=== PATIENT | female | born 1960 | race Caucasian/White ===

== ENCOUNTER 2018-04-19 07:08 | Outpatient (CLI) | payer MEDICAID, SELFPAY ==
[2018-04-19 08:15] LABS: ESR 13 MM/HR (0-30)
[2018-04-19 10:14] LABS: ALT 30 U/L (12-78); C-Reactive Protein 0.07 mg/dL (0.0-0.3)
[2018-04-19 10:42] LABS: Cholesterol 288 mg/dL (50-200); HDL Cholesterol 55 mg/dL (40-60); LDL CHOLESTEROL 172 mg/dL (<100); Triglyceride 287 mg/dL (30-150)
== END 2018-04-19 07:28 ==
PROVIDERS: PCP Family Medicine; Visit Provider Family Medicine
DX: E78.5 Hyperlipidemia, unspecified (principal); M02.9 Reactive arthropathy, unspecified
CPT/HCPCS: 36415; 80061; 83721; 85652; 84460; 86140

== ENCOUNTER 2018-05-12 17:02 | Outpatient (REF) | payer MEDICAID, SELFPAY ==
--- NOTE | 2018-05-12 16:00 | PAPFT_PTH ---
PATIENT: [facility]fsaneh Lowe [id number] AGE/SX: 57/F ROOM: RE05/12/[address]: Soraida Sims V : 1960 BED: DIS: 05/12/2018 SPEC #: [id number] RECD: 05/13/18 13:07 STATUS: NIRMAL DORSEY #: [id number] MOIZ: 05/12/18 16:[address]: Soraida Sims V DEPT: [facility] Cytology RECD BY: Arleen Guillory Tissues: 1 - CX/ENDOCX FOR PAP SMEARS Procedures: PAP THIN PREP/UVM Screening HPV DNA PROBE Comments: [id number]
[2018-05-12 20:37] LABS: HCT 43.8 % (36.0-46.0); HGB 14.4 g/dL (12.0-15.5); Mean Corp. HGB Concentration 32.9 g/dL (32.0-36.0); Mean Corpuscular Hemoglobin 30.8 pg (27.0-33.0); Mean Corpuscular Volume 93.8 fL (80-95); Mean Platelet Volume 11.4 fL (8.0-11.0); Platelet Count 335 x1000/uL (130-400); RBC 4.67 m/cumm (4.00-5.20); White Blood Cell Count 10.27 k/cumm (4.4-10.8)
[2018-05-12 20:59] LABS: ALT 29 U/L (12-78); AST 20 U/L (15-37); Albumin 4.2 g/dL (3.4-5.0); Alkaline Phosphatase 67 U/L (46-116); Anion Gap 7.3 mmol/L (3-11); BUN 15 mg/dL (7-18); Bilirubin, Total 0.5 mg/dL (0.2-1.0); CO2 32.7 mmol/L (21.0-32.0); Calcium 9.9 mg/dL (8.5-10.1); Chloride 100 mmol/L (98-107); Cholesterol 245 mg/dL (50-200); Estimated GFR 56.75 (mL/min/1.73m2); Ferritin 162 ng/mL (8-388); Glucose 75 mg/dL (70-100); HDL Cholesterol 75 mg/dL (40-60); LDL CHOLESTEROL 137 mg/dL (<100); Magnesium 1.9 mg/dL (1.8-2.4); Potassium 4.6 mmol/L (3.5-5.1); Sodium 140 mmol/L (136-145); TSH (W/Ref FT4) 2.88 uIU/mL (0.358-3.74); Total Protein 7.6 g/dL (6.4-8.2); Triglyceride 212 mg/dL (30-150)
== END 2018-05-12 17:22 ==
LOC: NCHCN 17:02
PROVIDERS: PCP Family Medicine; Visit Provider Family Medicine
DX: E78.5 Hyperlipidemia, unspecified (principal); Z13.29 Encounter for screening for other suspected endocrine disorder; Z13.0 Encounter for screening for diseases of the blood and blood-forming organs and certain disorders involving the immune mechanism; Z13.228 Encounter for screening for other metabolic disorders; Z12.4 Encounter for screening for malignant neoplasm of cervix; Z11.51 Encounter for screening for human papillomavirus (HPV)
CPT/HCPCS: 80053; 80061; 83721; 85027; 88142; 82728; 83735; 84443; 87624

== ENCOUNTER 2018-05-23 02:21 | Outpatient (CLI) | payer MEDICAID, SELFPAY ==
[2018-05-23 14:31] LABS: HCT 43.7 % (36.0-46.0); HGB 14.4 g/dL (12.0-15.5); Mean Corpuscular Volume 94.2 fL (80-95); Mean Platelet Volume 10.9 fL (8.0-11.0); Platelet Count 314 x1000/uL (130-400); RBC 4.64 m/cumm (4.00-5.20); White Blood Cell Count 9.13 k/cumm (4.4-10.8)
[2018-05-23 15:05] LABS: ESR 15 MM/HR (0-30)
[2018-05-23 15:49] LABS: ALT 28 U/L (12-78); AST 18 U/L (15-37); Alkaline Phosphatase 66 U/L (46-116); Anion Gap 11.2 mmol/L (3-11); BUN 15 mg/dL (7-18); Bilirubin, Total 0.7 mg/dL (0.2-1.0); C-Reactive Protein 0.09 mg/dL (0.0-0.3); CO2 28.8 mmol/L (21.0-32.0); Calcium 9.3 mg/dL (8.5-10.1); Chloride 102 mmol/L (98-107); Estimated GFR 50.84 (mL/min/1.73m2); Glucose 121 mg/dL (70-100); Potassium 4.1 mmol/L (3.5-5.1); Sodium 142 mmol/L (136-145); Total Protein 7.4 g/dL (6.4-8.2)
== END 2018-05-23 02:41 ==
PROVIDERS: PCP Family Medicine; Visit Provider Family Medicine
DX: K92.1 Melena (principal); R10.9 Unspecified abdominal pain
CPT/HCPCS: 36415; 80053; 85027; 85652; 86140

== ENCOUNTER 2018-06-29 01:13 | Outpatient (CLI) | payer MEDICAID, SELFPAY ==
--- NOTE | 2018-06-29 10:23 | DI.CT_ITS ---
SYMPTOMS/DIAGNOSIS: ABD PAIN, R10.9, BLOOD IN STOOL, K92.1 CT OF THE ABDOMEN AND PELVIS: There are no prior comparison exams. Images were performed from the lung bases through the ischial tuberosities after IV and oral contrast. The heart size is normal. The lung bases are clear. The liver appears mildly enlarged and shows mild fatty infiltration. There are two enhancing areas in the right lobe of the liver, one measuring 1.6 cm and the other near the inferior medial border of the liver measuring 8 mm. They may represent AV malformations. The gallbladder, spleen, adrenals, pancreas, kidneys, uterus, ovaries and bladder are unremarkable. There are diverticula in the sigmoid region of the colon as well as wall thickening of the sigmoid which could represent muscular hypertrophy. No focal mass is visible. There is no surrounding inflammation. The appendix appears normal. No adenopathy, free air or free fluid is seen. The aorta shows mild calcification and is normal in diameter. IMPRESSION: 1. Sigmoid diverticulosis without evidence of diverticulitis. There is muscular hypertrophy. No mass is visible. Correlation with colonoscopy is recomended. 2. Enhancing lesions in the liver may represent AV malformations or hemangiomas. Further evaluation with ultrasound could be considered.
[2018-06-29] MEDS: Omnipaque 350 MG/ML 100 ML BTL IV (10:24)
[2018-06-29] MEDS: Breeza Beverage 473 ML BTL PO ×2 (10:25→10:26)
[2018-06-29] MEDS: Omnipaque 350 MG/ML 50 ML BTL PO (10:26)
== END 2018-06-29 01:33 ==
PROVIDERS: PCP Family Medicine; Visit Provider Family Medicine
DX: R10.9 Unspecified abdominal pain (principal); K92.1 Melena; K57.30 Diverticulosis of large intestine without perforation or abscess without bleeding; K76.9 Liver disease, unspecified
CPT/HCPCS: 74177; J3490; Q9967

== ENCOUNTER 2018-10-28 16:07 | Outpatient (REF) | payer MEDICAID, SELFPAY | END 2018-10-28 16:27 | LOC: NCHCN 16:07 | PROVIDERS: PCP Family Medicine; Visit Provider Family Medicine | DX: R35.0 Frequency of micturition (principal) | CPT/HCPCS: 87086 ==

== ENCOUNTER 2019-01-17 12:58 | Emergency (ER) | payer MEDICAID, SELFPAY ==
[2019-01-17 13:04] VITALS: BP 128/65; PULSE 89; RESP 18; TEMP 36.4; O2SAT 95
--- NOTE | 2019-01-17 13:26 | DI.RAD_ITS ---
SYMPTOMS/DIAGNOSIS: TRAUMA, ANKLE AND FOOT PAIN RIGHT ANKLE: There is a fracture extends transversely through the lateral malleolus. No additional fractures are seen. There is no ankle mortise widening. Lateral soft tissue swelling is seen. There is a small plantar calcaneal spur. IMPRESSION: Nondisplaced fracture of the lateral malleolus. RIGHT FOOT: No fracture or dislocation is seen. IMPRESSION: Negative right foot.
--- NOTE | 2019-01-17 14:48 | ED.GENADUL_ITS ---
Discharge Plan Disposition Patient Disposition: HOME Condition: Stable Discharge Details Chief Complaint: Orthopedic Clinical Impression: Fracture of distal end of fibula Primary Care Provider: Soraida Sims V ED Provider: Leena Collins Home Meds and New Rx's Prescriptions: No Action Spiriva with HandiHaler 1 PUFF capsule, w/inhalation device 1 spray Inhalation PRN PRNRF: 0 atorvastatin [Lipitor] 10 MG tablet 1 tab PO DAILY RF: 0 ibuprofen [Ibuprofen IB] 200 MG tablet QID PRN PRNRF: 0 Discharge Instructions Instructions: Ankle Fracture (ED), Crutch Instructions (ED) Additional Instructions: Please return immediately to the emergency department if you develop any new or worsening symptoms or if you become otherwise concerned. It is extremely important that you call as soon as possible to make an appointment to be seen in follow-up this visit by an orthopedic surgeon and also by your primary care doctor. Referrals: Soraida Sims MD [Primary Care Provider] - Pedro Pablo Brownlee MD [[facility] STAFF PHYSICIAN] - Discharge Data Discharge Date/Time-TO BE ENTERED AT DEPARTURE: 01/17/19 14:51 Medical Decision Making Afsaneh Lowe is a 4-year-old woman with a history of hyperlipidemia, asthma who presented to the emergency department with persistent ankle pain and swelling since stepping off a curb and inverting her ankle 8 days ago. On exam patient is very well and nontoxic appearing. There is edema, tenderness, and ecchymosis over the right medial malleolus and tenderness over the dorsal aspect of the right foot without skin changes. Concern for ankle, foot fracture. Exam/history is not consistent with Hans of or other fracture of the proximal will tibia/fibula, other acute emergent life/limb threatening process. Plan for x-rays. X-rays show nondisplaced distal fibula fracture. I discussed patient presentation and imaging results with Dr. Brownlee orthopedic surgery who requested walking boot, weightbearing as tolerated, outpatient follow-up with orthopedics. Patient was placed on Ortho list for outpatient follow-up. Patient was placed in a walking boot, given crutches for weightbearing as tolerated. Patient ambulated in the emergency department and walking boot without issue. I had a lengthy discussion with the patient regarding home care, return to emergency department precautions, and importance of outpatient follow- up. Patient verbalized understanding of plan was amenable. Patient was discharged home with clear plan for outpatient follow-up. All questions were answered. Medical Records Medical records reviewed: Yes I reviewed the patient's medical records. Imaging Data Radiologic Study: Attestation: I personally reviewed and interpreted this imaging study as follows: Radiologist's impression: RIGHT ANKLE: There is a fracture extends transversely through the lateral malleolus. No additional fractures are seen. There is no ankle mortise widening. Lateral soft tissue swelling is seen. There is a small plantar calcaneal spur. IMPRESSION: Nondisplaced fracture of the lateral malleolus. RIGHT FOOT: No fracture or dislocation is seen. IMPRESSION: Negative right foot. HPI General Mode of arrival: ambulatory . Date/Time Provider Initiated Documentation: 01/17/19 13:26 . Limitations to Documentation: no limitations . Information obtained by: patient . HPI Narrative: Afsaneh Lowe is a 4-year-old woman with a history of hyperlipidemia, asthma presenting to the emergency department with ankle pain. Patient reports that 8 days ago she stepped off a curb and inverted her right ankle. She has had swelling and pain to the right ankle since that time. Patient has been able to weight-bear but with some pain. She reports that she came to the emergency department today given continuation of symptoms. There has been no worsening of symptoms. She denies any pain to the thigh, knee, lower leg, or foot. Reports that she feels otherwise very well and in her usual state of health. Denies other symptoms. Denies any other injuries at the time of the ankle injury, did not fall to the ground, did not hit her head. Related Data Home Medications Medication Instructions Recorded Confirmed tiotropium bromide [Spiriva 1 spray INHALATION PRN PRN 04/19/15 01/17/19 Handihaler] atorvastatin [Lipitor] 1 tab PO DAILY 07/06/15 01/17/19 ibuprofen [Ibuprofen Ib] QID PRN PRN 09/18/15 09/18/15 Allergies Allergy/AdvReac Type Severity Reaction Status Date / Time acetaminophen [From Vicodin] Allergy Intermediate Cold Unverified 01/17/19 13:11 sweats, vomiting cephalexin [Cephalexin] Allergy Intermediate Skin Rash Unverified 01/17/19 13:11 hydrocodone bitartrate Allergy Intermediate Cold Unverified 01/17/19 13:11 [From Vicodin] sweats, vomiting Penicillins Allergy Intermediate rash with Unverified 01/17/19 13:11 all cillins banana Allergy abd Unverified 01/17/19 13:11 bloating clarithromycin [From Biaxin] Allergy rash/hives Unverified 01/17/19 13:11 adhesive tape AdvReac Unknown Skin Rash Unverified 01/17/19 13:11 adhesive AdvReac Topical Unverified 01/17/19 13:11 Irritation codeine AdvReac sick Unverified 01/17/19 13:11 black hair dye Allergy Intermediate Hives Uncoded 01/17/19 13:11 eggs Allergy bloating Uncoded 01/17/19 13:11 General Stated Complaint: Orthopedic MIGUEL: 4 Review of Systems Review of Systems Constitutional: denies fevers Eyes: denies eye pain ENT: denies facial pain, dental pain, sore throat Cardiovascular: denies chest pain Respiratory: denies SOB GI: denies abdominal pain, vomiting, diarrhea : denies flank pain MSK: denies back pain, neck pain, reports right ankle pain Skin: denies rash Neuro: denies headaches, numbness, weakness PFSH Medical History AGATHA III (cervical intraepithelial neoplasia III) Surgical History Arthroscopy, Shoulder Trigger Finger release Family History Mother Personal history of malignant neoplasm Social History Smoking/Tobacco Use Status: Current every day Tobacco Type: cigarettes Alcohol Intake: never Drug use: Never Do you feel safe at home: Yes Do you feel safe in your relationship?: Yes Exam Narrative Exam Narrative: Constitutional: well and [id number], pleasant, conversing normally HENT: head atraumatic/normocephalic/normal inspection, mucous membranes moist Eyes: conjunctiva normal, sclera normal, pupils 3mm b/l Neck: no stridor, trachea midline Resp: normal work of breathing Cardio: normal rate, normal rhythm Skin: warm, dry, normal color, no rash Neuro: alert, not altered, grossly non-focal, normal tone Ext: Right ankle with mild edema, ecchymosis over the medial aspect, tenderness the medial aspect of the ankle and the proximal dorsal aspect of the foot, no tenderness of the lateral right ankle, heel, plantar surface of the foot. Normal range of motion of the right toes. DP pulses intact and symmetric. Brisk cap refill of the left toes. Normal sensation of the left foot. No tenderness to palpation of the proximal lower leg. Psych: normal mood, normal affect, normal behavior Course Vital Signs Temperature 36.4 C L 01/17/19 13:04 Pulse 89 01/17/19 13:04 Respiratory Rate 18 01/17/19 13:04 Blood Pressure 128/65 01/17/19 13:04 Pulse Oximetry 95 01/17/19 13:04 Temperature 36.4 C L 01/17/19 13:04 Temperature Source Temporal Artery Scan 01/17/19 13:04 Pulse 89 01/17/19 13:04 Respiratory Rate 18 01/17/19 13:04 Respiratory Effort Non-Labored 01/17/19 13:10 Blood Pressure 128/65 01/17/19 13:04 Blood Pressure Position Supine 01/17/19 13:04 Pulse Oximetry 95 01/17/19 13:04 Oxygen Delivery Method Room Air 01/17/19 13:04 Oxygen Flow Rate 0 01/17/19 13:04 Pain Level 5 01/17/19 13:21
== END 2019-01-17 14:51 | disposition home or self-care (01) ==
PROVIDERS: Emergency Provider Student in an Organized Health Care Education/Training Program; PCP Family Medicine
DX: S82.491A Other fracture of shaft of right fibula, initial encounter for closed fracture (principal); W10.1XXA Fall (on)(from) sidewalk curb, initial encounter; X50.9XXA Other and unspecified overexertion or strenuous movements or postures, initial encounter
CPT/HCPCS: 27786; 73610; 73630; E0114; L4361

== ENCOUNTER 2019-01-30 13:54 | Outpatient (CLI) | payer MEDICAID, SELFPAY ==
--- NOTE | 2019-01-30 10:57 | DI.RAD_ITS ---
SYMPTOM/DIAGNOSIS: F/U FRACTURE RIGHT ANKLE: 01/30 Four views were obtained. The previously described fracture of the distal fibula is again noted with no gross interval change in alignment of the fracture fragments in comparison with examination of 01/17/19.. The ankle mortise remains well maintained.
== END 2019-01-30 14:14 ==
PROVIDERS: PCP Family Medicine; Visit Provider Student in an Organized Health Care Education/Training Program
DX: S82.491D Other fracture of shaft of right fibula, subsequent encounter for closed fracture with routine healing (principal)
CPT/HCPCS: 73610

== ENCOUNTER 2019-02-20 11:40 | Outpatient (CLI) | payer MEDICAID, SELFPAY ==
--- NOTE | 2019-02-20 10:53 | DI.RAD_ITS ---
SYMPTOM/DIAGNOSIS; F/U FRACTURE RIGHT ANKLE: 02/20 Three views were obtained. Ankle mortise appears fairly well maintained. There is a nondisplaced fracture as previously described of the distal fibula, no gross interval change in alignment in comparison with examination of January 30
== END 2019-02-20 12:00 ==
PROVIDERS: PCP Family Medicine; Visit Provider Student in an Organized Health Care Education/Training Program
DX: S82.491D Other fracture of shaft of right fibula, subsequent encounter for closed fracture with routine healing (principal)
CPT/HCPCS: 73610

== ENCOUNTER 2019-07-20 15:42 | Outpatient (REF) | payer MEDICAID, SELFPAY ==
[2019-07-20 21:42] LABS: ALT 26 U/L (14-59); AST 21 U/L (15-37); Albumin 4.3 g/dL (3.4-5.0); Alkaline Phosphatase 63 U/L (46-116); BUN 12 mg/dL (7-18); Bilirubin, Total 0.7 mg/dL (0.2-1.0); CREATININE 0.94 mg/dL (0.55-1.02); Calcium 9.6 mg/dL (8.5-10.1); Chloride 102 mmol/L (98-107); Glucose 63 mg/dL (74-106); Potassium 4.1 mmol/L (3.5-5.1); Sodium 142 mmol/L (136-145); Total Protein 7.5 g/dL (6.4-8.2)
[2019-07-24 15:35] LABS: IgA 198 mg/dL (85-499); Tissue Transglutaminase IgA 1.6 U/mL (<4.0)
== END 2019-07-20 16:02 ==
LOC: NCHCN 15:42
PROVIDERS: PCP Family Medicine; Visit Provider Family Medicine
DX: R14.0 Abdominal distension (gaseous) (principal); M02.9 Reactive arthropathy, unspecified
CPT/HCPCS: 80053; 82784; 83516

== ENCOUNTER 2019-07-28 22:45 | Outpatient (REF) | payer MEDICAID, SELFPAY | END 2019-07-28 23:05 | LOC: NCHCN 22:45 | PROVIDERS: PCP Family Medicine; Visit Provider Physician Assistant Medical | DX: R35.0 Frequency of micturition (principal) | CPT/HCPCS: 87086 ==

== ENCOUNTER 2019-07-31 14:52 | Outpatient (CLI) | payer MEDICAID, SELFPAY ==
--- NOTE | 2019-07-31 14:45 | DI.RAD_ITS ---
EXAM: XR SHOULDER LT COMPLETE 2+V INDICATION: EVAL L SHOULDER PAIN. COMPARISON: LEFT SHOULDER COMPLETE from 04/19/2015 TECHNIQUE: 2D digital imaging was performed. FINDINGS: There are degenerative changes seen at the glenohumeral joint characterized by periarticular spurring of the humeral head. There are mild hypertrophic changes at the acromioclavicular joint. Soft tiss ues are unremarkable. No acute fracture or dislocation is present. IMPRESSION: Osteoarthritis of the left shoulder.
--- NOTE | 2019-07-31 14:45 | DI.RAD_ITS ---
EXAM: XR CERVICAL SPINE COMP 4-5V INDICATION: eval spine pain and LUE pain. COMPARISON: No exams were available for comparison TECHNIQUE: 2D digital imaging was performed. FINDINGS: The odontoid is intact. The lateral masses are well aligned. There are endplate osteophytes and dis c space narrowing at C5-6 and C6-7. [id number] neural foraminal narrowing is seen bilaterally at C5-6 and C6-C7. No acute fracture or subluxation is seen in the cervical spine. The prevertebral soft tissues are unremarkable. IMPRESSION: Moderate degenerative changes in the cervical spine as described.
== END 2019-07-31 15:12 ==
PROVIDERS: PCP Family Medicine; Visit Provider Student in an Organized Health Care Education/Training Program
DX: M25.512 Pain in left shoulder (principal); M19.012 Primary osteoarthritis, left shoulder; M54.2 Cervicalgia; M50.322 Other cervical disc degeneration at C5-C6 level; M50.323 Other cervical disc degeneration at C6-C7 level
CPT/HCPCS: 72050; 73030

== ENCOUNTER 2019-08-03 16:23 | Outpatient (REF) | payer MEDICAID, SELFPAY ==
[2019-08-03 20:03] LABS: Bacteria Negative HPF (Negative); C & S Indicated? No; Casts Negative LPF (Negative); Crystals Negative HPF (Negative); Epithelial Cells Negative HPF (Negative); Mucus Negative (Negative); Other Cells Negative (Negative); RBC Negative HPF (0-2)
== END 2019-08-03 16:43 ==
LOC: NCHCN 16:23
PROVIDERS: PCP Family Medicine; Visit Provider Family Medicine
DX: R35.0 Frequency of micturition (principal)
CPT/HCPCS: 81015

== ENCOUNTER 2019-09-01 14:37 | Outpatient (CLI) | payer MEDICAID, SELFPAY ==
[2019-09-04 16:36] LABS: COVID-19 RT-PCR Result Not Detected (NotDetected)
== END 2019-09-01 14:57 ==
PROVIDERS: PCP Family Medicine; Visit Provider Nurse Practitioner Family
DX: Z20.828 Contact with and (suspected) exposure to other viral communicable diseases (principal); J44.9 Chronic obstructive pulmonary disease, unspecified
CPT/HCPCS: U0003

== ENCOUNTER 2020-01-29 08:57 | Outpatient (REF) | payer MEDICAID, SELFPAY ==
[2020-01-29 19:41] LABS: HCT 43.4 % (36.0-46.0); HGB 13.8 g/dL (11.2-15.7); MCH 30.8 pg (27.0-33.0); MCHC 31.8 % (32.0-36.0); MCV 96.9 fL (80-95); MPV 11.5 fL (8.0-11.0); Platelet Count 347 10^3/uL (130-400); RBC 4.48 10^6/uL (3.93-5.22); RDW 12.4 % (11.7-14.6); RDW-SD 44.1 fL; WBC 9.45 10^3/uL (4.4-10.8)
[2020-01-29 20:28] LABS: ALT 32 U/L (14-59); AST 21 U/L (15-37); Albumin 3.8 g/dL (3.4-5.0); Alkaline Phosphatase 69 U/L (46-116); BUN 14 mg/dL (7-18); Bilirubin, Total 0.6 mg/dL (0.2-1.0); CREATININE 1.02 mg/dL (0.55-1.02); Calcium 9.2 mg/dL (8.5-10.1); Calculated LDL 106 mg/dL (<100); Chloride 105 mmol/L (98-107); Cholesterol 198 mg/dL (<200); Estimated GFR 55.09 (mL/min/1.73m2); Glucose 95 mg/dL (74-106); HDL Cholesterol 57 mg/dL (40-60); Potassium 4.5 mmol/L (3.5-5.1); Sodium 142 mmol/L (136-145); TSH 1.93 uIU/mL (0.36-3.74); Triglyceride 179 mg/dL (<150)
== END 2020-01-29 09:17 ==
LOC: NCHCN 08:57
PROVIDERS: PCP Family Medicine; Visit Provider Family Medicine
DX: R53.83 Other fatigue (principal); E83.42 Hypomagnesemia; E78.5 Hyperlipidemia, unspecified
CPT/HCPCS: 80053; 80061; 85027; 83735; 84443

== ENCOUNTER 2020-02-01 16:53 | Outpatient (REF) | payer MEDICAID, SELFPAY ==
[2020-02-01 19:34] LABS: C-Reactive Protein 0.18 mg/dL (0.0-0.3)
[2020-02-01 20:11] LABS: ESR 28 mm/hr (0-30)
== END 2020-02-01 17:13 ==
LOC: NCHCN 16:53
PROVIDERS: PCP Family Medicine; Visit Provider Family Medicine
DX: R51 Headache (principal); M79.10 Myalgia, unspecified site
CPT/HCPCS: 85652; 86140

== ENCOUNTER 2020-04-01 15:37 | Outpatient (REF) | payer MEDICAID, SELFPAY ==
[2020-04-04 03:02] LABS: Patient Race White; SARS-CoV-2 RNA Undetected (Undetected); SARS-CoV-2 Specimen Source Nasal
== END 2020-04-01 15:57 ==
LOC: NCHCN 15:37
PROVIDERS: PCP Family Medicine; Visit Provider Family Medicine
DX: Z20.828 Contact with and (suspected) exposure to other viral communicable diseases (principal)
CPT/HCPCS: U0003

== ENCOUNTER 2020-04-05 14:06 | Outpatient (REF) | payer MEDICAID, SELFPAY ==
[2020-04-09 23:31] LABS: Patient Race White; SARS-CoV-2 RNA Undetected (Undetected); SARS-CoV-2 Specimen Source Nasal
== END 2020-04-05 14:26 ==
LOC: NCHCN 14:06
PROVIDERS: PCP Family Medicine; Visit Provider Family Medicine
DX: Z20.828 Contact with and (suspected) exposure to other viral communicable diseases (principal)
CPT/HCPCS: U0003

== ENCOUNTER 2020-06-03 00:33 | Outpatient (CLI) | payer MEDICAID, SELFPAY ==
--- NOTE | 2020-06-03 | DI.US_ITS ---
EXAM: US ABDOMEN CLINICAL HISTORY: RUQ PAIN,R10.11,ABD BLOATING,R14.0 TECHNIQUE: Ultrasound abdomen performed using standard protocol. FINDINGS: ABDOMINAL AORTA AND IVC: Visualized portions normal caliber. PANCREAS: Normal where visualized. LIVER: There is diffuse increased echogenicity of the liver. This is consistent with fatty infiltrat ion. The liver measures almost 21 cm. There is a 1.9 x 1.5 x 2 cm hypoechoic area in the right lobe of the liver. This appears to correspond to the enhancing lesion on the CT abdomen and pelvis from 06/29/2018. Hepatopedal flow in the Portal Vein. GALLBLADDER: No evidence of cholelithiasis. No evidence of wall thickening. No pericholecystic fluid identified. BILIARY SYSTEM: Common bile duct measures < 7 mm. No intrahepatic biliary ductal dilation. ASHER'S SIGN: Negative. KIDNEYS: Kidneys are symmetric in size. No evidence of renal calculi. No evidence of hydronephrosis. No renal mass or cyst identified. SPLEEN: Not enlarged. ASCITES: None seen. IMPRESSION: 1. Hepatomegaly and hepatic steatosis. 2. 1.9 x 1.5 x 2 cm hypoechoic avascular lesion in the right lobe of the liver. It appears to corres pond to enhancing mass seen on the CT scan from 06/29/2018. A follow-up CT scan of the abdomen with co ntrast using the hepatic hemangioma protocol is recommended for re-evaluation. DATA REPOSITORY:
--- NOTE | 2020-06-03 08:20 | DI.CTLCSR_ITS ---
EXAM: CT CHEST LUNG CANCER SCREEN CLINICAL HISTORY: SCREENING FOR LUNG CA,F17.200,CURRENT SMOKER,[facility],Z00.00 TECHNIQUE: Imaging Protocol: Axial computed tomography images with coronal and sagittal reformatted images were created and reviewed COMPARISON: CR CHEST 2 VIEWS PA,LAT from 10/15/2014 FINDINGS: Tracheobronchial tree: Patent where visualized. Mediastinum and Milagros: No dominant adenopathy or fluid collection. Pulmonary parenchyma: No consolidation or dominant measurable mass. No architectural distortion. Ther e is a triangular nodule associated with the left major fissure superiorly most consistent with a int raparenchymal lymph node. There is a calcified granuloma seen in the right middle lobe. Lung Nodules: No suspicious noncalcified pulmonary nodules. Pleura: No effusion or pneumothorax. Heart: The heart is not dilated. Moderate coronary artery calcification. No pericardial effusion. Aorta: Thoracic aorta non-dilated.Atherosclerosis. Upper abdomen: Unremarkable. Bones: Within normal limits. Soft Tissues: Unremarkable. IMPRESSION: No pulmonary nodules. Lung RADS Cat 1 - Negative: No nodules and definitely benign nodules Lung-RADS 1.0 CATEGORIES: Category 0 - Prior chest CT exam(s) being located for comparison. Category 1 - Annual screening in 12 months. No nodules or definitely benign nodules. Category 2 - Annual screening in 12 months. Benign appearance. Nodules with low likelihood of becomin g active cancer. Category 3 - 6-month follow-up. Probably benign. Short-term follow-up suggested. Nodules with low lik elihood of becoming active cancer. Category 4A - 3-month follow-up and CT/PET if >8 mm in size. Suspicious finding. Findings which requi re additional testing. Category 4B - Findings which require additional testing and tissue sampling. Suspicious finding. C Added to Any of the Above - History of prior lung cancer screening. S Added to Any of the Above - Significant unexpected other finding. RADIATION DOSE DELIVERED: 76.15mGy.cm Total DLP DATA REPOSITORY: All CT scans at this facility are submitted to the National Radiology Data Registry (NRDR) Dose Index Registry (DIR) with the [employer] (ACR). RADIATION OPTIMIZATION: All CT scans at this facility use at least one of these dose optimization te chniques: automated exposure control; mA and/or kV adjustment per patient size (includes targeted exa ms where dose is matched to clinical indication); or iterative reconstruction.
== END 2020-06-03 00:53 ==
PROVIDERS: PCP Family Medicine; Visit Provider Family Medicine
DX: F17.210 Nicotine dependence, cigarettes, uncomplicated (principal); Z00.00 Encounter for general adult medical examination without abnormal findings; K76.0 Fatty (change of) liver, not elsewhere classified; R16.0 Hepatomegaly, not elsewhere classified; K76.89 Other specified diseases of liver
CPT/HCPCS: G0297; 76700

== ENCOUNTER 2020-06-24 01:26 | Outpatient (CLI) | payer MEDICAID, SELFPAY ==
[2020-06-24 08:15] LABS: CREATININE 1.16 mg/dL (0.55-1.02); Estimated GFR 47.49 (mL/min/1.73m2)
== END 2020-06-24 01:46 ==
PROVIDERS: PCP Family Medicine; Visit Provider Family Medicine
DX: K76.0 Fatty (change of) liver, not elsewhere classified (principal)
CPT/HCPCS: 82565

== ENCOUNTER 2020-06-26 12:47 | Outpatient (CLI) | payer MEDICAID, SELFPAY ==
--- NOTE | 2020-06-26 11:15 | DI.RAD_ITS ---
EXAM: XR SHOULDER RT COMPLETE 2+V CLINICAL HISTORY: F/u. TECHNIQUE: 2D digital imaging was performed. COMPARISON: CR XR SHOULDER LT COMPLETE 2+V from 06/26/2020 FINDINGS: Two views of the right shoulder reveal no evidence of fracture nor dislocation no abnormal soft tissu e calcifications. The subacromial space is not diminished. There are degenerative changes in the gl enohumeral joint with some joint space narrowing and there is a prominent osteophyte on the inferior articular surface of the humeral head. There is some widening of the AC joint, possibly postsurgical . No evidence of os acromiale. IMPRESSION: Prominent osteophyte on the inferior articular surface of the humeral head-degenerative osteoarthriti c changes. Widened ipsilateral right AC joint. Correlation with any history of prior decompression surgery teodoro mmended. DATA REPOSITORY: RADIATION DOSE DELIVERED:
--- NOTE | 2020-06-26 11:15 | DI.RAD_ITS ---
EXAM: XR CERVICAL SP OSBORN TRAUMA 2-3V CLINICAL HISTORY: F/u. TECHNIQUE: 2D digital imaging was performed. COMPARISON: Prior x-rays July 2019 FINDINGS: There is no evidence of fracture, listhesis, nor offset of the spinal laminar line. There is chronic disc space narrowing at C5-6 level and C6-7 level again noted, unchanged. Other disc spaces above t his exhibited relatively well preserved disc height. There is some degenerative changes in the lower facet joints. No cervical ribs. No osseous lesions. IMPRESSION: Chronic degenerative disc disease. No significant radiographic change compared to July 2019. DATA REPOSITORY: RADIATION DOSE DELIVERED:
--- NOTE | 2020-06-26 11:15 | DI.RAD_ITS ---
EXAM: XR SHOULDER LT COMPLETE 2+V CLINICAL HISTORY: F/u. TECHNIQUE: 2D digital imaging was performed. COMPARISON: CR XR SHOULDER LT COMPLETE 2+V from 07/31/2019 FINDINGS: There is no evidence of fracture or dislocation. There are no abnormal soft tissue calcifications in the subacromial space. Subacromial space does not appear diminished. Main finding here is a prominent osteophyte on the inferior articular surface of the humeral head, si milar to what is seen in the opposite-right Shoulder. However, there is also an intra-articular loos e peripherally calcified body evident which measures approximately 8 x 5 millimeters. This is just m edial to the humeral head-neck junction and is most probably within the inferior recess of the glenoh umeral joint. IMPRESSION: DATA REPOSITORY: RADIATION DOSE DELIVERED:
== END 2020-06-26 13:07 ==
PROVIDERS: PCP Family Medicine; Visit Provider Student in an Organized Health Care Education/Training Program
DX: M25.512 Pain in left shoulder (principal); M25.712 Osteophyte, left shoulder; M25.511 Pain in right shoulder; M19.011 Primary osteoarthritis, right shoulder; M25.711 Osteophyte, right shoulder; M47.812 Spondylosis without myelopathy or radiculopathy, cervical region
CPT/HCPCS: 72040; 73030

== ENCOUNTER 2020-07-22 01:39 | Outpatient (CLI) | payer MEDICAID, SELFPAY ==
--- NOTE | 2020-07-22 | DI.MRI_ITS ---
EXAM: MR UPPER JOINT RT WO CLINICAL HISTORY: RT SHOULDER PAIN, TENDONITIS,ARTHRITIS RT GLENOHUMERAL JOINT. TECHNIQUE: Multiplanar multisequence MRI was performed. COMPARISON: CR XR SHOULDER RT COMPLETE 2+V from 06/26/2020 CR XR SHOULDER RT COMPLETE 2+V from 06/26/2020 FINDINGS: BONES: There is no fracture or contusion pattern. JOINTS: There are again seen postsurgical changes at the acromioclavicular joint. There is a large o steophyte at the inferior aspect of the humeral head. There is loss of the articular cartilage at th e glenohumeral joint. Small joint effusion. TENDONS: Supraspinatus: There is tendinosis of the supraspinatus tendon. Infraspinatus: Unremarkable. Subscapularis: There is mild tendinosis of the subscapularis tendon. Teres Minor: Unremarkable. Biceps and Jennings: Unremarkable. MUSCLES: Unremarkable. GLENOID LABRUM: Abnormal signal in size is seen at the posterior and inferior glenoid labrum. Findin gs are suggestive of labral degeneration. A tear cannot be excluded. SOFT TISSUES: Unremarkable. LIGAMENTS: Unremarkable. OTHER: Subacromial and subdeltoid bursae are unremarkable. IMPRESSION: 1. Tendinosis of the supraspinatus and subscapularis tendons. 2. Degeneration of the glenoid labrum. A tear cannot be entirely excluded. 3. Marked degenerative changes of the glenohumeral joint. 4. Postsurgical changes seen at the acromioclavicular joint. DATA REPOSITORY:
== END 2020-07-22 01:40 | disposition home or self-care (01) ==
LOC: DI 01:42
PROVIDERS: PCP Family Medicine; Visit Provider Student in an Organized Health Care Education/Training Program
DX: M19.011 Primary osteoarthritis, right shoulder (principal); M77.8 Other enthesopathies, not elsewhere classified
CPT/HCPCS: 73221

== ENCOUNTER 2020-08-12 02:35 | Outpatient (CLI) | payer MEDICAID, SELFPAY ==
--- NOTE | 2020-08-12 | DI.MRI_ITS ---
EXAM: MR ABDOMEN WO/W CLINICAL HISTORY: LIVER LESION,K76.9 TECHNIQUE: Multiplanar multisequence MRA of the Abdomen was performed. CONTRAST MATERIAL: IV Contrast: 15 mL of Dotarem contrast administered. US US ABDOMEN from 06/03/2020 FINDINGS: Liver: There are 2 hepatic lesions present which show similar characteristics on this MRI examination . The largest is in the posterior segment of the right lobe of the liver and measures 2.1 x 1.4 cm. The smaller is seen in the right lobe along its medial border and measures 0.9 x 1.1 cm. They are h yperintense on T2 weighted images and hypointense on the T1 weighted images. They show progressive e nhancement following contrast administration beginning peripherally. Subsequent images show complete enhanced of the masses. The findings are most consistent with hepatic hemangioma. These correspond to the abnormality seen on the ultrasound from 06/03/[address] scan from 06/29/2018. Pancreas: Unremarkable. Gallbladderand Bile Ducts: Unremarkable. Adrenals: Unremarkable. Kidneys: There is a 0.7 cm simple cyst in the midpole of the left kidney. No further workup is recom mended. Spleen: Unremarkable. Aorta: Unremarkable. Soft Tissues: Unremarkable. Bone: Unremarkable. Lymph Nodes: Unremarkable. IMPRESSION: Two stable hepatic lesions as described above. They are unchanged compared to the CT scan from 2018 and correspond to the ultrasound finding from 06/03/2020. The findings are most suggestive of h epatic hemangioma. DATA REPOSITORY:
[2020-08-12] MEDS: Gadoterate meglumine 20 ML VIAL 15 ML IVP (08:30)
== END 2020-08-12 02:55 ==
PROVIDERS: PCP Family Medicine; Visit Provider Family Medicine
DX: K76.89 Other specified diseases of liver (principal)
CPT/HCPCS: 74183

== ENCOUNTER 2020-09-25 02:59 | Outpatient (CLI) | payer MEDICAID, SELFPAY ==
[2020-09-25 11:08] LABS: Source Nasal/Nares
[2020-09-25 14:05] LABS: COVID-19 PCR Negative (Negative)
== END 2020-09-25 03:00 | disposition home or self-care (01) ==
LOC: LBO 02:59
PROVIDERS: PCP Family Medicine; Visit Provider Surgery
DX: Z20.822 Contact with and (suspected) exposure to COVID-19 (principal); Z01.818 Encounter for other preprocedural examination
CPT/HCPCS: 87635

== ENCOUNTER 2020-09-27 07:21 | Day surgery (SDC) | payer MEDICAID, SELFPAY ==
[2020-09-27] VITALS (7 sets, daily range): BP systolic 104–151; BP diastolic 53–102; PULSE 85–100; RESP 13–21; TEMP 36.4–36.7; O2SAT 94–99
[2020-09-27] MEDS: Lactated Ringers 1,000 ML 80 ML IV (07:51)
--- NOTE | 2020-09-27 09:07 | STOM_PTH ---
PATIENT: Afsaneh Lowe LOC: [facility] U#:[id number] AGE/SX: 59/F ROOM: RE09/27/[address]: Sheryl Tanner : 1960 BED: DIS: 09/27/2020 SPEC #: [id number] RECD: 09/27/20 12:22 STATUS: NIRMAL REIna #: [id number] MOIZ: 09/27/20 09:[address]: Sheryl Tanner DEPT: Surgical Specimen RECD BY: Arleen Guillory ENTERED: 09/27/20 12:25 SP TYPE: STOMACH OTHR DR: Soraida Sims V Tissues: 1 - BIOPSY BOWEL 2 - STOMACH BIOPSY 3 - STOMACH BIOPSY 4 - ESOPHAGUS BIOPSY 5 - ESOPHAGUS BIOPSY Procedures: GROSS AND MICRO LEVEL 4 Comments: [id number]
--- NOTE | 2020-09-27 09:13 | W.PM.ENDDOP ---
Date of service: 09/27/20 Time of Service: 09:14 Endoscopy Report DATE OF PROCEDURE: 09/27/20 PRE-OP DIAGNOSIS: Medication refractory GERD/smoker POST-OP DIAGNOSIS: other (Duodenitis /gastritis-mild) ANESTHESIA TYPE: General LMA/ETT PROCEDURE DESCRIPTION: After informed consent was obtained the patient was take to the procedure room and placed in a supine position. Monitors were applied and a time out was done. The patients name, date of , procedure type, allergies to medications and metal in their body was reviewed. A bite block was placed and the patient was sedated. Once sedated and comfortable the gastroscope was advanced through the oropharynx which was grossly normal into the esophagus. The proximal and mid-esophagus were nl. In the distal esophagus: There is no esophageal erosions, varices, diverticula, or stricture apparent. The scope was advanced into the stomach and through the pylorus into the 3rd portion of the duodenum. The duodenum was noted to be mild gastritis. Biopsies were done-all specimen is retrieved and no bleeding is noted The scope was retracted back into the stomach and biopsies were done to rule out H. pylori. There is mild gastritis in a linear straight fashion radiating from the antrum. No Ulcers. Biopsies were taken. The scope was retroflexed. The cardia and fundus were noted to be normal. There is no hiatal hernia noted. The scope was retracted back into the esophagus and biopsies were done of the GE junction to rule out Branch's. The Z line was regular. The scope was removed and the patient was woken up and taken back to [facility] in stable condition.
--- NOTE | 2020-09-27 09:16 | W.PM.DSUDISC ---
Discharge Plan Disposition Patient Disposition: HOME Condition: Good Discharge Details Reason For Visit: stomach scope Attending Provider: Sheryl Tanner Primary Care Provider: Soraida Sims V Home Meds and New Rx's Prescriptions: New pantoprazole [Protonix] 40 mg tablet,delayed release (DR/EC) 40 mg PO DAILY Qty: 30 RF: 12 sucralfate [Carafate] 1 gram tablet 1 g PO QACHS Qty: 120 RF: 12 Continued albuterol sulfate [ProAir HFA] 90 mcg/actuation HFA aerosol inhaler 2 puff IH Q4-5H PRNRF: 0 budesonide-formoterol [Symbicort] 80-4.5 mcg/actuation HFA aerosol inhaler 1 puff IH BID RF: 0 albuterol sulfate 2.5 mg /3 mL (0.083 %) solution for nebulization 2.5 mg IH Q4H PRNRF: 0 loratadine [Allergy Relief (loratadine)] 10 mg tablet 10 mg PO DAILY PRNRF: 0 gabapentin 100 mg capsule 100 mg PO DAILY RF: 0 pramipexole [Mirapex] 0.125 mg tablet 0.125 mg PO DAILY RF: 0 bupropion HCl [Wellbutrin XL] 150 mg tablet extended release 24 hr 150 mg PO QAM RF: 0 docusate sodium [Colace] 100 mg capsule 100 mg PO DAILY PRNRF: 0 fluticasone propionate [Flonase Allergy Relief] 50 mcg/actuation spray,suspension 1 spray CURTIS DAILY PRNRF: 0 oxycodone 10 mg tablet 10 mg PO QID PRNRF: 0 Spiriva with HandiHaler 1 PUFF capsule, w/inhalation device 1 spray Inhalation PRN PRNRF: 0 ibuprofen [Ibuprofen IB] 200 MG tablet 200 mg PO QID PRN PRNRF: 0 Discharge Instructions Additional Instructions: Findings:gastritis/duodentitis Protonix daily carafate 4x/ day Continue with lifestyle modifications: no alcohol, tobacco products, Aspirin or NSAID's (ibuprofen, Motrin, Naprosyn, aleve, etc), soda pop/any carbonated beverages, caffeine (including tea & chocolate), and acidic foods, (tomatoes, citrus, onions, peppermints) spicy foods. Do not lie down for 30 minutes after eating, and do not eat 2 hours prior to bedtime. Avoid wearing tight fitting clothing/ belts -Stop smoking -stop taking ibuprofen/Naprosyn -talk to PCP about starting Celebrex Follow up: PCP for biopsy results Will also send a copy in 2-3 wks Please call if you develop: fevers >101.5 Nausea or Vomiting Abdominal pain that is not transient DAY SURGERY UNIT POST EGD INSTRUCTIONS 1. Because there will be medication in your system for the next 24 hours, you may feel a little sleepy. Your coordination will be affected. Therefore: a. Do not drive or operate dangerous equipment for 24 hours. b. Do not drink alcohol beverages for 24 hours (not even beer). c. Plan to go home and rest for the day. 2. Generally there are no restrictions on your activity after a day or so has gone by, but you may feel a bit fatigued for a few days. 3 After you arrive home you may have a light meal and return to a normal diet as you can tolerate it without feeling sick to your stomach. 4. After surgery, you may feel pain or discomfort. This should be only transient, but if it persists please contact your doctor. 5. If there are any questions regarding the findings of your procedure, please feel free to contact your doctor. 6. If you are unable to contact your doctor with a problem, contact the hospital at [phone]. 7. Continue all your regular medications unless directed otherwise. I understand the above instructions and have no questions. Signature of Patient or Responsible Adult Escort Date/Time Name of Responsible Adult Escort Signature of Nurse Date/Time Discharge Orders Discharge Orders: Discharge Order (Routine); Ordered 09/27/20 Ordered By: Sheryl Tanner DS: Diagnosis Discharge Diagnosis (1) GERD (gastroesophageal reflux disease): Status: Chronic (2) Gastritis: Status: Acute (3) Duodenitis: Status: Acute (4) Tobacco use: Status: Acute (5) COPD (chronic obstructive pulmonary disease): Status: Chronic
[2020-09-27] MEDS: Albuterol/Ipratropium 3 ML UPD VIAL UPD (09:50)
== END 2020-09-27 10:43 | disposition home or self-care (01) ==
PROVIDERS: PCP Family Medicine; Visit Provider Surgery
PROC: 0DJ08ZZ Inspection of Upper Intestinal Tract, Via Natural or Artificial Opening Endoscopic (ICD-10-PCS; CPT 43239; principal; 2020-09-27 08:15)
DX: K21.00 Gastro-esophageal reflux disease with esophagitis, without bleeding (principal); F17.210 Nicotine dependence, cigarettes, uncomplicated; K29.80 Duodenitis without bleeding; K29.70 Gastritis, unspecified, without bleeding; K31.89 Other diseases of stomach and duodenum
CPT/HCPCS: 43239; 88305; J2001; J7620

== ENCOUNTER 2020-11-18 03:07 | Outpatient (CLI) | payer MEDICAID, SELFPAY ==
--- NOTE | 2020-11-18 | DI.RAD_ITS ---
Exam(s) XR LUMBAR SPINE COMPLETE EXAM: XR LUMBAR SPINE COMPLETE CLINICAL HISTORY: ACUTE BACK PAIN, M54.89. TECHNIQUE: 2D digital imaging was performed. COMPARISON: No exams were available for comparison FINDINGS: There are 5 lumbar type vertebral bodies. No spondylolysis or spondylolisthesis is present. There i s mild disc space narrowing at T12-L1. There are endplate osteophytes at several levels of the lumba r spine including T12-L1, L3-L4 and L4-L5. Degenerative changes of the facets are seen at L4-5 and L 5-S1. No acute fracture or subluxation is seen. The bones are normally mineralized. IMPRESSION: Mild degenerative changes in the lumbar spine. DATA REPOSITORY: RADIATION DOSE DELIVERED:
== END 2020-11-18 03:27 ==
PROVIDERS: PCP Family Medicine; Visit Provider Family Medicine
DX: M54.89 Other dorsalgia (principal); M51.35 Other intervertebral disc degeneration, thoracolumbar region; M47.817 Spondylosis without myelopathy or radiculopathy, lumbosacral region
CPT/HCPCS: 72110

== ENCOUNTER 2021-01-02 16:29 | Outpatient (REF) | payer MEDICAID, SELFPAY ==
[2021-01-04 13:02] LABS: COVID-19 RT-PCR UVMMC Result Negative (Negative)
== END 2021-01-02 16:30 | disposition home or self-care (01) ==
LOC: NCHCN 16:29
PROVIDERS: PCP Family Medicine; Visit Provider Family Medicine
DX: J20.9 Acute bronchitis, unspecified (principal); J30.2 Other seasonal allergic rhinitis; Z20.822 Contact with and (suspected) exposure to COVID-19
CPT/HCPCS: U0003

== ENCOUNTER 2021-04-02 01:14 | Outpatient (CLI) | payer MEDICAID, SELFPAY ==
--- NOTE | 2021-04-02 | DI.MRI_ITS ---
Exam(s) MR LUMBAR SPINE WO EXAM: MR LUMBAR SPINE WO CLINICAL HISTORY: LOW BACK PAIN, M54.50,PAIN T12-L1 level,mild disc space narrowing,radiates. TECHNIQUE: Multiplanar multisequence MRI of the Lumbar spine was performed. COMPARISON: CR XR LUMBAR SPINE COMPLETE from 11/18/2020 CR XR LUMBAR SPINE COMPLETE from 11/18/2020 FINDINGS: Bones: The last intervertebral disc space is designated the L5/S1 level for the numbering purpose of this examination. The vertebral body heights are well maintained. Alignment is satisfactory. The si gnal characteristics are unremarkable. Cord: The conus tip ends at the T12 level. It is of normal size and signal intensity. T12-L1: No disc herniations or bulges are present. No central spinal canal or neural foraminal stenos is. L1-2: There is a mild diffuse disc bulge. No central spinal canal or neural foraminal stenosis. L2-3: No disc herniations or bulges are present. No central spinal canal or neural foraminal stenosis . L3-4: There is a mild diffuse disc bulge. Degenerative changes of the facets are seen. Very mild na rrowing of the central spinal canal is present. No significant neural foraminal stenosis. L4-5: There is a mild diffuse disc bulge. There are hypertrophic changes of the facets and ligamentu m flavum. There is mild narrowing of the central spinal canal. No significant neural foraminal sten osis. L5-S1: No focal disc herniation. There are degenerative changes of the facets. No central spinal ca nal stenosis. No neural foraminal stenosis. Soft tissues: The visualized SI joints and sacrum are well maintained. The paraspinal soft tissues ar e unremarkable. IMPRESSION: Mild degenerative changes are seen in the lumbar spine. The findings do result in mild narrowing of the central spinal canal. The findings are most marked at L4-L5. DATA REPOSITORY:
== END 2021-04-02 01:34 ==
PROVIDERS: PCP Family Medicine; Visit Provider Family Medicine
DX: M54.59 Other low back pain (principal); M51.37 Other intervertebral disc degeneration, lumbosacral region; M47.817 Spondylosis without myelopathy or radiculopathy, lumbosacral region
CPT/HCPCS: 72148

== ENCOUNTER 2021-06-20 01:45 | Outpatient (CLI) | payer MEDICAID, SELFPAY ==
[2021-06-20 12:23] VITALS: BP 142/86; PULSE 75; RESP 18; TEMP 36.8; O2SAT 96
[2021-06-20] MEDS: Normal Saline 250 ML 30 ML IV (12:42)
[2021-06-20] MEDS: Normal Saline Flush 10 ML SYR IVP (12:42)
[2021-06-20 12:58] VITALS: BP 141/73; PULSE 72; RESP 16; TEMP 36.6; O2SAT 94
[2021-06-20 14:32] VITALS: BP 126/85; PULSE 71; RESP 20; TEMP 36.7; O2SAT 95
== END 2021-06-20 14:37 ==
LOC: INF 01:45
PROVIDERS: PCP Family Medicine; Visit Provider Family Medicine
DX: U07.1 COVID-19 (principal)
CPT/HCPCS: 96365; Q0047

== ENCOUNTER 2021-09-02 16:20 | Outpatient (REF) | payer MEDICAID, SELFPAY ==
[2021-09-02 19:45] LABS: HCT 47.2 % (36.0-46.0); HGB 15.1 g/dL (11.2-15.7); MCH 30.1 pg (27.0-33.0); MCV 94.2 fL (80-95); MPV 11.8 fL (8.0-11.0); Platelet Count 334 10^3/uL (130-400); RBC 5.01 10^6/uL (3.93-5.22); RDW 12.4 % (11.7-14.6); RDW-SD 43.3 fL; WBC 9.27 10^3/uL (4.4-10.8)
[2021-09-02 20:10] LABS: ESR 22 mm/hr (0-30)
[2021-09-02 20:23] LABS: ALT 20 U/L (14-59); AST 19 U/L (15-37); Albumin 4.1 g/dL (3.4-5.0); Alkaline Phosphatase 72 U/L (46-116); Anion Gap 7.4 mmol/L (3-11); BUN 13 mg/dL (7-18); Bilirubin, Total 0.4 mg/dL (0.2-1.0); C-Reactive Protein 0.16 mg/dL (0.0-0.3); CO2 30.6 mmol/L (21.0-32.0); Chloride 103 mmol/L (98-107); Estimated GFR 56.18 (mL/min/1.73m2); Ferritin 112 ng/mL (8-252); Glucose 101 mg/dL (74-106); Potassium 5.2 mmol/L (3.5-5.1); Sodium 141 mmol/L (136-145); TSH (W/Ref FT4) 1.85 uIU/mL (0.36-3.74); Total Protein 7.3 g/dL (6.4-8.2); Vitamin B12 335 pg/mL (193-986)
[2021-09-02 20:28] LABS: Calcium 9.6 mg/dL (8.5-10.1); Magnesium 2.1 mg/dL (1.8-2.4)
== END 2021-09-02 16:21 | disposition home or self-care (01) ==
LOC: NCHCN 16:20
PROVIDERS: PCP Family Medicine; Visit Provider Family Medicine
DX: J44.9 Chronic obstructive pulmonary disease, unspecified (principal); M02.9 Reactive arthropathy, unspecified; R61 Generalized hyperhidrosis; R51.9 Headache, unspecified; G47.30 Sleep apnea, unspecified; R53.83 Other fatigue; R20.2 Paresthesia of skin
CPT/HCPCS: 80053; 85027; 85652; 82607; 82728; 83735; 84443; 86140

== ENCOUNTER 2022-03-24 03:06 | Outpatient (CLI) | payer OTHER, SELFPAY | END 2022-03-24 03:07 | disposition home or self-care (01) | LOC: RT 03:07 | PROVIDERS: PCP Family Medicine; Visit Provider Pediatrics Pediatric Rheumatology | DX: J44.9 Chronic obstructive pulmonary disease, unspecified (principal); Z02.71 Encounter for disability determination | CPT/HCPCS: 94618 ==

== ENCOUNTER 2022-05-15 18:09 | Inpatient (IN) | payer MEDICAID, SELFPAY ==
[2022-05-15] VITALS (28 sets, daily range): BP systolic 112–146; BP diastolic 54–98; PULSE 72–125; RESP 4–39; TEMP 36.6–37; O2SAT 34–93
--- NOTE | 2022-05-15 18:15 | RT.EKG_ITS ---
APPROVED REPORT Exam: Resting ECG Reason for Exam: dyspnea Patient Location: E HR:83 bpm ECG Measurements Heart Rate 83 AXIS MT 159 P 49 QRSd 91 QRS 61 QT 382 T 59 QTc 448 Conclusion Sinus rhythm...normal P axis, V-rate 60- 99 Normal [place] Normal Electrocardiogram
--- NOTE | 2022-05-15 18:30 | DI.RAD_ITS ---
Exam(s) XR PORTABLE CHEST AP EXAM: XR PORTABLE CHEST AP CLINICAL HISTORY: SOB, Hx COPD. TECHNIQUE: 2D digital imaging was performed. COMPARISON: CR CHEST 2 VIEWS PA,LAT from 10/15/2014 FINDINGS: LUNGS: Clear. No pleural abnormality seen. HEART: Normal. MEDIASTINUM: Normal. OTHER FINDINGS: None. IMPRESSION: No acute pulmonary findings. DATA REPOSITORY: RADIATION DOSE DELIVERED: Total DLP
--- NOTE | 2022-05-15 18:54 | ED.GENADUL_ITS ---
Discharge Plan Disposition Patient Disposition: Admit to [facility] Condition: Fair Discharge Details Clinical Impression: Acute hyponatremia, COPD exacerbation Admit Date/Time: 05/15/22 21:02 Admit Provider: Laurence Puga Attending Provider: Laurence Puga Primary Care Provider: Soraida Sims V ED Provider: Ale Yu Discharge Data Discharge Date/Time-TO BE ENTERED AT DEPARTURE: 05/15/22 22:25 Medical Decision Making 61-year-old female with past medical history of COPD, hyperlipidemia, GERD, tobacco use, irritable bowel syndrome, presents to the ER with COPD exacerbation, shortness of breath and wheezing. Family reports that she has been sick for the last 2 weeks with fever and cough negative home COVID test. Worse the last few days. She does have scattered wheezes bilaterally, she is diaphoretic, she is tripoding has increased work of breathing and tachypnea. She last did a nebulizer treatment at approximately 1 PM. EKG was reviewed by Dr. Blanchard ER attending, normal sinus rhythm no ST elevation or depression noted. Work-up ordered including serial troponins, proBNP due to shortness of breath and wheezing, chest x-ray and fluvid swab, Differential diagnosis includes but not limited to NSTEMI, COPD exacerbation, pneumonia, flu, COVID 1930: Patient has had a DuoNeb, Solu-Medrol 125, O2 sat 88%, instructed to staff respiratory therapist to place patient on 2 L nasal cannula CBC shows no leukocytosis, CMP shows sodium of 116 which patient does not have a history of this, glucose 110, initial troponin less than 50 which is within normal limits, proBNP is 49, VBG is pending and COVID flu RSV pending. On patient reevaluation she is sleeping, O2 sat is 90 to 93% on 3 L, decreased oxygen to 2 L nasal cannula. I did discuss with her plan for admission she verbalized understanding is in agreement with plan. Discussed with family her low sodium as well family reports that she does drink a lot of water. 2055: Spoke with Dr. Puga regarding patient case in detail she agrees to admit patient for hyponatremia and COPD exacerbation. This text was generated using [employer] system, please disregard any oddities of phrase or misspellings. Medical Records Medical records reviewed: Yes I reviewed the patient's medical records. Lab Data Lab results reviewed: Yes I reviewed the patient's lab results. Labs: 05/15/22 19:55 Urine - Reflex from Ua Urine Culture - Pending Laboratory Tests Range/Units 05/15/22 05/15/22 05/15/22 18:40 18:40 19:00 WBC (4.4-10.8) 10^3/uL 8.64 RBC (3.93-5.22) 10^6/uL 4.51 Hgb (11.2-15.7) g/dL 13.6 Hct (36.0-46.0) % 41.4 MCV (80-95) fL 92 MCH (27.0-33.0) pg 30.2 MCHC (32.0-36.0) % 32.9 RDW (11.7-14.6) % 12.7 Plt Count (130-400) 10^3/uL 399 MPV (8.0-11.0) fL 10.5 Immature Gran % 0.6 Neutrophils % 64.3 Lymphocytes % 22.2 Monocytes % 10.1 Eosinophils % 2.5 Basophils % 0.3 Nucleated RBC % (0.0-0.3) % 0.0 Absolute Neutrophils (1.2-6.7) 10^3/uL 5.55 Absolute Lymphocytes (1.2-3.4) 10^3/uL 1.92 Absolute Monocytes (0.1-0.8) 10^3/uL 0.87 H Absolute Eosinophils (0.0-0.7) 10^3/uL 0.22 Absolute Basophils (0.0-0.2) 10^3/uL 0.03 VBG pH VBG pCO2 VBG pO2 VBG HCO3 VBG Total CO2 VBG O2 Saturation VBG Base Excess Sodium (136-145) mmol/L 116 L* Potassium (3.5-5.1) mmol/L 3.8 Chloride (98-107) mmol/L 96 L Carbon Dioxide (21.0-32.0) mmol/L 29.8 Anion Gap (3-11) mmol/L -9.8 L BUN (7-18) mg/dL 9 Creatinine (0.55-1.02) mg/dL 1.0 Est GFR (CKD-EPI 2020) (mL/min/1.73m2) 63.30 Glucose (74-106) mg/dL 110 H Calcium (8.5-10.1) mg/dL 9.3 Magnesium (1.8-2.4) mg/dL 2.2 Total Bilirubin (0.2-1.0) mg/dL 0.4 AST (15-37) U/L 22 ALT (14-59) U/L 22 Alkaline Phosphatase (46-116) U/L 71 Troponin I (<or=60) ng/L < 50 NT-Pro-B Natriuret Pep (<300) pg/mL 49 Total Protein (6.4-8.2) g/dL 8.0 Albumin (3.4-5.0) g/dL 3.6 Urine Color (Yellow) Urine Clarity (Clear) Urine pH (5-8) Ur Specific [place] (1.005-1.025) Urine Protein (Negative) mg/dL Urine Ketones (Negative) mg/dL Urine Blood (Negative) Urine Nitrite (Negative) Urine Bilirubin (Negative) Urine Urobilinogen (Up TO 0.2) EU/dL Ur Leukocyte Esterase (Negative) Urine RBC (0-2) HPF Urine WBC (0-5) HPF Ur Epithelial Cells (Negative) HPF Urine Crystals (Negative) HPF Urine Bacteria (Negative) HPF Urine Casts (Negative) LPF Urine Mucus (Negative) Ur Culture Indicated? Urine Glucose (Negative) mg/dL COVID-19 Source Nasopharynx SARS-CoV-2 (PCR) (Negative) Negative Influenza Type A (PCR) (Negative) Negative Influenza Type B (PCR) (Negative) Negative RSV (PCR) (Negative) Negative Range/Units 05/15/22 05/15/22 05/15/22 19:44 19:55 20:20 WBC (4.4-10.8) 10^3/uL RBC (3.93-5.22) 10^6/uL Hgb (11.2-15.7) g/dL Hct (36.0-46.0) % MCV (80-95) fL MCH (27.0-33.0) pg MCHC (32.0-36.0) % RDW (11.7-14.6) % Plt Count (130-400) 10^3/uL MPV (8.0-11.0) fL Immature Gran % Neutrophils % Lymphocytes % Monocytes % Eosinophils % Basophils % Nucleated RBC % (0.0-0.3) % Absolute Neutrophils (1.2-6.7) 10^3/uL Absolute Lymphocytes (1.2-3.4) 10^3/uL Absolute Monocytes (0.1-0.8) 10^3/uL Absolute Eosinophils (0.0-0.7) 10^3/uL Absolute Basophils (0.0-0.2) 10^3/uL VBG pH Cancelled VBG pCO2 Cancelled VBG pO2 Cancelled VBG HCO3 Cancelled VBG Total CO2 Cancelled VBG O2 Saturation Cancelled VBG Base Excess Cancelled Sodium (136-145) mmol/L Potassium (3.5-5.1) mmol/L Chloride (98-107) mmol/L Carbon Dioxide (21.0-32.0) mmol/L Anion Gap (3-11) mmol/L BUN (7-18) mg/dL Creatinine (0.55-1.02) mg/dL Est GFR (CKD-EPI 2020) (mL/min/1.73m2) Glucose (74-106) mg/dL Calcium (8.5-10.1) mg/dL Magnesium (1.8-2.4) mg/dL Total Bilirubin (0.2-1.0) mg/dL AST (15-37) U/L ALT (14-59) U/L Alkaline Phosphatase (46-116) U/L Troponin I (<or=60) ng/L < 50 NT-Pro-B Natriuret Pep (<300) pg/mL Total Protein (6.4-8.2) g/dL Albumin (3.4-5.0) g/dL Urine Color (Yellow) Yellow Urine Clarity (Clear) Clear Urine pH (5-8) 6.0 Ur Specific [place] (1.005-1.025) 1.010 Urine Protein (Negative) mg/dL Negative Urine Ketones (Negative) mg/dL Negative Urine Blood (Negative) Trace-lysed H Urine Nitrite (Negative) Negative Urine Bilirubin (Negative) Negative Urine Urobilinogen (Up TO 0.2) EU/dL 0.2 Ur Leukocyte Esterase (Negative) Small H Urine RBC (0-2) HPF 0-2 Urine WBC (0-5) HPF 5-10 Ur Epithelial Cells (Negative) HPF Few Urine Crystals (Negative) HPF Negative Urine Bacteria (Negative) HPF Few Urine Casts (Negative) LPF Negative Urine Mucus (Negative) Negative Ur Culture Indicated? Yes Urine Glucose (Negative) mg/dL Negative COVID-19 Source SARS-CoV-2 (PCR) (Negative) Influenza Type A (PCR) (Negative) Influenza Type B (PCR) (Negative) RSV (PCR) (Negative) Range/Units 05/15/22 20:20 WBC (4.4-10.8) 10^3/uL RBC (3.93-5.22) 10^6/uL Hgb (11.2-15.7) g/dL Hct (36.0-46.0) % MCV (80-95) fL MCH (27.0-33.0) pg MCHC (32.0-36.0) % RDW (11.7-14.6) % Plt Count (130-400) 10^3/uL MPV (8.0-11.0) fL Immature Gran % Neutrophils % Lymphocytes % Monocytes % Eosinophils % Basophils % Nucleated RBC % (0.0-0.3) % Absolute Neutrophils (1.2-6.7) 10^3/uL Absolute Lymphocytes (1.2-3.4) 10^3/uL Absolute Monocytes (0.1-0.8) 10^3/uL Absolute Eosinophils (0.0-0.7) 10^3/uL Absolute Basophils (0.0-0.2) 10^3/uL VBG pH 7.37 VBG pCO2 49 VBG pO2 54 VBG HCO3 28 VBG Total CO2 26 VBG O2 Saturation 88 VBG Base Excess 3 Sodium (136-145) mmol/L Potassium (3.5-5.1) mmol/L Chloride (98-107) mmol/L Carbon Dioxide (21.0-32.0) mmol/L Anion Gap (3-11) mmol/L BUN (7-18) mg/dL Creatinine (0.55-1.02) mg/dL Est GFR (CKD-EPI 2020) (mL/min/1.73m2) Glucose (74-106) mg/dL Calcium (8.5-10.1) mg/dL Magnesium (1.8-2.4) mg/dL Total Bilirubin (0.2-1.0) mg/dL AST (15-37) U/L ALT (14-59) U/L Alkaline Phosphatase (46-116) U/L Troponin I (<or=60) ng/L NT-Pro-B Natriuret Pep (<300) pg/mL Total Protein (6.4-8.2) g/dL Albumin (3.4-5.0) g/dL Urine Color (Yellow) Urine Clarity (Clear) Urine pH (5-8) Ur Specific [place] (1.005-1.025) Urine Protein (Negative) mg/dL Urine Ketones (Negative) mg/dL Urine Blood (Negative) Urine Nitrite (Negative) Urine Bilirubin (Negative) Urine Urobilinogen (Up TO 0.2) EU/dL Ur Leukocyte Esterase (Negative) Urine RBC (0-2) HPF Urine WBC (0-5) HPF Ur Epithelial Cells (Negative) HPF Urine Crystals (Negative) HPF Urine Bacteria (Negative) HPF Urine Casts (Negative) LPF Urine Mucus (Negative) Ur Culture Indicated? Urine Glucose (Negative) mg/dL COVID-19 Source SARS-CoV-2 (PCR) (Negative) Influenza Type A (PCR) (Negative) Influenza Type B (PCR) (Negative) RSV (PCR) (Negative) Sign Out No HPI General Mode of arrival: wheelchair . Date/Time Provider Initiated Documentation: 05/15/22 18:44 . Limitations to Documentation: no limitations . Information obtained by: patient, family, RN notes reviewed and old records reviewed . HPI Narrative: 61-year-old female with past medical history of COPD, hyperlipidemia, GERD, tobacco use, irritable bowel syndrome, presents to the ER with COPD exacerbation, shortness of breath and wheezing. Family reports that she has been sick for the last 2 weeks with fever and cough negative home COVID test. Worse the last few days. She does have scattered wheezes bilaterally, she is diaphoretic, she is tripoding has increased work of breathing and tachypnea. She last did a nebulizer treatment at approximately 1 PM. She does also take fluticasone, she denies any other complaints or associated symptoms at this time. She is having a hard time speaking in full sentences. O2 sat is 95% on room air. Related Data Home Medications Medication Instructions Recorded Confirmed tiotropium bromide 18 mcg capsule 1 spray inhalation PRN PRN 04/19/15 05/15/22 with inhalation device (Spiriva with HandiHaler) ibuprofen 200 mg tablet (Ibuprofen 200 mg PO QID PRN PRN 09/18/15 05/15/22 IB) albuterol sulfate 2.5 mg/3 mL 2.5 mg inhalation Q4H PRN 06/26/19 05/15/22 (0.083 %) solution for nebulization albuterol sulfate 90 mcg/actuation 2 puff inhalation Q4-5H PRN 06/26/19 05/15/22 aerosol inhaler (ProAir HFA) bupropion HCl 150 mg 24 hr tablet, 150 mg PO QAM 06/26/19 05/15/22 extended release (Wellbutrin XL) gabapentin 100 mg capsule 100 mg PO DAILY 06/26/19 05/15/22 pramipexole 0.125 mg tablet 0.125 mg PO DAILY 06/26/19 05/15/22 (Mirapex) fluticasone propionate 50 1 spray intranasal DAILY PRN 06/26/20 05/15/22 mcg/actuation nasal spray,suspension (Flonase Allergy Relief) oxycodone 10 mg tablet 10 mg PO QID PRN 08/28/20 05/15/22 sucralfate 1 gram tablet (Carafate) 1 g PO QAS #120 tabs 09/27/20 05/15/22 omeprazole 40 mg capsule,delayed 40 mg PO DAILY #60 caps 11/27/20 05/15/22 release aspirin 81 mg tablet,delayed 81 mg PO DAILY 05/12/22 05/15/22 release docusate sodium 100 mg capsule 100 mg PO PRN PRN 05/12/22 05/15/22 (Colace) fluticasone 250 mcg-salmeterol 50 1 inh inhalation BID 05/12/22 05/15/22 mcg/dose blistr powdr for inhalation (Advair Diskus) fluticasone propionate 50 1 spray intranasal DAILY 05/12/22 05/15/22 mcg/actuation nasal spray,suspension (Flonase Allergy Relief) lactobacillus combination no.9 4 4,000 mmu cells PO DAILY 05/12/22 05/15/22 billion cell capsule (Adult 50 Plus Probiotic) umeclidinium 62.5 mcg/actuation 1 inh inhalation DAILY 05/12/22 05/15/22 blister powder for inhalation (Incruse Ellipta) Previous Rx's Medication Instructions Recorded sucralfate 1 gram tablet (Carafate) 1 g PO QACHS #120 tabs 09/27/20 omeprazole 40 mg capsule,delayed 40 mg PO DAILY #60 caps 11/27/20 release Allergies Allergy/AdvReac Type Severity Reaction Status Date / Time cephalexin [Cephalexin] Allergy Intermediate Skin Rash Unverified 05/15/22 18:28 Penicillins Allergy Intermediate rash with Unverified 05/15/22 18:28 all cillins ampicillin Allergy Mild Skin Rash Unverified 05/15/22 18:28 cefprozil [From Cefzil] Allergy Mild Skin Rash Unverified 05/15/22 18:28 Cephalosporins Allergy Mild Hives Unverified 05/15/22 18:28 clindamycin Allergy Mild Skin Rash Unverified 05/15/22 18:28 doxycycline Allergy Mild Skin Rash Unverified 05/15/22 18:28 varenicline [From Chantix] Allergy Mild Unverified 05/15/22 18:28 amoxicillin Allergy Unknown Hives Unverified 05/15/22 18:28 acetaminophen Allergy Hives Verified 05/15/22 18:28 [From Mapap (acetaminophen)] clarithromycin [From Biaxin] Allergy rash/hives Unverified 05/15/22 18:28 duloxetine [From Cymbalta] AdvReac Intermediate made me Unverified 05/15/22 18:28 feel very weird linaclotide [From Linzess] AdvReac Mild Diarrhea Unverified 05/15/22 18:28 nicotine [From Nicorette] AdvReac Mild Nauseaous Unverified 05/15/22 18:28 adhesive tape AdvReac Unknown Skin Rash Unverified 05/15/22 18:28 adhesive AdvReac Topical Unverified 05/15/22 18:28 Irritation banana AdvReac abd Unverified 05/15/22 18:28 bloating codeine AdvReac sick Unverified 05/15/22 18:28 hydrocodone [From Vicodin] AdvReac cold Verified 05/15/22 18:28 sweats, vomiting black hair dye Allergy Intermediate Hives Uncoded 05/15/22 18:28 eggs Allergy bloating Uncoded 05/15/22 18:28 General Stated Complaint: SOB MIGUEL: 3 Review of Systems All systems reviewed & are unremarkable except as noted in HPI and below Constitutional Constitutional: Reports excessive sweating and Reports fever(s) (Subjective) Cardiovascular Cardiovascular: Reports dyspnea Respiratory Respiratory: Reports as per HPI, Reports cough, Reports dyspnea and Reports wheezing Gastrointestinal Gastrointestinal: Denies diarrhea, Denies nausea and Denies vomiting Endocrine Endocrine: Reports excessive sweating Allergic/Immunologic Allergic/Immunologic: Reports wheezing PFSH All Active Problems (Updated 05/15/22 @ 23:32 by Laurence Puga MD) Discharge planning issues (Acute) DVT prophylaxis (Acute) Acute hyponatremia (Acute) COPD exacerbation (Acute) Duodenitis (Acute) Gastritis (Acute) GERD (gastroesophageal reflux disease) (Chronic) Cervicalgia (Acute) Tendonitis of long head of biceps brachii of right shoulder (Acute) Degenerative arthritis of cervical spine (Acute) Arthritis of left glenohumeral joint (Acute) Seasonal allergic reaction (Acute) Constipation, chronic (Acute) Cervical spinal stenosis (Acute) Tobacco use (Acute) Hyperlipidemia (Acute) COPD (chronic obstructive pulmonary disease) (Chronic) Minimally displaced zone I fracture of sacrum, sequela (Acute) HPV (human papilloma virus) infection (Acute) IBS (irritable bowel syndrome) (Chronic) Skin lesion (Acute) Edentulous (Acute) Reactive inflammatory arthritis (Acute) Low back pain (Acute) Lumbar radiculopathy (Acute) Abdominal pain (Acute) Abdominal bloating (Acute) Restless leg syndrome (Acute) Blood in stool (Acute) Hx of allergic reaction (Acute) Closed fracture of right distal fibula (Acute) Shoulder pain (Acute) Trigger finger of all digits of both hands (Acute) Arthritis of right glenohumeral joint (Acute) No-show for appointment (Acute) Spondylosis, cervical (Acute) Carpal tunnel syndrome, bilateral (Acute) Shoulder pain, bilateral (Acute) Effusion of left knee (Acute) Situational depression (Chronic) Myalgia (Acute) Generalized osteoarthritis of multiple sites (Acute) Patellar tendinitis (Acute) Sinusitis (Acute) Mild memory disturbance (Acute) Rash, skin (Acute) Visit for screening mammogram (Acute) Preventative health care (Acute) Colonoscopy planned (Acute) Frequency of urination (Acute) Eye irritation (Acute) Dysuria (Acute) Ankle joint disorder (Acute) Hypoglycemia (Acute) Cough (Acute) Sinusitis, acute (Acute) Medical History ADHD AGATHA III (cervical intraepithelial neoplasia III) COVID Diaphoresis Dyspnea Exposure to COVID-19 virus Grief reaction Hemangioma of liver Hematemesis History of paresthesia HPV (human papilloma virus) anogenital infection Liver lesion Nocturnal hypoxia Pneumonia Sleep apnea Supraclavicular lymphadenopathy Tendonitis Surgical History Arthroscopy, Shoulder History of colonoscopy (~07/05/18) History of esophagogastroduodenoscopy (EGD) (~09/2020) S/P colonoscopy Trigger Finger release several Family History Mother Personal history of malignant neoplasm uterine, mets to colon Social History Smoking/Tobacco Use Status: Current every day Tobacco Type: cigarettes Smoking risk assessment performed?: Yes Alcohol Intake: never Drug use: Never Substance use type: does not use Current gender identity: female Do you feel safe at home: Yes Do you feel safe in your relationship?: Yes Exam Narrative Exam Narrative: Constitutional: Alert and oriented x3. Appears stated age. Normal body habitus. Diaphoretic, anxious. Tachypneic, tripoding. Head: Normocephalic, no trauma. Eyes: Pupils PERRL, Red reflex noted, EOM's intact. Eyelids symmetrical without lesions, discharge, or swelling. ENT: Bilateral TM's WNL, External ear normal to inspection, no mastoid TTP, swelling, or erythema, Chest: RRR, Normal S1, S2, distal pulses intact. No pitting edema noted to lower extremities. Resp: Diminished bilaterally, scattered wheezes throughout, unable to speak in full sentences. Abdomen: Soft, non-distended, Normoactive bowel sounds all 4 quads. Musculoskeletal: Unable to assess gait, 5/5 strength to all four extremities. Skin: No suspicious rashes or lesions. Capillary refill less than 2 sec. patient is diaphoretic. Neurologic: Cranial nerves II-XII intact. Alert and oriented x 3. Motor: No deficits noted. Sensory: Intact bilaterally all 4 extremities. Reflexes: DTR's intact bilaterally.. Hematologic/Lymphatic: No ecchymosis, no lymphadenopathy. Course Vital Signs Vital signs: Vital Signs Temperature 36.6 C 05/15/22 18:13 Pulse 89 05/15/22 18:13 Respiratory Rate 20 05/15/22 18:13 Blood Pressure 146/85 H 05/15/22 18:13 Pulse Oximetry 93 05/15/22 18:13 Temperature 36.6 C 05/15/22 18:13 Temperature Source Temporal Artery Scan 05/15/22 18:13 Pulse 89 05/15/22 18:13 Respiratory Rate 22 05/15/22 18:23 Respiratory Effort 05/15/22 18:23 Blood Pressure 146/85 H 05/15/22 18:13 Pulse Oximetry 93 05/15/22 18:13 Oxygen Delivery Method Room Air 05/15/22 18:13 Oxygen Flow Rate 0 05/15/22 18:13 Pain Level 0 05/15/22 18:13
[2022-05-15] MEDS: methylPREDNISolone SUCC 125 MG VIAL IVP (18:55)
[2022-05-15] MEDS: Albuterol/Ipratropium 3 ML UPD VIAL UPD ×3 (18:56→23:36)
[2022-05-15 19:14] LABS: Abs Immature Grans 0.05 10^3/uL (0.0-0.06); Absolute Basophil Count 0.03 10^3/uL (0.0-0.2); Absolute Eosinophil Count 0.22 10^3/uL (0.0-0.7); Absolute Lymphocyte Count 1.92 10^3/uL (1.2-3.4); Absolute Monocyte Count 0.87 10^3/uL (0.1-0.8); Absolute Neutrophil Count 5.55 10^3/uL (1.2-6.7); Basophils % 0.3; Eosinophils % 2.5; HCT 41.4 % (36.0-46.0); HGB 13.6 g/dL (11.2-15.7); Immature Grans % 0.6; Lymphocytes % 22.2; MCH 30.2 pg (27.0-33.0); MCHC 32.9 % (32.0-36.0); MCV 92 fL (80-95); MPV 10.5 fL (8.0-11.0); Monocytes % 10.1; Neutrophils % 64.3; Platelet Count 399 10^3/uL (130-400); RBC 4.51 10^6/uL (3.93-5.22); RDW 12.7 % (11.7-14.6); RDW-SD 42.5 fL; WBC 8.64 10^3/uL (4.4-10.8)
--- NOTE | 2022-05-15 19:32 | DI.VRAD_ITS ---
PROCEDURE INFORMATION: Exam: XR Chest Exam date and time: 05/15/2022 6:57 PM Age: 61 years old Clinical indication: Shortness of breath; Additional info: SOB, HX copd TECHNIQUE: Imaging protocol: Radiologic exam of the chest. Views: 1 view. COMPARISON: CT CHEST LUNG CANCER SCREEN 06/03/2020 8:09 AM FINDINGS: Lungs: Moderate hyperexpansion and hyperlucency with diaphragmatic flattening suggesting COPD. Pulmonary vasculature grossly normal. No gross pulmonary infiltrates or edema pattern. Pleural spaces: No pleural effusion. No pneumothorax. Heart/Mediastinum: Heart size normal. No tracheal/mediastinal shift. Bones/joints: No acute osseous abnormalities are identified. Chronic resorption distal right clavicle may be postsurgical or chronic posttraumatic in nature. Bilateral inferior glenohumeral spurring and ossifications, likely osteoarthritic in nature. IMPRESSION: 1. No acute thoracic process. 2. Evidence of COPD. Dictated and Authenticated by: Rivas Michel MD. Ordering:ABEL Aguilera MD
[2022-05-15 19:38] LABS: ALT 22 U/L (14-59); AST 22 U/L (15-37); Albumin 3.6 g/dL (3.4-5.0); Alkaline Phosphatase 71 U/L (46-116); Anion Gap -9.8 mmol/L (3-11); BUN 9 mg/dL (7-18); Bilirubin, Total 0.4 mg/dL (0.2-1.0); CO2 29.8 mmol/L (21.0-32.0); Calcium 9.3 mg/dL (8.5-10.1); Chloride 96 mmol/L (98-107); Glucose 110 mg/dL (74-106); Magnesium 2.2 mg/dL (1.8-2.4); NT-proBNP 49 pg/mL (<300); Potassium 3.8 mmol/L (3.5-5.1); Troponin I < 50 ng/L (<or=60)
[2022-05-15 19:39] LABS: Sodium 116 mmol/L (136-145)
[2022-05-15 19:44] LABS: COVID-19 PCR Negative (Negative); Influenza A PCR Negative (Negative); Influenza B PCR Negative (Negative); RSV PCR Negative (Negative)
[2022-05-15 19:46] LABS: Source Nasopharynx
[2022-05-15 20:02] LABS: Bilirubin Negative (Negative); Blood Trace-lysed (Negative); Clarity Clear (Clear); Glucose Negative (Negative); Ketones Negative (Negative); Leukocyte Esterase Small (Negative); Nitrite Negative (Negative); Urobilinogen 0.2 EU/dL (Up TO 0.2)
[2022-05-15 20:11] LABS: Bacteria Few HPF (Negative); C & S Indicated? Yes; Casts Negative LPF (Negative); Crystals Negative HPF (Negative); Epithelial Cells Few HPF (Negative); Mucus Negative (Negative); RBC 0-2 HPF (0-2)
[2022-05-15] MEDS: Ibuprofen 600 MG TAB PO (20:25)
[2022-05-15] MEDS: LORazepam 2 MG/ML VIAL 0.5 MG IVP (20:26)
[2022-05-15 20:27] LABS: BE (Venous) 3 mmol/L (-2-3); HCO3 (Venous) 28 mmol/L (23-28); O2 Sat (Venous) 88 %; TCO2 (Venous) 26 mmol/L (24-29); pCO2 (Venous) 49 mmHg (41-51); pH (Venous) 7.37 (7.31-7.41); pO2 (Venous) 54 mmHg
[2022-05-15] MEDS: Normal Saline 1,000 ML 1000 ML IV (20:27)
[2022-05-15 20:50] LABS: Troponin I < 50 ng/L (<or=60)
[2022-05-15 20:51] LABS: PTT Activated 26.3 sec (21.0-27.5); Prothrombin Time 10.2 sec (9.3-11.0)
[2022-05-15 21:06] LABS: D-Dimer 991 ng/mlFEU (<500)
[2022-05-15 21:29] LABS: Procalcitonin < 0.1 ng/mL
[2022-05-15 22:22] LABS: Lab Add On Test DONE
[2022-05-15 22:26] LABS: Lab Add On Test DONE
[2022-05-15 22:44] LABS: FREE T4 1.05 ng/dL (0.76-1.46); TSH 1.32 uIU/mL (0.36-3.74)
--- NOTE | 2022-05-15 22:54 | W.PM.HP.N ---
Date of service: 05/15/22 Time of Service: 22:54 Assessment and Plan Assessment and plan (1) COPD exacerbation: Status: Acute Assessment and plan: With hypoxia. Treat with scheduled and prn bronchdilators, steroids. Symbicort (in place of home advair). No role for antibiotics given a negative procalcitonin and no evidence of infiltrate on CXR. However, will obtain sputum sample. Will also monitor for recurrence of hemoptysis. Encourage pulmonary toilet. Wean O2 as tolerated. 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 Will trial IVF and trend sodiums Q6Hrs. Mointor in the ICU. If not improved by midnight draw, would consider hypertonic saline with DDAVP. Will institute a 1500 cc free water restriction. (3) GERD (gastroesophageal reflux disease): Status: Chronic Assessment and plan: Continue PPI. Patient states she does not take carafate. (4) Situational depression: Status: Chronic Assessment and plan: Continue wellbutrin (5) DVT prophylaxis: Status: Acute Assessment and plan: SC heparin (6) Discharge planning issues: Status: Acute Assessment and plan: Full code Admit to the ICU Total Critical Care Time 45 minutes History of Present Illness History of Present Illness Chief Complaint: shortness of breath Narrative: Ms Lowe is a 61 year old female with PMHx of non-oxygen dependent COPD (with baseline O2 sats going down as low as 87% on RA at home, as well as h/o GERD, depression, ongoing tobacco abuse, who presented to [facility] ED today c/o shortness of breath and upper respiratory symptoms x 1-2 weeks, but especially so over the last 3 days. Her symptoms include fevers (up to 100.7 at home), chills, cough productive of yellow sputum which is blood tinged. On presentation to the ED, she was desaturating to 88% on RA and required 3L of O2 in the ED to saturate in low 90s. She tested negative for COVID-19, flu, and RSV. Her CXR did not reveal any infiltrates, and her procalcitonin was negative. She was initiated on bronchodilators and steroids and was improving. However, her labs came back showing a sodium of 116. The patient did report a headache. Per daughter, the patient had been drinking a lot of water. ER initiated normal saline. Hospitalist admission was requested. Review of Systems All systems reviewed & are unremarkable except as noted in HPI and below PFSH All Active Problems (Updated 05/15/22 @ 23:32 by Laurence Puga MD) Discharge planning issues (Acute) DVT prophylaxis (Acute) Acute hyponatremia (Acute) COPD exacerbation (Acute) Duodenitis (Acute) Gastritis (Acute) GERD (gastroesophageal reflux disease) (Chronic) Cervicalgia (Acute) Tendonitis of long head of biceps brachii of right shoulder (Acute) Degenerative arthritis of cervical spine (Acute) Arthritis of left glenohumeral joint (Acute) Seasonal allergic reaction (Acute) Constipation, chronic (Acute) Cervical spinal stenosis (Acute) Tobacco use (Acute) Hyperlipidemia (Acute) COPD (chronic obstructive pulmonary disease) (Chronic) Minimally displaced zone I fracture of sacrum, sequela (Acute) HPV (human papilloma virus) infection (Acute) IBS (irritable bowel syndrome) (Chronic) Skin lesion (Acute) Edentulous (Acute) Reactive inflammatory arthritis (Acute) Low back pain (Acute) Lumbar radiculopathy (Acute) Abdominal pain (Acute) Abdominal bloating (Acute) Restless leg syndrome (Acute) Blood in stool (Acute) Hx of allergic reaction (Acute) Closed fracture of right distal fibula (Acute) Shoulder pain (Acute) Trigger finger of all digits of both hands (Acute) Arthritis of right glenohumeral joint (Acute) No-show for appointment (Acute) Spondylosis, cervical (Acute) Carpal tunnel syndrome, bilateral (Acute) Shoulder pain, bilateral (Acute) Effusion of left knee (Acute) Situational depression (Chronic) Myalgia (Acute) Generalized osteoarthritis of multiple sites (Acute) Patellar tendinitis (Acute) Sinusitis (Acute) Mild memory disturbance (Acute) Rash, skin (Acute) Visit for screening mammogram (Acute) Preventative health care (Acute) Colonoscopy planned (Acute) Frequency of urination (Acute) Eye irritation (Acute) Dysuria (Acute) Ankle joint disorder (Acute) Hypoglycemia (Acute) Cough (Acute) Sinusitis, acute (Acute) Medical History (Updated 05/15/22 @ 23:32 by Laurence Puga MD) ADHD AGATHA III (cervical intraepithelial neoplasia III) COVID Diaphoresis Dyspnea Exposure to COVID-19 virus Grief reaction Hemangioma of liver Hematemesis History of paresthesia HPV (human papilloma virus) anogenital infection Liver lesion Nocturnal hypoxia Pneumonia Sleep apnea Supraclavicular lymphadenopathy Tendonitis Surgical History (Updated 05/16/22 @ 00:10 by Laurence Puga MD) Arthroscopy, Shoulder History of colonoscopy (~07/05/18) History of esophagogastroduodenoscopy (EGD) (~09/2020) S/P colonoscopy S/P tonsillectomy Trigger Finger release several Family History Mother Personal history of malignant neoplasm uterine, mets to colon Social History Smoking/Tobacco Use Status: Current every day Tobacco Type: cigarettes Smoking risk assessment performed?: Yes Alcohol Intake: never Drug use: Never Substance use type: does not use Current gender identity: female Do you feel safe at home: Yes Do you feel safe in your relationship?: Yes Meds Allergies and Home Medications Allergies Allergy/AdvReac Type Severity Reaction Status Date / Time cephalexin [Cephalexin] Allergy Intermediate Skin Rash Unverified 05/15/22 18:28 Penicillins Allergy Intermediate rash with Unverified 05/15/22 18:28 all cillins ampicillin Allergy Mild Skin Rash Unverified 05/15/22 18:28 cefprozil [From Cefzil] Allergy Mild Skin Rash Unverified 05/15/22 18:28 Cephalosporins Allergy Mild Hives Unverified 05/15/22 18:28 clindamycin Allergy Mild Skin Rash Unverified 05/15/22 18:28 doxycycline Allergy Mild Skin Rash Unverified 05/15/22 18:28 varenicline [From Chantix] Allergy Mild Unverified 05/15/22 18:28 amoxicillin Allergy Unknown Hives Unverified 05/15/22 18:28 acetaminophen Allergy Hives Verified 05/15/22 18:28 [From Mapap (acetaminophen)] clarithromycin [From Biaxin] Allergy rash/hives Unverified 05/15/22 18:28 duloxetine [From Cymbalta] AdvReac Intermediate made me Unverified 05/15/22 18:28 feel very weird linaclotide [From Linzess] AdvReac Mild Diarrhea Unverified 05/15/22 18:28 nicotine [From Nicorette] AdvReac Mild Nauseaous Unverified 05/15/22 18:28 adhesive tape AdvReac Unknown Skin Rash Unverified 05/15/22 18:28 adhesive AdvReac Topical Unverified 05/15/22 18:28 Irritation banana AdvReac abd Unverified 05/15/22 18:28 bloating codeine AdvReac sick Unverified 05/15/22 18:28 hydrocodone [From Vicodin] AdvReac cold Verified 05/15/22 18:28 sweats, vomiting black hair dye Allergy Intermediate Hives Uncoded 05/15/22 18:28 eggs Allergy bloating Uncoded 05/15/22 18:28 Home Medications Medication Instructions Recorded Confirmed Type tiotropium bromide 18 mcg capsule 1 spray inhalation PRN PRN 04/19/15 05/15/22 History with inhalation device (Spiriva with HandiHaler) ibuprofen 200 mg tablet (Ibuprofen 200 mg PO QID PRN PRN 09/18/15 05/15/22 History IB) albuterol sulfate 2.5 mg/3 mL 2.5 mg inhalation Q4H PRN 06/26/19 05/15/22 History (0.083 %) solution for nebulization albuterol sulfate 90 mcg/actuation 2 puff inhalation Q4-5H PRN 06/26/19 05/15/22 History aerosol inhaler (ProAir HFA) bupropion HCl 150 mg 24 hr tablet, 150 mg PO QAM 06/26/19 05/15/22 History extended release (Wellbutrin XL) gabapentin 100 mg capsule 100 mg PO DAILY 06/26/19 05/15/22 History pramipexole 0.125 mg tablet 0.125 mg PO DAILY 06/26/19 05/15/22 History (Mirapex) fluticasone propionate 50 1 spray intranasal DAILY PRN 06/26/20 05/15/22 History mcg/actuation nasal spray,suspension (Flonase Allergy Relief) oxycodone 10 mg tablet 10 mg PO QID PRN 08/28/20 05/15/22 History sucralfate 1 gram tablet (Carafate) 1 g PO QACHS #120 tabs 09/27/20 05/15/22 Rx omeprazole 40 mg capsule,delayed 40 mg PO DAILY #60 caps 11/27/20 05/15/22 Rx release aspirin 81 mg tablet,delayed 81 mg PO DAILY 05/12/22 05/15/22 History release docusate sodium 100 mg capsule 100 mg PO PRN PRN 05/12/22 05/15/22 History (Colace) fluticasone 250 mcg-salmeterol 50 1 inh inhalation BID 05/12/22 05/15/22 History mcg/dose blistr powdr for inhalation (Advair Diskus) fluticasone propionate 50 1 spray intranasal DAILY 05/12/22 05/15/22 History mcg/actuation nasal spray,suspension (Flonase Allergy Relief) lactobacillus combination no.9 4 4,000 mmu cells PO DAILY 05/12/22 05/15/22 History billion cell capsule (Adult 50 Plus Probiotic) umeclidinium 62.5 mcg/actuation 1 inh inhalation DAILY 05/12/22 05/15/22 History blister powder for inhalation (Incruse Ellipta) Exam Narrative Exam Narrative: General: Pleasant anxious middle-aged female who is A&Ox3, coughing (turns cyanotic when she does), able to speak in 3-5 word phrases Neurological: A&Ox3, no focal deficits Psychiatric: Anxious Skin: Visible skin intact HEENT: Atraumatic, normocephalic, EOMI, dry MM, clear oropharynx, no submandibular or cevrical lymphadenopathy, no goiter or JVD Cardiovascular: RRR, n m/r/g Lungs: expiratory wheezing B Gastrointestinal: soft, nontender, nondistended Genitourinary: deferred Extremities: no edema BLEs, 1+ pedal pulses B Results Imaging Additional studies: CXR 05/15/22: 1. No acute thoracic process. 2. Evidence of COPD. EKG: HR 83, NSR, no acute ischemia Labs Result diagrams: 05/15/22 18:40 05/15/22 18:40 Labs: Laboratory Results - last 24 hr 05/15/22 05/15/22 05/15/22 18:40 18:40 18:40 WBC 8.64 RBC 4.51 Hgb 13.6 Hct 41.4 MCV 92 MCH 30.2 MCHC 32.9 RDW 12.7 Plt Count 399 MPV 10.5 Immature Gran % 0.6 Neutrophils % 64.3 Lymphocytes % 22.2 Monocytes % 10.1 Eosinophils % 2.5 Basophils % 0.3 Nucleated RBC % 0.0 Absolute Neutrophils 5.55 Absolute Lymphocytes 1.92 Absolute Monocytes 0.87 H Absolute Eosinophils 0.22 Absolute Basophils 0.03 PT INR APTT D-Dimer VBG pH VBG pCO2 VBG pO2 VBG HCO3 VBG Total CO2 VBG O2 Saturation VBG Base Excess Sodium 116 L* Potassium 3.8 Chloride 96 L Carbon Dioxide 29.8 Anion Gap -9.8 L BUN 9 Creatinine 1.0 Est GFR (CKD-EPI 2020) 63.30 Glucose 110 H Calcium 9.3 Magnesium 2.2 Total Bilirubin 0.4 AST 22 ALT 22 Alkaline Phosphatase 71 Troponin I < 50 NT-Pro-B Natriuret Pep 49 Total Protein 8.0 Albumin 3.6 Procalcitonin TSH Free T4 Urine Color Urine Clarity Urine pH Ur Specific Kevil Urine Protein Urine Ketones Urine Blood Urine Nitrite Urine Bilirubin Urine Urobilinogen Ur Leukocyte Esterase Urine RBC Urine WBC Ur Epithelial Cells Urine Crystals Urine Bacteria Urine Casts Urine Mucus Ur Culture Indicated? Urine Glucose COVID-19 Source SARS-CoV-2 (PCR) Influenza Type A (PCR) Influenza Type B (PCR) RSV (PCR) Add-On Test Request DONE 05/15/22 05/15/22 05/15/22 19:00 19:44 19:55 WBC RBC Hgb Hct MCV MCH MCHC RDW Plt Count MPV Immature Gran % Neutrophils % Lymphocytes % Monocytes % Eosinophils % Basophils % Nucleated RBC % Absolute Neutrophils Absolute Lymphocytes Absolute Monocytes Absolute Eosinophils Absolute Basophils PT INR APTT D-Dimer VBG pH Cancelled VBG pCO2 Cancelled VBG pO2 Cancelled VBG HCO3 Cancelled VBG Total CO2 Cancelled VBG O2 Saturation Cancelled VBG Base Excess Cancelled Sodium Potassium Chloride Carbon Dioxide Anion Gap BUN Creatinine Est GFR (CKD-EPI 2020) Glucose Calcium Magnesium Total Bilirubin AST ALT Alkaline Phosphatase Troponin I NT-Pro-B Natriuret Pep Total Protein Albumin Procalcitonin TSH Free T4 Urine Color Yellow Urine Clarity Clear Urine pH 6.0 Ur Specific Kevil 1.010 Urine Protein Negative Urine Ketones Negative Urine Blood Trace-lysed H Urine Nitrite Negative Urine Bilirubin Negative Urine Urobilinogen 0.2 Ur Leukocyte Esterase Small H Urine RBC 0-2 Urine WBC 5-10 Ur Epithelial Cells Few Urine Crystals Negative Urine Bacteria Few Urine Casts Negative Urine Mucus Negative Ur Culture Indicated? Yes Urine Glucose Negative COVID-19 Source Nasopharynx SARS-CoV-2 (PCR) Negative Influenza Type A (PCR) Negative Influenza Type B (PCR) Negative RSV (PCR) Negative Add-On Test Request 05/15/22 05/15/22 05/15/22 20:20 20:20 20:20 WBC RBC Hgb Hct MCV MCH MCHC RDW Plt Count MPV Immature Gran % Neutrophils % Lymphocytes % Monocytes % Eosinophils % Basophils % Nucleated RBC % Absolute Neutrophils Absolute Lymphocytes Absolute Monocytes Absolute Eosinophils Absolute Basophils PT 10.2 INR 1.0 APTT 26.3 D-Dimer 991 H VBG pH 7.37 VBG pCO2 49 VBG pO2 54 VBG HCO3 28 VBG Total CO2 26 VBG O2 Saturation 88 VBG Base Excess 3 Sodium Potassium Chloride Carbon Dioxide Anion Gap BUN Creatinine Est GFR (CKD-EPI 2020) Glucose Calcium Magnesium Total Bilirubin AST ALT Alkaline Phosphatase Troponin I < 50 NT-Pro-B Natriuret Pep Total Protein Albumin Procalcitonin TSH Free T4 Urine Color Urine Clarity Urine pH Ur Specific Kevil Urine Protein Urine Ketones Urine Blood Urine Nitrite Urine Bilirubin Urine Urobilinogen Ur Leukocyte Esterase Urine RBC Urine WBC Ur Epithelial Cells Urine Crystals Urine Bacteria Urine Casts Urine Mucus Ur Culture Indicated? Urine Glucose COVID-19 Source SARS-CoV-2 (PCR) Influenza Type A (PCR) Influenza Type B (PCR) RSV (PCR) Add-On Test Request 05/15/22 05/15/22 05/15/22 20:20 20:20 20:20 WBC RBC Hgb Hct MCV MCH MCHC RDW Plt Count MPV Immature Gran % Neutrophils % Lymphocytes % Monocytes % Eosinophils % Basophils % Nucleated RBC % Absolute Neutrophils Absolute Lymphocytes Absolute Monocytes Absolute Eosinophils Absolute Basophils PT INR APTT D-Dimer VBG pH VBG pCO2 VBG pO2 VBG HCO3 VBG Total CO2 VBG O2 Saturation VBG Base Excess Sodium Potassium Chloride Carbon Dioxide Anion Gap BUN Creatinine Est GFR (CKD-EPI 2020) Glucose Calcium Magnesium Total Bilirubin AST ALT Alkaline Phosphatase Troponin I NT-Pro-B Natriuret Pep Total Protein Albumin Procalcitonin < 0.1 TSH 1.32 Free T4 1.05 Urine Color Urine Clarity Urine pH Ur Specific Kevil Urine Protein Urine Ketones Urine Blood Urine Nitrite Urine Bilirubin Urine Urobilinogen Ur Leukocyte Esterase Urine RBC Urine WBC Ur Epithelial Cells Urine Crystals Urine Bacteria Urine Casts Urine Mucus Ur Culture Indicated? Urine Glucose COVID-19 Source SARS-CoV-2 (PCR) Influenza Type A (PCR) Influenza Type B (PCR) RSV (PCR) Add-On Test Request DONE Last Vital Signs Temp 37 C 05/15/22 19:33 Pulse 124 H 05/15/22 20:31 Resp 27 H 05/15/22 20:31 BP 132/98 H 05/15/22 20:31 Pulse Ox 93 05/15/22 19:33
[2022-05-15] MEDS: Enoxaparin 40 MG/0.4 ML SYR SC (23:36)
[2022-05-15] MEDS: Sucralfate 1 GM TAB PO (23:36)
[2022-05-16] VITALS (82 sets, daily range): BP systolic 93–153; BP diastolic 47–79; PULSE 71–118; RESP 4–34; TEMP 36.5–36.9; O2SAT 86–97
[2022-05-16] MEDS: Budesonide/Formoterol 80/4.5 6.9 GM 60 PUFF INH IH ×3 (00:12→19:44)
[2022-05-16] MEDS: Gabapentin 100 MG CAP 300 MG PO ×2 (00:29→21:13)
[2022-05-16] MEDS: Pramipexole 0.25 MG TAB 0.125 MG PO ×2 (00:33→21:14)
[2022-05-16 00:36] LABS: Anion Gap 9.4 mmol/L (3-11); BUN 9 mg/dL (7-18); CO2 26.6 mmol/L (21.0-32.0); CREATININE 0.9 mg/dL (0.55-1.02); Calcium 8.7 mg/dL (8.5-10.1); Chloride 105 mmol/L (98-107); Estimated GFR 71.83 (mL/min/1.73m2); Glucose 164 mg/dL (74-106)
[2022-05-16] MEDS: oxyCODONE 10 MG TAB PO ×3 (00:36→21:14)
[2022-05-16 01:07] LABS: Sodium 141 mmol/L (136-145)
[2022-05-16 01:49] LABS: Sodium 141 mmol/L (136-145)
[2022-05-16] MEDS: Albuterol/Ipratropium 3 ML UPD VIAL UPD ×5 (05:00→23:38)
[2022-05-16 05:42] LABS: Abs Immature Grans 0.06 10^3/uL (0.0-0.06); Absolute Basophil Count 0.03 10^3/uL (0.0-0.2); Absolute Eosinophil Count 0.01 10^3/uL (0.0-0.7); Absolute Lymphocyte Count 0.91 10^3/uL (1.2-3.4); Absolute Monocyte Count 0.13 10^3/uL (0.1-0.8); Absolute Neutrophil Count 8.53 10^3/uL (1.2-6.7); Basophils % 0.3; Eosinophils % 0.1; HCT 41.8 % (36.0-46.0); HGB 13.5 g/dL (11.2-15.7); Immature Grans % 0.6; Lymphocytes % 9.4; MCH 29.7 pg (27.0-33.0); MCHC 32.3 % (32.0-36.0); MCV 92 fL (80-95); MPV 10.1 fL (8.0-11.0); Monocytes % 1.3; Neutrophils % 88.3; Platelet Count 389 10^3/uL (130-400); RBC 4.54 10^6/uL (3.93-5.22); RDW 12.7 % (11.7-14.6); RDW-SD 42.9 fL; WBC 9.67 10^3/uL (4.4-10.8)
[2022-05-16 06:01] LABS: Anion Gap 7.8 mmol/L (3-11); BUN 10 mg/dL (7-18); CO2 28.2 mmol/L (21.0-32.0); CREATININE 0.8 mg/dL (0.55-1.02); Calcium 8.8 mg/dL (8.5-10.1); Chloride 104 mmol/L (98-107); Estimated GFR 82.74 (mL/min/1.73m2); Glucose 164 mg/dL (74-106); Magnesium 2.1 mg/dL (1.8-2.4); Potassium 4.9 mmol/L (3.5-5.1); Sodium 140 mmol/L (136-145)
[2022-05-16] MEDS: Benzonatate 200 MG CAP PO ×3 (08:11→19:43)
[2022-05-16] MEDS: Aspirin E.C. 81 MG TABEC PO (08:12)
[2022-05-16] MEDS: Gabapentin 100 MG CAP PO ×2 (08:12→11:57)
[2022-05-16] MEDS: predniSONE 20 MG TAB 40 MG PO (08:12)
[2022-05-16] MEDS: guaiFENesin 600 MG TABCR PO ×2 (08:12→19:43)
[2022-05-16] MEDS: Omeprazole 20 MG CAPCR 40 MG PO (08:12)
[2022-05-16] MEDS: Ibuprofen 600 MG TAB PO ×3 (08:13→23:38)
[2022-05-16] MEDS: buPROPion-XL 150 MG TABCR PO (08:13)
[2022-05-16] MEDS: Fluticasone NASAL SPRAY 16 GM BTL NS (08:13)
--- NOTE | 2022-05-16 09:13 | PDOC.CMIN ---
- If Service Date Differs Date of service: 05/16/22 Time of Service: 09:14 Care Management Initial Assess REASON FOR HOSPITALIZATION:: COPD Exacerbation PAST MEDICAL HISTORY/PAST SURGICAL HISTORY:: All Active Problems (Updated 05/15/22 @ 23:32 by Laurence Puga MD). Discharge planning issues (Acute). DVT prophylaxis (Acute). Acute hyponatremia (Acute). COPD exacerbation (Acute). Duodenitis (Acute). Gastritis (Acute). GERD (gastroesophageal reflux disease) (Chronic). Cervicalgia (Acute). Tendonitis of long head of biceps brachii of right shoulder (Acute). Degenerative arthritis of cervical spine (Acute). Arthritis of left glenohumeral joint (Acute). Seasonal allergic reaction (Acute). Constipation, chronic (Acute). Cervical spinal stenosis (Acute). Tobacco use (Acute). Hyperlipidemia (Acute). COPD (chronic obstructive pulmonary disease) (Chronic). Minimally displaced zone I fracture of sacrum, sequela (Acute). HPV (human papilloma virus) infection (Acute). IBS (irritable bowel syndrome) (Chronic). Skin lesion (Acute). Edentulous (Acute). Reactive inflammatory arthritis (Acute). Low back pain (Acute). Lumbar radiculopathy (Acute). Abdominal pain (Acute). Abdominal bloating (Acute). Restless leg syndrome (Acute). Blood in stool (Acute). Hx of allergic reaction (Acute). Closed fracture of right distal fibula (Acute). Shoulder pain (Acute). Trigger finger of all digits of both hands (Acute). Arthritis of right glenohumeral joint (Acute). No-show for appointment (Acute). Spondylosis, cervical (Acute). Carpal tunnel syndrome, bilateral (Acute). Shoulder pain, bilateral (Acute). Effusion of left knee (Acute). Situational depression (Chronic). Myalgia (Acute). Generalized osteoarthritis of multiple sites (Acute). Patellar tendinitis (Acute). Sinusitis (Acute). Mild memory disturbance (Acute). Rash, skin (Acute). Visit for screening mammogram (Acute). Preventative health care (Acute). Colonoscopy planned (Acute). Frequency of urination (Acute). Eye irritation (Acute). Dysuria (Acute). Ankle joint disorder (Acute). Hypoglycemia (Acute). Cough (Acute). Sinusitis, acute (Acute). Medical History (Updated 05/15/22 @ 23:32 by Laurence Puga MD). ADHD. AGATHA III (cervical intraepithelial neoplasia III). COVID. Diaphoresis. Dyspnea. Exposure to COVID-19 virus. Grief reaction. Hemangioma of liver. Hematemesis. History of paresthesia. HPV (human papilloma virus) anogenital infection. Liver lesion. Nocturnal hypoxia. Pneumonia. Sleep apnea. Supraclavicular lymphadenopathy. Tendonitis. Surgical History (Updated 05/16/22 @ 00:10 by Laurence Puga MD). Arthroscopy, Shoulder. History of colonoscopy (~07/05/18). History of esophagogastroduodenoscopy (EGD) (~09/2020). S/P colonoscopy. S/P tonsillectomy. Trigger Finger release. several PREVIOUS FUNCTIONAL STATUS/SOCIAL/FAMILY SUPPORTS:: Afsaneh lives in a single family home in [place] with her daughter Dodie, 2 sons and a granddaughter. She is disabled but is independent at baseline. Afsaneh does not receive any services at home. CURRENT FUNCTIONAL STATUS:: Afsaneh was sitting up in a chair visiting with her daughter Dodie when CM met with her. She was agreeable to conversation but did not engage fully with CM. She informed CM that she has never been hospitalized for her COPD before and is very upset that she is here. She stated that she knows what she has to do. She stated I need to quit smoking and get the stress out of my life. She later identified that her 2 sons living with her are the source of her stress. Afsaneh also reported that she knows she needs a sleep study but she can't get it done because she does not have transportation. She stated that she hoped it could be done while she is here. CM informed her that Sleep Studies are not done at [facility] but offered to assist with transportation via [facility], when one could be scheduled. Afsaneh became upset and stated that she won't use [facility]. CM asked if she had had a bad experience with them in the past. She was unwilling to discuss the reason but did state that she has never used them before. ADVANCE DIRECTIVES:: none on file Has patient been provided with info about the portal/API?: Yes Did the patient sign up for the portal?: No CODE STATUS:: Full Code INSURANCE COVERAGE / FINANCIAL ISSUES:: Medicaid CURRENT HOME/COMMUNITY SERVICES/EQUIPMENT:: none PRIMARY CARE PHYSICIAN:: Soraida Sims POTENTIAL DISCHARGE NEEDS:: follow up appointments PATIENT/FAMILY EDUCATION NEEDS:: Review of discharge instructions, activity, limitations, follow up plan,. Ask Me Three TRANSPORTATION:: via private vehicle with family PLAN:: Afsaneh will likely be discharged home with no new services although she may need new home oxygen. She will follow up with her community providers and plan of care and transport with a friend or family. CM will follow and assess for ongoing discharge concerns.
--- NOTE | 2022-05-16 12:40 | PGE_ITS ---
Date of Service Date of service: 05/16/22 Time of Service: 12:40 Assessment and Plan Assessment and plan (1) COPD exacerbation: Status: Acute Assessment and plan: With hypoxia. Not on supplemental O2 routinely. Treat with scheduled and prn bronchdilators, steroids. Symbicort (in place of home advair). No role for antibiotics given a negative procalcitonin and no evidence of infiltrate on CXR. However, will obtain sputum sample. Will also monitor for recurrence of hemoptysis. Has been blood tinged only. Encourage pulmonary toilet. Wean O2 as tolerated. (2) Acute hyponatremia: Status: Acute Assessment and plan: Initial reported Na level was erroneous. Na is normal. (3) GERD (gastroesophageal reflux disease): Status: Chronic Assessment and plan: Continue PPI. Patient states she does not take carafate. (4) Situational depression: Status: Chronic Assessment and plan: Continue wellbutrin (5) DVT prophylaxis: Status: Acute Assessment and plan: SC heparin (6) Discharge planning issues: Status: Acute Assessment and plan: Full code Admit to the ICU Subjective Subjective Patient reports: no new complaints, tolerating a regular diet, shortness of breath and afebrile; denies nausea or vomiting Exam Narrative Exam Narrative: Sitting on edge of bed. Appears anxious. Pleasant and interactive. Resp Effort & Inspection: normal respiratory effort Auscultation: diminished lung sounds and wheezes Cardio Rate: regular rate Rhythm: regular rhythm Heart Sounds: S1 normal and S2 normal Skin General skin exam: no rashes or lesions noted Extrem General: no pedal edema and no calf tenderness Psych Appearance: grossly normal Mental Status: mental status grossly normal Speech and Movement: speech and movement normal Affect: anxious affect Objective Last Vital Signs Temp 36.8 C 05/16/22 01:30 Pulse 89 05/16/22 09:34 Resp 16 05/16/22 09:34 BP 153/62 H 05/16/22 08:01 Pulse Ox 97 05/16/22 09:34 Laboratory Results - last 24 hr 05/15/22 05/15/22 05/15/22 18:40 18:40 18:40 WBC 8.64 RBC 4.51 Hgb 13.6 Hct 41.4 MCV 92 MCH 30.2 MCHC 32.9 RDW 12.7 Plt Count 399 MPV 10.5 Immature Gran % 0.6 Neutrophils % 64.3 Lymphocytes % 22.2 Monocytes % 10.1 Eosinophils % 2.5 Basophils % 0.3 Nucleated RBC % 0.0 Absolute Neutrophils 5.55 Absolute Lymphocytes 1.92 Absolute Monocytes 0.87 H Absolute Eosinophils 0.22 Absolute Basophils 0.03 PT INR APTT D-Dimer VBG pH VBG pCO2 VBG pO2 VBG HCO3 VBG Total CO2 VBG O2 Saturation VBG Base Excess Sodium 116 L* Potassium 3.8 Chloride 96 L Carbon Dioxide 29.8 Anion Gap -9.8 L BUN 9 Creatinine 1.0 Est GFR (CKD-EPI 2020) 63.30 Glucose 110 H Calcium 9.3 Magnesium 2.2 Total Bilirubin 0.4 AST 22 ALT 22 Alkaline Phosphatase 71 Troponin I < 50 NT-Pro-B Natriuret Pep 49 Total Protein 8.0 Albumin 3.6 Procalcitonin TSH Free T4 Urine Color Urine Clarity Urine pH Ur Specific [place] Urine Protein Urine Ketones Urine Blood Urine Nitrite Urine Bilirubin Urine Urobilinogen Ur Leukocyte Esterase Urine RBC Urine WBC Ur Epithelial Cells Urine Crystals Urine Bacteria Urine Casts Urine Mucus Ur Culture Indicated? Urine Glucose COVID-19 Source SARS-CoV-2 (PCR) Influenza Type A (PCR) Influenza Type B (PCR) RSV (PCR) Add-On Test Request DONE 05/15/22 05/15/22 05/15/22 19:00 19:44 19:55 WBC RBC Hgb Hct MCV MCH MCHC RDW Plt Count MPV Immature Gran % Neutrophils % Lymphocytes % Monocytes % Eosinophils % Basophils % Nucleated RBC % Absolute Neutrophils Absolute Lymphocytes Absolute Monocytes Absolute Eosinophils Absolute Basophils PT INR APTT D-Dimer VBG pH Cancelled VBG pCO2 Cancelled VBG pO2 Cancelled VBG HCO3 Cancelled VBG Total CO2 Cancelled VBG O2 Saturation Cancelled VBG Base Excess Cancelled Sodium Potassium Chloride Carbon Dioxide Anion Gap BUN Creatinine Est GFR (CKD-EPI 2020) Glucose Calcium Magnesium Total Bilirubin AST ALT Alkaline Phosphatase Troponin I NT-Pro-B Natriuret Pep Total Protein Albumin Procalcitonin TSH Free T4 Urine Color Yellow Urine Clarity Clear Urine pH 6.0 Ur Specific [place] 1.010 Urine Protein Negative Urine Ketones Negative Urine Blood Trace-lysed H Urine Nitrite Negative Urine Bilirubin Negative Urine Urobilinogen 0.2 Ur Leukocyte Esterase Small H Urine RBC 0-2 Urine WBC 5-10 Ur Epithelial Cells Few Urine Crystals Negative Urine Bacteria Few Urine Casts Negative Urine Mucus Negative Ur Culture Indicated? Yes Urine Glucose Negative COVID-19 Source Nasopharynx SARS-CoV-2 (PCR) Negative Influenza Type A (PCR) Negative Influenza Type B (PCR) Negative RSV (PCR) Negative Add-On Test Request 05/15/22 05/15/22 05/15/22 20:20 20:20 20:20 WBC RBC Hgb Hct MCV MCH MCHC RDW Plt Count MPV Immature Gran % Neutrophils % Lymphocytes % Monocytes % Eosinophils % Basophils % Nucleated RBC % Absolute Neutrophils Absolute Lymphocytes Absolute Monocytes Absolute Eosinophils Absolute Basophils PT 10.2 INR 1.0 APTT 26.3 D-Dimer 991 H VBG pH 7.37 VBG pCO2 49 VBG pO2 54 VBG HCO3 28 VBG Total CO2 26 VBG O2 Saturation 88 VBG Base Excess 3 Sodium Potassium Chloride Carbon Dioxide Anion Gap BUN Creatinine Est GFR (CKD-EPI 2020) Glucose Calcium Magnesium Total Bilirubin AST ALT Alkaline Phosphatase Troponin I < 50 NT-Pro-B Natriuret Pep Total Protein Albumin Procalcitonin TSH Free T4 Urine Color Urine Clarity Urine pH Ur Specific [place] Urine Protein Urine Ketones Urine Blood Urine Nitrite Urine Bilirubin Urine Urobilinogen Ur Leukocyte Esterase Urine RBC Urine WBC Ur Epithelial Cells Urine Crystals Urine Bacteria Urine Casts Urine Mucus Ur Culture Indicated? Urine Glucose COVID-19 Source SARS-CoV-2 (PCR) Influenza Type A (PCR) Influenza Type B (PCR) RSV (PCR) Add-On Test Request 05/15/22 05/15/22 05/15/22 20:20 20:20 20:20 WBC RBC Hgb Hct MCV MCH MCHC RDW Plt Count MPV Immature Gran % Neutrophils % Lymphocytes % Monocytes % Eosinophils % Basophils % Nucleated RBC % Absolute Neutrophils Absolute Lymphocytes Absolute Monocytes Absolute Eosinophils Absolute Basophils PT INR APTT D-Dimer VBG pH VBG pCO2 VBG pO2 VBG HCO3 VBG Total CO2 VBG O2 Saturation VBG Base Excess Sodium Potassium Chloride Carbon Dioxide Anion Gap BUN Creatinine Est GFR (CKD-EPI 2020) Glucose Calcium Magnesium Total Bilirubin AST ALT Alkaline Phosphatase Troponin I NT-Pro-B Natriuret Pep Total Protein Albumin Procalcitonin < 0.1 TSH 1.32 Free T4 1.05 Urine Color Urine Clarity Urine pH Ur Specific [place] Urine Protein Urine Ketones Urine Blood Urine Nitrite Urine Bilirubin Urine Urobilinogen Ur Leukocyte Esterase Urine RBC Urine WBC Ur Epithelial Cells Urine Crystals Urine Bacteria Urine Casts Urine Mucus Ur Culture Indicated? Urine Glucose COVID-19 Source SARS-CoV-2 (PCR) Influenza Type A (PCR) Influenza Type B (PCR) RSV (PCR) Add-On Test Request DONE 05/16/22 05/16/22 05/16/22 00:18 01:30 05:19 WBC RBC Hgb Hct MCV MCH MCHC RDW Plt Count MPV Immature Gran % Neutrophils % Lymphocytes % Monocytes % Eosinophils % Basophils % Nucleated RBC % Absolute Neutrophils Absolute Lymphocytes Absolute Monocytes Absolute Eosinophils Absolute Basophils PT INR APTT D-Dimer VBG pH VBG pCO2 VBG pO2 VBG HCO3 VBG Total CO2 VBG O2 Saturation VBG Base Excess Sodium 141 D 141 140 Potassium 4.0 4.9 Chloride 105 104 Carbon Dioxide 26.6 28.2 Anion Gap 9.4 7.8 BUN 9 10 Creatinine 0.9 0.8 Est GFR (CKD-EPI 2020) 71.83 82.74 Glucose 164 H 164 H Calcium 8.7 8.8 Magnesium 2.1 Total Bilirubin AST ALT Alkaline Phosphatase Troponin I NT-Pro-B Natriuret Pep Total Protein Albumin Procalcitonin TSH Free T4 Urine Color Urine Clarity Urine pH Ur Specific [place] Urine Protein Urine Ketones Urine Blood Urine Nitrite Urine Bilirubin Urine Urobilinogen Ur Leukocyte Esterase Urine RBC Urine WBC Ur Epithelial Cells Urine Crystals Urine Bacteria Urine Casts Urine Mucus Ur Culture Indicated? Urine Glucose COVID-19 Source SARS-CoV-2 (PCR) Influenza Type A (PCR) Influenza Type B (PCR) RSV (PCR) Add-On Test Request 05/16/22 05:19 WBC 9.67 RBC 4.54 Hgb 13.5 Hct 41.8 MCV 92 MCH 29.7 MCHC 32.3 RDW 12.7 Plt Count 389 MPV 10.1 Immature Gran % 0.6 Neutrophils % 88.3 Lymphocytes % 9.4 Monocytes % 1.3 Eosinophils % 0.1 Basophils % 0.3 Nucleated RBC % 0.0 Absolute Neutrophils 8.53 H Absolute Lymphocytes 0.91 L Absolute Monocytes 0.13 Absolute Eosinophils 0.01 Absolute Basophils 0.03 PT INR APTT D-Dimer VBG pH VBG pCO2 VBG pO2 VBG HCO3 VBG Total CO2 VBG O2 Saturation VBG Base Excess Sodium Potassium Chloride Carbon Dioxide Anion Gap BUN Creatinine Est GFR (CKD-EPI 2020) Glucose Calcium Magnesium Total Bilirubin AST ALT Alkaline Phosphatase Troponin I NT-Pro-B Natriuret Pep Total Protein Albumin Procalcitonin TSH Free T4 Urine Color Urine Clarity Urine pH Ur Specific [place] Urine Protein Urine Ketones Urine Blood Urine Nitrite Urine Bilirubin Urine Urobilinogen Ur Leukocyte Esterase Urine RBC Urine WBC Ur Epithelial Cells Urine Crystals Urine Bacteria Urine Casts Urine Mucus Ur Culture Indicated? Urine Glucose COVID-19 Source SARS-CoV-2 (PCR) Influenza Type A (PCR) Influenza Type B (PCR) RSV (PCR) Add-On Test Request
[2022-05-16] MEDS: Normal Saline Flush 10 ML SYR IVP (19:45)
[2022-05-17] VITALS (13 sets, daily range): BP systolic 110–148; BP diastolic 62–81; PULSE 66–111; RESP 2–21; TEMP 36.2–36.9; O2SAT 93–100
[2022-05-17] MEDS: oxyCODONE 10 MG TAB PO ×2 (02:28→19:51)
[2022-05-17] MEDS: Ibuprofen 600 MG TAB PO (05:19)
[2022-05-17] MEDS: Albuterol 2.5 MG/3 ML INH SOLN VIAL UPD (05:19)
[2022-05-17] MEDS: Fluticasone NASAL SPRAY 16 GM BTL NS (07:48)
[2022-05-17] MEDS: Omeprazole 20 MG CAPCR 40 MG PO (07:48)
[2022-05-17] MEDS: Benzonatate 200 MG CAP PO ×3 (07:49→19:51)
[2022-05-17] MEDS: buPROPion-XL 150 MG TABCR PO (07:49)
[2022-05-17] MEDS: Gabapentin 100 MG CAP PO ×2 (07:49→12:30)
[2022-05-17] MEDS: guaiFENesin 600 MG TABCR PO ×2 (07:49→19:51)
[2022-05-17] MEDS: predniSONE 20 MG TAB 40 MG PO (07:49)
[2022-05-17] MEDS: Aspirin E.C. 81 MG TABEC PO (07:49)
[2022-05-17] MEDS: Budesonide/Formoterol 80/4.5 6.9 GM 60 PUFF INH IH ×2 (08:34→19:51)
[2022-05-17] MEDS: Albuterol/Ipratropium 3 ML UPD VIAL UPD ×5 (08:34→23:13)
--- NOTE | 2022-05-17 14:25 | W.PM.PROGNOT ---
Date of Service Date of service: 05/17/22 Time of Service: 14:25 Assessment and Plan Assessment and plan (1) COPD exacerbation: Status: Acute Assessment and plan: With hypoxia that is improving. Not on supplemental O2 routinely. Treat with scheduled and prn bronchdilators, steroids. Symbicort (in place of home advair). No role for antibiotics given a negative procalcitonin and no evidence of infiltrate on CXR. Sputum with normal girish. No recurrence of hemoptysis. Has been blood tinged only. Encourage pulmonary toilet. Wean O2 as tolerated. (2) Acute hyponatremia: Status: Acute Assessment and plan: Initial reported Na level was erroneous. Na is normal. (3) GERD (gastroesophageal reflux disease): Status: Chronic Assessment and plan: Continue PPI. Patient states she does not take carafate. (4) Situational depression: Status: Chronic Assessment and plan: Continue wellbutrin (5) DVT prophylaxis: Status: Acute Assessment and plan: SC heparin (6) Discharge planning issues: Status: Acute Assessment and plan: Full code Now on med-surg unit. Likely d/c tomorrow after exercise oximetry to monitor for need of home O2 Subjective Subjective Patient reports: feels better, tolerating a regular diet, shortness of breath and afebrile; denies nausea or vomiting Exam Narrative Exam Narrative: Sitting on edge of bed making jewelry. Const General: cooperative and no acute distress Orientation: alert Eyes General: appearance normal, both eyes and all related structures Sclera: sclerae normal Resp Effort & Inspection: normal respiratory effort Auscultation: diminished lung sounds and wheezes Cardio Rate: regular rate Rhythm: regular rhythm Heart Sounds: S1 normal and S2 normal Skin General skin exam: no rashes or lesions noted Extrem General: no pedal edema and no calf tenderness Psych Appearance: grossly normal Mental Status: mental status grossly normal Speech and Movement: speech and movement normal Affect: anxious affect Objective Last Vital Signs Temp 36.3 C L 05/17/22 11:35 Pulse 69 05/17/22 11:35 Resp 18 05/17/22 11:35 BP 129/81 05/17/22 11:35 Pulse Ox 93 05/17/22 11:35
[2022-05-17] MEDS: LORazepam 0.5 MG TAB PO (17:28)
[2022-05-17] MEDS: Gabapentin 100 MG CAP 300 MG PO (22:50)
[2022-05-17] MEDS: Pramipexole 0.25 MG TAB 0.125 MG PO (22:51)
[2022-05-18 03:49] VITALS: PULSE 84; RESP 20; RESP 4; RESP 7; O2SAT 97
[2022-05-18] MEDS: Albuterol/Ipratropium 3 ML UPD VIAL UPD ×3 (03:49→11:23)
[2022-05-18] MEDS: oxyCODONE 10 MG TAB PO (06:47)
[2022-05-18] MEDS: Budesonide/Formoterol 80/4.5 6.9 GM 60 PUFF INH IH (07:29)
[2022-05-18 07:37] VITALS: PULSE 78; RESP 16; RESP 7; O2SAT 96
[2022-05-18 07:40] VITALS: BP 137/80; PULSE 102; RESP 18; TEMP 36.6; O2SAT 92
[2022-05-18] MEDS: predniSONE 20 MG TAB 40 MG PO (08:06)
[2022-05-18] MEDS: Gabapentin 100 MG CAP PO ×2 (08:07→11:23)
[2022-05-18] MEDS: buPROPion-XL 150 MG TABCR PO (08:07)
[2022-05-18] MEDS: Omeprazole 20 MG CAPCR 40 MG PO (08:07)
[2022-05-18] MEDS: Aspirin E.C. 81 MG TABEC PO (08:08)
[2022-05-18] MEDS: Normal Saline Flush 10 ML SYR IVP (08:08)
[2022-05-18] MEDS: Fluticasone NASAL SPRAY 16 GM BTL NS (08:17)
[2022-05-18 09:26] VITALS: PULSE 112; PULSE 79; PULSE 84; RESP 18; RESP 24; O2SAT 91; O2SAT 96
--- NOTE | 2022-05-18 09:34 | CMPROGNOTE_ITS ---
- If Service Date Differs Date of service: 05/18/22 Time of Service: 09:34 Care Management Progress Note S/O: A: 61 year old female admitted to [facility] on 05/15/22 for COPD exacerbation, COPD exacerbation P: Afsaneh will likely be discharged home with no new services although she may need new home oxygen. She will follow up with her community providers and plan of care and transport with a friend or family. CM will follow and assess for ongoing discharge concerns.
[2022-05-18 10:08] LABS: Lyme Ab w Rflx to Lyme Confirm Negative (Negative)
[2022-05-18 10:48] VITALS: BP 119/75; PULSE 79; RESP 20; TEMP 36.7; O2SAT 93
[2022-05-18] MEDS: guaiFENesin/D-METHORPHAN HB 5 ML CUP 10 ML PO (11:23)
[2022-05-18 11:28] VITALS: O2SAT 93
--- NOTE | 2022-05-18 12:21 | W.PM.DS.N ---
Date of service: 05/18/22 Time of Service: 12:21 DS: Diagnosis Discharge Diagnosis (1) COPD exacerbation: Status: Acute (2) Acute hyponatremia: Status: Acute (3) GERD (gastroesophageal reflux disease): Status: Chronic (4) Situational depression: Status: Chronic (5) DVT prophylaxis: Status: Acute (6) Discharge planning issues: Status: Acute Discharge Plan Disposition Patient Disposition: Home Condition: Improving Discharge Details Reason For Visit: Acute Exacerbation of COPD Admit Date/Time: 05/15/22 21:02 Admit Provider: Laurence Puga Attending Provider: Laurence Puga Primary Care Provider: Soraida Sims V Hospital Course Hospital Course: Ms Lowe is a 61 year old female with PMHx of non-oxygen dependent COPD (with baseline O2 sats going down as low as 87% on RA at home, as well as h/o GERD, depression, ongoing tobacco abuse, who presented to [facility] ED today c/o shortness of breath and upper respiratory symptoms x 1-2 weeks, but especially so over the last 3 days. Her symptoms include fevers (up to 100.7 at home), chills, cough productive of yellow sputum which is blood tinged. On presentation to the ED, she was desaturating to 88% on RA and required 3L of O2 in the ED to saturate in low 90s. She tested negative for COVID-19, flu, and RSV. Her CXR did not reveal any infiltrates, and her procalcitonin was negative. She was initiated on bronchodilators and steroids and was improving. However, her labs came back showing a sodium of 116. The patient did report a headache. Per daughter, the patient had been drinking a lot of water. ER initiated normal saline. Hospitalist admission was requested. The Na level was repeated and was normal; the initial value was entered into the EMR erroneously. Her coughing paroxysms were significant. Tessalon perls and mucinex were not particularly helpful. Robitussin DM then initiated with some benefit. On day of discharge her RA oxygen saturation was 97% at rest and 91% with ambulation. No supplemental home O2 required. She will have another 3 day course of prednisone 40mg daily. She will continue on buproprion for smoking cessation. She has been evaluated by a sleep specialist and a sleep study was recommended. She has, however, not scheduled one. She was encouraged to do so. She would benefit from a pulmonary consult with Dr Frye; to be arranged. Home Meds and New Rx's Prescriptions: New bupropion HCl 150 mg Tablet Extended Release 24 Hr 150 mg PO QAM Qty: 30 0RF dextromethorphan-guaifenesin 10-100 mg/5 mL Syrup 10 ml PO Q4H PRN PRNQty: 0 0RF prednisone 20 mg Tablet 40 mg PO DAILY Qty: 3 0RF Rx Instructions: First dose on 05/19/22 Inhaler, Assist Devices [Pocket Chamber] 1 ea miscellaneous DIRECTED Qty: 0 0RF gabapentin 100 mg capsule See Rx Instructions .ROUTE .COMPLEX Qty: 90 0RF Rx Instructions: 100mg tab in AM and at noon. 300mg each night. Continued albuterol sulfate [ProAir HFA] 90 mcg/actuation HFA aerosol inhaler 2 puff IH Q4-5H PRN albuterol sulfate 2.5 mg /3 mL (0.083 %) solution for nebulization 2.5 mg IH Q4H PRN pramipexole [Mirapex] 0.125 mg tablet 0.125 mg PO DAILY Rx Instructions: Current med list: 1 Tab q afternoon, 2 tabs q HS fluticasone propionate [Flonase Allergy Relief] 50 mcg/actuation spray,suspension 1 spray CURTIS DAILY PRN Rx Instructions: 1 spray each side 2 times per day oxycodone 10 mg tablet 10 mg PO QID PRN omeprazole 40 mg capsule,delayed release(DR/EC) 40 mg PO DAILY Qty: 60 0RF docusate sodium [Colace] 100 mg capsule 100 mg PO PRN PRN fluticasone propionate [Flonase Allergy Relief] 50 mcg/actuation spray,suspension 1 spray intranasal DAILY Rx Instructions: administer into each nostril aspirin 81 mg tablet,delayed release (DR/EC) 81 mg PO DAILY Adult 50 Plus Probiotic 4 billion cell capsule 4,000 mmu cells PO DAILY Rx Instructions: administer with a meal Incruse Ellipta 62.5 mcg/actuation blister with device 1 inh inhalation DAILY fluticasone propion-salmeterol [Advair Diskus] 250-50 mcg/dose blister with device 1 inh inhalation BID Spiriva with HandiHaler 1 PUFF capsule, w/inhalation device 1 spray Inhalation PRN PRN ibuprofen [Ibuprofen IB] 200 MG tablet 200 mg PO QID PRN PRN Rx Instructions: 600 mg orally sucralfate [Carafate] 1 gram tablet 1 g PO QACHS Qty: 120 12RF Discontinued gabapentin 100 mg capsule 100 mg PO DAILY Rx Instructions: Current med list: take 1 tab in AM, 1 tab midday, 3 tabs in PM bupropion HCl [Wellbutrin XL] 150 mg tablet extended release 24 hr 150 mg PO QAM Rx Instructions: Current med list: 1 tab daily for 2-3 weeks, can then increase to 2 tabs daily. Discharge Instructions Instructions: COPD (Chronic Obstructive Pulmonary Disease) (DC) Stand Alone Forms: Nursing Discharge Form Referrals: Soraida Sims MD [Primary Care Provider] - 05/28/22 1:45 pm Eugenia Frye MD [ [facility] STAFF PHYSICIAN] - (COPD) Activity:: Activity as Tolerated Equipment/Supplies:: No Equipment Needed Diet:: Resume usual diet Discharge Orders Discharge Orders: Discharge Order (Routine); Ordered 05/18/22 Ordered By: Josh Chauhan DS: Summary Time Spent with Patient providing and/or coordinating discharge services: Greater than 30 minutes Status at Discharge Functional status at discharge: independent ambulation Overall status at discharge: patient is progressing back to baseline Mental Status: mental status grossly normal Speech and Movement: speech and movement normal Mood: congruent mood Affect: normal affect Exam Narrative Exam Narrative: Sitting in recliner. Less anxious appearing. Const General: cooperative and no acute distress Orientation: alert Eyes General: appearance normal, both eyes and all related structures Sclera: sclerae normal Resp Effort & Inspection: normal respiratory effort Auscultation: diminished lung sounds (Modestly improved aeration ) and wheezes Cardio Rate: regular rate Rhythm: regular rhythm Heart Sounds: S1 normal and S2 normal Skin General skin exam: no rashes or lesions noted Extrem General: no pedal edema and no calf tenderness Psych Appearance: grossly normal Mental Status: mental status grossly normal Speech and Movement: speech and movement normal Mood: congruent mood Affect: normal affect DS: Data Vitals/I&O Vitals and I&O: Vital Signs Temperature 36.7 C 05/18/22 10:48 Temperature Source Tympanic 05/18/22 10:48 Pulse 79 12/05/22 10:48 Pulse Rhythm Regular 05/18/22 07:45 Pulse 98 H 05/16/22 08:01 Respiratory Rate 20 05/18/22 10:48 Respiratory Effort Non-Labored 05/18/22 07:45 Respiratory Depth Normal 05/18/22 07:45 Respiratory Pattern Normal 05/18/22 07:45 Blood Pressure 119/75 05/18/22 10:48 Blood Pressure Mean 80 05/16/22 08:01 Blood Pressure Position Supine 05/15/22 22:10 Pulse Oximetry 93 05/18/22 11:28 Oxygen Delivery Method Nasal Cannula 05/18/22 11:28 Oxygen Flow Rate 1.5 05/18/22 11:28 Fraction of Inspired Oxygen (FIO2) 28 05/18/22 07:37 Pain Level 10 05/18/22 06:47 Intake & Output 05/17/22 05/18/22 05/18/22 23:59 11:59 23:59 Intake Total 240 / 960 Balance 240 / 260 Weight 75.9 kg Intake: IV Oral 240 / 940 Other: Urine Appearance Clear Comment pt has been voiding independently pt voided Voiding Methods Toilet Data Completed and Pending Labs on day of discharge: Labs from last 24 hours 05/15/22 18:40 Lyme Disease Antibody Negative PFSH All Active Problems Discharge planning issues (Acute) DVT prophylaxis (Acute) Acute hyponatremia (Acute) COPD exacerbation (Acute) Duodenitis (Acute) Gastritis (Acute) GERD (gastroesophageal reflux disease) (Chronic) Cervicalgia (Acute) Tendonitis of long head of biceps brachii of right shoulder (Acute) Degenerative arthritis of cervical spine (Acute) Arthritis of left glenohumeral joint (Acute) Seasonal allergic reaction (Acute) Constipation, chronic (Acute) Cervical spinal stenosis (Acute) Tobacco use (Acute) Hyperlipidemia (Acute) COPD (chronic obstructive pulmonary disease) (Chronic) Minimally displaced zone I fracture of sacrum, sequela (Acute) HPV (human papilloma virus) infection (Acute) IBS (irritable bowel syndrome) (Chronic) Skin lesion (Acute) Edentulous (Acute) Reactive inflammatory arthritis (Acute) Low back pain (Acute) Lumbar radiculopathy (Acute) Abdominal pain (Acute) Abdominal bloating (Acute) Restless leg syndrome (Acute) Blood in stool (Acute) Hx of allergic reaction (Acute) Closed fracture of right distal fibula (Acute) Shoulder pain (Acute) Trigger finger of all digits of both hands (Acute) Arthritis of right glenohumeral joint (Acute) No-show for appointment (Acute) Spondylosis, cervical (Acute) Carpal tunnel syndrome, bilateral (Acute) Shoulder pain, bilateral (Acute) Effusion of left knee (Acute) Situational depression (Chronic) Myalgia (Acute) Generalized osteoarthritis of multiple sites (Acute) Patellar tendinitis (Acute) Sinusitis (Acute) Mild memory disturbance (Acute) Rash, skin (Acute) Visit for screening mammogram (Acute) Preventative health care (Acute) Colonoscopy planned (Acute) Frequency of urination (Acute) Eye irritation (Acute) Dysuria (Acute) Ankle joint disorder (Acute) Hypoglycemia (Acute) Cough (Acute) Sinusitis, acute (Acute) Medical History ADHD AGATHA III (cervical intraepithelial neoplasia III) COVID Diaphoresis Dyspnea Exposure to COVID-19 virus Grief reaction Hemangioma of liver Hematemesis History of paresthesia HPV (human papilloma virus) anogenital infection Liver lesion Nocturnal hypoxia Pneumonia Sleep apnea Supraclavicular lymphadenopathy Tendonitis Surgical History Arthroscopy, Shoulder History of colonoscopy (~07/05/18) History of esophagogastroduodenoscopy (EGD) (~09/2020) S/P colonoscopy S/P tonsillectomy Trigger Finger release several Family History Mother Personal history of malignant neoplasm uterine, mets to colon Social History Smoking/Tobacco Use Status: Current every day Tobacco Type: cigarettes Smoking risk assessment performed?: Yes Alcohol Intake: never Drug use: Never Substance use type: does not use Current gender identity: female Do you feel safe at home: Yes Do you feel safe in your relationship?: Yes
--- NOTE | 2022-05-18 12:43 | PDOC.CMDIS ---
- If Service Date Differs Date of service: 05/18/22 Time of Service: 12:43 LACE Index Scoring Tool - Questions: Length of Stay (in days): 3 Acuity (Admit via E.D.?): Yes Comorbidities: Chronic Pulmonary Disease (COPD) E.D. Visits: 1 - Answers: Total Score: 9 Risk of Readmission: Low Risk Care Management Discharge Reason for Hospitalization: COPD Exacerbation Discharge Plan: Afsaneh is discharged home via private vehicle with daughter. New RX's are transmitted to [facility]. Afsaneh will follow up with her PCP, Soraida Sims on 05/28/22, as scheduled. Outpatient pulmonary consult with Dr Frye and Sleep Study are recommended. Afsaneh is provided with Adv. Directive forms and wishes to complete them at a later date. Patient/Family Education Needs: Review discharge instructions, limitations, medications and plan to follow up with community providers. Discuss ask me three and goals of self care.
[2022-05-20 21:22] LABS: Anaplasma phagocytophilum Negative (Negative); B. miyamotoi PCR Negative (Negative); Babesia divergens/MO-1 Negative (Negative); Babesia duncani Negative (Negative); Babesia microti Negative (Negative); Ehrlichia chaffeensis Negative (Negative); Ehrlichia ewingii/canis Negative (Negative); Ehrlichia muris eauclairensis Negative (Negative)
== END 2022-05-18 14:37 | disposition home or self-care (01) | DRG 191 ==
LOC: ER 21:42 → ICU 22:18 → MS 05-16 18:26
PROVIDERS: Admitting Provider Internal Medicine; Emergency Provider Registered Nurse Emergency; PCP Family Medicine; Visit Provider Internal Medicine
DX: J44.1 Chronic obstructive pulmonary disease with (acute) exacerbation (principal); E87.1 Hypo-osmolality and hyponatremia; R09.02 Hypoxemia; K21.9 Gastro-esophageal reflux disease without esophagitis; F43.21 Adjustment disorder with depressed mood; Z79.899 Other long term (current) drug therapy; F17.210 Nicotine dependence, cigarettes, uncomplicated; K59.09 Other constipation; E78.5 Hyperlipidemia, unspecified; M48.02 Spinal stenosis, cervical region; M54.16 Radiculopathy, lumbar region; G25.81 Restless legs syndrome; M47.812 Spondylosis without myelopathy or radiculopathy, cervical region; M15.9 Polyosteoarthritis, unspecified; R63.1 Polydipsia
CPT/HCPCS: 36415; 80048; 80053; 82805; 84145; 87637; 87798; 93005; 94618; 94640; 96361; 96374; 96375; 99285; J1650; 71045; 81003; 81015; 83735; 83880; 84295; 84439; 84443; 84484; 85025; 85379; 85610; 85730; 86618; 87070; 87086; 87205; 93010; 94667; 94668; 99232; 99239; 99291; J2060; J2930; J3490; J7512; J7613; J7620

== ENCOUNTER 2022-05-28 15:52 | Outpatient (REF) | payer MEDICAID, SELFPAY ==
[2022-05-28 19:22] LABS: ESR 40 mm/hr (0-30)
[2022-05-28 19:25] LABS: Hemoglobin A1C 5.9 % (<5.7)
[2022-05-28 19:29] LABS: C-Reactive Protein 0.16 mg/dL (0.0-0.3)
== END 2022-05-28 15:53 | disposition home or self-care (01) ==
LOC: NCHCN 15:52
PROVIDERS: PCP Family Medicine; Visit Provider Family Medicine
DX: R51.9 Headache, unspecified (principal); M79.10 Myalgia, unspecified site; R73.9 Hyperglycemia, unspecified
CPT/HCPCS: 85652; 83036; 86140

== ENCOUNTER 2022-06-15 00:30 | Outpatient (CLI) | payer MEDICAID, SELFPAY ==
[2022-06-15] MEDS: Albuterol HFA 18 GM 200 PUFF INH IH (14:04)
[2022-06-15] MEDS: Inhaler, Assist Device 1 EACH MC (14:05)
--- NOTE | 2022-06-19 11:46 | W.PFT ---
Date of service: 06/15/22 Time of Service: 13:00 Pulmonary Function Test Result Requesting Provider Soraida Sims Indications: COPD Interpretation Spirometry: There is moderate airflow limitation. There is a significant bronchodilator response. Lung Volumes: There is air trapping Diffusion Capacity: Normal diffusion Airway Pressure: Increased airways resistance Impression Moderate airflow obstruction with air trapping, a normal diffusion and a significant bronchodilator response. In the correct clinical context this may likely represent COPD (chronic bronchitis) or asthma-COPD overlap syndrome. Clinical Correlation therefore is recommended.
== END 2022-06-15 00:31 | disposition home or self-care (01) ==
LOC: RT 00:30
PROVIDERS: PCP Family Medicine; Visit Provider Family Medicine
DX: J44.1 Chronic obstructive pulmonary disease with (acute) exacerbation (principal); Z86.16 Personal history of COVID-19; R06.09 Other forms of dyspnea; R94.2 Abnormal results of pulmonary function studies; Z87.891 Personal history of nicotine dependence
CPT/HCPCS: 94060; 94726; 94729

== ENCOUNTER 2022-06-22 02:44 | Outpatient (CLI) | payer MEDICAID, SELFPAY ==
--- NOTE | 2022-06-22 13:09 | DI.CTLCSR_ITS ---
Exam(s) CT CHEST LUNG CANCER SCREEN EXAM: CT CHEST LUNG CANCER SCREEN CLINICAL HISTORY: CIGARETTE SMOKER CURRENT, F17.210, SCREENING FOR LUNG CA TECHNIQUE: Imaging Protocol: Axial computed tomography images with coronal and sagittal reformatted images were created and reviewed. Low dose screening protocol. COMPARISON: CT CT CHEST LUNG CANCER SCREEN from 06/03/2020 FINDINGS: Tracheobronchial tree: No bronchiectasis or mucus plugging.. Mediastinum and Milagros: No dominant adenopathy or fluid collection. Pulmonary parenchyma: No consolidation or dominant measurable mass. No visible emphysematous changes. Lung Nodules: No change calcified granuloma right middle lobe. No changes small inter fissural nodul e between left upper and lower lobes. Pleura: No effusion. No pneumothorax. Heart: The heart is not dilated. [id number] coronary artery calcifications are seen. Aorta: Thoracic aorta non-dilated. Upper abdomen: Unremarkable. Bones: Unremarkable for age. Soft Tissues: Unremarkable. IMPRESSION: No suspicious pulmonary nodules. Lung RADS Cat 2 - Benign Appearance / Behavior: Nodules with a very low likelihood of becoming a clin ically active cancer due to size or lack of growth Lung-RADS 1.0 CATEGORIES: Category 0 - Prior chest CT exam(s) being located for comparison. Category 1 - Annual screening in 12 months. No nodules or definitely benign nodules. Category 2 - Annual screening in 12 months. Benign appearance. Nodules with low likelihood of becomin g active cancer. Category 3 - 6-month follow-up. Probably benign. Short-term follow-up suggested. Nodules with low lik elihood of becoming active cancer. Category 4A - 3-month follow-up and CT/PET if >8 mm in size. Suspicious finding. Findings which requi re additional testing. Category 4B - Findings which require additional testing and tissue sampling. Category 4X - Category 3 or 4 nodules with additional features or imaging findings that increases the suspicion of malignancy. Modifier S- Potentially clinically significant findings (non lung cancer) RADIATION DOSE DELIVERED: 76.9mGy.cm Total DLP DATA REPOSITORY: All CT scans at this facility are submitted to the National Radiology Data Registry (NRDR) Dose Index Registry (DIR) with the [employer] ([employer]). RADIATION OPTIMIZATION: All CT scans at this facility use at least one of these dose optimization te chniques: automated exposure control; mA and/or kV adjustment per patient size (includes targeted exa ms where dose is matched to clinical indication); or iterative reconstruction.
== END 2022-06-22 03:04 ==
LOC: DI 02:45
PROVIDERS: PCP Family Medicine; Visit Provider Family Medicine
DX: Z12.2 Encounter for screening for malignant neoplasm of respiratory organs (principal); F17.210 Nicotine dependence, cigarettes, uncomplicated
CPT/HCPCS: 71271

== ENCOUNTER 2022-08-25 16:42 | Outpatient (REF) | payer MEDICAID, SELFPAY | END 2022-08-25 16:43 | disposition home or self-care (01) | LOC: NCHCN 16:42 | PROVIDERS: PCP Family Medicine; Visit Provider Family Medicine | DX: R35.0 Frequency of micturition (principal); R10.30 Lower abdominal pain, unspecified | CPT/HCPCS: 87086 ==

== ENCOUNTER 2022-09-01 12:10 | Inpatient (IN) | payer MEDICAID, SELFPAY ==
[2022-09-01] VITALS (20 sets, daily range): BP systolic 112–167; BP diastolic 67–102; PULSE 68–112; RESP 13–24; TEMP 36.7–37.4; O2SAT 91–98; BMI 32.3
--- NOTE | 2022-09-01 13:15 | DI.CT_ITS ---
Exam(s) CT ABDOMEN PELVIS W EXAM: CT ABDOMEN PELVIS W CLINICAL HISTORY: Suprapubic pain TECHNIQUE: Imaging Protocol: Axial computed tomography images with coronal and sagittal reformatted images were created and reviewed CONTRAST MATERIAL: Intravenous: Omnipaque 350 Contrast volume:100 mL Oral: No FINDINGS: ABDOMEN: Lung Bases: Normal where visualized. Liver: Normal density. No measurable mass. Portal, Superior Mesenteric, and Splenic Veins: Unremarkable. Gallbladder and Biliary Tract: No radiodense calculus or dilation. Pancreas: Normal density, no abnormal calcifications or inflammatory process. Spleen: Normal. Adrenals: No masses seen. Kidneys: Normal size, contour and axis. No radiodense stones or obstructive uropathy. No masses seen. Abdominal Aorta: Abdominal portion non-dilated. Atherosclerosis is present. Bowel: There is diverticulosis seen in the sigmoid colon. There is bowel wall thickening and pericol onic stranding seen in the mid sigmoid colon consistent with acute diverticulitis. There is a small amount of fluid seen in the pelvis. There is also free air in the abdomen. The findings are suspici ous for ruptured viscus. Appendix is unremarkable. Peritoneal Cavity: Small amount of free fluid in the pelvis. There is pneumoperitoneum. Lymph Nodes: Within normal limits. Bones: Within normal limits for the patient's age. Soft Tissues: Unremarkable. PELVIS: Bladder: Symmetric distention, no gross wall thickening. Reproductive Organs: Unremarkable as visualized. Lymph Nodes: Within normal limits. Bones: Within normal limits for the patient's age. IMPRESSION: 1. Findings of acute diverticulitis involving the mid sigmoid colon. There is a moderate amount of f ree air within the abdomen suggesting a perforated viscus. No abscess is seen. 2. Findings were discussed with Dr. Burris at 2:18 p.m. on 09/01/2022. RADIATION DOSE DELIVERED: 885.21mGy.cm Total DLP DATA REPOSITORY: All CT scans at this facility are submitted to the National Radiology Data Registry (NRDR) Dose Index Registry (DIR) with the [employer] (ACR). RADIATION OPTIMIZATION: All CT scans at this facility use at least one of these dose optimization te chniques: automated exposure control; mA and/or kV adjustment per patient size (includes targeted exa ms where dose is matched to clinical indication); or iterative reconstruction.
[2022-09-01 13:34] LABS: Clarity Clear (Clear); Leukocyte Esterase Trace (Negative); Specific Gravity 1.015 (1.005-1.025); pH 5.5 (5-8)
[2022-09-01 13:35] LABS: Bilirubin Negative (Negative); Blood Negative (Negative); Glucose Negative (Negative); Ketones Negative (Negative); Nitrite Negative (Negative); Urobilinogen 0.2 mg/dL (Up to 0.2)
[2022-09-01 13:36] LABS: Absolute Neutrophil Count 10.85 10^3/uL (1.2-6.7); Bands % 1; HCT 42.9 % (36.0-46.0); HGB 13.9 g/dL (11.2-15.7); MCH 29.3 pg (27.0-33.0); MCHC 32.4 % (32.0-36.0); MCV 90 fL (80-95); MPV 10.9 fL (8.0-11.0); Platelet Count 351 10^3/uL (130-400); RBC 4.75 10^6/uL (3.93-5.22); RDW 12.6 % (11.7-14.6); RDW-SD 41.6 fL; WBC 15.72 10^3/uL (4.4-10.8)
[2022-09-01 13:37] LABS: Absolute Lymphocyte Count 4.09 10^3/uL (1.2-3.4); Absolute Monocyte Count 0.79 10^3/uL (0.1-0.8); Atypical Lymphocytes % 4; Diff Comment Manual Differential
[2022-09-01 13:38] LABS: Albumin 3.8 g/dL (3.4-5.0); Alkaline Phosphatase 75 U/L (46-116); BUN 11 mg/dL (7-18); Bilirubin, Total 0.8 mg/dL (0.2-1.0); Calcium 9.2 mg/dL (8.5-10.1); Glucose 95 mg/dL (74-106); RBC Morphology Normal; Sodium 141 mmol/L (136-145)
--- NOTE | 2022-09-01 13:38 | ED.GENADUL_ITS ---
Discharge Plan Disposition Patient Disposition: Admit to [facility] Condition: Stable Discharge Details Clinical Impression: Free intraperitoneal air, Diverticulitis, Diverticulitis of intestine with perforation Admit Date/Time: 09/01/22 17:36 Admit Provider: Sheryl Tanner Attending Provider: Sheryl Tanner Primary Care Provider: Soraida Sims V ED Provider: Rivas Burris Discharge Data Discharge Date/Time-TO BE ENTERED AT DEPARTURE: 09/01/22 16:04 Medical Decision Making This is an overall well-appearing mildly tachycardic female with suprapubic abdominal pain concerning for intra-abdominal infection versus ureterolithiasis. She is not hypotensive nor vasculopath to suggest ruptured AAA. She has no rash on her abdomen to suggest zoster. No recent sexually transmitted infection so I am not concerned for PID. She does have urinary frequency but recently had a negative urine culture. We will send a repeat urinalysis. She has had no recent history of trauma to suggest intra-abdominal trauma. No pain out of pro portion to suggest necrotizing soft tissue infection. If her CT is reassuring with no acute electrolyte abnormalities well consider pelvic transvaginal ultrasound to assess for ovarian torsion. 2:24 PM I received a call from radiology as the patient had free air with diverticulitis for which I paged general surgery. We will keep patient n.p.o., provide an additional 500 cc of fluid in addition to the 1 L she received initially and treat with ciprofloxacin and metronidazole IV given the patient's allergies to cephalosporins and penicillins. 2:45 PM I met with the patient and explained her diverticulitis with free air. I spoke with Dr. Tanner from general surgery who will review the patient's images and get back to me. Lactate was reassuring. 7:45 PM Patient was ultimately hospitalized with general surgery with plan for surgical intervention. HPI General Date/Time Provider Initiated Documentation: 09/01/22 13:22 . HPI Narrative: This is a a 61 female arrived to the emergency department via private vehicle with a suprapubic abdominal discomfort. She felt similar symptoms last week when she had a urinalysis performed prior to treatment with ciprofloxacin. She ended up having a negative urine culture so she did not complete her complete course of ciprofloxacin. She did not take any falls. She denies chest pain or shortness of breath. She denies recent tobacco, ethanol, and illicits. She has a history of prediabetes. She has never had a kidney stone. She has been nauseous but has not been vomiting or had any fevers. She has had a remote colposcopy but has never had any intra-abdominal surgeries. She has had remote colonoscopy and endoscopy. Related Data Home Medications Medication Instructions Recorded Confirmed tiotropium bromide 18 mcg capsule 1 spray inhalation PRN PRN 04/19/15 09/01/22 with inhalation device (Spiriva with HandiHaler) ibuprofen 200 mg tablet (Ibuprofen 200 mg PO QID PRN PRN 09/18/15 09/01/22 IB) albuterol sulfate 2.5 mg/3 mL 2.5 mg inhalation Q4H PRN 06/26/19 09/01/22 (0.083 %) solution for nebulization albuterol sulfate 90 mcg/actuation 2 puff inhalation Q4-5H PRN 06/26/19 09/01/22 aerosol inhaler (ProAir HFA) pramipexole 0.125 mg tablet 0.125 mg PO DAILY 06/26/19 09/01/22 (Mirapex) fluticasone propionate 50 1 spray intranasal DAILY PRN 06/26/20 09/01/22 mcg/actuation nasal spray,suspension (Flonase Allergy Relief) oxycodone 10 mg tablet 10 mg PO QID PRN 08/28/20 09/01/22 sucralfate 1 gram tablet (Carafate) 1 g PO QACHS #120 tabs 09/27/20 09/01/22 omeprazole 40 mg capsule,delayed 40 mg PO DAILY #60 caps 11/27/20 09/01/22 release aspirin 81 mg tablet,delayed 81 mg PO DAILY 05/12/22 09/01/22 release docusate sodium 100 mg capsule 100 mg PO PRN PRN 05/12/22 09/01/22 (Colace) fluticasone 250 mcg-salmeterol 50 1 inh inhalation BID 05/12/22 09/01/22 mcg/dose blistr powdr for inhalation (Advair Diskus) fluticasone propionate 50 1 spray intranasal DAILY 05/12/22 09/01/22 mcg/actuation nasal spray,suspension (Flonase Allergy Relief) lactobacillus combination no.9 4 4,000 mmu cells PO DAILY 05/12/22 09/01/22 billion cell capsule (Adult 50 Plus Probiotic) umeclidinium 62.5 mcg/actuation 1 inh inhalation DAILY 05/12/22 09/01/22 blister powder for inhalation (Incruse Ellipta) Inhaler, Assist Devices [Pocket 1 ea miscellaneous DIRECTED ##0 05/18/22 09/01/22 Chamber] bupropion HCl 150 mg 24 hr tablet, 150 mg PO QAM #30 tabs 05/18/22 09/01/22 extended release dextromethorphan-guaifenesin 10 10 ml PO Q4H PRN PRN #0 mL 05/18/22 09/01/22 mg-100 mg/5 mL oral syrup gabapentin 100 mg capsule See Rx Instructions .Route 05/18/22 09/01/22 .COMPLEX #90 caps prednisone 20 mg tablet 40 mg PO DAILY #3 tabs 05/18/22 09/01/22 methylphenidate HCl 10 mg tablet 10 mg PO BID 06/18/22 09/01/22 naloxone 4 mg/actuation nasal 4 mg intranasal Q2M PRN 06/18/22 09/01/22 spray (Narcan) Previous Rx's Medication Instructions Recorded sucralfate 1 gram tablet (Carafate) 1 g PO QACHS #120 tabs 09/27/20 omeprazole 40 mg capsule,delayed 40 mg PO DAILY #60 caps 11/27/20 release Inhaler, Assist Devices [Pocket 1 ea miscellaneous DIRECTED ##0 05/18/22 Chamber] bupropion HCl 150 mg 24 hr tablet, 150 mg PO QAM #30 tabs 05/18/22 extended release dextromethorphan-guaifenesin 10 10 ml PO Q4H PRN PRN #0 mL 05/18/22 mg-100 mg/5 mL oral syrup gabapentin 100 mg capsule See Rx Instructions .Route 05/18/22 .COMPLEX #90 caps prednisone 20 mg tablet 40 mg PO DAILY #3 tabs 05/18/22 Allergies Allergy/AdvReac Type Severity Reaction Status Date / Time cephalexin [Cephalexin] Allergy Intermediate Skin Rash Unverified 09/01/22 13:24 Penicillins Allergy Intermediate rash with Unverified 09/01/22 13:24 all cillins ampicillin Allergy Mild Skin Rash Unverified 09/01/22 13:24 cefprozil [From Cefzil] Allergy Mild Skin Rash Unverified 09/01/22 13:24 Cephalosporins Allergy Mild Hives Unverified 09/01/22 13:24 clindamycin Allergy Mild Skin Rash Unverified 09/01/22 13:24 doxycycline Allergy Mild Skin Rash Unverified 09/01/22 13:24 varenicline [From Chantix] Allergy Mild Unverified 09/01/22 13:24 amoxicillin Allergy Unknown Hives Unverified 09/01/22 13:24 acetaminophen Allergy Hives Verified 09/01/22 13:24 [From Mapap (acetaminophen)] clarithromycin [From Biaxin] Allergy rash/hives Unverified 09/01/22 13:24 duloxetine [From Cymbalta] AdvReac Intermediate made me Unverified 09/01/22 13:24 feel very weird linaclotide [From Linzess] AdvReac Mild Diarrhea Unverified 09/01/22 13:24 nicotine [From Nicorette] AdvReac Mild Nauseaous Unverified 09/01/22 13:24 adhesive tape AdvReac Unknown Skin Rash Unverified 09/01/22 13:24 adhesive AdvReac Topical Unverified 09/01/22 13:24 Irritation banana AdvReac abd Unverified 09/01/22 13:24 bloating codeine AdvReac sick Unverified 09/01/22 13:24 hydrocodone [From Vicodin] AdvReac cold Verified 09/01/22 13:24 sweats, vomiting black hair dye Allergy Intermediate Hives Uncoded 09/01/22 13:24 eggs Allergy bloating Uncoded 09/01/22 13:24 General Stated Complaint: Abd Prob MIGUEL: 3 PFSH All Active Problems (Updated 09/01/22 @ 19:49 by Rivas Burris MD) Free intraperitoneal air (Acute) Diverticulitis (Chronic) Diverticulitis of intestine with perforation (Acute) Peritonitis (Acute) Perforated diverticulum of large intestine (Acute) COPD exacerbation (Acute) Duodenitis (Acute) Gastritis (Acute) GERD (gastroesophageal reflux disease) (Chronic) Cervicalgia (Acute) Tendonitis of long head of biceps brachii of right shoulder (Acute) Degenerative arthritis of cervical spine (Acute) Arthritis of left glenohumeral joint (Acute) Seasonal allergic reaction (Acute) Constipation, chronic (Acute) Cervical spinal stenosis (Acute) Tobacco use (Acute) Hyperlipidemia (Acute) COPD (chronic obstructive pulmonary disease) (Chronic) Minimally displaced zone I fracture of sacrum, sequela (Acute) HPV (human papilloma virus) infection (Acute) IBS (irritable bowel syndrome) (Chronic) Skin lesion (Acute) Edentulous (Acute) Reactive inflammatory arthritis (Acute) Low back pain (Acute) Lumbar radiculopathy (Acute) Abdominal pain (Acute) Abdominal bloating (Acute) Restless leg syndrome (Acute) Blood in stool (Acute) Hx of allergic reaction (Acute) Closed fracture of right distal fibula (Acute) Shoulder pain (Acute) Trigger finger of all digits of both hands (Acute) Arthritis of right glenohumeral joint (Acute) No-show for appointment (Acute) Spondylosis, cervical (Acute) Carpal tunnel syndrome, bilateral (Acute) Shoulder pain, bilateral (Acute) Effusion of left knee (Acute) Situational depression (Chronic) Myalgia (Acute) Generalized osteoarthritis of multiple sites (Acute) Patellar tendinitis (Acute) Sinusitis (Acute) Mild memory disturbance (Acute) Rash, skin (Acute) Visit for screening mammogram (Acute) Preventative health care (Acute) Colonoscopy planned (Acute) Frequency of urination (Acute) Eye irritation (Acute) Dysuria (Acute) Ankle joint disorder (Acute) Hypoglycemia (Acute) Cough (Acute) Sinusitis, acute (Acute) Medical History ADHD AGATHA III (cervical intraepithelial neoplasia III) COVID Diaphoresis Dyspnea Exposure to COVID-19 virus Grief reaction Hemangioma of liver Hematemesis History of paresthesia HPV (human papilloma virus) anogenital infection Liver lesion Nocturnal hypoxia Pneumonia Sleep apnea Supraclavicular lymphadenopathy Tendonitis Surgical History Arthroscopy, Shoulder History of colonoscopy (~07/05/18) History of esophagogastroduodenoscopy (EGD) (~09/2020) S/P colonoscopy S/P tonsillectomy Trigger Finger release several Family History Mother Personal history of malignant neoplasm uterine, mets to colon Social History Smoking/Tobacco Use Status: Former Tobacco Use Quit Date: 05/14/22 Smoking risk assessment performed?: Yes Alcohol Intake: never Drug use: Never Substance use type: does not use Current gender identity: female Do you feel safe at home: Yes Do you feel safe in your relationship?: Yes Exam Narrative Exam Narrative: General: Mildly uncomfortable appearing in no acute distress speaking in compl ete sentences. Head: Normocephalic, atraumatic Ear, nose, mouth, throat: Grossly normal inspection. Normal voice, handling secretions normally. Neck: Trachea midline. Cardiovascular: Well-perfused distal extremities. Respiratory: Nonlabored respiration. Clear lungs bilaterally. Gastrointestinal: Mildly distended abdomen. Suprapubic discomfort. No rebound. No guarding. No rash to abdomen. Musculoskeletal: No edema. Moving all 4 extremities spontaneously. Skin: Normal for age and race, grossly normal temperature and turgor. No acute rash. Neurologic: Alert and appropriate, no apparent acute deficits. Psychiatric: Mood and manner are appropriate. Grooming and personal hygiene are appropriate. Course Vital Signs Vital signs: Respiratory Effort Normal, Non-Labored 09/01/22 13:25 Lab/Test Results Lab/Test Results: Laboratory Tests Range/Units 09/01/22 12:40 Urine Color (Yellow) Yellow Urine Clarity (Clear) Clear Urine pH (5-8) 5.5 Ur Specific [place] (1.005-1.025) 1.015 Urine Protein (Negative) mg/dL Negative Urine Ketones (Negative) mg/dL Negative Urine Blood (Negative) Negative Urine Nitrite (Negative) Negative Urine Bilirubin (Negative) Negative Urine Urobilinogen (Up to 0.2) mg/dL 0.2 Ur Leukocyte Esterase (Negative) Trace Urine Glucose (Negative) mg/dL Negative
[2022-09-01 13:39] LABS: ALT 25 U/L (14-59); AST 15 U/L (15-37); Anion Gap 4.4 mmol/L (3-11); CO2 31.6 mmol/L (21.0-32.0); Chloride 105 mmol/L (98-107); Potassium 4.8 mmol/L (3.5-5.1)
[2022-09-01] MEDS: Normal Saline - Diluent 50 ML VIAL IJ (14:03)
[2022-09-01] MEDS: Normal Saline Flush 10 ML SYR IVP ×2 (14:04→20:18)
[2022-09-01] MEDS: Omnipaque 350 MG/ML 500 ML BTL-Imaging package IJ (14:04)
[2022-09-01] MEDS: Normal Saline 500 ML IV (14:29)
[2022-09-01 14:34] LABS: Lactate 0.8 mmol/L (0.6-1.4)
[2022-09-01 14:40] LABS: Bacteria Rare HPF (Negative); C & S Indicated? Yes; Casts Negative LPF (Negative); Crystals Negative HPF (Negative); Epithelial Cells Rare HPF (Negative); Mucus Trace (Negative); RBC Negative HPF (0-2)
[2022-09-01] MEDS: fentaNYL 100 MCG/2 ML VIAL 50 MCG IVP ×2 (14:55→15:29)
[2022-09-01] MEDS: CIPROFLOXACIN 400 MG/200 ML BAG 200 MG IVPB (14:58)
[2022-09-01 15:07] LABS: Source Nasal/Nares
--- NOTE | 2022-09-01 15:07 | NUR.NOTE ---
Nursing Note: Pain improved with fentanyl. Gen surg Stoiber at bedside for eval.
--- NOTE | 2022-09-01 15:27 | W.ANESPRE ---
General Info Date of Service Date Performed: 09/01/22 Height: 5 ft 1 in Weight: 77.564 kg Body Mass Index (BMI): 32.3 Meds Allergies and Home Medications Allergies Allergy/AdvReac Type Severity Reaction Status Date / Time cephalexin [Cephalexin] Allergy Intermediate Skin Rash Unverified 09/01/22 13:24 Penicillins Allergy Intermediate rash with Unverified 09/01/22 13:24 all cillins ampicillin Allergy Mild Skin Rash Unverified 09/01/22 13:24 cefprozil [From Cefzil] Allergy Mild Skin Rash Unverified 09/01/22 13:24 Cephalosporins Allergy Mild Hives Unverified 09/01/22 13:24 clindamycin Allergy Mild Skin Rash Unverified 09/01/22 13:24 doxycycline Allergy Mild Skin Rash Unverified 09/01/22 13:24 varenicline [From Chantix] Allergy Mild Unverified 09/01/22 13:24 amoxicillin Allergy Unknown Hives Unverified 09/01/22 13:24 acetaminophen Allergy Hives Verified 09/01/22 13:24 [From Mapap (acetaminophen)] clarithromycin [From Biaxin] Allergy rash/hives Unverified 09/01/22 13:24 duloxetine [From Cymbalta] AdvReac Intermediate made me Unverified 09/01/22 13:24 feel very weird linaclotide [From Linzess] AdvReac Mild Diarrhea Unverified 09/01/22 13:24 nicotine [From Nicorette] AdvReac Mild Nauseaous Unverified 09/01/22 13:24 adhesive tape AdvReac Unknown Skin Rash Unverified 09/01/22 13:24 adhesive AdvReac Topical Unverified 09/01/22 13:24 Irritation banana AdvReac abd Unverified 09/01/22 13:24 bloating codeine AdvReac sick Unverified 09/01/22 13:24 hydrocodone [From Vicodin] AdvReac cold Verified 09/01/22 13:24 sweats, vomiting black hair dye Allergy Intermediate Hives Uncoded 09/01/22 13:24 eggs Allergy bloating Uncoded 09/01/22 13:24 Home Medication Medication Instructions Recorded tiotropium bromide 18 mcg capsule 1 spray inhalation PRN PRN 11/06/15 with inhalation device (Spiriva with HandiHaler) ibuprofen 200 mg tablet (Ibuprofen 200 mg PO QID PRN PRN 09/18/15 IB) albuterol sulfate 2.5 mg/3 mL 2.5 mg inhalation Q4H PRN 06/26/19 (0.083 %) solution for nebulization albuterol sulfate 90 mcg/actuation 2 puff inhalation Q4-5H PRN 06/26/19 aerosol inhaler (ProAir HFA) pramipexole 0.125 mg tablet 0.125 mg PO DAILY 06/26/19 (Mirapex) fluticasone propionate 50 1 spray intranasal DAILY PRN 06/26/20 mcg/actuation nasal spray,suspension (Flonase Allergy Relief) oxycodone 10 mg tablet 10 mg PO QID PRN 08/28/20 sucralfate 1 gram tablet (Carafate) 1 g PO QACHS #120 tabs 09/27/20 omeprazole 40 mg capsule,delayed 40 mg PO DAILY #60 caps 11/27/20 release aspirin 81 mg tablet,delayed 81 mg PO DAILY 05/12/22 release docusate sodium 100 mg capsule 100 mg PO PRN PRN 05/12/22 (Colace) fluticasone 250 mcg-salmeterol 50 1 inh inhalation BID 05/12/22 mcg/dose blistr powdr for inhalation (Advair Diskus) fluticasone propionate 50 1 spray intranasal DAILY 05/12/22 mcg/actuation nasal spray,suspension (Flonase Allergy Relief) lactobacillus combination no.9 4 4,000 mmu cells PO DAILY 05/12/22 billion cell capsule (Adult 50 Plus Probiotic) umeclidinium 62.5 mcg/actuation 1 inh inhalation DAILY 05/12/22 blister powder for inhalation (Incruse Ellipta) Inhaler, Assist Devices [Pocket 1 ea miscellaneous DIRECTED ##0 05/18/22 Chamber] bupropion HCl 150 mg 24 hr tablet, 150 mg PO QAM #30 tabs 05/18/22 extended release dextromethorphan-guaifenesin 10 10 ml PO Q4H PRN PRN #0 mL 05/18/22 mg-100 mg/5 mL oral syrup gabapentin 100 mg capsule See Rx Instructions .Route 05/18/22 .COMPLEX #90 caps prednisone 20 mg tablet 40 mg PO DAILY #3 tabs 05/18/22 methylphenidate HCl 10 mg tablet 10 mg PO BID 06/18/22 naloxone 4 mg/actuation nasal 4 mg intranasal Q2M PRN 06/18/22 spray (Narcan) Current Visit Medications: Current Medications Generic Name Dose Route Start Last Admin Trade Name Freq PRN Reason Stop Dose Admin Iohexol 500 ml 09/01/22 14:15 09/01/22 14:04 Omnipaque 350 Mg/Ml 500 Ml Btl-Imaging Package IJ 10/01/22 23:59 100 ml DIRECTED KHANH Administration Sodium Chloride 50 ml 09/01/22 14:15 09/01/22 14:03 Normal Saline - Diluent 50 Ml Vial IJ 50 ml .FOR DI USE KHANH Administration Sodium Chloride 10 ml 09/01/22 14:04 09/01/22 14:04 Normal Saline Flush 10 Ml Syr IVP 10 ml PRN PRN Administration PFSH Active Problems Active Problems: Problem Status Onset Code COPD exacerbation J44.1 Duodenitis K29.80 Gastritis K29.70 GERD (gastroesophageal reflux disease) K21.9 Cervicalgia M54.2 Tendonitis of long head of biceps brachii of right shoulder M75.21 Degenerative arthritis of cervical spine M47.812 Arthritis of left glenohumeral joint M19.012 Seasonal allergic reaction J30.2 Constipation, chronic K59.09 Cervical spinal stenosis M48.02 Tobacco use Z72.0 Hyperlipidemia E78.5 COPD (chronic obstructive pulmonary disease) J44.9 Minimally displaced zone I fracture of sacrum, sequela S32.111S HPV (human papilloma virus) infection B97.7 IBS (irritable bowel syndrome) K58.9 Skin lesion L98.9 Edentulous K00.0 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 Low back pain M54.5 Lumbar radiculopathy M54.16 Abdominal pain R10.9 Abdominal bloating R14.0 Restless leg syndrome G25.81 Blood in stool K92.1 Hx of allergic reaction Z88.9 Closed fracture of right distal fibula S82.831A Shoulder pain M25.519 Trigger finger of all digits of both hands M65.321, M65.311, M65.312, M65.322, M65.331 Arthritis of right glenohumeral joint M19.011 No-show for appointment Z53.29 Spondylosis, cervical M47.812 Carpal tunnel syndrome, bilateral G56.03 Shoulder pain, bilateral M25.511, M25.512 Effusion of left knee M25.462 Situational depression Myalgia M79.10 Generalized osteoarthritis of multiple sites M15.9 Patellar tendinitis M76.50 Sinusitis J32.9 Mild memory disturbance R41.3 Rash, skin R21 Visit for screening mammogram Z12.31 Preventative health care Z00.00 Colonoscopy planned Frequency of urination R35.0 Eye irritation H57.89 Dysuria R30.0 Ankle joint disorder M19.079 Hypoglycemia E16.2 Cough R05 Sinusitis, acute J01.90 Medical History Medical History ADHD AGATHA III (cervical intraepithelial neoplasia III) COVID Diaphoresis Dyspnea Exposure to COVID-19 virus Grief reaction Hemangioma of liver Hematemesis History of paresthesia HPV (human papilloma virus) anogenital infection Liver lesion Nocturnal hypoxia Pneumonia Sleep apnea Supraclavicular lymphadenopathy Tendonitis Surgical History Surgical History Arthroscopy, Shoulder History of colonoscopy (~07/05/18) History of esophagogastroduodenoscopy (EGD) (~09/2020) S/P colonoscopy S/P tonsillectomy Trigger Finger release several Tobacco Smoking/Tobacco Use Status: Former Tobacco Use Alcohol Alcohol Intake: never Substance Use Substance use: Never Substance use type: does not use Vital Signs and Lab Results Lab Results 09/01/22 12:40 09/01/22 12:40 Blood Type / Crossmatch: No Data to Display Complete Blood Count: White Blood Count 15.72 10^3/uL (4.4-10.8) H 09/01/22 12:40 Red Blood Count 4.75 10^6/uL (3.93-5.22) 09/01/22 12:40 Hemoglobin 13.9 g/dL (11.2-15.7) 09/01/22 12:40 Hematocrit 42.9 % (36.0-46.0) 09/01/22 12:40 Platelet Count 351 10^3/uL (130-400) 09/01/22 12:40 Venous Blood Lactate 0.8 mmol/L (0.6-1.4) 09/01/22 14:25 Complete Metabolic Panel: Sodium 141 mmol/L (136-145) 09/01/22 12:40 Potassium 4.8 mmol/L (3.5-5.1) 09/01/22 12:40 Chloride 105 mmol/L (98-107) 09/01/22 12:40 Carbon Dioxide 31.6 mmol/L (21.0-32.0) 09/01/22 12:40 BUN 11 mg/dL (7-18) 09/01/22 12:40 Creatinine 1.0 mg/dL (0.55-1.02) 09/01/22 12:40 Est GFR (CKD-EPI 2020) 63.30 (mL/min/1.73m2) 09/01/22 12:40 Calcium 9.2 mg/dL (8.5-10.1) 09/01/22 12:40 Albumin 3.8 g/dL (3.4-5.0) 09/01/22 12:40 Glucose 95 mg/dL (74-106) 09/01/22 12:40 Liver Function Panel: Alanine Aminotransferase (ALT/SGPT) 25 U/L (14-59) 09/01/22 12:40 Aspartate Amino Transf (AST/SGOT) 15 U/L (15-37) 09/01/22 12:40 Coagulation Panel: No Data to Display Cardiac Panel: No Data to Display Arterial Blood Gas: No Data to Display Venous Blood Gas: No Data to Display Pancreas Panel: No Data to Display Thyroid Panel: No Data to Display Infectious Disease: Coronavirus (COVID-19)(PCR) Negative (Negative) 09/01/22 15:00 Coronavirus 2019 Source Nasal/Nares 09/01/22 15:00 Blood Cultures: No Data to Display Toxicology Panel: No Data to Display Imaging and Studies Imaging and Studies Study information below may be from another EMR and interpreted by another provider. Please see original notes in EMR for more complete details. EKG Summary: DATE/TIME OF SERVICE: 05/15/221829 : 1960PERFORMING LOCATION: [place] APPROVED REPORT Exam: Resting ECG Reason for Exam: dyspnea Patient Location: E HR:83 bpm ECG Measurements Heart Rate 83 AXIS AZ 159 P 49 QRSd 91 QRS 61 QT 382 T59 QTc 448 Conclusion Sinus rhythm...normal P axis, V-rate 60- 99 Normal [place] Normal Electrocardiogram Pulmonary Function Summary: Date of service: 06/15/22 Time of Service: 13:00 Pulmonary Function Test Result Requesting Provider Soraida Sims Indications: COPD Interpretation Spirometry: There is moderate airflow limitation. There is a significant bronchodilator response. Lung Volumes: There is air trapping Diffusion Capacity: Normal diffusion Airway Pressure: Increased airways resistance Impression Moderate airflow obstruction with air trapping, a normal diffusion and a significant bronchodilator response. In the correct clinical context this may likely represent COPD (chronic bronchitis) or asthma-COPD overlap syndrome. Clinical Correlation therefore is recommended. Anesthesia Assessment and Plan Anesthesia History Personal History: No History of Anesthesia Complications Family History: No Family History of Anesthesia Complications Exercise Tolerance Exercise Tolerance: Metabolic Equivalents>4 Pertinent Negatives Pertinent Negatives: No Symptoms of GERD and No Major Cardiovascular Symptoms or Complaints Cardiac & Pulmonary Exam Cardiac Exam: Normal S1/S2 Heart Sounds Pulmonary Exam: Clear Bilateral Breath Sounds Implantable Cardiac Device Does patient have a Pacemaker or an ICD?: No Airway Exam Known Difficult Airway: Yes Mallampati Class: 2 Mouth Opening: Normal (> 3cm) Thyromental Distance: Greater than 3 cm Neck Range of Motion: Full ROM Neck Circumference: Normal Teeth Condition: Removable Dentures/Plates Upper ASA Classification ASA Score: ASA 3 Emergency Case?: Yes NPO Status NPO Status: NPO Clears >2 hours, Solids >8 hours Anesthesia Plan Resuscitation Status: Full Code Anesthesia Technique: General Anesthesia Airway Planned: Endotracheal Tube Monitors Used: Standard Monitors Preoperative Comments:: Pt. denies any current nausea and no vomiting throughout today. Has not eaten with the exception of a few malt balls this morning, drank some cranberry juice earlier. Neck pain at times with paresthesia down between shoulder blades, but unable to specify a particular movement that causes this, will use glide and keep head as neutral as possible. Discussed likely need for epidural post op if open procedure, and possibility of arterial or central line. Given pulmonary history, discussed possible overnight ventilation in ICU, however I believe this to be a low risk for her.
[2022-09-01 15:39] LABS: COVID-19 PCR Negative (Negative)
--- NOTE | 2022-09-01 15:40 | HPE_ITS ---
Date of service: 09/01/22 Time of Service: 15:40 Assessment and Plan Assessment and plan (1) Perforated diverticulum of large intestine: Status: Acute Assessment and plan: cipro/flagyl to the or for diagnostic laparoscopy and washoaut/drain placement. If there is contamination in the peritoneum by stool then we will need to proceed with laparotomy and diversion of the colon; possible laparotomy and sigmoid resection and ostomy. Informed consent is obtained for the procedural (explained in simple layman's terms that the pt and/or family could understand) explaining risks vs benefits a nd alternatives to the procedure and consequences if we do not do the procedure. Risks include but are not limited to: bleeding, infections, pneumonia, blood clots/DVT/PE, anesthesia (aspiration, damage to teeth/airway/[place]/CVA//prolonged mechanical ventilation/PTX/IV infections), damage to bowel, bladder, blood vessels, ureters. . Damage to solid organs requiring removal. Infertility. Leakage from anastomosis requiring colostomy/ Wound infections requiring further surgery.?Scarring and disfigurement. Subsequent bowel obstructions from scar tissue.? Chronic pain or numbness from the incision, or hernia. Possible open procedure if minimally invasive procedure is being attempted. He may have colostomy. If we cannot remove the colon with this procedure and/or if we do a ostomy, then she will nee a second surgery for sigmoid resection and reanastomosis. She will be in the hospital roughly 5 days. She will require IV antibiotics. She is at high risk for pulmonary complications because of her COPD and history of smoking. She is at risk for wound complications because of her history of recent steroid use. Further recommendations to follow based on findings at the time of surgery. - (2) GERD (gastroesophageal reflux disease): Status: Chronic (3) Seasonal allergic reaction: Status: Acute (4) Constipation, chronic: Status: Acute (5) Cervical spinal stenosis: Status: Acute (6) Tobacco use: Status: Acute (7) Hyperlipidemia: Status: Acute (8) Minimally displaced zone I fracture of sacrum, sequela: Status: Acute (9) Edentulous: Status: Acute (10) Reactive inflammatory arthritis: Status: Acute (11) Restless leg syndrome: Status: Acute (12) ADHD: (13) Peritonitis: Status: Acute History of Present Illness Narrative: Patient is a 61-year-old female. She has been feeling poorly for approximately a week's duration. She was having a lot of pain and pressure on her bladder and that she had a UTI. She saw her PCP a couple days ago and had a urine done, but it was normal. Last night she had severe pain in the left lower quadrant. She had chills at home. She has not been able to eat. She has a history of COPD/br onchitis. She was in the hospital in May. She was on steroids in May. She has not been on them lately. She quit smoking in May. She has never had any abdominal surgeries before. She has had had significant amount of orthopedic surgeries. She has never had any problems with anesthesia. She has had a colonoscopy before at an outside hospital. Her CT today shows perforated diverticula with a significant amount of free air. She has obvious peritonitis on exam today. Vital signs- see Rn notes. We reviewed the risks and benefits and expectations. She will probably be in the hospital in 5 to 7 days. Possible laparotomy and possible colostomy. She is at high risk for pneumonia and respiratory complications because of her history of COPD. This also puts her at higher risk for postoperative infection/abscesses wound complications including hernia. She received Cipro and Flagyl in the ER. She will be admitted postoperatively. 60 mins spent with the patient today. Review of Systems All systems reviewed & are unremarkable except as noted in HPI and below Constitutional Comments: Significant for COPD and chronic cough. She has not been on prednisone since May. She denies having a heart attack or stroke. She is on aspirin daily but no other blood thinners. She has a history of reflux she has a significant history of. Arthritis and limited range of motion/chronic pain in her joints and extremities. She admitted to fever chills at home. Vital signs in the ER not available. She denies any nausea vomiting. she complains of severe abdominal pain in the left lower quadrant and suprapubic position and feels like she needs to urinate Urgenty she is. PFSH All Active Problems (Updated 09/01/22 @ 15:51 by Sheryl Tanner DO) Peritonitis (Acute) Perforated diverticulum of large intestine (Acute) COPD exacerbation (Acute) Duodenitis (Acute) Gastritis (Acute) GERD (gastroesophageal reflux disease) (Chronic) Cervicalgia (Acute) Tendonitis of long head of biceps brachii of right shoulder (Acute) Degenerative arthritis of cervical spine (Acute) Arthritis of left glenohumeral joint (Acute) Seasonal allergic reaction (Acute) Constipation, chronic (Acute) Cervical spinal stenosis (Acute) Tobacco use (Acute) Hyperlipidemia (Acute) COPD (chronic obstructive pulmonary disease) (Chronic) Minimally displaced zone I fracture of sacrum, sequela (Acute) HPV (human papilloma virus) infection (Acute) IBS (irritable bowel syndrome) (Chronic) Skin lesion (Acute) Edentulous (Acute) Reactive inflammatory arthritis (Acute) Low back pain (Acute) Lumbar radiculopathy (Acute) Abdominal pain (Acute) Abdominal bloating (Acute) Restless leg syndrome (Acute) Blood in stool (Acute) Hx of allergic reaction (Acute) Closed fracture of right distal fibula (Acute) Shoulder pain (Acute) Trigger finger of all digits of both hands (Acute) Arthritis of right glenohumeral joint (Acute) No-show for appointment (Acute) Spondylosis, cervical (Acute) Carpal tunnel syndrome, bilateral (Acute) Shoulder pain, bilateral (Acute) Effusion of left knee (Acute) Situational depression (Chronic) Myalgia (Acute) Generalized osteoarthritis of multiple sites (Acute) Patellar tendinitis (Acute) Sinusitis (Acute) Mild memory disturbance (Acute) Rash, skin (Acute) Visit for screening mammogram (Acute) Preventative health care (Acute) Colonoscopy planned (Acute) Frequency of urination (Acute) Eye irritation (Acute) Dysuria (Acute) Ankle joint disorder (Acute) Hypoglycemia (Acute) Cough (Acute) Sinusitis, acute (Acute) Medical History ADHD AGATHA III (cervical intraepithelial neoplasia III) COVID Diaphoresis Dyspnea Exposure to COVID-19 virus Grief reaction Hemangioma of liver Hematemesis History of paresthesia HPV (human papilloma virus) anogenital infection Liver lesion Nocturnal hypoxia Pneumonia Sleep apnea Supraclavicular lymphadenopathy Tendonitis Surgical History Arthroscopy, Shoulder History of colonoscopy (~07/05/18) History of esophagogastroduodenoscopy (EGD) (~09/2020) S/P colonoscopy S/P tonsillectomy Trigger Finger release several Family History Mother Personal history of malignant neoplasm uterine, mets to colon Social History Smoking/Tobacco Use Status: Former Tobacco Use Quit Date: 05/14/22 Smoking risk assessment performed?: Yes Alcohol Intake: never Drug use: Never Substance use type: does not use Current gender identity: female Do you feel safe at home: Yes Do you feel safe in your relationship?: Yes Meds Allergies and Home Medications Allergies Allergy/AdvReac Type Severity Reaction Status Date / Time cephalexin [Cephalexin] Allergy Intermediate Skin Rash Unverified 09/01/22 13:24 Penicillins Allergy Intermediate rash with Unverified 09/01/22 13:24 all cillins ampicillin Allergy Mild Skin Rash Unverified 09/01/22 13:24 cefprozil [From Cefzil] Allergy Mild Skin Rash Unverified 09/01/22 13:24 Cephalosporins Allergy Mild Hives Unverified 09/01/22 13:24 clindamycin Allergy Mild Skin Rash Unverified 09/01/22 13:24 doxycycline Allergy Mild Skin Rash Unverified 09/01/22 13:24 varenicline [From Chantix] Allergy Mild Unverified 09/01/22 13:24 amoxicillin Allergy Unknown Hives Unverified 09/01/22 13:24 acetaminophen Allergy Hives Verified 09/01/22 13:24 [From Mapap (acetaminophen)] clarithromycin [From Biaxin] Allergy rash/hives Unverified 09/01/22 13:24 duloxetine [From Cymbalta] AdvReac Intermediate made me Unverified 09/01/22 13:24 feel very weird linaclotide [From Linzess] AdvReac Mild Diarrhea Unverified 09/01/22 13:24 nicotine [From Nicorette] AdvReac Mild Nauseaous Unverified 09/01/22 13:24 adhesive tape AdvReac Unknown Skin Rash Unverified 09/01/22 13:24 adhesive AdvReac Topical Unverified 09/01/22 13:24 Irritation banana AdvReac abd Unverified 09/01/22 13:24 bloating codeine AdvReac sick Unverified 09/01/22 13:24 hydrocodone [From Vicodin] AdvReac cold Verified 09/01/22 13:24 sweats, vomiting black hair dye Allergy Intermediate Hives Uncoded 09/01/22 13:24 eggs Allergy bloating Uncoded 09/01/22 13:24 Home Medications Medication Instructions Recorded Confirmed Type tiotropium bromide 18 mcg capsule 1 spray inhalation PRN PRN 04/19/15 09/01/22 History with inhalation device (Spiriva with HandiHaler) ibuprofen 200 mg tablet (Ibuprofen 200 mg PO QID PRN PRN 09/18/15 09/01/22 History IB) albuterol sulfate 2.5 mg/3 mL 2.5 mg inhalation Q4H PRN 06/26/19 09/01/22 History (0.083 %) solution for nebulization albuterol sulfate 90 mcg/actuation 2 puff inhalation Q4-5H PRN 06/26/19 09/01/22 History aerosol inhaler (ProAir HFA) pramipexole 0.125 mg tablet 0.125 mg PO DAILY 06/26/19 09/01/22 History (Mirapex) fluticasone propionate 50 1 spray intranasal DAILY PRN 06/26/20 09/01/22 History mcg/actuation nasal spray,suspension (Flonase Allergy Relief) oxycodone 10 mg tablet 10 mg PO QID PRN 08/28/20 09/01/22 History sucralfate 1 gram tablet (Carafate) 1 g PO QACHS #120 tabs 09/27/20 09/01/22 Rx omeprazole 40 mg capsule,delayed 40 mg PO DAILY #60 caps 11/27/20 09/01/22 Rx release aspirin 81 mg tablet,delayed 81 mg PO DAILY 05/12/22 09/01/22 History release docusate sodium 100 mg capsule 100 mg PO PRN PRN 05/12/22 09/01/22 History (Colace) fluticasone 250 mcg-salmeterol 50 1 inh inhalation BID 05/12/22 09/01/22 History mcg/dose blistr powdr for inhalation (Advair Diskus) fluticasone propionate 50 1 spray intranasal DAILY 05/12/22 09/01/22 History mcg/actuation nasal spray,suspension (Flonase Allergy Relief) lactobacillus combination no.9 4 4,000 mmu cells PO DAILY 05/12/22 09/01/22 History billion cell capsule (Adult 50 Plus Probiotic) umeclidinium 62.5 mcg/actuation 1 inh inhalation DAILY 05/12/22 09/01/22 History blister powder for inhalation (Incruse Ellipta) Inhaler, Assist Devices [Pocket 1 ea miscellaneous DIRECTED ##0 05/18/22 09/01/22 Rx Chamber] bupropion HCl 150 mg 24 hr tablet, 150 mg PO QAM #30 tabs 05/18/22 09/01/22 Rx extended release dextromethorphan-guaifenesin 10 10 ml PO Q4H PRN PRN #0 mL 05/18/22 09/01/22 Rx mg-100 mg/5 mL oral syrup gabapentin 100 mg capsule See Rx Instructions .Route 05/18/22 09/01/22 Rx .COMPLEX #90 caps prednisone 20 mg tablet 40 mg PO DAILY #3 tabs 05/18/22 09/01/22 Rx methylphenidate HCl 10 mg tablet 10 mg PO BID 06/18/22 09/01/22 History naloxone 4 mg/actuation nasal 4 mg intranasal Q2M PRN 06/18/22 09/01/22 History spray (Narcan) Exam Const Other: PHYSICAL EXAM GENERAL APPEARANCE: Alert, healthy appearance, oriented, x 3,? in mild distress HYDRATION: Well hydrated HEAD, EYES, EARS, NECK, THROAT: Head is normocephalic, pupils equal, round, reactive to light and accommodation, ocular movement intact, sclera clear and no jaundice. ?edentulous. NECK: ? Trachea midline.? Neck supple.? No JVD LUNGS: normal respiration/normal chest excursion. ?Clear to auscultation bilaterally. ?No wheeze. ?HEART: Regular rate and rhythm. no murmurs EXTREMITY: No edema or cyanosis.? no leg pain, redness, swelling.? chronic pain. ABDOMEN: distended. She does have peritonitis. umbilical hernia+ no other prior abdominal surgery's. Results Labs 09/01/22 12:40 09/01/22 12:40 Labs: Laboratory Results - last 24 hr 09/01/22 09/01/22 09/01/22 12:40 12:40 12:40 WBC 15.72 H RBC 4.75 Hgb 13.9 Hct 42.9 MCV 90 MCH 29.3 MCHC 32.4 RDW 12.6 Plt Count 351 MPV 10.9 Immature Gran % 0.0 Neutrophils % 68.0 Band Neutrophils % 1 Lymphocytes % 22.0 Atypical Lymphs % 4 Monocytes % 5.0 Eosinophils % 0.0 Basophils % 0.0 Nucleated RBC % 0.0 Absolute Neutrophils 10.85 H Absolute Lymphocytes 4.09 H Absolute Monocytes 0.79 Absolute Eosinophils 0.00 Absolute Basophils 0.00 RBC Morphology Normal VBG Lactate Sodium 141 Potassium 4.8 Chloride 105 Carbon Dioxide 31.6 Anion Gap 4.4 BUN 11 Creatinine 1.0 Est GFR (CKD-EPI 2020) 63.30 Glucose 95 Calcium 9.2 Total Bilirubin 0.8 AST 15 ALT 25 Alkaline Phosphatase 75 Total Protein 8.0 Albumin 3.8 Urine Color Yellow Urine Clarity Clear Urine pH 5.5 Ur Specific [place] 1.015 Urine Protein Negative Urine Ketones Negative Urine Blood Negative Urine Nitrite Negative Urine Bilirubin Negative Urine Urobilinogen 0.2 Ur Leukocyte Esterase Trace Urine RBC Negative Urine WBC 3-5 Ur Epithelial Cells Rare Urine Crystals Negative Urine Bacteria Rare Urine Casts Negative Urine Mucus Trace Ur Culture Indicated? Yes Urine Glucose Negative COVID-19 Source 09/01/22 09/01/22 14:25 15:00 WBC RBC Hgb Hct MCV MCH MCHC RDW Plt Count MPV Immature Gran % Neutrophils % Band Neutrophils % Lymphocytes % Atypical Lymphs % Monocytes % Eosinophils % Basophils % Nucleated RBC % Absolute Neutrophils Absolute Lymphocytes Absolute Monocytes Absolute Eosinophils Absolute Basophils RBC Morphology VBG Lactate 0.8 Sodium Potassium Chloride Carbon Dioxide Anion Gap BUN Creatinine Est GFR (CKD-EPI 2020) Glucose Calcium Total Bilirubin AST ALT Alkaline Phosphatase Total Protein Albumin Urine Color Urine Clarity Urine pH Ur Specific [place] Urine Protein Urine Ketones Urine Blood Urine Nitrite Urine Bilirubin Urine Urobilinogen Ur Leukocyte Esterase Urine RBC Urine WBC Ur Epithelial Cells Urine Crystals Urine Bacteria Urine Casts Urine Mucus Ur Culture Indicated? Urine Glucose COVID-19 Source Nasal/Nares Time Spent Time spent with Patient: 55-74 minutes Time was spent: preparing to see the patient(eg.review tests), obtaining and/or reviewing separately otained hiistory, ordering medications,tests, procedures, referring, communicating with other health child care counselor, indepentently interpreting results, counseling the patient and care coordination
[2022-09-01] MEDS: Lactated Ringers 500 ML 30 ML IV (16:15)
[2022-09-01] MEDS: metroNIDAZOLE 500 MG/100 ML BAG 100 MG IVPB ×2 (16:48→23:55)
[2022-09-01] MEDS: Lidocaine 1% Pres-Free 30 ML VIAL (17:19)
--- NOTE | 2022-09-01 18:15 | W.ANESPOSTOP ---
Postoperative Evaluation Date, Time and Location Date Performed: 09/01/22 Time Performed: 18:10 Patient Location: PACU Vital Signs Most Recent Imported Vital Signs: Most Recent Vital Signs Temp Pulse Resp BP Pulse Ox 37.2 C 82 16 134/74 93 09/01/22 17:58 09/01/22 17:58 09/01/22 17:58 09/01/22 17:58 09/01/22 17:58 Pain Score Most Recent Pain Score: Most Recent Pain Score Pain Level 2 09/01/22 17:58 Assessment Mental Status: Awake (Alert & Oriented to Patient Baseline) Airway and Respiratory Function: Patent airway with normal (patient baseline) respiratory exam Cardiovascular Function: Hemodynamically Stable Hydration Status: Adequately Hydrated Nausea & Vomiting: No Nausea or Vomiting Pain: Pain is tolerable per patient Peripheral Nerve Block: Patient did not receive a nerve block
[2022-09-01] MEDS: MORPHine 2 MG/ML SYR IVP ×2 (18:50→21:31)
--- NOTE | 2022-09-01 19:05 | ROE_ITS ---
Date of service: 09/01/22 Time of Service: 19:05 Operative Note Operative Note DATE OF PROCEDURE: 09/01/22 PRE-OP DIAGNOSIS: Peritonitis/perforated diverticulum POST-OP DIAGNOSIS: same PROCEDURE: Diagnostic laparoscopy /abdominal washout drain placement// SURGEON: Sheryl Mims ASSEMBLY MACHINE SET UP MECHANIC: Margaret Cid ANESTHESIA TYPE: Local By Surgeon and General LMA/ETT Refer to Anesthesia Record ESTIMATED BLOOD LOSS: 5 PATHOLOGY: none sent COMPLICATIONS: None Patient was transported to: PACU Patient's condition: stable Procedure Description: INDICATIONS: The patient has signs and symptoms of peritonitis on exam, free air on CT, and suspected perforated diverticulitis. SHe and is brought to the OR for laparoscopic washout and drain placement versus laparotomy and diverting ostomy possible possible sigmoid colectomy. Informed consent is obtained for the procedural (explained in simple layman's terms that the pt and/or family could understand) explaining risks vs benefits and alternatives to the procedure and consequences if we do not do the procedure. Risks include but are not limited to:bleeding,infections, pneumonia, blood clots/DVT/PE, anesthesia(aspiration, damage to teeth/airway/[place]/CVA//prolonged mechanical ventilation/PTX/IV infections), damage to bowel, bladder,blood vessels, ureters. Damage to solid organs requiring removal. Leakage from anastomosis requiring colostomy. Wound infections requirng further surgery. Scarring and disfigurement. Subsequent bowel obstructions from scar tissue. Possible open procedure if minimaly invsive procedure is being attempted. Abscess and stump appendicitis as well as others. Possible colostomy. This wound to cover a second surgery for ostomy takedown and sigmoid resection if it is not risks amendable to resection at this time. DESCRIPTION OF PROCEDURE: The patient was brought to the operating room suite and placed in supine position. Anesthesia was administered per the Department of Anesthesia. A Saenz catheter and OG tube are placed. The patient was prepped and draped in the usual sterile fashion using ChloraPrep scrub solution. Pause for the cause was done. 30 mL of 1% buffered was used for local anesthetization. A stab incision was made in the umbilicus and the Veress was inserted. Drop test was positive and insufflation was begun. When 15 mm of pressure was noted on the monitor, the Veress was removed, a #5 port inserted. Camera inserted through the port shows no damage to underlying structures. Bowel, liver and stomach that are visualized are normal in appearance. A 5 port was then placed 3 below the umbilicus under direct visualization following creation of a local field block as well as a second 5 mm port in the LUQ. The sigmoid colon is evaluated. In the mid sigmoid colon, on the antimesenteric border, there is an area of erythema and induration. There is a large appendiceal epiploicae that is adhered up onto the sigmoid colon. I did not take this appendage down. This does appear to be a localized area of infection and the most likely area of perforation. The patient was then placed into steep Trendelenburg. Both tubes and ovaries are atrophied and appear normal for age. Uterus is atrophied. The rectosigmoid colon appears normal. There are no adhesions in the pelvis. There is no signs of any carcinoma in the pelvis. There is no purulent drainage or discharge in the pelvis. There is no erythema or edema. The appendix is then evaluated. This is normal in appearance there is no edema or redness. There is a scant amount of purulent drainage along the right gutter-less than 5 cc. This is irrigated and evacuated. The liver edges are blunted, and the liver has a nutmeg appearance to it, with possible chronic congestion. The gallbladder appears normal. There is no edema or inflammation surrounding it. The stomach appears grossly normal there are no fluid collections around the stomach. The entirety of the colon and its mesentery is examined from the rectosigmoid sigmoid upper left colon transverse colon right colon cecum, appendix, and terminal ileum. There is some free air trapped in the omentum. The transverse colon is visualized and appears normal pink and healthy and normal vascular pattern. There is no fluid collections. The small bowel is run. This appears normal. There are no fluid collections within the mesentery. The mesentery appears healthy. A 15 mm round drain is then placed through the infraumbilical 5 mm port and placed into the pelvis and along the left gutter. The scope and ports are removed. Pneumoperitoneum is evacuated. There was no bleeding from the port sites as when they removed and the pneumoperitoneum evacuated. The wounds were copiously irrigated and closed in 2 layers with 4-0 Monocryl.? Skin glue is used.? Sterile dressings are applied. The patient tolerated the procedure without complication, transferred to the recovery room in stable condition. Patient will be admitted for IV antibiotics, and pain management. Family was apprised of patient condition. SHERYL MIMS DO
[2022-09-01] MEDS: Lactated Ringers 1,000 ML 75 ML IV (20:15)
[2022-09-01] MEDS: Pantoprazole 40 MG VIAL IVP (20:17)
[2022-09-01] MEDS: Enoxaparin 40 MG/0.4 ML SYR SC (20:18)
[2022-09-01] MEDS: Methylphenidate 10 MG TAB PO (21:12)
[2022-09-01] MEDS: Ketorolac 15 MG/ML VIAL IVP (22:29)
[2022-09-02] MEDS: ACETAMINOPHEN 1,000 MG/100 ML BTL 400 MG IVPB ×4 (00:46→23:27)
[2022-09-02] MEDS: CIPROFLOXACIN 400 MG/200 ML BAG 200 MG IVPB ×2 (02:21→14:34)
[2022-09-02] MEDS: Lactated Ringers 1,000 ML 75 ML IV ×2 (02:22→20:46)
[2022-09-02] MEDS: MORPHine 2 MG/ML SYR IVP ×4 (02:24→07:57)
[2022-09-02] MEDS: Normal Saline Flush 10 ML SYR IVP ×6 (02:24→23:26)
[2022-09-02] MEDS: Ketorolac 15 MG/ML VIAL IVP ×4 (03:42→22:13)
[2022-09-02 06:59] LABS: Abs Immature Grans 0.07 10^3/uL (0.0-0.06); Absolute Basophil Count 0.03 10^3/uL (0.0-0.2); Absolute Lymphocyte Count 1.46 10^3/uL (1.2-3.4); Absolute Monocyte Count 1.19 10^3/uL (0.1-0.8); Basophils % 0.2; HCT 38.3 % (36.0-46.0); HGB 12.7 g/dL (11.2-15.7); Immature Grans % 0.4; Lymphocytes % 8.8; MCH 29.4 pg (27.0-33.0); MCHC 33.2 % (32.0-36.0); MCV 89 fL (80-95); MPV 10.9 fL (8.0-11.0); Monocytes % 7.2; Neutrophils % 83.4; Platelet Count 308 10^3/uL (130-400); RBC 4.32 10^6/uL (3.93-5.22); RDW 12.4 % (11.7-14.6); RDW-SD 40.6 fL; WBC 16.55 10^3/uL (4.4-10.8)
[2022-09-02 07:15] LABS: C-Reactive Protein 8.11 mg/dL (0.0-0.3)
[2022-09-02 07:18] LABS: Anion Gap 6.1 mmol/L (3-11); BUN 12 mg/dL (7-18); CO2 27.9 mmol/L (21.0-32.0); Calcium 8.7 mg/dL (8.5-10.1); Chloride 109 mmol/L (98-107); Glucose 127 mg/dL (74-106); Potassium 4.1 mmol/L (3.5-5.1); Sodium 143 mmol/L (136-145)
[2022-09-02 07:24] VITALS: BP 129/77; PULSE 77; RESP 17; TEMP 36.4; O2SAT 94
[2022-09-02] MEDS: Pramipexole 0.25 MG TAB 0.125 MG PO (08:00)
[2022-09-02] MEDS: buPROPion-XL 150 MG TABCR PO (08:00)
[2022-09-02] MEDS: Gabapentin 100 MG CAP PO ×2 (08:00→12:20)
[2022-09-02] MEDS: Methylphenidate 10 MG TAB PO ×2 (08:00→16:58)
[2022-09-02] MEDS: HYDROmorphone 2 MG/ML SYR 1 MG IVP ×5 (08:49→23:26)
[2022-09-02] MEDS: Simethicone 80 MG CHEW 40 MG PO ×4 (08:49→22:14)
[2022-09-02] MEDS: metroNIDAZOLE 500 MG/100 ML BAG 100 MG IVPB ×2 (08:50→16:58)
--- NOTE | 2022-09-02 09:00 | INITIAL_ITS ---
- If Service Date Differs Date of service: 09/02/22 Time of Service: 09:01 Care Management Initial Assess REASON FOR HOSPITALIZATION:: Perforated diverticulum PAST MEDICAL HISTORY/PAST SURGICAL HISTORY:: All Active Problems (Updated 09/01/22 @ 15:51 by Sheryl Tanner DO). Peritonitis (Acute). Perforated diverticulum of large intestine (Acute). COPD exacerbation (Acute). Duodenitis (Acute). Gastritis (Acute). GERD (gastroesophageal reflux disease) (Chronic). Cervicalgia (Acute). Tendonitis of long head of biceps brachii of right shoulder (Acute). Degenerative arthritis of cervical spine (Acute). Arthritis of left glenohumeral joint (Acute). Seasonal allergic reaction (Acute). Constipation, chronic (Acute). Cervical spinal stenosis (Acute). Tobacco use (Acute). Hyperlipidemia (Acute). COPD (chronic obstructive pulmonary disease) (Chronic). Minimally displaced zone I fracture of sacrum, sequela (Acute). HPV (human papilloma virus) infection (Acute). IBS (irritable bowel syndrome) (Chronic). Skin lesion (Acute). Edentulous (Acute). Reactive inflammatory arthritis (Acute). Low back pain (Acute). Lumbar radiculopathy (Acute). Abdominal pain (Acute). Abdominal bloating (Acute). Restless leg syndrome (Acute). Blood in stool (Acute). Hx of allergic reaction (Acute). Closed fracture of right distal fibula (Acute). Shoulder pain (Acute). Trigger finger of all digits of both hands (Acute). Arthritis of right glenohumeral joint (Acute). No-show for appointment (Acute). Spondylosis, cervical (Acute). Carpal tunnel syndrome, bilateral (Acute). Shoulder pain, bilateral (Acute). Effusion of left knee (Acute). Situational depression (Chronic). Myalgia (Acute). Generalized osteoarthritis of multiple sites (Acute). Patellar tendinitis (Acute). Sinusitis (Acute). Mild memory disturbance (Acute). Rash, skin (Acute). Visit for screening mammogram (Acute). Preventative health care (Acute). Colonoscopy planned (Acute). Frequency of urination (Acute). Eye irritation (Acute). Dysuria (Acute). Ankle joint disorder (Acute). Hypoglycemia (Acute). Cough (Acute). Sinusitis, acute (Acute). Medical History . ADHD. AGATHA III (cervical intraepithelial neoplasia III). COVID. Diaphoresis. Dyspnea. Exposure to COVID-19 virus. Grief reaction. Hemangioma of liver. Hematemesis. History of paresthesia. HPV (human papilloma virus) anogenital infection. Liver lesion. Nocturnal hypoxia. Pneumonia. Sleep apnea. Supraclavicular lymphadenopathy. Tendonitis. Surgical History . Arthroscopy, Shoulder. History of colonoscopy (~07/05/18). History of esophagogastroduodenoscopy (EGD) (~09/2020). S/P colonoscopy. S/P tonsillectomy. Trigger Finger release. several PREVIOUS FUNCTIONAL STATUS/SOCIAL/FAMILY SUPPORTS:: Montserrat lives in a single family home in [place] with her daughter Dodie, 2 sons and a granddaughter. She is disabled but is independent at baseline. Montserrat does not receive any services at home. CURRENT FUNCTIONAL STATUS:: Montserrat was sitting up in bed visiting with her daughter when CM met with her. She was pleasant and engaged easily with CM, known to her from a previous hospital stay.montserrat stateds that she is feeling better than when she came to the hospital and is pleased that her surgery was not more extensive. She has started a clear liquid diet and is tolerating it well. Has patient been provided with info about the portal/API?: Yes Did the patient sign up for the portal?: Yes (previously) CODE STATUS:: Full Code INSURANCE COVERAGE / FINANCIAL ISSUES:: Medicaid CURRENT HOME/COMMUNITY SERVICES/EQUIPMENT:: none PRIMARY CARE PHYSICIAN:: Soraida Sims POTENTIAL DISCHARGE NEEDS:: Follow up wiith PCP and plan of care PATIENT/FAMILY EDUCATION NEEDS:: Review of discharge instructions, limitations, activity, ostomy care, medications, diet, follow up plan, discuss Ask Me Three. TRANSPORTATION:: via private vehicle with friends/family PLAN:: Anticipate Montserrat will be discharged home with no new services when medically cleared. She will follow up with her community providers and plan of care and transport with her daughter, CM will follow and assess for discharge concerns.
[2022-09-02] MEDS: Budesonide/Formoterol 160/4.5 6 GM 60 PUFF INH IH ×2 (09:07→20:04)
[2022-09-02] MEDS: Umeclidinium 7 CAP INHALER IH (09:07)
--- NOTE | 2022-09-02 09:29 | PGE_ITS ---
Date of Service Date of service: 09/02/22 Time of Service: 08:00 Assessment and Plan Assessment and plan (1) Perforated diverticulum of large intestine: Status: Acute Assessment and plan: Postop day #1 status post exploratory laparoscopy secondary to peritonitis and perforated diverticulum. Abdominal washout was performed and a drain was placed. He continues to have significant abdominal discomfort, this morning she is describing this as gas pain. Placed an order for simethicone to see if this improves her symptoms. Morphine was also switched to Dilaudid to see if this would improve pain control. Continue IV Cipro and Flagyl Will DC NG tube given minimal output overnight. She may have clear liquids Encouraged activity out of bed, sitting in the chair and ambulation Saenz in place White count slightly elevated more so than yesterday, which may be secondary to her surgery we will continue to monitor closely. Plan//continue IV antibiotics and work on improving pain control. Significant emphasis on increased activity was relayed to the patient. Patient seen and examined She is more comfortable this afternoon I switched from Morphine to Dilauded NG tube is out She is passing flatus Exam: ABDO- soft, mildly TTP, no guarding, good BS P: D/C Saenz Start on Clear liquids continue antibiotics (2) GERD (gastroesophageal reflux disease): Status: Chronic (3) Seasonal allergic reaction: Status: Acute (4) Constipation, chronic: Status: Acute (5) Cervical spinal stenosis: Status: Acute (6) Tobacco use: Status: Acute (7) Hyperlipidemia: Status: Acute (8) Minimally displaced zone I fracture of sacrum, sequela: Status: Acute (9) Edentulous: Status: Acute (10) Reactive inflammatory arthritis: Status: Acute (11) Restless leg syndrome: Status: Acute (12) ADHD: (13) Peritonitis: Status: Acute Subjective Subjective Interval history since last seen: Arrived with patient lying in bed. She has writhing in pain describing that she is having gas pain. Just expresses discomfort associate with the NG tube and would like this removed. Both patient and the nurse reports that the she has been passing flatus. Exam Const General: cooperative, healthy appearing and comfortable Orientation: alert and oriented x3 Resp Effort & Inspection: normal respiratory effort, no audible wheezes and no cough GI Inspection: distended Palpation: soft, guarding and tender Auscultation: normal bowel sounds Objective Last Vital Signs Temp 36.4 C L 09/02/22 07:24 Pulse 77 09/02/22 07:24 Resp 17 09/02/22 07:24 BP 129/77 09/02/22 07:24 Pulse Ox 94 09/02/22 07:24 Laboratory Results - last 24 hr 09/01/22 09/01/22 09/01/22 12:40 12:40 12:40 WBC 15.72 H RBC 4.75 Hgb 13.9 Hct 42.9 MCV 90 MCH 29.3 MCHC 32.4 RDW 12.6 Plt Count 351 MPV 10.9 Immature Gran % 0.0 Neutrophils % 68.0 Band Neutrophils % 1 Lymphocytes % 22.0 Atypical Lymphs % 4 Monocytes % 5.0 Eosinophils % 0.0 Basophils % 0.0 Nucleated RBC % 0.0 Absolute Neutrophils 10.85 H Absolute Lymphocytes 4.09 H Absolute Monocytes 0.79 Absolute Eosinophils 0.00 Absolute Basophils 0.00 RBC Morphology Normal VBG Lactate Sodium 141 Potassium 4.8 Chloride 105 Carbon Dioxide 31.6 Anion Gap 4.4 BUN 11 Creatinine 1.0 Est GFR (CKD-EPI 2020) 63.30 Glucose 95 Calcium 9.2 Magnesium Total Bilirubin 0.8 AST 15 ALT 25 Alkaline Phosphatase 75 C-Reactive Protein Total Protein 8.0 Albumin 3.8 Urine Color Yellow Urine Clarity Clear Urine pH 5.5 Ur Specific [place] 1.015 Urine Protein Negative Urine Ketones Negative Urine Blood Negative Urine Nitrite Negative Urine Bilirubin Negative Urine Urobilinogen 0.2 Ur Leukocyte Esterase Trace Urine RBC Negative Urine WBC 3-5 Ur Epithelial Cells Rare Urine Crystals Negative Urine Bacteria Rare Urine Casts Negative Urine Mucus Trace Ur Culture Indicated? Yes Urine Glucose Negative COVID-19 Source SARS-CoV-2 (PCR) 09/01/22 09/01/22 09/02/22 14:25 15:00 06:45 WBC RBC Hgb Hct MCV MCH MCHC RDW Plt Count MPV Immature Gran % Neutrophils % Band Neutrophils % Lymphocytes % Atypical Lymphs % Monocytes % Eosinophils % Basophils % Nucleated RBC % Absolute Neutrophils Absolute Lymphocytes Absolute Monocytes Absolute Eosinophils Absolute Basophils RBC Morphology VBG Lactate 0.8 Sodium Potassium Chloride Carbon Dioxide Anion Gap BUN Creatinine Est GFR (CKD-EPI 2020) Glucose Calcium Magnesium 2.0 Total Bilirubin AST ALT Alkaline Phosphatase C-Reactive Protein 8.11 H Total Protein Albumin Urine Color Urine Clarity Urine pH Ur Specific [place] Urine Protein Urine Ketones Urine Blood Urine Nitrite Urine Bilirubin Urine Urobilinogen Ur Leukocyte Esterase Urine RBC Urine WBC Ur Epithelial Cells Urine Crystals Urine Bacteria Urine Casts Urine Mucus Ur Culture Indicated? Urine Glucose COVID-19 Source Nasal/Nares SARS-CoV-2 (PCR) Negative 09/02/22 09/02/22 06:45 06:45 WBC 16.55 H RBC 4.32 Hgb 12.7 Hct 38.3 MCV 89 MCH 29.4 MCHC 33.2 RDW 12.4 Plt Count 308 MPV 10.9 Immature Gran % 0.4 Neutrophils % 83.4 Band Neutrophils % Lymphocytes % 8.8 Atypical Lymphs % Monocytes % 7.2 Eosinophils % 0.0 Basophils % 0.2 Nucleated RBC % 0.0 Absolute Neutrophils 13.80 H Absolute Lymphocytes 1.46 Absolute Monocytes 1.19 H Absolute Eosinophils 0.00 Absolute Basophils 0.03 RBC Morphology VBG Lactate Sodium 143 Potassium 4.1 Chloride 109 H Carbon Dioxide 27.9 Anion Gap 6.1 BUN 12 Creatinine 1.0 Est GFR (CKD-EPI 2020) 63.30 Glucose 127 H Calcium 8.7 Magnesium Total Bilirubin AST ALT Alkaline Phosphatase C-Reactive Protein Total Protein Albumin Urine Color Urine Clarity Urine pH Ur Specific [place] Urine Protein Urine Ketones Urine Blood Urine Nitrite Urine Bilirubin Urine Urobilinogen Ur Leukocyte Esterase Urine RBC Urine WBC Ur Epithelial Cells Urine Crystals Urine Bacteria Urine Casts Urine Mucus Ur Culture Indicated? Urine Glucose COVID-19 Source SARS-CoV-2 (PCR) Time Spent with Patient Time Spent with Patient: <25 minutes Time was spent: counseling the patient
[2022-09-02 11:26] VITALS: RESP 20; O2SAT 94
[2022-09-02 15:28] VITALS: BP 115/68; PULSE 71; RESP 17; TEMP 36.6; O2SAT 96
[2022-09-02] MEDS: Pantoprazole 40 MG VIAL IVP (18:27)
[2022-09-02] MEDS: Enoxaparin 40 MG/0.4 ML SYR SC (20:03)
[2022-09-03] MEDS: metroNIDAZOLE 500 MG/100 ML BAG 100 MG IVPB ×3 (00:17→15:31)
[2022-09-03 00:36] VITALS: BP 121/71; PULSE 68; RESP 16; TEMP 36.5; O2SAT 96
[2022-09-03] MEDS: CIPROFLOXACIN 400 MG/200 ML BAG 200 MG IVPB ×2 (02:45→13:51)
[2022-09-03] MEDS: Ketorolac 15 MG/ML VIAL IVP ×4 (04:40→21:05)
[2022-09-03 07:02] LABS: Abs Immature Grans 0.04 10^3/uL (0.0-0.06); Absolute Basophil Count 0.03 10^3/uL (0.0-0.2); Absolute Eosinophil Count 0.31 10^3/uL (0.0-0.7); Absolute Monocyte Count 1.07 10^3/uL (0.1-0.8); Basophils % 0.3; Eosinophils % 2.8; HCT 35.6 % (36.0-46.0); HGB 11.8 g/dL (11.2-15.7); Immature Grans % 0.4; Lymphocytes % 25.2; MCH 29.5 pg (27.0-33.0); MCHC 33.1 % (32.0-36.0); MCV 89 fL (80-95); MPV 10.8 fL (8.0-11.0); Monocytes % 9.6; Neutrophils % 61.7; Platelet Count 287 10^3/uL (130-400); RDW 12.6 % (11.7-14.6); RDW-SD 41.6 fL; WBC 11.17 10^3/uL (4.4-10.8)
[2022-09-03 07:03] LABS: Absolute Lymphocyte Count 2.81 10^3/uL (1.2-3.4); Absolute Neutrophil Count 6.89 10^3/uL (1.2-6.7)
[2022-09-03 07:23] LABS: ALT 19 U/L (14-59); AST 12 U/L (15-37); Albumin 2.8 g/dL (3.4-5.0); Alkaline Phosphatase 51 U/L (46-116); Anion Gap 8.1 mmol/L (3-11); BUN 13 mg/dL (7-18); Bilirubin, Total 0.7 mg/dL (0.2-1.0); CO2 26.9 mmol/L (21.0-32.0); Calcium 8.4 mg/dL (8.5-10.1); Chloride 107 mmol/L (98-107); Glucose 98 mg/dL (74-106); Potassium 3.5 mmol/L (3.5-5.1); Sodium 142 mmol/L (136-145); Total Protein 6.1 g/dL (6.4-8.2)
[2022-09-03 07:31] VITALS: BP 137/77; PULSE 70; RESP 20; TEMP 36.5; O2SAT 96
[2022-09-03] MEDS: ACETAMINOPHEN 1,000 MG/100 ML BTL 400 MG IVPB ×2 (07:58→15:32)
--- NOTE | 2022-09-03 08:55 | PDOC.CMPRO ---
- If Service Date Differs Date of service: 09/03/22 Time of Service: 08:55 Care Management Progress Note S/O:Afsaneh was sitting up in bed when CM met with her. When asked how she was doing she responded ok, although she was grimacing. When asked she admitted she had some pain but declined to ask for pain medication at that time. She informed CM that she believes it may be due in part to gas. Afsaneh is still on a liquid diet and stated that she is tolerating it well. CM provided Afsaneh with a blank copy of the [place] AD forms at her request. If she is feeling better tomorrow, CM will assist with their completion, otherwise Afsaneh informed CM she will bring them home and fill them out with her daughter. A:Afsaneh is a 61 year old woman admitted on 09/01/22 with a perforated diverticula. P:Anticipate Afsaneh will be discharged home with no new services when medically cleared. She will follow up with her community providers and plan of care and transport with her daughter, CM will follow and assess for discharge concerns.
[2022-09-03] MEDS: Umeclidinium 7 CAP INHALER IH (09:07)
[2022-09-03] MEDS: Budesonide/Formoterol 160/4.5 6 GM 60 PUFF INH IH ×2 (09:07→18:39)
[2022-09-03] MEDS: Gabapentin 100 MG CAP PO ×2 (09:18→12:48)
[2022-09-03] MEDS: Simethicone 80 MG CHEW 40 MG PO ×4 (09:19→21:06)
[2022-09-03] MEDS: Pramipexole 0.25 MG TAB 0.125 MG PO (09:19)
[2022-09-03] MEDS: HYDROmorphone 2 MG/ML SYR 1 MG IVP ×2 (09:53→12:54)
[2022-09-03] MEDS: Lactated Ringers 1,000 ML 75 ML IV (13:50)
[2022-09-03] MEDS: Methylphenidate 10 MG TAB PO (13:51)
[2022-09-03] MEDS: Normal Saline Flush 10 ML SYR IVP ×3 (15:31→21:06)
[2022-09-03 15:34] VITALS: BP 162/82; PULSE 78; RESP 24; TEMP 37; O2SAT 92
[2022-09-03] MEDS: Pantoprazole 40 MG VIAL IVP (17:21)
[2022-09-03] MEDS: Enoxaparin 40 MG/0.4 ML SYR SC (17:22)
[2022-09-03] MEDS: oxyCODONE 10 MG TAB PO (18:39)
[2022-09-03 20:26] VITALS: BP 100/63; PULSE 90; RESP 24; TEMP 37.4; O2SAT 93
--- NOTE | 2022-09-03 20:32 | W.PM.PROGNOT ---
Date of Service Date of service: 09/03/22 Time of Service: 15:10 Assessment and Plan Assessment and plan (1) Diverticulitis of intestine with perforation: Status: Acute Assessment and plan: I think Afsaneh is doing pretty well after laparoscopic washout and drainage for perforated diverticulitis. I will advance her diet today. I will switch over the intravenous Dilaudid to enteral oxycodone at her regular home dose. I told her I think we will switch the antibiotics over tomorrow assuming that she remains afebrile and her labs are reassuring. Subjective Subjective Interval history since last seen: Afsaneh has been doing pretty well today. She is up and sitting in the chair. She was ambulating around the hallway. She has an increase in her appetite. She does tell me that she has been experiencing a little more abdominal pain with her moving around. Exam GI Other: Her abdomen is soft, mildly distended. The incisions are all clean. She has a mild amount of tenderness that seems appropriate to the condition. Objective Last Vital Signs Temp 99.3 F 09/03/22 20:26 Pulse 90 09/03/22 20:26 Resp 24 09/03/22 20:26 BP 100/63 09/03/22 20:26 Pulse Ox 93 09/03/22 20:26 Laboratory Results - last 24 hr 09/03/22 09/03/22 06:50 06:50 WBC 11.17 H RBC 4.00 Hgb 11.8 Hct 35.6 L MCV 89 MCH 29.5 MCHC 33.1 RDW 12.6 Plt Count 287 MPV 10.8 Immature Gran % 0.4 Neutrophils % 61.7 Lymphocytes % 25.2 Monocytes % 9.6 Eosinophils % 2.8 Basophils % 0.3 Nucleated RBC % 0.0 Absolute Neutrophils 6.89 H Absolute Lymphocytes 2.81 Absolute Monocytes 1.07 H Absolute Eosinophils 0.31 Absolute Basophils 0.03 Sodium 142 Potassium 3.5 Chloride 107 Carbon Dioxide 26.9 Anion Gap 8.1 BUN 13 Creatinine 1.0 Est GFR (CKD-EPI 2020) 63.30 Glucose 98 Calcium 8.4 L Total Bilirubin 0.7 AST 12 L ALT 19 Alkaline Phosphatase 51 Total Protein 6.1 L Albumin 2.8 L Time Spent with Patient Time Spent with Patient: 25-34 minutes Time was spent: preparing to see the patient(eg.review tests), ordering medications,tests, procedures and counseling the patient
[2022-09-04] MEDS: oxyCODONE 10 MG TAB PO ×2 (01:03→08:49)
[2022-09-04] MEDS: ACETAMINOPHEN 1,000 MG/100 ML BTL 400 MG IVPB (01:05)
[2022-09-04 01:15] VITALS: BP 149/89; PULSE 97; RESP 18; TEMP 38.5; O2SAT 95
[2022-09-04] MEDS: metroNIDAZOLE 500 MG/100 ML BAG 100 MG IVPB ×3 (01:56→15:26)
[2022-09-04 02:27] VITALS: TEMP 38
[2022-09-04] MEDS: Normal Saline Flush 10 ML SYR IVP ×2 (03:56→04:14)
[2022-09-04] MEDS: HYDROmorphone 2 MG/ML SYR 0.4 MG IVP ×2 (03:57→17:46)
[2022-09-04] MEDS: CIPROFLOXACIN 400 MG/200 ML BAG 200 MG IVPB ×2 (04:01→14:01)
[2022-09-04] MEDS: Ketorolac 15 MG/ML VIAL IVP ×4 (04:13→21:52)
[2022-09-04 06:39] LABS: Abs Immature Grans 0.05 10^3/uL (0.0-0.06); Absolute Basophil Count 0.04 10^3/uL (0.0-0.2); Absolute Eosinophil Count 0.41 10^3/uL (0.0-0.7); Absolute Lymphocyte Count 1.96 10^3/uL (1.2-3.4); Absolute Neutrophil Count 9.72 10^3/uL (1.2-6.7); Basophils % 0.3; HCT 36.6 % (36.0-46.0); HGB 11.7 g/dL (11.2-15.7); Immature Grans % 0.4; Lymphocytes % 14.4; MCH 29.1 pg (27.0-33.0); MCV 91 fL (80-95); MPV 10.6 fL (8.0-11.0); Monocytes % 10.6; Neutrophils % 71.3; Platelet Count 317 10^3/uL (130-400); RBC 4.02 10^6/uL (3.93-5.22); RDW 12.6 % (11.7-14.6); WBC 13.63 10^3/uL (4.4-10.8)
[2022-09-04 06:49] LABS: Absolute Monocyte Count 1.44 10^3/uL (0.1-0.8)
--- NOTE | 2022-09-04 06:52 | PGE_ITS ---
Date of Service Date of service: 09/04/22 Time of Service: 06:52 Assessment and Plan Assessment and plan (1) Diverticulitis of intestine with perforation: Status: Acute Assessment and plan: I backed her diet back down overnight, and I think we will keep it there this morning. I am waiting for the white blood cell count from this morning. We will also have to see how her temperature trends through the morning time. Hopefully this is just some mild evolution of the diverticulitis, and the drain will help keep it evacuated. If she has much of a fever through today, or significant leukocytosis, then it may be worth repeating the CAT scan, but this will also be a little bit complicated by her recent laparoscopy. I will plan to keep her on the intravenous antibiotics as well today. Subjective Subjective Interval history since last seen: Afsaneh had some increased pain in her lower pelvis overnight, as well as low- grade fever. Vital signs otherwise remained stable. She continues to complain of a little more pain today compared to yesterday. Exam GI Other: Her abdomen is soft, and ammonia still operator in the suprapubic region, and a may be a little more on the left side compared to the right side. She is also little bit more distended today. Character of her drain is slightly more purulent within the drainage tubing compared to yesterday, but the rest of the effluent is still fairly serous Objective Last Vital Signs Temp 100.4 F H 09/04/22 02:27 Pulse 97 H 09/04/22 01:15 Resp 18 09/04/22 01:15 BP 149/89 H 09/04/22 01:15 Pulse Ox 95 09/04/22 01:15 Laboratory Results - last 24 hr 09/03/22 09/03/22 09/04/22 06:50 06:50 06:16 WBC 11.17 H 13.63 H RBC 4.00 4.02 Hgb 11.8 11.7 Hct 35.6 L 36.6 MCV 89 91 MCH 29.5 29.1 MCHC 33.1 32.0 RDW 12.6 12.6 Plt Count 287 317 MPV 10.8 10.6 Immature Gran % 0.4 0.4 Neutrophils % 61.7 71.3 Lymphocytes % 25.2 14.4 Monocytes % 9.6 10.6 Eosinophils % 2.8 3.0 Basophils % 0.3 0.3 Nucleated RBC % 0.0 0.0 Absolute Neutrophils 6.89 H 9.72 H Absolute Lymphocytes 2.81 1.96 Absolute Monocytes 1.07 H 1.44 H Absolute Eosinophils 0.31 0.41 Absolute Basophils 0.03 0.04 Sodium 142 Potassium 3.5 Chloride 107 Carbon Dioxide 26.9 Anion Gap 8.1 BUN 13 Creatinine 1.0 Est GFR (CKD-EPI 2020) 63.30 Glucose 98 Calcium 8.4 L Total Bilirubin 0.7 AST 12 L ALT 19 Alkaline Phosphatase 51 Total Protein 6.1 L Albumin 2.8 L Time Spent with Patient Time Spent with Patient: 25-34 minutes Time was spent: preparing to see the patient(eg.review tests), ordering medications,tests, procedures and counseling the patient
[2022-09-04 07:30] VITALS: BP 130/79; PULSE 80; RESP 18; TEMP 37.3; O2SAT 95
[2022-09-04 08:00] VITALS: RESP 18; O2SAT 95
[2022-09-04] MEDS: Simethicone 80 MG CHEW 40 MG PO ×4 (08:48→21:53)
[2022-09-04] MEDS: Pramipexole 0.25 MG TAB 0.125 MG PO (08:49)
[2022-09-04] MEDS: buPROPion-XL 150 MG TABCR PO (08:49)
[2022-09-04] MEDS: Umeclidinium 7 CAP INHALER IH (08:57)
[2022-09-04] MEDS: Budesonide/Formoterol 160/4.5 6 GM 60 PUFF INH IH (08:57)
[2022-09-04] MEDS: ACETAMINOPHEN 1,000 MG/100 ML BTL 100 MG IVPB ×2 (08:58→15:25)
[2022-09-04] MEDS: Gabapentin 100 MG CAP PO ×2 (08:59→11:55)
[2022-09-04] MEDS: Methylphenidate 10 MG TAB PO ×2 (09:01→14:02)
--- NOTE | 2022-09-04 11:44 | CHAPLAIN ---
Afsaneh was in bed watching tv when I visited this morning. She was clearly in some discomfort, but she told me she was just given some pain medication and she expected that to kick in soon. Afsaneh said she is in touch with family and that her daughter would be visiting later today. I explained my role and offered support.
[2022-09-04] MEDS: Omnipaque 350 MG/ML 50 ML BTL IJ (13:52)
[2022-09-04] MEDS: Breeza Beverage 473 ML BTL PO (13:52)
--- NOTE | 2022-09-04 14:09 | CMPROGNOTE_ITS ---
- If Service Date Differs Date of service: 09/04/22 Time of Service: 14:09 Care Management Progress Note S/O: Afsaneh was having a CT scan when CM attempted to visit with her. Per report, she is having increased pain today, and slight purulence of drainage. She may have to have an exploratory laporatomy and diversion if her pain does not resolve. She is NPO and on IV fluids and IV abx. CM will continue to follow. A:Afsaneh is a 61 year old woman admitted on 09/01/22 with a perforated diverticula . P:Anticipate Afsaneh will be discharged home with no new services when medically cleared. She will follow up with her community providers and plan of care and transport with her daughter, CM will follow and assess for discharge concerns.
[2022-09-04] MEDS: HYDROmorphone 2 MG/ML SYR 0.5 MG IVP (14:53)
[2022-09-04 15:20] VITALS: BP 148/88; PULSE 83; RESP 17; TEMP 37.3; O2SAT 94
--- NOTE | 2022-09-04 15:37 | DI.CT_ITS ---
Exam(s) CT ABDOMEN PELVIS W EXAM: CT ABDOMEN PELVIS W CLINICAL HISTORY: perf diverticulitis TECHNIQUE: Imaging Protocol: Axial computed tomography images with coronal and sagittal reformatted images were created and reviewed CONTRAST MATERIAL: Intravenous: Omnipaque 350 Contrast volume:100 mL Oral: No COMPARISON: CT CT ABDOMEN PELVIS W from 09/01/2022 FINDINGS: ABDOMEN: Lung Bases: There are dependent infiltrates in the lung bases. Liver: There is decreased attenuation of the liver consistent with fatty infiltration. No measurable mass. Portal, Superior Mesenteric, and Splenic Veins: Unremarkable. Gallbladder and Biliary Tract: No radiodense calculus or dilation. Pancreas: Normal density, no abnormal calcifications or inflammatory process. Spleen: Normal. Adrenals: No masses seen. Kidneys: Normal size, contour and axis. No radiodense stones or obstructive uropathy. No masses seen. Abdominal Aorta: Abdominal portion non-dilated. Atherosclerosis is present. Bowel: There is bowel wall thickening and diverticulosis seen in the sigmoid colon consistent with ac [place] diverticulitis. This has a similar appearance compared to the prior examination from 09/01/2022. There is inflammation of surrounding the sigmoid colon. There is again seen free air in the abdomen consistent with perforation. Appendix is unremarkable. Peritoneal Cavity: Inflammatory changes are seen around the inflamed sigmoid colon. Lymph Nodes: Within normal limits. Bones: Within normal limits for the patient's age. Soft Tissues: Unremarkable. PELVIS: Bladder: Symmetric distention, no gross wall thickening. Reproductive Organs: Unremarkable as visualized. Lymph Nodes: Within normal limits. Bones: Within normal limits for the patient's age. IMPRESSION: 1. There again seen findings of acute sigmoid diverticulitis without evidence of perforation. 2. Small bilateral basilar infiltrates which may represent atelectasis or pneumonia. RADIATION DOSE DELIVERED: 935.49mGy.cm Total DLP DATA REPOSITORY: All CT scans at this facility are submitted to the National Radiology Data Registry (NRDR) Dose Index Registry (DIR) with the [employer] ([employer]). RADIATION OPTIMIZATION: All CT scans at this facility use at least one of these dose optimization te chniques: automated exposure control; mA and/or kV adjustment per patient size (includes targeted exa ms where dose is matched to clinical indication); or iterative reconstruction.
[2022-09-04] MEDS: Normal Saline - Diluent 50 ML VIAL IJ (15:39)
--- NOTE | 2022-09-04 17:16 | PGE_ITS ---
Date of Service Date of service: 09/04/22 Time of Service: 17:16 Assessment and Plan Assessment and plan (1) Diverticulitis: Status: Chronic Assessment and plan: Temp of 38 overnight/increased pain today/slight purulence of drainage. CT: IMPRESSION: 1. There again seen findings of acute sigmoid diverticulitis without evidence of perforation. 2. Small bilateral basilar infiltrates which may represent atelectasis or pneumonia.? -We will order an Acapella since she has bad COPD and encourage walking -Return to n.p.o. and IV fluids -Increased pain meds -Patient antibiotics to Levaquin and Flagyl -Patient is on 60 MME's a day of narcotics for her baseline chronic pain. -She has not had a bowel movement since she has been in the hospital. She did have oral contrast today. -We will see how patient is doing in AM. If she continues to have pain that has not resolved, then we may need to revisit doing exploratory laparotomy and diversion (2) Perforated diverticulum of large intestine: Status: Acute (3) GERD (gastroesophageal reflux disease): Status: Chronic (4) Tobacco use: Status: Acute (5) Hyperlipidemia: Status: Acute (6) COPD (chronic obstructive pulmonary disease): Status: Chronic Subjective Subjective Interval history since last seen: Patient was complaining of more suprapubic/pelvic pain today. no headaches. No CP or SOB. no productive cough. no dysuria. no leg pain or swelling. The drainage from her Femi drain is seropurulent. But it was only 50 cc today. She did have regular food today On abdominal exam she does have good bowel sounds. Incisions are clean dry and intact. She is a little more distended and complaining of suprapubic pain. Repeat CT was obtained. Objective Last Vital Signs Temp 37.3 C 09/04/22 15:20 Pulse 83 09/04/22 15:20 Resp 17 09/04/22 15:20 BP 148/88 H 09/04/22 15:20 Pulse Ox 94 09/04/22 15:20 Laboratory Results - last 24 hr 09/04/22 09/04/22 06:16 06:16 WBC 13.63 H Cancelled RBC 4.02 Cancelled Hgb 11.7 Cancelled Hct 36.6 Cancelled MCV 91 Cancelled MCH 29.1 Cancelled MCHC 32.0 Cancelled RDW 12.6 Cancelled Plt Count 317 Cancelled MPV 10.6 Cancelled Immature Gran % 0.4 Neutrophils % 71.3 Lymphocytes % 14.4 Monocytes % 10.6 Eosinophils % 3.0 Basophils % 0.3 Nucleated RBC % 0.0 Absolute Neutrophils 9.72 H Absolute Lymphocytes 1.96 Absolute Monocytes 1.44 H Absolute Eosinophils 0.41 Absolute Basophils 0.04 Time Spent with Patient Time Spent with Patient: 35-49 minutes Time was spent: preparing to see the patient(eg.review tests), obtaining and/or reviewing separately otained hiistory, ordering medications,tests, procedures, referring, communicating with other health pharmacist critical care, indepentently interpreting results, counseling the patient and care coordination
[2022-09-04] MEDS: levoFLOXacin 750 MG/150 ML BAG 100 MG IVPB (17:25)
[2022-09-04] MEDS: Pantoprazole 40 MG VIAL IVP (17:26)
[2022-09-04] MEDS: Enoxaparin 40 MG/0.4 ML SYR SC (17:29)
[2022-09-04 22:50] VITALS: BP 151/85; PULSE 81; RESP 18; TEMP 36.8; O2SAT 95
[2022-09-05] MEDS: ACETAMINOPHEN 1,000 MG/100 ML BTL 100 MG IVPB (00:39)
[2022-09-05] MEDS: metroNIDAZOLE 500 MG/100 ML BAG 100 MG IVPB ×2 (00:39→08:40)
[2022-09-05] MEDS: HYDROmorphone 2 MG/ML SYR 0.4 MG IVP ×2 (01:52→06:35)
[2022-09-05 06:21] VITALS: BP 159/81; PULSE 59; RESP 16; TEMP 36.4; O2SAT 95
[2022-09-05 06:31] LABS: Abs Immature Grans 0.03 10^3/uL (0.0-0.06); Absolute Basophil Count 0.03 10^3/uL (0.0-0.2); Absolute Eosinophil Count 0.41 10^3/uL (0.0-0.7); Absolute Monocyte Count 1.07 10^3/uL (0.1-0.8); Absolute Neutrophil Count 6.95 10^3/uL (1.2-6.7); Basophils % 0.3; Eosinophils % 3.9; HCT 35.8 % (36.0-46.0); HGB 11.5 g/dL (11.2-15.7); Immature Grans % 0.3; Lymphocytes % 18.3; MCH 28.8 pg (27.0-33.0); MCHC 32.1 % (32.0-36.0); MCV 90 fL (80-95); MPV 10.7 fL (8.0-11.0); Monocytes % 10.3; Neutrophils % 66.9; Platelet Count 339 10^3/uL (130-400); RBC 3.99 10^6/uL (3.93-5.22); RDW 12.4 % (11.7-14.6); RDW-SD 41.1 fL; WBC 10.39 10^3/uL (4.4-10.8)
--- NOTE | 2022-09-05 08:00 | DI.RAD_ITS ---
Exam(s) XR CHEST 2V PA LATERAL EXAM: XR CHEST 2V PA LATERAL CLINICAL HISTORY: Possible infiltrate. Status post laparoscopy. Di TECHNIQUE: 2D digital imaging was performed. COMPARISON: CR,XR XR PORTABLE CHEST AP from 05/15/2022 FINDINGS: Free air is noted beneath the diaphragms, presumably postprocedural. HEART: Normal size. Aorta: Not dilated. PULMONARY VASCULATURE: Normal. LUNGS: Clear. PLEURAL SPACE: Minimal blunting at the posterior costophrenic angles. No pneumothorax. BONE:Unremarkable for age. IMPRESSION: Minimal pleural effusions. No infiltrate is visible.. DATA REPOSITORY: RADIATION DOSE DELIVERED:
[2022-09-05] MEDS: ACETAMINOPHEN 1,000 MG/100 ML BTL 400 MG IVPB (08:39)
[2022-09-05] MEDS: Simethicone 80 MG CHEW 40 MG PO ×4 (08:41→20:16)
[2022-09-05] MEDS: Pramipexole 0.25 MG TAB 0.125 MG PO (08:41)
[2022-09-05] MEDS: Methylphenidate 10 MG TAB PO ×2 (08:41→13:48)
[2022-09-05] MEDS: Gabapentin 100 MG CAP PO ×3 (08:41→20:16)
--- NOTE | 2022-09-05 09:08 | DI.VRAD_ITS ---
PROCEDURE INFORMATION: Exam: XR Chest Exam date and time: 09/05/2022 8:09 AM Age: 61 years old Clinical indication: Other: Possible infiltrate, status post laparoscopy TECHNIQUE: Imaging protocol: Radiologic exam of the chest. Views: 2 views. COMPARISON: CT CHEST LUNG CANCER SCREEN 06/22/2022 1:09 PM FINDINGS: Lungs: Unremarkable. No consolidation. Pleural spaces: There are small bilateral pleural effusions. Heart/Mediastinum: Unremarkable. No cardiomegaly. Bones/joints: No acute bone abnormality. Intraperitoneal space: There is free air in the upper abdomen. IMPRESSION: 1. Small bilateral pleural effusions. 2. Expected postprocedural pneumoperitoneum. Dictated and Authenticated by: Ernie Ortiz MD. Ordering:KIMMY Saucedo MD
[2022-09-05] MEDS: Ketorolac 15 MG/ML VIAL IVP (10:28)
--- NOTE | 2022-09-05 12:53 | W.PM.PROGNOT ---
Date of Service Date of service: 09/05/22 Time of Service: 12:00 Assessment and Plan Assessment and plan (1) Diverticulitis: Status: Chronic Assessment and plan: 61 yo woman with perforated sigmoid diverticulitis post-op from washout and drain placement. She is HD stable and has benign abdominal exam. No fevers and white count normal today. She really wants to go home but hasn't eaten anything. Plan: # Oral Abx # DC everything IV # reg diet # Discharge in the morning # drain teaching - patient can remove drain in office later this week. Subjective Subjective Interval history since last seen: Patient wants to eat. Hungry and denies pain. Says passing gas. Exam Narrative Exam Narrative: Gen: nontoxic and comfortable and interactive Neuro: Axox3 Psych: Good mood and affect Abdomen: Soft, nondistended and grossly nontender. Drain has moderate amount of output - mildly purulent but without bile or succus. Objective Last Vital Signs Temp 97.5 F L 09/05/22 06:21 Pulse 59 L 09/05/22 06:21 Resp 16 09/05/22 06:21 BP 159/81 H 09/05/22 06:21 Pulse Ox 95 09/05/22 06:21 Laboratory Results - last 24 hr 09/05/22 05:35 WBC 10.39 RBC 3.99 Hgb 11.5 Hct 35.8 L MCV 90 MCH 28.8 MCHC 32.1 RDW 12.4 Plt Count 339 MPV 10.7 Immature Gran % 0.3 Neutrophils % 66.9 Lymphocytes % 18.3 Monocytes % 10.3 Eosinophils % 3.9 Basophils % 0.3 Nucleated RBC % 0.0 Absolute Neutrophils 6.95 H Absolute Lymphocytes 1.90 Absolute Monocytes 1.07 H Absolute Eosinophils 0.41 Absolute Basophils 0.03 Time Spent with Patient Time Spent with Patient: 25-34 minutes Time was spent: counseling the patient and care coordination
[2022-09-05] MEDS: oxyCODONE-CR 10 MG TABCR PO (13:48)
[2022-09-05] MEDS: Acetaminophen 500 MG TAB 1000 MG PO ×2 (13:48→20:17)
[2022-09-05] MEDS: metroNIDAZOLE 500 MG TAB PO ×2 (13:49→20:17)
[2022-09-05 15:36] VITALS: BP 153/81; PULSE 79; RESP 17; TEMP 37; O2SAT 95
[2022-09-05] MEDS: Enoxaparin 40 MG/0.4 ML SYR SC (17:25)
[2022-09-05] MEDS: oxyCODONE 10 MG TAB PO (18:26)
[2022-09-05] MEDS: Budesonide/Formoterol 160/4.5 6 GM 60 PUFF INH IH (19:59)
[2022-09-05] MEDS: Omeprazole 20 MG CAPCR PO (20:17)
[2022-09-05 23:12] VITALS: BP 117/63; PULSE 75; RESP 18; TEMP 36.4; O2SAT 97
[2022-09-06] MEDS: Acetaminophen 500 MG TAB 1000 MG PO ×2 (01:57→09:06)
[2022-09-06] MEDS: oxyCODONE-CR 10 MG TABCR PO (01:57)
[2022-09-06 06:20] VITALS: BP 166/68; PULSE 77; RESP 16; TEMP 36.1; O2SAT 96
[2022-09-06] MEDS: levoFLOXacin 500 MG, levoFLOXacin 250 MG 750 MG PO (09:05)
[2022-09-06] MEDS: Simethicone 80 MG CHEW 40 MG PO (09:05)
[2022-09-06] MEDS: Omeprazole 20 MG CAPCR PO (09:06)
[2022-09-06] MEDS: Gabapentin 100 MG CAP PO (09:06)
[2022-09-06] MEDS: Methylphenidate 10 MG TAB PO (09:06)
[2022-09-06] MEDS: metroNIDAZOLE 500 MG TAB PO (09:06)
[2022-09-06] MEDS: oxyCODONE 10 MG TAB PO (09:06)
[2022-09-06] MEDS: Budesonide/Formoterol 160/4.5 6 GM 60 PUFF INH IH (09:44)
[2022-09-06] MEDS: Umeclidinium 7 CAP INHALER IH (09:44)
--- NOTE | 2022-09-06 10:04 | W.PM.PROGNOT ---
Date of Service Date of service: 09/06/22 Time of Service: 10:00 Assessment and Plan Assessment and plan (1) Diverticulitis: Status: Chronic Assessment and plan: 61 yo woman post-op from lap washout and drain placement for perf diverticulitis. HD stable, benign abdomen, good BF, no subj complaints. Plan: DC home with drain and on oral Abx Subjective Subjective Interval history since last seen: No issues. Knows how to manage her drain. Having bowel function. No abdominal pain. Wants to go home. Exam Narrative Exam Narrative: Gen: Nontoxic, comfortable and interactive Neuro: AxOx3 Psych: Good mood and affect Abdomen: Soft, nondistended and nontender. Incisions healing perfectly. No erythema. Drain intact, to bulb suction, with purulunt output. Objective Last Vital Signs Temp 97.0 F L 09/06/22 06:20 Pulse 77 09/06/22 06:20 Resp 16 09/06/22 06:20 BP 166/68 H 09/06/22 06:20 Pulse Ox 96 09/06/22 06:20 Time Spent with Patient Time Spent with Patient: <25 minutes Time was spent: counseling the patient and care coordination
--- NOTE | 2022-09-06 15:20 | PDOC.CMDIS ---
- If Service Date Differs Date of service: 09/06/22 Time of Service: 15:20 LACE Index Scoring Tool - Questions: Length of Stay (in days): 4 - 6 Acuity (Admit via E.D.?): Yes Comorbidities: Chronic Pulmonary Disease E.D. Visits: 2 - Answers: Total Score: 11 Risk of Readmission: High Risk Care Management Discharge Reason for Hospitalization: Perforated diverticulum Discharge Plan: Afsaneh returned home today with no new services. Her daughter drove her home via private vehicle. She will follow up with her PCP and discharge plan of care. Patient/Family Education Needs: Review discharge instructions and limitations, discussion of self care needs including ask me three.
--- NOTE | 2022-09-07 07:29 | DSE_ITS ---
Date of service: 09/07/22 Time of Service: 07:29 DS: Diagnosis Discharge Diagnosis (1) Diverticulitis: Status: Resolved Discharge Plan Disposition Patient Disposition: Home Condition: Good Discharge Details Reason For Visit: Acute Perferoated Diverticula/Peritontis Admit Date/Time: 09/01/22 17:36 Admit Provider: Sheryl Tanner Attending Provider: Sheryl Tanner Primary Care Provider: Soraida Sims V Hospital Course Hospital Course: 61 yo woman presented with perforated sigmoid diverticulitis. Taken for lap washout and drain placement. She did well and was discharged with her intra- peritoneal drain and oral Abx. She will followup in clinic this week to have drain assessed and likely removed. Home Meds and New Rx's Prescriptions: New metronidazole 500 mg Tablet 500 mg PO TID Qty: 15 0RF levofloxacin 750 mg Tablet 750 mg PO QAM Qty: 5 0RF Continued albuterol sulfate [ProAir HFA] 90 mcg/actuation HFA aerosol inhaler 2 puff IH Q4-5H PRN albuterol sulfate 2.5 mg /3 mL (0.083 %) solution for nebulization 2.5 mg IH Q4H PRN pramipexole [Mirapex] 0.125 mg tablet 0.125 mg PO DAILY Rx Instructions: Current med list: 1 Tab q afternoon, 2 tabs q HS fluticasone propionate [Flonase Allergy Relief] 50 mcg/actuation spray,suspension 1 spray CURTIS DAILY PRN Rx Instructions: 1 spray each side 2 times per day oxycodone 10 mg tablet 10 mg PO QID PRN omeprazole 40 mg capsule,delayed release(DR/EC) 40 mg PO DAILY Qty: 60 0RF docusate sodium [Colace] 100 mg capsule 100 mg PO PRN PRN fluticasone propionate [Flonase Allergy Relief] 50 mcg/actuation spray,suspension 1 spray intranasal DAILY Rx Instructions: administer into each nostril aspirin 81 mg tablet,delayed release (DR/EC) 81 mg PO DAILY Adult 50 Plus Probiotic 4 billion cell capsule 4,000 mmu cells PO DAILY Rx Instructions: administer with a meal Incruse Ellipta 62.5 mcg/actuation blister with device 1 inh inhalation DAILY fluticasone propion-salmeterol [Advair Diskus] 250-50 mcg/dose blister with device 1 inh inhalation BID naloxone [Narcan] 4 mg/actuation spray,non-aerosol 4 mg intranasal Q2M PRN Rx Instructions: spray 1 dose into ONE nostril; alternate nostrils w each dose until help arrives methylphenidate HCl 10 mg tablet 10 mg PO BID ibuprofen [Ibuprofen IB] 200 MG tablet 200 mg PO QID PRN PRN Rx Instructions: 600 mg orally sucralfate [Carafate] 1 gram tablet 1 g PO QACHS Qty: 120 12RF bupropion HCl 150 mg Tablet Extended Release 24 Hr 150 mg PO QAM Qty: 30 0RF dextromethorphan-guaifenesin 10-100 mg/5 mL Syrup 10 ml PO Q4H PRN PRNQty: 0 0RF prednisone 20 mg Tablet 40 mg PO DAILY Qty: 3 0RF Rx Instructions: First dose on 05/19/22 Inhaler, Assist Devices [Pocket Chamber] 1 ea miscellaneous DIRECTED Qty: 0 0RF gabapentin 100 mg capsule See Rx Instructions .ROUTE .COMPLEX Qty: 90 0RF Rx Instructions: 100mg tab in AM and at noon. 300mg each night. Discharge Instructions Instructions: Diverticulitis (DC) Additional Instructions: Incisions:? Can be left uncovered. Keep clean.? It is okay to shower.?? Drain:? Empty drain twice daily (morning and evening).? A drain sponge can be kept around the drain opening and changed [id number].? The drain will be removed in the office. Medications:? Take antibiotics for the next 5 days.? You can take probiotics/yogurt with it if you would like. Diet:? Regular Pain:? Mild discomfort will persist but pain should not be worsening.? Only Tylenol should be needed.? Call MD if anything is getting worse or for pain not controlled with Tylenol.? Activity:? Light-duty as tolerated with no strenuous or heavy lifting/pulling/pushing for the next 6 weeks or until cleared by your surgeon.? No weight lifting or sports such as skiing.? Stand Alone Forms: Nursing Discharge Form Referrals: Sheryl Tanner, [OSTEOPATHIC DOCTOR] - (Please call [phone] Wednesday to make an Appointment ) Activity:: Activity as Tolerated Equipment/Supplies:: No Equipment Needed Diet:: Normal Diet Discharge Orders Discharge Orders: Discharge Order (Routine); Ordered 09/06/22 Ordered By: Rakan Upton Discharge Data Discharge Date/Time-TO BE ENTERED AT DEPARTURE: 09/06/22 12:26 DS: Summary Time Spent with Patient providing and/or coordinating discharge services: Greater than 30 minutes Status at Discharge Functional status at discharge: independent ambulation Overall status at discharge: patient is back to baseline Mental Status: mental status grossly normal Speech and Movement: speech and movement normal Mood: congruent mood Affect: normal affect Exam Psych Mental Status: mental status grossly normal Speech and Movement: speech and movement normal Mood: congruent mood Affect: normal affect DS: Data Vitals/I&O Vitals and I&O: Vital Signs Temperature 97.0 F L 09/06/22 06:20 Temperature Source Tympanic 09/06/22 06:20 Pulse 77 09/06/22 06:20 Pulse Rhythm Regular 09/05/22 08:40 Pulse 109 H 09/01/22 15:50 Respiratory Rate 16 09/06/22 06:20 Respiratory Effort Normal, Non-Labored 09/05/22 23:15 Respiratory Depth Normal 09/05/22 23:15 Respiratory Pattern Normal 09/05/22 23:15 Blood Pressure 166/68 H 09/06/22 06:20 Blood Pressure Mean 92 09/01/22 15:46 Pulse Oximetry 96 09/06/22 06:20 Respiratory End-tidal CO2 40 09/01/22 17:58 Oxygen Delivery Method Room Air 09/06/22 06:20 Oxygen Flow Rate 0 09/06/22 06:20 Pain Level 7 09/06/22 09:06 Comment RN informed of pain 09/02/22 07:24 Intake & Output 09/06/22 09/06/22 09/07/22 11:59 23:59 11:59 Output Total 1420 / 1420 Balance -1420 / -1420 Output: Drainage 20 / 20 Lower Abdomen 20 / 20 Urine 1400 / 1400 Other: Urine Color Yellow Urine Appearance Clear Urine Odor Normal Stool Size Moderate Stool Characteristics Hard Brown Voiding Methods Toilet PFSH All Active Problems COPD exacerbation (Acute) Duodenitis (Acute) Gastritis (Acute) Cervicalgia (Acute) Tendonitis of long head of biceps brachii of right shoulder (Acute) Degenerative arthritis of cervical spine (Acute) Arthritis of left glenohumeral joint (Acute) HPV (human papilloma virus) infection (Acute) IBS (irritable bowel syndrome) (Chronic) Skin lesion (Acute) Low back pain (Acute) Lumbar radiculopathy (Acute) Abdominal pain (Acute) Abdominal bloating (Acute) Blood in stool (Acute) Hx of allergic reaction (Acute) Closed fracture of right distal fibula (Acute) Shoulder pain (Acute) Trigger finger of all digits of both hands (Acute) Arthritis of right glenohumeral joint (Acute) No-show for appointment (Acute) Spondylosis, cervical (Acute) Carpal tunnel syndrome, bilateral (Acute) Shoulder pain, bilateral (Acute) Effusion of left knee (Acute) Situational depression (Chronic) Myalgia (Acute) Generalized osteoarthritis of multiple sites (Acute) Patellar tendinitis (Acute) Sinusitis (Acute) Mild memory disturbance (Acute) Rash, skin (Acute) Visit for screening mammogram (Acute) Preventative health care (Acute) Colonoscopy planned (Acute) Frequency of urination (Acute) Eye irritation (Acute) Dysuria (Acute) Ankle joint disorder (Acute) Hypoglycemia (Acute) Cough (Acute) Sinusitis, acute (Acute) Medical History ADHD Cervical spinal stenosis AGATHA III (cervical intraepithelial neoplasia III) Constipation, chronic COPD (chronic obstructive pulmonary disease) COVID Diaphoresis Dyspnea Edentulous Exposure to COVID-19 virus GERD (gastroesophageal reflux disease) Grief reaction Hemangioma of liver Hematemesis History of paresthesia HPV (human papilloma virus) anogenital infection Hyperlipidemia Liver lesion Minimally displaced zone I fracture of sacrum, sequela Nocturnal hypoxia Pneumonia Reactive inflammatory arthritis Restless leg syndrome Seasonal allergic reaction Sleep apnea Supraclavicular lymphadenopathy Tendonitis Tobacco use Surgical History Arthroscopy, Shoulder History of colonoscopy (~07/05/18) History of esophagogastroduodenoscopy (EGD) (~09/2020) S/P colonoscopy S/P tonsillectomy Trigger Finger release several Family History Mother Personal history of malignant neoplasm uterine, mets to colon Social History Smoking/Tobacco Use Status: Former Tobacco Use Quit Date: 05/14/22 Smoking risk assessment performed?: Yes Alcohol Intake: never Drug use: Never Substance use type: does not use Current gender identity: female Do you feel safe at home: Yes Do you feel safe in your relationship?: Yes Time Spent with Patient Time Spent with Patient: <45 minutes Time was spent: preparing to see the patient(eg.review tests), obtaining and/or reviewing separately otained hiistory, indepentently interpreting results, counseling the patient and care coordination
== END 2022-09-06 12:26 | disposition home or self-care (01) | DRG 391 ==
LOC: ER 13:41 → DSU 16:01 → MS 18:10
PROVIDERS: Surgery; Admitting Provider Surgery; Emergency Provider Emergency Medicine; PCP Family Medicine; Visit Provider Surgery
PROC: (CPT 49320; principal; 2022-09-01 16:05)
DX: K57.20 Diverticulitis of large intestine with perforation and abscess without bleeding (principal); K65.9 Peritonitis, unspecified; J44.9 Chronic obstructive pulmonary disease, unspecified; M47.812 Spondylosis without myelopathy or radiculopathy, cervical region; K59.09 Other constipation; F17.210 Nicotine dependence, cigarettes, uncomplicated; G25.81 Restless legs syndrome; K29.80 Duodenitis without bleeding; K21.9 Gastro-esophageal reflux disease without esophagitis; K29.70 Gastritis, unspecified, without bleeding; E78.5 Hyperlipidemia, unspecified; K58.9 Irritable bowel syndrome, unspecified; M54.16 Radiculopathy, lumbar region; J30.9 Allergic rhinitis, unspecified; F90.9 Attention-deficit hyperactivity disorder, unspecified type
CPT/HCPCS: 49322; 36415; 80048; 80053; 85027; 87040; 87635; 94640; 96361; 96365; 96375; 96376; 99285; J1650; 71046; 74177; 81003; 81015; 83605; 83735; 85025; 86140; 87086; 94664; 94668; J0131; J0744; J1100; J1170; J1885; J1956; J2250; J2270; J2405; J2704; J3010; Q9967

== ENCOUNTER 2022-09-09 20:40 | Inpatient (IN) | payer MEDICAID, SELFPAY ==
[2022-09-09 20:42] VITALS: BP 142/109; PULSE 107; RESP 20; TEMP 37.5; O2SAT 95
--- NOTE | 2022-09-09 20:45 | DI.CT_ITS ---
Exam(s) CT ABDOMEN PELVIS W EXAM: CT ABDOMEN PELVIS W CLINICAL HISTORY: abdominal pain, recent diverticulitis. TECHNIQUE: Imaging Protocol: Axial computed tomography images with coronal and sagittal reformatted images were created and reviewed CONTRAST MATERIAL: Intravenous: Omnipaque 350 Contrast volume:100 ml Oral: Residual oral contrast seen in colon from prior exam. COMPARISON: CT CT ABDOMEN PELVIS W from 09/01/[address] ABDOMEN PELVIS W from 09/04/2022 FINDINGS: ABDOMEN: Lung Bases: Normal where visualized. Liver: Enlarged. Fatty infiltration. No measurable mass. Gallbladder and biliary tract: No radiodense calculus or dilation. Pancreas: Normal density, no abnormal calcifications or inflammatory process. Spleen: Normal. Kidneys: Normal size, contour and axis. No radiodense stones or obstructive uropathy. No suspicious m asses seen. Adrenal glands: No masses seen. Abdominal Aorta: Abdominal portion non-dilated. Soft tissues: Unremarkable. PELVIS: Bladder: No gross wall thickening. No calculi.No focal mass. Bowel: No obstruction. Severe sigmoid diverticulosis and diverticulitis again demonstrated. There i s now a focal gas collection seen between the sigmoid colon and uterus . It measures 4 by 3 by 6.5 c m. Appendix normal. Peritoneal cavity: Large quantity of free air noted, increasing from prior. Bones: Within normal limits for age. Reproductive organs: Within normal limits. Lymph nodes: Unremarkable. Impression: Diverticulitis with perforation with increase in amount of free air. Focal gas collection noted betw een sigmoid and uterus.. This may represent a developing abscess. RADIATION DOSE DELIVERED: 792.9mGy.cm Total DLP DATA REPOSITORY: All CT scans at this facility are submitted to the National Radiology Data Registry (NRDR) Dose Index Registry (DIR) with the [employer] (A[employer]). RADIATION OPTIMIZATION: All CT scans at this facility use at least one of these dose optimization te chniques: automated exposure control; mA and/or kV adjustment per patient size (includes targeted exa ms where dose is matched to clinical indication); or iterative reconstruction.
[2022-09-09 21:01] LABS: Abs Immature Grans 0.14 10^3/uL (0.0-0.06); HCT 38.7 % (36.0-46.0); HGB 12.8 g/dL (11.2-15.7); MCH 29.4 pg (27.0-33.0); MCHC 33.1 % (32.0-36.0); MCV 89 fL (80-95); MPV 9.6 fL (8.0-11.0); Platelet Count 492 10^3/uL (130-400); RBC 4.35 10^6/uL (3.93-5.22); RDW 12.5 % (11.7-14.6); RDW-SD 41.1 fL
[2022-09-09] MEDS: Normal Saline - Diluent 50 ML VIAL IJ (21:06)
[2022-09-09] MEDS: Omnipaque 350 MG/ML 100 ML BTL IJ (21:06)
[2022-09-09 21:12] LABS: Absolute Lymphocyte Count 2.23 10^3/uL (1.2-3.4); Absolute Monocyte Count 1.27 10^3/uL (0.1-0.8); Diff Comment Manual Differential; RBC Morphology Normal
[2022-09-09 21:16] LABS: ALT 56 U/L (14-59); AST 32 U/L (15-37); Albumin 3.1 g/dL (3.4-5.0); Alkaline Phosphatase 66 U/L (46-116); Anion Gap 10.3 mmol/L (3-11); BUN 7 mg/dL (7-18); Bilirubin, Total 0.4 mg/dL (0.2-1.0); CO2 27.7 mmol/L (21.0-32.0); Calcium 8.6 mg/dL (8.5-10.1); Chloride 101 mmol/L (98-107); Glucose 146 mg/dL (74-106); Lipase 24 U/L (16-77); Potassium 3.6 mmol/L (3.5-5.1); Sodium 139 mmol/L (136-145); Total Protein 7.2 g/dL (6.4-8.2)
[2022-09-09 21:17] LABS: Bilirubin Negative (Negative); Blood Trace-lysed (Negative); Clarity Sl Cloudy (Clear); Glucose Negative (Negative); Ketones Negative (Negative); Leukocyte Esterase Moderate (Negative); Nitrite Negative (Negative); Specific Gravity 1.025 (1.005-1.025); Urobilinogen 0.2 mg/dL (Up to 0.2); pH 6.5 (5-8)
--- NOTE | 2022-09-09 21:20 | DI.VRAD_ITS ---
Addendum created by Tahir Ruiz MD on 09/09/2022 11:03:09 PM EDT: THIS REPORT CONTAINS FINDINGS THAT MAY BE CRITICAL TO PATIENT CARE. The findings were verbally communicated via telephone conference with Arleen Andrade at 11:02 PM EDT on 09/09/2022. The findings were acknowledged and understood. Initial report created on 09/09/2022 9:19:09 PM EDT: PROCEDURE INFORMATION: Exam: CT Abdomen And Pelvis With Contrast Exam date and time: 09/09/2022 8:57 PM Age: 61 years old Clinical indication: Abdominal pain; Prior surgery; Surgery date: 3-7 days post-operative; Surgery type: Exploratory laparoscopy 09/01/22; Patient HX: Recent diverticulitis TECHNIQUE: Imaging protocol: Computed tomography of the abdomen and pelvis with contrast. Contrast material: OMNIPAQUE 350; Contrast volume: 100 ml; Contrast route: INTRAVENOUS (IV); COMPARISON: CT ABDOMEN PELVIS W 09/04/2022 3:38 PM FINDINGS: Liver: Hepatomegaly and diffuse fatty infiltrationNo mass. Gallbladder and bile ducts: Normal. No calcified stones. No ductal dilation. Pancreas: Normal. No ductal dilation. Spleen: Normal. No splenomegaly. Adrenal glands: Normal. No mass. Kidneys and ureters: Normal. No hydronephrosis. Stomach and bowel: Colonic diverticulosis with associated infiltration/thickening in the mid sigmoid colon. obstruction. No mucosal thickening. Appendix: No evidence of appendicitis. Intraperitoneal space: Free air noted superior to the uterus and inferior to the sigmoid colon No significant fluid collection. Small pelvic fluid Vasculature: Unremarkable. No abdominal aortic aneurysm. Lymph nodes: Unremarkable. No enlarged lymph nodes. Urinary bladder: Unremarkable as visualized. Reproductive: Unremarkable as visualized. Bones/joints: Unremarkable. No acute fracture. Soft tissues: Unremarkable. IMPRESSION: Perforated sigmoid colonic diverticulitis without abscess as noted Dictated and Authenticated by: Tahir Ruiz MD. Ordering:LALO Bacon MD
[2022-09-09 21:24] LABS: Bacteria Moderate HPF (Negative); C & S Indicated? Yes; Casts Negative LPF (Negative); Crystals Negative HPF (Negative); Epithelial Cells Few HPF (Negative); Mucus Negative (Negative); RBC 0-2 HPF (0-2)
--- NOTE | 2022-09-09 21:30 | RT.EKG_ITS ---
APPROVED REPORT Exam: Resting ECG Reason for Exam: nausea Patient Location: E HR:84 bpm ECG Measurements Heart Rate 84 AXIS LA 189 P 55 QRSd 93 QRS 60 QT 377 T 44 QTc 446 Conclusion Sinus rhythm...normal P axis, V-rate 60- 99
[2022-09-09] MEDS: HYDROmorphone 2 MG/ML SYR 1 MG IVP (21:55)
[2022-09-09] MEDS: Lactated Ringers 1,000 ML 1000 ML IV (21:56)
--- NOTE | 2022-09-09 22:13 | NUR.NOTE ---
Blood cultures drawn and sent by lab.
[2022-09-09 22:16] LABS: Lactate 0.7 mmol/L (0.6-1.4)
--- NOTE | 2022-09-09 22:18 | W.ED.GENAD ---
Discharge Plan Disposition Patient Disposition: Admit to [facility] Condition: Serious Discharge Details Clinical Impression: Perforated diverticulum Admit Date/Time: 09/09/22 22:22 Admit Provider: Nell Santoro Attending Provider: Nell Santoro Primary Care Provider: Soraida Sims V ED Provider: Arleen Andrade Discharge Data Discharge Date/Time-TO BE ENTERED AT DEPARTURE: 09/09/22 23:57 Medical Decision Making 61-year-old female with recent diverticulitis with perforation and rupture fluoroscopy with drain presents with recurrence of pain CT per radiology interpretation and my review shows evidence of diverticulitis with perforation Patient does not have peritonitis clinically on assessment She has leukocytosis of 15,000 the remainder of her labs are reassuring She is given IV Levaquin and Flagyl after discussion with Dr. Santoro, surgeon who will admit patient to her care and will evaluate in the morning Patient is to remain n.p.o. and fluids are ordered IV Dilaudid as needed is ordered HPI General Date/Time Provider Initiated Documentation: 09/09/22 20:48. HPI Narrative: 61-year-old female with history of COPD, cervicalgia, gastritis, HPV, recent diverticulitis with perforation currently on Levaquin and Flagyl presents with report of recurrence of pain. She is discharged from the hospital 2 days ago and is taking Levaquin and Flagyl as prescribed She states her pain got worse this evening. Her drain was removed 2 days ago per patient. She states the pain is worsened with walking. She denies any fever or chills. She has any nausea or vomiting. Related Data Home Medications Medication Instructions Recorded Confirmed ibuprofen 200 mg tablet (Ibuprofen 200 mg PO QID PRN PRN 09/18/15 09/08/22 IB) albuterol sulfate 2.5 mg/3 mL 2.5 mg inhalation Q4H PRN 06/26/19 09/08/22 (0.083 %) solution for nebulization albuterol sulfate 90 mcg/actuation 2 puff inhalation Q4-5H PRN 06/26/19 09/08/22 aerosol inhaler (ProAir HFA) pramipexole 0.125 mg tablet 0.125 mg PO DAILY 06/26/19 09/09/22 (Mirapex) fluticasone propionate 50 1 spray intranasal DAILY PRN 06/26/20 09/08/22 mcg/actuation nasal spray,suspension (Flonase Allergy Relief) oxycodone 10 mg tablet 10 mg PO QID PRN 08/28/20 09/09/22 sucralfate 1 gram tablet (Carafate) 1 g PO QACHS #120 tabs 09/27/20 09/08/22 aspirin 81 mg tablet,delayed 81 mg PO DAILY 05/12/22 09/09/22 release docusate sodium 100 mg capsule 100 mg PO PRN PRN 05/12/22 09/08/22 (Colace) fluticasone 250 mcg-salmeterol 50 1 inh inhalation BID 05/12/22 09/08/22 mcg/dose blistr powdr for inhalation (Advair Diskus) fluticasone propionate 50 1 spray intranasal DAILY 05/12/22 09/08/22 mcg/actuation nasal spray,suspension (Flonase Allergy Relief) lactobacillus combination no.9 4 10,000 mmu cells PO DAILY 05/12/22 09/09/22 billion cell capsule (Adult 50 Plus Probiotic) umeclidinium 62.5 mcg/actuation 1 inh inhalation DAILY 05/12/22 09/08/22 blister powder for inhalation (Incruse Ellipta) Inhaler, Assist Devices [Pocket 1 ea miscellaneous DIRECTED ##0 05/18/22 09/08/22 Chamber] bupropion HCl 150 mg 24 hr tablet, 150 mg PO QAM #30 tabs 05/18/22 09/08/22 extended release dextromethorphan-guaifenesin 10 10 ml PO Q4H PRN PRN #0 mL 05/18/22 09/08/22 mg-100 mg/5 mL oral syrup gabapentin 100 mg capsule See Rx Instructions .Route 05/18/22 09/09/22 .COMPLEX #90 caps prednisone 20 mg tablet 40 mg PO DAILY #3 tabs 05/18/22 09/08/22 methylphenidate HCl 10 mg tablet 10 mg PO BID 06/18/22 09/09/22 naloxone 4 mg/actuation nasal 4 mg intranasal Q2M PRN 06/18/22 09/09/22 spray (Narcan) levofloxacin 750 mg tablet 750 mg PO QAM #5 tabs 03/26/23 03/28/23 metronidazole 500 mg tablet 500 mg PO TID #15 tabs 09/06/22 09/08/22 omeprazole 40 mg capsule,delayed 20 mg PO DAILY 09/09/22 09/09/22 release Previous Rx's Medication Instructions Recorded sucralfate 1 gram tablet (Carafate) 1 g PO QACHS #120 tabs 09/27/20 Inhaler, Assist Devices [Pocket 1 ea miscellaneous DIRECTED ##0 05/18/22 Chamber] bupropion HCl 150 mg 24 hr tablet, 150 mg PO QAM #30 tabs 05/18/22 extended release dextromethorphan-guaifenesin 10 10 ml PO Q4H PRN PRN #0 mL 05/18/22 mg-100 mg/5 mL oral syrup gabapentin 100 mg capsule See Rx Instructions .Route 05/18/22 .COMPLEX #90 caps prednisone 20 mg tablet 40 mg PO DAILY #3 tabs 05/18/22 levofloxacin 750 mg tablet 750 mg PO QAM #5 tabs 09/06/22 metronidazole 500 mg tablet 500 mg PO TID #15 tabs 09/06/22 Allergies Allergy/AdvReac Type Severity Reaction Status Date / Time acetaminophen Allergy Severe Hives Verified 09/08/22 12:23 [From Mapap (acetaminophen)] cephalexin [Cephalexin] Allergy Intermediate Skin Rash Unverified 09/01/22 13:24 Penicillins Allergy Intermediate rash with Unverified 09/01/22 13:24 all cillins ampicillin Allergy Mild Skin Rash Unverified 09/01/22 13:24 atorvastatin Allergy Mild Unverified 09/09/22 21:25 cefprozil [From Cefzil] Allergy Mild Skin Rash Unverified 09/01/22 13:24 Cephalosporins Allergy Mild Hives Unverified 09/01/22 13:24 clindamycin Allergy Mild Skin Rash Unverified 09/01/22 13:24 doxycycline Allergy Mild Skin Rash Unverified 09/01/22 13:24 varenicline [From Chantix] Allergy Mild Unverified 09/01/22 13:24 amoxicillin Allergy Unknown Hives Unverified 09/01/22 13:24 bupropion Allergy Unverified 09/09/22 21:28 cefuroxime [From Ceftin] Allergy Unverified 09/09/22 21:28 clarithromycin [From Biaxin] Allergy rash/hives Unverified 09/01/22 13:24 duloxetine [From Cymbalta] AdvReac Intermediate made me Unverified 09/01/22 13:24 feel very weird linaclotide [From Linzess] AdvReac Mild Diarrhea Unverified 09/01/22 13:24 nicotine [From Nicorette] AdvReac Mild Nauseaous Unverified 09/01/22 13:24 adhesive tape AdvReac Unknown Skin Rash Unverified 09/01/22 13:24 adhesive AdvReac Topical Unverified 09/01/22 13:24 Irritation banana AdvReac abd Unverified 09/01/22 13:24 bloating codeine AdvReac sick Unverified 09/01/22 13:24 hydrocodone [From Vicodin] AdvReac cold Verified 09/01/22 13:24 sweats, vomiting black hair dye Allergy Intermediate Hives Uncoded 09/01/22 13:24 eggs Allergy bloating Uncoded 09/01/22 13:24 General Stated Complaint: Abd Prob MIGUEL: 3 PFSH All Active Problems Perforated diverticulum (Acute) COPD exacerbation (Acute) Duodenitis (Acute) Gastritis (Acute) Cervicalgia (Acute) Tendonitis of long head of biceps brachii of right shoulder (Acute) Degenerative arthritis of cervical spine (Acute) Arthritis of left glenohumeral joint (Acute) HPV (human papilloma virus) infection (Acute) IBS (irritable bowel syndrome) (Chronic) Skin lesion (Acute) Low back pain (Acute) Lumbar radiculopathy (Acute) Abdominal pain (Acute) Abdominal bloating (Acute) Blood in stool (Acute) Hx of allergic reaction (Acute) Closed fracture of right distal fibula (Acute) Shoulder pain (Acute) Trigger finger of all digits of both hands (Acute) Arthritis of right glenohumeral joint (Acute) No-show for appointment (Acute) Spondylosis, cervical (Acute) Carpal tunnel syndrome, bilateral (Acute) Shoulder pain, bilateral (Acute) Effusion of left knee (Acute) Situational depression (Chronic) Myalgia (Acute) Generalized osteoarthritis of multiple sites (Acute) Patellar tendinitis (Acute) Sinusitis (Acute) Mild memory disturbance (Acute) Rash, skin (Acute) Visit for screening mammogram (Acute) Preventative health care (Acute) Colonoscopy planned (Acute) Frequency of urination (Acute) Eye irritation (Acute) Dysuria (Acute) Ankle joint disorder (Acute) Hypoglycemia (Acute) Cough (Acute) Sinusitis, acute (Acute) Medical History ADHD Cervical spinal stenosis AGATHA III (cervical intraepithelial neoplasia III) Constipation, chronic COPD (chronic obstructive pulmonary disease) COVID Diaphoresis Dyspnea Edentulous Exposure to COVID-19 virus GERD (gastroesophageal reflux disease) Grief reaction Hemangioma of liver Hematemesis History of paresthesia HPV (human papilloma virus) anogenital infection Hyperlipidemia Liver lesion Minimally displaced zone I fracture of sacrum, sequela Nocturnal hypoxia Pneumonia Reactive inflammatory arthritis Restless leg syndrome Seasonal allergic reaction Sleep apnea Supraclavicular lymphadenopathy Tendonitis Tobacco use Surgical History Arthroscopy, Shoulder History of colonoscopy (~07/05/18) History of esophagogastroduodenoscopy (EGD) (~09/2020) S/P colonoscopy S/P tonsillectomy Trigger Finger release several Family History Mother Personal history of malignant neoplasm uterine, mets to colon Social History Smoking/Tobacco Use Status: Former Tobacco Use Quit Date: 05/14/22 Smoking risk assessment performed?: Yes Alcohol Intake: never Drug use: Never Substance use type: does not use Current gender identity: female Do you feel safe at home: Yes Do you feel safe in your relationship?: Yes Additional Social history: Live with daughter Exam Narrative Exam Narrative: Patient is alert and oriented, moist mucous membranes Respiratory rate within normal limits, sinus tachycardia without murmur Diffuse abdominal tenderness without rebound, mild guarding on left No pallor, well-healing and approximated surgical sites Course Vital Signs Vital signs: Vital Signs Temperature 37.5 C 09/09/22 20:42 Pulse 107 H 09/09/22 20:42 Respiratory Rate 09/09/22 20:42 Blood Pressure 142/109 H 09/09/22 20:42 Pulse Oximetry 95 09/09/22 20:42 Temperature 37.5 C 09/09/22 20:42 Pulse 107 H 09/09/22 20:42 Respiratory Rate 20 09/09/22 20:42 Respiratory Effort Normal, Non-Labored 09/09/22 20:46 Blood Pressure 142/109 H 09/09/22 20:42 Blood Pressure Position Sitting 09/09/22 20:42 Pulse Oximetry 95 09/09/22 20:42 Oxygen Delivery Method Room Air 09/09/22 20:42 Oxygen Flow Rate 0 09/09/22 20:42 Pain Level 5 09/09/22 21:55 Lab/Test Results Lab/Test Results: 09/09/22 22:05 Blood Blood Culture - Pending 09/09/22 22:16 Blood Blood Culture - Pending 09/09/22 21:05 Urine - Reflex from Ua Urine Culture - Pending Laboratory Tests Range/Units 09/09/22 09/09/22 09/09/22 20:55 20:55 21:05 WBC (4.4-10.8) 10^3/uL 15.90 H RBC (3.93-5.22) 10^6/uL 4.35 Hgb (11.2-15.7) g/dL 12.8 Hct (36.0-46.0) % 38.7 MCV (80-95) fL 89 MCH (27.0-33.0) pg 29.4 MCHC (32.0-36.0) % 33.1 RDW (11.7-14.6) % 12.5 Plt Count (130-400) 10^3/uL 492 H MPV (8.0-11.0) fL 9.6 Immature Gran % 0.0 Neutrophils % 78.0 Lymphocytes % 14.0 Monocytes % 8.0 Eosinophils % 0.0 Basophils % 0.0 Nucleated RBC % (0.0-0.3) % 0.0 Absolute Neutrophils (1.2-6.7) 10^3/uL 12.40 H Absolute Lymphocytes (1.2-3.4) 10^3/uL 2.23 Absolute Monocytes (0.1-0.8) 10^3/uL 1.27 H Absolute Eosinophils (0.0-0.7) 10^3/uL 0.00 Absolute Basophils (0.0-0.2) 10^3/uL 0.00 RBC Morphology Normal VBG Lactate (0.6-1.4) mmol/L Sodium (136-145) mmol/L 139 Potassium (3.5-5.1) mmol/L 3.6 Chloride (98-107) mmol/L 101 Carbon Dioxide (21.0-32.0) mmol/L 27.7 Anion Gap (3-11) mmol/L 10.3 BUN (7-18) mg/dL 7 Creatinine (0.55-1.02) mg/dL 1.0 Est GFR (CKD-EPI 2020) (mL/min/1.73m2) 63.30 Glucose (74-106) mg/dL 146 H Calcium (8.5-10.1) mg/dL 8.6 Total Bilirubin (0.2-1.0) mg/dL 0.4 AST (15-37) U/L 32 ALT (14-59) U/L 56 Alkaline Phosphatase (46-116) U/L 66 Total Protein (6.4-8.2) g/dL 7.2 Albumin (3.4-5.0) g/dL 3.1 L Lipase (16-77) U/L 24 Urine Color (Yellow) Yellow Urine Clarity (Clear) Sl Cloudy Urine pH (5-8) 6.5 Ur Specific [place] (1.005-1.025) 1.025 Urine Protein (Negative) mg/dL Negative Urine Ketones (Negative) mg/dL Negative Urine Blood (Negative) Trace-lysed H Urine Nitrite (Negative) Negative Urine Bilirubin (Negative) Negative Urine Urobilinogen (Up to 0.2) mg/dL 0.2 Ur Leukocyte Esterase (Negative) Moderate H Urine RBC (0-2) HPF 0-2 Urine WBC (0-5) HPF 10-20 H Ur Epithelial Cells (Negative) HPF Few Urine Crystals (Negative) HPF Negative Urine Bacteria (Negative) HPF Moderate Urine Casts (Negative) LPF Negative Urine Mucus (Negative) Negative Ur Culture Indicated? Yes Urine Glucose (Negative) mg/dL Negative Range/Units 09/09/22 22:07 WBC (4.4-10.8) 10^3/uL RBC (3.93-5.22) 10^6/uL Hgb (11.2-15.7) g/dL Hct (36.0-46.0) % MCV (80-95) fL MCH (27.0-33.0) pg MCHC (32.0-36.0) % RDW (11.7-14.6) % Plt Count (130-400) 10^3/uL MPV (8.0-11.0) fL Immature Gran % Neutrophils % Lymphocytes % Monocytes % Eosinophils % Basophils % Nucleated RBC % (0.0-0.3) % Absolute Neutrophils (1.2-6.7) 10^3/uL Absolute Lymphocytes (1.2-3.4) 10^3/uL Absolute Monocytes (0.1-0.8) 10^3/uL Absolute Eosinophils (0.0-0.7) 10^3/uL Absolute Basophils (0.0-0.2) 10^3/uL RBC Morphology VBG Lactate (0.6-1.4) mmol/L 0.7 Sodium (136-145) mmol/L Potassium (3.5-5.1) mmol/L Chloride (98-107) mmol/L Carbon Dioxide (21.0-32.0) mmol/L Anion Gap (3-11) mmol/L BUN (7-18) mg/dL Creatinine (0.55-1.02) mg/dL Est GFR (CKD-EPI 2020) (mL/min/1.73m2) Glucose (74-106) mg/dL Calcium (8.5-10.1) mg/dL Total Bilirubin (0.2-1.0) mg/dL AST (15-37) U/L ALT (14-59) U/L Alkaline Phosphatase (46-116) U/L Total Protein (6.4-8.2) g/dL Albumin (3.4-5.0) g/dL Lipase (16-77) U/L Urine Color (Yellow) Urine Clarity (Clear) Urine pH (5-8) Ur Specific [place] (1.005-1.025) Urine Protein (Negative) mg/dL Urine Ketones (Negative) mg/dL Urine Blood (Negative) Urine Nitrite (Negative) Urine Bilirubin (Negative) Urine Urobilinogen (Up to 0.2) mg/dL Ur Leukocyte Esterase (Negative) Urine RBC (0-2) HPF Urine WBC (0-5) HPF Ur Epithelial Cells (Negative) HPF Urine Crystals (Negative) HPF Urine Bacteria (Negative) HPF Urine Casts (Negative) LPF Urine Mucus (Negative) Ur Culture Indicated? Urine Glucose (Negative) mg/dL
[2022-09-09 22:40] LABS: Source Nasal/Nares
[2022-09-09] MEDS: metroNIDAZOLE 500 MG/100 ML BAG 100 MG IVPB (22:50)
[2022-09-09 23:11] LABS: COVID-19 PCR Negative (Negative)
[2022-09-09 23:42] VITALS: BP 124/66; PULSE 72; RESP 16; TEMP 36.9; O2SAT 98
[2022-09-10] VITALS (10 sets, daily range): BP systolic 119–151; BP diastolic 75–86; PULSE 65–77; RESP 16–20; TEMP 36.2–37.1; O2SAT 93–96
[2022-09-10] MEDS: Lactated Ringers 1,000 ML 100 ML IV ×2 (00:17→22:15)
[2022-09-10] MEDS: HYDROmorphone 2 MG/ML SYR 1 MG IVP ×4 (00:18→20:15)
[2022-09-10] MEDS: Simethicone 80 MG CHEW PO ×2 (03:01→18:39)
[2022-09-10] MEDS: Ketorolac 15 MG/ML VIAL IVP ×3 (03:01→21:47)
[2022-09-10] MEDS: metroNIDAZOLE 500 MG/100 ML BAG 100 MG IVPB ×3 (05:22→21:54)
--- NOTE | 2022-09-10 07:13 | W.PM.HP.N ---
Date of service: 09/10/22 Time of Service: 07:13 Assessment and Plan Assessment and plan (1) Perforated diverticulum: Status: Acute Assessment and plan: Her CAT scan shows evidence of ongoing acute diverticulitis. Contrast passes all the way to the rectum without any extravasation however. Certainly, there is no big abscess to target with drainage. Hopefully, this is just some irritation caused from the removal of the surgical drain. We will minimize her diet at this time, and repeat a CBC later today. We will continue with the metronidazole and levofloxacin for right now. If her leukocytosis increases, or her pain increases, then I think we should change to a broader spectrum antibiotic. Otherwise, we will try to get her through this with just medications. If she fails medical management, then I think sigmoid colectomy and end colostomy (Leonard's procedure) is the most reasonable choice at this point. History of Present Illness History of Present Illness Chief Complaint: Abdominal pain Narrative: Afsaneh 61 years old, and she was admitted with perforated diverticulitis last week. She underwent exploratory laparoscopy, and insertion of a surgical drain. She was treated with ciprofloxacin and metronidazole. She had improvement of her pain postoperatively, and resolution of her leukocytosis. He was discharged home on levofloxacin and metronidazole. She was seen in the office yesterday for some concerns about her surgical drain. Essentially, fluid was draining around it rather than through it. The drain was removed. She had increasing abdominal pain afterwards, and came into the emergency department. She was found to have a leukocytosis of 15,000. Review of Systems Constitutional Constitutional: Denies body ache(s), Reports fatigue and Denies fever(s) Eyes Eyes: Reports system reviewed and no additional complaints, except as documented ENT Ears, Nose, Mouth, and Throat: Reports system reviewed and no additional complaints, except as documented Cardiovascular Cardiovascular: Denies chest pain and Denies dyspnea Respiratory Respiratory: Denies cough and Denies dyspnea Gastrointestinal Gastrointestinal: Reports abdominal pain and Reports cramping Genitourinary Genitourinary: Denies difficulty voiding and Denies urinary incontinence Musculoskeletal Musculoskeletal: Reports back pain and Reports myalgias Neurologic Neurologic: Reports system reviewed and no additional complaints, except as documented Psychiatric Psychiatric: Reports system reviewed and no additional complaints, except as documented Endocrine Endocrine: Reports cold intolerance and Reports fatigue Hematologic/Lymphatic Hematologic/Lymphatic: Denies easy bleeding and Denies easy bruising PFSH All Active Problems Perforated diverticulum (Acute) COPD exacerbation (Acute) Duodenitis (Acute) Gastritis (Acute) Cervicalgia (Acute) Tendonitis of long head of biceps brachii of right shoulder (Acute) Degenerative arthritis of cervical spine (Acute) Arthritis of left glenohumeral joint (Acute) HPV (human papilloma virus) infection (Acute) IBS (irritable bowel syndrome) (Chronic) Skin lesion (Acute) Low back pain (Acute) Lumbar radiculopathy (Acute) Abdominal pain (Acute) Abdominal bloating (Acute) Blood in stool (Acute) Hx of allergic reaction (Acute) Closed fracture of right distal fibula (Acute) Shoulder pain (Acute) Trigger finger of all digits of both hands (Acute) Arthritis of right glenohumeral joint (Acute) No-show for appointment (Acute) Spondylosis, cervical (Acute) Carpal tunnel syndrome, bilateral (Acute) Shoulder pain, bilateral (Acute) Effusion of left knee (Acute) Situational depression (Chronic) Myalgia (Acute) Generalized osteoarthritis of multiple sites (Acute) Patellar tendinitis (Acute) Sinusitis (Acute) Mild memory disturbance (Acute) Rash, skin (Acute) Visit for screening mammogram (Acute) Preventative health care (Acute) Colonoscopy planned (Acute) Frequency of urination (Acute) Eye irritation (Acute) Dysuria (Acute) Ankle joint disorder (Acute) Hypoglycemia (Acute) Cough (Acute) Sinusitis, acute (Acute) Medical History ADHD Cervical spinal stenosis AGATHA III (cervical intraepithelial neoplasia III) Constipation, chronic COPD (chronic obstructive pulmonary disease) COVID Diaphoresis Dyspnea Edentulous Exposure to COVID-19 virus GERD (gastroesophageal reflux disease) Grief reaction Hemangioma of liver Hematemesis History of paresthesia HPV (human papilloma virus) anogenital infection Hyperlipidemia Liver lesion Minimally displaced zone I fracture of sacrum, sequela Nocturnal hypoxia Pneumonia Reactive inflammatory arthritis Restless leg syndrome Seasonal allergic reaction Sleep apnea Supraclavicular lymphadenopathy Tendonitis Tobacco use Surgical History Arthroscopy, Shoulder History of colonoscopy (~07/05/18) History of esophagogastroduodenoscopy (EGD) (~09/2020) S/P colonoscopy S/P tonsillectomy Trigger Finger release several Family History Mother Personal history of malignant neoplasm uterine, mets to colon Social History Smoking/Tobacco Use Status: Former Tobacco Use Quit Date: 05/14/22 Smoking risk assessment performed?: Yes Alcohol Intake: never Drug use: Never Substance use type: does not use Current gender identity: female Do you feel safe at home: Yes Do you feel safe in your relationship?: Yes Additional Social history: Live with daughter Meds Allergies and Home Medications Allergies Allergy/AdvReac Type Severity Reaction Status Date / Time acetaminophen Allergy Severe Hives Verified 09/08/22 12:23 [From Mapap (acetaminophen)] cephalexin [Cephalexin] Allergy Intermediate Skin Rash Unverified 09/01/22 13:24 Penicillins Allergy Intermediate rash with Unverified 09/01/22 13:24 all cillins ampicillin Allergy Mild Skin Rash Unverified 09/01/22 13:24 atorvastatin Allergy Mild Unverified 09/09/22 21:25 cefprozil [From Cefzil] Allergy Mild Skin Rash Unverified 09/01/22 13:24 Cephalosporins Allergy Mild Hives Unverified 09/01/22 13:24 clindamycin Allergy Mild Skin Rash Unverified 09/01/22 13:24 doxycycline Allergy Mild Skin Rash Unverified 09/01/22 13:24 varenicline [From Chantix] Allergy Mild Unverified 09/01/22 13:24 amoxicillin Allergy Unknown Hives Unverified 09/01/22 13:24 bupropion Allergy Unverified 09/09/22 21:28 cefuroxime [From Ceftin] Allergy Unverified 09/09/22 21:28 clarithromycin [From Biaxin] Allergy rash/hives Unverified 09/01/22 13:24 duloxetine [From Cymbalta] AdvReac Intermediate made me Unverified 09/01/22 13:24 feel very weird linaclotide [From Linzess] AdvReac Mild Diarrhea Unverified 09/01/22 13:24 nicotine [From Nicorette] AdvReac Mild Nauseaous Unverified 09/01/22 13:24 adhesive tape AdvReac Unknown Skin Rash Unverified 09/01/22 13:24 adhesive AdvReac Topical Unverified 09/01/22 13:24 Irritation banana AdvReac abd Unverified 09/01/22 13:24 bloating codeine AdvReac sick Unverified 09/01/22 13:24 hydrocodone [From Vicodin] AdvReac cold Verified 09/01/22 13:24 sweats, vomiting black hair dye Allergy Intermediate Hives Uncoded 09/01/22 13:24 eggs Allergy bloating Uncoded 09/01/22 13:24 Home Medications Medication Instructions Recorded Confirmed Type ibuprofen 200 mg tablet (Ibuprofen 200 mg PO QID PRN PRN 09/18/15 09/08/22 History IB) albuterol sulfate 2.5 mg/3 mL 2.5 mg inhalation Q4H PRN 06/26/19 09/08/22 History (0.083 %) solution for nebulization albuterol sulfate 90 mcg/actuation 2 puff inhalation Q4-5H PRN 06/26/19 09/08/22 History aerosol inhaler (ProAir HFA) pramipexole 0.125 mg tablet 0.125 mg PO DAILY 06/26/19 09/09/22 History (Mirapex) fluticasone propionate 50 1 spray intranasal DAILY PRN 06/26/20 09/08/22 History mcg/actuation nasal spray,suspension (Flonase Allergy Relief) oxycodone 10 mg tablet 10 mg PO QID PRN 08/28/20 09/09/22 History sucralfate 1 gram tablet (Carafate) 1 g PO QACHS #120 tabs 09/27/20 09/08/22 Rx aspirin 81 mg tablet,delayed 81 mg PO DAILY 05/12/22 09/09/22 History release docusate sodium 100 mg capsule 100 mg PO PRN PRN 05/12/22 09/08/22 History (Colace) fluticasone 250 mcg-salmeterol 50 1 inh inhalation BID 05/12/22 09/08/22 History mcg/dose blistr powdr for inhalation (Advair Diskus) fluticasone propionate 50 1 spray intranasal DAILY 05/12/22 09/08/22 History mcg/actuation nasal spray,suspension (Flonase Allergy Relief) lactobacillus combination no.9 4 10,000 mmu cells PO DAILY 05/12/22 09/09/22 History billion cell capsule (Adult 50 Plus Probiotic) umeclidinium 62.5 mcg/actuation 1 inh inhalation DAILY 05/12/22 09/08/22 History blister powder for inhalation (Incruse Ellipta) Inhaler, Assist Devices [Pocket 1 ea miscellaneous DIRECTED ##0 05/18/22 09/08/22 Rx Chamber] bupropion HCl 150 mg 24 hr tablet, 150 mg PO QAM #30 tabs 05/18/22 09/08/22 Rx extended release dextromethorphan-guaifenesin 10 10 ml PO Q4H PRN PRN #0 mL 05/18/22 09/08/22 Rx mg-100 mg/5 mL oral syrup gabapentin 100 mg capsule See Rx Instructions .Route 05/18/22 09/09/22 Rx .COMPLEX #90 caps prednisone 20 mg tablet 40 mg PO DAILY #3 tabs 05/18/22 09/08/22 Rx methylphenidate HCl 10 mg tablet 10 mg PO BID 06/18/22 09/09/22 History naloxone 4 mg/actuation nasal 4 mg intranasal Q2M PRN 06/18/22 09/09/22 History spray (Narcan) levofloxacin 750 mg tablet 750 mg PO QAM #5 tabs 09/06/22 09/08/22 Rx metronidazole 500 mg tablet 500 mg PO TID #15 tabs 09/06/22 09/08/22 Rx omeprazole 40 mg capsule,delayed 20 mg PO DAILY 09/09/22 09/09/22 History release Exam Const General: cooperative, comfortable and no acute distress Orientation: alert, awake and oriented x3 HENMT Head: normal to inspection Neck Neck: normal visual inspection, full ROM and supple Resp Effort & Inspection: normal respiratory effort Auscultation: clear to auscultation bilaterally Cardio Rate: regular rate Rhythm: regular rhythm GI Inspection: normal to inspection and non-distended Palpation: soft, guarding (Suprapubic) and no hernias Percussion: normal to percussion Auscultation: normal bowel sounds Skin General skin exam: no rashes or lesions noted Extrem Right lower extremity: no edema Left lower extremity: no edema Results Imaging Abdomen CT scan report/results: report reviewed and image reviewed CT scan - pelvis: report reviewed and image reviewed Labs 09/09/22 20:55 09/09/22 20:55 Labs: Laboratory Results - last 24 hr 09/09/22 09/09/22 09/09/22 20:55 20:55 21:05 WBC 15.90 H RBC 4.35 Hgb 12.8 Hct 38.7 MCV 89 MCH 29.4 MCHC 33.1 RDW 12.5 Plt Count 492 H MPV 9.6 Immature Gran % 0.0 Neutrophils % 78.0 Lymphocytes % 14.0 Monocytes % 8.0 Eosinophils % 0.0 Basophils % 0.0 Nucleated RBC % 0.0 Absolute Neutrophils 12.40 H Absolute Lymphocytes 2.23 Absolute Monocytes 1.27 H Absolute Eosinophils 0.00 Absolute Basophils 0.00 RBC Morphology Normal VBG Lactate Sodium 139 Potassium 3.6 Chloride 101 Carbon Dioxide 27.7 Anion Gap 10.3 BUN 7 Creatinine 1.0 Est GFR (CKD-EPI 2020) 63.30 Glucose 146 H Calcium 8.6 Total Bilirubin 0.4 AST 32 ALT 56 Alkaline Phosphatase 66 Total Protein 7.2 Albumin 3.1 L Lipase 24 Urine Color Yellow Urine Clarity Sl Cloudy Urine pH 6.5 Ur Specific [place] 1.025 Urine Protein Negative Urine Ketones Negative Urine Blood Trace-lysed H Urine Nitrite Negative Urine Bilirubin Negative Urine Urobilinogen 0.2 Ur Leukocyte Esterase Moderate H Urine RBC 0-2 Urine WBC 10-20 H Ur Epithelial Cells Few Urine Crystals Negative Urine Bacteria Moderate Urine Casts Negative Urine Mucus Negative Ur Culture Indicated? Yes Urine Glucose Negative COVID-19 Source SARS-CoV-2 (PCR) 09/09/22 09/09/22 22:07 22:36 WBC RBC Hgb Hct MCV MCH MCHC RDW Plt Count MPV Immature Gran % Neutrophils % Lymphocytes % Monocytes % Eosinophils % Basophils % Nucleated RBC % Absolute Neutrophils Absolute Lymphocytes Absolute Monocytes Absolute Eosinophils Absolute Basophils RBC Morphology VBG Lactate 0.7 Sodium Potassium Chloride Carbon Dioxide Anion Gap BUN Creatinine Est GFR (CKD-EPI 2020) Glucose Calcium Total Bilirubin AST ALT Alkaline Phosphatase Total Protein Albumin Lipase Urine Color Urine Clarity Urine pH Ur Specific [place] Urine Protein Urine Ketones Urine Blood Urine Nitrite Urine Bilirubin Urine Urobilinogen Ur Leukocyte Esterase Urine RBC Urine WBC Ur Epithelial Cells Urine Crystals Urine Bacteria Urine Casts Urine Mucus Ur Culture Indicated? Urine Glucose COVID-19 Source Nasal/Nares SARS-CoV-2 (PCR) Negative Last Vital Signs Temp 98.6 F 09/10/22 03:48 Pulse 72 09/10/22 03:48 Resp 16 09/10/22 03:48 BP 119/75 09/10/22 03:48 Pulse Ox 96 09/10/22 03:48 Time Spent Time spent with Patient: 40-54 minutes Time was spent: preparing to see the patient(eg.review tests), obtaining and/or reviewing separately otained hiistory, ordering medications,tests, procedures, indepentently interpreting results and counseling the patient
[2022-09-10] MEDS: levoFLOXacin 500 MG, levoFLOXacin 250 MG 750 MG PO (08:35)
--- NOTE | 2022-09-10 10:53 | INITIAL_ITS ---
- If Service Date Differs Date of service: 09/10/22 Time of Service: 10:53 Care Management Initial Assess REASON FOR HOSPITALIZATION:: Perforated Diverticulitis PAST MEDICAL HISTORY/PAST SURGICAL HISTORY:: All Active Problems. Perforated diverticulum (Acute). COPD exacerbation (Acute). Duodenitis (Acute). Gastritis (Acute). Cervicalgia (Acute). Tendonitis of long head of biceps brachii of right shoulder (Acute). Degenerative arthritis of cervical spine (Acute). Arthritis of left glenohumeral joint (Acute). HPV (human papilloma virus) infection (Acute). IBS (irritable bowel syndrome) (Chronic). Skin lesion (Acute). Low back pain (Acute). Lumbar radiculopathy (Acute). Abdominal pain (Acute). Abdominal bloating (Acute). Blood in stool (Acute). Hx of allergic reaction (Acute). Closed fracture of right distal fibula (Acute). Shoulder pain (Acute). Trigger finger of all digits of both hands (Acute). Arthritis of right glenohumeral joint (Acute). No-show for appointment (Acute). Spondylosis, cervical (Acute). Carpal tunnel syndrome, bilateral (Acute). Shoulder pain, bilateral (Acute). Effusion of left knee (Acute). Situational depression (Chronic). Myalgia (Acute). Generalized osteoarthritis of multiple sites (Acute). Patellar tendinitis (Acute). Sinusitis (Acute). Mild memory disturbance (Acute). Rash, skin (Acute). Visit for screening mammogram (Acute). Preventative health care (Acute). Colonoscopy planned (Acute). Frequency of urination (Acute). Eye irritation (Acute). Dysuria (Acute). Ankle joint disorder (Acute). Hypoglycemia (Acute). Cough (Acute). Sinusitis, acute (Acute). Medical History. ADHD. Cervical spinal stenosis. AGATHA III (cervical intraepithelial neoplasia III). Constipation, chronic. COPD (chronic obstructive pulmonary disease). COVID. Diaphoresis. Dyspnea. Edentulous. Exposure to COVID-19 virus. GERD (gastroesophageal reflux disease). Grief reaction. Hemangioma of liver. Hematemesis. History of paresthesia. HPV (human papilloma virus) anogenital infection. Hyperlipidemia. Liver lesion. Minimally displaced zone I fracture of sacrum, sequela. Nocturnal hypoxia. Pneumonia. Reactive inflammatory arthritis. Restless leg syndrome. Seasonal allergic reaction. Sleep apnea. Supraclavicular lymphadenopathy. Tendonitis. Tobacco use. Surgical History. Arthroscopy, Shoulder. History of colonoscopy (~07/05/18). History of esophagogastroduodenoscopy (EGD) (~09/2020). S/P colonoscopy. S/P tonsillectomy. Trigger Finger release. several PREVIOUS FUNCTIONAL STATUS/SOCIAL/FAMILY SUPPORTS:: Afsaneh lives in a single [facility] in [place] with her daughter Dodie, 2 sons and a granddaughter. She is disabled but is independent at baseline. Afsaneh does not receive any services at home. CURRENT FUNCTIONAL STATUS:: Afsaneh was sitting up in bed when CM met with her. She stated that she is in a lot of pain, and her RN recently administered some IV pain medication. She discussed how she pushed to be discharged over the weekend, and feels that she may have left too soon. She stated that per MD, she is being treated with IV antibiotics and pain medication. Her PCP called to check on her while CM was in the room. She expressed gratitude for the call, and stated that she feels very well supported by her PCP. CM will continue to follow. ADVANCE DIRECTIVES:: None on file. CM will offer forms. Has patient been provided with info about the portal/API?: Yes Did the patient sign up for the portal?: Yes (active) CODE STATUS:: Full Code INSURANCE COVERAGE / FINANCIAL ISSUES:: LISA CURRENT HOME/COMMUNITY SERVICES/EQUIPMENT:: None PRIMARY CARE PHYSICIAN:: Soraida Sims POTENTIAL DISCHARGE NEEDS:: Follow up bhavik PCP and plan of care PATIENT/FAMILY EDUCATION NEEDS:: Review of discharge instructions, limitations, activity, ostomy care, medications, diet, follow up plan, discuss Ask Me Three. ANTICIPATED BARRIERS TO DISCHARGE:: None identified at this time TRANSPORTATION:: Via private vehicle by family PLAN:: Anticipate Afsaneh will be discharged home with no new services when medically cleared. She will follow up with her community providers and plan of care and transport with her daughter, CM will follow and assess for discharge concerns. Readmission - Within the Past 30 Days Yes or No: Y - Date of First Admission Date of 1st Admission: 09/01/22 - Date of this Admission Date of Admission: 09/10/22 This admission was: Through ED - Office Visit Since 1st Admission Have you seen your PCP in the office since discharge?: No - Speicalist Appointments Have you seen any other specialist since your 1st Admission?: Yes Date you saw the Specialist: 09/08/22 Specialist Seen: Dr. Tanner, surgical services - I. Interview patient and/or Family Difficulty reaching your doctor or getting an office appt?: No Have you had trouble purchasing/ or taking medication?: No How do you take your medications and set up your pills?: Independently Have you had trouble with getting meals at home?: No Did you feel ready for discharge when you left the last time: Yes Why did you not feel ready for discharge?: Afsaneh stated that she felt ready, and pushed to be discharged, although now she feels that she returned home too soon. Were services received that you thought were set up on disch: No If patient did not receive services, were there orders at: No Reason there were no orders at discharge: Pt independent Did you call your physician beore you came to the ED?: Yes Did your physician tell you to come in?: Yes How do you think you became sick enough to come back?: Afsaneh stated that she felt that her drain was plugged and was in a lot of pain. She called the surgical office, where they removed the drain. She continued to have increased pain, therefore she went to the ED. - ED visits How many ED visits in the past 12 months: 3 - Assessment for Readmission Summary of readmission circumstances, based upon interviews: Afsaneh reported that she returned to the ED after communicating with the surgeon regarding her increased pain after her drain was removed. She stated that she felt that she may have left too soon, but that she wanted to leave, so she advocated for discharge. She reported that she continues to have pain, but it is being well managed by nursing. She stated that she is independent at baseline, and does not anticipate the need for services upon discharge.
[2022-09-10 15:24] LABS: HCT 34.6 % (36.0-46.0); HGB 11.3 g/dL (11.2-15.7); MCH 29.4 pg (27.0-33.0); MCHC 32.7 % (32.0-36.0); MCV 90 fL (80-95); MPV 9.5 fL (8.0-11.0); Platelet Count 430 10^3/uL (130-400); RBC 3.84 10^6/uL (3.93-5.22); RDW 12.8 % (11.7-14.6); RDW-SD 42.2 fL; WBC 12.64 10^3/uL (4.4-10.8)
[2022-09-10] MEDS: HYDROmorphone 2 MG TAB PO (18:39)
[2022-09-10] MEDS: Gabapentin 300 MG CAP PO (21:47)
[2022-09-11] VITALS (10 sets, daily range): BP systolic 120–162; BP diastolic 67–79; PULSE 79–98; RESP 14–22; TEMP 36.6–37.9; O2SAT 94–95
[2022-09-11] MEDS: HYDROmorphone 2 MG/ML SYR 1 MG IVP ×2 (00:15→05:10)
[2022-09-11] MEDS: HYDROmorphone 2 MG TAB PO ×4 (02:51→21:15)
[2022-09-11] MEDS: Simethicone 80 MG CHEW PO ×3 (02:51→17:17)
[2022-09-11] MEDS: metroNIDAZOLE 500 MG/100 ML BAG 100 MG IVPB ×3 (05:10→21:17)
[2022-09-11] MEDS: Ketorolac 15 MG/ML VIAL IVP ×4 (05:33→22:58)
[2022-09-11 06:46] LABS: HCT 36.7 % (36.0-46.0); HGB 11.8 g/dL (11.2-15.7); MCH 28.8 pg (27.0-33.0); MCHC 32.2 % (32.0-36.0); MCV 90 fL (80-95); MPV 10.2 fL (8.0-11.0); Platelet Count 480 10^3/uL (130-400); RDW 12.6 % (11.7-14.6); RDW-SD 41.1 fL; WBC 18.95 10^3/uL (4.4-10.8)
[2022-09-11] MEDS: Budesonide/Formoterol 160/4.5 6 GM 60 PUFF INH IH (08:39)
[2022-09-11] MEDS: levoFLOXacin 500 MG, levoFLOXacin 250 MG 750 MG PO (08:49)
[2022-09-11] MEDS: Pramipexole 0.25 MG TAB 0.125 MG PO (08:50)
[2022-09-11] MEDS: Omeprazole 20 MG CAPCR PO (08:50)
[2022-09-11] MEDS: Gabapentin 100 MG CAP PO ×2 (08:50→12:05)
[2022-09-11] MEDS: Lactobacillus Acidophilus CAP 1 CAP PO (08:50)
[2022-09-11] MEDS: buPROPion-XL 150 MG TABCR PO (08:50)
[2022-09-11] MEDS: Methylphenidate 10 MG TAB PO (08:51)
[2022-09-11] MEDS: Lactated Ringers 1,000 ML 100 ML IV (09:06)
--- NOTE | 2022-09-11 10:07 | W.PM.PROGNOT ---
Date of Service Date of service: 09/11/22 Time of Service: 10:07 Assessment and Plan Assessment and plan (1) Perforated diverticulum: Status: Acute Assessment and plan: PAD #2- Increased Leukocytosis. Pain is sharp and intermittent. Abdomen is soft Plan: Clear liquids ADD Vancomycin while waiting for Urine culture results Up at least TID Incentive spirometer Discussed with patient the plan and adition of another antibiotic If no improvement in symptoms then may need to have exploratory laparotomy, but right now her exam is very benign (2) GERD (gastroesophageal reflux disease): Assessment and plan: On omeprazole (3) UTI (urinary tract infection): Status: Acute Assessment and plan: Awaiting culture results Subjective Subjective Interval history since last seen: Mrs Lowe complains of intermittent sharp pain. The pain is worse right before she has to go use the bathroom either to urinate or to have a bowel movement. She has had 2 bowel movements. She states that one of them was a good sized. This does not seem to be in the records. She has no nausea or vomiting. She does not have an appetite. She did have a slight fever of 100.2. She has not really been getting up much. Exam Const General: comfortable and no acute distress Orientation: alert and oriented x3 HENMT Head: normocephalic and atraumatic Resp Auscultation: clear to auscultation bilaterally and diminished lung sounds bilaterally in the lower lung matos Cardio Rate: regular rate Rhythm: regular rhythm GI Inspection: incision (c/d/i) Palpation: soft, no hepatosplenomegaly and nontender Auscultation: hypoactive bowel sounds Objective Last Vital Signs Temp 100.2 F H 09/11/22 09:17 Pulse 98 H 09/11/22 07:27 Resp 22 09/11/22 07:27 BP 134/75 09/11/22 07:27 Pulse Ox 94 09/11/22 07:27 Laboratory Results - last 24 hr 09/10/22 09/11/22 15:17 05:52 WBC 12.64 H 18.95 H RBC 3.84 L 4.10 Hgb 11.3 11.8 Hct 34.6 L 36.7 MCV 90 90 MCH 29.4 28.8 MCHC 32.7 32.2 RDW 12.8 12.6 Plt Count 430 H 480 H MPV 9.5 10.2 Time Spent with Patient Time Spent with Patient: 25-34 minutes Time was spent: preparing to see the patient(eg.review tests), obtaining and/or reviewing separately otained hiistory, ordering medications,tests, procedures, indepentently interpreting results and counseling the patient
[2022-09-11] MEDS: Normal Saline Flush 10 ML SYR ×2 (10:35→17:18)
[2022-09-11] MEDS: VANCOMYCIN/WATER (PEG) 1.25 GM/250 ML BAG IVPB (10:39)
--- NOTE | 2022-09-11 12:02 | PDOC.CMPRO ---
- If Service Date Differs Date of service: 09/11/22 Time of Service: 12:02 Care Management Progress Note S/O: Afsaneh was sitting up in her bed when CM met with her. She stated that she had a hard night, but is feeling much better today. She stated that per MD, her abx were changed this morning, which she feels is making a difference. She stated that she is able to have clear liquids now, but doesn't have much of an appetite. She is happy that she is feeling much more comfortable today. CM will continue to follow. A: Afsaneh is a 61 year old female admitted to [facility] on 09/09/22 for perforated diverticulitis. P: Anticipate Afsaneh will be discharged home with no new services when medically cleared. She will follow up with her community providers and plan of care and transport with her daughter, ERNESTINE will follow and assess for discharge concerns.
--- NOTE | 2022-09-11 15:48 | CHAPLAIN ---
Afsaneh was watching a reality show on her phone when I visited. She was getting ready to go for a walk with nursing. I explained my role and offered support.
[2022-09-11] MEDS: VANCOMYCIN/WATER (PEG) 750 MG/150 ML BAG 150 MG IVPB (19:21)
[2022-09-11] MEDS: Gabapentin 300 MG CAP PO (21:15)
[2022-09-12] VITALS (51 sets, daily range): BP systolic 101–160; BP diastolic 56–84; PULSE 74–106; RESP 8–25; TEMP 36.3–39.1; O2SAT 92–99; BMI 32.1
--- NOTE | 2022-09-12 | DI.CT_ITS ---
Exam(s) CT ABDOMEN PELVIS W EXAM: CT ABDOMEN PELVIS W CLINICAL HISTORY: Leukocytosis, pain, ? abscess. TECHNIQUE: Imaging Protocol: Axial computed tomography images with coronal and sagittal reformatted images were created and reviewed CONTRAST MATERIAL: Intravenous: Omnipaque-350 100cc Oral: Yes. Oral contrast was also administered for bowel opacification. COMPARISON: CT CT ABDOMEN PELVIS W from 09/01/[address] ABDOMEN PELVIS W from 09/04/[address] ABDOMEN PELVIS W from 09/09/2022 FINDINGS: VISUALIZED LUNG BASES: Mild atelectasis and mild infiltrate in the lung bases. No significant pleura l effusions.. ABDOMEN: There is prominent pneumoperitoneum now evident. This is related to the abnormal findings described below in the sigmoid. LIVER: There is hepatic steatosis. There is no evidence of mass nor abscess in the liver nor gas wit hin intrahepatic portal veins. No dilated intrahepatic ducts. GALLBLADDER/BILIARY: No obvious gallbladder pathology. CBD is not dilated. PANCREAS: No evidence of pancreatic mass nor dilatation of the pancreatic duct. SPLEEN: Spleen is not enlarged. No obvious intrasplenic lesions. Splenic and portal veins are paten t. ADRENALS: There are no significant adrenal masses. KIDNEYS:No cysts evident. No solid renal masses. No calculi nor hydronephrosis.. ABDOMINAL AORTA: Abdominal aorta is not enlarged. LYMPH NODES:There is no retroperitoneal nor paraaortic adenopathy. ABDOMINAL WALL: No evidence of significant anterior abdominal wall nor inguinal hernia. GI: No evidence of small-bowel obstruction. PELVIS: GI: No evidence of appendicitis.Extensive sigmoid diverticulosis again noted as well as sequela of re cent episode of severe diverticulitis. There is presently a large abscess interposed between the sig moid and posterior wall the uterus, this abscess measuring 8.5 cm AP by 5.5 cm cephalocaudal by 6 cm wide. There is no gas within the urinary bladder to suggest obvious fistulous communication. LYMPH NODES: There is no intrapelvic nor inguinal adenopathy. REPRODUCTIVE: Uterus size age-appropriate. No ovarian masses identified. URINARY BLADDER: No mass nor gas within the bladder lumen. OSSEOUS: No fractures and no significant osseous lesions. IMPRESSION: 1. The main finding here is prominent pneumoperitoneum and a large pelvic abscess measuring approxima tely 8.5 x 5.5 x 6 cm, this related to recent bout of sigmoid diverticulitis superimposed upon extens elpidio diverticulosis of the sigmoid. This abscess has further increased in size. There is no gas with in the portal venous system and there is no abscess within the liver. There is also no gas within th e urinary bladder to suggest fistulous communication. This abscess is interposed between the culprit sigmoid and the subjacent posterior wall of the uterus. Surgical consultation recommended. First read by [facility] Final report called by myself to surgical floor 09/12/2022 at 4 p.m.. Report given to nurse. Armando soliman this patient is scheduled for surgery. RADIATION DOSE DELIVERED: 1,002.48mGy.cm Total DLP DATA REPOSITORY: All CT scans at this facility are submitted to the National Radiology Data Registry (NRDR) Dose Index Registry (DIR) with the [employer] (ACR). RADIATION OPTIMIZATION: All CT scans at this facility use at least one of these dose optimization te chniques: automated exposure control; mA and/or kV adjustment per patient size (includes targeted exa ms where dose is matched to clinical indication); or iterative reconstruction.
[2022-09-12] MEDS: Lactated Ringers 1,000 ML 75 ML IV (01:02)
[2022-09-12] MEDS: HYDROmorphone 2 MG TAB PO ×2 (04:40→10:55)
[2022-09-12] MEDS: VANCOMYCIN/WATER (PEG) 750 MG/150 ML BAG 150 MG IVPB ×2 (04:51→21:36)
[2022-09-12] MEDS: metroNIDAZOLE 500 MG/100 ML BAG 100 MG IVPB ×3 (05:54→23:01)
[2022-09-12] MEDS: Ketorolac 15 MG/ML VIAL IVP ×2 (06:32→12:19)
[2022-09-12] MEDS: HYDROmorphone 2 MG/ML VIAL 1 MG IVP (07:47)
[2022-09-12 07:49] LABS: Abs Immature Grans 0.12 10^3/uL (0.0-0.06); Absolute Basophil Count 0.06 10^3/uL (0.0-0.2); Absolute Eosinophil Count 0.24 10^3/uL (0.0-0.7); Absolute Lymphocyte Count 1.82 10^3/uL (1.2-3.4); Basophils % 0.3; Eosinophils % 1.2; HCT 35.1 % (36.0-46.0); HGB 11.5 g/dL (11.2-15.7); Immature Grans % 0.6; Lymphocytes % 9.1; MCH 29.3 pg (27.0-33.0); MCHC 32.8 % (32.0-36.0); MCV 89 fL (80-95); MPV 10.5 fL (8.0-11.0); Monocytes % 10.7; Neutrophils % 78.1; Platelet Count 480 10^3/uL (130-400); RBC 3.93 10^6/uL (3.93-5.22); RDW 12.7 % (11.7-14.6); RDW-SD 41.6 fL; WBC 20.05 10^3/uL (4.4-10.8)
[2022-09-12] MEDS: Gabapentin 100 MG CAP PO ×2 (07:51→12:19)
[2022-09-12] MEDS: Omeprazole 20 MG CAPCR PO (07:51)
[2022-09-12] MEDS: levoFLOXacin 500 MG, levoFLOXacin 250 MG 750 MG PO (07:51)
[2022-09-12] MEDS: buPROPion-XL 150 MG TABCR PO (07:51)
[2022-09-12] MEDS: Pramipexole 0.25 MG TAB 0.125 MG PO (07:51)
[2022-09-12] MEDS: Methylphenidate 10 MG TAB PO (07:51)
[2022-09-12] MEDS: Lactobacillus Acidophilus CAP 1 CAP PO (07:51)
[2022-09-12] MEDS: Normal Saline Flush 10 ML SYR ×2 (07:55→13:12)
[2022-09-12 07:56] LABS: Absolute Monocyte Count 2.15 10^3/uL (0.1-0.8); Absolute Neutrophil Count 15.66 10^3/uL (1.2-6.7)
[2022-09-12 08:03] LABS: Anion Gap 10.8 mmol/L (3-11); BUN 6 mg/dL (7-18); CO2 26.2 mmol/L (21.0-32.0); Calcium 8.2 mg/dL (8.5-10.1); Chloride 105 mmol/L (98-107); Glucose 110 mg/dL (74-106); Magnesium 1.9 mg/dL (1.8-2.4); Potassium 3.3 mmol/L (3.5-5.1); Sodium 142 mmol/L (136-145)
[2022-09-12] MEDS: Budesonide/Formoterol 160/4.5 6 GM 60 PUFF INH IH (08:23)
[2022-09-12 08:33] LABS: Diff Comment Agrees w/ Instrument; RBC Morphology Normal
[2022-09-12 10:16] LABS: C-Reactive Protein 9.88 mg/dL (0.0-0.3)
[2022-09-12] MEDS: Simethicone 80 MG CHEW PO (10:16)
[2022-09-12 10:36] LABS: Procalcitonin 0.1 ng/mL
--- NOTE | 2022-09-12 11:20 | W.PM.PROGNOT ---
Date of Service Date of service: 09/12/22 Time of Service: 11:21 Assessment and Plan Assessment and plan (1) Perforated diverticulum: Status: Acute Assessment and plan: Increased WBC count. Precalcitonin is normal. CRP is elevated Abdomen is soft and tender in the lower abdomen. Will repeat the CT scan with contrast to r/o abscess If she has an abscess the hopefully it will be amenable to IR drainage If no abscess but increase in air may need ex-lap Will reassess after the CT scan is done (2) COPD exacerbation: Status: Acute (3) Hypokalemia: Status: Acute Subjective Subjective Interval history since last seen: Afsaneh has a headache this morning. Her pain is about the same. It is located in the lower abdomen NO N/V. Is passing flatus and having BM's She is having low grade fevers Exam Const General: cooperative and no acute distress HENMT Head: normocephalic and atraumatic Resp Effort & Inspection: normal respiratory effort Cardio Rate: regular rate Rhythm: regular rhythm GI Palpation: soft, no hepatosplenomegaly and tender (RLQ and LLQ and suprapubic) with no rebound tenderness Auscultation: normal bowel sounds Objective Last Vital Signs Temp 100.4 F H 09/12/22 11:08 Pulse 98 H 09/12/22 11:08 Resp 16 09/12/22 11:08 BP 135/74 09/12/22 11:08 Pulse Ox 95 09/12/22 11:08 Laboratory Results - last 24 hr 09/12/22 09/12/22 09/12/22 06:50 06:50 06:50 WBC 20.05 H RBC 3.93 Hgb 11.5 Hct 35.1 L MCV 89 MCH 29.3 MCHC 32.8 RDW 12.7 Plt Count 480 H MPV 10.5 Immature Gran % 0.6 Neutrophils % 78.1 Lymphocytes % 9.1 Monocytes % 10.7 Eosinophils % 1.2 Basophils % 0.3 Nucleated RBC % 0.0 Absolute Neutrophils 15.66 H Absolute Lymphocytes 1.82 Absolute Monocytes 2.15 H Absolute Eosinophils 0.24 Absolute Basophils 0.06 RBC Morphology Normal Sodium 142 Potassium 3.3 L Chloride 105 Carbon Dioxide 26.2 Anion Gap 10.8 BUN 6 L Creatinine 1.0 Est GFR (CKD-EPI 2020) 63.30 Glucose 110 H Calcium 8.2 L Magnesium 1.9 C-Reactive Protein 9.88 H Procalcitonin 09/12/22 06:50 WBC RBC Hgb Hct MCV MCH MCHC RDW Plt Count MPV Immature Gran % Neutrophils % Lymphocytes % Monocytes % Eosinophils % Basophils % Nucleated RBC % Absolute Neutrophils Absolute Lymphocytes Absolute Monocytes Absolute Eosinophils Absolute Basophils RBC Morphology Sodium Potassium Chloride Carbon Dioxide Anion Gap BUN Creatinine Est GFR (CKD-EPI 2020) Glucose Calcium Magnesium C-Reactive Protein Procalcitonin 0.1 Time Spent with Patient Time Spent with Patient: 25-34 minutes Time was spent: preparing to see the patient(eg.review tests), obtaining and/or reviewing separately otained hiistory, ordering medications,tests, procedures, indepentently interpreting results and counseling the patient
[2022-09-12] MEDS: POTASSIUM CHLORIDE 20 MEQ/100 ML BAG 50 MEQ IVPB (12:19)
[2022-09-12] MEDS: Omnipaque 350 MG/ML 100 ML BTL IJ (14:13)
[2022-09-12] MEDS: Normal Saline - Diluent 50 ML VIAL IJ (14:14)
[2022-09-12] MEDS: Omnipaque 350 MG/ML 50 ML BTL PO (14:15)
[2022-09-12] MEDS: Breeza Beverage 473 ML BTL PO (14:20)
--- NOTE | 2022-09-12 15:01 | DI.VRAD_ITS ---
Addendum created by Blaise Leone MD on 09/12/2022 3:10:09 PM EDT: THIS REPORT CONTAINS FINDINGS THAT MAY BE CRITICAL TO PATIENT CARE. The findings were verbally communicated via telephone conference at 3:10 PM EST on 09/12/2022 with ANGEL Santoro. The findings were acknowledged and understood. Initial report created on 09/12/2022 3:00:50 PM EDT: PROCEDURE INFORMATION: Exam: CT Abdomen And Pelvis With Contrast Exam date and time: 09/12/2022 2:20 PM Age: 61 years old Clinical indication: Abdominal pain; Patient HX: Leukocytosis, pain, ? abscess; Additional info: ? Perf diverticulitis TECHNIQUE: Imaging protocol: Computed tomography of the abdomen and pelvis with contrast. Contrast material: OMNIPAQUE 350; Contrast volume: 100 ml; Contrast route: INTRAVENOUS (IV); COMPARISON: CT ABDOMEN PELVIS W 09/09/2022 8:57 PM FINDINGS: Lungs: Subsegmental atelectasis in the sulcus of each lung. Liver: Normal. No mass. Gallbladder and bile ducts: Normal. No calcified stones. No ductal dilation. Pancreas: Normal. No ductal dilation. Spleen: Normal. No splenomegaly. Adrenal glands: Normal. No mass. Kidneys and ureters: Normal. No hydronephrosis. Stomach and bowel: The orally administered contrast made it into the rectum. There are multiple diverticula. The distal portion of the segmentally wall is thickened. There has been perforation of one of the diverticulum into an abscess. Seen to best advantage on the sagittal images is the large abscess measuring 9.2 cm in length and up to 5.2 cm in diameter. This is inseparable from the posterior margin of the anteverted uterus. It has enlarged in size since the prior examination when it measured 7 x 3.4 cm. Appendix: No evidence of appendicitis. Intraperitoneal space: The free intraperitoneal air has increased in volume since the prior exam. A portion of the air has dissected in the extraperitoneal fascia posterior to the rectus abdominis muscle and the left external muscles. Vasculature: The vasculature demonstrates diffuse mild atherosclerotic calcification. No abdominal aortic aneurysm Lymph nodes: Unremarkable. No enlarged lymph nodes. Urinary bladder: Unremarkable as visualized. Reproductive: The uterus adjacent to the abscess is unchanged and unremarkable. There are no adnexal masses. Bones/joints: Unremarkable. No acute fracture. Soft tissues: Unremarkable. IMPRESSION: 1. Diverticulitis with perforation and abscess cavity along the posterior margin of the uterus. There is more free air and now air within the soft tissues of the anterior abdominal wall. 2. Mild atherosclerotic peripheral vascular disease. Dictated and Authenticated by: Blaise Leone MD. Ordering:MACIEJ Camejo MD
--- NOTE | 2022-09-12 15:42 | ANES.PREOP_ITS ---
General Info Date of Service Date Performed: 09/12/22 Height: 5 ft 1 in Weight: 77.111 kg Body Mass Index (BMI): 32.1 Meds Allergies and Home Medications Allergies Allergy/AdvReac Type Severity Reaction Status Date / Time acetaminophen Allergy Severe Hives Verified 09/08/22 12:23 [From Mapap (acetaminophen)] cephalexin [Cephalexin] Allergy Intermediate Skin Rash Unverified 09/01/22 13:24 Penicillins Allergy Intermediate rash with Unverified 09/01/22 13:24 all cillins ampicillin Allergy Mild Skin Rash Unverified 09/01/22 13:24 atorvastatin Allergy Mild Unverified 09/09/22 21:25 cefprozil [From Cefzil] Allergy Mild Skin Rash Unverified 09/01/22 13:24 Cephalosporins Allergy Mild Hives Unverified 09/01/22 13:24 clindamycin Allergy Mild Skin Rash Unverified 09/01/22 13:24 doxycycline Allergy Mild Skin Rash Unverified 09/01/22 13:24 varenicline [From Chantix] Allergy Mild Unverified 09/01/22 13:24 amoxicillin Allergy Unknown Hives Unverified 09/01/22 13:24 bupropion Allergy Unverified 09/09/22 21:28 cefuroxime [From Ceftin] Allergy Unverified 09/09/22 21:28 clarithromycin [From Biaxin] Allergy rash/hives Unverified 09/01/22 13:24 duloxetine [From Cymbalta] AdvReac Intermediate made me Unverified 09/01/22 13:24 feel very weird linaclotide [From Linzess] AdvReac Mild Diarrhea Unverified 09/01/22 13:24 nicotine [From Nicorette] AdvReac Mild Nauseaous Unverified 09/01/22 13:24 adhesive tape AdvReac Unknown Skin Rash Unverified 09/01/22 13:24 adhesive AdvReac Topical Unverified 09/01/22 13:24 Irritation banana AdvReac abd Unverified 09/01/22 13:24 bloating codeine AdvReac sick Unverified 09/01/22 13:24 hydrocodone [From Vicodin] AdvReac cold Verified 09/01/22 13:24 sweats, vomiting black hair dye Allergy Intermediate Hives Uncoded 09/01/22 13:24 eggs Allergy bloating Uncoded 09/01/22 13:24 Home Medication Medication Instructions Recorded ibuprofen 200 mg tablet (Ibuprofen 200 mg PO QID PRN PRN 09/18/15 IB) albuterol sulfate 2.5 mg/3 mL 2.5 mg inhalation Q4H PRN 06/26/19 (0.083 %) solution for nebulization albuterol sulfate 90 mcg/actuation 2 puff inhalation Q4-5H PRN 06/26/19 aerosol inhaler (ProAir HFA) pramipexole 0.125 mg tablet 0.125 mg PO DAILY 06/26/19 (Mirapex) fluticasone propionate 50 1 spray intranasal DAILY PRN 06/26/20 mcg/actuation nasal spray,suspension (Flonase Allergy Relief) oxycodone 10 mg tablet 10 mg PO QID PRN 08/28/20 sucralfate 1 gram tablet (Carafate) 1 g PO QACHS #120 tabs 09/27/20 aspirin 81 mg tablet,delayed 81 mg PO DAILY 05/12/22 release docusate sodium 100 mg capsule 100 mg PO PRN PRN 05/12/22 (Colace) fluticasone 250 mcg-salmeterol 50 1 inh inhalation BID 05/12/22 mcg/dose blistr powdr for inhalation (Advair Diskus) fluticasone propionate 50 1 spray intranasal DAILY 05/12/22 mcg/actuation nasal spray,suspension (Flonase Allergy Relief) lactobacillus combination no.9 4 10,000 mmu cells PO DAILY 05/12/22 billion cell capsule (Adult 50 Plus Probiotic) umeclidinium 62.5 mcg/actuation 1 inh inhalation DAILY 05/12/22 blister powder for inhalation (Incruse Ellipta) Inhaler, Assist Devices [Pocket 1 ea miscellaneous DIRECTED ##0 05/18/22 Chamber] bupropion HCl 150 mg 24 hr tablet, 150 mg PO QAM #30 tabs 05/18/22 extended release dextromethorphan-guaifenesin 10 10 ml PO Q4H PRN PRN #0 mL 05/18/22 mg-100 mg/5 mL oral syrup gabapentin 100 mg capsule See Rx Instructions .Route 05/18/22 .COMPLEX #90 caps prednisone 20 mg tablet 40 mg PO DAILY #3 tabs 05/18/22 methylphenidate HCl 10 mg tablet 10 mg PO BID 06/18/22 naloxone 4 mg/actuation nasal 4 mg intranasal Q2M PRN 06/18/22 spray (Narcan) levofloxacin 750 mg tablet 750 mg PO QAM #5 tabs 09/06/22 metronidazole 500 mg tablet 500 mg PO TID #15 tabs 09/06/22 omeprazole 40 mg capsule,delayed 20 mg PO DAILY 09/09/22 release Current Visit Medications: Current Medications Generic Name Dose Route Start Last Admin Trade Name Freq PRN Reason Stop Dose Admin Acidophilus/Pectin 1 cap 09/11/22 08:30 09/12/22 07:51 Lactobacillus Acidophilus Cap PO 1 cap DAILY KHANH Administration Albuterol Sulfate 2.5 mg 09/10/22 19:45 Albuterol 2.5 Mg/3 Ml Inh Soln Vial IH Q4H PRN PRN Budesonide/Formoterol Fumarate 0 puff 09/10/22 20:00 09/12/22 08:23 Budesonide/Formoterol 160/4.5 6 Gm 60 Puff Inh IH 2 puff BID KHANH Administration Bupropion HCl 150 mg 09/11/22 08:30 09/12/22 07:51 Bupropion-Xl 150 Mg Tabcr PO 150 mg QAM KHANH Administration Dimethicone/Zinc Oxide 0 gm 09/09/22 22:22 Liliana Protect Cream 142 Gm Tube TP PRN PRN Gabapentin 300 mg 09/10/22 22:00 09/11/22 21:15 Gabapentin 300 Mg Cap PO 300 mg HS KHANH Administration Gabapentin 100 mg 09/11/22 08:30 09/12/22 12:19 Gabapentin 100 Mg Cap PO 100 mg 0830,1200 KHANH Administration Guaifenesin/Dextromethorphan 10 ml 09/10/22 19:28 Guaifenesin/D-Methorphan Hb 5 Ml Cup PO Q4H PRN PRN Hydromorphone HCl 2 mg 09/10/22 18:15 09/12/22 10:55 Hydromorphone 2 Mg Tab PO 2 mg Q6H PRN PRN Administration Pain Hydromorphone HCl 1 mg 09/11/22 10:23 09/12/22 07:47 Hydromorphone 2 Mg/Ml Vial IVP 1 mg Q4H PRN PRN Administration Ringer's Solution 1,000 mls @ 75 mls/hr 09/09/22 22:30 09/12/22 01:02 IV 75 mls/hr INFUSION KHANH Administration Metronidazole 500 mg in 100 mls @ 100 mls/hr 09/10/22 06:00 09/12/22 14:42 Flagyl IVPB 100 mls/hr Q8H KHANH Administration Vancomycin/PEG/NADA/Lysine/Water 750 mg in 150 mls @ 150 mls/hr 09/11/22 20:00 09/12/22 05:55 Vancocin Injection IVPB Infused Q10H KHANH Infusion Protocol Iohexol 100 ml 09/12/22 14:15 09/12/22 14:13 Omnipaque 350 Mg/Ml 100 Ml Btl IJ 10/12/22 23:59 100 ml DIRECTED KHANH Administration Iohexol 50 ml 09/12/22 15:00 09/12/22 14:15 Omnipaque 350 Mg/Ml 50 Ml Btl PO 10/12/22 23:59 50 ml DIRECTED KHANH Administration Ketorolac Tromethamine 15 mg 09/10/22 02:50 09/12/22 12:19 Ketorolac 15 Mg/Ml Vial IVP 09/15/22 02:59 15 mg Q6H PRN Administration Levofloxacin 500 mg/ 750 mg 09/10/22 08:30 09/12/22 07:51 Levofloxacin 250 mg PO 750 mg QAM KHANH Administration Methylphenidate HCl 10 mg 09/10/22 20:00 09/12/22 07:51 Methylphenidate 10 Mg Tab PO 10 mg BID KHANH Administration Miscellaneous Medication 473 ml 09/12/22 14:30 09/12/22 14:20 Breeza Beverage 473 Ml Btl PO 10/12/22 23:59 473 ml DIRECTED KHANH Administration Omeprazole 20 mg 09/11/22 07:30 09/12/22 07:51 Omeprazole 20 Mg Capcr PO 20 mg DAILY@0730 KHANH Administration Polyethylene Glycol 17 gm 09/11/22 08:30 09/12/22 11:32 Polyethylene Glycol 3350 17 Gm Packet PO Not Given DAILY KHANH Pramipexole Dihydrochloride 0.125 mg 09/11/22 08:30 09/12/22 07:51 Pramipexole 0.25 Mg Tab PO 0.125 mg DAILY KHANH Administration Simethicone 80 mg 09/10/22 02:50 09/12/22 10:16 Simethicone 80 Mg Chew PO 80 mg Q6H PRN Administration Sodium Chloride 50 ml 09/12/22 14:15 09/12/22 14:14 Normal Saline - Diluent 50 Ml Vial IJ 50 ml .FOR DI USE KHANH Administration PFSH Active Problems Active Problems: Problem Status Onset Code Hypokalemia E87.6 UTI (urinary tract infection) N39.0 Perforated diverticulum K57.80 COPD exacerbation J44.1 Duodenitis K29.80 Gastritis K29.70 Cervicalgia M54.2 Tendonitis of long head of biceps brachii of right shoulder M75.21 Degenerative arthritis of cervical spine M47.812 Arthritis of left glenohumeral joint M19.012 HPV (human papilloma virus) infection B97.7 IBS (irritable bowel syndrome) K58.9 Skin lesion L98.9 Low back pain M54.5 Lumbar radiculopathy M54.16 Abdominal pain R10.9 Abdominal bloating R14.0 Blood in stool K92.1 Hx of allergic reaction Z88.9 Closed fracture of right distal fibula S82.831A Shoulder pain M25.519 Trigger finger of all digits of both hands M65.321, M65.311, M65.312, M65.322, M65.331 Arthritis of right glenohumeral joint M19.011 No-show for appointment Z53.29 Spondylosis, cervical M47.812 Carpal tunnel syndrome, bilateral G56.03 Shoulder pain, bilateral M25.511, M25.512 Effusion of left knee M25.462 Situational depression Myalgia M79.10 Generalized osteoarthritis of multiple sites M15.9 Patellar tendinitis M76.50 Sinusitis J32.9 Mild memory disturbance R41.3 Rash, skin R21 Visit for screening mammogram Z12.31 Preventative health care Z00.00 Colonoscopy planned Frequency of urination R35.0 Eye irritation H57.89 Dysuria R30.0 Ankle joint disorder M19.079 Hypoglycemia E16.2 Cough R05 Sinusitis, acute J01.90 Medical History Medical History ADHD Cervical spinal stenosis AGATHA III (cervical intraepithelial neoplasia III) Constipation, chronic COPD (chronic obstructive pulmonary disease) COVID Diaphoresis Dyspnea Edentulous Exposure to COVID-19 virus GERD (gastroesophageal reflux disease) Grief reaction Hemangioma of liver Hematemesis History of paresthesia HPV (human papilloma virus) anogenital infection Hyperlipidemia Liver lesion Minimally displaced zone I fracture of sacrum, sequela Nocturnal hypoxia Pneumonia Reactive inflammatory arthritis Restless leg syndrome Seasonal allergic reaction Sleep apnea Supraclavicular lymphadenopathy Tendonitis Tobacco use Surgical History Surgical History Arthroscopy, Shoulder History of colonoscopy (~07/05/18) History of esophagogastroduodenoscopy (EGD) (~09/2020) S/P colonoscopy S/P tonsillectomy Trigger Finger release several Tobacco Smoking/Tobacco Use Status: Former Tobacco Use Alcohol Alcohol Intake: never Substance Use Substance use: Never Substance use type: does not use Vital Signs and Lab Results Vital Signs Most Recent Vital Signs in EMR: Most Recent Vital Signs Temp Pulse Resp BP Pulse Ox 38 C H 102 H 16 135/74 95 09/12/22 11:08 09/12/22 15:00 09/12/22 11:08 09/12/22 11:08 09/12/22 11:08 Lab Results 09/12/22 06:50 09/12/22 06:50 Blood Type / Crossmatch: Patient ABO/Rh Pending 09/12/22 Antibody Screen Pending 09/12/22 Complete Blood Count: White Blood Count 20.05 10^3/uL (4.4-10.8) H 09/12/22 06:50 Red Blood Count 3.93 10^6/uL (3.93-5.22) 09/12/22 06:50 Hemoglobin 11.5 g/dL (11.2-15.7) 09/12/22 06:50 Hematocrit 35.1 % (36.0-46.0) L 09/12/22 06:50 Platelet Count 480 10^3/uL (130-400) H 09/12/22 06:50 Venous Blood Lactate 0.7 mmol/L (0.6-1.4) 09/09/22 22:07 Complete Metabolic Panel: Sodium 142 mmol/L (136-145) 09/12/22 06:50 Potassium 3.3 mmol/L (3.5-5.1) L 09/12/22 06:50 Chloride 105 mmol/L (98-107) 09/12/22 06:50 Carbon Dioxide 26.2 mmol/L (21.0-32.0) 09/12/22 06:50 BUN 6 mg/dL (7-18) L 09/12/22 06:50 Creatinine 1.0 mg/dL (0.55-1.02) 09/12/22 06:50 Est GFR (CKD-EPI 2020) 63.30 (mL/min/1.73m2) 09/12/22 06:50 Magnesium 1.9 mg/dL (1.8-2.4) 09/12/22 06:50 Calcium 8.2 mg/dL (8.5-10.1) L 09/12/22 06:50 Albumin 3.1 g/dL (3.4-5.0) L 09/09/22 20:55 Glucose 110 mg/dL (74-106) H 09/12/22 06:50 C-Reactive Protein 9.88 mg/dL (0.0-0.3) H 09/12/22 06:50 Liver Function Panel: Alanine Aminotransferase (ALT/SGPT) 56 U/L (14-59) 09/09/22 20: 55 Aspartate Amino Transf (AST/SGOT) 32 U/L (15-37) 09/09/22 20:55 Coagulation Panel: No Data to Display Cardiac Panel: No Data to Display Arterial Blood Gas: No Data to Display Venous Blood Gas: No Data to Display Pancreas Panel: Lipase 24 U/L (16-77) 09/09/22 20:55 Thyroid Panel: No Data to Display Infectious Disease: Coronavirus (COVID-19)(PCR) Negative (Negative) 09/09/22 22:36 Coronavirus 2019 Source Nasal/Nares 09/09/22 22:36 Blood Cultures: No Data to Display Toxicology Panel: No Data to Display Imaging and Studies Imaging and Studies Study information below may be from another EMR and interpreted by another provider. Please see original notes in EMR for more complete details. EKG Summary: DATE/TIME OF SERVICE: 05/15/22 1830 : 1960PERFORMING LOCATION: MD APPROVED REPORT Exam: Resting ECG Reason for Exam: dyspnea Patient Location: E HR:83 bpm ECG Measurements Heart Rate 83 AXIS UT 159 P 49 QRSd 91 QRS 61 QT 382 T59 QTc 448 Conclusion Sinus rhythm...normal P axis, V-rate 60- 99 Normal [place] Normal Electrocardiogram Pulmonary Function Summary: Date of service: 06/15/22 Time of Service: 13:00 Pulmonary Function Test Result Requesting Provider Soraida Sims Indications: COPD Interpretation Spirometry: There is moderate airflow limitation. There is a significant bronchodilator response. Lung Volumes: There is air trapping Diffusion Capacity: Normal diffusion Airway Pressure: Increased airways resistance Impression Moderate airflow obstruction with air trapping, a normal diffusion and a signifi cant bronchodilator response. In the correct clinical context this may likely represent COPD (chronic bronchitis) or asthma-COPD overlap syndrome. Clinical Correlation therefore is recommended. Anesthesia Assessment and Plan Anesthesia History Personal History: No History of Anesthesia Complications Family History: No Family History of Anesthesia Complications Exercise Tolerance Exercise Tolerance: Metabolic Equivalents>4 Pertinent Negatives Pertinent Negatives: No Symptoms of GERD Cardiac & Pulmonary Exam Cardiac Exam: Normal S1/S2 Heart Sounds Pulmonary Exam: Clear Bilateral Breath Sounds Implantable Cardiac Device Does patient have a Pacemaker or an ICD?: No Airway Exam Known Difficult Airway: Yes Mallampati Class: 2 Mouth Opening: Normal (> 3cm) Thyromental Distance: Greater than 3 cm Neck Range of Motion: Full ROM Neck Circumference: Normal Teeth Condition: Removable Dentures/Plates Upper ASA Classification ASA Score: ASA 3 Emergency Case?: Yes NPO Status NPO Status: NPO Clears >2 hours, Solids >8 hours Anesthesia Plan Resuscitation Status: Full Code Anesthesia Technique: General Anesthesia Airway Planned: Endotracheal Tube Pain Management: Epidural Monitors Used: Standard Monitors
[2022-09-12] MEDS: Lactated Ringers 1,000 ML 50 ML IV (16:59)
[2022-09-12] MEDS: Bupivacaine 0.25% Pres-Free 30 ML VIAL (17:19)
[2022-09-12] MEDS: FentaNYL/ROPIvacaine 2 mcg/ml and 0.1% 200 ML CADD Cassette EP (17:41)
--- NOTE | 2022-09-12 18:31 | BOWEL_PTH ---
PATIENT: Afsaneh Lowe LOC: U#:[id number] AGE/SX: 61/F ROOM: 207 RE09/09/[address]: Nell Santoro MD : 1960 BED: A DIS: 09/21/2022 SPEC #: [id number] RECD: 09/14/22 12:36 STATUS: NIRMAL REQ #: [id number] MOIZ: 09/12/22 18:[address]: Nell Santoro DEPT: Surgical Specimen RECD BY: Arleen Guillory ENTERED: 09/14/22 12:38 SP TYPE: Bowel OTHR DR: Zayra Garcia,Janie Sims,Soraida Deras Tissues: 1 - BOWEL RESECTION(OTHER) Procedures: GROSS AND MICRO LEVEL 5 Comments: [id number]
--- NOTE | 2022-09-12 19:30 | DI.RAD_ITS ---
Exam(s) XR PORTABLE CHEST AP POST LINE EXAM: XR PORTABLE CHEST AP POST LINE CLINICAL HISTORY: Right IJ Central line. TECHNIQUE: 2D digital imaging was performed. COMPARISON: CR,XR XR CHEST 2V PA LATERAL from 09/05/2022 FINDINGS: Single AP portable view. Distal tip of the right jugular central line is in the upper SVC. Heart size is upper normal. The mediastinum is not widened. Lungs are clear. No infiltrates nor obvious pleural effusions. Previously present pneumoperitoneum is not evident on this postoperative image. IMPRESSION: No acute pulmonary findings on this single AP portable view of the chest. Right jugular line in satisfactory position. DATA REPOSITORY: RADIATION DOSE DELIVERED:
--- NOTE | 2022-09-12 19:51 | W.ANESVAS ---
Central Venous Line Placement Date Performed: 09/12/22 Procedure Time: 19:00 Procedure Location: Operating Room Requesting Provider: Nell Santoro Standard Monitors Applied: ECG, Blood Pressure, SpO2, ETCO2 and See EMR for corresponding vital signs Pt. Position: Sitting Timeout Performed: Yes Sedation Given (Indicate Dose Given): No Sedation given Patient Mental Status: Performed under general anesthesia Sterility: Hand Hygiene, Surgical Cap, Surgical Mask, Sterile Gloves, Sterile Drape/Sheet, Sterile Gown and Chlorhexidine Laterality: Right Insertion Site: Internal Jugular (IJ) Central Line Type: Triple Lumen Catheter Insertion Procedure: 1% Lidocaine to skin and subcutaneous tissue with 25g needle, Vessel accessed with catheter over needle, catheter advanced, Guidewire placed with ease, Dermatotomy (skin coral) made with scalpel, Dilator placed without resistance, Introducer/Catheter placed without resistance, Guidewire removed and Claves placed, blood withdrawn, ports flushed and clamped Dressing: Tegaderm Applied (Central line dressing), BioPatch and Sutured in Place Catheter Depth at Skin (cm): 12 Placement Confirmation: Confirmation X-Ray Ordered Ultrasound: Sterile probe cover and gel used Ultrasound Image Saved?: Yes Number of Attempts (See previous attempts in note section): 1 Procedure Tolerated: No Complications Procedure Outcome: Successful Procedure Comment: Line placed successfully but did require in skin redirection of needle to aspirate blood. Image saved, X-Ray ordered. Line not used but has non pulsatile blood noted in each lumen.No ECG changes or SpO2 changes. Performed By: Abhishek De La Cruz
--- NOTE | 2022-09-12 19:53 | W.PM.OP ---
Date of service: 09/12/22 Time of Service: 19:53 Operative Note Operative Note DATE OF PROCEDURE: 09/12/22 PRE-OP DIAGNOSIS: ruptured diverticula with intrabdominal abscess POST-OP DIAGNOSIS: same PROCEDURE: Exploratory laparotomy Resection of sigmoid colon Colostomy creation SURGEON: Nell Santoro RESOURCE MANAGEMENT PLANNER: Margaret Cid ANESTHESIA TYPE: General LMA/ETT and Epidural Refer to Anesthesia Record ESTIMATED BLOOD LOSS: 100 PATHOLOGY: other (sigmoid colon) COMPLICATIONS: None Patient was transported to: ICU Patient's condition: stable Indications: Mrs Lowe was admitted with worsening pain and leukocytosis 1 week after undergoing Exploratory Laparoscopy for free air. Over the next 3 days her symptoms worsened. Repeat CT scan showed increase in free air again as well as a large abscess. We discussed surgery and the fact that her symptoms where worsening and she had failed conservative treatment. Ex-lap and colostomy was recommended. Risks, benefits and complications were reviewed with the patient and her daughter. Their questions were entertained and answered to their satisfaction and they wished to proceed. No guarantees were given or implied. The patient understands the risks and benefits and complications. Findings: a redundant sigmoid colon. There was a perforation in the mid sigmoid colon and another portion of the sigmoid colon was folded over it. There was purulent fluid in the pelvis Procedure Description: After informed consent was obtained, the patient was brought to the PACU. Anesthesia placed an epidural catheter for postop pain control. Once the epidural was in place ,she was brought to the Operating room and placed in a supine position on the operating room table. Monitors were then applied and she was placed under anesthesia and intubated. Once intubated a lyn catheter was placed in a standard, sterile fashion. A time out was done. The patients name, , allergies to mediucations, DVT prophilaxis, ABX prophiulaxis, procedure to be performed was reviewed. Fire risk was assessed. Her abdomen was then prepped and draped in a standard fashion. 0.25% Marcaine was injected along the midline from just above the umbilicus down to the pubic symphasis. A midline incision was made with a 10 blade. The subcutaneous tissue was dissected with cautery down to the fascia. The fascia was opened at the superior portion of the incision. I was then able to place my finger under the fascia and I opened the rest of the incision. There was purulent fluid was noted. Anaerobic and aerobic cultures were done of the fluid. The rest of the fluid was then suctioned out. The OMNI retractor was then set up and the patients abdominal wall was retracted. I was then able to visualize the sigmoid colon. The small intestine and cecum were then gently retracted as well up into the upper abdomen. The patient was placed in trendelenburg. Next using blunt dissection the sigmoid colon was released from its adhesion to the uterus. I noticed that the mid-sigmoid colon was folded over itself. Once the sigmoid colon was straightened. I was then able to see the perforation. There was a surroiunding area of necrotic tissue. The sigmoid colon was noted to be redundant. An area proximal to the perforation, were the colon was not edematous was identified. A small opening was made with a hemostat through the mesentary. Using a straight stapler the sigmoid colon was transected. The mesentery was then transected using the ligasure down to about 1 inch past the perforation. Using the stapler the distal sigmoid colon was transected. The portion of sigmoid colon was marked with a suture at the distal end and placed into formalin and sent to the lab. Next the abdomen was irrigated with 1 L of warm normal saline. The rectal stump was sutured to the pelvic rim to make it easier to find once the patient comes back for reversal of her colostomy. The mesentary was transected as was the fatty tissue. Once enough of the proximal sigmoid/distal descending colon was mobilized, to easily come through the skin, the abdomen was once again irrigated. A round opening was created in the skin in the LLQ. The subcutaneous tissue was removed down to the fascia. The fascia was opened. The peritoneum was opened. The colon was gently brought up through the opening up to the skin. The end of the bowel looked dusky so I trimmed it until the mucosa was noted to be nice and pink. The colon was tacked to the fascia. At this point a piece of intersead was placed between the rectum and the uterus. The omentum was brought down and the small bowel was covered. The omni was removed. Next the fascia was closed with a running suture done with #1 looped proline. Once the fascia was closed the subcutaneous tissue was irrigated. The colostomy was then created in a standard fashion. Once the ostomy was created the skin was cleaned and dried. An ostomy bag was placed. Wet to dry dressing was placed into the midline wound and secured with ABD and tape. At this point anesthesia placed a right IJ central line to assist with IV access. Once the central line was in place the patient was woken up, extubated and taken to the ICU in stable condition. Sponge, instrument and needle counts were correct prior to closure of the fascia and again at the end of the case. The patient tolerated the procedure and there were no immediate complications.
--- NOTE | 2022-09-12 19:56 | ANES.NEUR_ITS ---
Epidural/Spinal Catheter Date Performed: 09/12/22 Procedure Start: 16:20 Procedure Stop: 16:55 Requesting Provider: Nell Santoro Procedure Location: PACU Reason Performed: Postoperative Analgesia Standard Monitors Applied: ECG, Blood Pressure and SpO2 Patient Position: Sitting Sedation Given (Indicate Dose Given): Versed IV Dose:: 1mg and 1mg Patient Mental Status: Awake Sterility: Hand Hygiene, Surgical Cap, Surgical Mask, Sterile Gloves, Sterile Drape/Sheet and Chlorhexidine Procedure Location: L3-L4 Interspace Epidural Needle: Tuohy 18 Gauge Needle Length: 3.5 Inch Needle Approach: Midline Epidural Procedure: Skin Prepped, 1% Lidocaine to skin and subcutaneous tissue with 25G needle, Tuohy Needle placed, DARLENE to Saline Used, * Dural Puncture by Tuohy Needle Noted * Dural Puncture: Noted CSF from Tuohy and Epidural Catheter placed into INTRATHECAL space, Negative Heme, Positive CSF Flow and Tuohy Needle Removed Catheter Placed?: Catheter Placed Test Dose (Indicate Dose Given): Other Medication/Dose:: After 3ml test dose, pt. stated her legs felt very warm and numb. Loss of Resistance Depth (cm): 7 Catheter depth at skin (cm): 12 Dressing: Sorbaview Dressing Placed, Mastisol Used and Dressing reinforced with Tape Epidural Provider Bolus (Indicate Dose Given): None Given Additives (Indicate Dose Given ): None Infusion Medication: No Infusion Started Block Level: N/A Paresthesia: Left Paresthesia Duration: Transient (Despite DARLENE at 7cm, pt. did have left hip paresthesia with attempt at catheter placement. This resolved after final placement of catheter.) Ultrasound: Used to sukhdev site Number of Attempts (See previous attempts in note section): 1 Procedure Tolerated: Patient did not tolerate well (Pt. was uncomfortable at baseline and this continued throughout the epidural process, making it difficult to assess normal expected discomfort vs. worrisome discomfort throughout the process. Entry into epidural space was uncomplicated, but catheter threading was which is noted below.) Procedure Outcome: Successful Procedure Comment:: Pt. prepped and placed on monitors.Skin local given and epidural needle advanced with continuous discomfor throughout the process that seemed inconsistent with procedure, Needle was slowly advanced and breaks taken for patient. Epidural space entered without difficulty with good DARLENE, however catheter unable to thread more than a cm into space. Needle repositioned with no changes. Tuohey advanced 1 mm with similar catheter issue, then another 1mm with same issue and confirmed DARLENE but no CSF. Advanced 1mm more and noted CSF flow from needle. St ill unable to pass catheter. Withdrew needle slightly and catheter did advance as expected. I will educate staff development manager in ICU as well as pt once awake after surgery. I will reduce dose given very likely still intrathecal catheter, see test dose notes above. However no obvious CSF upon aspiration before test dose, but a 20ml syringe was used for this. Site dressed and orders adjusted for spinal catheter until pt. awakens from surgery and can be further assessed. Performed By: Abhishek De La Cruz
--- NOTE | 2022-09-12 20:22 | DI.VRAD_ITS ---
PROCEDURE INFORMATION: Exam: XR Chest Exam date and time: 09/12/2022 7:23 PM Age: 61 years old Clinical indication: Other: RT ij central line TECHNIQUE: Imaging protocol: Radiologic exam of the chest. Views: 1 view. COMPARISON: CR XR CHEST 2V PA LATERAL 09/05/2022 8:09 AM FINDINGS: Tubes, catheters and devices: Right IJ central venous catheter is in place with the tip in the superior vena cava. Lungs: Unremarkable. No consolidation. Pleural spaces: Unremarkable. No pleural effusion. No pneumothorax. Heart/Mediastinum: Unremarkable. No cardiomegaly. Bones/joints: Mild degenerative changes of the spine and shoulders noted. IMPRESSION: Right IJ central line in good position. No acute abnormality Dictated and Authenticated by: Jim Youssef MD. Ordering:MACIEJ Camejo MD
[2022-09-12] MEDS: Ondansetron 4 MG/2 ML VIAL IVP (20:40)
[2022-09-12] MEDS: HYDROmorphone 2 MG/ML SYR 1 MG IVP (20:41)
[2022-09-12] MEDS: Lactated Ringers 1,000 ML 125 ML IV (20:42)
--- NOTE | 2022-09-12 21:57 | ANES_ITS ---
Date of service: 09/12/22 Time of Service: 21:57 Anesthesia Note Report Anesthesia Note: Went back to assess patient and her pain level to ascertain whether she has an epidural or spinal catheter in place. At 2107 her infusion was 1ml/hr and no pt. doses. Her pain is severe or large as she is crying in bed. She has no numbness or tingling in arms/hands/fingers. Left leg she states is more numb than right. Her motor extension is 5/5 motor strength but her flexion is slightly reduced on her left (she states this is due to her arthritis and this is always the case. Using aspetic technique I aspirated and did not get CSF flow from the catheter with a 3ml syringe. Over the next 35 minutes I gave her multiple 1ml bolus' and s well as incrementally increased her infusion rate with pain noted to reduce to medium pain and then Low pain and eventually very low pain and noted she was falling asleep. her motor and sensory exam did not change, except that now he abdomen is less sensate. I am more confident that this is a traditional epidural, but will monitor thorughout the night just to be sure. RN's advised to check every hour pain, motor strength, and absence of hand/finger paresthesia. If she develops more pain over the night, they will pag e me to come in and this would further add to my suspicion that the catheter in in fact placed in epidural space. During placement, I did withdraw the needle when there was obvious CSF flow and it seemed reduced but not gone, so the plan was to be cautious as we proceed. 2107: 1ml pump bolus, 2112 1ml pump bolus, 2116 1ml pump bolus and maybe some relief per patient but still looks uncomfortable. 2120 1 ml from pump and increased rate to 2ml/hr. 2125 and 2130 with 2ml bolus from pump each. At 2139 I increased the infusion to 5ml/hr. This is all reassuring that placement is in the epidural space. Pt. is now comfortable and falling asleep as she states she is very tired as it has been a long couple of days with poor sleep.
[2022-09-13] VITALS (97 sets, daily range): BP systolic 84–145; BP diastolic 46–77; PULSE 64–102; RESP 10–22; TEMP 36.5–37.1; O2SAT 91–97
[2022-09-13] MEDS: VANCOMYCIN/WATER (PEG) 750 MG/150 ML BAG 150 MG IVPB (05:04)
[2022-09-13] MEDS: Ketorolac 15 MG/ML VIAL IVP (05:10)
[2022-09-13] MEDS: Lactated Ringers 1,000 ML 125 ML IV ×3 (06:12→20:28)
[2022-09-13] MEDS: metroNIDAZOLE 500 MG/100 ML BAG 100 MG IVPB ×3 (06:12→22:19)
[2022-09-13 06:34] LABS: Abs Immature Grans 0.22 10^3/uL (0.0-0.06); Absolute Basophil Count 0.06 10^3/uL (0.0-0.2); Absolute Monocyte Count 1.58 10^3/uL (0.1-0.8); Basophils % 0.2; HCT 35.4 % (36.0-46.0); HGB 11.6 g/dL (11.2-15.7); Immature Grans % 0.8; MCH 29.2 pg (27.0-33.0); MCHC 32.8 % (32.0-36.0); MCV 89 fL (80-95); MPV 10.6 fL (8.0-11.0); Monocytes % 5.5; Neutrophils % 89.5; Platelet Count 504 10^3/uL (130-400); RBC 3.97 10^6/uL (3.93-5.22); RDW 12.7 % (11.7-14.6); RDW-SD 42.1 fL
[2022-09-13 06:52] LABS: Absolute Lymphocyte Count 1.15 10^3/uL (1.2-3.4); Absolute Neutrophil Count 25.78 10^3/uL (1.2-6.7); WBC 28.81 10^3/uL (4.4-10.8)
[2022-09-13 07:01] LABS: Magnesium 1.8 mg/dL (1.8-2.4)
[2022-09-13 07:07] LABS: ALT 20 U/L (14-59); AST 11 U/L (15-37); Albumin 2.2 g/dL (3.4-5.0); Alkaline Phosphatase 59 U/L (46-116); Anion Gap 13.1 mmol/L (3-11); BUN 7 mg/dL (7-18); Bilirubin, Total 0.4 mg/dL (0.2-1.0); CO2 26.9 mmol/L (21.0-32.0); CREATININE 0.9 mg/dL (0.55-1.02); Calcium 7.9 mg/dL (8.5-10.1); Chloride 106 mmol/L (98-107); Estimated GFR 71.83 (mL/min/1.73m2); Glucose 142 mg/dL (74-106); Potassium 3.7 mmol/L (3.5-5.1); Sodium 146 mmol/L (136-145); Total Protein 6.1 g/dL (6.4-8.2)
[2022-09-13 07:26] LABS: Diff Comment Agrees w/ Instrument; RBC Morphology Normal
[2022-09-13 08:23] LABS: C-Reactive Protein 15.01 mg/dL (0.0-0.3)
[2022-09-13] MEDS: Budesonide/Formoterol 160/4.5 6 GM 60 PUFF INH IH ×2 (08:31→22:17)
[2022-09-13] MEDS: levoFLOXacin 750 MG/150 ML BAG 100 MG IVPB (08:50)
[2022-09-13] MEDS: Pantoprazole 40 MG VIAL IVP (08:50)
[2022-09-13] MEDS: Normal Saline Flush 10 ML SYR ×2 (08:51→19:09)
--- NOTE | 2022-09-13 09:06 | PDOC.ANES ---
Date of service: 09/13/22 Time of Service: 08:50 Anesthesia Note Report Anesthesia Note: Arrived around 0815 to assess analgesia catheter and pain management. Pt. is crying in bed stating her pain is severe. RN states she just gave Dilaudid with little effect. I advised again that if pain is more than tolerable/low per patient, to call me instead of giving additional narcotic analgesia. On exam, motor strength is 5/5 with extension, 4/5 on flexion left foot, right is 5/5. No paresthesia in arm/hand/fingers. I administered 5ml bolus from catheter pump with some relief and no change in motor exam. After administration of another 5ml 5-10 minutes later, pt. still denies arm/hand/finger paresthesia, but now has 1/5 motor on right and 0/5 on left. States legs are numb with left being more numb than right. Her pain is now low and she is very comfortable. No respiratory distress. Hemodynamically stable, although did note reduction in BP. We discussed removal and replacement of epidural catheter and pt. declines this. We also discussed possibility of developing PDPH as time goes on. Pt. will make Rn or myself aware of this occurs. Given that she was on 5ml/hr over night and this wore off as well as the 5ml bolus being very well tolerated this morning, I was feeling much more comfortable that this was in fact an epidural placement, but given the spinal setup after a total of 10ml 0.1% ropivacaine (10mg), this leans me back towards spinal catheter. I will let her infusion run at 8ml/hr and advised q 1 hour vitals signs and assessment of neuro upper and lower extremities while awake. I will check on her in a few hours and hope to find an infusion dose that controls discomfort while keeping her safe. Also discussed BP management and goals with RN to keep MAP >60 and treat with ephedrine if needed or symptomatic.
--- NOTE | 2022-09-13 09:24 | ANES.NEURP_ITS ---
Epidural/Spinal Daily Note Date Performed: 09/13/22 Assessment Time: 08:30 Patient Location: Med/Surg Catheter Type in Place: Spinal Catheter (Likely spinal catheter but still slightly unclear.) Dressing Assessment: Dressing intact with good adherence Catheter Assessment: Catheter Labeled, Intact and Functioning and Planned Removal, team aware, Anticoagulant Therapy Addressed Previous Catheter Depth Noted (cm): 12 Current Catheter Depth (cm): 12 Current Medication Infusion: Ropivacaine 0.1% with Fentanyl 2mcg/ml Current Maintenance Infusion Rate (ml/hour): 5 Current PCEA Bolus Dose (ml): 0 Current Pain Score (0-10): 10 Medication Infusion Stopped, Catheter Removal Planned: No New Bolus Given or Change in Infusion Made: Yes Standard Monitors Applied: ECG, Blood Pressure, SpO2 and See EMR for corresponding vital signs Epidural Provider Bolus (Indicate Dose Given): Total Ropivacaine 0.1% with Fentanyl 2mcg/ml Given from pump. (ml) Dose:: 5ml bolus x2 seperated by 10 minutes. Additives (Indicate Dose Given ): None Infusion Medication: New Infusion Medication Medication Infusion: Ropivacaine 0.1% with Fentanyl 2mcg/ml New Maintenance Infusion Rate (ml/hour): 8 New PCEA Bolus Dose (ml): 0 Pain Score after Medication Change (0-10): 1 Sensory / Motor Block Comments after Change: Upper extremities normal exam. Lowers after 5ml bolus left 4/5 motor, 5/5 right motor and numbness is both with greater on left. After 2nd 5ml bolus, motor reduced to 1/5 on right and 0/5 on left highly suspicious of spinal catheter. Daily Management Comments: Arrived around 0815 to assess analgesia catheter and pain management. Pt. is crying in bed stating her pain is severe. RN states she just gave Dilaudid with little effect. I advised again that if pain is more than tolerable/low per p atient, to call me instead of giving additional narcotic analgesia. On exam, motor strength is 5/5 with extension, 4/5 on flexion left foot, right is 5/5. No paresthesia in arm/hand/fingers. I administered 5ml bolus from catheter pump with some relief and no change in motor exam. After administration of another 5ml 5-10 minutes later, pt. still denies arm/hand/finger paresthesia, but now has 1/5 motor on right and 0/5 on left. States legs are numb with left being more numb than right. Her pain is now low and she is very comfortable. No respiratory distress. Hemodynamically stable, although did note reduction in BP. We discussed removal and replacement of epidural catheter and pt. declines this. We also discussed possibility of developing PDPH as time goes on. Pt. will make Rn or myself aware of this occurs. Given that she was on 5ml/hr over night and this wore off as well as the 5ml bolus being very well tolerated this morning, I was feeling much more comfortable that this was in fact an epidural placement, but given the spinal setup after a total of 10ml 0.1% ropivacaine (10mg), this leans me back towards spinal catheter. I will let her infusion run at 8ml/hr and advised q 1 hour vitals signs and assessment of neuro upper and lower extremities while awake. I will check on her in a few hours and hope to find an infusion dose that controls discomfort while keeping her safe.? Also discussed BP management and goals with RN to keep MAP >60 and treat with ephedrine if needed or symptomatic. Discussed plan with Sydni MCADAMS who has no questions. Ephedrine will be readily available to patient if needed. Completed By: Abhishek De La Cruz
--- NOTE | 2022-09-13 09:36 | W.ANESPOSTOP ---
Postoperative Evaluation Date, Time and Location Date Performed: 09/13/22 Time Performed: 09:36 Patient Location: Intensive Care Unit Vital Signs Most Recent Imported Vital Signs: Most Recent Vital Signs Temp Pulse Resp BP Pulse Ox 36.5 C 102 H 13 95/72 L 95 09/13/22 07:48 09/13/22 09:26 09/13/22 09:26 09/13/22 09:26 09/13/22 09:26 Pain Score Most Recent Pain Score: Most Recent Pain Score Pain Level [Abdomen] 3 09/13/22 05:58 Pain Level 5 09/13/22 05:10 Assessment Mental Status: Awake (Alert & Oriented to Patient Baseline) Airway and Respiratory Function: Patent airway with normal (patient baseline) respiratory exam Cardiovascular Function: Hemodynamically Stable Hydration Status: Adequately Hydrated Nausea & Vomiting: No Nausea or Vomiting Pain: Pain is tolerable per patient Peripheral Nerve Block: Patient did not receive a nerve block Postoperative Comments:: Will continue to monitor neuraxial analgesia catheter.
--- NOTE | 2022-09-13 12:16 | W.PM.PROGNOT ---
Date of Service Date of service: 09/13/22 Time of Service: 12:17 Assessment and Plan Assessment and plan (1) Perforated diverticulum: Status: Acute Assessment and plan: POD #1 s/p ex-lap and colostomy Afsaneh is doing OK today. Her pain is well controlled with the spinal DVT prophilaxis- start Lovenox. Continue SCD's RESP- Continue pulmonary toilet with ISP Diet- Clear liquids and hard candy Activity- unable to get out of bed right now. Needs to be turned in bed so she doesn't get a bed sore. Leukocytosis- Continue Abx. Await culture results Hypotension- secondary to spinal. Monitor Nutrition- Consider TPN if unable to advance diet tomorrow (2) COPD exacerbation: Status: Acute (3) Hypokalemia: Status: Acute Subjective Subjective Interval history since last seen: Patient looks much better. Her pain is controlled with the spinal. The patient is unable to move her lower extremities at this time. She has been afebrile. She has good Urine output. Exam Const General: cooperative, healthy appearing, comfortable and no acute distress Orientation: alert and oriented x3 HENMT Head: normocephalic and atraumatic Resp Effort & Inspection: normal respiratory effort Auscultation: clear to auscultation bilaterally Cardio Rate: regular rate Rhythm: regular rhythm GI Palpation: soft and tender (appropriate around ostomy and midline incision) Auscultation: normal bowel sounds Objective Last Vital Signs Temp 97.7 F 09/13/22 07:48 Pulse 64 09/13/22 11:00 Resp 14 09/13/22 11:00 BP 96/52 L 09/13/22 11:00 Pulse Ox 95 09/13/22 11:00 Laboratory Results - last 24 hr 09/12/22 09/13/22 09/13/22 15:30 05:30 05:30 WBC RBC Hgb Hct MCV MCH MCHC RDW Plt Count MPV Immature Gran % Neutrophils % Lymphocytes % Monocytes % Eosinophils % Basophils % Nucleated RBC % Absolute Neutrophils Absolute Lymphocytes Absolute Monocytes Absolute Eosinophils Absolute Basophils RBC Morphology Sodium 146 H Potassium 3.7 Chloride 106 Carbon Dioxide 26.9 Anion Gap 13.1 H BUN 7 Creatinine 0.9 Est GFR (CKD-EPI 2020) 71.83 Glucose 142 H Calcium 7.9 L Magnesium 1.8 Total Bilirubin 0.4 AST 11 L ALT 20 Alkaline Phosphatase 59 C-Reactive Protein 15.01 H Total Protein 6.1 L Albumin 2.2 L Vancomycin Trough Patient ABO/Rh A Positive Antibody Screen NEGATIVE 09/13/22 09/13/22 05:30 11:00 WBC 28.81 H* RBC 3.97 Hgb 11.6 Hct 35.4 L MCV 89 MCH 29.2 MCHC 32.8 RDW 12.7 Plt Count 504 H MPV 10.6 Immature Gran % 0.8 Neutrophils % 89.5 Lymphocytes % 4.0 Monocytes % 5.5 Eosinophils % 0.0 Basophils % 0.2 Nucleated RBC % 0.0 Absolute Neutrophils 25.78 H Absolute Lymphocytes 1.15 L Absolute Monocytes 1.58 H Absolute Eosinophils 0.00 Absolute Basophils 0.06 RBC Morphology Normal Sodium Potassium Chloride Carbon Dioxide Anion Gap BUN Creatinine Est GFR (CKD-EPI 2020) Glucose Calcium Magnesium Total Bilirubin AST ALT Alkaline Phosphatase C-Reactive Protein Total Protein Albumin Vancomycin Trough Cancelled Patient ABO/Rh Antibody Screen Time Spent with Patient Time Spent with Patient: 25-34 minutes Time was spent: preparing to see the patient(eg.review tests), obtaining and/or reviewing separately otained hiistory, ordering medications,tests, procedures, indepentently interpreting results and counseling the patient
[2022-09-13] MEDS: Enoxaparin 40 MG/0.4 ML SYR SC (12:40)
--- NOTE | 2022-09-13 13:32 | PHA.REVIEW2 ---
Pharmacy Admission Review - Admission Clinical Review (Last Reviewed 09/10/22 @ 07:20 by Asif Abel MD) Hypokalemia (Acute) UTI (urinary tract infection) (Acute) Perforated diverticulum (Acute) COPD exacerbation (Acute) acetaminophen [From Mapap (acetaminophen)] Allergy (Severe, Verified 09/08/22 12:23) Hives cephalexin [Cephalexin] Allergy (Intermediate, Unverified 09/01/22 13:24) Skin Rash Penicillins Allergy (Intermediate, Unverified 09/01/22 13:24) rash with all cillins ampicillin Allergy (Mild, Unverified 09/01/22 13:24) Skin Rash atorvastatin Allergy (Mild, Unverified 09/09/22 21:25) cefprozil [From Cefzil] Allergy (Mild, Unverified 09/01/22 13:24) Skin Rash Cephalosporins Allergy (Mild, Unverified 09/01/22 13:24) Hives clindamycin Allergy (Mild, Unverified 09/01/22 13:24) Skin Rash doxycycline Allergy (Mild, Unverified 09/01/22 13:24) Skin Rash varenicline [From Chantix] Allergy (Mild, Unverified 09/01/22 13:24) amoxicillin Allergy (Unknown, Unverified 09/01/22 13:24) Hives bupropion Allergy (Unverified 09/09/22 21:28) cefuroxime [From Ceftin] Allergy (Unverified 09/09/22 21:28) clarithromycin [From Biaxin] Allergy (Unverified 09/01/22 13:24) rash/hives duloxetine [From Cymbalta] Adverse Reaction (Intermediate, Unverified 09/01/22 13:24) made me feel very weird linaclotide [From Linzess] Adverse Reaction (Mild, Unverified 09/01/22 13:24) Diarrhea nicotine [From Nicorette] Adverse Reaction (Mild, Unverified 09/01/22 13:24) Nauseaous adhesive tape Adverse Reaction (Unknown, Unverified 09/01/22 13:24) Skin Rash adhesive Adverse Reaction (Unverified 09/01/22 13:24) Topical Irritation banana Adverse Reaction (Unverified 09/01/22 13:24) abd bloating codeine Adverse Reaction (Unverified 09/01/22 13:24) sick hydrocodone [From Vicodin] Adverse Reaction (Verified 09/01/22 13:24) cold sweats, vomiting black hair dye Allergy (Intermediate, Uncoded 09/01/22 13:24) Hives eggs Allergy (Uncoded 09/01/22 13:24) bloating Resuscitation Status Full Code Height 5 ft 1 in Weight 80.2 kg - Comments Comments/Follow Ups: Ruptured Diverticula w/intrabdominal abscess. Surgery 09/12/22. Afebrile. mentions possible TPN if advancing diet is not tolerated post-op. IV to po meds when able, Vanco trough being drawn today @ 1400 09/13/22. Home med reconciliation needs to be completed. - Renal Dosing Renal Dosing: BUN 7 mg/dL (7-18) 09/13/22 05:30 Creatinine 0.9 mg/dL (0.55-1.02) 09/13/22 05:30 Medications needing adjustments: Reviewed (CrCl~55ml/min) - Anticoagulation Anticoagulation: Hgb 11.6 g/dL (11.2-15.7) 09/13/22 05:30 Hct 35.4 % (36.0-46.0) L 09/13/22 05:30 Plt Count 504 10^3/uL (130-400) H 09/13/22 05:30 Creatinine 0.9 mg/dL (0.55-1.02) 09/13/22 05:30 DVT Prophylaxis: Reviewed Medications: Enoxaparin - Opiate Usage Evaluate Pain Scale/Pains Meds: Reviewed (Ropiv/Fentanyl Epidural currently @ 8ml/hr post-op colectomy 09/12/22) Scheduled Bowel Reg ordered if on Opiates?: No (NPO post-op) - Relevant Labs Sodium 146 mmol/L (136-145) H 09/13/22 05:30 Potassium 3.7 mmol/L (3.5-5.1) 09/13/22 05:30 Chloride 106 mmol/L (98-107) 09/13/22 05:30 Magnesium 1.8 mg/dL (1.8-2.4) 09/13/22 05:30 C-Reactive Protein 15.01 mg/dL (0.0-0.3) H 09/13/22 05:30 Electrolytes, C-Reactive P, ESR: Reviewed (Procal 0.1, C-reactive 15.01, WBC 28.81, Plt 504) - DM Control DM Control: Glucose 142 mg/dL (74-106) H 09/13/22 05:30 DM Control: N/A - Cardiac Review BP, HR, EF%: Reviewed (BP's soft ie: 98/56 post-op) - Qtc Review QTc: Reviewed (QTC 446) - IV to PO Switch IV Medications: Reviewed (currently NPO...will advance diet as tolerated; colostomy) - Home Meds Home Med List reviewed: Reviewed (Patient is NPO, home med list has not been reconcilled at this point.) Relevent Home Meds Not ordered & why?: Surgery, NPO Antibiotic Activity - Pharmacy Antibiotic Review Pharmacy Antibiotic Activity: C/S review (Blood cultures 09/09/22 no growth x 72 hours, Urine <10K colonies, will transition to oral when tolerated) - Antibiotic Information Antibiotic Review Info: Vancomycin per pharmacy protocol, IV Levaquin 750mg IV Q24h
[2022-09-13 14:20] LABS: Vancomycin, Trough 11.6 ug/mL (10.0-20.0)
--- NOTE | 2022-09-13 17:00 | W.PM.PROGNOT ---
Date of Service Date of service: 09/13/22 Time of Service: 17:00 Assessment and Plan Assessment and plan (1) Perforated diverticulum: Status: Acute Assessment and plan: POD #1 s/p ex-lap and colostomy Afsaneh is doing OK today. Her pain is well controlled with the new epidural DVT prophilaxis- start Lovenox. Continue SCD's RESP- Continue pulmonary toilet with ISP Diet- Clear liquids and hard candy Activity- unable to get out of bed right now. Needs to be turned in bed so she doesn't get a bed sore. Leukocytosis- Continue Abx. Await culture results Hypotension- secondary to spinal. Monitor Nutrition- TPN ordered (2) COPD exacerbation: Status: Acute (3) Hypokalemia: Status: Acute Assessment and plan: resolved Recheck tomorrow Subjective Subjective Interval history since last seen: Patients pain is better controlled after anethesia ended up placing a new epidural catheter. NO air or stool from the ostomy yet Exam GI Palpation: soft and tender (appropriately tender to palpation) Objective Last Vital Signs Temp 97.7 F 09/13/22 07:48 Pulse 71 09/13/22 15:31 Resp 19 09/13/22 15:31 BP 112/59 L 09/13/22 15:31 Pulse Ox 96 09/13/22 15:31 Laboratory Results - last 24 hr 09/13/22 09/13/22 09/13/22 05:30 05:30 05:30 WBC 28.81 H* RBC 3.97 Hgb 11.6 Hct 35.4 L MCV 89 MCH 29.2 MCHC 32.8 RDW 12.7 Plt Count 504 H MPV 10.6 Immature Gran % 0.8 Neutrophils % 89.5 Lymphocytes % 4.0 Monocytes % 5.5 Eosinophils % 0.0 Basophils % 0.2 Nucleated RBC % 0.0 Absolute Neutrophils 25.78 H Absolute Lymphocytes 1.15 L Absolute Monocytes 1.58 H Absolute Eosinophils 0.00 Absolute Basophils 0.06 RBC Morphology Normal Sodium 146 H Potassium 3.7 Chloride 106 Carbon Dioxide 26.9 Anion Gap 13.1 H BUN 7 Creatinine 0.9 Est GFR (CKD-EPI 2020) 71.83 Glucose 142 H Calcium 7.9 L Magnesium 1.8 Total Bilirubin 0.4 AST 11 L ALT 20 Alkaline Phosphatase 59 C-Reactive Protein 15.01 H Total Protein 6.1 L Albumin 2.2 L Vancomycin Trough 09/13/22 09/13/22 11:00 14:00 WBC RBC Hgb Hct MCV MCH MCHC RDW Plt Count MPV Immature Gran % Neutrophils % Lymphocytes % Monocytes % Eosinophils % Basophils % Nucleated RBC % Absolute Neutrophils Absolute Lymphocytes Absolute Monocytes Absolute Eosinophils Absolute Basophils RBC Morphology Sodium Potassium Chloride Carbon Dioxide Anion Gap BUN Creatinine Est GFR (CKD-EPI 2020) Glucose Calcium Magnesium Total Bilirubin AST ALT Alkaline Phosphatase C-Reactive Protein Total Protein Albumin Vancomycin Trough Cancelled 11.6 Time Spent with Patient Time Spent with Patient: <25 minutes Time was spent: ordering medications,tests, procedures and counseling the patient
--- NOTE | 2022-09-13 17:08 | W.ANESNEU ---
Epidural/Spinal Cath. Removal Date Performed: 09/13/22 Procedure Time: 16:30 Catheter Removal Type: Spinal Catheter Procedure Location: Intensive Care Unit Patient Position: Sitting Catheter Removal Procedure: Dressing Removed, Catheter Removed without Resistance and Catheter Tip Intact Paresthesia: None Procedure Tolerated: No Complications and Patient tolerated well Procedure Outcome: Successful Procedure Comment:: Plan to place another catheter for better pain management. Performed By: Abhishek De La Cruz
[2022-09-13] MEDS: FentaNYL/ROPIvacaine 2 mcg/ml and 0.1% 200 ML CADD Cassette EP (17:10)
--- NOTE | 2022-09-13 17:11 | W.ANESNEU ---
Epidural/Spinal Catheter Date Performed: 09/13/22 Procedure Start: 16:30 Procedure Stop: 17:11 Requesting Provider: Abhishek De La Cruz Procedure Location: Intensive Care Unit Reason Performed: Postoperative Analgesia Standard Monitors Applied: ECG, Blood Pressure, SpO2 and See EMR for corresponding vital signs Patient Position: Sitting Sedation Given (Indicate Dose Given): No Sedation given Patient Mental Status: Awake Sterility: Hand Hygiene, Surgical Cap, Surgical Mask, Sterile Gloves, Sterile Drape/Sheet and Chlorhexidine Procedure Location: L2-L3 Interspace Epidural Needle: Tuohy 18 Gauge Needle Length: 3.5 Inch Needle Approach: Midline Epidural Procedure: Skin Prepped, Sterile Drape Placed, 1% Lidocaine to skin and subcutaneous tissue with 25G needle, Tuohy Needle placed, DARLENE to Saline Used, Epidural Catheter Placed, Negative Heme, Negative CSF Flow and Tuohy Needle Removed Catheter Placed?: Catheter Placed Test Dose (Indicate Dose Given): 3ml 1.5% Lidocaine with 1:200K Epinephrine Given and Negative Test Dose Loss of Resistance Depth (cm): 6 Catheter depth at skin (cm): 12 Dressing: [place] Dressing Placed, Chlorhexidine Dressing, Mastisol Used and Dressing reinforced with Tape Epidural Provider Bolus (Indicate Dose Given): Total bolus dose given in 3-5 ml divided doses and Total Ropivacaine 0.1% with Fentanyl 2mcg/ml Given from pump. (ml) Dose:: 5ml and 5ml Additives (Indicate Dose Given ): None Infusion Medication: Medication Infusion Began Medication Infusion: Ropivacaine 0.1% with Fentanyl 2mcg/ml Maintenance Infusion Rate (ml/hour): 10 PCEA Bolus Dose (ml): 5 Post Procedure Pain score (0-10): 0 Block Level: N/A Paresthesia: None Ultrasound: Used to sukhdev site Number of Attempts (See previous attempts in note section): 1 Procedure Tolerated: No Complications and Patient tolerated well Procedure Outcome: Successful Procedure Comment:: Patient has been comfortable with previous catheter at times and then very uncomfortable. Discussed removal and placement of new epidural catheter in order to increase comfort that is sustained and give her a PCEA option. She was able to get into position well and resting on table. Discussed with surgeon to make sure abdominal wound would tolerate that. Epidural was very easy and straight forward with no repositioning needed. After DARLENE, catheter threaded with ease. Test dose negative. No heme noted. Bolus medication given with good result and reduction of pain to 0/10. 5/5 foot motor strength intact. No arm/hand/finger numbness/tingling. Pt. educated on PCEA use and questions answered. Nursing will continue to do their assessments every hour for the next 4 hours and then as standard policy dictates. Performed By: Abhishek De La Cruz
[2022-09-13] MEDS: Lactated Ringers 250 ML 500 ML IV (18:29)
[2022-09-13] MEDS: VANCOMYCIN/WATER (PEG) 1 GM/200 ML BAG IVPB (18:40)
[2022-09-14] VITALS (58 sets, daily range): BP systolic 85–139; BP diastolic 40–73; PULSE 60–86; RESP 11–95; TEMP 36–36.9; O2SAT 87–97
[2022-09-14] MEDS: VANCOMYCIN/WATER (PEG) 1 GM/200 ML BAG IVPB ×2 (05:36→17:39)
[2022-09-14] MEDS: Lactated Ringers 1,000 ML 125 ML IV (06:01)
[2022-09-14] MEDS: Normal Saline Flush 10 ML SYR IVP ×5 (06:08→11:54)
[2022-09-14 06:16] LABS: Absolute Basophil Count 0.05 10^3/uL (0.0-0.2); Absolute Lymphocyte Count 2.66 10^3/uL (1.2-3.4); Basophils % 0.3; Eosinophils % 0.8; HCT 29.5 % (36.0-46.0); HGB 9.6 g/dL (11.2-15.7); Immature Grans % 0.6; Lymphocytes % 17.2; MCH 29.7 pg (27.0-33.0); MCHC 32.5 % (32.0-36.0); MCV 91 fL (80-95); Monocytes % 9.4; Neutrophils % 71.7; Platelet Count 459 10^3/uL (130-400); RBC 3.23 10^6/uL (3.93-5.22); RDW 12.9 % (11.7-14.6); RDW-SD 42.9 fL; WBC 15.46 10^3/uL (4.4-10.8)
[2022-09-14 06:18] LABS: Absolute Eosinophil Count 0.12 10^3/uL (0.0-0.7); Absolute Monocyte Count 1.45 10^3/uL (0.1-0.8); Absolute Neutrophil Count 11.08 10^3/uL (1.2-6.7)
[2022-09-14] MEDS: metroNIDAZOLE 500 MG/100 ML BAG 100 MG IVPB ×3 (06:28→21:16)
[2022-09-14 06:30] LABS: INR 1.2 (0.9-1.1); Prothrombin Time 12.5 sec (9.3-11.0)
[2022-09-14 07:43] LABS: C-Reactive Protein 8.63 mg/dL (0.0-0.3)
[2022-09-14 07:44] LABS: ALT 16 U/L (14-59); AST 13 U/L (15-37); Albumin 1.9 g/dL (3.4-5.0); Alkaline Phosphatase 43 U/L (46-116); Anion Gap 5.7 mmol/L (3-11); BUN 8 mg/dL (7-18); Bilirubin, Total 0.2 mg/dL (0.2-1.0); CO2 29.3 mmol/L (21.0-32.0); CREATININE 0.9 mg/dL (0.55-1.02); Calcium 7.8 mg/dL (8.5-10.1); Chloride 109 mmol/L (98-107); Estimated GFR 71.83 (mL/min/1.73m2); Glucose 102 mg/dL (74-106); Magnesium 1.9 mg/dL (1.8-2.4); Potassium 3.4 mmol/L (3.5-5.1); Sodium 144 mmol/L (136-145); Total Protein 5.2 g/dL (6.4-8.2)
[2022-09-14 07:47] LABS: Procalcitonin 0.1 ng/mL
[2022-09-14] MEDS: Budesonide/Formoterol 160/4.5 6 GM 60 PUFF INH IH ×2 (08:12→20:47)
[2022-09-14] MEDS: FentaNYL/ROPIvacaine 2 mcg/ml and 0.1% 200 ML CADD Cassette EP ×2 (08:32→17:00)
[2022-09-14] MEDS: Enoxaparin 40 MG/0.4 ML SYR SC (09:24)
[2022-09-14] MEDS: Pantoprazole 40 MG VIAL IVP (09:26)
--- NOTE | 2022-09-14 10:09 | CMPROGNOTE_ITS ---
- If Service Date Differs Date of service: 09/14/22 Time of Service: 10:09 Care Management Progress Note S/O: Afsaneh was lying in bed when CM met with her. She stated that she had a difficult weekend, as she had to return to the OR for surgery. Per report, she has a new ostomy as a result of that surgery. She stated that her pain is well controlled, currently she has an epidural for pain management. She stated that she is only having ice chips at this time, and doesn't have much of an appetite, but she misses having coffee. Per report, she remains on TPN for nutrition, and MD would like to see more stool in the ostomy bag prior to advancing her diet. CM will continue to follow. A: Afsaneh is a 61 year old female admitted to [facility] on 09/09/22 for perforated diverticulitis. P: Anticipate Afsaneh will be discharged home with no new services when medically cleared. She will follow up with her community providers and plan of care and transport with her daughter, CM will follow and assess for discharge concerns.
--- NOTE | 2022-09-14 10:09 | W.ANESEPD ---
Epidural/Spinal Daily Note Date Performed: 09/14/22 Assessment Time: 10:26 Patient Location: Intensive Care Unit Catheter Type in Place: Epidural Catheter Dressing Assessment: Dressing intact with good adherence Catheter Assessment: Catheter Labeled and Intact and Functioning Previous Catheter Depth Noted (cm): 12 Current Catheter Depth (cm): 12 Current Medication Infusion: Ropivacaine 0.1% with Fentanyl 2mcg/ml Current Maintenance Infusion Rate (ml/hour): 10 Current PCEA Bolus Dose (ml): 5 Current Pain Score (0-10): 2 Medication Infusion Stopped, Catheter Removal Planned: No Sensory / Motor Block Comments: Reports bilateral calf numbness. Full movement bilaterally. Indicated pain upper incision. Patient fairly consistently pressing PCEA button. Educated to frequency of ability to receive bolus, discussed adjunct pain medication usage such as toradol. Discussed appropriateness of continuation of IS usage and frequency. New Bolus Given or Change in Infusion Made: No Completed By: Darnell Cardoza
[2022-09-14] MEDS: levoFLOXacin 750 MG/150 ML BAG 100 MG IVPB (10:29)
[2022-09-14] MEDS: Potassium Chloride 20 MEQ TABCR PO (11:48)
[2022-09-14] MEDS: Ketorolac 15 MG/ML VIAL IVP ×2 (11:51→20:46)
--- NOTE | 2022-09-14 11:53 | W.NUTCONSULT ---
Date of service: 09/14/22 Time of Service: 11:53 Nutritional Consult ASSESSMENT: Afsaneh was admitted over weekend with ruptured diverticulum. TPN initiated 09/14/22- 4.25/D10 2000 ml @83 cc/hour, 250 ml 20% lipids providing total of 1520 kcal, 84 g protein, 55 g fat. Currently NPO. Estimated needs: (BEE x 1.5)= 1578 kcal, 84 g protein (1.5 gpro/ABW), 55 g fat INTERVENTION: Current TPN meeting 100% of nutrient needs at this time MONITORING AND EVALUATION: Will monitor weight, po intake, labs Time Spent in Nutritional Counseling and Treatment: 0
--- NOTE | 2022-09-14 15:22 | W.PM.PROGNOT ---
Date of Service Date of service: 09/14/22 Time of Service: 15:22 Assessment and Plan Assessment and plan (1) Abdominal pain: Status: Acute Assessment and plan: Afsaneh is doing pretty well after Leonard's procedure for perforated diverticulitis. I will replete her hypokalemia today. We will continue the TPN. I would like to see a little more stool in the bag before we advance her diet. I changed the midline dressings today. The packing gauze was all clean. The soft tissues and fascia are healthy appearing. I replaced it with clean gauze. Subjective Subjective Interval history since last seen: Afsaneh looks pretty good today. she is still complaining of a fair amount of incisional pain, but she says better than with the weekend. She has a little more appetite this morning. She has not been out of the bed yet. Exam GI Inspection: normal to inspection Palpation: soft and tender Percussion: tympanic to percussion Auscultation: hypoactive bowel sounds Other: Her abdomen is soft, and mildly distended. The stoma looks healthy. There is a significant amount of gas in the bag. There is minimal stool in the bag. Objective Last Vital Signs Temp 97.5 F L 09/14/22 07:42 Pulse 65 09/14/22 13:05 Resp 12 09/14/22 13:05 BP 109/49 L 09/14/22 13:05 Pulse Ox 94 09/14/22 13:05 Laboratory Results - last 24 hr 09/14/22 09/14/22 09/14/22 05:45 05:45 05:45 WBC RBC Hgb Hct MCV MCH MCHC RDW Plt Count MPV Immature Gran % Neutrophils % Lymphocytes % Monocytes % Eosinophils % Basophils % Nucleated RBC % Absolute Neutrophils Absolute Lymphocytes Absolute Monocytes Absolute Eosinophils Absolute Basophils PT INR Sodium 144 Potassium 3.4 L Chloride 109 H Carbon Dioxide 29.3 Anion Gap 5.7 BUN 8 Creatinine 0.9 Est GFR (CKD-EPI 2020) 71.83 Glucose 102 Calcium 7.8 L Phosphorus 3.0 Magnesium 1.9 Total Bilirubin 0.2 AST 13 L ALT 16 Alkaline Phosphatase 43 L C-Reactive Protein 8.63 H Total Protein 5.2 L Albumin 1.9 L Procalcitonin 0.1 09/14/22 09/14/22 05:45 05:45 WBC 15.46 H RBC 3.23 L Hgb 9.6 L D Hct 29.5 L MCV 91 MCH 29.7 MCHC 32.5 RDW 12.9 Plt Count 459 H MPV 10.0 Immature Gran % 0.6 Neutrophils % 71.7 Lymphocytes % 17.2 Monocytes % 9.4 Eosinophils % 0.8 Basophils % 0.3 Nucleated RBC % 0.0 Absolute Neutrophils 11.08 H Absolute Lymphocytes 2.66 Absolute Monocytes 1.45 H Absolute Eosinophils 0.12 Absolute Basophils 0.05 PT 12.5 H INR 1.2 H Sodium Potassium Chloride Carbon Dioxide Anion Gap BUN Creatinine Est GFR (CKD-EPI 2020) Glucose Calcium Phosphorus Magnesium Total Bilirubin AST ALT Alkaline Phosphatase C-Reactive Protein Total Protein Albumin Procalcitonin Time Spent with Patient Time Spent with Patient: 25-34 minutes Time was spent: preparing to see the patient(eg.review tests), indepentently interpreting results and counseling the patient
[2022-09-14] MEDS: HYDROmorphone 2 MG/ML VIAL 1 MG IVP (20:44)
[2022-09-14] MEDS: Naloxone 0.4 MG/ML VIAL IVP (20:45)
[2022-09-14] MEDS: LORazepam 2 MG/ML VIAL 1 MG IVP (20:46)
[2022-09-15] VITALS (20 sets, daily range): BP systolic 123–154; BP diastolic 61–132; PULSE 61–90; RESP 11–20; TEMP 36–37; O2SAT 89–97
[2022-09-15] MEDS: FentaNYL/ROPIvacaine 2 mcg/ml and 0.1% 200 ML CADD Cassette EP ×2 (00:55→13:50)
[2022-09-15] MEDS: VANCOMYCIN/WATER (PEG) 1 GM/200 ML BAG IVPB ×3 (01:14→20:57)
[2022-09-15] MEDS: HYDROmorphone 2 MG/ML VIAL 1 MG IVP ×5 (03:00→17:03)
[2022-09-15] MEDS: metroNIDAZOLE 500 MG/100 ML BAG 100 MG IVPB ×3 (06:25→20:58)
[2022-09-15 06:29] LABS: Abs Immature Grans 0.06 10^3/uL (0.0-0.06); Absolute Basophil Count 0.04 10^3/uL (0.0-0.2); Absolute Lymphocyte Count 2.37 10^3/uL (1.2-3.4); Absolute Monocyte Count 1.24 10^3/uL (0.1-0.8); Basophils % 0.4; Eosinophils % 5.2; HCT 32.4 % (36.0-46.0); HGB 10.3 g/dL (11.2-15.7); Immature Grans % 0.6; Lymphocytes % 21.8; MCH 29.2 pg (27.0-33.0); MCHC 31.8 % (32.0-36.0); MCV 92 fL (80-95); MPV 10.3 fL (8.0-11.0); Monocytes % 11.4; Neutrophils % 60.6; Platelet Count 521 10^3/uL (130-400); RBC 3.53 10^6/uL (3.93-5.22); RDW 13.1 % (11.7-14.6); RDW-SD 43.6 fL; WBC 10.87 10^3/uL (4.4-10.8)
[2022-09-15 06:43] LABS: Absolute Eosinophil Count 0.57 10^3/uL (0.0-0.7); Absolute Neutrophil Count 6.59 10^3/uL (1.2-6.7)
[2022-09-15 06:49] LABS: C-Reactive Protein 5.39 mg/dL (0.0-0.3)
[2022-09-15 06:51] LABS: PHOSPHORUS 3.1 mg/dL (2.6-4.7)
[2022-09-15 06:59] LABS: Anion Gap 6.7 mmol/L (3-11); BUN 11 mg/dL (7-18); CO2 28.3 mmol/L (21.0-32.0); CREATININE 0.8 mg/dL (0.55-1.02); Calcium 8.1 mg/dL (8.5-10.1); Chloride 108 mmol/L (98-107); Estimated GFR 82.74 (mL/min/1.73m2); Glucose 130 mg/dL (74-106); Potassium 3.6 mmol/L (3.5-5.1); Sodium 143 mmol/L (136-145)
[2022-09-15] MEDS: Budesonide/Formoterol 160/4.5 6 GM 60 PUFF INH IH ×2 (07:55→20:56)
--- NOTE | 2022-09-15 08:04 | W.ANESEPD ---
Epidural/Spinal Daily Note Date Performed: 09/15/22 Assessment Time: 07:55 Patient Location: Intensive Care Unit Catheter Type in Place: Epidural Catheter Dressing Assessment: Dressing intact with good adherence Catheter Assessment: Catheter Labeled and Intact and Functioning Previous Catheter Depth Noted (cm): 12 Current Catheter Depth (cm): 12 Current Medication Infusion: Ropivacaine 0.1% with Fentanyl 2mcg/ml Current Maintenance Infusion Rate (ml/hour): 6 Current PCEA Bolus Dose (ml): 5 Current Pain Score (0-10): 3 Medication Infusion Stopped, Catheter Removal Planned: No New Bolus Given or Change in Infusion Made: No Daily Management Comments: Currently in bed, stating pain is well controlled. She does have weakness in her legs (L>R), she is afraid to get up out of bed due to this. Discussed options (rectus sheath block vs epidural infusion rate reduction). Plan for reduction of catheter infusion to 6 mL/hr combined with additional IV adjuncts (lorazepam suggested given her appearing very anxious, but with low pain levels). Discussed that with the reduction of the infusion rate her motor may get better, but if she uses the PCEA function as much as she has been, that she will likely remain weak. Completed By: Azar Klein
[2022-09-15] MEDS: Normal Saline Flush 10 ML SYR IVP ×3 (08:07→13:46)
[2022-09-15] MEDS: Ketorolac 15 MG/ML VIAL IVP ×3 (08:07→18:27)
[2022-09-15] MEDS: Enoxaparin 40 MG/0.4 ML SYR SC (09:37)
[2022-09-15] MEDS: Pantoprazole 40 MG VIAL IVP (09:42)
[2022-09-15] MEDS: levoFLOXacin 750 MG/150 ML BAG 100 MG IVPB (09:49)
--- NOTE | 2022-09-15 10:01 | IN_ITS ---
Date of service: 09/15/22 Time of Service: 09:39 PT Notes Visit Reasons: Perforated Diverticulitis Physical Therapy Inpatient Initial Evaluation Date: 09/15/2022 Referring Doctor: FERMIN Cowan PT Orders: PT CONSULT: Extended stay weakness. S/P exploratory laparotomy Precautions: Fall. Standard. Activity as tolerated. Patient Profile/Admitting Diagnosis: Afsaneh is a 61-year-old female admitted to the ED on 09/09/2022 due to increasing abdominal pain. She is diagnosed with ruptured diverticula with intra-abdominal abscesses and is status post exploratory laparotomy, sigmoid colon resection, and colostomy creation on postoperative day 3. PMHX: All Active Problems? Perforated diverticulum (Acute) COPD exacerbation (Acute) Duodenitis (Acute) Gastritis (Acute) Cervicalgia (Acute) Tendonitis of long head of biceps brachii of right shoulder (Acute) Degenerative arthritis of cervical spine (Acute) Arthritis of left glenohumeral joint (Acute) HPV (human papilloma virus) infection (Acute) IBS (irritable bowel syndrome) (Chronic) Skin lesion (Acute) Low back pain (Acute) Lumbar radiculopathy (Acute) Abdominal pain (Acute) Abdominal bloating (Acute) Blood in stool (Acute) Hx of allergic reaction (Acute) Closed fracture of right distal fibula (Acute) Shoulder pain (Acute) Trigger finger of all digits of both hands (Acute) Arthritis of right glenohumeral joint (Acute) No-show for appointment (Acute) Spondylosis, cervical (Acute) Carpal tunnel syndrome, bilateral (Acute) Shoulder pain, bilateral (Acute) Effusion of left knee (Acute) Situational depression (Chronic) Myalgia (Acute) Generalized osteoarthritis of multiple sites (Acute) Patellar tendinitis (Acute) Sinusitis (Acute) Mild memory disturbance (Acute) Rash, skin (Acute) Visit for screening mammogram (Acute) Preventative health care (Acute) Colonoscopy planned (Acute) Frequency of urination (Acute) Eye irritation (Acute) Dysuria (Acute) Ankle joint disorder (Acute) Hypoglycemia (Acute) Cough (Acute) Sinusitis, acute (Acute) Medical History ADHD Cervical spinal stenosis AGATHA III (cervical intraepithelial neoplasia III) Constipation, chronic COPD (chronic obstructive pulmonary disease) COVID Diaphoresis Dyspnea Edentulous Exposure to COVID-19 virus GERD (gastroesophageal reflux disease) Grief reaction Hemangioma of liver Hematemesis History of paresthesia HPV (human papilloma virus) anogenital infection Hyperlipidemia Liver lesion Minimally displaced zone I fracture of sacrum, sequela Nocturnal hypoxia Pneumonia Reactive inflammatory arthritis Restless leg syndrome Seasonal allergic reaction Sleep apnea Supraclavicular lymphadenopathy Tendonitis Tobacco use Surgical History? Arthroscopy, Shoulder History of colonoscopy (~07/05/18) History of esophagogastroduodenoscopy (EGD) (~09/2020) S/P colonoscopy S/P tonsillectomy Trigger Finger release several Social History/Home Situation: Independent with all mobility ADLs prior to surgery without any assistive device. Lives with daughter in a private home with 3 steps to enter. 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 Equipment Owned/DME: None Subjective: Anxious about pain increasing with movement but understands the importance of early mobilization for clot prevention and faster recovery rate. Agreeable to getting out of bed for this session although she is unsure of how much she will be able to tolerate. Nurse Genet stated that patient has been pre-medicated for pain and has the epidural pump available should she need it. Objective: General Observation: Supine in bed. Telemetry monitoring in place. Surgical dressing seen in abdominal area. Mental Status: Alert and oriented as to person, place, time, and purpose. Able to pay attention, focus, and respond appropriately. Pain: 4-5/10 sitting up in bed; 7-8/10 with standing up and walking Vital Signs: Closely monitored via tele ROM: Right Upper Extremity: Shoulder Flexion WFL. Shoulder abduction WFL. Elbow flexion WFL. Wrist flexion WFL. Functional opening and closing of hand WFL. Left Upper Extremity: Shoulder Flexion WFL. Shoulder abduction WFL. Elbow flexion WFL. Wrist flexion WFL. Functional opening and closing of hand WFL. Right Lower Extremity: Hip flexion lacks the last 50% due to pain and anxiety of increased pain. Hip abduction WFL. Knee flexion WFL. Ankle dorsiflexion WFL. Ankle plantarflexion WFL. Left Lower Extremity: Hip flexion lacks the last 50% due to pain and anxiety of increased pain. Hip abduction WFL. Knee flexion WFL. Ankle dorsiflexion WFL. Ankle plantarflexion WFL. Strength: Right Upper Extremity: Shoulder flexors 4/5. Shoulder abductors 4/5. Elbow flexors 4/5. Elbow extensors 4/5. Salvage Mechanic strong. Left Upper Extremity: Shoulder flexors 4/5. Shoulder abductors 4/5. Elbow flexors 4/5. Elbow extensors 4/5. Salvage Mechanic strong. Right Lower Extremity: Hip flexors 3-/5. Hip abductors 3-/5. Knee flexors 4-/5. Knee extensors 4-/5. Ankle dorsiflexors 4/5. Ankle plantarflexors 4/5. Left Lower Extremity: Hip flexors 3-/5. Hip abductors 3-/5. Knee flexors 4-/5. Knee extensors 4-/5. Ankle dorsiflexors 4/5. Ankle plantarflexors 4/5. Bed Mobility/Transfers: Supine to sit minimal assist Sit to supine minimal assist Sit to stand minimal assist Stand to sit contact guard assist Bed to chair contact guard assist Gait: 6-8 steps to transfer from edge of bed to chair placed close to the window. Reported pain in abdominal area about 7-8/10, trunk bent to favor abdominal area but only required contact guard assist. Mildly lightheaded but was able to complete activity albeit slowly. Balance: Static Sitting: Normal Dynamic Sitting: Normal Static Standing: Fair Dynamic Standing: Fair Special Tests: Mobility Limitations Standardized Measure [facility] AM-PAC 6 clicks Basic Mobility Inpatient Short Form: Raw Score: 18 CMS Score: 47% deficit Informed Consent/Education: Patient was instructed in purpose of PT consult and plan of care. Agreeable to proceed with established PT POC to achieve personal goals. Assessment: Requires pre-medication for pain. Anticipates pain. Responds well to encouragement. Should be able to perform mobility ADLs safer and more efficiently if pain is better managed. Should be able to manage at home with family support and PT services. Patient presents with clinical signs and symptoms consistent with current/admitting diagnoses that have resulted to mobility limitations, gait instability, generalized weakness, and overall ADL decline as demonstrated by the following impairment level findings: 1. Decreased strength to B hip major muscle groups 2. Impaired sitting/standing balance 3. Impaired activity tolerance 4. Limitation of joint range of motion in B hips due to pain report 5. Shortness of breath Impairments are contributing to the following functional limitations: 1. Decline in bed mobility skills 2. Decline in transfer skills 3. Difficulty with ambulation without assistive device and physical assistance 4. Increased completion time for mobility ADL performance 5. Increased risk for falls 6. Difficulty with managing steps alone safely Patient is assessed as a 02002 moderate complexity based on the following: History: 61-year-old female with past medical history as indicated above Examination: Demonstrable impairment in strength, balance, and mobility level with underlying impairments and functional limitations as exhibited above as well as deficit score of 47% utilizing the [facility] Mobility Inpatient Short Form Presentation: Evolving Decision Makin moderate complexity Goals: Goals X1 week 1. Supine-Sit independent 2. Sit-Supine independent 3. Sit-Stand independent 4. Stand-Sit independent with FWW 5. Bed-Chair independent with FWWFWW 6. Chair-Bed independent with FWW 7. Independent gait on level surface with use of FWW for at least 300 feet without report of pain nor dyspnea 8. Independent stair negotiation while holding onto B rails for at least 3 steps without report of pain nor dyspnea 9. Independent with home exercise program 10. Good static and dynamic standing balance/tolerance Plan of Care/Treatment Plan: 1-2x/day, 7 days/week x 1 week. Plan of care has been reviewed with the [employer]POR[employer] providing the service under Physical Therapy direction. Initiate Physical Therapy intervention for pain management as needed, strengthening, bed mobility, transfers, gait, stairs, balance training, and use of assistive device. DISCHARGE RECOMMENDATIONS: [] Home with no services [] [X] Home with services. Patient will benefit from home health PT services in order to progress mobility level using least restrictive assistive ambulatory device, assess home safety, identify additional equipment needs, and establish a functional maintenance program that will increase ability of patient to remain at home. [] Home with outpatient PT [] [] SNF for continued rehabilitation [] [] Group Home Care [] [] SNF versus LTC based on ability to participate and progress [] TREATMENT CODE/TIME: 10731 x 20 minutes beginning at 9:39 AM. Thank you for the opportunity to participate in the care of this patient. Fide Pa PT, DPT, CLT [facility] [place], [place]
--- NOTE | 2022-09-15 10:43 | PGE_ITS ---
Date of Service Date of service: 09/15/22 Time of Service: 10:43 Assessment and Plan Assessment and plan (1) Perforated diverticulum: Status: Acute Assessment and plan: POD #2 ex lap & colosotomy for ruptured diverticula & abscess. Abx: levaquin & flagyl & vanc- D#3. cont for full 7-10 days. -open wound. vac placed. TPN- electrolytes addressed. hold po's until passing gas pain control: epidural and toradol. tylenol allergy. pt is 40MME at baseline at home of narcotics & home benzo's. Pt will be difficult to control pain and still require baseline narcotics to prevent w/drawls. GI: Protonix IV DVT: lovenox & SCD's PT: consulted. pt should be up walking Diet: nutrion cosulted for TPN. No output from ostomy yet -will need home RN -will need ostomy supplies -will need home wound vac (2) Hypokalemia: Status: Acute (3) UTI (urinary tract infection): Status: Acute (4) COPD exacerbation: Status: Acute (5) GERD (gastroesophageal reflux disease): (6) Edentulous: (7) Cervical spinal stenosis: (8) Generalized osteoarthritis of multiple sites: Status: Acute (9) Acute on chronic blood loss anemia: Status: Acute Subjective Subjective Interval history since last seen: Pt is She is sitting up in her chair doing crafts. no headaches. No CP or SOB. no productive cough. She has some phlegm earlier but this cleared with doing I-S. No dysuria-she does have a Saenz in place.. no leg pain or swelling. Pt is not passing gas/stool via ostomy. She is tolerating ice chips. She has not been up and walking. She is still c/o pain. She has an epidural in place. She is able to move her feet, and was able to transfer from bed to chair. When she is distracted, she does not have pain. Exam Const General: cooperative, comfortable and no acute distress Orientation: alert, awake and oriented x3 Other: L: CT b/l line site c/d/i cardio- NSR abdomen- BS are high pitched wound: pink and healthy. no granulation tissue yet. wound VAC placed. no coccyx break-down LE- no edema Objective Last Vital Signs Temp 37.0 C 04/04/23 04:00 Pulse 79 09/15/22 06:00 Resp 17 09/15/22 06:00 BP 133/94 H 09/15/22 06:00 Pulse Ox 96 09/15/22 06:00 Laboratory Results - last 24 hr 09/15/22 09/15/22 09/15/22 05:50 05:50 05:50 WBC 10.87 H RBC 3.53 L Hgb 10.3 L Hct 32.4 L MCV 92 MCH 29.2 MCHC 31.8 L RDW 13.1 Plt Count 521 H MPV 10.3 Immature Gran % 0.6 Neutrophils % 60.6 Lymphocytes % 21.8 Monocytes % 11.4 Eosinophils % 5.2 Basophils % 0.4 Nucleated RBC % 0.0 Absolute Neutrophils 6.59 Absolute Lymphocytes 2.37 Absolute Monocytes 1.24 H Absolute Eosinophils 0.57 Absolute Basophils 0.04 Sodium Potassium Chloride Carbon Dioxide Anion Gap BUN Creatinine Est GFR (CKD-EPI 2020) Glucose Calcium Phosphorus 3.1 Magnesium 2.0 C-Reactive Protein 5.39 H 09/15/22 05:50 WBC RBC Hgb Hct MCV MCH MCHC RDW Plt Count MPV Immature Gran % Neutrophils % Lymphocytes % Monocytes % Eosinophils % Basophils % Nucleated RBC % Absolute Neutrophils Absolute Lymphocytes Absolute Monocytes Absolute Eosinophils Absolute Basophils Sodium 143 Potassium 3.6 Chloride 108 H Carbon Dioxide 28.3 Anion Gap 6.7 BUN 11 Creatinine 0.8 Est GFR (CKD-EPI 2020) 82.74 Glucose 130 H Calcium 8.1 L Phosphorus Magnesium C-Reactive Protein Time Spent with Patient Time Spent with Patient: >50 minutes Time was spent: preparing to see the patient(eg.review tests), obtaining and/or reviewing separately otained hiistory, ordering medications,tests, procedures, referring, communicating with other health resident care technician, indepentently interpreting results, counseling the patient, care coordination and other
[2022-09-15 12:53] LABS: Lab Add On Test DONE
[2022-09-15 13:18] LABS: Ferritin 273 ng/mL (8-252)
[2022-09-15] MEDS: LORazepam 2 MG/ML VIAL 1 MG IVP (13:46)
--- NOTE | 2022-09-15 14:54 | PDOC.CMPRO ---
- If Service Date Differs Date of service: 09/15/22 Time of Service: 14:54 Care Management Progress Note S/O: Afsaneh was lying in bed when CM met with her. She stated that she had a good morning, and was able to get out of bed, but now she is in a lot of pain. She had a weighted blanket on that her family brought to her, and she stated that it helps with the pain, and is comfortable. sent a consult stating that Afsaneh will need HH RN for her new ostomy and wound vac. CM will coordinate HH services. CM will continue to follow. A: Afsaneh is a 61 year old female admitted to [facility] on 09/09/22 for perforated diverticulitis. P: Anticipate Afsaneh will be discharged home with no new services when medically cleared. She will follow up with her community providers and plan of care and transport with her daughter, CM will follow and assess for discharge concerns.
[2022-09-16] VITALS (57 sets, daily range): BP systolic 130–156; BP diastolic 61–117; PULSE 62–104; RESP 10–28; TEMP 35.8–37.3; O2SAT 93–98
[2022-09-16] MEDS: Ketorolac 15 MG/ML VIAL IVP ×4 (01:07→17:49)
[2022-09-16] MEDS: metroNIDAZOLE 500 MG/100 ML BAG 100 MG IVPB ×3 (05:54→22:42)
[2022-09-16 06:39] LABS: Abs Immature Grans 0.15 10^3/uL (0.0-0.06); Absolute Basophil Count 0.07 10^3/uL (0.0-0.2); Absolute Eosinophil Count 0.64 10^3/uL (0.0-0.7); Absolute Lymphocyte Count 1.92 10^3/uL (1.2-3.4); Absolute Monocyte Count 0.89 10^3/uL (0.1-0.8); Absolute Neutrophil Count 5.37 10^3/uL (1.2-6.7); Basophils % 0.8; Eosinophils % 7.1; HCT 32.9 % (36.0-46.0); HGB 10.6 g/dL (11.2-15.7); Immature Grans % 1.7; Lymphocytes % 21.2; MCH 29.3 pg (27.0-33.0); MCHC 32.2 % (32.0-36.0); MCV 91 fL (80-95); Monocytes % 9.8; Neutrophils % 59.4; Platelet Count 558 10^3/uL (130-400); RBC 3.62 10^6/uL (3.93-5.22); RDW 12.7 % (11.7-14.6); RDW-SD 42.5 fL; WBC 9.04 10^3/uL (4.4-10.8)
[2022-09-16 07:15] LABS: Anion Gap 5.1 mmol/L (3-11); BUN 12 mg/dL (7-18); CO2 29.9 mmol/L (21.0-32.0); CREATININE 0.8 mg/dL (0.55-1.02); Calcium 8.3 mg/dL (8.5-10.1); Chloride 106 mmol/L (98-107); Estimated GFR 82.74 (mL/min/1.73m2); Glucose 120 mg/dL (74-106); Potassium 3.4 mmol/L (3.5-5.1); Sodium 141 mmol/L (136-145)
[2022-09-16 07:16] LABS: Magnesium 1.9 mg/dL (1.8-2.4); PHOSPHORUS 3.6 mg/dL (2.6-4.7)
[2022-09-16] MEDS: Budesonide/Formoterol 160/4.5 6 GM 60 PUFF INH IH ×2 (07:50→20:34)
[2022-09-16] MEDS: Pantoprazole 40 MG VIAL IVP (08:57)
[2022-09-16] MEDS: Normal Saline Flush 10 ML SYR IVP ×2 (08:58→13:53)
[2022-09-16] MEDS: VANCOMYCIN/WATER (PEG) 1 GM/200 ML BAG IVPB ×2 (08:58→18:59)
[2022-09-16] MEDS: levoFLOXacin 750 MG/150 ML BAG 100 MG IVPB (08:59)
--- NOTE | 2022-09-16 09:48 | CMPROGNOTE_ITS ---
- If Service Date Differs Date of service: 09/16/22 Time of Service: 09:48 Care Management Progress Note S/O: Afsaneh was sitting up in her chair when CM met with her. 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 She expressed her discouragement with her situation, with having a new ostomy, and possibly having a home wound vac. CM discussed supports, such as RN, which she is unsure if she will agree to. CM provided support, and stated that we will continue to work on her plan for support daily. CM will continue to follow. A: Afsaneh is a 61 year old female admitted to [facility] on 09/09/22 for perforated diverticulitis. P: Anticipate Afsaneh will be discharged home with no new services when medically cleared. She will follow up with her community providers and plan of care and transport with her daughter, CM will follow and assess for discharge concerns.
[2022-09-16] MEDS: FentaNYL/ROPIvacaine 2 mcg/ml and 0.1% 200 ML CADD Cassette EP ×2 (11:32→23:59)
[2022-09-16] MEDS: LORazepam 2 MG/ML VIAL 1 MG IVP (13:52)
--- NOTE | 2022-09-16 15:51 | W.ANESEPD ---
Epidural/Spinal Daily Note Date Performed: 09/16/22 Assessment Time: 15:51 Patient Location: Intensive Care Unit Catheter Type in Place: Epidural Catheter Dressing Assessment: Dressing intact with good adherence Catheter Assessment: Catheter Labeled and Intact and Functioning Previous Catheter Depth Noted (cm): 12 Current Catheter Depth (cm): 12 Current Medication Infusion: Ropivacaine 0.1% with Fentanyl 2mcg/ml Current Maintenance Infusion Rate (ml/hour): 6 Current PCEA Bolus Dose (ml): 5 Current Pain Score (0-10): 3 Medication Infusion Stopped, Catheter Removal Planned: No New Bolus Given or Change in Infusion Made: No Daily Management Comments: Patient up to bedside chair, playing with her phone and appears comfortable. Patient voices anxiety about the next steps in her treatment plan. SOCIAL MEDIA MANAGER at bedside and Dr. Abel aware. Patient verbalizes understanding of plan to leave catheter in for this evening and readdress tomorrow AM. Completed By: Angelic Gil
--- NOTE | 2022-09-16 16:56 | PT.INTREAT ---
Date of service: 09/16/22 Time of Service: 16:21 PT Notes Visit Reasons: Perforated Diverticulitis Physical Therapy Inpatient Treatment Note Date: 09/16/2022 Precautions: Fall. Standard. Activity as tolerated. Subjective: Teary-eyed today during both transfers due to pain level, but tries to be compliant. Needs encouragement to participate. Able to make fashion earrings today, could not do it yesterday due to pain she felt. Upset about the IV site in her neck as it keeps on pulling on her skin when she moves. Nurse Azul aware. Objective: General Observation: Supine in bed.? Telemetry monitoring in place.? Surgical dressing seen in abdominal area. Mental Status: Alert and oriented as to person, place, time, and purpose. Able to pay attention, focus, and respond appropriately. Pain: 4-5/10 in surgical incision Vital Signs: Closely monitored via tele Bed Mobility/Transfers: Sit to stand minimal assist due to pain in abdominal area Stand to sit contact guard assist Sit to supine minimal assist to B LE due to pain in surgical incsion area with movement transition Gait: 10 steps in the am and 15 steps in the afternoon using FWW requiring stand by assist with report of increased pain with movement. Denies headache, chest pain, and lightheadedness. THERA EX: Seated LAQ x10 Seatd marches x 10 DBE x 5 Balance: Static Sitting: Normal Dynamic Sitting: Normal Static Standing: Fair Dynamic Standing: Fair Assessment: POD 4 S/P Ex Lap, sigmoid colon resection, and colostomy creation. Reports moderate pain in abdominal area during movement transitions from supine to sit and sit to stand today. Pain intensity seems to be less comapred to yesterday. requires encouragement to participate in therapy due to pain level. Motivated to return home whenever she is able. Needed to press on epidural pump at end of session today. DISCHARGE RECOMMENDATIONS: [] ? Home with no services [] [X] ? Home with services.? Patient will benefit from home health PT services in order to progress mobility level using least restrictive assistive ambulatory device, assess home safety, identify additional equipment needs, and establish a functional maintenance program that will increase ability of patient to remain at home. [] ? Home with outpatient PT [] [] ? SNF for continued rehabilitation [] [] ? Authorization Representative Care [] [] ? SNF versus LTC based on ability to participate and progress [] TREATMENT CODE/TIME: Session 1 -- 40900 x 27 minutes beginning at 11:43 AM. Session 2 -- 17605 x 10 minutes, 75485 x 13 minutes beginning at 16:21 PM.
--- NOTE | 2022-09-16 19:31 | W.PM.PROGNOT ---
Date of Service Date of service: 09/16/22 Time of Service: 15:50 Assessment and Plan Assessment and plan (1) Colonoscopy planned: Status: Acute Assessment and plan: Continue TPN tonight. I will most likley increase diet tomorrow. Labs are reassuring and abdominal exam seems stable or improving. Once she is eating a little more, we can add more enteral analgesia and try to get the epidural out. Subjective Subjective Interval history since last seen: Afsaneh seems depressed today. She is sad about the colostomy and learning who to care for it. She says her pain is the same as yesterday. She has no apetite. Exam GI Other: Abdomen is soft and non-distended. The colostomy has gas and stool in the bag. VAC dressing is clean. Objective Last Vital Signs Temp 98.1 F 09/16/22 17:23 Pulse 81 09/16/22 17:20 Resp 12 09/16/22 17:23 BP 130/83 09/16/22 17:20 Pulse Ox 96 09/16/22 17:23 Laboratory Results - last 24 hr 09/16/22 09/16/22 09/16/22 05:46 05:46 05:46 WBC 9.04 RBC 3.62 L Hgb 10.6 L Hct 32.9 L MCV 91 MCH 29.3 MCHC 32.2 RDW 12.7 Plt Count 558 H MPV 10.0 Immature Gran % 1.7 Neutrophils % 59.4 Lymphocytes % 21.2 Monocytes % 9.8 Eosinophils % 7.1 Basophils % 0.8 Nucleated RBC % 0.0 Absolute Neutrophils 5.37 Absolute Lymphocytes 1.92 Absolute Monocytes 0.89 H Absolute Eosinophils 0.64 Absolute Basophils 0.07 Sodium 141 Potassium 3.4 L Chloride 106 Carbon Dioxide 29.9 Anion Gap 5.1 BUN 12 Creatinine 0.8 Est GFR (CKD-EPI 2020) 82.74 Glucose 120 H Calcium 8.3 L Phosphorus 3.6 Magnesium 1.9 Time Spent with Patient Time Spent with Patient: 25-34 minutes Time was spent: preparing to see the patient(eg.review tests), counseling the patient and care coordination
[2022-09-17] VITALS (36 sets, daily range): BP systolic 104–172; BP diastolic 42–92; PULSE 61–96; RESP 13–28; TEMP 36–37; O2SAT 94–99
[2022-09-17] MEDS: Ketorolac 15 MG/ML VIAL IVP ×4 (00:11→17:10)
[2022-09-17] MEDS: VANCOMYCIN/WATER (PEG) 1 GM/200 ML BAG IVPB ×2 (04:49→14:54)
[2022-09-17] MEDS: metroNIDAZOLE 500 MG/100 ML BAG 100 MG IVPB ×3 (06:39→20:42)
[2022-09-17 06:40] LABS: Abs Immature Grans 0.31 10^3/uL (0.0-0.06); Absolute Basophil Count 0.08 10^3/uL (0.0-0.2); Absolute Lymphocyte Count 2.32 10^3/uL (1.2-3.4); Absolute Monocyte Count 0.97 10^3/uL (0.1-0.8); Absolute Neutrophil Count 6.59 10^3/uL (1.2-6.7); Basophils % 0.7; Eosinophils % 6.6; HCT 32.7 % (36.0-46.0); HGB 10.4 g/dL (11.2-15.7); Immature Grans % 2.8; Lymphocytes % 21.1; MCHC 31.8 % (32.0-36.0); MCV 91 fL (80-95); MPV 10.3 fL (8.0-11.0); Monocytes % 8.8; Platelet Count 572 10^3/uL (130-400); RBC 3.59 10^6/uL (3.93-5.22); RDW 12.8 % (11.7-14.6); RDW-SD 42.5 fL; WBC 10.99 10^3/uL (4.4-10.8)
[2022-09-17 06:41] LABS: Absolute Eosinophil Count 0.73 10^3/uL (0.0-0.7)
[2022-09-17 07:00] LABS: BUN 16 mg/dL (7-18); CREATININE 0.8 mg/dL (0.55-1.02); Calcium 8.3 mg/dL (8.5-10.1); Chloride 107 mmol/L (98-107); Estimated GFR 82.74 (mL/min/1.73m2); Glucose 111 mg/dL (74-106); Potassium 3.5 mmol/L (3.5-5.1); Sodium 142 mmol/L (136-145)
[2022-09-17 07:10] LABS: PHOSPHORUS 3.6 mg/dL (2.6-4.7)
--- NOTE | 2022-09-17 07:34 | W.ANESEPD ---
Epidural/Spinal Daily Note Date Performed: 09/17/22 Assessment Time: 07:35 Patient Location: Intensive Care Unit Catheter Type in Place: Epidural Catheter Dressing Assessment: Dressing intact with good adherence Catheter Assessment: Catheter Labeled, Intact and Functioning and Planned Removal, team aware, Anticoagulant Therapy Addressed Previous Catheter Depth Noted (cm): 12 Current Catheter Depth (cm): 12 Current Medication Infusion: Ropivacaine 0.1% with Fentanyl 2mcg/ml Current Maintenance Infusion Rate (ml/hour): 6 Current PCEA Bolus Dose (ml): 5 Current Pain Score (0-10): 3 Medication Infusion Stopped, Catheter Removal Planned: Yes New Bolus Given or Change in Infusion Made: Yes Standard Monitors Applied: ECG, Blood Pressure, SpO2 and See EMR for corresponding vital signs Epidural Provider Bolus (Indicate Dose Given): None Given Additives (Indicate Dose Given ): None Infusion Medication: New Infusion Medication Medication Infusion: Ropivacaine 0.1% with Fentanyl 2mcg/ml New Maintenance Infusion Rate (ml/hour): 0 New PCEA Bolus Dose (ml): 0 Daily Management Comments: Lovenox order stopped and Rn notified. Pt. agrees to plan to remove epidural today. She has been up in chair, motor 5/5. Completed By: Abhishek De La Cruz
--- NOTE | 2022-09-17 07:38 | W.PM.PROGNOT ---
Date of Service Date of service: 09/17/22 Time of Service: 07:39 Assessment and Plan Assessment and plan (1) Colonoscopy planned: Status: Acute Assessment and plan: Pain is fairly well controlled. Continue to wean down epidural. Saenz in place. This will be DC once epidural is out. Continue with Colostomy Education and Care. At this time Afsaneh is resistant to this and declining to participate. Wound vac in midline wound. This will need to be changed laterday. Activity OOB, sitting in the chair and ambulation at minimum TID Continue with pain management and Colostomy Education. I saw and examined Afsaneh today, and I agree with Demi's notes. She is having a fair amount of pain since we discontinued the epidural. I have increased her control of analgesia. I also restarted her gabapentin. Her labs and exam are reassuring. I will advance her diet this afternoon, but I will ask her to remain n.p.o. after this upcoming midnight. I will make arrangement for a VAC change under anesthesia tomorrow. Alternatively, if the wound looks very clean, we can try to close it. Subjective Subjective Interval history since last seen: Arrived with care and resting comfortably in bed. She states that her colostomy is disgusting. She states that her pain is fairly well controlled at this time, however she is very tired. She denies any fevers, chills or night sweats. Exam Const General: cooperative, healthy appearing and comfortable Orientation: alert and oriented x3 Resp Effort & Inspection: normal respiratory effort, no audible wheezes and no cough GI Other: Wound VAC dressing is in place along the midline incision. Colostomy-ostomy is pink and slightly edematous. Liquid brown stool is within the ostomy appliance. Objective Last Vital Signs Temp 36.5 C 09/17/22 00:41 Pulse 70 09/17/22 06:00 Resp 14 09/17/22 06:12 BP 125/90 09/17/22 06:00 Pulse Ox 98 09/17/22 06:01 Laboratory Results - last 24 hr 09/17/22 09/17/22 09/17/22 05:25 05:25 05:25 WBC 10.99 H RBC 3.59 L Hgb 10.4 L Hct 32.7 L MCV 91 MCH 29.0 MCHC 31.8 L RDW 12.8 Plt Count 572 H MPV 10.3 Immature Gran % 2.8 Neutrophils % 60.0 Lymphocytes % 21.1 Monocytes % 8.8 Eosinophils % 6.6 Basophils % 0.7 Nucleated RBC % 0.0 Absolute Neutrophils 6.59 Absolute Lymphocytes 2.32 Absolute Monocytes 0.97 H Absolute Eosinophils 0.73 H Absolute Basophils 0.08 Sodium 142 Potassium 3.5 Chloride 107 Carbon Dioxide 29.0 Anion Gap 6.0 BUN 16 Creatinine 0.8 Est GFR (CKD-EPI 2020) 82.74 Glucose 111 H Calcium 8.3 L Phosphorus 3.6 Magnesium 2.0 Time Spent with Patient Time Spent with Patient: <25 minutes Time was spent: preparing to see the patient(eg.review tests), counseling the patient and care coordination
[2022-09-17] MEDS: levoFLOXacin 750 MG/150 ML BAG 100 MG IVPB (07:57)
[2022-09-17] MEDS: Pantoprazole 40 MG VIAL IVP (07:58)
[2022-09-17] MEDS: Normal Saline Flush 10 ML SYR IVP ×2 (07:58→08:33)
[2022-09-17] MEDS: HYDROmorphone 2 MG/ML VIAL 1 MG IVP ×4 (08:14→20:41)
[2022-09-17] MEDS: Budesonide/Formoterol 160/4.5 6 GM 60 PUFF INH IH ×2 (08:30→20:15)
[2022-09-17] MEDS: oxyCODONE 10 MG TAB PO ×2 (10:39→14:53)
[2022-09-17] MEDS: Ketorolac 30 MG/ML VIAL IVP (10:58)
[2022-09-17] MEDS: Gabapentin 300 MG CAP PO ×3 (10:59→20:41)
--- NOTE | 2022-09-17 11:37 | CMPROGNOTE_ITS ---
- If Service Date Differs Date of service: 09/17/22 Time of Service: 11:37 Care Management Progress Note S/O: Afsaneh was sitting up in her bed when CM met with her. She stated that she is in a lot of pain, and looked visibly uncomfortable. CM asked if her RN was made aware of her pain, and Afsaneh stated that she had asked for her RN to support her, and was waiting for her to arrive. CM asked the CC to have her RN evaluate her pain, which was attended to promptly. Per RN, Afsaneh helped to care for her own ostomy today, which aligns with her discharge plan, as she will care for her ostomy at home, with the support of her family. CM will continue to follow. A: Afsaneh is a 61 year old female admitted to [facility] on 09/09/22 for perforated diverticulitis. P: Anticipate Afsaneh will be discharged home with no new services when medically cleared. She will follow up with her community providers and plan of care and transport with her daughter, CM will follow and assess for discharge concerns.
--- NOTE | 2022-09-17 11:41 | NUR.NOTE ---
Nursing Note: Patient was transfered to the MS unit @ 1130 from the ICU via WC. Patient was placed in bed, VS obtained & oriented to the room. Call light & bedside table placed within reach. Will continue to monitor.
[2022-09-17] MEDS: LORazepam 2 MG/ML VIAL 1 MG IVP ×3 (12:25→20:41)
--- NOTE | 2022-09-17 14:03 | W.ANESNEU ---
Epidural/Spinal Cath. Removal Date Performed: 09/17/22 Procedure Time: 13:50 Catheter Removal Type: Epidural Catheter Procedure Location: Med/Surg Patient Position: Sitting Catheter Removal Procedure: Dressing Removed, Catheter Removed without Resistance and Catheter Tip Intact Paresthesia: None Procedure Tolerated: No Complications and Patient tolerated well Procedure Outcome: Successful Procedure Comment:: Pt. able to stand, mototr 5/5 with no paresthesias. Pt. motivated to have catheter removed. Performed By: Abhishek De La Cruz
--- NOTE | 2022-09-17 15:32 | PTTR_ITS ---
Date of service: 09/17/22 Time of Service: 13:40 PT Notes Visit Reasons: Perforated Diverticulitis Inpatient Physical Therapy Treatment Note [facility] Date: 09/17/2022 SUBJECTIVE: Afsaneh is pleasant and agreeable to participating in PT. She reports that she has been walking around in her room independently. She states that she is having pain. OBJECTIVE: Pain: No c/o pain BED MOBILITY/TRANSFERS: Rolling L/R: Reviewed log rolling technique for comfort Supine-sit: I Sit-supine: I Sit-stand: I Stand-sit: I GAIT Assistive Device: No AD Weight bearing: Full Assist: I Distance: 5' THEREX: Patient was instructed in a LE strengthening program, completed in a sea angela position, to include: ankle pumps, heel raises, LAQ, hip flexion and hip abduction. All exercises completed to fatigue. ASSESSMENT: Patient tolerated session with complaint of increased pain and fatigue. She requested to hold gait training, but was able to tolerate LE strengthening exercises. PLAN: Continue with global strengthening and general conditioning for improved activity tolerance. TREATMENT CODE/TIME: 10 minutes; 36154 (13:40)
[2022-09-18] MEDS: Ketorolac 15 MG/ML VIAL IVP ×5 (00:19→23:36)
[2022-09-18] MEDS: HYDROmorphone 2 MG/ML VIAL 1 MG IVP ×5 (00:19→20:13)
[2022-09-18] MEDS: LORazepam 2 MG/ML VIAL 1 MG IVP ×5 (00:19→20:13)
[2022-09-18] MEDS: VANCOMYCIN/WATER (PEG) 1 GM/200 ML BAG IVPB ×2 (02:08→13:27)
[2022-09-18] MEDS: metroNIDAZOLE 500 MG/100 ML BAG 100 MG IVPB ×3 (06:07→20:14)
[2022-09-18 06:14] LABS: Abs Immature Grans 0.42 10^3/uL (0.0-0.06); Absolute Basophil Count 0.13 10^3/uL (0.0-0.2); Absolute Monocyte Count 1.37 10^3/uL (0.1-0.8); Absolute Neutrophil Count 7.34 10^3/uL (1.2-6.7); Eosinophils % 6.9; HCT 33.4 % (36.0-46.0); HGB 10.6 g/dL (11.2-15.7); Immature Grans % 3.4; Lymphocytes % 19.2; MCH 29.1 pg (27.0-33.0); MCHC 31.7 % (32.0-36.0); MCV 92 fL (80-95); MPV 9.6 fL (8.0-11.0); Monocytes % 10.9; Neutrophils % 58.6; Platelet Count 559 10^3/uL (130-400); RBC 3.64 10^6/uL (3.93-5.22); RDW 13.1 % (11.7-14.6); RDW-SD 43.1 fL; WBC 12.53 10^3/uL (4.4-10.8)
[2022-09-18 06:34] LABS: Absolute Eosinophil Count 0.86 10^3/uL (0.0-0.7); Absolute Lymphocyte Count 2.41 10^3/uL (1.2-3.4)
[2022-09-18 06:37] LABS: Anion Gap 8.2 mmol/L (3-11); BUN 15 mg/dL (7-18); CO2 26.8 mmol/L (21.0-32.0); CREATININE 0.9 mg/dL (0.55-1.02); Calcium 8.8 mg/dL (8.5-10.1); Chloride 108 mmol/L (98-107); Estimated GFR 71.83 (mL/min/1.73m2); Glucose 95 mg/dL (74-106); Potassium 3.7 mmol/L (3.5-5.1); Sodium 143 mmol/L (136-145)
[2022-09-18 06:41] LABS: Magnesium 1.9 mg/dL (1.8-2.4); PHOSPHORUS 4.4 mg/dL (2.6-4.7)
[2022-09-18 07:31] VITALS: BP 122/74; PULSE 90; RESP 18; TEMP 36.7; O2SAT 96
--- NOTE | 2022-09-18 08:21 | W.PM.PROGNOT ---
Date of Service Date of service: 09/18/22 Time of Service: 08:21 Assessment and Plan Assessment and plan (1) Colonoscopy planned: Status: Acute Assessment and plan: Pain is fairly well controlled. Lyn in place. Will check UA prior to d/c lyn Continue with Colostomy Education and Care. Wound vac in midline wound. -Patient has been more interactive and colostomy cares. -We will plan on removing back and doing a wound assessment under anesthesia in a.m., and hopefully closing the wound. If there is any signs of continued infection then we will replace back. Activity OOB, sitting in the chair and ambulation at minimum TID Continue with pain management and Colostomy Education. -Paperwork was signed for [employer], order supplies for home needs -Patient independently seen and examined. Agree with above findings. Subjective Subjective Interval history since last seen: Afsaneh states she is feeling much better today, however she is having some burning around her lyn. She denies any fevers, chills or night sweats. Exam Const General: cooperative, healthy appearing and comfortable Orientation: alert and oriented x3 Resp Effort & Inspection: normal respiratory effort, no audible wheezes and no cough GI Other: Wound Vac in place Colostomy- Ostomy is pink and edematous. air in the colostomy bag. Scant residual brown stool within the bag. Objective Last Vital Signs Temp 36.7 C 09/18/22 07:31 Pulse 90 09/18/22 07:31 Resp 18 09/18/22 07:31 BP 122/74 09/18/22 07:31 Pulse Ox 96 09/18/22 07:31 Laboratory Results - last 24 hr 09/18/22 09/18/22 09/18/22 05:52 05:52 05:52 WBC 12.53 H RBC 3.64 L Hgb 10.6 L Hct 33.4 L MCV 92 MCH 29.1 MCHC 31.7 L RDW 13.1 Plt Count 559 H MPV 9.6 Immature Gran % 3.4 Neutrophils % 58.6 Lymphocytes % 19.2 Monocytes % 10.9 Eosinophils % 6.9 Basophils % 1.0 Nucleated RBC % 0.0 Absolute Neutrophils 7.34 H Absolute Lymphocytes 2.41 Absolute Monocytes 1.37 H Absolute Eosinophils 0.86 H Absolute Basophils 0.13 Sodium 143 Potassium 3.7 Chloride 108 H Carbon Dioxide 26.8 Anion Gap 8.2 BUN 15 Creatinine 0.9 Est GFR (CKD-EPI 2020) 71.83 Glucose 95 Calcium 8.8 Phosphorus 4.4 Magnesium 1.9 Time Spent with Patient Time Spent with Patient: 25-34 minutes Time was spent: preparing to see the patient(eg.review tests), obtaining and/or reviewing separately otained hiistory, ordering medications,tests, procedures, referring, communicating with other health care management specialist, indepentently interpreting results, counseling the patient and care coordination
[2022-09-18] MEDS: Budesonide/Formoterol 160/4.5 6 GM 60 PUFF INH IH ×2 (08:31→21:08)
[2022-09-18] MEDS: Gabapentin 300 MG CAP PO ×3 (09:28→20:14)
[2022-09-18] MEDS: Pantoprazole 40 MG VIAL IVP (09:28)
[2022-09-18] MEDS: levoFLOXacin 750 MG/150 ML BAG 100 MG IVPB (09:43)
[2022-09-18 10:31] LABS: Bilirubin Negative (Negative); Blood Small (Negative); Clarity Clear (Clear); Glucose Negative (Negative); Ketones Negative (Negative); Leukocyte Esterase Trace (Negative); Nitrite Negative (Negative); Specific Gravity 1.025 (1.005-1.025); Urobilinogen 0.2 mg/dL (Up to 0.2)
--- NOTE | 2022-09-18 10:45 | PT.INTREAT ---
Date of service: 09/18/22 Time of Service: 08:40 PT Notes Visit Reasons: Perforated Diverticulitis Inpatient Physical Therapy Treatment Note [facility] Date: 09/18/2022 PRECAUTIONS: Fall, activity as tolerated SUBJECTIVE: Afsaneh is hesitant, although eventually agreeable to participating in PT. She states that she continues to have significant pain and feels weak. She reports that she is so tired of all this. OBJECTIVE: PAIN: Patient c/o pain with gait training and transfers BED MOBILITY/TRANSFERS Supine-sit: I with HOB at 50 degrees Sit-stand: I Stand-sit: I GAIT Assistive Device: FWW Weight bearing: Full Assist: SBA in a.m.; CGA in p.m. Distance: 150' in a.m.; 150' in p.m. Deviation: Increased fatigue, standing rest x1, increased pain ASSESSMENT: Patient tolerated session with complaint of increased fatigue and abdominal pain with gait training. She continues to demonstrate global weakness, although independence with bed mobility and transfers at this time. PLAN: Continue with gait and transfer training and global strengthening for improved activity tolerance and mobility. TREATMENT CODE/TIME: Session 1: 30 minutes; [id number] x2 (08:40) Session 2: 15 minutes; [id number] (13:30)
--- NOTE | 2022-09-18 11:18 | CMPROGNOTE_ITS ---
- If Service Date Differs Date of service: 09/18/22 Time of Service: 11:18 Care Management Progress Note S/O: Afsaneh was sitting up in her bed when CM met with her. She stated that she has been learning how to care for her ostomy, although she stated that her mother had one, so she is fairly comfortable with the care, although she appreciates a refresher. She stated that per MD, she may return to the OR this afternoon, possibly to close her midline wound. She stated that she is hoping to have her lyn removed, and would prefer to not need the wound vac at home. She reported that her emotional state remains fragile, as this hospitalization has been overwhelming for her. She stated that she feels weak, but she is working with PT and does not feel that she will need PT at home. CM spoke to regarding ostomy supplies, who stated that they will support her with supplies in the community, but that she will need to be discharged with a week's worth of supplies, as it has been challenging to obtain the supplies needed in a timely manner. CM will submit forms for both [employer] and [employer], which Afsaneh is agreeable to. CM will continue to follow. A: Afsaneh is a 61 year old female admitted to [facility] on 09/09/22 for perforated diverticulitis. P: Anticipate Afsaneh will be discharged home with no new services when medically cleared. She will follow up with her community providers and plan of care and transport with her daughter, CM will follow and assess for discharge concerns.
[2022-09-18 11:25] LABS: Bacteria Negative HPF (Negative); C & S Indicated? Yes; Casts Negative LPF (Negative); Crystals Negative HPF (Negative); Epithelial Cells Rare HPF (Negative); Mucus Negative (Negative); WBC 0-2 HPF (0-5)
[2022-09-18 12:46] LABS: Vancomycin, Trough 18.4 ug/mL (10.0-20.0)
[2022-09-18 14:03] VITALS: BP 144/88; PULSE 87; RESP 20; TEMP 36.8; O2SAT 95
--- NOTE | 2022-09-18 14:38 | CHAPLAIN ---
Afsaneh was sitting up in bed, with her weighted blanket on. She said the weighted blanket helps control the pain from her incision and wound. She lives with two other generations of family and was speaking with on the phone when I arrived in the room. I will continue to visit.
[2022-09-18 15:10] VITALS: BP 137/76; PULSE 79; RESP 16; TEMP 36.7; O2SAT 97
[2022-09-18] MEDS: Methocarbamol 750 MG TAB PO ×2 (18:03→20:14)
[2022-09-18 23:49] VITALS: BP 123/66; PULSE 89; RESP 18; TEMP 36.4; O2SAT 96
[2022-09-19] MEDS: LORazepam 2 MG/ML VIAL 1 MG IVP ×3 (01:40→19:10)
[2022-09-19] MEDS: HYDROmorphone 2 MG/ML VIAL 1 MG IVP ×3 (01:40→11:10)
[2022-09-19] MEDS: VANCOMYCIN/WATER (PEG) 1 GM/200 ML BAG IVPB (02:27)
[2022-09-19] MEDS: metroNIDAZOLE 500 MG/100 ML BAG 100 MG IVPB (05:39)
[2022-09-19] MEDS: Ketorolac 15 MG/ML VIAL IVP ×2 (05:40→12:22)
[2022-09-19 07:00] LABS: Abs Immature Grans 0.32 10^3/uL (0.0-0.06); Absolute Basophil Count 0.13 10^3/uL (0.0-0.2); Absolute Eosinophil Count 0.81 10^3/uL (0.0-0.7); Absolute Monocyte Count 1.48 10^3/uL (0.1-0.8); Absolute Neutrophil Count 6.99 10^3/uL (1.2-6.7); Basophils % 1.1; Eosinophils % 6.7; HCT 34.3 % (36.0-46.0); HGB 10.9 g/dL (11.2-15.7); Immature Grans % 2.6; Lymphocytes % 19.7; MCH 29.3 pg (27.0-33.0); MCHC 31.8 % (32.0-36.0); MCV 92 fL (80-95); MPV 10.2 fL (8.0-11.0); Monocytes % 12.2; Neutrophils % 57.7; Platelet Count 576 10^3/uL (130-400); RBC 3.72 10^6/uL (3.93-5.22); RDW 13.3 % (11.7-14.6); RDW-SD 44.7 fL; WBC 12.11 10^3/uL (4.4-10.8)
[2022-09-19 07:03] LABS: Absolute Lymphocyte Count 2.39 10^3/uL (1.2-3.4)
[2022-09-19 07:22] LABS: Anion Gap 7.7 mmol/L (3-11); BUN 18 mg/dL (7-18); CO2 26.3 mmol/L (21.0-32.0); CREATININE 0.9 mg/dL (0.55-1.02); Calcium 9.1 mg/dL (8.5-10.1); Chloride 108 mmol/L (98-107); Estimated GFR 71.83 (mL/min/1.73m2); Glucose 98 mg/dL (74-106); Magnesium 2.1 mg/dL (1.8-2.4); Sodium 142 mmol/L (136-145)
[2022-09-19 07:29] LABS: C-Reactive Protein 0.82 mg/dL (0.0-0.3)
[2022-09-19 07:43] VITALS: BP 154/84; PULSE 87; RESP 19; TEMP 36.7; O2SAT 97
--- NOTE | 2022-09-19 07:51 | ANES.PREOP_ITS ---
General Info Date of Service Date Performed: 09/19/22 Height: 5 ft 1 in Weight: 76.3 kg Body Mass Index (BMI): 31.8 Surgical Procedure: Operation Date: 09/12/22 16:40 Proposed Procedure Side Surgeon p Exploratory Laparotomy Nell Santoro MD Actual Procedure Side Surgeon p Exploratory Laparotomy, Bowel Resection with Ostomy & Central Line Placement Nell Santoro MD Pre-Op Diagnosis Post-Op Diagnosis INTRA ABDOMINAL ABSCESS AND FREE AIR IN ABDOMEN INTRA ABDOMINAL ABSCESS AND FREE AIR IN ABDOMEN Operation Date: 09/19/22 09:10 Proposed Procedure Side Surgeon p Wound Closure/ Wound Vac Change Sheryl Tanner, DO Meds Allergies and Home Medications Allergies Allergy/AdvReac Type Severity Reaction Status Date / Time acetaminophen Allergy Severe Hives Verified 09/08/22 12:23 [From Mapap (acetaminophen)] cephalexin [Cephalexin] Allergy Intermediate Skin Rash Unverified 09/01/22 13:24 Penicillins Allergy Intermediate rash with Unverified 09/01/22 13:24 all cillins ampicillin Allergy Mild Skin Rash Unverified 09/01/22 13:24 atorvastatin Allergy Mild Unverified 09/09/22 21:25 cefprozil [From Cefzil] Allergy Mild Skin Rash Unverified 09/01/22 13:24 Cephalosporins Allergy Mild Hives Unverified 09/01/22 13:24 clindamycin Allergy Mild Skin Rash Unverified 09/01/22 13:24 doxycycline Allergy Mild Skin Rash Unverified 09/01/22 13:24 varenicline [From Chantix] Allergy Mild Unverified 09/01/22 13:24 amoxicillin Allergy Unknown Hives Unverified 09/01/22 13:24 bupropion Allergy Unverified 09/09/22 21:28 cefuroxime [From Ceftin] Allergy Unverified 09/09/22 21:28 clarithromycin [From Biaxin] Allergy rash/hives Unverified 09/01/22 13:24 duloxetine [From Cymbalta] AdvReac Intermediate made me Unverified 09/01/22 13:24 feel very weird linaclotide [From Linzess] AdvReac Mild Diarrhea Unverified 09/01/22 13:24 nicotine [From Nicorette] AdvReac Mild Nauseaous Unverified 03/21/23 13:24 adhesive tape AdvReac Unknown Skin Rash Unverified 09/01/22 13:24 adhesive AdvReac Topical Unverified 09/01/22 13:24 Irritation banana AdvReac abd Unverified 09/01/22 13:24 bloating codeine AdvReac sick Unverified 09/01/22 13:24 hydrocodone [From Vicodin] AdvReac cold Verified 09/01/22 13:24 sweats, vomiting black hair dye Allergy Intermediate Hives Uncoded 09/01/22 13:24 eggs Allergy bloating Uncoded 09/01/22 13:24 Home Medication Medication Instructions Recorded ibuprofen 200 mg tablet (Ibuprofen 200 mg PO QID PRN PRN 09/18/15 IB) albuterol sulfate 2.5 mg/3 mL 2.5 mg inhalation Q4H PRN 06/26/19 (0.083 %) solution for nebulization albuterol sulfate 90 mcg/actuation 2 puff inhalation Q4-5H PRN 06/26/19 aerosol inhaler (ProAir HFA) pramipexole 0.125 mg tablet 0.125 mg PO DAILY 06/26/19 (Mirapex) fluticasone propionate 50 1 spray intranasal DAILY PRN 06/26/20 mcg/actuation nasal spray,suspension (Flonase Allergy Relief) oxycodone 10 mg tablet 10 mg PO QID PRN 08/28/20 sucralfate 1 gram tablet (Carafate) 1 g PO QACHS #120 tabs 09/27/20 aspirin 81 mg tablet,delayed 81 mg PO DAILY 05/12/22 release docusate sodium 100 mg capsule 100 mg PO PRN PRN 05/12/22 (Colace) fluticasone 250 mcg-salmeterol 50 1 inh inhalation BID 05/12/22 mcg/dose blistr powdr for inhalation (Advair Diskus) fluticasone propionate 50 1 spray intranasal DAILY 05/12/22 mcg/actuation nasal spray,suspension (Flonase Allergy Relief) lactobacillus combination no.9 4 10,000 mmu cells PO DAILY 05/12/22 billion cell capsule (Adult 50 Plus Probiotic) umeclidinium 62.5 mcg/actuation 1 inh inhalation DAILY 05/12/22 blister powder for inhalation (Incruse Ellipta) Inhaler, Assist Devices [Pocket 1 ea miscellaneous DIRECTED ##0 05/18/22 Chamber] bupropion HCl 150 mg 24 hr tablet, 150 mg PO QAM #30 tabs 05/18/22 extended release dextromethorphan-guaifenesin 10 10 ml PO Q4H PRN PRN #0 mL 05/18/22 mg-100 mg/5 mL oral syrup gabapentin 100 mg capsule See Rx Instructions .Route 05/18/22 .COMPLEX #90 caps prednisone 20 mg tablet 40 mg PO DAILY #3 tabs 05/18/22 methylphenidate HCl 10 mg tablet 10 mg PO BID 06/18/22 naloxone 4 mg/actuation nasal 4 mg intranasal Q2M PRN 06/18/22 spray (Narcan) levofloxacin 750 mg tablet 750 mg PO QAM #5 tabs 09/06/22 metronidazole 500 mg tablet 500 mg PO TID #15 tabs 09/06/22 omeprazole 40 mg capsule,delayed 20 mg PO DAILY 09/09/22 release Current Visit Medications: Current Medications Generic Name Dose Route Start Last Admin Trade Name Freq PRN Reason Stop Dose Admin Albuterol Sulfate 2.5 mg 09/10/22 19:45 Albuterol 2.5 Mg/3 Ml Inh Soln Vial IH Q4H PRN PRN Budesonide/Formoterol Fumarate 0 puff 09/10/22 20:00 09/18/22 21:08 Budesonide/Formoterol 160/4.5 6 Gm 60 Puff Inh IH 2 puff BID KHANH Administration Dimethicone/Zinc Oxide 0 gm 09/09/22 22:22 Liliana Protect Cream 142 Gm Tube TP PRN PRN Gabapentin 300 mg 09/17/22 14:00 09/18/22 20:14 Gabapentin 300 Mg Cap PO 300 mg TID KHANH Administration Hydromorphone HCl 1 mg 09/13/22 07:21 09/19/22 01:40 Hydromorphone 2 Mg/Ml Vial IVP 1 mg Q3H PRN PRN Administration Metronidazole 500 mg in 100 mls @ 100 mls/hr 09/10/22 06:00 09/19/22 05:39 Flagyl IVPB 100 mls/hr Q8H KHANH Administration Levofloxacin 750 mg in 150 mls @ 100 mls/hr 09/13/22 08:30 09/18/22 12:00 Levaquin Premixed Bag IVPB Infused Q24H KHANH Infusion Protocol Fat Emulsion 50 gm in 250 mls @ 31.25 mls/hr 09/14/22 10:00 09/18/22 17:48 Intralipid 20% IVPB Infused DAILY@1000 KHANH Infusion Sodium/Potass/Mag/Arthur/Chlor/ 1,031 mls @ 85.917 mls/hr 09/14/22 17:00 09/18/22 18:04 Acetate 20 ml/ Multivitamins IV 85.9 mls/hr 10 ml/ Zinc/Copper/Manganese/ .BY DURATION KHANH Administration Selenium 1 ml/ Amino Acids/ Dextrose Sodium/Potass/Mag/Arthur/Chlor/ 1,020 mls @ 85 mls/hr 09/14/22 17:00 09/19/22 05:41 Acetate 20 ml/ Amino Acids/ IV 85 mls/hr Dextrose .BY DURATION KHANH Administration Vancomycin/PEG/NADA/Lysine/Water 1 gm in 200 mls @ 133.333 mls/hr 09/18/22 14:00 09/19/22 02:27 Vancocin Injection IVPB 133.333 mls/hr Q12H KHANH Administration Protocol Ketorolac Tromethamine 15 mg 09/15/22 12:04 09/19/22 05:40 Ketorolac 15 Mg/Ml Vial IVP 09/20/22 12:01 15 mg Q6H KHANH Administration Lorazepam 1 mg 09/12/22 20:05 09/19/22 01:40 Lorazepam 2 Mg/Ml Vial IVP 1 mg Q3H PRN PRN Administration Methocarbamol 750 mg 09/18/22 16:00 09/18/22 20:14 Methocarbamol 750 Mg Tab PO 750 mg QID KHANH Administration Ondansetron HCl 4 mg 09/12/22 20:16 09/12/22 20:40 Ondansetron 4 Mg/2 Ml Vial IVP 4 mg Q4H PRN PRN Administration Oxycodone HCl 10 mg 09/17/22 10:48 09/17/22 14:53 Oxycodone 10 Mg Tab PO 10 mg Q6H PRN PRN Administration Pantoprazole Sodium 40 mg 09/13/22 08:30 09/18/22 09:28 Pantoprazole 40 Mg Vial IVP 40 mg DAILY KHANH Administration Sodium Chloride 10 ml 09/14/22 05:32 06/23 08:33 Normal Saline Flush 10 Ml Syr IVP 10 ml PRN PRN Administration PFSH Active Problems Active Problems: Problem Status Onset Code Acute on chronic blood loss anemia D62 Hypokalemia E87.6 UTI (urinary tract infection) N39.0 Perforated diverticulum K57.80 COPD exacerbation J44.1 Duodenitis K29.80 Gastritis K29.70 Cervicalgia M54.2 Tendonitis of long head of biceps brachii of right shoulder M75.21 Degenerative arthritis of cervical spine M47.812 Arthritis of left glenohumeral joint M19.012 HPV (human papilloma virus) infection B97.7 IBS (irritable bowel syndrome) K58.9 Skin lesion L98.9 Low back pain M54.5 Lumbar radiculopathy M54.16 Abdominal pain R10.9 Abdominal bloating R14.0 Blood in stool K92.1 Hx of allergic reaction Z88.9 Closed fracture of right distal fibula S82.831A Shoulder pain M25.519 Trigger finger of all digits of both hands M65.321, M65.311, M65.312, M65.322, M65.331 Arthritis of right glenohumeral joint M19.011 No-show for appointment Z53.29 Spondylosis, cervical M47.812 Carpal tunnel syndrome, bilateral G56.03 Shoulder pain, bilateral M25.511, M25.512 Effusion of left knee M25.462 Situational depression Myalgia M79.10 Generalized osteoarthritis of multiple sites M15.9 Patellar tendinitis M76.50 Sinusitis J32.9 Mild memory disturbance R41.3 Rash, skin R21 Visit for screening mammogram Z12.31 Preventative health care Z00.00 Colonoscopy planned Frequency of urination R35.0 Eye irritation H57.89 Dysuria R30.0 Ankle joint disorder M19.079 Hypoglycemia E16.2 Cough R05 Sinusitis, acute J01.90 Medical History Medical History ADHD Cervical spinal stenosis AGATHA III (cervical intraepithelial neoplasia III) Constipation, chronic COPD (chronic obstructive pulmonary disease) COVID Diaphoresis Dyspnea Edentulous Exposure to COVID-19 virus GERD (gastroesophageal reflux disease) Grief reaction Hemangioma of liver Hematemesis History of paresthesia HPV (human papilloma virus) anogenital infection Hyperlipidemia Liver lesion Minimally displaced zone I fracture of sacrum, sequela Nocturnal hypoxia Pneumonia Reactive inflammatory arthritis Restless leg syndrome Seasonal allergic reaction Sleep apnea Supraclavicular lymphadenopathy Tendonitis Tobacco use Surgical History Surgical History Arthroscopy, Shoulder History of colonoscopy (~07/05/18) History of esophagogastroduodenoscopy (EGD) (~09/2020) S/P colonoscopy S/P tonsillectomy Trigger Finger release several Tobacco Smoking/Tobacco Use Status: Former Tobacco Use Alcohol Alcohol Intake: never Substance Use Substance use: Never Substance use type: does not use Vital Signs and Lab Results Vital Signs Most Recent Vital Signs in EMR: Most Recent Vital Signs Temp Pulse Resp BP Pulse Ox 36.7 C 87 19 154/84 H 97 09/19/22 07:43 09/19/22 07:43 09/19/22 07:43 09/19/22 07:43 09/19/22 07:43 Point of Care Results Point of Care Results: Finger Stick Blood Glucose 101 09/19/22 06:33 Lab Results 09/19/22 06:18 09/19/22 06:18 Blood Type / Crossmatch: Patient ABO/Rh A Positive 09/12/22 Antibody Screen NEGATIVE 09/12/22 Complete Blood Count: White Blood Count 12.11 10^3/uL (4.4-10.8) H 09/19/22 06:18 Red Blood Count 3.72 10^6/uL (3.93-5.22) L 09/19/22 06:18 Hemoglobin 10.9 g/dL (11.2-15.7) L 09/19/22 06:18 Hematocrit 34.3 % (36.0-46.0) L 09/19/22 06:18 Platelet Count 576 10^3/uL (130-400) H 09/19/22 06:18 Venous Blood Lactate 0.7 mmol/L (0.6-1.4) 09/09/22 22:07 Complete Metabolic Panel: Sodium 142 mmol/L (136-145) 09/19/22 06:18 Potassium 4.0 mmol/L (3.5-5.1) 09/19/22 06:18 Chloride 108 mmol/L (98-107) H 09/19/22 06:18 Carbon Dioxide 26.3 mmol/L (21.0-32.0) 09/19/22 06:18 BUN 18 mg/dL (7-18) 09/19/22 06:18 Creatinine 0.9 mg/dL (0.55-1.02) 09/19/22 06:18 Est GFR (CKD-EPI 2020) 71.83 (mL/min/1.73m2) 09/19/22 06:18 Magnesium 2.1 mg/dL (1.8-2.4) 09/19/22 06:18 Calcium 9.1 mg/dL (8.5-10.1) 09/19/22 06:18 Albumin 1.9 g/dL (3.4-5.0) L 09/14/22 05:45 Glucose 98 mg/dL (74-106) 09/19/22 06:18 C-Reactive Protein 0.82 mg/dL (0.0-0.3) H 09/19/22 06:18 Liver Function Panel: Alanine Aminotransferase (ALT/SGPT) 16 U/L (14-59) 09/14/22 05: 45 Aspartate Amino Transf (AST/SGOT) 13 U/L (15-37) L 09/14/22 05: 45 Coagulation Panel: INR International Normalized Ratio 1.2 (0.9-1.1) H 09/14/22 05 :45 Prothrombin Time 12.5 sec (9.3-11.0) H 09/14/22 05:45 Cardiac Panel: No Data to Display Arterial Blood Gas: No Data to Display Venous Blood Gas: No Data to Display Pancreas Panel: Lipase 24 U/L (16-77) 09/09/22 20:55 Thyroid Panel: No Data to Display Infectious Disease: Coronavirus (COVID-19)(PCR) Negative (Negative) 09/09/22 22:36 Coronavirus 2019 Source Nasal/Nares 09/09/22 22:36 Blood Cultures: No Data to Display Toxicology Panel: No Data to Display Imaging and Studies Imaging and Studies Study information below may be from another EMR and interpreted by another provider. Please see original notes in EMR for more complete details. EKG Summary: DATE/TIME OF SERVICE: 05/15/22 1830 : 1960PERFORMING LOCATION: APPROVED REPORT Exam: Resting ECG Reason for Exam: dyspnea Patient Location: E HR:83 bpm ECG Measurements Heart Rate 83 AXIS WI 159 P 49 QRSd 91 QRS 61 QT 382 T59 QTc 448 Conclusion Sinus rhythm...normal P axis, V-rate 60- 99 Normal [place] Normal Electrocardiogram Pulmonary Function Summary: Date of service: 06/15/22 Time of Service: 13:00 Pulmonary Function Test Result Requesting Provider Soraida Sims Indications: COPD Interpretation Spirometry: There is moderate airflow limitation. There is a significant bronchodilator response. Lung Volumes: There is air trapping Diffusion Capacity: Normal diffusion Airway Pressure: Increased airways resistance Impression Moderate airflow obstruction with air trapping, a normal diffusion and a significant bronchodilator response. In the correct clinical context this may likely represent COPD (chronic bronchitis) or asthma-COPD overlap syndrome. Clinical Correlation therefore is recommended. Anesthesia Assessment and Plan Anesthesia History Personal History: No History of Anesthesia Complications Family History: No Family History of Anesthesia Complications Exercise Tolerance Exercise Tolerance: Metabolic Equivalents>4 Cardiac & Pulmonary Exam Cardiac Exam: Normal S1/S2 Heart Sounds Pulmonary Exam: Clear Bilateral Breath Sounds Implantable Cardiac Device Does patient have a Pacemaker or an ICD?: No Airway Exam Known Difficult Airway: Yes Mallampati Class: 2 Mouth Opening: Normal (> 3cm) Thyromental Distance: Greater than 3 cm Neck Range of Motion: Full ROM Neck Circumference: Normal Teeth Condition: Removable Dentures/Plates Upper ASA Classification ASA Score: ASA 3 Emergency Case?: No NPO Status NPO Status: NPO Clears >2 hours, Solids >8 hours Anesthesia Plan Resuscitation Status: Full Code Anesthesia Technique: General Anesthesia Airway Planned: Natural Airway Monitors Used: Standard Monitors
[2022-09-19] MEDS: Normal Saline Flush 10 ML SYR IVP ×6 (07:53→19:10)
[2022-09-19] MEDS: Pantoprazole 40 MG VIAL IVP (07:53)
[2022-09-19] MEDS: levoFLOXacin 750 MG/150 ML BAG 100 MG IVPB (07:54)
[2022-09-19] MEDS: Gabapentin 300 MG CAP PO ×2 (07:54→12:22)
[2022-09-19] MEDS: Methocarbamol 750 MG TAB PO ×4 (07:54→20:49)
[2022-09-19 08:02] LABS: Ferritin 231 ng/mL (8-252)
[2022-09-19] MEDS: Budesonide/Formoterol 160/4.5 6 GM 60 PUFF INH IH ×2 (08:21→20:48)
--- NOTE | 2022-09-19 08:55 | W.PM.OP ---
Date of service: 09/19/22 Time of Service: 08:55 Operative Note Operative Note DATE OF PROCEDURE: 09/12/22 PRE-OP DIAGNOSIS: Ruptured diverticula POST-OP DIAGNOSIS: same PROCEDURE: Removal of wound VAC and wound irrigation and debridement SURGEON: Sheryl Tanner ANESTHESIA TYPE: General:No Airway Refer to Anesthesia Record ESTIMATED BLOOD LOSS: 0 PATHOLOGY: none sent (sigmoid colon) COMPLICATIONS: None Patient was transported to: PACU Patient's condition: stable Procedure Description: Patient is coming to the OR today for wound VAC change, wound evaluation, and possibly wound closure. Informed consent is obtained explaining risks and benefits of the procedure including but not limited to: Bleeding, infection, pneumonia, blood clots, complication of administered medications, complication of anesthesia, subsequent wound infections and scarring. Patient is brought to the operative room suite and placed in the supine position with all bony surfaces padded. Anesthesia is administered per the department of anesthesia. The wound VAC is removed. The wound is interrogated. She has good beefy granulation tissue with no necrosis. The fascia is intact. She is prepped and draped in the usual sterile fashion using a Betadine scrub solution. Timeout is performed. 30 cc of 1% lidocaine plain is used for local anesthetization. The wound was then irrigated with 2 L of sterile saline. There is no bleeding noted. The tissue was brought together in 4 areas with 0 Prolene. The skin is then stapled. Because dressing is applied. There is no bleeding noted. Patient tolerated the procedure well without complication. She is transferred back to the floor in stable condition.
[2022-09-19] MEDS: Normal Saline 1,000 ML 30 ML IV (09:05)
[2022-09-19 09:06] VITALS: BMI 31.8
[2022-09-19] MEDS: Lidocaine 1% Pres-Free 30 ML VIAL (09:40)
--- NOTE | 2022-09-19 09:51 | PT.INTREAT ---
Date of service: 09/19/22 Time of Service: 07:50 PT Notes Visit Reasons: Perforated Diverticulitis Inpatient Physical Therapy Treatment Note [facility] Date: 09/19/2022 PRECAUTIONS: Fall, activity as tolerated SUBJECTIVE: Afsaneh is hesitant, although eventually agreeable to participating in PT. She reports that she continues to have severe pain. Per nursing, patient is scheduled for a procedure in the OR this morning. OBJECTIVE: PAIN: Patient c/o pain with gait training and transfers BED MOBILITY/TRANSFERS Sit-stand: I Stand-sit: I GAIT Assistive Device: No AD (pushed IV pole) Weight bearing: Full Assist: SBA Distance: 100' Deviation: Increased fatigue, standing rest x1, increased pain ASSESSMENT: Patient tolerated session with complaint of increased fatigue and abdominal pain with gait training. She continues to demonstrate global weakness, although independence with bed mobility and transfers at this time. PLAN: Continue with gait and transfer training and global strengthening for improved activity tolerance and mobility. TREATMENT CODE/TIME: 10 minutes; 66599 (07:50)
--- NOTE | 2022-09-19 10:14 | PGE_ITS ---
Date of Service Date of service: 09/19/22 Time of Service: 10:15 Assessment and Plan Assessment and plan (1) Acute on chronic blood loss anemia: Status: Acute Assessment and plan: Ferritin is in normal range (2) Perforated diverticulum: Status: Acute Assessment and plan: Postop day #6 exploratory laparotomy colostomy creation -Today we did a wound exploration and primary closure of skin with the neha was placed. She still has a mild elevation of white count and platelets. CRP is come back down to normal. She has no fever or chills. And clinically is doing well. However she does have high anxiety and poor coping skills. She is not coping well with the new colostomy. Staff will continue to work with her. DC TPN and Accu-Cheks and glucose coverage. Patient can go to regular diet.- -Adjusted pain medication for all oral. She is back on her Wellbutrin. We are going to need to wean her off of the Ativan. Her home meds were restarted -DC Vanco and Flagyl. Continue with Levaquin. Labs reviewed and adjustments made to electrolytes Encourage ambulation-and physical therapy Paperwork was filled out for ostomy supplies on 09/18 Anticipate discharge to home versus rehab Wednesday or Wednesday.. (3) Degenerative arthritis of cervical spine: Status: Acute Qualifiers: Spinal osteoarthritis complication: with radiculopathy Qualified Code(s): M47.22 - Other spondylosis with radiculopathy, cervical region (4) Edentulous: (5) COPD (chronic obstructive pulmonary disease): (6) AGATHA III (cervical intraepithelial neoplasia III): (7) Constipation, chronic: (8) Hyperlipidemia: (9) Tobacco use: (10) Diverticulosis: Status: Acute Subjective Subjective Interval history since last seen: Pt is doing well. no headaches. No CP or SOB. no productive cough. no dysuria. no leg pain or swelling. Patient complains of severe pain everywhere. She is on chronic narcotics at home. Attempted to adjust her medications. Exam Const Other: PHYSICAL EXAM GENERAL APPEARANCE: oriented, x 3,? in no acute distress HYDRATION: Well hydrated HEAD, EYES, EARS, NECK, THROAT: Head is normocephalic, pupils equal, round, reactive to light and accommodation, ocular movement intact, sclera clear and no jaundice. ?Dentition intact. No sore throat.? No jaw pain. No thrush NECK: ? Trachea midline.? Neck supple.? No JVD. Central line site is clean dry and intact. LUNGS: normal respiration/normal chest excursion. ?Clear to auscultation bilaterally. ?No wheeze. ?HEART: Regular rate and rhythm. no murmurs EXTREMITY: No edema or cyanosis.? no leg pain, redness, swelling.? No sacral coccygeal breakdown ABDOMEN: soft good BS.? Normal bowel sounds.? No hernias.? Objective Last Vital Signs Temp 36.7 C 09/19/22 07:43 Pulse 87 09/19/22 07:43 Resp 19 09/19/22 07:43 BP 154/84 H 09/19/22 07:43 Pulse Ox 97 09/19/22 07:43 Laboratory Results - last 24 hr 09/18/22 09/18/22 09/19/22 10:10 11:38 06:18 WBC RBC Hgb Hct MCV MCH MCHC RDW Plt Count MPV Immature Gran % Neutrophils % Lymphocytes % Monocytes % Eosinophils % Basophils % Nucleated RBC % Absolute Neutrophils Absolute Lymphocytes Absolute Monocytes Absolute Eosinophils Absolute Basophils Sodium Potassium Chloride Carbon Dioxide Anion Gap BUN Creatinine Est GFR (CKD-EPI 2020) Glucose Calcium Phosphorus 5.0 H Magnesium Ferritin 231 C-Reactive Protein 0.82 H Urine Color Yellow Urine Clarity Clear Urine pH 6.0 Ur Specific [place] 1.025 Urine Protein Negative Urine Ketones Negative Urine Blood Small H Urine Nitrite Negative Urine Bilirubin Negative Urine Urobilinogen 0.2 Ur Leukocyte Esterase Trace H Urine RBC 10-20 H Urine WBC 0-2 Ur Epithelial Cells Rare Urine Crystals Negative Urine Bacteria Negative Urine Casts Negative Urine Mucus Negative Ur Culture Indicated? Yes Urine Glucose Negative Vancomycin Trough 18.4 09/19/22 09/19/22 06:18 06:18 WBC 12.11 H RBC 3.72 L Hgb 10.9 L Hct 34.3 L MCV 92 MCH 29.3 MCHC 31.8 L RDW 13.3 Plt Count 576 H MPV 10.2 Immature Gran % 2.6 Neutrophils % 57.7 Lymphocytes % 19.7 Monocytes % 12.2 Eosinophils % 6.7 Basophils % 1.1 Nucleated RBC % 0.0 Absolute Neutrophils 6.99 H Absolute Lymphocytes 2.39 Absolute Monocytes 1.48 H Absolute Eosinophils 0.81 H Absolute Basophils 0.13 Sodium 142 Potassium 4.0 Chloride 108 H Carbon Dioxide 26.3 Anion Gap 7.7 BUN 18 Creatinine 0.9 Est GFR (CKD-EPI 2020) 71.83 Glucose 98 Calcium 9.1 Phosphorus Magnesium 2.1 Ferritin C-Reactive Protein Urine Color Urine Clarity Urine pH Ur Specific [place] Urine Protein Urine Ketones Urine Blood Urine Nitrite Urine Bilirubin Urine Urobilinogen Ur Leukocyte Esterase Urine RBC Urine WBC Ur Epithelial Cells Urine Crystals Urine Bacteria Urine Casts Urine Mucus Ur Culture Indicated? Urine Glucose Vancomycin Trough Time Spent with Patient Time Spent with Patient: >50 minutes Time was spent: preparing to see the patient(eg.review tests), obtaining and/or reviewing separately otained hiistory, ordering medications,tests, procedures, referring, communicating with other health customer care coordinator, indepentently interpreting results, counseling the patient and care coordination
[2022-09-19 10:17] VITALS: BP 136/76; PULSE 75; RESP 14; TEMP 35.8; O2SAT 98
--- NOTE | 2022-09-19 11:50 | ANES.POST_ITS ---
Postoperative Evaluation Date, Time and Location Date Performed: 09/19/22 Time Performed: 10:30 Patient Location: Med/Surg Vital Signs Most Recent Imported Vital Signs: Most Recent Vital Signs Temp Pulse Resp BP Pulse Ox 35.8 C L 75 14 136/76 98 09/19/22 10:17 09/19/22 10:17 09/19/22 10:17 09/19/22 10:17 09/19/22 10:17 Most Recent Vital Signs Temp Pulse Resp BP Pulse Ox 36.5 C 102 H 13 95/72 L 95 09/13/22 07:48 09/13/22 09:26 09/13/22 09:26 09/13/22 09:26 09/13/22 09:26 Pain Score Most Recent Pain Score: Most Recent Pain Score Pain Level [Abdomen] 8 09/17/22 07:30 Pain Level 10 09/19/22 11:10 Assessment Mental Status: Awake (Alert & Oriented to Patient Baseline) Airway and Respiratory Function: Patent airway with normal (patient baseline) respiratory exam Cardiovascular Function: Hemodynamically Stable Hydration Status: Adequately Hydrated Nausea & Vomiting: No Nausea or Vomiting Pain: Pain is Moderate or Severe Postoperative Pain Management: Pain being add ressed with medication Peripheral Nerve Block: Patient did not receive a nerve block
--- NOTE | 2022-09-19 13:30 | NUR.NOTE ---
Nursing Note: TPN paused at 0900 when pt went down to OR; restarted at 1100 at decreased rate of 42.5ml/hr with lipids at 31ml/hr. Unable to document in MAR due to error in [place].
[2022-09-19 15:15] VITALS: BP 124/64; PULSE 86; RESP 14; TEMP 37; O2SAT 97
[2022-09-19] MEDS: buPROPion-XL 150 MG TABCR PO (16:08)
[2022-09-19] MEDS: oxyCODONE 10 MG TAB PO ×2 (16:08→20:49)
[2022-09-19] MEDS: oxyCODONE 10 MG TAB 5 MG PO (18:04)
[2022-09-19] MEDS: Gabapentin 300 MG CAP 600 MG PO (20:49)
[2022-09-19 23:25] VITALS: BP 111/71; PULSE 84; RESP 16; TEMP 36.9; O2SAT 95
[2022-09-20] MEDS: oxyCODONE 10 MG TAB 5 MG PO ×2 (02:08→08:05)
[2022-09-20] MEDS: Ketorolac 15 MG/ML VIAL IVP (05:52)
[2022-09-20 06:33] LABS: Abs Immature Grans 0.23 10^3/uL (0.0-0.06); Absolute Basophil Count 0.11 10^3/uL (0.0-0.2); Absolute Eosinophil Count 0.68 10^3/uL (0.0-0.7); Absolute Lymphocyte Count 2.05 10^3/uL (1.2-3.4); Absolute Neutrophil Count 5.86 10^3/uL (1.2-6.7); Basophils % 1.1; Eosinophils % 6.7; HCT 31.7 % (36.0-46.0); HGB 10.1 g/dL (11.2-15.7); Immature Grans % 2.3; Lymphocytes % 20.2; MCH 29.2 pg (27.0-33.0); MCHC 31.9 % (32.0-36.0); MCV 92 fL (80-95); MPV 10.6 fL (8.0-11.0); Monocytes % 11.8; Neutrophils % 57.9; Platelet Count 547 10^3/uL (130-400); RBC 3.46 10^6/uL (3.93-5.22); RDW 13.6 % (11.7-14.6); RDW-SD 45.4 fL; WBC 10.13 10^3/uL (4.4-10.8)
[2022-09-20 06:34] VITALS: BP 146/87; PULSE 94; RESP 22; TEMP 36.7; O2SAT 96
[2022-09-20 06:54] LABS: Anion Gap 8.8 mmol/L (3-11); BUN 16 mg/dL (7-18); CO2 26.2 mmol/L (21.0-32.0); CREATININE 0.8 mg/dL (0.55-1.02); Calcium 8.7 mg/dL (8.5-10.1); Chloride 109 mmol/L (98-107); Estimated GFR 82.74 (mL/min/1.73m2); Glucose 94 mg/dL (74-106); Magnesium 2.1 mg/dL (1.8-2.4); Potassium 3.9 mmol/L (3.5-5.1); Sodium 144 mmol/L (136-145)
[2022-09-20] MEDS: Methocarbamol 750 MG TAB PO ×4 (07:39→19:13)
[2022-09-20] MEDS: oxyCODONE 10 MG TAB PO ×4 (07:40→19:13)
[2022-09-20] MEDS: Pantoprazole 40 MG TABCR PO (07:40)
[2022-09-20] MEDS: Gabapentin 300 MG CAP PO ×2 (07:41→12:27)
[2022-09-20] MEDS: Budesonide/Formoterol 160/4.5 6 GM 60 PUFF INH IH ×2 (08:20→20:41)
--- NOTE | 2022-09-20 08:59 | W.PM.PROGNOT ---
Date of Service Date of service: 09/20/22 Time of Service: 09:00 Assessment and Plan Assessment and plan (1) Perforated diverticulum: Status: Acute Assessment and plan: Postop day #7 exploratory laparotomy colostomy creation -WOund is closed and PICOs in palce clinically is doing well.? However she does have high anxiety and poor coping skills.? She is not coping well with the new colostomy.? Staff will continue to work with her.? DC TPN and Accu-Cheks and glucose coverage.? Patient can go to regular diet.- -Adjusted pain medication for all oral.? She is back on her Wellbutrin.? We are going to need to wean her off of the Ativan.? Her home meds were restarted -DC Levaquin. -d/c TPN & insulin Encourage ambulation-and physical therapy Paperwork was filled out for ostomy supplies on 09/18 Anticipate discharge to home? Wednesday or Wednesday. Patient does not want to go to rehab. She will need home health RN and PT. we will see her back in clinic on Wednesday with Dr. Santoro (2) Diverticulosis: Status: Acute (3) Acute on chronic blood loss anemia: Status: Acute (4) Colostomy in place: Status: Chronic (5) GERD (gastroesophageal reflux disease): (6) COPD (chronic obstructive pulmonary disease): (7) ADHD: (8) Tobacco use: (9) Seasonal allergic reaction: (10) Restless leg syndrome: (11) Anxiety: Status: Chronic Subjective Subjective Interval history since last seen: Pt is doing well. no headaches. No CP or SOB. no productive cough. no dysuria. no leg pain or swelling. She has been up walking around. She tolerated oatmeal for breakfast. She has been able to burp her bag but she has not been able to change the appliance. She would like to go home she is not interested in going to rehab. She is able to walk in the hallways and get up and go to the bathroom. She is up making earrings today again Exam HENMT Other: Denies headache or sinus pain -Lungs are clear to auscultation bilaterally. Abdomen: PICOS is in place with minimal strike through. Ostomy is pink healthy and patent and productive. She complains of pain at incision site. LE: No pain or swelling Objective Last Vital Signs Temp 36.7 C 09/20/22 06:34 Pulse 94 H 09/20/22 06:34 Resp 22 09/20/22 06:34 BP 146/87 H 09/20/22 06:34 Pulse Ox 96 09/20/22 06:34 Laboratory Results - last 24 hr 09/20/22 09/20/22 06:00 06:00 WBC 10.13 RBC 3.46 L Hgb 10.1 L Hct 31.7 L MCV 92 MCH 29.2 MCHC 31.9 L RDW 13.6 Plt Count 547 H MPV 10.6 Immature Gran % 2.3 Neutrophils % 57.9 Lymphocytes % 20.2 Monocytes % 11.8 Eosinophils % 6.7 Basophils % 1.1 Nucleated RBC % 0.0 Absolute Neutrophils 5.86 Absolute Lymphocytes 2.05 Absolute Monocytes 1.20 H Absolute Eosinophils 0.68 Absolute Basophils 0.11 Sodium 144 Potassium 3.9 Chloride 109 H Carbon Dioxide 26.2 Anion Gap 8.8 BUN 16 Creatinine 0.8 Est GFR (CKD-EPI 2020) 82.74 Glucose 94 Calcium 8.7 Magnesium 2.1 Time Spent with Patient Time Spent with Patient: 25-34 minutes Time was spent: preparing to see the patient(eg.review tests), obtaining and/or reviewing separately otained hiistory, ordering medications,tests, procedures, referring, communicating with other health career portals teacher, indepentently interpreting results, counseling the patient and care coordination
[2022-09-20] MEDS: Ibuprofen 600 MG TAB PO ×2 (12:28→17:58)
[2022-09-20] MEDS: LORazepam 1 MG TAB PO ×2 (13:34→21:01)
[2022-09-20] MEDS: oxyCODONE 5 MG TAB PO (13:35)
[2022-09-20 15:15] VITALS: BP 134/77; PULSE 81; RESP 17; TEMP 37; O2SAT 97
[2022-09-20] MEDS: Gabapentin 300 MG CAP 600 MG PO (19:13)
[2022-09-20 23:00] VITALS: BP 135/75; PULSE 72; RESP 18; TEMP 36; O2SAT 95
[2022-09-21] MEDS: Ibuprofen 600 MG TAB PO ×3 (00:02→11:34)
[2022-09-21] MEDS: oxyCODONE 5 MG TAB PO ×2 (04:21→06:07)
[2022-09-21] MEDS: LORazepam 1 MG TAB PO ×2 (06:07→11:34)
[2022-09-21 06:29] VITALS: BP 139/81; PULSE 77; RESP 22; TEMP 36.2; O2SAT 97
[2022-09-21 07:20] VITALS: BP 130/73; PULSE 84; RESP 16; TEMP 36.2; O2SAT 95
[2022-09-21] MEDS: Umeclidinium 7 CAP INHALER IH (08:03)
[2022-09-21] MEDS: Budesonide/Formoterol 160/4.5 6 GM 60 PUFF INH IH (08:04)
[2022-09-21] MEDS: Pantoprazole 40 MG TABCR PO (08:26)
[2022-09-21] MEDS: oxyCODONE 10 MG TAB PO ×3 (08:27→15:55)
--- NOTE | 2022-09-21 08:31 | PT.INDS ---
PT Notes Visit Reasons: Perforated Diverticulitis Referring Doctor: FERMIN Cowan PT Orders: PT CONSULT: Extended stay weakness.? S/P exploratory laparotomy Precautions: Fall. Standard. Activity as tolerated. Patient Profile/Admitting Diagnosis:? Afsaneh is a 61-year-old female admitted to the ED on 09/09/2022 due to increasing abdominal pain.? She is diagnosed with ruptured diverticula with intra-abdominal abscesses and is status post exploratory laparotomy, sigmoid colon resection, and colostomy creation on postoperative day 8. Social History/Home Situation: Independent with all mobility ADLs prior to surgery without any assistive device.? Lives with daughter in a private home with 3 steps to enter.? 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 Equipment Owned/DME: None Subjective: C/o pain level 6/10 abdomen. Sometimes activity increases pain, sometimes it worsens it. Objective: General Observation: Sitting EOB independently eating breakfast, independently moving about room and toileting.? Surgical dressing seen in abdominal area. Mental Status: Alert and oriented as to person, place, time, and purpose. Able to pay attention, focus, and respond appropriately. Vital Signs: Stable per nursing notes ROM: Right Upper Extremity: ? Shoulder Flexion WFL. Shoulder abduction WFL. Elbow flexion WFL. Wrist flexion WFL. Functional opening and closing of hand WFL. Left Upper Extremity:? Shoulder Flexion WFL. Shoulder abduction WFL. Elbow flexion WFL. Wrist flexion WFL. Functional opening and closing of hand WFL. Right Lower Extremity: Hip flexion lacks the last 50% due to pain. Hip abduction WFL. Knee flexion WFL. Ankle dorsiflexion WFL. Ankle plantarflexion WFL. Left Lower Extremity: Hip flexion lacks the last 50% due to pain and anxiety of increased pain. Hip abduction WFL. Knee flexion WFL. Ankle dorsiflexion WFL. Ankle plantarflexion WFL. Strength: Grossly 4+/5 UE's newton. Grossly 4+/5 LD's, hip flex deferred to avoid irritation to abdomen. Bed Mobility/Transfers: Independent with all transfers, bed mobility, toileting, ambulation, and stair navigation x 3 steps with 1 rail. Ambulates 300 ft with distant supervision - demonstrates skill to do independently Gait: WNL, no AD Balance: Static Sitting: Normal Dynamic Sitting: Normal Static Standing: Normal Dynamic Standing: Normal Special Tests: Mobility Limitations Standardized Measure [facility] AM-PAC 6 clicks Basic Mobility Inpatient Short Form: 0% disability ? ? ? Assessment: Discharged from PT service due to lack of functional limitations, and demonstrating independence with all transfers, bed mobility, toileting, certainly tolerates household distance, and stairs to simulate her 1 step at home. She was encouraged to continue walking within the hospital halls, at least 4 x/day, to build her endurance for return home and improve conditioning. Communication with nursing to inform of her PT discharge, and the importance of encouraging her to walk. Goals: Goals X1 week 1. Supine-Sit independent met 2. Sit-Supine independent met 3. Sit-Stand independent met 4. Stand-Sit independent with FWW met, completes independent 5. Bed-Chair independent with FWWFWW met, completes independent 6. Chair-Bed independent with FWW, met, completes independent 7. Independent gait on level surface with use of FWW for at least 300 feet without report of pain nor dyspnea met completes independent 8. Independent stair negotiation while holding onto B rails for at least 3 steps without report of pain nor dyspnea met completes independent 9. Independent with home exercise program met 10. Good static and dynamic standing balance/tolerance met Plan of Care/Treatment Plan: Discharged, independent with ambulation exercise within hospital halls to improve activity tolerance with regard to pain. [] ? Home with no services [] [X] ? Home with services.? Patient will benefit from home health PT services in order to progress mobility level using least restrictive assistive ambulatory device, assess home safety, identify additional equipment needs, and establish a functional maintenance program that will increase ability of patient to remain at home. If she is able to drive, and get transportation - outpatient PT recommended. [] ? Home with outpatient PT [] [] ? SNF for continued rehabilitation [] [] ? [facility] [] [] ? SNF versus LTC based on ability to participate and progress [] No charge given lack of skilled care necessary for today's assessment, and primarily required only observation. 8:20-8:35a.m.
[2022-09-21] MEDS: buPROPion-XL 150 MG TABCR PO (09:16)
[2022-09-21] MEDS: Methocarbamol 750 MG TAB PO ×3 (09:16→15:55)
[2022-09-21] MEDS: Gabapentin 300 MG CAP PO ×2 (09:16→11:33)
--- NOTE | 2022-09-21 10:24 | PDOC.HHF2F ---
Home Health Referral Home Health Orders Clinical synopsis of why skilled professionals are needed: Medications Teaching and assistance with colostomy care Medical diagnosis necessitation home health referral: Perforated diverticula with abscess Registered Nurse: Check all that apply Instruct on new or changed medication(s)/assess compliance: Ordered Instruct on ostomy care: Ordered Assess for exacerbation of medical condition, instruct patient/caregivers on signs and symptoms to report for early detection: Ordered Assess wound for signs and symptoms of infection, instruct on wound care and/or provide skilled wound care consisting of: Ostomy care and dressing changes Physical Therapist: Check all that apply Increase strength & endurance for safe mobility at home: Ordered To design/establish home maintenance program: Ordered Fall reduction therapy program for patient with history of frequent falls: Ordered Home safety evaluation and teaching/gait training including stair management (if applicable): Ordered Home Bound Status Requires the aid of supportive device (check all that apply): Walker Use of Special Transportation (Describe transportation and medical necessity): pt cannot physicallycurrently which likely limits drive. Describe why leaving home would require a considerable and taxing effort: Side effects from pain medication (sedation/drowsiness), Requires frequent rest periods and Safety Concerns: describe (fall) Encounter Date and Reason: I certify that a FTF encounter for this patient was performed on September 21, 2022 and that such encounter was related to the primary reason the patient requires home health services. The encounter was conducted in the following manner: By me as the certifying physician, PLANT MAINTENANCE MANAGER, PA or By an inpatient physician, PLANT MAINTENANCE MANAGER or PA during an inpatient stay who communicated findings to me, Certification And Authentication I certify that I composed the above information based on my clinical judgment relating to this patient's medical condition and, if applicable, clinical findings communicated to me by the NPP or inpatient physician who performed the FTF encounter. Name of Provider that will be monitoring home health services: Sheryl Tanner
[2022-09-21] MEDS: Normal Saline Flush 10 ML SYR IVP (14:11)
--- NOTE | 2022-09-21 14:49 | W.NUTRFU ---
Date of service: 09/21/22 Time of Service: 14:49 Nutrition Note NOTE: Met with Afsaneh today. She reports she will not drink any protein shakes. Reviewed high protein meal choices and encouraged po intake to meet nutrient needs. Provided my contact information if needs assistance in once discharged. Time Spent in Nutritional Counseling and Treatment: 20
[2022-09-21 14:54] VITALS: BP 124/81; PULSE 82; RESP 18; TEMP 36.8; O2SAT 95
--- NOTE | 2022-09-21 15:35 | W.PM.PROGNOT ---
Date of Service Date of service: 09/21/22 Time of Service: 15:35 Assessment and Plan Assessment and plan (1) Perforated diverticulum: Status: Acute Assessment and plan: Postop day #8 exploratory Laparotomy colostomy creation -WOund is closed and PICOs in palce clinically is doing well.? However she does have high anxiety and poor coping skills.? She is not coping well with the new colostomy.? Staff will continue to work with her.? DC TPN and Accu-Cheks and glucose coverage.? Patient can go to regular diet.- -Adjusted pain medication for all oral.? She is back on her Wellbutrin.? We are going to need to wean her off of the Ativan.? Her home meds were restarted -DC Levaquin. -d/c TPN & insulin Encourage ambulation-and physical therapy Paperwork was filled out for ostomy supplies on 09/18 Discharge home today. Patient does not want to go to rehab. She will need home health RN and PT. we will see her back in clinic on with Margaret Lee (2) Diverticulosis: Status: Acute (3) Acute on chronic blood loss anemia: Status: Acute (4) Colostomy in place: Status: Chronic (5) GERD (gastroesophageal reflux disease): (6) COPD (chronic obstructive pulmonary disease): (7) ADHD: (8) Tobacco use: (9) Seasonal allergic reaction: (10) Restless leg syndrome: (11) Anxiety: Status: Chronic Subjective Subjective Interval history since last seen: Afsaneh is doing well. She has been up and doing her jewlery. She changed her bag herrself today. Still complains of some pain between the midline incision and her ostomy but it is controlled with her regular Oxycodon doses. Exam Const General: comfortable and no acute distress Orientation: alert and oriented x3 HENMT Head: normocephalic and atraumatic Resp Effort & Inspection: normal respiratory effort GI Inspection: incision (ALESSIO in place) Palpation: soft, no hepatosplenomegaly and nontender Auscultation: normal bowel sounds Other: Ostomy- pink. There is soft stool in the bag Objective Last Vital Signs Temp 98.2 F 09/21/22 14:54 Pulse 82 09/21/22 14:54 Resp 18 09/21/22 14:54 BP 124/81 09/21/22 14:54 Pulse Ox 95 09/21/22 14:54 Time Spent with Patient Time Spent with Patient: <25 minutes Time was spent: preparing to see the patient(eg.review tests), obtaining and/or reviewing separately otained hiistory, ordering medications,tests, procedures, counseling the patient and care coordination
--- NOTE | 2022-09-21 15:42 | DSE_ITS ---
Date of service: 09/21/22 Time of Service: 15:42 DS: Diagnosis Discharge Diagnosis (1) Perforated diverticulum: Status: Acute (2) Diverticulosis: Status: Acute (3) Acute on chronic blood loss anemia: Status: Acute (4) Colostomy in place: Status: Chronic (5) GERD (gastroesophageal reflux disease): (6) COPD (chronic obstructive pulmonary disease): (7) ADHD: (8) Tobacco use: (9) Seasonal allergic reaction: (10) Restless leg syndrome: (11) Anxiety: Status: Chronic Discharge Plan Disposition Patient Disposition: Home Condition: Improving Discharge Details Reason For Visit: Perforated Diverticulitis Admit Date/Time: 09/09/22 22:22 Admit Provider: Nell Santoro Attending Provider: Nell Santoro Primary Care Provider: Soraida Sims V Hospital Course Hospital Course: Ms Lowe was admitted on 09/09 for worsening abdominal pain. She had been discharged a few days earlier for ruptured diverticulitis with free air. She had first had a laparoscopic exploration with wash out. On this admission she was restarted on antibiotics. When she didnt feel better and her WBC continued to increase another CT scan was ordered which showed a large abscess and worsening free air. She was taken to the OR on 3 for exploratory Laparotomy and resection of sigmoid colon and creation of an end colostomy. Patient struggled with pain control and anxiety. She has been using lorazepam her in the hospital. POD #9 she is eating a regular diet, is ambulating, her pain is fairly well controlled and she is starting to deal with her ostomy. She is ready to be discharged to home with Home health. She will need nursing care for ostomy care help and PT for deconditioning. Home Meds and New Rx's Prescriptions: New bupropion HCl 150 mg Tablet Extended Release 24 Hr 150 mg PO DAILY Qty: 30 0RF gabapentin 300 mg Capsule 300 mg PO BID@0830,1200 Qty: 60 0RF gabapentin 300 mg Capsule 600 mg PO QPM Qty: 60 0RF lorazepam 1 mg Tablet 1 mg PO TID PRN (Reason: Agitation) Qty: 14 0RF methocarbamol 750 mg Tablet 750 mg PO QID Qty: 60 0RF oxycodone 5 mg Tablet 5 mg PO Q6H PRN PRNQty: 14 0RF pantoprazole 40 mg Tablet,Delayed Release (Dr/Ec) 40 mg PO DAILY@0730 Qty: 30 0RF Continued albuterol sulfate [ProAir HFA] 90 mcg/actuation HFA aerosol inhaler 2 puff IH Q4-5H PRN albuterol sulfate 2.5 mg /3 mL (0.083 %) solution for nebulization 2.5 mg IH Q4H PRN pramipexole [Mirapex] 0.125 mg tablet 0.125 mg PO DAILY Rx Instructions: Current med list: 1 Tab q afternoon, 2 tabs q HS fluticasone propionate [Flonase Allergy Relief] 50 mcg/actuation spray,suspension 1 spray CURTIS DAILY PRN Rx Instructions: 1 spray each side 2 times per day oxycodone 10 mg tablet 10 mg PO QID PRN docusate sodium [Colace] 100 mg capsule 100 mg PO PRN PRN aspirin 81 mg tablet,delayed release (DR/EC) 81 mg PO DAILY Adult 50 Plus Probiotic 4 billion cell capsule 10,000 mmu cells PO DAILY Rx Instructions: administer with a meal Incruse Ellipta 62.5 mcg/actuation blister with device 1 inh inhalation DAILY fluticasone propion-salmeterol [Advair Diskus] 250-50 mcg/dose blister with device 1 inh inhalation BID naloxone [Narcan] 4 mg/actuation spray,non-aerosol 4 mg intranasal Q2M PRN Rx Instructions: spray 1 dose into ONE nostril; alternate nostrils w each dose until help arrives methylphenidate HCl 10 mg tablet 10 mg PO BID ibuprofen [Ibuprofen IB] 200 MG tablet 200 mg PO QID PRN PRN Rx Instructions: 600 mg orally sucralfate [Carafate] 1 gram tablet 1 g PO QACHS Qty: 120 12RF dextromethorphan-guaifenesin 10-100 mg/5 mL Syrup 10 ml PO Q4H PRN PRNQty: 0 0RF prednisone 20 mg Tablet 40 mg PO DAILY Qty: 3 0RF Rx Instructions: First dose on 05/19/22 Inhaler, Assist Devices [Pocket Chamber] 1 ea miscellaneous DIRECTED Qty: 0 0RF omeprazole 40 mg capsule,delayed release(DR/EC) 20 mg PO DAILY Discontinued fluticasone propionate [Flonase Allergy Relief] 50 mcg/actuation spray,suspension 1 spray intranasal DAILY Rx Instructions: administer into each nostril gabapentin 100 mg capsule See Rx Instructions .ROUTE .COMPLEX Qty: 90 0RF Rx Instructions: 100mg tab in AM and at noon. 300mg each night. metronidazole 500 mg Tablet 500 mg PO TID Qty: 15 0RF levofloxacin 750 mg Tablet 750 mg PO QAM Qty: 5 0RF Discharge Instructions Instructions: Colostomy Care (DC) Additional Instructions: Activity at Home after surgery: 1. Make sure you walk 2-3 times a day at least 2. You should be able to climb a flight of stairs 3. No driving while in pain or taking pain medications 4. No strenuous activity or heavy lifting for 4 weeks (open surgery) Diet, Nutrition, & wound healin. Avoid alcohol until after you are recovered from your surgery 2. Make sure to eat plenty of lean protein (meat, fish, eggs, cottage cheese, beans) 3. Eat a variety of fruits and vegetables. Eat plenty of high fiber foods to avoid constipation. 4. Drink plenty of liquids to stay hydrated and avoid constipation Pain Medications: 1. Ibuprofen 600 mg every 6 hours as needed. 2. Take your Oxycodon as Rx. For Constipation: 1. Take Milk of Magnesia or MiraLax as needed for constipation Other: 1. You may shower daily. Do not scrub the incisions 2. Do not soak the incisions for 1 week 3. You may alternate ice and heat as needed for pain and swelling Wound Care: 1. Keep the incisions clean and dry Other Services that may have been ordered: 0 Home Health- to help with dressing changes 0 Outpatient physical therapy Please call our office if you develop: 1. Fevers >101.5 2. Nausea or Vomiting 3. Worsening pain 4. Redness and thick discharge from the wounds If after hours please call the Hospital at and ask to speak to the on-call surgeon Stand Alone Forms: Nursing Discharge Form Referrals: Soraida Sims MD [Primary Care Provider] - (1 week for hospital stay. Patient very anxious. Please assist with this) Margaret Cid PA [[employer]] - 09/24/22 1:00 pm [facility] [REPORT RECIPIENT] - Activity:: as above Equipment/Supplies:: No Equipment Needed Diet:: As Tolerated Discharge Orders Discharge Orders: Discharge Order (Routine); Ordered 09/21/22 Ordered By: Nell Santoro DS: Summary Time Spent with Patient providing and/or coordinating discharge services: Less than 30 minutes Status at Discharge Functional status at discharge: independent ambulation Overall status at discharge: patient is back to baseline Mental Status: mental status grossly normal Speech and Movement: speech and movement normal Mood: anxious mood Affect: normal affect Exam Psych Mental Status: mental status grossly normal Speech and Movement: speech and movement normal Mood: anxious mood Affect: normal affect DS: Data Vitals/I&O Vitals and I&O: Vital Signs Temperature 98.2 F 09/21/22 14:54 Temperature Source Tympanic 09/21/22 14:54 Pulse 82 09/21/22 14:54 Pulse Rhythm Regular 09/21/22 07:20 Pulse 94 H 09/17/22 10:01 Respiratory Rate 18 09/21/22 14:54 Respiratory Effort Normal 09/21/22 07:20 Respiratory Depth Normal 09/21/22 07:20 Respiratory Pattern Normal 09/21/22 07:20 Blood Pressure 124/81 09/21/22 14:54 Blood Pressure Mean 90 09/17/22 10:00 Blood Pressure Position Supine 09/17/22 08:05 Pulse Oximetry 95 09/21/22 14:54 Oxygen Delivery Method Room Air 09/21/22 14:54 Oxygen Flow Rate 0 09/21/22 14:54 Pain Level 4 09/21/22 14:54 Comment pt reports pain at abdominal incision 09/21/22 14:54 Intake & Output 09/20/22 09/21/22 09/21/22 23:59 11:59 23:59 Intake Total 240 / 808.083 250 / 250 Output Total 2200 / 3100 800 / 1200 400 / 1200 Balance -1960 / -2291.917 -550 / -950 -400 / -950 Weight 165 lb 12.602 oz Intake: Oral 240 / 240 250 / 250 Output: Urine 2000 / 2900 800 / 1200 400 / 1200 Stool 200 / 200 Other: Urine Color Yellow Yellow Yellow Urine Appearance Clear Clear Urine Odor Normal Voiding Methods Toilet Toilet [facility] All Active Problems Anxiety (Chronic) Colostomy in place (Chronic) Diverticulosis (Acute) Acute on chronic blood loss anemia (Acute) Perforated diverticulum (Acute) Cervicalgia (Acute) Tendonitis of long head of biceps brachii of right shoulder (Acute) Degenerative arthritis of cervical spine (Acute) Arthritis of left glenohumeral joint (Acute) HPV (human papilloma virus) infection (Acute) IBS (irritable bowel syndrome) (Chronic) Skin lesion (Acute) Low back pain (Acute) Lumbar radiculopathy (Acute) Abdominal pain (Acute) Abdominal bloating (Acute) Blood in stool (Acute) Hx of allergic reaction (Acute) Closed fracture of right distal fibula (Acute) Shoulder pain (Acute) Trigger finger of all digits of both hands (Acute) Arthritis of right glenohumeral joint (Acute) No-show for appointment (Acute) Spondylosis, cervical (Acute) Carpal tunnel syndrome, bilateral (Acute) Shoulder pain, bilateral (Acute) Effusion of left knee (Acute) Situational depression (Chronic) Myalgia (Acute) Generalized osteoarthritis of multiple sites (Acute) Patellar tendinitis (Acute) Sinusitis (Acute) Mild memory disturbance (Acute) Visit for screening mammogram (Acute) Frequency of urination (Acute) Dysuria (Acute) Ankle joint disorder (Acute) Hypoglycemia (Acute) Sinusitis, acute (Acute) Medical History ADHD Cervical spinal stenosis AGATHA III (cervical intraepithelial neoplasia III) Constipation, chronic COPD (chronic obstructive pulmonary disease) COVID Diaphoresis Duodenitis Dyspnea Edentulous Exposure to COVID-19 virus Gastritis GERD (gastroesophageal reflux disease) Grief reaction Hemangioma of liver Hematemesis History of paresthesia HPV (human papilloma virus) anogenital infection Hyperlipidemia Liver lesion Minimally displaced zone I fracture of sacrum, sequela Nocturnal hypoxia Pneumonia Reactive inflammatory arthritis Restless leg syndrome Seasonal allergic reaction Sleep apnea Supraclavicular lymphadenopathy Tendonitis Tobacco use Surgical History Arthroscopy, Shoulder History of colonoscopy (~07/05/18) History of esophagogastroduodenoscopy (EGD) (~09/2020) S/P colonoscopy S/P tonsillectomy Trigger Finger release several Family History Mother Personal history of malignant neoplasm uterine, mets to colon Social History Smoking/Tobacco Use Status: Former Tobacco Use Quit Date: 05/14/22 Smoking risk assessment performed?: Yes Alcohol Intake: never Drug use: Never Substance use type: does not use Current gender identity: female Do you feel safe at home: Yes Do you feel safe in your relationship?: Yes Additional Social history: Live with daughter Time Spent with Patient Time Spent with Patient: <45 minutes Time was spent: preparing to see the patient(eg.review tests), ordering medications,tests, procedures, referring, communicating with other health occasional caregiver, counseling the patient and care coordination
--- NOTE | 2022-09-21 16:43 | CMDISCH_ITS ---
- If Service Date Differs Date of service: 09/21/22 Time of Service: 16:44 LACE Index Scoring Tool - Questions: Length of Stay (in days): 7 - 13 Acuity (Admit via E.D.?): Yes Comorbidities: Chronic Pulmonary Disease, Liver or Renal Disease E.D. Visits: 3 - Answers: Total Score: 16 Risk of Readmission: High Risk Care Management Discharge Reason for Hospitalization: Perforated Diverticulitis Discharge Plan: Afsaneh returned home today with orders for new HH RN to assist her with her new ostomy, and coordinate supplies. She was sent home with a week's worth of ostomy supplies, as requested by [facility]. Her daughter will drive her home via private vehicle. She will follow up with her PCP, surgical services, and her discharge plan of care. Patient/Family Education Needs: Review discharge instructions and limitations, discussion of self care needs including ask me three. Services Needed at Discharge: Home Health Care Services (new HH RN)
== END 2022-09-21 17:55 | disposition home or self-care (01) | DRG 330 ==
LOC: ER 23:27 → MS 23:57 → ICU 09-12 19:56 → MS 09-17 11:22
PROVIDERS: Physical Therapy Assistant; Surgery; Admitting Provider Surgery; Emergency Provider Physician Assistant; PCP Family Medicine; Visit Provider Surgery
PROC: 0DTN0ZZ Resection of Sigmoid Colon, Open Approach (ICD-10-PCS; CPT 49000; principal; 2022-09-12 16:40)
PROC: 0WQFXZZ Repair Abdominal Wall, External Approach (ICD-10-PCS; CPT 13160; principal; 2022-09-19 09:00)
DX: K57.20 Diverticulitis of large intestine with perforation and abscess without bleeding (principal); J44.1 Chronic obstructive pulmonary disease with (acute) exacerbation; N39.0 Urinary tract infection, site not specified; K21.9 Gastro-esophageal reflux disease without esophagitis; E87.6 Hypokalemia; E78.5 Hyperlipidemia, unspecified; K00.0 Anodontia; F90.9 Attention-deficit hyperactivity disorder, unspecified type; J30.2 Other seasonal allergic rhinitis; M47.22 Other spondylosis with radiculopathy, cervical region; G25.81 Restless legs syndrome; F41.9 Anxiety disorder, unspecified; K29.70 Gastritis, unspecified, without bleeding; Z87.891 Personal history of nicotine dependence; K29.80 Duodenitis without bleeding; K58.9 Irritable bowel syndrome, unspecified; M54.16 Radiculopathy, lumbar region; A63.0 Anogenital (venereal) warts; D06.9 Carcinoma in situ of cervix, unspecified; D18.03 Hemangioma of intra-abdominal structures; D72.829 Elevated white blood cell count, unspecified; I95.81 Postprocedural hypotension; T88.59XA Other complications of anesthesia, initial encounter
CPT/HCPCS: 44143; 13160; 36410; 36415; 36591; 71045; 80048; 80053; 83690; 84145; 85027; 86850; 86900; 86901; 87040; 87635; 93005; 94640; 96361; 96365; 96375; 97110; 97162; 97530; 99285; J1650; 74177; 80202; 81003; 81015; 82728; 83605; 83735; 84100; 85025; 85610; 86140; 87070; 87075; 87086; 87205; 88307; 93010; 94664; 94760; 99283; J1100; J1170; J1885; J1956; J2060; J2250; J2310; J2405; J2704; J3480; J3490; Q9967

== ENCOUNTER 2022-10-12 04:40 | Outpatient (CLI) | payer MEDICAID, SELFPAY ==
[2022-10-12 13:59] LABS: Abs Immature Grans 0.04 10^3/uL (0.0-0.06); Absolute Basophil Count 0.05 10^3/uL (0.0-0.2); Absolute Eosinophil Count 0.65 10^3/uL (0.0-0.7); Absolute Lymphocyte Count 2.65 10^3/uL (1.2-3.4); Absolute Monocyte Count 1.02 10^3/uL (0.1-0.8); Absolute Neutrophil Count 5.27 10^3/uL (1.2-6.7); Basophils % 0.5; Eosinophils % 6.7; HCT 40.2 % (36.0-46.0); HGB 12.8 g/dL (11.2-15.7); Immature Grans % 0.4; Lymphocytes % 27.4; MCH 29.6 pg (27.0-33.0); MCHC 31.8 % (32.0-36.0); MCV 93 fL (80-95); Monocytes % 10.5; Neutrophils % 54.5; Platelet Count 345 10^3/uL (130-400); RBC 4.33 10^6/uL (3.93-5.22); RDW 13.1 % (11.7-14.6); RDW-SD 44.8 fL; WBC 9.68 10^3/uL (4.4-10.8)
[2022-10-12 14:24] LABS: Iron 70 ug/dL (50-170); Total Iron Binding Capacity 270 ug/dL (250-450); Transferrin Sat 26 % (15-50)
[2022-10-12 14:37] LABS: Ferritin 125 ng/mL (8-252); Folate 10.6 ng/mL (8.6-20.0); Vitamin B12 318 pg/mL (193-986)
[2022-10-12 14:48] LABS: C-Reactive Protein 0.17 mg/dL (0.0-0.3)
== END 2022-10-12 04:41 | disposition home or self-care (01) ==
PROVIDERS: PCP Family Medicine; Visit Provider Surgery
DX: D62 Acute posthemorrhagic anemia (principal); J44.9 Chronic obstructive pulmonary disease, unspecified; K57.20 Diverticulitis of large intestine with perforation and abscess without bleeding; K57.90 Diverticulosis of intestine, part unspecified, without perforation or abscess without bleeding; K59.09 Other constipation; Z51.89 Encounter for other specified aftercare; Z87.891 Personal history of nicotine dependence; Z93.3 Colostomy status; C50.919 Malignant neoplasm of unspecified site of unspecified female breast
CPT/HCPCS: 36415; 82607; 82728; 82746; 83540; 83550; 85025; 86140

== ENCOUNTER 2022-11-20 00:34 | Outpatient (CLI) | payer MEDICAID, SELFPAY ==
--- NOTE | 2022-11-20 07:30 | DI.CT_ITS ---
Exam(s) CT ABDOMEN PELVIS W EXAM: CT ABDOMEN PELVIS W CLINICAL HISTORY: preOp,eval for ostomy takedown,low abd pain,diverticulitis with perforation TECHNIQUE: Imaging Protocol: Axial computed tomography images with coronal and sagittal reformatted images were created and reviewed CONTRAST MATERIAL: Intravenous: Omnipaque 350 Contrast volume:100 mL Oral: No CT CT ABDOMEN PELVIS W from 09/12/2022 FINDINGS: ABDOMEN: Lung Bases: Normal where visualized. Liver: Normal density. Stable hepatic hemangiomas in the posterior segment of the right lobe of the l iver. No suspicious hepatic lesions are seen. Portal, Superior Mesenteric, and Splenic Veins: Unremarkable. Gallbladder and Biliary Tract: No radiodense calculus or dilation. Pancreas: Normal density, no abnormal calcifications or inflammatory process. Spleen: Normal. Adrenals: No masses seen. Kidneys: Normal size, contour and axis. No radiodense stones or obstructive uropathy. No masses seen. Abdominal Aorta: Abdominal portion non-dilated. Atherosclerosis. Bowel: Status post sigmoid resection. There is a left lower quadrant ostomy. No evidence of bowel o bstruction or bowel wall thickening. Appendix is unremarkable. Peritoneal Cavity: No ascites, collection or mesenteric inflammatory response. No free air. Lymph Nodes: Within normal limits. Bones: Within normal limits for the patient's age. Soft Tissues: Postsurgical changes in the anterior abdominal wall. PELVIS: Bladder: Symmetric distention, no gross wall thickening. Reproductive Organs: Unremarkable as visualized. Lymph Nodes: Within normal limits. Bones: Within normal limits for the patient's age. IMPRESSION: 1. No acute abdominal or pelvic process. 2. Status post sigmoid resection and left lower quadrant colostomy. 3. No pneumoperitoneum or abscess. RADIATION DOSE DELIVERED: 979.72mGy.cm Total DLP DATA REPOSITORY: All CT scans at this facility are submitted to the National Radiology Data Registry (NRDR) Dose Index Registry (DIR) with the [employer] (ACR). RADIATION OPTIMIZATION: All CT scans at this facility use at least one of these dose optimization te chniques: automated exposure control; mA and/or kV adjustment per patient size (includes targeted exa ms where dose is matched to clinical indication); or iterative reconstruction.
[2022-11-20] MEDS: Normal Saline - Diluent 50 ML VIAL IJ (12:34)
[2022-11-20] MEDS: Omnipaque 350 MG/ML 100 ML BTL IJ (12:34)
[2022-11-20] MEDS: Normal Saline Flush 10 ML SYR IVP (12:35)
== END 2022-11-20 00:54 ==
LOC: DI 00:34
PROVIDERS: PCP Family Medicine; Visit Provider Family Medicine
DX: J44.9 Chronic obstructive pulmonary disease, unspecified (principal); K21.9 Gastro-esophageal reflux disease without esophagitis; K57.20 Diverticulitis of large intestine with perforation and abscess without bleeding; M19.012 Primary osteoarthritis, left shoulder; M47.812 Spondylosis without myelopathy or radiculopathy, cervical region; Z93.3 Colostomy status
CPT/HCPCS: 74177; J3490

== ENCOUNTER 2022-12-01 08:32 | Day surgery (SDC) | payer MEDICAID, SELFPAY ==
--- NOTE | 2022-11-30 20:56 | PDOC.DSDIS_ITS ---
Date of service: 12/01/22 Time of Service: 11:04 Discharge Plan Disposition Patient Disposition: Home Discharge Details Reason For Visit: colonoscopy Attending Provider: Sheryl Tanner Primary Care Provider: Soraida Sims V Home Meds and New Rx's Prescriptions: Continued lubiprostone [Amitiza] 8 mcg capsule 8 mcg PO BID prednisone 20 mg tablet 40 mg PO DAILY PRN Rx Instructions: First dose on 05/19/22 albuterol sulfate [ProAir HFA] 90 mcg/actuation HFA aerosol inhaler 2 puff IH Q4-5H PRN albuterol sulfate 2.5 mg /3 mL (0.083 %) solution for nebulization 2.5 mg IH Q4H PRN pramipexole [Mirapex] 0.125 mg tablet 0.125 mg PO DAILY Rx Instructions: Current med list: 1 Tab q afternoon, 2 tabs q HS fluticasone propionate [Flonase Allergy Relief] 50 mcg/actuation spray,suspension 1 spray CURTIS DAILY PRN Rx Instructions: 1 spray each side 2 times per day oxycodone 10 mg tablet 10 mg PO QID PRN docusate sodium [Colace] 100 mg capsule 100 mg PO PRN PRN aspirin 81 mg tablet,delayed release (DR/EC) 81 mg PO DAILY Adult 50 Plus Probiotic 4 billion cell capsule 10,000 mmu cells PO DAILY Rx Instructions: administer with a meal Incruse Ellipta 62.5 mcg/actuation blister with device 1 inh inhalation DAILY fluticasone propion-salmeterol [Advair Diskus] 250-50 mcg/dose blister with device 1 inh inhalation BID naloxone [Narcan] 4 mg/actuation spray,non-aerosol 4 mg intranasal Q2M PRN Rx Instructions: spray 1 dose into ONE nostril; alternate nostrils w each dose until help arrives methylphenidate HCl 10 mg tablet 10 mg PO BID ibuprofen [Ibuprofen IB] 200 MG tablet 200 mg PO QID PRN PRN Rx Instructions: 600 mg orally sucralfate [Carafate] 1 gram tablet 1 g PO QACHS Qty: 120 12RF Inhaler, Assist Devices [Pocket Chamber] 1 ea miscellaneous DIRECTED Qty: 0 0RF omeprazole 40 mg capsule,delayed release(DR/EC) 20 mg PO DAILY gabapentin 300 mg Capsule 300 mg PO BID@0830,1200 Qty: 60 0RF gabapentin 300 mg Capsule 600 mg PO QPM Qty: 60 0RF lorazepam 1 mg Tablet 1 mg PO TID PRN (Reason: Agitation) Qty: 14 0RF methocarbamol 750 mg Tablet 750 mg PO QID Qty: 60 0RF oxycodone 5 mg Tablet 5 mg PO Q6H PRN PRNQty: 14 0RF pantoprazole 40 mg Tablet,Delayed Release (Dr/Ec) 40 mg PO DAILY@0730 Qty: 30 0RF Discontinued polyethylene glycol 3350 17 gram/dose powder 238 g PO ONCE Qty: 238 0RF Rx Instructions: take per colonoscopy instructions bisacodyl [Dulcolax (bisacodyl)] 5 mg tablet,delayed release (DR/EC) 5 mg PO ONCE Qty: 4 0RF Rx Instructions: take per colonoscopy instructions Discharge Instructions Additional Instructions: DSU Colonoscopy Post- Op Instructions Instructions for Everyone who is given Anesthesia: For your safety, please do the following for the next twenty-four (24) hours: *Do Not operate a motor vehicle (car, truck, motorcycle, etc.) *Do Not drink alcoholic beverages or use any recreational drugs for the first 24 hours or while taking pain medications. The medications in your body may have a reaction that can be dangerous. *Do Not make any important decisions or sign any important papers. Findings: normal Follow up: 12/21 2:30pm to schedule surgery Has to be off of steroids for two weeks prior to surgery 1. No lifting over 20 pounds or strenuous activity for the first 24 hours after your procedure. After 24 hours there are no restrictions on your activity but you may feel fatigued for a few days. 2. After you arrive home you may have a light meal and return to your normal diet as you can tolerate it without feeling sick to your stomach. 3. You may have a bloated, gaseous feeling in your belly (abdomen) after a colonoscopy. Passing gas and belching will help. Walking or lying down on your left side with your knees flexed may relieve the discomfort. Call the office at [phone] (Office) or [phone] (Hospital) right away if you notice any of the following: a.Vomiting of blood or ?coffee ground stools?. b.Rectal bleeding 1Tbsp, blood clots or continuous bleeding. c.Severe belly (abdominal) pain. d.A hard distended belly (abdomen) and an inability to pass gas. 4. Please don?t expect to have a normal BM (bowel movement) for 2-3 days after your procedure. 5. If there are questions regarding the findings of your procedure, please contact your doctor 6. If you are unable to contact your doctor with a problem, contact the hospital at [phone]. 7. Continue all your regular medications unless directed otherwise. I understand the above instructions and have no questions. Signature of Patient or Adult Escort Name of Responsible Adult Escort Signature of Nurse Date/Time Activity:: see above Diet:: see above Discharge Orders Discharge Orders: Discharge Order (Routine); Ordered 12/01/22 Ordered By: Sheryl Tanner DS: Diagnosis Discharge Diagnosis (1) Abscess of sigmoid colon due to diverticulitis: Status: Acute (2) COPD (chronic obstructive pulmonary disease): Status: Chronic (3) Anxiety: Status: Chronic (4) Colostomy in place: Status: Chronic Asessment and Plan: The patient is seen and examined after their colonoscopy.? The patient has been able to pass gas.? They are not having abdominal pain.? They have been able to tolerate liquids and a snack.? They do not have any nausea or vomiting.? They are not having any chest pain or shortness of breath.??? They are not having any rectal bleeding. Their vital signs have been stable-see nursing notes. We discussed findings during their colonoscopy, and any biopsies that were done/polyps that were removed. The patient will be sent a letter with any biopsy results, and when to repeat the colonoscopy.-see discharge instructions. Patient was given explicit instructions to follow-up regarding colonoscopy-refer to discharge instructions.? We reviewed resumption of medications. Patient verbalized understanding and discharged in stable and satisfactory condition- See nursing notes. pt is having CT scan today for preOp surgical planning for reconnection from diverting ostomy for acute diveritculitis w/abscess. F/u in 1-2 wks (5) IBS (irritable bowel syndrome): Status: Chronic (6) ADHD: (7) Sleep apnea: (8) Restless leg syndrome: (9) Seasonal allergic reaction: (10) Reactive inflammatory arthritis: (11) Tobacco use: (12) Hyperlipidemia: (13) Mild memory disturbance: Status: Acute
--- NOTE | 2022-11-30 21:08 | W.COLOREPORT ---
Date of service: 12/01/22 Time of Service: 11:03 Colonoscopy Report Date of procedure: 12/01/22 Pre-op diagnosis general: diverticulitis. s/p surgery and diverting ostomy Post-op diagnosis procedure note: same Surgeon: Sheryl Tanner Anesthesia Type: General:No Airway Pathology: other Complications: None Prep: Miralax/Dulcolax Procedure Description: After informed consent was obtained the patient was taken to the procedure room and placed in a left decubitous position. Monitors were applied and a time out was done. The patients name, date of , procedure, allergies to medications and metal in their body was reviewed. The patient was then sedated. Once sedated and comfortable a rectal exam was done. External exam was normal. Internal exam revealed a normal sphincter tone and no masses. The scope was then introduced and retrofelexed. No internal hemorrhoids were identified. The scope was then advanced to 30cm w/out difficulty. There are no residual diverticula on visualized today. There is no signs of any recurrent infection. The mucosa is pink and healthy. There is some residual stool that is removed. The scope was then withdrawn. There are 30 cm of rectum left. The scope was then introduced into her . and worked into the cecum. The prep was BBPS 2 in the transverse and right colon for a total of 6. There are no polyps or AVMs visualized. The mucosa is pink and healthy. There are no residual diverticula identified. She has 75 cm viable colon. The scope was then withdrawn. The ostomy bag was replaced. the patient was woken up and taken back to Same day surgery in stable condition. The patient tolerated the procedure well and there were no immediate complications. Follow up: F/u 12/21 14:30
[2022-12-01 08:34] VITALS: BP 115/95; PULSE 85; RESP 18; TEMP 36.3; O2SAT 95
[2022-12-01] MEDS: Lactated Ringers 1,000 ML 80 ML IV (09:03)
--- NOTE | 2022-12-01 09:31 | W.ANESPRE ---
General Info Date of Service Date Performed: 12/01/22 Height: 5 ft 1 in Weight: 75.1 kg Body Mass Index (BMI): 31.2 Surgical Procedure: Operation Date: 12/01/22 09:50 Proposed Procedure Side Surgeon p Colonoscopy Via Anus and Stoma, Possible Polypectomy Sheryl Tanner, DO Meds Allergies and Home Medications Allergies Allergy/AdvReac Type Severity Reaction Status Date / Time acetaminophen Allergy Severe Hives Verified 10/19/22 14:30 [From Mapap (acetaminophen)] bupropion Allergy Intermediate Other (See Unverified 11/30/22 14:00 Comment) cephalexin [Cephalexin] Allergy Intermediate Skin Rash Unverified 10/19/22 14:30 Penicillins Allergy Intermediate rash with Unverified 10/19/22 14:30 all cillins ampicillin Allergy Mild Skin Rash Unverified 10/19/22 14:30 atorvastatin Allergy Mild Other (See Unverified 11/30/22 14:00 Comment) cefprozil [From Cefzil] Allergy Mild Skin Rash Unverified 10/19/22 14:30 Cephalosporins Allergy Mild Hives Unverified 10/19/22 14:30 clindamycin Allergy Mild Skin Rash Unverified 10/19/22 14:30 doxycycline Allergy Mild Skin Rash Unverified 10/19/22 14:30 varenicline [From Chantix] Allergy Mild Other (See Unverified 11/30/22 14:00 Comment) amoxicillin Allergy Unknown Hives Unverified 10/19/22 14:30 cefuroxime [From Ceftin] Allergy Unverified 10/19/22 14:30 clarithromycin [From Biaxin] Allergy rash/hives Unverified 10/19/22 14:30 duloxetine [From Cymbalta] AdvReac Intermediate made me Unverified 10/19/22 14:30 feel very weird linaclotide [From Linzess] AdvReac Mild Diarrhea Unverified 10/19/22 14:30 nicotine [From Nicorette] AdvReac Mild Nauseaous Unverified 10/19/22 14:30 adhesive tape AdvReac Unknown Skin Rash Unverified 10/19/22 14:30 adhesive AdvReac Topical Unverified 10/19/22 14:30 Irritation banana AdvReac abd Unverified 10/19/22 14:30 bloating codeine AdvReac sick Unverified 10/19/22 14:30 hydrocodone [From Vicodin] AdvReac cold Verified 10/19/22 14:30 sweats, vomiting black hair dye Allergy Intermediate Hives Uncoded 10/19/22 14:30 eggs Allergy bloating Uncoded 10/19/22 14:30 Home Medication Medication Instructions Recorded ibuprofen 200 mg tablet (Ibuprofen 200 mg PO QID PRN PRN 09/18/15 IB) albuterol sulfate 2.5 mg/3 mL 2.5 mg inhalation Q4H PRN 06/26/19 (0.083 %) solution for nebulization albuterol sulfate 90 mcg/actuation 2 puff inhalation Q4-5H PRN 06/26/19 aerosol inhaler (ProAir HFA) pramipexole 0.125 mg tablet 0.125 mg PO DAILY 06/26/19 (Mirapex) fluticasone propionate 50 1 spray intranasal DAILY PRN 06/26/20 mcg/actuation nasal spray,suspension (Flonase Allergy Relief) oxycodone 10 mg tablet 10 mg PO QID PRN 08/28/20 sucralfate 1 gram tablet (Carafate) 1 g PO QACHS #120 tabs 09/27/20 aspirin 81 mg tablet,delayed 81 mg PO DAILY 05/12/22 release docusate sodium 100 mg capsule 100 mg PO PRN PRN 05/12/22 (Colace) fluticasone 250 mcg-salmeterol 50 1 inh inhalation BID 05/12/22 mcg/dose blistr powdr for inhalation (Advair Diskus) lactobacillus combination no.9 4 10,000 mmu cells PO DAILY 05/12/22 billion cell capsule (Adult 50 Plus Probiotic) umeclidinium 62.5 mcg/actuation 1 inh inhalation DAILY 05/12/22 blister powder for inhalation (Incruse Ellipta) Inhaler, Assist Devices [Pocket 1 ea miscellaneous DIRECTED ##0 05/18/22 Chamber] methylphenidate HCl 10 mg tablet 10 mg PO BID 06/18/22 naloxone 4 mg/actuation nasal 4 mg intranasal Q2M PRN 06/18/22 spray (Narcan) omeprazole 40 mg capsule,delayed 20 mg PO DAILY 09/09/22 release gabapentin 300 mg capsule 300 mg PO BID@0830,1200 #60 caps 09/21/22 gabapentin 300 mg capsule 600 mg PO QPM #60 caps 09/21/22 lorazepam 1 mg tablet 1 mg PO TID PRN Agitation #14 tabs 09/21/22 methocarbamol 750 mg tablet 750 mg PO QID #60 tabs 09/21/22 oxycodone 5 mg tablet 5 mg PO Q6H PRN PRN #14 tabs 09/21/22 pantoprazole 40 mg tablet,delayed 40 mg PO DAILY@0730 #30 tabs 09/21/22 release prednisone 20 mg tablet 40 mg PO DAILY PRN 09/28/22 lubiprostone 8 mcg capsule 8 mcg PO BID 10/20/22 (Amitiza) Current Visit Medications: Current Medications Generic Name Dose Route Start Last Admin Trade Name Freq PRN Reason Stop Dose Admin Hyoscyamine Sulfate 0.125 mg 12/01/22 08:53 Hyoscyamine 0.125 Mg Sl/Oral/Chew SL 12/31/22 08:52 DIRECTED PRN Ringer's Solution 1,000 mls @ 80 mls/hr 12/01/22 06:00 12/01/22 09:03 IV 12/30/22 23:59 80 mls/hr INFUSION KHANH Administration IV Miscellaneous Supplies 1 each 12/01/22 06:00 Iv Access IV 12/30/22 23:59 DIRECTED KHANH Ondansetron HCl 4 mg 12/01/22 08:53 Ondansetron 4 Mg/2 Ml Vial IVP 12/31/22 08:52 Q4H PRN PRN Nausea / Vomiting Sodium Chloride 0 ml 12/01/22 06:00 Normal Saline Flush 10 Ml Syr IV 12/30/22 23:59 PRN PRN Sodium Chloride 0 ml 12/01/22 06:00 Normal Saline 10 Ml Vial IJ 12/30/22 23:59 DIRECTED PRN Sterile Water 0 ml 12/01/22 06:00 Water,Injection,Sterile 10 Ml Vial IJ 12/30/22 23:59 DIRECTED PRN PFSH Active Problems Active Problems: Problem Status Onset Code Abscess of sigmoid colon due to diverticulitis K57.20 COPD (chronic obstructive pulmonary disease) J44.9 Anxiety F41.[address] Z93.3 Cervicalgia M54.2 Tendonitis of long head of biceps brachii of right shoulder M75.21 Degenerative arthritis of cervical spine M47.812 Arthritis of left glenohumeral joint M19.012 HPV (human papilloma virus) infection B97.7 IBS (irritable bowel syndrome) K58.9 Skin lesion L98.9 Low back pain M54.5 Lumbar radiculopathy M54.16 Abdominal pain R10.9 Abdominal bloating R14.0 Blood in stool K92.1 Hx of allergic reaction Z88.9 Closed fracture of right distal fibula S82.831A Shoulder pain M25.519 Trigger finger of all digits of both hands M65.321, M65.311, M65.312, M65.322, M65.331 Arthritis of right glenohumeral joint M19.011 No-show for appointment Z53.29 Spondylosis, cervical M47.812 Carpal tunnel syndrome, bilateral G56.03 Shoulder pain, bilateral M25.511, M25.512 Effusion of left knee M25.462 Situational depression Myalgia M79.10 Generalized osteoarthritis of multiple sites M15.9 Patellar tendinitis M76.50 Sinusitis J32.9 Mild memory disturbance R41.3 Visit for screening mammogram Z12.31 Frequency of urination R35.0 Dysuria R30.0 Ankle joint disorder M19.079 Hypoglycemia E16.2 Sinusitis, acute J01.90 Medical History Medical History ADHD Cervical spinal stenosis AGATHA III (cervical intraepithelial neoplasia III) Constipation, chronic COVID Diaphoresis Diverticulosis Duodenitis Dyspnea Edentulous Exposure to COVID-19 virus Gastritis GERD (gastroesophageal reflux disease) Grief reaction Hemangioma of liver Hematemesis History of paresthesia HPV (human papilloma virus) anogenital infection Hyperlipidemia Liver lesion Minimally displaced zone I fracture of sacrum, sequela Nocturnal hypoxia Personal history of nicotine dependence Pneumonia Reactive inflammatory arthritis Restless leg syndrome Seasonal allergic reaction Sleep apnea Supraclavicular lymphadenopathy Tendonitis Tobacco use Surgical History Surgical History Arthroscopy, Shoulder History of colonoscopy (~07/05/18) History of esophagogastroduodenoscopy (EGD) (~09/2020) S/P colonoscopy S/P exploratory laparotomy S/P tonsillectomy Trigger Finger release several Tobacco Smoking/Tobacco Use Status: Former Tobacco Use Alcohol Alcohol Intake: current Alcohol intake frequency: a few times a month Alcohol type: wine Substance Use Substance use: Never Substance use type: does not use Vital Signs and Lab Results Vital Signs Most Recent Vital Signs in EMR: Most Recent Vital Signs Temp Pulse Resp BP Pulse Ox 36.3 C L 85 18 115/95 H 95 12/01/22 08:34 12/01/22 08:34 12/01/22 08:34 12/01/22 08:34 12/01/22 08:34 Lab Results Blood Type / Crossmatch: No Data to Display Complete Blood Count: No Data to Display Complete Metabolic Panel: No Data to Display Liver Function Panel: No Data to Display Coagulation Panel: No Data to Display Cardiac Panel: No Data to Display Arterial Blood Gas: No Data to Display Venous Blood Gas: No Data to Display Pancreas Panel: No Data to Display Thyroid Panel: No Data to Display Infectious Disease: No Data to Display Blood Cultures: No Data to Display Toxicology Panel: No Data to Display Imaging and Studies Imaging and Studies Study information below may be from another EMR and interpreted by another provider. Please see original notes in EMR for more complete details. EKG Summary: DATE/TIME OF SERVICE: 05/15/221829 : 1960PERFORMING LOCATION: [facility] APPROVED REPORT Exam: Resting ECG Reason for Exam: dyspnea Patient Location: E HR:83 bpm ECG Measurements Heart Rate 83 AXIS MA 159 P 49 QRSd 91 QRS 61 QT 382 T59 QTc 448 Conclusion Sinus rhythm...normal P axis, V-rate 60- 99 Normal [place] Normal Electrocardiogram Pulmonary Function Summary: Date of service: 06/15/22 Time of Service: 13:00 Pulmonary Function Test Result Requesting Provider Soraida Sims Indications: COPD Interpretation Spirometry: There is moderate airflow limitation. There is a significant bronchodilator response. Lung Volumes: There is air trapping Diffusion Capacity: Normal diffusion Airway Pressure: Increased airways resistance Impression Moderate airflow obstruction with air trapping, a normal diffusion and a significant bronchodilator response. In the correct clinical context this may likely represent COPD (chronic bronchitis) or asthma-COPD overlap syndrome. Clinical Correlation therefore is recommended. Anesthesia Assessment and Plan Anesthesia History Personal History: No History of Anesthesia Complications Family History: No Family History of Anesthesia Complications Exercise Tolerance Exercise Tolerance: Metabolic Equivalents>4 Pertinent Negatives Pertinent Negatives: No Symptoms of GERD Cardiac & Pulmonary Exam Cardiac Exam: Normal S1/S2 Heart Sounds Pulmonary Exam: Clear Bilateral Breath Sounds Implantable Cardiac Device Does patient have a Pacemaker or an ICD?: No Airway Exam Known Difficult Airway: Yes Mallampati Class: 2 Mouth Opening: Normal (> 3cm) Thyromental Distance: Greater than 3 cm Neck Range of Motion: Full ROM Neck Circumference: Normal Teeth Condition: Removable Dentures/Plates Upper ASA Classification ASA Score: ASA 3 Emergency Case?: No NPO Status NPO Status: NPO Clears >2 hours, Solids >8 hours Anesthesia Plan Resuscitation Status: Full Code Anesthesia Technique: General Anesthesia Airway Planned: Natural Airway Monitors Used: Standard Monitors
[2022-12-01 09:32] VITALS: BMI 31.2
--- NOTE | 2022-12-01 10:08 | W.PM.HP.N ---
Date of service: 12/01/22 Time of Service: 10:08 Assessment and Plan Assessment and plan (1) Abscess of sigmoid colon due to diverticulitis: Status: Acute Assessment and plan: Patient had her CT on 11/20 this has been reviewed.. As well as recent lab work. Patient is here today for colonoscopy for reconnection of her GI tract. She did have diarrhea for diver and colostomy for perforated diverticulitis with abscess. Informed consent is obtained for the procedural (explained in simple layman's terms that the pt. and/or family could understand) explaining risks vs benefits and alternatives to the procedure and consequences if we do not do the procedure and need/rational for the procedure. Risks include but are not limited to: bleeding, infection, perforation of esophagus, stomach, colon, small intestines, bronchus or trachea, or PTX. This would necessitate emergency surgery to repair the damage w/ possible ostomy; and other associated complications w/ the required surgery. Also complications of anesthesia including aspiration, [place]/CVA/. (2) COPD (chronic obstructive pulmonary disease): Status: Chronic (3) Anxiety: Status: Chronic (4) Colostomy in place: Status: Chronic (5) ADHD: (6) Diverticulosis: (7) Gastritis: (8) GERD (gastroesophageal reflux disease): (9) Reactive inflammatory arthritis: (10) Restless leg syndrome: (11) Seasonal allergic reaction: (12) Sleep apnea: (13) Tobacco use: History of Present Illness Narrative: Today: Patient is here today for colonoscopy for evaluation for reconnection of GI tract.??? They completed a bowel prep with just a clear yellow residual effluent.? They not having any chest pain or shortness of breath, currently.? They are not experiencing any fever or chills.? They deny any productive cough or upper respiratory tract infection signs or symptoms.? They are not having abdominal pain, or nausea and vomiting.? They have not had any changes in medications, past medical history or past surgical history since previously being seen in the office. They have not had any accidents or have been in the ER since the clinic pre-operative evaluation. ??I reviewed the procedure with the patient today, including risks and benefits of the procedure, and what they could expect at home for recovery.? All questions are answered to the patient?s satisfaction today, and they are stable to proceed with the proposed procedure. clinic visiti 5/8/23 Informed consent is obtained for the procedural (explained in simple layman's terms that?the pt and/or family could understand) explaining risks vs benefits and alternatives to the procedure and consequences if we do not do the procedure and need/rational for the procedure. Risks include but are not limited to: bleeding, infection, perforation of colon.? This would necessitate emergency surgery to repair the damage w/ possible ostomy; and other associated complications w/ the required surgery. ? Also complications of anesthesia including aspiration, [place]/CVA/,? inability to complete the procedure. I discussed with the?patient would they could expect during the procedure, post procedure and recovery time and risks.? The patient understands that they need to have a ride home after the procedure.? The patient was given all this information in writing and expressed understanding. If there are any questions or concerns please feel free to contact our office.? Generally Colonoscopy does not require antibiotics prophylaxis, (2) Abscess of sigmoid colon due to diverticulitis: (3) COPD (chronic obstructive pulmonary disease): (4) Colostomy in place: (5) GERD (gastroesophageal reflux disease): (6) Restless leg syndrome: (7) Sleep apnea: (8) Reactive inflammatory arthritis: (9) Arthritis of left glenohumeral joint: (10) Degenerative arthritis of cervical spine: RN: Pt here for follow up on her colostomy, pt states she has good days and bad days .? Colostomy site looks good, incision to abdomen well healed, pt does note some discomfort occasionally.? Pt is doing well.? no headaches.? No CP or SOB.? no productive cough.? no dysuria.? no leg pain or swelling.? She is stopped smoking.? She only uses the prednisone as needed if her joints swell/severe joint pain.? She is out walking most days.? She is not having any chest pain or shortness of breath. She is able to change her bags and function with her ostomy.? She has not had any pain or drainage or bleeding from the rectum.? Her incision is clean dry and intact and well-healed At this point we do not have any restrictions on her as far as lifting.? Obviously do not go out and lift 100 pounds today, and slowly work into more strenuous activities.? She has a small 20 pound dog that she can lift. We will get her set up for a colonoscopy through the rectum as well as the stoma.? She should bring in a new colostomy bag because we will take her bag and flange off at the time of the procedure.? We will also set her up for a CT scan postprocedure. She had no problems with anesthesia post procedurally.? She has actually done well from surgery.? This document was created with voice activated software and may contain errrorrs. Review of Systems All systems reviewed & are unremarkable except as noted in HPI and below PFSH All Active Problems Abscess of sigmoid colon due to diverticulitis (Acute) COPD (chronic obstructive pulmonary disease) (Chronic) Anxiety (Chronic) Colostomy in place (Chronic) Cervicalgia (Acute) Tendonitis of long head of biceps brachii of right shoulder (Acute) Degenerative arthritis of cervical spine (Acute) Arthritis of left glenohumeral joint (Acute) HPV (human papilloma virus) infection (Acute) IBS (irritable bowel syndrome) (Chronic) Skin lesion (Acute) Low back pain (Acute) Lumbar radiculopathy (Acute) Abdominal pain (Acute) Abdominal bloating (Acute) Blood in stool (Acute) Hx of allergic reaction (Acute) Closed fracture of right distal fibula (Acute) Shoulder pain (Acute) Trigger finger of all digits of both hands (Acute) Arthritis of right glenohumeral joint (Acute) No-show for appointment (Acute) Spondylosis, cervical (Acute) Carpal tunnel syndrome, bilateral (Acute) Shoulder pain, bilateral (Acute) Effusion of left knee (Acute) Situational depression (Chronic) Myalgia (Acute) Generalized osteoarthritis of multiple sites (Acute) Patellar tendinitis (Acute) Sinusitis (Acute) Mild memory disturbance (Acute) Visit for screening mammogram (Acute) Frequency of urination (Acute) Dysuria (Acute) Ankle joint disorder (Acute) Hypoglycemia (Acute) Sinusitis, acute (Acute) Medical History ADHD Cervical spinal stenosis AGATHA III (cervical intraepithelial neoplasia III) Constipation, chronic COVID Diaphoresis Diverticulosis Duodenitis Dyspnea Edentulous Exposure to COVID-19 virus Gastritis GERD (gastroesophageal reflux disease) Grief reaction Hemangioma of liver Hematemesis History of paresthesia HPV (human papilloma virus) anogenital infection Hyperlipidemia Liver lesion Minimally displaced zone I fracture of sacrum, sequela Nocturnal hypoxia Personal history of nicotine dependence Pneumonia Reactive inflammatory arthritis Restless leg syndrome Seasonal allergic reaction Sleep apnea Supraclavicular lymphadenopathy Tendonitis Tobacco use Surgical History Arthroscopy, Shoulder History of colonoscopy (~07/05/18) History of esophagogastroduodenoscopy (EGD) (~09/2020) S/P colonoscopy S/P exploratory laparotomy S/P tonsillectomy Trigger Finger release several Family History Mother Personal history of malignant neoplasm uterine, mets to colon Social History Smoking/Tobacco Use Status: Former Tobacco Use Quit Date: 05/14/22 Smoking risk assessment performed?: Yes Alcohol Intake: current Alcohol Intake frequency: a few times a month Alcohol type: wine Drug use: Never Substance use type: does not use Current gender identity: female Do you feel safe at home: Yes Do you feel safe in your relationship?: Yes Additional Social history: Live with daughter Meds Allergies and Home Medications Allergies Allergy/AdvReac Type Severity Reaction Status Date / Time acetaminophen Allergy Severe Hives Verified 10/19/22 14:30 [From Mapap (acetaminophen)] bupropion Allergy Intermediate Other (See Unverified 11/30/22 14:00 Comment) cephalexin [Cephalexin] Allergy Intermediate Skin Rash Unverified 10/19/22 14:30 Penicillins Allergy Intermediate rash with Unverified 10/19/22 14:30 all cillins ampicillin Allergy Mild Skin Rash Unverified 10/19/22 14:30 atorvastatin Allergy Mild Other (See Unverified 11/30/22 14:00 Comment) cefprozil [From Cefzil] Allergy Mild Skin Rash Unverified 10/19/22 14:30 Cephalosporins Allergy Mild Hives Unverified 10/19/22 14:30 clindamycin Allergy Mild Skin Rash Unverified 10/19/22 14:30 doxycycline Allergy Mild Skin Rash Unverified 10/19/22 14:30 varenicline [From Chantix] Allergy Mild Other (See Unverified 11/30/22 14:00 Comment) amoxicillin Allergy Unknown Hives Unverified 10/19/22 14:30 cefuroxime [From Ceftin] Allergy Unverified 10/19/22 14:30 clarithromycin [From Biaxin] Allergy rash/hives Unverified 10/19/22 14:30 duloxetine [From Cymbalta] AdvReac Intermediate made me Unverified 10/19/22 14:30 feel very weird linaclotide [From Linzess] AdvReac Mild Diarrhea Unverified 10/19/22 14:30 nicotine [From Nicorette] AdvReac Mild Nauseaous Unverified 10/19/22 14:30 adhesive tape AdvReac Unknown Skin Rash Unverified 10/19/22 14:30 adhesive AdvReac Topical Unverified 10/19/22 14:30 Irritation banana AdvReac abd Unverified 10/19/22 14:30 bloating codeine AdvReac sick Unverified 10/19/22 14:30 hydrocodone [From Vicodin] AdvReac cold Verified 10/19/22 14:30 sweats, vomiting black hair dye Allergy Intermediate Hives Uncoded 10/19/22 14:30 eggs Allergy bloating Uncoded 10/19/22 14:30 Home Medications Medication Instructions Recorded Confirmed Type ibuprofen 200 mg tablet (Ibuprofen 200 mg PO QID PRN PRN 09/18/15 11/30/22 History IB) albuterol sulfate 2.5 mg/3 mL 2.5 mg inhalation Q4H PRN 06/26/19 11/30/22 History (0.083 %) solution for nebulization albuterol sulfate 90 mcg/actuation 2 puff inhalation Q4-5H PRN 06/26/19 11/30/22 History aerosol inhaler (ProAir HFA) pramipexole 0.125 mg tablet 0.125 mg PO DAILY 06/26/19 11/30/22 History (Mirapex) fluticasone propionate 50 1 spray intranasal DAILY PRN 06/26/20 11/30/22 History mcg/actuation nasal spray,suspension (Flonase Allergy Relief) oxycodone 10 mg tablet 10 mg PO QID PRN 08/28/20 12/01/22 History sucralfate 1 gram tablet (Carafate) 1 g PO QACHS #120 tabs 09/27/20 11/30/22 Rx aspirin 81 mg tablet,delayed 81 mg PO DAILY 05/12/22 11/30/22 History release docusate sodium 100 mg capsule 100 mg PO PRN PRN 05/12/22 11/30/22 History (Colace) fluticasone 250 mcg-salmeterol 50 1 inh inhalation BID 05/12/22 11/30/22 History mcg/dose blistr powdr for inhalation (Advair Diskus) lactobacillus combination no.9 4 10,000 mmu cells PO DAILY 05/12/22 11/30/22 History billion cell capsule (Adult 50 Plus Probiotic) umeclidinium 62.5 mcg/actuation 1 inh inhalation DAILY 05/12/22 12/01/22 History blister powder for inhalation (Incruse Ellipta) Inhaler, Assist Devices [Pocket 1 ea miscellaneous DIRECTED ##0 05/18/22 11/30/22 Rx Chamber] methylphenidate HCl 10 mg tablet 10 mg PO BID 06/18/22 11/30/22 History naloxone 4 mg/actuation nasal 4 mg intranasal Q2M PRN 06/18/22 11/30/22 History spray (Narcan) omeprazole 40 mg capsule,delayed 20 mg PO DAILY 09/09/22 11/30/22 History release gabapentin 300 mg capsule 300 mg PO BID@0830,1200 #60 caps 09/21/22 11/30/22 Rx gabapentin 300 mg capsule 600 mg PO QPM #60 caps 09/21/22 12/01/22 Rx lorazepam 1 mg tablet 1 mg PO TID PRN Agitation #14 tabs 09/21/22 11/30/22 Rx methocarbamol 750 mg tablet 750 mg PO QID #60 tabs 09/21/22 11/30/22 Rx oxycodone 5 mg tablet 5 mg PO Q6H PRN PRN #14 tabs 09/21/22 11/30/22 Rx pantoprazole 40 mg tablet,delayed 40 mg PO DAILY@0730 #30 tabs 09/21/22 11/30/22 Rx release prednisone 20 mg tablet 40 mg PO DAILY PRN 09/28/22 11/30/22 History lubiprostone 8 mcg capsule 8 mcg PO BID 10/20/22 11/30/22 History (Amitiza) Exam Const Other: PHYSICAL EXAM GENERAL APPEARANCE: Alert, healthy appearance, oriented, x 3,? in no acute distress HYDRATION: Well hydrated HEAD, EYES, EARS, NECK, THROAT: Head is normocephalic, pupils equal, round, reactive to light and accommodation, ocular movement intact, sclera clear and no jaundice. ?Dentition- none LUNGS: normal respiration/normal chest excursion. ?Clear to auscultation bilaterally. ?No wheeze. ?HEART: Regular rate and rhythm. no murmurs EXTREMITY: chonic vensous statsis. chonic pain in all joints, tamar neckand b/l shoulders. ABDOMEN: soft and non-tender to palpation.? Normal bowel sounds.? stoma pink/patenet. ? Results Last Vital Signs Temp 36.3 C L 12/01/22 08:34 Pulse 85 12/01/22 08:34 Resp 18 12/01/22 08:34 BP 115/95 H 12/01/22 08:34 Pulse Ox 95 12/01/22 08:34 Time Spent Time spent with Patient: 40-54 minutes Time was spent: preparing to see the patient(eg.review tests), obtaining and/or reviewing separately otained hiistory, ordering medications,tests, procedures, referring, communicating with other health residential care facility manager, indepentently interpreting results, counseling the patient and care coordination
[2022-12-01 10:59] VITALS: BP 116/73; PULSE 89; RESP 16; TEMP 36.5; O2SAT 98
--- NOTE | 2022-12-01 11:02 | W.ANESPOSTOP ---
Postoperative Evaluation Date, Time and Location Date Performed: 12/01/22 Time Performed: 11:03 Patient Location: Day Surgery Unit Vital Signs Most Recent Imported Vital Signs: Most Recent Vital Signs Temp Pulse Resp BP Pulse Ox 36.3 C L 85 18 115/95 H 95 12/01/22 08:34 12/01/22 08:34 12/01/22 08:34 12/01/22 08:34 12/01/22 08:34 Pain Score Most Recent Pain Score: Most Recent Pain Score Pain Level 4 12/01/22 08:34 Assessment Mental Status: Arousable with meaningful communication Airway and Respiratory Function: Patent airway with normal (patient baseline) respiratory exam Cardiovascular Function: Hemodynamically Stable Hydration Status: Adequately Hydrated Nausea & Vomiting: No Nausea or Vomiting Pain: Pt. Denies Any Pain Peripheral Nerve Block: Patient did not receive a nerve block
[2022-12-01 11:29] VITALS: BP 124/82; PULSE 83; RESP 18; TEMP 36.6; O2SAT 98
== END 2022-12-01 11:38 | disposition home or self-care (01) ==
PROVIDERS: PCP Family Medicine; Visit Provider Surgery
PROC: 0DJD8ZZ Inspection of Lower Intestinal Tract, Via Natural or Artificial Opening Endoscopic (ICD-10-PCS; CPT 45378; principal; 2022-12-01 09:45)
DX: Z09 Encounter for follow-up examination after completed treatment for conditions other than malignant neoplasm (principal); Z87.19 Personal history of other diseases of the digestive system; Z93.3 Colostomy status
CPT/HCPCS: 45378; J2001

== ENCOUNTER 2023-01-05 11:12 | Inpatient (IN) | payer MEDICAID, SELFPAY ==
[2023-01-05] VITALS (36 sets, daily range): BP systolic 73–131; BP diastolic 46–77; PULSE 66–102; RESP 10–18; TEMP 36–37.6; O2SAT 92–98; BMI 32.3
[2023-01-05] MEDS: Gabapentin 300 MG CAP 600 MG PO (06:19)
[2023-01-05] MEDS: Lactated Ringers 1,000 ML 80 ML IV (06:35)
--- NOTE | 2023-01-05 06:43 | W.ANESPRE ---
General Info Date of Service Date Performed: 01/05/23 Height: 5 ft 1 in Weight: 77.8 kg Body Mass Index (BMI): 32.3 Surgical Procedure: Operation Date: 01/05/23 07:50 Proposed Procedure Side Surgeon p Colostomy Opening,Take Down Sheryl Tanner, DO Meds Allergies and Home Medications Allergies Allergy/AdvReac Type Severity Reaction Status Date / Time acetaminophen Allergy Severe Hives Verified 01/05/23 06:36 [From Mapap (acetaminophen)] bupropion Allergy Intermediate Other (See Verified 01/05/23 06:36 Comment) cephalexin [Cephalexin] Allergy Intermediate Skin Rash Verified 01/05/23 06:36 Penicillins Allergy Intermediate rash with Verified 01/05/23 06:36 all cillins ampicillin Allergy Mild Skin Rash Verified 01/05/23 06:36 atorvastatin Allergy Mild Other (See Verified 01/05/23 06:36 Comment) cefprozil [From Cefzil] Allergy Mild Skin Rash Verified 01/05/23 06:36 Cephalosporins Allergy Mild Hives Verified 01/05/23 06:36 clindamycin Allergy Mild Skin Rash Verified 01/05/23 06:36 doxycycline Allergy Mild Skin Rash Verified 01/05/23 06:36 varenicline [From Chantix] Allergy Mild Other (See Verified 01/05/23 06:36 Comment) amoxicillin Allergy Unknown Hives Verified 01/05/23 06:36 cefuroxime [From Ceftin] Allergy Verified 01/05/23 06:36 clarithromycin [From Biaxin] Allergy rash/hives Verified 01/05/23 06:36 duloxetine [From Cymbalta] AdvReac Intermediate made me Verified 01/05/23 06:36 feel very weird linaclotide [From Linzess] AdvReac Mild Diarrhea Verified 01/05/23 06:36 nicotine [From Nicorette] AdvReac Mild Nauseaous Verified 01/05/23 06:36 adhesive tape AdvReac Unknown Skin Rash Verified 01/05/23 06:36 adhesive AdvReac Topical Verified 01/05/23 06:36 Irritation banana AdvReac abd Verified 01/05/23 06:36 bloating codeine AdvReac sick Verified 01/05/23 06:36 hydrocodone [From Vicodin] AdvReac cold Verified 01/05/23 06:36 sweats, vomiting black hair dye Allergy Intermediate Hives Uncoded 01/04/23 11:38 eggs Allergy bloating Uncoded 01/04/23 11:38 stoma adhesive AdvReac Severe bleeding Uncoded 01/04/23 11:38 rash Home Medication Medication Instructions Recorded ibuprofen 200 mg tablet (Ibuprofen 200 mg PO QID PRN PRN 09/18/15 IB) albuterol sulfate 2.5 mg/3 mL 2.5 mg inhalation Q4H PRN 06/26/19 (0.083 %) solution for nebulization albuterol sulfate 90 mcg/actuation 2 puff inhalation Q4-5H PRN 06/26/19 aerosol inhaler (ProAir HFA) pramipexole 0.125 mg tablet 0.125 mg PO DAILY 06/26/19 (Mirapex) fluticasone propionate 50 1 spray intranasal DAILY PRN 06/26/20 mcg/actuation nasal spray,suspension (Flonase Allergy Relief) oxycodone 10 mg tablet 10 mg PO QID PRN 08/28/20 aspirin 81 mg tablet,delayed 81 mg PO DAILY 05/12/22 release docusate sodium 100 mg capsule 100 mg PO PRN PRN 05/12/22 (Colace) fluticasone 250 mcg-salmeterol 50 1 inh inhalation BID 05/12/22 mcg/dose blistr powdr for inhalation (Advair Diskus) lactobacillus combination no.9 4 10,000 mmu cells PO DAILY 05/12/22 billion cell capsule (Adult 50 Plus Probiotic) umeclidinium 62.5 mcg/actuation 1 inh inhalation DAILY 05/12/22 blister powder for inhalation (Incruse Ellipta) Inhaler, Assist Devices [Pocket 1 ea miscellaneous DIRECTED ##0 05/18/22 Chamber] methylphenidate HCl 10 mg tablet 10 mg PO BID 06/18/22 naloxone 4 mg/actuation nasal 4 mg intranasal Q2M PRN 06/18/22 spray (Narcan) omeprazole 40 mg capsule,delayed 20 mg PO DAILY 09/09/22 release gabapentin 300 mg capsule 300 mg PO BID@0830,1200 #60 caps 09/21/22 lorazepam 1 mg tablet 1 mg PO TID PRN Agitation #14 tabs 09/21/22 methocarbamol 750 mg tablet 750 mg PO QID #60 tabs 09/21/22 prednisone 20 mg tablet 40 mg PO DAILY PRN 09/28/22 lubiprostone 8 mcg capsule 8 mcg PO BID 10/20/22 (Amitiza) metronidazole 500 mg tablet 500 mg PO DIRECTED #3 tabs 12/21/22 neomycin 500 mg tablet 1 g PO DIRECTED #6 tabs 12/21/22 bisacodyl 5 mg tablet,delayed 5 mg PO ONCE colonscopy bowel prep 12/22/22 release (Dulcolax (bisacodyl)) #8 tabs polyethylene glycol 3350 17 238 g PO ONCE colonoscopy prep 12/22/22 gram/dose oral powder #238 grams ondansetron HCl 8 mg tablet 8 mg PO Q12H #3 tabs 01/04/23 simethicone 80 mg chewable tablet 80 mg PO DIRECTED 01/04/23 Current Visit Medications: Current Medications Generic Name Dose Route Start Last Admin Trade Name Freq PRN Reason Stop Dose Admin Alvimopan 12 mg 01/05/23 06:00 01/05/23 06:19 Alvimopan 12 Mg Cap PO 01/05/23 16:00 12 mg PREOP KHANH Administration Gabapentin 600 mg 01/05/23 06:00 01/05/23 06:19 Gabapentin 300 Mg Cap PO 01/05/23 16:00 600 mg PREOP KHANH Administration Ringer's Solution 1,000 mls @ 80 mls/hr 01/05/23 06:00 01/05/23 06:35 IV 02/03/23 23:59 80 mls/hr INFUSION KHANH Administration Ertapenem/Sodium Chloride 1 gm 50 mls @ 100 mls/hr 01/05/23 06:00 / Sodium Chloride IVPB 01/05/23 16:00 PREOP KHANH IV Miscellaneous Supplies 1 each 01/05/23 06:00 Iv Access IV 02/03/23 23:59 DIRECTED KHANH Sodium Chloride 0 ml 01/05/23 06:00 Normal Saline Flush 10 Ml Syr IV 02/03/23 23:59 PRN PRN Sodium Chloride 0 ml 01/05/23 06:00 Normal Saline 10 Ml Vial IJ 02/03/23 23:59 DIRECTED PRN Sterile Water 0 ml 01/05/23 06:00 Water,Injection,Sterile 10 Ml Vial IJ 02/03/23 23:59 DIRECTED PRN PFSH Active Problems Active Problems: Problem Status Onset Code Chronic narcotic dependence F11.20 Former smoker Z87.891 Abscess of sigmoid colon due to diverticulitis K57.20 COPD (chronic obstructive pulmonary disease) J44.9 Anxiety F41.[address] Z93.3 Cervicalgia M54.2 Tendonitis of long head of biceps brachii of right shoulder M75.21 Degenerative arthritis of cervical spine M47.812 Arthritis of left glenohumeral joint M19.012 HPV (human papilloma virus) infection B97.7 IBS (irritable bowel syndrome) K58.9 Skin lesion L98.9 Low back pain M54.5 Lumbar radiculopathy M54.16 Abdominal pain R10.9 Abdominal bloating R14.0 Blood in stool K92.1 Hx of allergic reaction Z88.9 Closed fracture of right distal fibula S82.831A Shoulder pain M25.519 Trigger finger of all digits of both hands M65.321, M65.311, M65.312, M65.322, M65.331 Arthritis of right glenohumeral joint M19.011 Spondylosis, cervical M47.812 Carpal tunnel syndrome, bilateral G56.03 Shoulder pain, bilateral M25.511, M25.512 Effusion of left knee M25.462 Situational depression Myalgia M79.10 Generalized osteoarthritis of multiple sites M15.9 Patellar tendinitis M76.50 Sinusitis J32.9 Mild memory disturbance R41.3 Visit for screening mammogram Z12.31 Frequency of urination R35.0 Dysuria R30.0 Ankle joint disorder M19.079 Hypoglycemia E16.2 Sinusitis, acute J01.90 Medical History Medical History ADHD Cervical spinal stenosis AGATHA III (cervical intraepithelial neoplasia III) Constipation, chronic COVID Diaphoresis Diverticulosis Duodenitis Dyspnea Edentulous Exposure to COVID-19 virus Gastritis GERD (gastroesophageal reflux disease) Grief reaction Hemangioma of liver Hematemesis History of paresthesia HPV (human papilloma virus) anogenital infection Hyperlipidemia Liver lesion Minimally displaced zone I fracture of sacrum, sequela Nocturnal hypoxia Personal history of nicotine dependence Pneumonia Reactive inflammatory arthritis Seasonal allergic reaction Sleep apnea Supraclavicular lymphadenopathy Tendonitis Tobacco use Surgical History Surgical History Arthroscopy, Shoulder History of colonoscopy (~11/2022) 11/2022, 07/05/2018 History of esophagogastroduodenoscopy (EGD) (~09/2020) S/P colonoscopy S/P exploratory laparotomy S/P tonsillectomy Trigger Finger release several Tobacco Smoking/Tobacco Use Status: Former Tobacco Use Alcohol Alcohol Intake: current Alcohol intake frequency: a few times a month Alcohol type: wine Substance Use Substance use: Never Substance use type: does not use Vital Signs and Lab Results Vital Signs Most Recent Vital Signs in EMR: Most Recent Vital Signs Temp Pulse Resp BP Pulse Ox 36.2 C L 84 16 107/70 92 01/05/23 06:21 01/05/23 06:21 01/05/23 06:21 01/05/23 06:21 01/05/23 06:21 Lab Results Blood Type / Crossmatch: No Data to Display Complete Blood Count: No Data to Display Complete Metabolic Panel: No Data to Display Liver Function Panel: No Data to Display Coagulation Panel: No Data to Display Cardiac Panel: No Data to Display Arterial Blood Gas: No Data to Display Venous Blood Gas: No Data to Display Pancreas Panel: No Data to Display Thyroid Panel: No Data to Display Infectious Disease: No Data to Display Blood Cultures: No Data to Display Toxicology Panel: No Data to Display Imaging and Studies Imaging and Studies Study information below may be from another EMR and interpreted by another provider. Please see original notes in EMR for more complete details. EKG Summary: DATE/TIME OF SERVICE: 05/15/221829 : 1960PERFORMING LOCATION: OR APPROVED REPORT Exam: Resting ECG Reason for Exam: dyspnea Patient Location: E HR:83 bpm ECG Measurements Heart Rate 83 AXIS IL 159 P 49 QRSd 91 QRS 61 QT 382 T59 QTc 448 Conclusion Sinus rhythm...normal P axis, V-rate 60- 99 Normal [place] Normal Electrocardiogram Pulmonary Function Summary: Date of service: 06/15/22 Time of Service: 13:00 Pulmonary Function Test Result Requesting Provider Soraida Sims Indications: COPD Interpretation Spirometry: There is moderate airflow limitation. There is a significant bronchodilator response. Lung Volumes: There is air trapping Diffusion Capacity: Normal diffusion Airway Pressure: Increased airways resistance Impression Moderate airflow obstruction with air trapping, a normal diffusion and a significant bronchodilator response. In the correct clinical context this may likely represent COPD (chronic bronchitis) or asthma-COPD overlap syndrome. Clinical Correlation therefore is recommended. Anesthesia Assessment and Plan Anesthesia History Personal History: No History of Anesthesia Complications Family History: No Family History of Anesthesia Complications Exercise Tolerance Exercise Tolerance: Metabolic Equivalents>4 Pertinent Negatives Pertinent Negatives: No Major Cardiovascular Symptoms or Complaints, No Major Pulmonary Symptoms or Complaints and No History of CVA/TIA Cardiac & Pulmonary Exam Cardiac Exam: Normal S1/S2 Heart Sounds Pulmonary Exam: Clear Bilateral Breath Sounds Cardiac and Pulmonary Comment:: Used inhaler today.Breathing good per pt. Implantable Cardiac Device Does patient have a Pacemaker or an ICD?: No Airway Exam Known Difficult Airway: Yes Mallampati Class: 2 Mouth Opening: Normal (> 3cm) Thyromental Distance: Greater than 3 cm Neck Range of Motion: Full ROM Neck Circumference: Normal Teeth Condition: Normal Dentition and Removable Dentures/Plates Upper ASA Classification ASA Score: ASA 3 Emergency Case?: No NPO Status NPO Status: NPO Clears >2 hours, Solids >8 hours Anesthesia Plan Resuscitation Status: Full Code Anesthesia Technique: General Anesthesia Airway Planned: Endotracheal Tube Pain Management: Epidural Monitors Used: Standard Monitors
[2023-01-05] MEDS: ERTAPENEM 1 GM in Normal Saline 50 ML IVPB (07:33)
[2023-01-05] MEDS: FentaNYL/ROPIvacaine 2 mcg/ml and 0.1% 200 ML CADD Cassette EP ×2 (08:28→20:53)
--- NOTE | 2023-01-05 10:17 | APP_PTH ---
PATIENT: Afsaneh Lowe LOC: U#:[id number] AGE/SX: 62/F ROOM: [id number] RE01/05/[address]: Sheryl Tanner : 1960 BED: A DIS: 01/09/2023 SPEC #: [id number] RECD: 01/05/23 11:59 STATUS: SOUT REQ #: [id number] MOIZ: 01/05/23 10:[address]: Sheryl Tanner DEPT: Surgical Specimen RECD BY: Arleen Guillory ENTERED: 01/05/23 11:59 SP TYPE: Appendix OTHR DR: Soraida Sims Tissues: 1 - APPENDIX NOT INCIDENTAL Procedures: GROSS AND MICRO LEVEL 3 Comments: [id number]
[2023-01-05] MEDS: Bupivacaine 0.5% Pres-Free 30 ML VIAL (10:25)
--- NOTE | 2023-01-05 11:16 | ROE_ITS ---
Date of service: 01/05/23 Time of Service: 11:16 Operative Note Operative Note DATE OF PROCEDURE: 01/05/23 PRE-OP DIAGNOSIS: colostomy reversal. s/p perforated diverticulum POST-OP DIAGNOSIS: same PROCEDURE: open colostmy takedown incidental appendectomy SURGEON: Sheryl Tanner ASSISTING SURGEON: Nell Santoro ANESTHESIA TYPE: Local By Surgeon, General LMA/ETT and Epidural Refer to Anesthesia Record ESTIMATED BLOOD LOSS: 100 PATHOLOGY: other COMPLICATIONS: None Patient was transported to: PACU Patient's condition: stable Findings: urine: 100cc NGT: 50cc Procedure Description: Afsaneh is a 62-year-old female who underwent exploratory laparotomy and diverting colostomy and sigmoid resection 6 months ago for perforated diverticulum. She is here today for colostomy takedown. Informed consent is obtained explaining risks and benefits of the procedure including but not limited to: Bleeding, infection, pneumonia, blood clots, chronic pain or numbness, hernias, complications of anesthesia, anastomotic failure and need for reconstruction of the colostomy, stricture at the anastomosis, recurrent diverticulitis, poor cosmesis, and other complications. She completed a mechanical and oral bowel prep preoperatively. A epidural catheter is placed for the pain control by anesthesia preoperatively. Patient is then placed in the supine position. Anesthesia is skillfully administered per the department of anesthesia regulations. OG tube and Saenz catheter are placed. She is then placed in the low lithotomy stirrups. The rectum is washed out so there is no residual stool remaining. She did receive preop antibiotics. The colostomy site is closed with a 3-0 nylon. A rectal prep was done with Betadine. The abdomen is prepped and draped in usual sterile fashion using a ChloraPrep. Timeout is performed. 30 cc of quarter percent Marcaine is used for local anesthesia. The old excision is excised using a #10 blade. Electrocautery used to provide hemostasis and dissect down to the fascia. She has had a very dense inflammatory reaction from her previous surgery. the rectus muscle is split midline. The peritoneum was elevated and entered sharply. The omentum is intimately adhered up to the anterior abdominal wall. This is taken down with combination of blunt dissection and LigaSure. Corbett's are used to aid in retraction for visualization. She has a moderate amount of filmy adhesions from the small bowel down to the pelvis and t o the intact intra-abdominal wall; these were taken down. The small bowel was run. It is normal in appearance and all the adhesions are taken apart. The small bowel was then wrapped in a blue towel and packed away into the abdomen. The rectal stump is identified and isolated. Mesenteric attachments are freed up. Attention then is turned to excising the colostomy. #15 blade is used to make a circumferential skin incision. Electrocautery was used to aid in dissection and the proximal limb of the left colon is dissected out from the abdominal wall. Once we are able to return it to the abdominal cavity, then the white line of Toldt is excised all the way up to the left flexure. Adhesions between the mesentery and the spleen are taken down using electrocautery. There is no sign of bleeding or injury to the spleen. At this point we did have plenty of room to do an anastomosis. It was decided to do a handsewn anastomosis. Bowel clamps are applies. The posterior colon bui are brought together using single layer silk pop-off's on the serosa. Mucosa is sewn with 3-0 Vicryl in a running fashion. The anterior serosa is reapproximated with 2-0 silk. A Good lumen is palpated. There is no bleeding noted. There is no bleeding from the mesenteric dissection sites or around the spleen. The abdomen is irrigated with a liter of saline all saline was removed. The bowel and omentum are returned to their normal anatomic positions. 2 layers of Interceed were placed under the incision site. Fascia is closed with #1 PDS in a running fashion. Deep tissues approximated using 3-0 Vicryl and skin is closed with bladimir. The fascia under the wound ostomy site is closed with 2-0 Prolene. Wound VAC is placed into the subcutaneous tissue at the old ostomy site. This is 6 x 6 x 4 cm. A neha's is placed over the incision . Patient tolerated the procedure well without complication. She is transferred to the PACU in stable condition. Family was apprised of findings.
[2023-01-05] MEDS: ePHEDrine 25 MG/5 ML Syringe IVP ×2 (11:43→11:57)
[2023-01-05] MEDS: Pantoprazole 40 MG VIAL IVP (13:53)
[2023-01-05] MEDS: Enoxaparin 40 MG/0.4 ML SYR SC (13:54)
[2023-01-05] MEDS: DEXTROSE 5%-0.45% SALINE 1,000 ML 75 ML IV (13:54)
--- NOTE | 2023-01-05 15:06 | W.ANESPOSTOP ---
Postoperative Evaluation Date, Time and Location Date Performed: 01/05/23 Time Performed: 15:01 Patient Location: Med/Surg Vital Signs Most Recent Imported Vital Signs: Most Recent Vital Signs Temp Pulse Resp BP Pulse Ox 36 C L 88 16 113/72 97 01/05/23 14:33 01/05/23 14:33 01/05/23 14:33 01/05/23 14:33 01/05/23 14:33 Pain Score Most Recent Pain Score: Most Recent Pain Score Pain Level [Mid Abdomen] 10 01/05/23 14:00 Pain Level 8 01/05/23 14:33 Assessment Mental Status: Awake (Alert & Oriented to Patient Baseline) Airway and Respiratory Function: Patent airway with normal (patient baseline) respiratory exam Cardiovascular Function: Hemodynamically Stable Hydration Status: Adequately Hydrated Nausea & Vomiting: No Nausea or Vomiting Pain: Pain is tolerable per patient (4/10) Peripheral Nerve Block: Other (Continuous epidural infusion at 8ml/hr) Postoperative Comments:: Probable corneal abrasion on left . Dr. Tanner aware and she ordered eye drops for her.
[2023-01-05] MEDS: Refresh PLUS Eye Drops 0.4ml 1 EACH OU ×2 (15:19→21:04)
--- NOTE | 2023-01-05 16:02 | PGE_ITS ---
Date of Service Date of service: 01/05/23 Time of Service: 14:30 Assessment and Plan Assessment and plan (1) S/P colostomy takedown: Status: Acute Assessment and plan: The patient is doing well post-op. Their pain is well controlled. They are having no nausea or vomiting. The pt is not having any chest pain or SOB, productive cough; no calf pain or swelling. The pt is making good urine. The pt pain is adequately controlled. The case was discussed with nursing and patient?s progress reviewed. All of the pt's home medications were addressed and adjusted accordingly for their oral intact status. pt is c/o left eye pain. I think she rubbed her eyes postop before she was fully awake. Artifical tears adn ice pack. don't rub eyes. Pt c/o abdominal pain. Epidural was re-bolused and adjusted by anesthesia. HEENT: no jaundice. . Mild sore throat Cardio- NSR no chest pain, BP stable. Pulm: no sob or productive cough. no hemoptysis Incision- clean/dry. Dressing intact no excessive bleeding or drainage I discussed with the patient and/or there family about the findings in surgery and the pt's progress. We reviewed expectations for progress in the hospital; what the pt could expect for recovery time and length of stay. We discussed the importance of walking and pulmonary toilet to avoid blood clots and pneumonia. Continue current plans for pulmonary toilet, GI and DVT prophylaxis. We shall continue the current plan for pain management as it is at an appropriate level, and working well for the pt. Appropriate measures will be taken for constipation prevention, and this was also reviewed with the pt. The wound care plan was reviewed with nursing as well. Epidural per anethesia. no drains. She does have a picos on the wound and a wound VAC on the previous ostomy site. She will need to go home w/ wound vac. paperwork completed. see orders (2) Chronic narcotic dependence: Status: Acute (3) Former smoker: Status: Acute (4) COPD (chronic obstructive pulmonary disease): Status: Chronic (5) Anxiety: Status: Chronic (6) ADHD: (7) GERD (gastroesophageal reflux disease): (8) Sleep apnea: Objective Last Vital Signs Temp 36.8 C 01/05/23 15:51 Pulse 88 01/05/23 15:51 Resp 16 01/05/23 15:51 BP 110/64 01/05/23 15:51 Pulse Ox 97 01/05/23 15:51 Time Spent with Patient Time Spent with Patient: 25-34 minutes Time was spent: preparing to see the patient(eg.review tests), obtaining and/or reviewing separately otained hiistory, ordering medications,tests, procedures, referring, communicating with other health respiratory care technician, indepentently interpreting results, counseling the patient and care coordination
--- NOTE | 2023-01-05 16:35 | PT.INIE ---
PT Notes Visit Reasons: S/P Colostomy Takedown, Perfrated Diverticula Inpatient Physical Therapy Evaluation Date: 01/05/2023 Referring Doctor: Sheryl Tanner PT Orders: PT CONSULT: Evaluation, mobility Precautions: standard Patient Profile/Admitting Diagnosis: s/p colostomy takedown, perforated divericula surgery 01/05/2023. Recommendations post op to for walking to reduce risk of blood clots and pneumonia. PMHX: []All Active Problems?(Updated 12/21/22 @ 15:41 by Sheryl Tanner, DO) Chronic narcotic dependence (Acute) Former smoker (Acute) Abscess of sigmoid colon due to diverticulitis (Acute) COPD (chronic obstructive pulmonary disease) (Chronic) Anxiety (Chronic) Colostomy in place (Chronic) Cervicalgia (Acute) Tendonitis of long head of biceps brachii of right shoulder (Acute) Degenerative arthritis of cervical spine (Acute) Arthritis of left glenohumeral joint (Acute) HPV (human papilloma virus) infection (Acute) IBS (irritable bowel syndrome) (Chronic) Skin lesion (Acute) Low back pain (Acute) Lumbar radiculopathy (Acute) Abdominal pain (Acute) Abdominal bloating (Acute) Blood in stool (Acute) Hx of allergic reaction (Acute) Closed fracture of right distal fibula (Acute) Shoulder pain (Acute) Trigger finger of all digits of both hands (Acute) Arthritis of right glenohumeral joint (Acute) Spondylosis, cervical (Acute) Carpal tunnel syndrome, bilateral (Acute) Shoulder pain, bilateral (Acute) Effusion of left knee (Acute) Situational depression (Chronic) Myalgia (Acute) Generalized osteoarthritis of multiple sites (Acute) Patellar tendinitis (Acute) Sinusitis (Acute) Mild memory disturbance (Acute) Visit for screening mammogram (Acute) Frequency of urination (Acute) Dysuria (Acute) Ankle joint disorder (Acute) Hypoglycemia (Acute) Sinusitis, acute (Acute) Medical History ADHD Cervical spinal stenosis AGATHA III (cervical intraepithelial neoplasia III) Constipation, chronic COVID Diaphoresis Diverticulosis Duodenitis Dyspnea Edentulous Exposure to COVID-19 virus Gastritis GERD (gastroesophageal reflux disease) Grief reaction Hemangioma of liver Hematemesis History of paresthesia HPV (human papilloma virus) anogenital infection Hyperlipidemia Liver lesion Minimally displaced zone I fracture of sacrum, sequela Nocturnal hypoxia Personal history of nicotine dependence Pneumonia Reactive inflammatory arthritis Seasonal allergic reaction Sleep apnea Supraclavicular lymphadenopathy Tendonitis Tobacco use Social History/Home Situation:Pt lives in home with granddaughter upstairs thus single floor living. She does not need to do stairs. She has pets at home and eager to get home to them. She reports step in tub with rail but having difficulty getting in and out of tub. She does not use AD at baseline , but does use O2 at home. Current Functional Limitations: Difficulty with mobility Equipment Owned/DME: O2 at home, no AD Subjective: My left eye hurts so much I can't open my right eye. ? 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 Objective: General Observation: Pt. has catheter, multiple IV's, O2 n/c 2L, compression. In bed with HOB elevated and eyes closed due to eye pain Mental Status: A and O x3, cooperative, eager to get home but reminded that she will be in hosp for a few days Pain: 11/21 Vital Signs: BP 120/74, O2 96, 2 L n/c O2, HR 93 ROM: Right Upper Extremity: WFL Left Upper Extremity: WFL, limited overhead due to shoulders needing sx Right Lower Extremity: WFL Left Lower Extremity: lacks TKE 20 deg, 90 deg hip flexion from sitting Strength: Right Upper Extremity: WFL Left Upper Extremity: WFL Right Lower Extremity: WFL Left Lower Extremity: DF 4/5, PF NT, Knee ext 3/5, knee flex 3/5, hip flex 3-/5 Sensation: nt Bed Mobility/Transfers: Moderate assist with HOB elevated supine to sit, unable to roll, Mod assist of 2 sit to supine Gait: N/A due to level of pain, unable to open eyes Balance: Static Sitting: good Dynamic Sitting: poor without feet on ground Static Standing: n/a weak with attempt to reposition at edge of bed assist of 2 on either side Dynamic Standing: n/a Special Tests: Mobility Limitations Standardized Measure [facility] AM-PAC 6 clicks Basic Mobility Inpatient Short Form: Raw Score: 12 CMS Score: 68.66 Informed Consent/Education: Patient instructed in purpose of PT consult and plan of care. Assessment: Patient is a 62 year old female referred to physical therapy services with the diagnosis of s/p colosomy take down. Patient presents with clinical signs and symptoms consistent with s/p abdominal sx and hx of COPD also with issue of left eye pain something is in the eye', as demonstrated by the following impairment level findings: unable to open eyes, weakness of L>R LE, limited bed mobility, limited transfers, unable to ambulate. Impairments are contributing to the following functional limitations: AMPAC score. Patient is assessed as a Low 50466 complexity based on the following: Review with patient to perform ankle pumps, lift legs up and down, bridge to reposition. Goals: Goals X1 week 1. Supine-Sit I 2. Sit-Supine I 3. Sit-Stand I 4. Stand-Sit I 5. Bed-Chair I 6. Chair-Bed I 7. Gait amb with least AD Indep 8. Stairs able to assess 9. Independent with home exercise program 10. Balance able to assess Plan of Care/Treatment Plan: 1-2x/day, 7 days/week x 1 week. Plan of care has been reviewed with the [employer] providing the service under Physical Therapy direction. Initiate Physical Therapy intervention for strengthening, bed mobility, transfers, gait, stairs, balance training, use of assistive device. Pt. should be able to progress with standing and progress gait as able. Caution with use of gait belt due to surgery. Based in IE, weakness of LE with repositioning at edge of the bed. Good with moving toward HOB with bridge. DISCHARGE RECOMMENDATIONS: [] Home with no services [] [] Home with services [specify] [] Home with outpatient PT [] [x] SNF for continued rehabilitation [] [] [facility] [] [] SNF versus LTC based on ability to participate and progress [] TREATMENT CODE/TIME: 90219/20'
[2023-01-05] MEDS: Budesonide/Formoterol 160/4.5 6 GM 60 PUFF INH IH (19:12)
[2023-01-06] VITALS (25 sets, daily range): BP systolic 100–131; BP diastolic 61–76; PULSE 77–94; RESP 15–21; TEMP 36.4–37.5; O2SAT 94–98
[2023-01-06] MEDS: DEXTROSE 5%-0.45% SALINE 1,000 ML 75 ML IV ×2 (03:26→16:25)
[2023-01-06] MEDS: Ketorolac 15 MG/ML VIAL IVP ×4 (06:11→23:46)
[2023-01-06] MEDS: Normal Saline Flush 10 ML SYR IV ×4 (06:12→23:47)
[2023-01-06] MEDS: FentaNYL/ROPIvacaine 2 mcg/ml and 0.1% 200 ML CADD Cassette EP (06:25)
--- NOTE | 2023-01-06 07:34 | W.PM.PROGNOT ---
Date of Service Date of service: 01/06/23 Time of Service: 07:34 Assessment and Plan Assessment and plan (1) S/P colostomy takedown: Status: Acute Assessment and plan: Postop day #1 status post colostomy takedown. Continue clear liquids Epidural in place for pain control. Lyn in place Encouraged use of the incentive spirometer Reassurance was provided to Afsaneh for she is quite anxious and uncomfortable today. Agree with the note started by Dinora. I have seen the patient and examined her. She continues to ask for the epidural to be shut off and her lyn to be removed. She would like to just have IV pain medications. I did discuss with the patient that I may not be able to control her pain with IV pain meds only. I also talked to patient about the fact that she will have some discomfort. We reviewed the importance of getting up and out of bed to avoid blood clots and pneumonia. She has been passing flatus Discussed with Anesthesia. They will stop her epidural and see how she does. If she is OK overnight without it they will pull the catheter tomorrow. EXAM: Chest- CTA CV: RRR ABDO: soft, appropriately TTP along the incision. No guarding or rebound A: POD #1 s/p colostomy reversal Advance diet to full liquids Stop epidural treat with IV Morphine and toradol (2) Chronic narcotic dependence: Status: Acute (3) Former smoker: Status: Acute (4) COPD (chronic obstructive pulmonary disease): Status: Chronic (5) Anxiety: Status: Chronic (6) ADHD: (7) GERD (gastroesophageal reflux disease): (8) Sleep apnea: Subjective Subjective Interval history since last seen: Arrived with care and resting comfortably in bed. She was playing a game on her phone. She states that she did not get much sleep last night because she was uncomfortable and had discomfort in her abdomen around the laparotomy incision. She states that she is passing flatus. She is tolerating clear liquids without any nausea or vomiting. She expressed eagerness to have the Lyn DC'd Exam Const General: cooperative, healthy appearing and comfortable Orientation: alert and oriented x3 Resp Effort & Inspection: normal respiratory effort, no audible wheezes and no cough GI Other: Samia dressing noted over the laparotomy incision site. Wound VAC in place over the colostomy site. Objective Last Vital Signs Temp 37.1 C 01/06/23 07:19 Pulse 80 01/06/23 07:19 Resp 18 01/06/23 07:19 BP 106/70 01/06/23 07:19 Pulse Ox 95 01/06/23 07:19 Time Spent with Patient Time Spent with Patient: 35-49 minutes Time was spent: preparing to see the patient(eg.review tests), obtaining and/or reviewing separately otained hiistory, ordering medications,tests, procedures, referring, communicating with other health health care facilities inspector, indepentently interpreting results and counseling the patient
[2023-01-06] MEDS: Budesonide/Formoterol 160/4.5 6 GM 60 PUFF INH IH ×2 (07:37→20:47)
[2023-01-06] MEDS: Umeclidinium 7 CAP INHALER IH (07:38)
[2023-01-06] MEDS: Gabapentin 300 MG CAP PO ×3 (07:39→20:29)
--- NOTE | 2023-01-06 08:02 | RESPIRATORY ---
Spoke with patient about provider noting hx of sleep apnea and if she has a home unit. Patient advised she has not had a formal sleep study but had been scheduled for one which she didn't make due to coming down with Covid. Patient also expressed that she would not strap any mask on her face to sleep.
[2023-01-06 08:38] LABS: Abs Immature Grans 0.04 10^3/uL (0.0-0.06); Absolute Lymphocyte Count 2.26 10^3/uL (1.2-3.4); Absolute Monocyte Count 1.62 10^3/uL (0.1-0.8); Absolute Neutrophil Count 8.02 10^3/uL (1.2-6.7); Basophils % 0.3; Eosinophils % 0.3; HCT 37.9 % (36.0-46.0); HGB 12.2 g/dL (11.2-15.7); Immature Grans % 0.3; Lymphocytes % 18.8; MCH 28.7 pg (27.0-33.0); MCHC 32.2 % (32.0-36.0); MCV 89 fL (80-95); MPV 10.6 fL (8.0-11.0); Monocytes % 13.5; Neutrophils % 66.8; Platelet Count 259 10^3/uL (130-400); RBC 4.25 10^6/uL (3.93-5.22); RDW 12.5 % (11.7-14.6); RDW-SD 41.1 fL
[2023-01-06 08:46] LABS: Absolute Basophil Count 0.04 10^3/uL (0.0-0.2); Absolute Eosinophil Count 0.04 10^3/uL (0.0-0.7)
[2023-01-06 08:47] LABS: Anion Gap 8.9 mmol/L (3-11); BUN 10 mg/dL (7-18); CO2 26.1 mmol/L (21.0-32.0); CREATININE 1.1 mg/dL (0.55-1.02); Calcium 8.3 mg/dL (8.5-10.1); Chloride 104 mmol/L (98-107); Estimated GFR 56.11 (mL/min/1.73m2); Glucose 119 mg/dL (74-106); Potassium 3.8 mmol/L (3.5-5.1); Sodium 139 mmol/L (136-145)
[2023-01-06 09:05] LABS: Diff Comment Diff Reviewed; RBC Morphology Normal
--- NOTE | 2023-01-06 09:22 | W.ANESEPD ---
Epidural/Spinal Daily Note Date Performed: 01/06/23 Assessment Time: 09:15 Patient Location: Med/Surg Catheter Type in Place: Epidural Catheter Dressing Assessment: Dressing intact with good adherence Catheter Assessment: Catheter Labeled and Intact and Functioning Previous Catheter Depth Noted (cm): 15 Current Catheter Depth (cm): 15 Current Medication Infusion: Ropivacaine 0.1% with Fentanyl 2mcg/ml Current Maintenance Infusion Rate (ml/hour): 8 Current PCEA Bolus Dose (ml): 5 Current Pain Score (0-10): 10 Medication Infusion Stopped, Catheter Removal Planned: No New Bolus Given or Change in Infusion Made: Yes Standard Monitors Applied: Blood Pressure, SpO2 and See EMR for corresponding vital signs Epidural Provider Bolus (Indicate Dose Given): Total Ropivacaine 0.1% with Fentanyl 2mcg/ml Given from pump. (ml) Dose:: 8 ml Additives (Indicate Dose Given ): None Infusion Medication: New Infusion Medication Medication Infusion: Ropivacaine 0.1% with Fentanyl 2mcg/ml New Maintenance Infusion Rate (ml/hour): 10 New PCEA Bolus Dose (ml): 5 Pain Score after Medication Change (0-10): 8 Sensory / Motor Block Comments after Change: Left leg weakness with numbness at top of thigh, can bend knee and flex ankle, no motor or sensory changes on right LE. No changes between pre and post bolus assessment. Daily Management Comments: Patient states that she did not sleep last night due to pain. Most of her discomfort is right-sided abdominal pain. Slight improvement in discomfort after epidural bolus. Patient is questioning whether she would prefer to get IV pain meds instead of the epidural so she can get out of the bed. Explained that she could and should sit up in the chair but patient states that sitting with the lyn in place is too uncomfortable. Will discuss the pain management plan with Dr. Santoro. Completed By: Little Gama
--- NOTE | 2023-01-06 10:34 | INITIAL_ITS ---
Date of service: 01/06/23 Time of Service: 10:35 Care Management Initial Assmt Initial Assessment REASON FOR HOSPITALIZATION:: S/P Colostomy takedown, perforated diverticula PREVIOUS FUNCTIONAL STATUS/SOCIAL/FAMILY SUPPORTS:: Afsaneh lives in a single family home in [place] with her daughter Dodie, 2 sons and a granddaughter. She is disabled but is independent at baseline. Afsaneh does not receive any services at home. CURRENT FUNCTIONAL STATUS:: Afsaneh was sitting up in bed with an ice pack on her abdomen when CM met with her. She was grimacing, and stated that she is in a lot of pain. Per MD, Afsaneh asked for the epidural to be removed, which has made her pain difficult to control. She is receiving IV pain medication, and is being encouraged to move to help with her discomfort. CM will continue to follow. ADVANCE DIRECTIVES:: None on file. CM will offer forms. Has patient been provided with info about the portal/API?: Yes Did the patient sign up for the portal?: Yes CODE STATUS:: Full Code INSURANCE COVERAGE / FINANCIAL ISSUES:: LISA CURRENT HOME/COMMUNITY SERVICES/EQUIPMENT:: None PRIMARY CARE PHYSICIAN:: Soraida Sims POTENTIAL DISCHARGE NEEDS:: Afsaneh may be returning home with a new home wound vac, possible need for HH RN. PATIENT/FAMILY EDUCATION NEEDS:: Review discharge instructions and limitations, discussion of self care needs including ask me three. ANTICIPATED BARRIERS TO DISCHARGE:: None anticipated TRANSPORTATION:: Via private vehicle by family. PLAN:: Anticipate Afsaneh will return home, possibly with new HH RN for support with a home wound vac. Her daughter will drive her home via private vehicle. She will follow up with [facility], her PCP and discharge plan of care. CM will continue to follow. PFSH All Active Problems (Updated 01/05/23 @ 16:04 by Sheryl Tanner DO) S/P colostomy takedown (Acute) Chronic narcotic dependence (Acute) Former smoker (Acute) Abscess of sigmoid colon due to diverticulitis (Acute) COPD (chronic obstructive pulmonary disease) (Chronic) Anxiety (Chronic) Cervicalgia (Acute) Tendonitis of long head of biceps brachii of right shoulder (Acute) Degenerative arthritis of cervical spine (Acute) Arthritis of left glenohumeral joint (Acute) HPV (human papilloma virus) infection (Acute) IBS (irritable bowel syndrome) (Chronic) Skin lesion (Acute) Low back pain (Acute) Lumbar radiculopathy (Acute) Abdominal pain (Acute) Abdominal bloating (Acute) Blood in stool (Acute) Hx of allergic reaction (Acute) Closed fracture of right distal fibula (Acute) Shoulder pain (Acute) Trigger finger of all digits of both hands (Acute) Arthritis of right glenohumeral joint (Acute) Spondylosis, cervical (Acute) Carpal tunnel syndrome, bilateral (Acute) Shoulder pain, bilateral (Acute) Effusion of left knee (Acute) Situational depression (Chronic) Myalgia (Acute) Generalized osteoarthritis of multiple sites (Acute) Patellar tendinitis (Acute) Sinusitis (Acute) Mild memory disturbance (Acute) Visit for screening mammogram (Acute) Frequency of urination (Acute) Dysuria (Acute) Ankle joint disorder (Acute) Hypoglycemia (Acute) Sinusitis, acute (Acute) Medical History ADHD Cervical spinal stenosis AGATHA III (cervical intraepithelial neoplasia III) Colostomy in place Constipation, chronic COVID Diaphoresis Diverticulosis Duodenitis Dyspnea Edentulous Exposure to COVID-19 virus Gastritis GERD (gastroesophageal reflux disease) Grief reaction Hemangioma of liver Hematemesis History of paresthesia HPV (human papilloma virus) anogenital infection Hyperlipidemia Liver lesion Minimally displaced zone I fracture of sacrum, sequela Nocturnal hypoxia Personal history of nicotine dependence Pneumonia Reactive inflammatory arthritis Seasonal allergic reaction Sleep apnea Supraclavicular lymphadenopathy Tendonitis Tobacco use Surgical History (Updated 01/06/23 @ 08:04 by Janice Null) Arthroscopy, Shoulder History of colonoscopy (~11/2022) 11/2022, 07/05/2018 History of colostomy reversal (~12/2022) History of esophagogastroduodenoscopy (EGD) (~09/2020) S/P colonoscopy S/P exploratory laparotomy S/P tonsillectomy Trigger Finger release several Family History Mother Personal history of malignant neoplasm uterine, mets to colon Social History Smoking/Tobacco Use Status: Former Tobacco Use Quit Date: 05/14/22 Smoking risk assessment performed?: Yes Alcohol Intake: current Alcohol Intake frequency: a few times a month Alcohol type: wine Drug use: Never Substance use type: does not use Housing: house Current gender identity: female Do you feel safe at home: Yes Do you feel safe in your relationship?: Yes Additional Social history: Live with daughter
[2023-01-06] MEDS: MORPHine 2 MG/ML SYR IVP ×3 (11:28→14:20)
[2023-01-06] MEDS: Normal Saline Flush 10 ML SYR IVP ×2 (14:19→17:12)
--- NOTE | 2023-01-06 15:03 | CHAPLAIN ---
Afsaneh was sitting up in her bed when I visited. She was uncomfortable and asked I get her nurse for her. I will visit another time.
[2023-01-06] MEDS: Enoxaparin 40 MG/0.4 ML SYR SC (15:24)
[2023-01-06] MEDS: MORPHine 4 MG/ML SYR IVP ×2 (15:24→17:11)
[2023-01-06] MEDS: Pantoprazole 40 MG VIAL IVP (15:27)
--- NOTE | 2023-01-06 16:29 | PT.INTREAT ---
Date of service: 01/06/23 Time of Service: 12:43 PT Notes Visit Reasons: S/P Colostomy Takedown, Perfrated Diverticula Inpatient Physical Therapy Treatment Note [facility] Date: 01/06/23 PRECAUTIONS: Fall, standard, activity as tolerated. Saenz catheter in place, wound vac in place, IV attached RUE. SUBJECTIVE: AM: Patient sitting up in chair, reports a lot of pain in the stomach, agreeable to walk to bed. PM: patient in bed, reports something feels broken in there indicating stomach, initially refuses therapy, eventually agrees to bed mobility training to minimize pain. OBJECTIVE: PAIN: 10/10 at rest, worsens with movement. BED MOBILITY/TRANSFERS Rolling L/R: standby with verbal cues Supine-sit: standby with hob elevated Sit-supine: min-mod assist Sit-stand: CGA Stand-sit: CGA Bed-Chair: CGA Chair-bed: CGA GAIT Assistive Device: FWW Weight bearing: full Assist: CGA Distance: 10 feet Deviation: decreased juliet, decreased step height, decreased step length, stooped forward posture, muscle guarding. VITALS: closely monitored via telemetry THERACT: PM bed mobility training, encourage patient to roll onto side, use bed controls to support sitting up. Educated patient on use of trapeze for bed mobility. ASSESSMENT: AM patient tolerates therapy, except getting back into bed at end of session reports extreme pain. PM patient reports extreme pain throughout, states regret about having the surgery. Nursing aware. PLAN: Continue global strengthening to patient tolerance per plan of care. TREATMENT CODE/TIME: 46396 Gait 19 minutes beginning at 12:43. [id number] Ther Act 11 minutes beginning at 16:00
[2023-01-06] MEDS: HYDROmorphone 2 MG/ML SYR 1 MG IVP ×2 (18:37→21:55)
[2023-01-07] VITALS (10 sets, daily range): BP systolic 104–128; BP diastolic 67–82; PULSE 67–90; RESP 16–24; TEMP 36.9–37.3; O2SAT 93–96
[2023-01-07] MEDS: HYDROmorphone 2 MG/ML SYR 1 MG IVP ×8 (03:15→22:39)
[2023-01-07] MEDS: Normal Saline Flush 10 ML SYR IV (03:16)
[2023-01-07] MEDS: Ketorolac 15 MG/ML VIAL IVP ×3 (05:00→20:13)
[2023-01-07] MEDS: DEXTROSE 5%-0.45% SALINE 1,000 ML 75 ML IV (05:18)
--- NOTE | 2023-01-07 07:37 | W.ANESNEU ---
Epidural/Spinal Cath. Removal Date Performed: 01/07/23 Procedure Time: 07:37 Catheter Removal Type: Epidural Catheter Procedure Location: Med/Surg Patient Position: Left Lateral Decubitus Catheter Removal Procedure: Catheter Tip Intact Paresthesia: None Procedure Tolerated: No Complications and Patient did not tolerate well (stated very uncomfortable/painful throughout. ) Procedure Outcome: Successful Procedure Comment:: MAR checked and confirmed with RN, no anticoagulation in the past 12 hrs. Performed By: Azar Klein
[2023-01-07] MEDS: Budesonide/Formoterol 160/4.5 6 GM 60 PUFF INH IH ×2 (08:07→21:22)
[2023-01-07] MEDS: Umeclidinium 7 CAP INHALER IH (08:07)
--- NOTE | 2023-01-07 08:39 | W.PM.PROGNOT ---
Date of Service Date of service: 01/07/23 Time of Service: 08:39 Assessment and Plan Assessment and plan (1) S/P colostomy takedown: Status: Acute Assessment and plan: Postop day #2 status post colostomy takedown. Diet was progressed to full liquids today. As her bowel function returns we will slowly advance her to post-op diet that is low fiber and high protein. Epidural d/c this morning. Pain was well controlled through the night with dilaudid. Will d/c lyn. Encouraged use of the incentive spirometer Encouraged activity OOB, ambulation and sitting in the chair. Wound vac change went well with some discomfort. Wound bed appears healthy. No signs or symptoms to suggest infection. Prior Authorization was submitted for out patient NPWT. Continue with slowly progressing diet. Awaiting full return of her bowel function. Pt seen and examined. tolerating clears. Passing gas but no stool. pt has not been walking/encouraged her to do so (2) Chronic narcotic dependence: Status: Acute (3) Former smoker: Status: Acute (4) COPD (chronic obstructive pulmonary disease): Status: Chronic (5) Anxiety: Status: Chronic (6) ADHD: (7) GERD (gastroesophageal reflux disease): (8) Sleep apnea: Subjective Subjective Interval history since last seen: Arrive with afsaneh resting comfortably in bed. She states she was able to get some sleep last night and that her pain was fairly well controlled over night. She describes having RLQ discomfort that comes and goes in waves. She denies any nasuea or vomiting with eating the full liquids. Exam Const General: cooperative, healthy appearing and comfortable Orientation: alert and oriented x3 Resp Effort & Inspection: normal respiratory effort, no audible wheezes and no cough GI Other: ALESSIO dressing is in place over the midline. Wound vac was removed and the wound was cleansed with sterile saline. Wound measures 3.3 cm x 5.5 cm x 3.5 cm. Wound bed is adipose tissue and granulation tissue. minimal drainage noted. No erythema, swelling or induration. Abdomen is tender to palpation. Wound vac was replaced with small piece of black foam. Seal was achieved. Afsaneh tolerated this well with some discomfort. Objective Last Vital Signs Temp 37 C 01/07/23 07:43 Pulse 88 01/07/23 07:43 Resp 24 01/07/23 07:43 BP 128/82 01/07/23 07:43 Pulse Ox 93 01/07/23 07:43 Laboratory Results - last 24 hr 01/06/23 01/06/23 08:28 08:28 WBC 12.00 H RBC 4.25 Hgb 12.2 Hct 37.9 MCV 89 MCH 28.7 MCHC 32.2 RDW 12.5 Plt Count 259 MPV 10.6 Immature Gran % 0.3 Neutrophils % 66.8 Lymphocytes % 18.8 Monocytes % 13.5 Eosinophils % 0.3 Basophils % 0.3 Nucleated RBC % 0.0 Absolute Neutrophils 8.02 H Absolute Lymphocytes 2.26 Absolute Monocytes 1.62 H Absolute Eosinophils 0.04 Absolute Basophils 0.04 RBC Morphology Normal Sodium 139 Potassium 3.8 Chloride 104 Carbon Dioxide 26.1 Anion Gap 8.9 BUN 10 Creatinine 1.1 H Est GFR (CKD-EPI 2020) 56.11 Glucose 119 H Calcium 8.3 L
[2023-01-07] MEDS: Gabapentin 300 MG CAP PO (09:09)
[2023-01-07] MEDS: Pantoprazole 40 MG VIAL IVP (13:15)
[2023-01-07] MEDS: Gabapentin 600 MG TAB PO ×2 (13:15→20:16)
[2023-01-07] MEDS: Enoxaparin 40 MG/0.4 ML SYR SC (13:15)
[2023-01-07] MEDS: Normal Saline Flush 10 ML SYR IVP (15:35)
--- NOTE | 2023-01-07 16:39 | CMPROGNOTE_ITS ---
Date of service: 01/07/23 Time of Service: 16:39 Care Management Progress Note Progress Note Text Progress Note Text: S/O: Afsaneh was sleeping, and appeared to be resting comfortably. CM spoke to her RN, who stated that she has been in a lot of pain today, so it was good for her to be sleeping, therefore CM did not wake her. Per report, her diet was advanced to full liquids today. CM will continue to follow. A: Afsaneh is a 62 year old female admitted to [facility] on 01/05/23 for s/p colostomy takedown, perforated diverticula. P: Anticipate Afsaneh will return home, possibly with new RN for support with a home wound vac. Her daughter will drive her home via private vehicle. She will follow up with [facility], her PCP and discharge plan of care. CM will continue to follow.
--- NOTE | 2023-01-07 16:58 | PT.INTREAT ---
Date of service: 01/07/23 Time of Service: 14:15 PT Notes Visit Reasons: S/P Colostomy Takedown, Perfrated Diverticula Inpatient Physical Therapy Treatment Note [facility] Date: 01/07/23 PRECAUTIONS: Fall, standard, activity as tolerated. Wound vac and IV in place. SUBJECTIVE: AM: Patient seated EOB, agreeable to therapy. PM: Patient supine in bed, agreeable to therapy. OBJECTIVE: PAIN: AM 5/10. PM a little worse. BED MOBILITY/TRANSFERS Rolling L/R: independent Supine-sit: independent with elevated HOB Sit-supine: independent Sit-stand: SBA Stand-sit: SBA Bed-Chair: SBA Chair-bed: SBA GAIT Assistive Device: FWW Weight bearing: Full Assist: AM CGA, PM SBA Distance: AM 650 feet, PM 730 feet with FWW, 100 feet with no device. Deviation: AM patient demonstrates good step height, good step length, good tigist. No LOB. Reports minor SOB and fatigue. Requests to go lay down. PM patient reports slight increase in pain which increases slightly with ambulation. Tigist decreased. STAIRS: PM patient ascends 2x six inch stairs and descends 3x four inch stairs with bilateral railings and CGA ASSESSMENT: Patient tolerates therapy well, is motivated and eager to get home. PLAN: Continue global therapy per plan of care until patient is medically cleared for discharge. TREATMENT CODE/TIME: 41693 Gait 19 minutes beginning at 14:15. [id number] Gait 19 minutes beginning at 16:33
[2023-01-08] VITALS (7 sets, daily range): BP systolic 117–131; BP diastolic 71–76; PULSE 78–89; RESP 16–20; TEMP 35.4–37.1; O2SAT 94–97
[2023-01-08] MEDS: HYDROmorphone 2 MG/ML SYR 1 MG IVP ×4 (01:07→08:29)
[2023-01-08] MEDS: Normal Saline Flush 10 ML SYR IV (01:10)
[2023-01-08 06:38] LABS: HCT 37.7 % (36.0-46.0); HGB 12.1 g/dL (11.2-15.7); MCH 28.6 pg (27.0-33.0); MCHC 32.1 % (32.0-36.0); MCV 89 fL (80-95); MPV 10.7 fL (8.0-11.0); Platelet Count 296 10^3/uL (130-400); RBC 4.23 10^6/uL (3.93-5.22); RDW 12.5 % (11.7-14.6); RDW-SD 40.5 fL; WBC 8.57 10^3/uL (4.4-10.8)
--- NOTE | 2023-01-08 07:58 | PGE_ITS ---
Date of Service Date of service: 01/08/23 Time of Service: 07:58 Assessment and Plan Assessment and plan (1) S/P colostomy takedown: Status: Acute Assessment and plan: Postop day #3 status post colostomy takedown. Patient is tolerating full liquid diet. We will progress her diet today to regular low fiber high-protein diet. Encouraged use of the incentive spirometer Encouraged activity OOB, ambulation and sitting in the chair. We will place a PT consult Patient had a very small BM, awaiting full return of her bowel function. Once she is tolerating a regular diet and has return of her bowel function will be able to discharge home Agree with above note Patient seen walking around the [facility] area. She is doing well. EXAM: CT- CTA CVS- RRR ABDO- soft, Tender around the incision and old ostomy site. wound vac is working well. Plan: as long as patient continues to do well, is tolerating a diet and her pain is fairly well controlled then will dsicharge in am with Home Health services (2) Chronic narcotic dependence: Status: Acute (3) Former smoker: Status: Acute (4) COPD (chronic obstructive pulmonary disease): Status: Chronic (5) Anxiety: Status: Chronic (6) ADHD: (7) GERD (gastroesophageal reflux disease): (8) Sleep apnea: Subjective Subjective Interval history since last seen: Arrived with Afsaneh sitting up in the chair. She states that she is feeling better now that she is up and walking. She states that she is eager to return home. She does describe that she is having some discomfort however she acknowledges that this is not unexpected following the procedure. She denies any nausea or vomiting. Exam Const General: cooperative, healthy appearing and comfortable Orientation: alert and oriented x3 Resp Effort & Inspection: normal respiratory effort, no audible wheezes and no cough GI Inspection: normal to inspection Palpation: soft, no guarding and tender Percussion: normal to percussion Auscultation: normal bowel sounds Other: Samia dressing is in place over the midline incision Wound VAC is in place over the previous colostomy site. Objective Last Vital Signs Temp 36.6 C 01/08/23 06:20 Pulse 89 01/08/23 06:20 Resp 20 01/08/23 06:20 BP 117/71 01/08/23 06:20 Pulse Ox 94 01/08/23 06:20 Laboratory Results - last 24 hr 01/08/23 06:12 WBC 8.57 RBC 4.23 Hgb 12.1 Hct 37.7 MCV 89 MCH 28.6 MCHC 32.1 RDW 12.5 Plt Count 296 MPV 10.7 Time Spent with Patient Time Spent with Patient: 25-34 minutes Time was spent: preparing to see the patient(eg.review tests), obtaining and/or reviewing separately otained hiistory, ordering medications,tests, procedures, indepentently interpreting results and counseling the patient
[2023-01-08] MEDS: Gabapentin 600 MG TAB PO ×3 (08:29→20:08)
[2023-01-08] MEDS: Umeclidinium 7 CAP INHALER IH (08:53)
[2023-01-08] MEDS: Budesonide/Formoterol 160/4.5 6 GM 60 PUFF INH IH ×2 (08:53→20:20)
--- NOTE | 2023-01-08 10:15 | PT.INTREAT ---
Date of service: 01/08/23 Time of Service: 09:02 PT Notes Visit Reasons: S/P Colostomy Takedown, Perfrated Diverticula Inpatient Physical Therapy Treatment Note [facility] Date: 01/08/23 PRECAUTIONS: Fall, standard, activity as tolerated. Wound vac in place. SUBJECTIVE: Patient sitting EOB, reports she has already walked a bunch this morning but is more than agreeable to go again. Eager to get home. OBJECTIVE: PAIN: 5/10, worsens with walking. BED MOBILITY/TRANSFERS Sit-stand: independent Stand-sit: independent Bed-Chair: independent Chair-bed: independent GAIT Assistive Device: FWW, primarily for management of wound vac Weight bearing: full Assist: standby Distance: 650 feet Deviation: step length reduced, juliet reduced compared to yesterday afternoon. More complaints of pain during ambulation than yesterday afternoon. STAIRS: Patient ascends and descends 2x six inch stairs and 3x four inch stairs with bilateral railings and standby assist, reciprocal gait pattern. ASSESSMENT: Patient eager to get home, tolerates therapy well although notes fairly significant increase in pain at end of therapy session. PLAN: Continue global strengthening per plan of care until patient is medically cleared for discharge. TREATMENT CODE/TIME: 62454 Gait 15 minutes beginning at 9:02
--- NOTE | 2023-01-08 10:41 | PDOC.CMPRO ---
Date of service: 01/08/23 Time of Service: 10:41 Care Management Progress Note Progress Note Text Progress Note Text: S/O: Afsaneh was sitting up in bed when CM met with her. Earlier, CM observed Afsaneh walking around the halls with PT. Afsaneh stated that she is doing well working with PT, although the walking around has caused a lot of gas. She is hoping to have a bowel movement, which she feels will relieve a lot of her discomfort. She stated that her diet was advanced, and today she will have chicken and potatoes for lunch. She reported that she is looking forward to returning home, and she feels she is improving. Per provider, she will continue to be monitored, and will likely discharge home tomorrow, if she continues to improve and is able to tolerate a regular diet. has been notified of the potential weekend discharge with new HH RN. CM will continue to follow. A: Afsaneh is a 62 year old female admitted to [facility] on 01/05/23 for s/p colostomy takedown, perforated diverticula. P: Anticipate Afsaneh will return home, with new HH RN for support with a home wound vac. Her daughter will drive her home via private vehicle. She will follow up with [facility], her PCP and discharge plan of care. CM will continue to follow.
[2023-01-08] MEDS: HYDROmorphone 2 MG TAB PO ×4 (10:46→23:10)
[2023-01-08] MEDS: Ketorolac 15 MG/ML VIAL IVP ×2 (10:46→20:09)
[2023-01-08] MEDS: Enoxaparin 40 MG/0.4 ML SYR SC (14:16)
[2023-01-08] MEDS: Pantoprazole 40 MG VIAL IVP (14:17)
[2023-01-08] MEDS: Simethicone 80 MG CHEW PO ×2 (18:24→21:54)
[2023-01-08] MEDS: Normal Saline Flush 10 ML SYR IVP (20:15)
[2023-01-09] MEDS: Ketorolac 15 MG/ML VIAL IVP (02:56)
[2023-01-09] MEDS: HYDROmorphone 2 MG TAB PO ×2 (03:12→07:59)
--- NOTE | 2023-01-09 03:24 | NUR.NOTE ---
Pt update. So far tonight. pts pain and discomfort seems to be multi-factorial around 2300 on 01/08/23 pt's restless leg syndrome began acting up. she has been getting 600mg gabapentin TID PO here. when i asked the pt what she uses at home, she reports she uses gabapentin 1200mg PO and pramipexole at home prior to bedtime. we have been doing some ambulating in the hallway and scd's which have only provided minimal relief. Nursing Note:
[2023-01-09 06:25] VITALS: BP 143/67; PULSE 78; RESP 16; TEMP 36; O2SAT 95
[2023-01-09] MEDS: Budesonide/Formoterol 160/4.5 6 GM 60 PUFF INH IH (07:41)
[2023-01-09] MEDS: Umeclidinium 7 CAP INHALER IH (07:41)
[2023-01-09] MEDS: Gabapentin 600 MG TAB PO (07:59)
[2023-01-09 08:00] VITALS: RESP 18
[2023-01-09] MEDS: Simethicone 80 MG CHEW PO (08:06)
--- NOTE | 2023-01-09 08:57 | PT.INTREAT ---
PT Notes Visit Reasons: S/P Colostomy Takedown, Perfrated Diverticula Inpatient PT non-treatment note. Arrived to patient's room at 8:50 am. Patient was found sitting on edge of bed dressed in street cloths, indicating as soon as the doctor comes in to see her she is calling her daughter to come take her home. Stated she already walked with the nurse earlier this morning. Is having issues with diarrhea and is not interested in walking again right now.
--- NOTE | 2023-01-09 11:01 | W.PM.DS.N ---
Date of service: 01/09/23 Time of Service: 11:02 DS: Diagnosis Discharge Diagnosis (1) S/P colostomy takedown: Status: Acute (2) Chronic narcotic dependence: Status: Acute (3) Former smoker: Status: Acute (4) COPD (chronic obstructive pulmonary disease): Status: Chronic (5) Anxiety: Status: Chronic (6) ADHD: (7) GERD (gastroesophageal reflux disease): (8) Sleep apnea: Discharge Plan Disposition Patient Disposition: Home Condition: Improving Discharge Details Reason For Visit: S/P Colostomy Takedown, Perfrated Diverticula Admit Date/Time: 01/05/23 11:12 Admit Provider: Sheryl Tanner Attending Provider: Sheryl Tanner Primary Care Provider: Soraida Sims V Hospital Course Hospital Course: Afsaneh is a pleasant 62 year old who is POD #4 s/p colostomy takedown and anastamosis. She has been afeb for the last 36 hours. She is eating a regular, low fiber diet for 24 hours. She is having loose stools. She is complaining of crampy abdominal pain secondary to the diarrhea. Pain is worse before a BM anbd then improves. Patient is on chronic narcotics at home. She takes 10 mg of Oxycodon q6 hours daily. In the Hospital she has been on Dilauded 2 mg q 3 hours. The last set of labs showed no WBC count. Patient would like to go home today. She feels like she is progressing. We discussed return precautions. She should call if she has fevers >101.5, worsening pain, Nausea or Vomiting, bloody diarrhea. She will be discharged with Dilauded 2 mg po q6 hrs to use in between the Oxycodon that she takes chronically. I told the patient she would get 4 days worth of the dilauded. She will be discharged with her wound vac. Follow up on Wednesday for wound vac change and ALESSIO removal. Home Meds and New Rx's Prescriptions: New hydromorphone 2 mg Tablet 2 mg PO Q6H PRN4 Days Qty: 16 0RF metaxalone 800 mg Tablet 800 mg PO QID 30 Days Qty: 120 0RF Continued lubiprostone [Amitiza] 8 mcg capsule 8 mcg PO BID prednisone 20 mg tablet 40 mg PO DAILY PRN Rx Instructions: First dose on 05/19/22 albuterol sulfate [ProAir HFA] 90 mcg/actuation HFA aerosol inhaler 2 puff IH Q4-5H PRN albuterol sulfate 2.5 mg /3 mL (0.083 %) solution for nebulization 2.5 mg IH Q4H PRN pramipexole [Mirapex] 0.125 mg tablet 0.125 mg PO DAILY Rx Instructions: Current med list: 1 Tab q afternoon, 2 tabs q HS fluticasone propionate [Flonase Allergy Relief] 50 mcg/actuation spray,suspension 1 spray CURTIS DAILY PRN Rx Instructions: 1 spray each side 2 times per day oxycodone 10 mg tablet 10 mg PO QID PRN docusate sodium [Colace] 100 mg capsule 100 mg PO PRN PRN aspirin 81 mg tablet,delayed release (DR/EC) 81 mg PO DAILY Adult 50 Plus Probiotic 4 billion cell capsule 10,000 mmu cells PO DAILY Rx Instructions: administer with a meal Incruse Ellipta 62.5 mcg/actuation blister with device 1 inh inhalation DAILY fluticasone propion-salmeterol [Advair Diskus] 250-50 mcg/dose blister with device 1 inh inhalation BID naloxone [Narcan] 4 mg/actuation spray,non-aerosol 4 mg intranasal Q2M PRN Rx Instructions: spray 1 dose into ONE nostril; alternate nostrils w each dose until help arrives methylphenidate HCl 10 mg tablet 10 mg PO BID ibuprofen [Ibuprofen IB] 200 MG tablet 200 mg PO QID PRN PRN Rx Instructions: 600 mg orally Inhaler, Assist Devices [Pocket Chamber] 1 ea miscellaneous DIRECTED Qty: 0 0RF simethicone 80 mg Tablet,Chewable 80 mg PO DIRECTED dextroamphetamine-amphetamine 5 mg tablet 10 mg PO QAM PRN Patient Comments: TAKE TWO TABLETS BY MOUTH EVERY MORNING, NEEDED omeprazole 40 mg capsule,delayed release(DR/EC) 20 mg PO DAILY gabapentin 300 mg Capsule 300 mg PO BID@0830,1200 Qty: 60 0RF lorazepam 1 mg Tablet 1 mg PO TID PRN (Reason: Agitation) Qty: 14 0RF methocarbamol 750 mg Tablet 750 mg PO QID Qty: 60 0RF Discontinued neomycin 500 mg tablet 1 g PO DIRECTED Qty: 6 0RF Rx Instructions: take 2 pills at 2pm/3pm/10pm the before surgery metronidazole 500 mg tablet 500 mg PO DIRECTED Qty: 3 0RF Rx Instructions: take 1 pill at 2pm/3pm/10pm the before surgery polyethylene glycol 3350 17 gram/dose powder 238 g PO ONCE Qty: 238 0RF Rx Instructions: take per colonoscopy instructions bisacodyl [Dulcolax (bisacodyl)] 5 mg tablet,delayed release (DR/EC) 5 mg PO ONCE Qty: 8 0RF Rx Instructions: take per colonoscopy instructions ondansetron HCl 8 mg tablet 8 mg PO Q12H Qty: 3 0RF Discharge Instructions Instructions: Low Fiber Diet (DC), Negative Pressure Wound Therapy (DC) Additional Instructions: Activity at Home after surgery: 1. Make sure you walk outside at least 4 times per day 2. You should be able to climb a flight of stairs 3. No driving while in pain or taking pain medications 4. No strenuous activity or heavy lifting (>10 lb) for 4 weeks (open surgery) Diet, Nutrition, & wound healin. Avoid alcohol until after you are recovered from your surgery 2. Make sure to eat plenty of lean protein (meat, fish, eggs, cottage cheese, beans 3. Drink plenty of liquids to stay hydrated and avoid constipation Pain Medications: 1. Tylenol 650mg every 6 hours as needed and Ibuprofen 600 mg every 6 hours as needed. You may alternate between the 2 medications every 3 hours 2. If a narcotic has been prescribed take as directed only for breakthrough pain. Use the Dilauded prescribed for breakthrough pain in between your normal Oxycodon doses For Constipation: 1. Take Milk of Magnesia or MiraLax as needed for constipation Other: 1. You may shower daily. Do not scrub the incisions 2. Do not soak the incisions for 1 week 3. You may alternate ice and heat as needed for pain and swelling Wound Care: 1. Keep the incisions clean and dry Other Services that may have been ordered: 0 Home Health- to help with dressing changes Please call our office if you develop: 1. Fevers >101.5 2. Nausea or Vomiting 3. Worsening pain 4. Redness and thick discharge from the wounds If after hours please call the Hospital at and ask to speak to the on-call surgeon Stand Alone Forms: Nursing Discharge Form Referrals: Sheryl Tanner DO [OSTEOPATHIC DOCTOR] - 01/11/23 1:00 pm Activity:: as above Equipment/Supplies:: wound vac Diet:: low fiber Discharge Orders Discharge Orders: Discharge Order (Routine); Ordered 01/09/23 Ordered By: Nell Santoro DS: Summary Time Spent with Patient providing and/or coordinating discharge services: Greater than 30 minutes Status at Discharge Functional status at discharge: independent ambulation Overall status at discharge: patient is progressing back to baseline Mental Status: mental status grossly normal Speech and Movement: speech and movement normal Mood: congruent mood Affect: normal affect Exam Const General: comfortable and no acute distress Nutritional Appearance: average body habitus Orientation: alert and oriented x3 HENMT Head: normocephalic and atraumatic Resp Effort & Inspection: normal respiratory effort Auscultation: clear to auscultation bilaterally Cardio Rate: regular rate Rhythm: regular rhythm GI Inspection: other (ALESSIO in place. Wound vac in place) Palpation: soft, no hepatosplenomegaly and tender (appropriately tender around the incision and wound vac) Auscultation: normal bowel sounds Psych Mental Status: mental status grossly normal Speech and Movement: speech and movement normal Mood: congruent mood Affect: normal affect DS: Data Vitals/I&O Vitals and I&O: Vital Signs Temperature 96.8 F L 01/09/23 06:25 Temperature Source Tympanic 01/09/23 06:25 Pulse 78 01/09/23 06:25 Pulse Rhythm Regular 01/09/23 08:00 Respiratory Rate 18 01/09/23 08:00 Respiratory Effort Normal, Non-Labored 01/09/23 08:00 Respiratory Depth Normal 01/09/23 08:00 Respiratory Pattern Normal 01/09/23 08:00 Blood Pressure 143/67 H 01/09/23 06:25 Pulse Oximetry 95 01/09/23 06:25 Respiratory End-tidal CO2 36 01/05/23 12:35 Oxygen Delivery Method Room Air 01/09/23 08:00 Oxygen Flow Rate 0 01/09/23 08:00 Pain Level 6 01/09/23 08:00 Comment pt frustrated. her restless leg syndrome has begun after returning from the restroom. po dilaudid given. 01/08/23 23:19 Intake & Output 01/08/23 01/08/23 01/09/23 11:59 23:59 11:59 Intake Total 46 / 546 500 / 546 Output Total 850 / 850 Balance -804 / -304 500 / -304 Intake: IV Oral 36 / 536 500 / 536 Output: Urine 850 / 850 Other: Urine Color Yellow Pale Yellow Urine Appearance Clear Clear Clear Comment pt ambulated via stand by assist carrying wound vac to the toilet. pt had an unknown void at this time. Stool Size Small Small Stool Characteristics Soft Soft Liquid Voiding Methods Toilet PFSH All Active Problems S/P colostomy takedown (Acute) Chronic narcotic dependence (Acute) Former smoker (Acute) Abscess of sigmoid colon due to diverticulitis (Acute) COPD (chronic obstructive pulmonary disease) (Chronic) Anxiety (Chronic) Cervicalgia (Acute) Tendonitis of long head of biceps brachii of right shoulder (Acute) Degenerative arthritis of cervical spine (Acute) Arthritis of left glenohumeral joint (Acute) HPV (human papilloma virus) infection (Acute) IBS (irritable bowel syndrome) (Chronic) Skin lesion (Acute) Low back pain (Acute) Lumbar radiculopathy (Acute) Abdominal pain (Acute) Abdominal bloating (Acute) Blood in stool (Acute) Hx of allergic reaction (Acute) Closed fracture of right distal fibula (Acute) Shoulder pain (Acute) Trigger finger of all digits of both hands (Acute) Arthritis of right glenohumeral joint (Acute) Spondylosis, cervical (Acute) Carpal tunnel syndrome, bilateral (Acute) Shoulder pain, bilateral (Acute) Effusion of left knee (Acute) Situational depression (Chronic) Myalgia (Acute) Generalized osteoarthritis of multiple sites (Acute) Patellar tendinitis (Acute) Sinusitis (Acute) Mild memory disturbance (Acute) Visit for screening mammogram (Acute) Frequency of urination (Acute) Dysuria (Acute) Ankle joint disorder (Acute) Hypoglycemia (Acute) Sinusitis, acute (Acute) Medical History ADHD Cervical spinal stenosis AGATHA III (cervical intraepithelial neoplasia III) Colostomy in place Constipation, chronic COVID Diaphoresis Diverticulosis Duodenitis Dyspnea Edentulous Exposure to COVID-19 virus Gastritis GERD (gastroesophageal reflux disease) Grief reaction Hemangioma of liver Hematemesis History of paresthesia HPV (human papilloma virus) anogenital infection Hyperlipidemia Liver lesion Minimally displaced zone I fracture of sacrum, sequela Nocturnal hypoxia Personal history of nicotine dependence Pneumonia Reactive inflammatory arthritis Seasonal allergic reaction Sleep apnea Supraclavicular lymphadenopathy Tendonitis Tobacco use Surgical History Arthroscopy, Shoulder History of colonoscopy (~11/2022) 11/2022, 07/05/2018 History of colostomy reversal (~12/2022) History of esophagogastroduodenoscopy (EGD) (~09/2020) S/P colonoscopy S/P exploratory laparotomy S/P tonsillectomy Trigger Finger release several Family History Mother Personal history of malignant neoplasm uterine, mets to colon Social History Smoking/Tobacco Use Status: Former Tobacco Use Quit Date: 05/14/22 Smoking risk assessment performed?: Yes Alcohol Intake: current Alcohol Intake frequency: a few times a month Alcohol type: wine Drug use: Never Substance use type: does not use Housing: house Current gender identity: female Do you feel safe at home: Yes Do you feel safe in your relationship?: Yes Additional Social history: Live with daughter Time Spent with Patient Time Spent with Patient: 45-69 minutes Time was spent: preparing to see the patient(eg.review tests), ordering medications,tests, procedures, referring, communicating with other health wound care specialist, indepentently interpreting results, counseling the patient and care coordination
--- NOTE | 2023-01-09 14:10 | PDOC.CMDIS ---
Date of service: 01/09/23 Time of Service: 14:10 LACE Index Scoring Tool Questions: Length of Stay (in days): 4 - 6 Was the patient admitted via the E.D.?: No Comorbidities: Chronic Pulmonary Disease Care Management Discharge Plan Reason for Hospitalization: S/P Colostomy takedown, perforated diverticula Discharge Plan: Afsaneh will return home with a follow up visit on Wednesday with [facility] for a wound vac change and ALESSIO removal. Her daughter will drive her home via private vehicle. She will also follow up with her PCP and discharge plan of care. Patient/Family Education Needs: Review discharge instructions and limitations, discussion of self care needs including ask me three.
--- NOTE | 2023-01-12 08:04 | DSE_ITS ---
DS: Diagnosis Discharge Diagnosis (1) S/P colostomy takedown: Status: Acute (2) Chronic narcotic dependence: Status: Acute (3) Former smoker: (4) COPD (chronic obstructive pulmonary disease): Status: Chronic (5) Anxiety: Status: Chronic (6) ADHD: (7) GERD (gastroesophageal reflux disease): (8) Sleep apnea: Discharge Plan Disposition Patient Disposition: Home Condition: Improving Discharge Details Reason For Visit: S/P Colostomy Takedown, Perfrated Diverticula Admit Date/Time: 01/05/23 11:12 Admit Provider: Sheryl Tanner Attending Provider: Sheryl Tanner Primary Care Provider: Soraida Sims V Hospital Course Hospital Course: Afsaneh is a pleasant 62 year old who is POD #4 s/p colostomy takedown and anastamosis. She has been afeb for the last 36 hours. She is eating a regular, low fiber diet for 24 hours. She is having loose stools. She is complaining of crampy abdominal pain secondary to the diarrhea. Pain is worse before a BM anbd then improves. Patient is on chronic narcotics at home. She takes 10 mg of Oxyco don q6 hours daily. In the Hospital she has been on Dilauded 2 mg q 3 hours. The last set of labs showed no WBC count. Patient would like to go home today. She feels like she is progressing. We discussed return precautions. She should call if she has fevers >101.5, worsening pain, Nausea or Vomiting, bloody diarrhea. She will be discharged with Dilauded 2 mg po q6 hrs to use in between the Ox ycodon that she takes chronically. I told the patient she would get 4 days worth of the dilauded. She will be discharged with her wound vac. Follow up on Wednesday for wound vac change and ALESSIO removal. Home Meds and New Rx's Prescriptions: New hydromorphone 2 mg Tablet 2 mg PO Q6H PRN4 Days Qty: 16 0RF Continued albuterol sulfate [ProAir HFA] 90 mcg/actuation HFA aerosol inhaler 2 puff IH Q4-5H PRN albuterol sulfate 2.5 mg /3 mL (0.083 %) solution for nebulization 2.5 mg IH Q4H PRN pramipexole [Mirapex] 0.125 mg tablet 0.125 mg PO DAILY Rx Instructions: Current med list: 1 Tab q afternoon, 2 tabs q HS fluticasone propionate [Flonase Allergy Relief] 50 mcg/actuation spray,suspension 1 spray CURTIS DAILY PRN Rx Instructions: 1 spray each side 2 times per day oxycodone 10 mg tablet 10 mg PO QID PRN docusate sodium [Colace] 100 mg capsule 100 mg PO PRN PRN aspirin 81 mg tablet,delayed release (DR/EC) 81 mg PO DAILY Adult 50 Plus Probiotic 4 billion cell capsule 10,000 mmu cells PO DAILY Rx Instructions: administer with a meal Incruse Ellipta 62.5 mcg/actuation blister with device 1 inh inhalation DAILY fluticasone propion-salmeterol [Advair Diskus] 250-50 mcg/dose blister with device 1 inh inhalation BID naloxone [Narcan] 4 mg/actuation spray,non-aerosol 4 mg intranasal Q2M PRN Rx Instructions: spray 1 dose into ONE nostril; alternate nostrils w each dose until help arrives methylphenidate HCl 10 mg tablet 10 mg PO BID ibuprofen [Ibuprofen IB] 200 MG tablet 200 mg PO QID PRN PRN Rx Instructions: 600 mg orally Inhaler, Assist Devices [Pocket Chamber] 1 ea miscellaneous DIRECTED Qty: 0 0RF simethicone 80 mg Tablet,Chewable 80 mg PO DIRECTED dextroamphetamine-amphetamine 5 mg tablet 10 mg PO QAM PRN Patient Comments: TAKE TWO TABLETS BY MOUTH EVERY MORNING, NEEDED omeprazole 40 mg capsule,delayed release(DR/EC) 20 mg PO DAILY gabapentin 300 mg Capsule 300 mg PO BID@0830,1200 Qty: 60 0RF lorazepam 1 mg Tablet 1 mg PO TID PRN (Reason: Agitation) Qty: 14 0RF methocarbamol 750 mg Tablet 750 mg PO QID Qty: 60 0RF Discontinued neomycin 500 mg tablet 1 g PO DIRECTED Qty: 6 0RF Rx Instructions: take 2 pills at 2pm/3pm/10pm the before surgery metronidazole 500 mg tablet 500 mg PO DIRECTED Qty: 3 0RF Rx Instructions: take 1 pill at 2pm/3pm/10pm the before surgery polyethylene glycol 3350 17 gram/dose powder 238 g PO ONCE Qty: 238 0RF Rx Instructions: take per colonoscopy instructions bisacodyl [Dulcolax (bisacodyl)] 5 mg tablet,delayed release (DR/EC) 5 mg PO ONCE Qty: 8 0RF Rx Instructions: take per colonoscopy instructions ondansetron HCl 8 mg tablet 8 mg PO Q12H Qty: 3 0RF No Action methocarbamol 750 mg tablet 750 mg PO QID PRN (Reason: pain (scale score 4-6)) Qty: 60 6RF Metamucil 3.4 gram/5.4 gram powder 1 tbsp PO DAILY Qty: 1 0RF Rx Instructions: mix into at least 8 oz of water or juice before administering Metamucil 3.4 gram/5.4 gram powder 1 tbsp PO DAILY Qty: 660 6RF Rx Instructions: mix into at least 8 oz of water or juice before administering Discharge Instructions Instructions: Low Fiber Diet (DC), Negative Pressure Wound Therapy (DC) Additional Instructions: Activity at Home after surgery: 1. Make sure you walk outside at least 4 times per day 2. You should be able to climb a flight of stairs 3. No driving while in pain or taking pain medications 4. No strenuous activity or heavy lifting (>10 lb) for 4 weeks (open surgery) Diet, Nutrition, & wound healin. Avoid alcohol until after you are recovered from your surgery 2. Make sure to eat plenty of lean protein (meat, fish, eggs, cottage cheese, beans 3. Drink plenty of liquids to stay hydrated and avoid constipation Pain Medications: 1. Tylenol 650mg every 6 hours as needed and Ibuprofen 600 mg every 6 hours as needed. You may alternate between the 2 medications every 3 hours 2. If a narcotic has been prescribed take as directed only for breakthrough pain. Use the Dilauded prescribed for breakthrough pain in between your normal Oxycodon doses For Constipation: 1. Take Milk of Magnesia or MiraLax as needed for constipation Other: 1. You may shower daily. Do not scrub the incisions 2. Do not soak the incisions for 1 week 3. You may alternate ice and heat as needed for pain and swelling Wound Care: 1. Keep the incisions clean and dry Other Services that may have been ordered: 0 Home Health- to help with dressing changes Please call our office if you develop: 1. Fevers >101.5 2. Nausea or Vomiting 3. Worsening pain 4. Redness and thick discharge from the wounds If after hours please call the Hospital at and ask to speak to the on-call surgeon Stand Alone Forms: Nursing Discharge Form Referrals: Soraida Sims MD [Primary Care Provider] - (Please make a follow up discharge appointment for 1-2 weeks ) Sheryl Tanner DO [OSTEOPATHIC DOCTOR] - 01/11/23 1:00 pm Activity:: as above Equipment/Supplies:: wound vac Diet:: low fiber Discharge Orders Discharge Orders: Discharge Order (Routine); Ordered 01/09/23 Ordered By: Nell Santoro Discharge Data Discharge Date/Time-TO BE ENTERED AT DEPARTURE: 01/09/23 12:08 DS: Data Vitals/I&O Vitals and I&O: Vital Signs Temperature 96.8 F L 01/09/23 06:25 Temperature Source Tympanic 01/09/23 06:25 Pulse 78 01/09/23 06:25 Pulse Rhythm Regular 01/09/23 08:00 Respiratory Rate 18 01/09/23 08:00 Respiratory Effort Normal, Non-Labored 01/09/23 08:00 Respiratory Depth Normal 01/09/23 08:00 Respiratory Pattern Normal 01/09/23 08:00 Blood Pressure 143/67 H 01/09/23 06:25 Pulse Oximetry 95 01/09/23 06:25 Respiratory End-tidal CO2 36 01/05/23 12:35 Oxygen Delivery Method Room Air 01/09/23 08:00 Oxygen Flow Rate 0 01/09/23 08:00 Pain Level 6 01/09/23 08:00 Comment pt frustrated. her restless leg syndrome has begun after returning from the restroom. po dilaudid given. 01/08/23 23:19 PFSH All Active Problems (Updated 01/11/23 @ 13:40 by Sheryl Tanner DO) Chronic constipation without overflow incontinence (Acute) S/P colostomy takedown (Acute) Chronic narcotic dependence (Acute) Abscess of sigmoid colon due to diverticulitis (Acute) COPD (chronic obstructive pulmonary disease) (Chronic) Anxiety (Chronic) Cervicalgia (Acute) Tendonitis of long head of biceps brachii of right shoulder (Acute) Degenerative arthritis of cervical spine (Acute) Arthritis of left glenohumeral joint (Acute) HPV (human papilloma virus) infection (Acute) IBS (irritable bowel syndrome) (Chronic) Skin lesion (Acute) Low back pain (Acute) Lumbar radiculopathy (Acute) Abdominal pain (Acute) Abdominal bloating (Acute) Blood in stool (Acute) Hx of allergic reaction (Acute) Closed fracture of right distal fibula (Acute) Shoulder pain (Acute) Trigger finger of all digits of both hands (Acute) Arthritis of right glenohumeral joint (Acute) Spondylosis, cervical (Acute) Carpal tunnel syndrome, bilateral (Acute) Shoulder pain, bilateral (Acute) Effusion of left knee (Acute) Situational depression (Chronic) Myalgia (Acute) Generalized osteoarthritis of multiple sites (Acute) Patellar tendinitis (Acute) Sinusitis (Acute) Mild memory disturbance (Acute) Visit for screening mammogram (Acute) Frequency of urination (Acute) Dysuria (Acute) Ankle joint disorder (Acute) Hypoglycemia (Acute) Sinusitis, acute (Acute) Medical History ADHD Cervical spinal stenosis AGATHA III (cervical intraepithelial neoplasia III) Constipation, chronic COVID Diaphoresis Diverticulosis Duodenitis Dyspnea Edentulous Exposure to COVID-19 virus Former smoker Gastritis GERD (gastroesophageal reflux disease) Grief reaction Hemangioma of liver Hematemesis History of paresthesia HPV (human papilloma virus) anogenital infection Hyperlipidemia Liver lesion Minimally displaced zone I fracture of sacrum, sequela Nocturnal hypoxia Personal history of nicotine dependence Pneumonia Reactive inflammatory arthritis Seasonal allergic reaction Sleep apnea Supraclavicular lymphadenopathy Tendonitis Tobacco use Surgical History Arthroscopy, Shoulder History of colonoscopy (~11/2022) 11/2022, 07/05/2018 History of colostomy reversal (~12/2022) History of esophagogastroduodenoscopy (EGD) (~09/2020) S/P colonoscopy S/P exploratory laparotomy S/P tonsillectomy Trigger Finger release several Family History Mother Personal history of malignant neoplasm uterine, mets to colon Social History Smoking/Tobacco Use Status: Former Tobacco Use Quit Date: 05/14/22 Smoking risk assessment performed?: Yes Alcohol Intake: current Alcohol Intake frequency: a few times a month Alcohol type: wine Drug use: Never Substance use type: does not use Housing: house Current gender identity: female Do you feel safe at home: Yes Do you feel safe in your relationship?: Yes Additional Social history: Live with daughter
== END 2023-01-09 12:08 | disposition home or self-care (01) | DRG 330 ==
LOC: PDS 11:30 → MS 13:03
PROVIDERS: Admitting Provider Surgery; PCP Family Medicine; Visit Provider Surgery
PROC: 0DSM0ZZ Reposition Descending Colon, Open Approach (ICD-10-PCS; CPT 44320; principal; 2023-01-05 07:30)
DX: Z43.3 Encounter for attention to colostomy (principal); F11.20 Opioid dependence, uncomplicated; J44.9 Chronic obstructive pulmonary disease, unspecified; F41.9 Anxiety disorder, unspecified; K21.9 Gastro-esophageal reflux disease without esophagitis; F90.9 Attention-deficit hyperactivity disorder, unspecified type; G47.30 Sleep apnea, unspecified; Z87.891 Personal history of nicotine dependence; R19.7 Diarrhea, unspecified
CPT/HCPCS: 44620; 36415; 80048; 85027; 94640; 97116; 97161; 97530; J1650; J3490; 85025; 88304; 94664; 94760; J1100; J1170; J1335; J1885; J2001; J2250; J2270; J2371; J2405; J2704; J3010

== ENCOUNTER 2023-02-16 16:00 | Outpatient (CLI) | payer MEDICAID, SELFPAY ==
[2023-02-16 15:10] LABS: Abs Immature Grans 0.03 10^3/uL (0.0-0.06); Absolute Basophil Count 0.04 10^3/uL (0.0-0.2); Absolute Eosinophil Count 0.29 10^3/uL (0.0-0.7); Absolute Lymphocyte Count 2.21 10^3/uL (1.2-3.4); Absolute Monocyte Count 1.03 10^3/uL (0.1-0.8); Absolute Neutrophil Count 5.22 10^3/uL (1.2-6.7); Basophils % 0.5; Eosinophils % 3.3; HCT 41.9 % (36.0-46.0); HGB 13.2 g/dL (11.2-15.7); Immature Grans % 0.3; Lymphocytes % 25.1; MCHC 31.5 % (32.0-36.0); MCV 89 fL (80-95); MPV 10.1 fL (8.0-11.0); Monocytes % 11.7; Neutrophils % 59.1; Platelet Count 291 10^3/uL (130-400); RBC 4.72 10^6/uL (3.93-5.22); RDW 12.7 % (11.7-14.6); RDW-SD 41.8 fL; WBC 8.82 10^3/uL (4.4-10.8)
[2023-02-16 15:20] LABS: C-Reactive Protein 0.14 mg/dL (0.0-0.3)
== END 2023-02-16 16:01 | disposition home or self-care (01) ==
LOC: LBO 16:00
PROVIDERS: PCP Family Medicine; Visit Provider Surgery
DX: F11.20 Opioid dependence, uncomplicated (principal); F41.9 Anxiety disorder, unspecified; J44.9 Chronic obstructive pulmonary disease, unspecified; K59.09 Other constipation; K62.5 Hemorrhage of anus and rectum; Z98.890 Other specified postprocedural states
CPT/HCPCS: 36415; 85025; 86140

== ENCOUNTER → 2023-07-09 00:32 | Outpatient (CLI) | payer MEDICAID, SELFPAY ==
--- NOTE | 2023-07-09 | DI.US_ITS ---
Exam(s) US HERNIA EXAM: US HERNIA CLINICAL HISTORY: COLOSTOMY STATUS Z93.3 ASSESS FOR LLQ TITI-INCISIONAL HERNIA, HAD OSTOMY. TECHNIQUE: Ultrasound was performed using standard protocol. COMPARISON: CT CT ABDOMEN PELVIS W from 11/20/2022 FINDINGS: Sonographic assessment utilizing grayscale and color Doppler imaging was performed and targeted to th e area of clinical concern. There is a hernia in the left lower quadrant. The neck of the hernia measures 2.5 cm. Abdominal fat is seen herniating through the defect. This corresponds to the area of the patient's previous colos clari. IMPRESSION: Finding of the incisional left lower quadrant fat containing hernia. DATA REPOSITORY:
== END ==
PROVIDERS: PCP Family Medicine; Visit Provider Family Medicine
DX: K65.4 Sclerosing mesenteritis (principal)
CPT/HCPCS: 76857

== ENCOUNTER 2023-09-17 11:00 | Inpatient (IN) | payer MEDICAID, SELFPAY ==
[2023-09-17] VITALS (45 sets, daily range): BP systolic 100–161; BP diastolic 49–95; PULSE 89–134; RESP 2–36; TEMP 31–39.4; O2SAT 83–95
--- NOTE | 2023-09-17 11:15 | RT.EKG_ITS ---
APPROVED REPORT Exam: Resting ECG Reason for Exam: fever Patient Location: E HR:129 bpm ECG Measurements Heart Rate 129 AXIS NE 156 P 74 QRSd 78 QRS 62 QT 288 T 56 QTc 423 Conclusion Sinus tachycardia...rate> 99 Sinus tachycardia. When compared to prior 09/09/22 heart rate has increased. [place]
--- NOTE | 2023-09-17 11:45 | DI.RAD_ITS ---
Exam(s) XR PORTABLE CHEST AP EXAM: XR PORTABLE CHEST AP CLINICAL HISTORY: SOB. TECHNIQUE: 2D digital imaging was performed. COMPARISON: CR,XR XR PORTABLE CHEST AP POST LINE from 09/12/2022 FINDINGS: Single AP portable view. Heart size is upper normal. The mediastinum is not widened. Lungs are clear. No infiltrates nor obvious pleural effusions. Degenerative changes in the right shoulder glenohumeral joint again noted as well as postsurgical wid ening of the right AC joint again noted, unchanged. IMPRESSION: No acute pulmonary findings on this single AP portable view of the chest. DATA REPOSITORY: RADIATION DOSE DELIVERED:
[2023-09-17 11:57] LABS: Abs Immature Grans 0.38 10^3/uL (0.0-0.06); Absolute Lymphocyte Count 1.33 10^3/uL (1.2-3.4); Basophils % 0.5; Eosinophils % 0.3; HCT 43.5 % (36.0-46.0); HGB 13.9 g/dL (11.2-15.7); Immature Grans % 2.5; Lymphocytes % 8.7; MCH 29.1 pg (27.0-33.0); MCV 91 fL (80-95); MPV 9.7 fL (8.0-11.0); Monocytes % 11.9; Neutrophils % 76.1; Platelet Count 380 10^3/uL (130-400); RBC 4.77 10^6/uL (3.93-5.22); RDW-SD 43.9 fL; Source Nasal/Nares; WBC 15.32 10^3/uL (4.4-10.8)
[2023-09-17] MEDS: Normal Saline 1,000 ML 1000 ML IV ×2 (11:57→13:15)
[2023-09-17 11:58] LABS: Absolute Basophil Count 0.08 10^3/uL (0.0-0.2); Absolute Eosinophil Count 0.05 10^3/uL (0.0-0.7); Absolute Monocyte Count 1.82 10^3/uL (0.1-0.8); Absolute Neutrophil Count 11.66 10^3/uL (1.2-6.7)
[2023-09-17 12:01] LABS: BE (Venous) 5 mmol/L (-2-3); HCO3 (Venous) 29 mmol/L (23-28); O2 Sat (Venous) 94 %; TCO2 (Venous) 26 mmol/L (24-29); pCO2 (Venous) 43 mmHg (41-51); pH (Venous) 7.44 (7.31-7.41); pO2 (Venous) 65 mmHg
[2023-09-17 12:09] LABS: Diff Comment Agrees w/ Instrument; RBC Morphology Normal
[2023-09-17 12:12] LABS: Bilirubin Negative (Negative); Blood Small (Negative); Clarity Clear (Clear); Glucose Negative (Negative); Ketones Negative (Negative); Leukocyte Esterase Moderate (Negative); Nitrite Negative (Negative); Urobilinogen 0.2 mg/dL (Up to 0.2)
[2023-09-17] MEDS: Ketorolac 30 MG/ML VIAL IVP (12:17)
[2023-09-17] MEDS: levoFLOXacin 500 MG/100 ML BAG 100 MG IVPB (12:17)
[2023-09-17] MEDS: methylPREDNISolone SUCC 125 MG VIAL IVP (12:17)
[2023-09-17] MEDS: Albuterol/Ipratropium 3 ML UPD VIAL UPD ×4 (12:18→23:34)
[2023-09-17 12:19] LABS: Bacteria Few HPF (Negative); C & S Indicated? No/Sq. Contamination; Casts Negative LPF (Negative); Crystals Negative HPF (Negative); Epithelial Cells Moderate HPF (Negative); Mucus Negative (Negative); WBC 20-50 HPF (0-5)
[2023-09-17 12:21] LABS: ALT 32 U/L (14-59); AST 46 U/L (15-37); Albumin 3.2 g/dL (3.4-5.0); Alkaline Phosphatase 72 U/L (46-116); Anion Gap 8.7 mmol/L (3-11); BUN 8 mg/dL (7-18); Bilirubin, Total 0.5 mg/dL (0.2-1.0); CO2 28.3 mmol/L (21.0-32.0); CREATININE 1.1 mg/dL (0.55-1.02); Calcium 8.6 mg/dL (8.5-10.1); Chloride 95 mmol/L (98-107); Estimated GFR 56.11 (mL/min/1.73m2); Glucose 108 mg/dL (74-106); Magnesium 1.8 mg/dL (1.8-2.4); Potassium 4.1 mmol/L (3.5-5.1); Sodium 132 mmol/L (136-145); Total Protein 7.7 g/dL (6.4-8.2); Troponin I < 50 ng/L (< or =60)
[2023-09-17 12:29] LABS: COVID-19 PCR Negative (Negative)
[2023-09-17] MEDS: MAGNESIUM SULFATE 2 GM/50 ML BAG IVPB (12:40)
[2023-09-17] MEDS: LORazepam 2 MG/ML VIAL IVP (13:29)
--- NOTE | 2023-09-17 13:56 | DI.CT_ITS ---
Exam(s) CT CHEST PE ABD PELVIS W EXAM: CT CHEST PE ABD PELVIS W CLINICAL HISTORY: hypoxia, abd pain, hernia. TECHNIQUE: Imaging Protocol: Axial CT angiography was performed with multi-slice acquisition and m ulti-planar and/or 3D reconstructions. CONTRAST MATERIAL: Intravenous: Omnipaque 350 Contrast volume:100 ml Oral: None COMPARISON: CT CT ABDOMEN PELVIS W from 11/20/2022 FINDINGS: CHEST: Respiratory motion artifact on all images. PULMONARY ARTERIES: Suboptimal opacification of distal pulmonary arterial tree. However, there is king ggestion intraluminal filling defect in the right lower lobe vessels. LUNGS: Small benign appearing fissure related nodule in the posterior aspect of the left upper lobe. Respiratory motion artifact but no prominent areas of infiltrate and no pleural effusions evident.. MEDIASTINUM: There is no hilar nor mediastinal adenopathy. CARDIAC: Heart size is normal. There is no pericardial effusion. There is no significant shift of t he interventricular septum.Caliber thoracic aorta is within normal limits. There is no evidence of a ortic dissection. OSSEOUS: No significant osseous lesions.No fractures.. ABDOMEN: There is no ascites. LIVER: Liver is hypodense implying steatosis. There no discrete focal hepatic lesions identified. N o dilated intrahepatic ducts. GALLBLADDER/BILIARY: No obvious acute gallbladder pathology. CBD is not dilated. PANCREAS: No evidence of pancreatic mass nor dilatation of the pancreatic duct. SPLEEN: Spleen is not enlarged. There are no intrasplenic lesions. Splenic and portal veins are mayers nt. ADRENALS: There are no significant adrenal masses. KIDNEYS:No cysts evident. No calculi nor hydronephrosis. No solid renal masses. ABDOMINAL AORTA: Abdominal aorta is not enlarged. LYMPH NODES: There is no retroperitoneal or para-aortic adenopathy. ABDOMINAL WALL/GI: There is in anterior left abdominal wall hernia after prior ostomy site. No bowel obstruction PELVIS: LYMPH NODES: There is no intrapelvic nor inguinal adenopathy. GI: No evidence of appendicitis.There has been partial sigmoid resection. No inflammatory process no r obstruction at this level. No significant sigmoid diverticular disease. URINARY BLADDER: No calculi nor masses evident REPRODUCTIVE: Uterus and adnexal regions unremarkable. No free fluid. OSSEOUS: No fractures. No significant osseous lesions. IMPRESSION: 1. Suboptimal pulmonary embolus study due to motion artifact and suboptimal opacification of distal p ulmonary arteries. However, there is a subtle suggestion of intraluminal filling defects in right lo wer lobe pulmonary arteries suspicious for pulmonary emboli at this level. There is no evidence of p ulmonary infarction or pleural effusions. 2. Evidence of previous colon surgery. No evidence of bowel obstruction, free air, nor abscess. How ever, there is a left-sided anterior abdominal wall hernia at previous colostomy site. This hernia s ac does not contain bowel loops nor fluid. 3. No ascites. 4. Other findings as above. RADIATION DOSE DELIVERED: Total DLP DATA REPOSITORY: All CT scans at this facility are submitted to the National Radiology Data Registry (NRDR) Dose Index Registry (DIR) with the [employer] (A[employer]). RADIATION OPTIMIZATION: All CT scans at this facility use at least one of these dose optimization te chniques: automated exposure control; mA and/or kV adjustment per patient size (includes targeted exa ms where dose is matched to clinical indication); or iterative reconstruction.
[2023-09-17] MEDS: MORPHine 4 MG/ML SYR IVP (14:14)
--- NOTE | 2023-09-17 14:16 | HPE_ITS ---
Date of service: 09/17/23 Time of Service: 14:16 Assessment and Plan Assessment and plan (1) Acute respiratory failure with hypoxia: Status: Acute Assessment and plan: - Patient presented with hypoxia and given diminished breath sounds and wheezing determined to be secondary to COPD exacerbation as well as PE that was noted on CTA -Patient has been started on heparin drip and will continue for 48 hours before transitioning to p.o. Eliquis -She was given 125 of methylprednisolone and breathing treatments in the emergency department significant improvement, and continues require 2 L nasal cannula to maintain oxygen saturation greater than 88% -Will continue prednisone 40 mg daily -Every 6 hours scheduled nebulizer treatments with every 2 hours as needed albuterol for ongoing shortness of breath -Also given that patient was complaining of increase sputum production she was started on Levaquin which will be continued (2) Acute exacerbation of chronic obstructive pulmonary disease (COPD): Status: Acute Assessment and plan: - As noted above (3) Pulmonary embolism: Status: Chronic Assessment and plan: - As noted above (4) Chronic narcotic dependence: Status: Acute Assessment and plan: - Will hold opiates at this time as patient is somewhat tired -Will restart as patient becomes more awake (5) Anxiety: Status: Chronic (6) Degenerative arthritis of cervical spine: Status: Acute Qualifiers: Spinal osteoarthritis complication: with radiculopathy Qualified Code(s): M47.22 - Other spondylosis with radiculopathy, cervical region History of Present Illness History of Present Illness Chief Complaint: Shortness of breath Narrative: 62-year-old female with past medical history of COPD, chronic narcotic dependence due to degenerative arthritis spine and bilateral lower extremities, who presents emergency department complaints of shortness of breath. Patient states she has been feeling more short of breath over the last few days despite using her inhalers and nebulizers at home. She denies any headache, lightheadedness, dizziness, chest pain or shortness of breath. In the emergency department the patient was noted as being tachycardic with a heart rate of 134, blood pressure with systolics mainly in the 120s, and initial respiratory rate in the high 30s which is since improved to the low 20s, and an oxygen saturation of 83% that improved to 91% on 2 L nasal cannula. CBC showed a white blood cell count of 15, ABG while on 2 L nasal cannula did not show hypoxia, or hypercapnia, and chest x-ray showed no acute pulmonary findings on AP portable view. On physical exam patient was noted as having significant decreased breath sounds with some audible expiratory wheezing for which she was given 125 of methylprednisone and DuoNeb treatments. Given she was also complaining of increased sputum production and she has significant was her allergies she was given Levaquin. Patient also complaining of pain at the site of known abdominal hernia, and given patient's hypoxic and tachycardic she was also ordered a CTA to rule out a PE as well as CT of the abdomen to make sure her hernia is not incarcerated. However, emergency room physician paged hospitalist for admission for patient with acute hypoxic respiratory failure secondary to an acute exacerbation of COPD. Review of Systems All systems reviewed & are unremarkable except as noted in HPI and below PFSH All Active Problems (Updated 09/17/23 @ 17:46 by Shon Adhikari MD) Pulmonary embolism (Chronic) Abdominal hernia (Acute) Hypoxia (Acute) Acute exacerbation of chronic obstructive pulmonary disease (COPD) (Acute) Acute respiratory failure with hypoxia (Acute) Constipation due to opioid therapy (Acute) Bright red rectal bleeding (Acute) Chronic constipation without overflow incontinence (Acute) S/P colostomy takedown (Acute) Chronic narcotic dependence (Acute) COPD (chronic obstructive pulmonary disease) (Chronic) Anxiety (Chronic) Cervicalgia (Acute) Tendonitis of long head of biceps brachii of right shoulder (Acute) Degenerative arthritis of cervical spine (Acute) Arthritis of left glenohumeral joint (Acute) HPV (human papilloma virus) infection (Acute) IBS (irritable bowel syndrome) (Chronic) Skin lesion (Acute) Low back pain (Acute) Lumbar radiculopathy (Acute) Abdominal pain (Acute) Abdominal bloating (Acute) Hx of allergic reaction (Acute) Closed fracture of right distal fibula (Acute) Shoulder pain (Acute) Trigger finger of all digits of both hands (Acute) Arthritis of right glenohumeral joint (Acute) Spondylosis, cervical (Acute) Carpal tunnel syndrome, bilateral (Acute) Shoulder pain, bilateral (Acute) Effusion of left knee (Acute) Situational depression (Chronic) Myalgia (Acute) Generalized osteoarthritis of multiple sites (Acute) Patellar tendinitis (Acute) Sinusitis (Acute) Mild memory disturbance (Acute) Visit for screening mammogram (Acute) Frequency of urination (Acute) Dysuria (Acute) Ankle joint disorder (Acute) Hypoglycemia (Acute) Sinusitis, acute (Acute) Medical History (Updated 09/17/23 @ 17:46 by Shon Adhikari MD) Former smoker Abscess of sigmoid colon due to diverticulitis Personal history of nicotine dependence Diverticulosis HPV (human papilloma virus) anogenital infection Pneumonia History of paresthesia Supraclavicular lymphadenopathy Tendonitis Sleep apnea Diaphoresis Dyspnea Nocturnal hypoxia COVID Hematemesis ADHD Duodenitis Gastritis GERD (gastroesophageal reflux disease) Exposure to COVID-19 virus Liver lesion Grief reaction Hemangioma of liver Seasonal allergic reaction Constipation, chronic Cervical spinal stenosis Hyperlipidemia Tobacco use Minimally displaced zone I fracture of sacrum, sequela Edentulous Reactive inflammatory arthritis Blood in stool AGATHA III (cervical intraepithelial neoplasia III) Surgical History History of colostomy reversal (~12/2022) S/P exploratory laparotomy S/P tonsillectomy S/P colonoscopy History of esophagogastroduodenoscopy (EGD) (~09/2020) History of colonoscopy (~11/2022) 11/2022, 07/05/2018 Trigger Finger release several Arthroscopy, Shoulder Family History Mother Personal history of malignant neoplasm uterine, mets to colon Social History Smoking/Tobacco Use Status: Former Tobacco Use Quit Date: 05/14/22 Smoking risk assessment performed?: Yes Alcohol Intake: current Alcohol Intake frequency: a few times a month Alcohol type: wine Drug use: Never Substance use type: does not use Housing: house Current gender identity: female Do you feel safe at home: Yes Do you feel safe in your relationship?: Yes Additional Social history: Live with daughter Meds Allergies and Home Medications Allergies Allergy/AdvReac Type Severity Reaction Status Date / Time acetaminophen Allergy Severe Hives Verified 09/17/23 11:42 [From Mapap (acetaminophen)] bupropion Allergy Intermediate Other (See Verified 09/17/23 11:42 Comment) cephalexin [Cephalexin] Allergy Intermediate Skin Rash Verified 09/17/23 11:42 Penicillins Allergy Intermediate rash with Verified 09/17/23 11:42 all cillins ampicillin Allergy Mild Skin Rash Verified 09/17/23 11:42 atorvastatin Allergy Mild Other (See Verified 09/17/23 11:42 Comment) cefprozil [From Cefzil] Allergy Mild Skin Rash Verified 09/17/23 11:42 Cephalosporins Allergy Mild Hives Verified 09/17/23 11:42 clindamycin Allergy Mild Skin Rash Verified 09/17/23 11:42 doxycycline Allergy Mild Skin Rash Verified 09/17/23 11:42 varenicline [From Chantix] Allergy Mild Other (See Verified 09/17/23 11:42 Comment) cefuroxime [From Ceftin] Allergy Hives Verified 09/17/23 11:42 clarithromycin [From Biaxin] Allergy rash/hives Verified 09/17/23 11:42 duloxetine [From Cymbalta] AdvReac Intermediate made me Verified 09/17/23 11:42 feel very weird linaclotide [From Linzess] AdvReac Mild Diarrhea Verified 09/17/23 11:42 nicotine [From Nicorette] AdvReac Mild Nauseaous Verified 09/17/23 11:42 adhesive tape AdvReac Unknown Skin Rash Verified 09/17/23 11:42 banana AdvReac abd Verified 09/17/23 11:42 bloating codeine AdvReac sick Verified 09/17/23 11:42 hydrocodone [From Vicodin] AdvReac cold Verified 09/17/23 11:42 sweats, vomiting medipore tape Allergy Severe skin Uncoded 09/17/23 11:42 blisters black hair dye Allergy Intermediate Hives Uncoded 09/17/23 11:42 eggs Allergy bloating Uncoded 09/17/23 11:42 stoma adhesive AdvReac Severe bleeding Uncoded 09/17/23 11:42 rash Home Medications Medication Instructions Recorded Confirmed Type ibuprofen 200 mg tablet (Ibuprofen 200 mg PO QID PRN PRN 09/18/15 09/17/23 History IB) albuterol sulfate 2.5 mg/3 mL 2.5 mg inhalation Q4H PRN 06/26/19 09/17/23 History (0.083 %) solution for nebulization albuterol sulfate 90 mcg/actuation 2 puff inhalation Q4-5H PRN 06/26/19 09/17/23 History aerosol inhaler (ProAir HFA) pramipexole 0.125 mg tablet 0.125 mg PO DAILY 06/26/19 09/17/23 History (Mirapex) fluticasone propionate 50 1 spray intranasal DAILY PRN 06/26/20 09/17/23 History mcg/actuation nasal spray,suspension (Flonase Allergy Relief) oxycodone 10 mg tablet 10 mg PO QID PRN 08/28/20 09/17/23 History aspirin 81 mg tablet,delayed 81 mg PO DAILY 05/12/22 09/17/23 History release docusate sodium 100 mg capsule 100 mg PO PRN PRN 05/12/22 09/17/23 History (Colace) fluticasone 250 mcg-salmeterol 50 1 inh inhalation BID 05/12/22 09/17/23 History mcg/dose blistr powdr for inhalation (Advair Diskus) umeclidinium 62.5 mcg/actuation 1 inh inhalation DAILY 05/12/22 09/17/23 History blister powder for inhalation (Incruse Ellipta) Inhaler, Assist Devices [Pocket 1 ea miscellaneous DIRECTED ##0 05/18/22 09/17/23 Rx Chamber] methylphenidate HCl 10 mg tablet 10 mg PO BID 06/18/22 09/17/23 History naloxone 4 mg/actuation nasal 4 mg intranasal Q2M PRN 06/18/22 09/17/23 History spray (Narcan) gabapentin 300 mg capsule 300 mg PO BID@0830,1200 #60 caps 09/21/22 09/17/23 Rx methocarbamol 750 mg tablet 750 mg PO QID #60 tabs 09/21/22 09/17/23 Rx simethicone 80 mg chewable tablet 80 mg PO DIRECTED 01/04/23 09/17/23 History dextroamphetamine-amphetamine 5 mg 10 mg PO QAM PRN 01/05/23 09/17/23 History tablet methocarbamol 750 mg tablet 750 mg PO QID PRN pain (scale 01/11/23 09/17/23 Rx score 4-6) #60 tabs psyllium husk 3.4 gram/5.4 gram 1 tbsp PO DAILY #1 tbsp 01/11/23 09/17/23 Rx oral powder (Metamucil) lorazepam 1 mg tablet 1 mg PO TID PRN anxiety #12 tabs 01/13/23 09/17/23 Rx prednisone 10 mg tablet 10 mg PO DIRECTED 09/17/23 09/17/23 History Exam Narrative Exam Narrative: Fatigued appearing female laying in bed in no acute distress, high flow nasal cannula in place though this is primarily for work of breathing she is only on 35% FiO2, awake, alert, oriented x 4, heart regular rate rhythm, lungs with expiratory wheezing throughout and diminished in bilateral bases, abdomen soft, nontender, with no protruding hernia noted Results Labs 09/17/23 11:40 09/17/23 11:40 Labs: Laboratory Results - last 24 hr 09/17/23 09/17/23 11:00 11:40 WBC 15.32 H RBC 4.77 Hgb 13.9 Hct 43.5 MCV 91 MCH 29.1 MCHC 32.0 RDW 13.0 Plt Count 380 MPV 9.7 Immature Gran % 2.5 Neutrophils % 76.1 Lymphocytes % 8.7 Monocytes % 11.9 Eosinophils % 0.3 Basophils % 0.5 Nucleated RBC % 0.0 Absolute Neutrophils 11.66 H Absolute Lymphocytes 1.33 Absolute Monocytes 1.82 H Absolute Eosinophils 0.05 Absolute Basophils 0.08 RBC Morphology Normal VBG pH 7.44 H VBG pCO2 43 VBG pO2 65 VBG HCO3 29 H VBG Total CO2 26 VBG O2 Saturation 94 VBG Base Excess 5 H VBG Lactate 1.0 Sodium 132 L Potassium 4.1 Chloride 95 L Carbon Dioxide 28.3 Anion Gap 8.7 BUN 8 Creatinine 1.1 H Est GFR (CKD-EPI 2020) 56.11 Glucose 108 H Calcium 8.6 Magnesium 1.8 Total Bilirubin 0.5 AST 46 H ALT 32 Alkaline Phosphatase 72 Troponin I < 50 Total Protein 7.7 Albumin 3.2 L Urine Color Yellow Urine Clarity Clear Urine pH 6.0 Ur Specific [place] 1.010 Urine Protein Negative Urine Ketones Negative Urine Blood Small H Urine Nitrite Negative Urine Bilirubin Negative Urine Urobilinogen 0.2 Ur Leukocyte Esterase Moderate H Urine RBC 5-10 H Urine WBC 20-50 H Ur Epithelial Cells Moderate Urine Crystals Negative Urine Bacteria Few Urine Casts Negative Urine Mucus Negative Ur Culture Indicated? No/Sq. Contamination Urine Glucose Negative COVID-19 Source Nasal/Nares SARS-CoV-2 (PCR) Negative Last Vital Signs Temp 102.9 F H 09/17/23 11:21 Pulse 101 H 09/17/23 13:46 Resp 23 09/17/23 13:50 BP 129/60 09/17/23 13:46 Pulse Ox 91 L 09/17/23 14:00 Time Spent Time spent with Patient: >75 minutes Time was spent: preparing to see the patient(eg.review tests), obtaining and/or reviewing separately otained hiistory, ordering medications,tests, procedures, referring, communicating with other health career based intervention coordinator, indepentently interpreting results, counseling the patient and care coordination
--- NOTE | 2023-09-17 14:24 | ED.GENADUL_ITS ---
Discharge Plan Disposition Patient Disposition: Admit to [facility] Condition: Stable Discharge Details Chief Complaint: SOB Clinical Impression: Hypoxia, Acute exacerbation of chronic obstructive pulmonary disease (COPD), Abdominal pain, Abdominal hernia Admit Date/Time: 09/17/23 14:16 Admit Provider: Shon Adhikari Attending Provider: Shon Adhikari Primary Care Provider: Soraida Sims V ED Provider: Genet Vivar [facility] General Date/Time Provider Initiated Documentation: 09/17/23 11:46 . HPI Narrative: 62-year-old female with history of COPD presents for evaluation of shortness of breath. Patient has not felt well for the last 1 to 2 weeks. She states that she has had a cough with some intermittent sputum production. She has had some blood in the sputum times. She states that she has significant discomfort with coughing. It is hard to catch her breath. She does have history of abdominal hernia and has abdominal discomfort when coughing. She has had a fever. No chills. She has had decreased oral intake. Denies any diarrhea or constipation. No urinary difficulty. No leg pain or swelling. She does have a history of tobacco use. She does have inhalers and nebulizers that she uses at home. She took 30 mg of oral prednisone earlier today. She is not currently on any antibiotics. She has never been intubated in the past. Related Data Home Medications Medication Instructions Recorded Confirmed ibuprofen 200 mg tablet (Ibuprofen 200 mg PO QID PRN PRN 09/18/15 09/17/23 IB) albuterol sulfate 2.5 mg/3 mL 2.5 mg inhalation Q4H PRN 06/26/19 09/17/23 (0.083 %) solution for nebulization albuterol sulfate 90 mcg/actuation 2 puff inhalation Q4-5H PRN 06/26/19 09/17/23 aerosol inhaler (ProAir HFA) pramipexole 0.125 mg tablet 0.125 mg PO DAILY 06/26/19 09/17/23 (Mirapex) fluticasone propionate 50 1 spray intranasal DAILY PRN 06/26/20 09/17/23 mcg/actuation nasal spray,suspension (Flonase Allergy Relief) oxycodone 10 mg tablet 10 mg PO QID PRN 08/28/20 09/17/23 aspirin 81 mg tablet,delayed 81 mg PO DAILY 05/12/22 09/17/23 release docusate sodium 100 mg capsule 100 mg PO PRN PRN 05/12/22 09/17/23 (Colace) fluticasone 250 mcg-salmeterol 50 1 inh inhalation BID 05/12/22 09/17/23 mcg/dose blistr powdr for inhalation (Advair Diskus) umeclidinium 62.5 mcg/actuation 1 inh inhalation DAILY 05/12/22 09/17/23 blister powder for inhalation (Incruse Ellipta) Inhaler, Assist Devices [Pocket 1 ea miscellaneous DIRECTED ##0 05/18/22 09/17/23 Chamber] methylphenidate HCl 10 mg tablet 10 mg PO BID 06/18/22 09/17/23 naloxone 4 mg/actuation nasal 4 mg intranasal Q2M PRN 06/18/22 09/17/23 spray (Narcan) gabapentin 300 mg capsule 300 mg PO BID@0830,1200 #60 caps 09/21/22 09/17/23 methocarbamol 750 mg tablet 750 mg PO QID #60 tabs 09/21/22 09/17/23 simethicone 80 mg chewable tablet 80 mg PO DIRECTED 01/04/23 09/17/23 dextroamphetamine-amphetamine 5 mg 10 mg PO QAM PRN 01/05/23 09/17/23 tablet methocarbamol 750 mg tablet 750 mg PO QID PRN pain (scale 01/11/23 09/17/23 score 4-6) #60 tabs psyllium husk 3.4 gram/5.4 gram 1 tbsp PO DAILY #1 tbsp 01/11/23 09/17/23 oral powder (Metamucil) lorazepam 1 mg tablet 1 mg PO TID PRN anxiety #12 tabs 01/13/23 09/17/23 prednisone 10 mg tablet 10 mg PO DIRECTED 09/17/23 09/17/23 Previous Rx's Medication Instructions Recorded Inhaler, Assist Devices [Pocket 1 ea miscellaneous DIRECTED ##0 05/18/22 Chamber] gabapentin 300 mg capsule 300 mg PO BID@0830,1200 #60 caps 09/21/22 methocarbamol 750 mg tablet 750 mg PO QID #60 tabs 09/21/22 methocarbamol 750 mg tablet 750 mg PO QID PRN pain (scale 01/11/23 score 4-6) #60 tabs psyllium husk 3.4 gram/5.4 gram 1 tbsp PO DAILY #1 tbsp 01/11/23 oral powder (Metamucil) lorazepam 1 mg tablet 1 mg PO TID PRN anxiety #12 tabs 01/13/23 Allergies Allergy/AdvReac Type Severity Reaction Status Date / Time acetaminophen Allergy Severe Hives Verified 09/17/23 11:42 [From Mapap (acetaminophen)] bupropion Allergy Intermediate Other (See Verified 09/17/23 11:42 Comment) cephalexin [Cephalexin] Allergy Intermediate Skin Rash Verified 09/17/23 11:42 Penicillins Allergy Intermediate rash with Verified 09/17/23 11:42 all cillins ampicillin Allergy Mild Skin Rash Verified 09/17/23 11:42 atorvastatin Allergy Mild Other (See Verified 09/17/23 11:42 Comment) cefprozil [From Cefzil] Allergy Mild Skin Rash Verified 09/17/23 11:42 Cephalosporins Allergy Mild Hives Verified 09/17/23 11:42 clindamycin Allergy Mild Skin Rash Verified 09/17/23 11:42 doxycycline Allergy Mild Skin Rash Verified 09/17/23 11:42 varenicline [From Chantix] Allergy Mild Other (See Verified 09/17/23 11:42 Comment) cefuroxime [From Ceftin] Allergy Hives Verified 09/17/23 11:42 clarithromycin [From Biaxin] Allergy rash/hives Verified 09/17/23 11:42 duloxetine [From Cymbalta] AdvReac Intermediate made me Verified 09/17/23 11:42 feel very weird linaclotide [From Linzess] AdvReac Mild Diarrhea Verified 09/17/23 11:42 nicotine [From Nicorette] AdvReac Mild Nauseaous Verified 09/17/23 11:42 adhesive tape AdvReac Unknown Skin Rash Verified 09/17/23 11:42 banana AdvReac abd Verified 09/17/23 11:42 bloating codeine AdvReac sick Verified 09/17/23 11:42 hydrocodone [From Vicodin] AdvReac cold Verified 09/17/23 11:42 sweats, vomiting medipore tape Allergy Severe skin Uncoded 09/17/23 11:42 blisters black hair dye Allergy Intermediate Hives Uncoded 09/17/23 11:42 eggs Allergy bloating Uncoded 09/17/23 11:42 stoma adhesive AdvReac Severe bleeding Uncoded 09/17/23 11:42 rash General Stated Complaint: SOB MIGUEL: 2 Review of Systems Narrative: Remainder of review of systems otherwise negative except for as noted in the HPI x 10. Exam Narrative Exam Narrative: General: non-toxic, mod respiratory distress, comfortable HEENT: normocephalic, atraumatic, lids and lashes normal, PERRL, EOMI, anicteric sclera, no conjunctival injection, moist oral mucosa Card: Tachycardic, regular, S1S2, no murmurs, rubs, or gallops Lungs: Decreased air exchange with slight expiratory wheezes, no rales, rhonchi, or retractions Abd: soft, non-tender, non-distended, normal bowel sounds, no rebound or guarding, no peritoneal signs Musculoskeletal: full range of motion of arms and legs, no tenderness to palpation. no clubbing, cyanosis, or edema Neurologic: appropriate for age, strength normal Psych: alert and oriented Skin: no petechiae, no lesions, warm and dry Course Vital Signs Vital signs: Vital Signs Temperature 39.4 C H 09/17/23 11:21 Pulse 134 H 09/17/23 11:21 Respiratory Rate 22 09/17/23 11:21 Blood Pressure 161/95 H 09/17/23 11:21 Pulse Oximetry 88 L 09/17/23 11:21 Temperature 39.4 C H 09/17/23 11:21 Temperature Source Temporal Artery Scan 09/17/23 11:21 Pulse 102 H 09/17/23 14:16 Pulse 110 H 09/17/23 14:16 Respiratory Rate 24 09/17/23 14:16 Respiratory Effort Short of Breath, Incrsd Work of Breathing 09/17/23 11:34 Respiratory Depth Shallow 09/17/23 11:34 Respiratory Pattern Tachypnea 09/17/23 11:34 Blood Pressure 120/74 09/17/23 14:16 Blood Pressure Mean 89 09/17/23 14:16 Blood Pressure Position Sitting 09/17/23 11:21 Pulse Oximetry 91 L 09/17/23 14:00 Respiratory End-tidal CO2 33 09/17/23 14:16 Oxygen Delivery Method Nasal Cannula 09/17/23 14:00 Oxygen Flow Rate 5 09/17/23 14:00 Pain Level 5 09/17/23 14:14 Lab/Test Results Lab/Test Results: 09/17/23 12:11 Blood Blood Culture - Pending 09/17/23 11:40 Blood Blood Culture - Pending Laboratory Tests Range/Units 09/17/23 09/17/23 11:00 11:40 WBC (4.4-10.8) 10^3/uL 15.32 H RBC (3.93-5.22) 10^6/uL 4.77 Hgb (11.2-15.7) g/dL 13.9 Hct (36.0-46.0) % 43.5 MCV (80-95) fL 91 MCH (27.0-33.0) pg 29.1 MCHC (32.0-36.0) % 32.0 RDW (11.7-14.6) % 13.0 Plt Count (130-400) 10^3/uL 380 MPV (8.0-11.0) fL 9.7 Immature Gran % 2.5 Neutrophils % 76.1 Lymphocytes % 8.7 Monocytes % 11.9 Eosinophils % 0.3 Basophils % 0.5 Nucleated RBC % (0.0-0.3) % 0.0 Absolute Neutrophils (1.2-6.7) 10^3/uL 11.66 H Absolute Lymphocytes (1.2-3.4) 10^3/uL 1.33 Absolute Monocytes (0.1-0.8) 10^3/uL 1.82 H Absolute Eosinophils (0.0-0.7) 10^3/uL 0.05 Absolute Basophils (0.0-0.2) 10^3/uL 0.08 RBC Morphology Normal VBG pH (7.31-7.41) 7.44 H VBG pCO2 (41-51) mmHg 43 VBG pO2 mmHg 65 VBG HCO3 (23-28) mmol/L 29 H VBG Total CO2 (24-29) mmol/L 26 VBG O2 Saturation % 94 VBG Base Excess (-2-3) mmol/L 5 H VBG Lactate (0.6-1.4) mmol/L 1.0 Sodium (136-145) mmol/L 132 L Potassium (3.5-5.1) mmol/L 4.1 Chloride (98-107) mmol/L 95 L Carbon Dioxide (21.0-32.0) mmol/L 28.3 Anion Gap (3-11) mmol/L 8.7 BUN (7-18) mg/dL 8 Creatinine (0.55-1.02) mg/dL 1.1 H Est GFR (CKD-EPI 2020) (mL/min/1.73m2) 56.11 Glucose (74-106) mg/dL 108 H Calcium (8.5-10.1) mg/dL 8.6 Magnesium (1.8-2.4) mg/dL 1.8 Total Bilirubin (0.2-1.0) mg/dL 0.5 AST (15-37) U/L 46 H ALT (14-59) U/L 32 Alkaline Phosphatase (46-116) U/L 72 Troponin I (< or =60) ng/L < 50 Total Protein (6.4-8.2) g/dL 7.7 Albumin (3.4-5.0) g/dL 3.2 L Urine Color (Yellow) Yellow Urine Clarity (Clear) Clear Urine pH (5-8) 6.0 Ur Specific [place] (1.005-1.025) 1.010 Urine Protein (Neg-Trace) mg/dL Negative Urine Ketones (Negative) mg/dL Negative Urine Blood (Negative) Small H Urine Nitrite (Negative) Negative Urine Bilirubin (Negative) Negative Urine Urobilinogen (Up to 0.2) mg/dL 0.2 Ur Leukocyte Esterase (Negative) Moderate H Urine RBC (0-2) HPF 5-10 H Urine WBC (0-5) HPF 20-50 H Ur Epithelial Cells (Negative) HPF Moderate Urine Crystals (Negative) HPF Negative Urine Bacteria (Negative) HPF Few Urine Casts (Negative) LPF Negative Urine Mucus (Negative) Negative Ur Culture Indicated? No/Sq. Contamination Urine Glucose (Negative) mg/dL Negative COVID-19 Source Nasal/Nares SARS-CoV-2 (PCR) (Negative) Negative Medical Decision Making 62-year-old female history of COPD presents for evaluation of shortness of breath. Patient was significantly hypoxic on arrival. She required nasal cannula oxygen. She was given IV Solu-Medrol and IV magnesium in addition to DuoNeb. Despite the nasal cannula oxygen patient had an episode of desaturation when attempting to use the commode. Chest x-ray is unremarkable. EKG shows sinus tachycardia. Patient received 2 L of IV fluids. Normal lactic acid. Blood cultures are pending. This is likely a COPD exacerbation. She was treated with IV Levaquin given her multiple drug allergies. Rapid COVID is negative. Given patient's tachycardia, tobacco use, and hypoxia will check CT to evaluate for PE. Given abdominal discomfort will check abdominal CT at the same. She did have a additional episode of hypoxia. Second DuoNeb ordered. Respiratory consulted for high flow. Patient will require admission for further evaluation and treatment. Case discussed with hospitalist, Dr. Adhikari who will admit to their service. Quality:[facility] Health Related Social Needs: No Data to Display Critical Care Time Critical Care Time Attestation: CRITICAL CARE Total critical care time: 45 minutes Clinical concern: Hypoxia, COPD exacerbation Critical care interventions: IV Solu-Medrol, IV magnesium, IV antibiotics, DuoNeb assessment, hospitalist consultation Total critical care time included the assessment and discussions as described in the emergency department history, physical, and medical decision making. The critical care time provided excludes separately billable procedures. [facility] All Active Problems (Updated 09/17/23 @ 15:23 by Genet Vivar MD) Abdominal hernia (Acute) Hypoxia (Acute) Acute exacerbation of chronic obstructive pulmonary disease (COPD) (Acute) Acute respiratory failure with hypoxia (Acute) Constipation due to opioid therapy (Acute) Bright red rectal bleeding (Acute) Chronic constipation without overflow incontinence (Acute) S/P colostomy takedown (Acute) Chronic narcotic dependence (Acute) COPD (chronic obstructive pulmonary disease) (Chronic) Anxiety (Chronic) Cervicalgia (Acute) Tendonitis of long head of biceps brachii of right shoulder (Acute) Degenerative arthritis of cervical spine (Acute) Arthritis of left glenohumeral joint (Acute) HPV (human papilloma virus) infection (Acute) IBS (irritable bowel syndrome) (Chronic) Skin lesion (Acute) Low back pain (Acute) Lumbar radiculopathy (Acute) Abdominal pain (Acute) Abdominal bloating (Acute) Hx of allergic reaction (Acute) Closed fracture of right distal fibula (Acute) Shoulder pain (Acute) Trigger finger of all digits of both hands (Acute) Arthritis of right glenohumeral joint (Acute) Spondylosis, cervical (Acute) Carpal tunnel syndrome, bilateral (Acute) Shoulder pain, bilateral (Acute) Effusion of left knee (Acute) Situational depression (Chronic) Myalgia (Acute) Generalized osteoarthritis of multiple sites (Acute) Patellar tendinitis (Acute) Sinusitis (Acute) Mild memory disturbance (Acute) Visit for screening mammogram (Acute) Frequency of urination (Acute) Dysuria (Acute) Ankle joint disorder (Acute) Hypoglycemia (Acute) Sinusitis, acute (Acute) Medical History (Updated 09/17/23 @ 15:23 by Genet Vivar MD) Former smoker Abscess of sigmoid colon due to diverticulitis Personal history of nicotine dependence Diverticulosis HPV (human papilloma virus) anogenital infection Pneumonia History of paresthesia Supraclavicular lymphadenopathy Tendonitis Sleep apnea Diaphoresis Dyspnea Nocturnal hypoxia COVID Hematemesis ADHD Duodenitis Gastritis GERD (gastroesophageal reflux disease) Exposure to COVID-19 virus Liver lesion Grief reaction Hemangioma of liver Seasonal allergic reaction Constipation, chronic Cervical spinal stenosis Hyperlipidemia Tobacco use Minimally displaced zone I fracture of sacrum, sequela Edentulous Reactive inflammatory arthritis Blood in stool AGATHA III (cervical intraepithelial neoplasia III) Surgical History History of colostomy reversal (~12/2022) S/P exploratory laparotomy S/P tonsillectomy S/P colonoscopy History of esophagogastroduodenoscopy (EGD) (~09/2020) History of colonoscopy (~11/2022) 11/2022, 07/05/2018 Trigger Finger release several Arthroscopy, Shoulder Family History Mother Personal history of malignant neoplasm uterine, mets to colon Social History Smoking/Tobacco Use Status: Former Tobacco Use Quit Date: 05/14/22 Smoking risk assessment performed?: Yes Alcohol Intake: current Alcohol Intake frequency: a few times a month Alcohol type: wine Drug use: Never Substance use type: does not use Housing: house Current gender identity: female Do you feel safe at home: Yes Do you feel safe in your relationship?: Yes Additional Social history: Live with daughter
[2023-09-17] MEDS: Omnipaque 350 MG/ML 50 ML BTL IJ ×2 (14:57→14:58)
[2023-09-17] MEDS: Normal Saline - Diluent 50 ML VIAL IJ (15:00)
[2023-09-17 15:22] LABS: *AMPHETAMINES SCREEN URINE Negative (Negative); *BARBITURATES SCREEN URINE Negative (Negative); *BENZODIAZEPINES SCREEN URINE Negative (Negative); Cannabinoids THC Negative (Negative); Cocaine Screen,Urine Negative (Negative); METHADONE URINE SCREEN Negative (Negative); OPIATES URINE SCREEN Positive (Negative)
[2023-09-17 15:23] LABS: Tricyclic Antidepressants Negative (Negative)
[2023-09-17 15:54] LABS: Troponin I < 50 ng/L (< or =60)
[2023-09-17] MEDS: Heparin in 0.45% NaCl 25,000 UNIT/250 ML BAG 15.5 UNIT IV (19:34)
[2023-09-17] MEDS: Normal Saline Flush 10 ML SYR IVP ×3 (19:35→22:43)
[2023-09-17] MEDS: MORPHine 2 MG/ML SYR IVP ×2 (20:19→22:42)
[2023-09-18] VITALS (21 sets, daily range): BP systolic 114–140; BP diastolic 62–78; PULSE 84–111; RESP 2–22; TEMP 31–37.9; O2SAT 90–100
[2023-09-18] MEDS: MORPHine 2 MG/ML SYR IVP ×4 (01:27→23:34)
[2023-09-18] MEDS: Albuterol 2.5 MG/3 ML INH SOLN VIAL UPD (01:57)
[2023-09-18] MEDS: Benzonatate 100 MG CAP PO (02:26)
[2023-09-18 02:44] LABS: PTT Activated > 155.0 sec (23.6-32.8)
[2023-09-18] MEDS: Albuterol/Ipratropium 3 ML UPD VIAL UPD ×4 (06:07→23:54)
[2023-09-18 06:51] LABS: HCT 40.4 % (36.0-46.0); HGB 13.1 g/dL (11.2-15.7); MCHC 32.4 % (32.0-36.0); MCV 92 fL (80-95); MPV 9.9 fL (8.0-11.0); Platelet Count 341 10^3/uL (130-400); RBC 4.37 10^6/uL (3.93-5.22); RDW 13.1 % (11.7-14.6); RDW-SD 44.7 fL; WBC 11.98 10^3/uL (4.4-10.8)
[2023-09-18 07:07] LABS: BUN 12 mg/dL (7-18); CREATININE 0.8 mg/dL (0.55-1.02); Calcium 8.2 mg/dL (8.5-10.1); Chloride 101 mmol/L (98-107); Estimated GFR 82.23 (mL/min/1.73m2); Glucose 86 mg/dL (74-106); Magnesium 2.5 mg/dL (1.8-2.4); Potassium 4.3 mmol/L (3.5-5.1); Sodium 137 mmol/L (136-145)
[2023-09-18] MEDS: predniSONE 20 MG TAB 40 MG PO (07:43)
[2023-09-18] MEDS: levoFLOXacin 500 MG, levoFLOXacin 250 MG 750 MG PO (07:43)
[2023-09-18] MEDS: Normal Saline Flush 10 ML SYR IVP ×4 (07:44→23:33)
[2023-09-18] MEDS: oxyCODONE 10 MG TAB PO ×3 (08:29→21:21)
[2023-09-18] MEDS: Heparin in 0.45% NaCl 25,000 UNIT/250 ML BAG 13 UNIT IV (08:31)
--- NOTE | 2023-09-18 08:39 | W.PM.PROGNOT ---
Date of Service Date of service: 09/18/23 Time of Service: 08:39 Assessment and Plan Assessment and plan (1) Acute respiratory failure with hypoxia: Status: Acute Assessment and plan: - Patient presented with hypoxia and given diminished breath sounds and wheezing determined to be secondary to COPD exacerbation as well as PE that was noted on CTA -Patient has been started on heparin drip and will continue for 48 hours before transitioning to p.o. Eliquis -She was given 125 of methylprednisolone and breathing treatments in the emergency department significant improvement, and continues require 2 L nasal cannula to maintain oxygen saturation greater than 88% -Will continue prednisone 40 mg daily -Every 6 hours scheduled nebulizer treatments with every 2 hours as needed albuterol for ongoing shortness of breath -Also given that patient was complaining of increase sputum production she was started on Levaquin which will be continued (2) Acute exacerbation of chronic obstructive pulmonary disease (COPD): Status: Acute Assessment and plan: - As noted above (3) Pulmonary embolism: Status: Chronic Assessment and plan: - As noted above (4) Chronic narcotic dependence: Status: Acute Assessment and plan: - Restarted home Oxy 10 mg 4 times daily as patient is no longer somnolent and is an pain at this time (5) Anxiety: Status: Chronic (6) Degenerative arthritis of cervical spine: Status: Acute Qualifiers: Spinal osteoarthritis complication: with radiculopathy Qualified Code(s): M47.22 - Other spondylosis with radiculopathy, cervical region Subjective Subjective Interval history since last seen: Patient states that she is uncomfortable she has not received her home dose of 10 mg oxy 4 times daily. She understands she did not get yesterday she was somnolent, but appreciates that it has been reordered. Otherwise she states that her breathing is a little better and has no other complaints concerns at this time Exam Narrative Exam Narrative: Fatigued appearing female sitting up in the edge of the bed and moderate distress due to pain, high flow nasal cannula in place though this is primarily for work of breathing she is only on 35% FiO2, awake, alert, oriented x 4, heart regular rate rhythm, lungs with expiratory wheezing throughout and diminished in bilateral bases, abdomen soft, nontender, with no protruding hernia noted Objective Last Vital Signs Temp 100.2 F H 09/18/23 07:21 Pulse 109 H 09/18/23 07:21 Resp 18 09/18/23 07:21 BP 132/76 09/18/23 07:21 Pulse Ox 92 09/18/23 07:21 Laboratory Results - last 24 hr 09/17/23 09/17/23 09/17/23 11:00 11:40 14:26 WBC 15.32 H RBC 4.77 Hgb 13.9 Hct 43.5 MCV 91 MCH 29.1 MCHC 32.0 RDW 13.0 Plt Count 380 MPV 9.7 Immature Gran % 2.5 Neutrophils % 76.1 Lymphocytes % 8.7 Monocytes % 11.9 Eosinophils % 0.3 Basophils % 0.5 Nucleated RBC % 0.0 Absolute Neutrophils 11.66 H Absolute Lymphocytes 1.33 Absolute Monocytes 1.82 H Absolute Eosinophils 0.05 Absolute Basophils 0.08 RBC Morphology Normal APTT VBG pH 7.44 H VBG pCO2 43 VBG pO2 65 VBG HCO3 29 H VBG Total CO2 26 VBG O2 Saturation 94 VBG Base Excess 5 H VBG Lactate 1.0 Sodium 132 L Potassium 4.1 Chloride 95 L Carbon Dioxide 28.3 Anion Gap 8.7 BUN 8 Creatinine 1.1 H Est GFR (CKD-EPI 2020) 56.11 Glucose 108 H Calcium 8.6 Magnesium 1.8 Total Bilirubin 0.5 AST 46 H ALT 32 Alkaline Phosphatase 72 Troponin I < 50 Total Protein 7.7 Albumin 3.2 L Urine Color Yellow Urine Clarity Clear Urine pH 6.0 Ur Specific [place] 1.010 Urine Protein Negative Urine Ketones Negative Urine Blood Small H Urine Nitrite Negative Urine Bilirubin Negative Urine Urobilinogen 0.2 Ur Leukocyte Esterase Moderate H Urine RBC 5-10 H Urine WBC 20-50 H Ur Epithelial Cells Moderate Urine Crystals Negative Urine Bacteria Few Urine Casts Negative Urine Mucus Negative Ur Culture Indicated? No/Sq. Contamination Urine Glucose Negative Urine Opiates Screen Positive A Urine Methadone Screen Negative Ur Barbiturates Screen Negative Ur Tricyclics Screen Negative Ur Amphetamines Screen Negative U Benzodiazepines Scrn Negative Urine Cocaine Screen Negative Ur THC Screen Negative COVID-19 Source Nasal/Nares SARS-CoV-2 (PCR) Negative 09/17/23 09/17/23 09/18/23 15:29 18:35 02:00 WBC RBC Hgb Hct MCV MCH MCHC RDW Plt Count MPV Immature Gran % Neutrophils % Lymphocytes % Monocytes % Eosinophils % Basophils % Nucleated RBC % Absolute Neutrophils Absolute Lymphocytes Absolute Monocytes Absolute Eosinophils Absolute Basophils RBC Morphology APTT 30.0 > 155.0 H* VBG pH VBG pCO2 VBG pO2 VBG HCO3 VBG Total CO2 VBG O2 Saturation VBG Base Excess VBG Lactate Sodium Potassium Chloride Carbon Dioxide Anion Gap BUN Creatinine Est GFR (CKD-EPI 2020) Glucose Calcium Magnesium Total Bilirubin AST ALT Alkaline Phosphatase Troponin I < 50 Total Protein Albumin Urine Color Urine Clarity Urine pH Ur Specific [place] Urine Protein Urine Ketones Urine Blood Urine Nitrite Urine Bilirubin Urine Urobilinogen Ur Leukocyte Esterase Urine RBC Urine WBC Ur Epithelial Cells Urine Crystals Urine Bacteria Urine Casts Urine Mucus Ur Culture Indicated? Urine Glucose Urine Opiates Screen Urine Methadone Screen Ur Barbiturates Screen Ur Tricyclics Screen Ur Amphetamines Screen U Benzodiazepines Scrn Urine Cocaine Screen Ur THC Screen COVID-19 Source SARS-CoV-2 (PCR) 09/18/23 06:22 WBC 11.98 H RBC 4.37 Hgb 13.1 Hct 40.4 MCV 92 MCH 30.0 MCHC 32.4 RDW 13.1 Plt Count 341 MPV 9.9 Immature Gran % Neutrophils % Lymphocytes % Monocytes % Eosinophils % Basophils % Nucleated RBC % Absolute Neutrophils Absolute Lymphocytes Absolute Monocytes Absolute Eosinophils Absolute Basophils RBC Morphology APTT VBG pH VBG pCO2 VBG pO2 VBG HCO3 VBG Total CO2 VBG O2 Saturation VBG Base Excess VBG Lactate Sodium 137 Potassium 4.3 Chloride 101 Carbon Dioxide 26.0 Anion Gap 10.0 BUN 12 Creatinine 0.8 Est GFR (CKD-EPI 2020) 82.23 Glucose 86 Calcium 8.2 L Magnesium 2.5 H Total Bilirubin AST ALT Alkaline Phosphatase Troponin I Total Protein Albumin Urine Color Urine Clarity Urine pH Ur Specific [place] Urine Protein Urine Ketones Urine Blood Urine Nitrite Urine Bilirubin Urine Urobilinogen Ur Leukocyte Esterase Urine RBC Urine WBC Ur Epithelial Cells Urine Crystals Urine Bacteria Urine Casts Urine Mucus Ur Culture Indicated? Urine Glucose Urine Opiates Screen Urine Methadone Screen Ur Barbiturates Screen Ur Tricyclics Screen Ur Amphetamines Screen U Benzodiazepines Scrn Urine Cocaine Screen Ur THC Screen COVID-19 Source SARS-CoV-2 (PCR) Time Spent with Patient Time Spent with Patient: >50 minutes Time was spent: preparing to see the patient(eg.review tests), obtaining and/or reviewing separately otained hiistory, ordering medications,tests, procedures, referring, communicating with other health respite care provider, indepentently interpreting results, counseling the patient and care coordination
--- NOTE | 2023-09-18 09:21 | PDOC.CMIN ---
Date of service: 09/18/23 Time of Service: 09:21 Care Management Initial Assmt Initial Assessment REASON FOR HOSPITALIZATION:: respiratory failure with hypoxia PREVIOUS FUNCTIONAL STATUS/SOCIAL/FAMILY SUPPORTS:: Afsaneh lives in a single family home in [place] with her daughter Dodie, 2 sons and a granddaughter. 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 She is disabled but is independent at baseline. Afsaneh does not receive any services at home. CURRENT FUNCTIONAL STATUS:: Afsaneh was sitting up in bed when CM met with her. Her son and daughter were present and participated in the conversation. Afsaneh appeared very short of breath which seemed worse with coughing. She does not currently have home oxygen but her son stated that he believes she will need it at this point. She checks her oxygen saturation levels at home and found hers to be in the low 80s just prior to coming to the hospital. Afsaneh remains tachycardic and still had a temperature of 37.9 this morning. She was on high flow nasal oxygen but is now saturating in the low 90s on 1-2 L/min of nasal O2. ADVANCE DIRECTIVES:: none on file Has patient been provided with info about the portal/API?: Yes Did the patient sign up for the portal?: Yes CODE STATUS:: Full Code INSURANCE COVERAGE / FINANCIAL ISSUES:: Medicaid CURRENT HOME/COMMUNITY SERVICES/EQUIPMENT:: uses a shower chair PRIMARY CARE PHYSICIAN:: Soraida Sims POTENTIAL DISCHARGE NEEDS:: follow up with PCP and plan of care PATIENT/FAMILY EDUCATION NEEDS:: Review of discharge instructions, activity, limitations, follow up plan, discuss Ask Me Three TRANSPORTATION:: Via private vehicle by family. PLAN:: Anticipate Afsaneh will be discharged home with no new services when medically stable. She will follow her plan of care as prescribed and follow up with her community providers. Afsaneh will transport via private vehicle with family. CM will follow and continue to evaluate discharge needs. PFSH All Active Problems (Updated 09/17/23 @ 17:46 by Shon Adhikari MD) Pulmonary embolism (Chronic) Abdominal hernia (Acute) Hypoxia (Acute) Acute exacerbation of chronic obstructive pulmonary disease (COPD) (Acute) Acute respiratory failure with hypoxia (Acute) Constipation due to opioid therapy (Acute) Bright red rectal bleeding (Acute) Chronic constipation without overflow incontinence (Acute) S/P colostomy takedown (Acute) Chronic narcotic dependence (Acute) COPD (chronic obstructive pulmonary disease) (Chronic) Anxiety (Chronic) Cervicalgia (Acute) Tendonitis of long head of biceps brachii of right shoulder (Acute) Degenerative arthritis of cervical spine (Acute) Arthritis of left glenohumeral joint (Acute) HPV (human papilloma virus) infection (Acute) IBS (irritable bowel syndrome) (Chronic) Skin lesion (Acute) Low back pain (Acute) Lumbar radiculopathy (Acute) Abdominal pain (Acute) Abdominal bloating (Acute) Hx of allergic reaction (Acute) Closed fracture of right distal fibula (Acute) Shoulder pain (Acute) Trigger finger of all digits of both hands (Acute) Arthritis of right glenohumeral joint (Acute) Spondylosis, cervical (Acute) Carpal tunnel syndrome, bilateral (Acute) Shoulder pain, bilateral (Acute) Effusion of left knee (Acute) Situational depression (Chronic) Myalgia (Acute) Generalized osteoarthritis of multiple sites (Acute) Patellar tendinitis (Acute) Sinusitis (Acute) Mild memory disturbance (Acute) Visit for screening mammogram (Acute) Frequency of urination (Acute) Dysuria (Acute) Ankle joint disorder (Acute) Hypoglycemia (Acute) Sinusitis, acute (Acute) Medical History (Updated 09/17/23 @ 17:46 by Shon Adhikari MD) Former smoker Abscess of sigmoid colon due to diverticulitis Personal history of nicotine dependence Diverticulosis HPV (human papilloma virus) anogenital infection Pneumonia History of paresthesia Supraclavicular lymphadenopathy Tendonitis Sleep apnea Diaphoresis Dyspnea Nocturnal hypoxia COVID Hematemesis ADHD Duodenitis Gastritis GERD (gastroesophageal reflux disease) Exposure to COVID-19 virus Liver lesion Grief reaction Hemangioma of liver Seasonal allergic reaction Constipation, chronic Cervical spinal stenosis Hyperlipidemia Tobacco use Minimally displaced zone I fracture of sacrum, sequela Edentulous Reactive inflammatory arthritis Blood in stool AGATHA III (cervical intraepithelial neoplasia III) Surgical History History of colostomy reversal (~12/2022) S/P exploratory laparotomy S/P tonsillectomy S/P colonoscopy History of esophagogastroduodenoscopy (EGD) (~09/2020) History of colonoscopy (~11/2022) 11/2022, 07/05/2018 Trigger Finger release several Arthroscopy, Shoulder Family History Mother Personal history of malignant neoplasm uterine, mets to colon Social History Smoking/Tobacco Use Status: Former Tobacco Use Quit Date: 05/14/22 Smoking risk assessment performed?: Yes Alcohol Intake: current Alcohol Intake frequency: a few times a month Alcohol type: wine Drug use: Never Substance use type: does not use Housing: house Current gender identity: female Do you feel safe at home: Yes Do you feel safe in your relationship?: Yes Additional Social history: Live with daughter SDOH(Care Management) Screening Will the Patient Participate in the Screening?: Unable to obtain Do you worry about having a steady place to live?: no Problems where you live: mold, lack of heat, water leaks, unsafe ashli/stairs and other In the past 12 months, have you had to go without electric, gas, oil or water in your home?: no Have you or anyone in your house had to go without enough food to eat?: no Has lack of transportation kept you from medical appointments or from doing things needed for daily living?: yes Has anyone in your support network made you feel unsafe for any reason?: no Social Determinants of Health Comments([facility] Details): previously completed Health Related Social Needs Health related social needs: inadequate housing(Z59.1) and transportation insecurity(Z59.82)
[2023-09-18 10:23] LABS: PTT Activated 97.7 sec (23.6-32.8)
[2023-09-18] MEDS: Docusate Sodium 100 MG CAP PO (16:05)
[2023-09-18] MEDS: Polyethylene Glycol 3350 17 GM PACKET PO (16:05)
[2023-09-18] MEDS: Ibuprofen 600 MG TAB PO (18:37)
[2023-09-18] MEDS: Psyllium PKT 1 EACH PO (20:12)
[2023-09-18 23:24] LABS: PTT Activated 69.9 sec (23.6-32.8)
[2023-09-19] VITALS (13 sets, daily range): BP systolic 116–141; BP diastolic 67–76; PULSE 83–105; RESP 2–20; TEMP 35.7–36.7; O2SAT 90–98
[2023-09-19] MEDS: Ibuprofen 600 MG TAB PO ×3 (02:05→17:51)
[2023-09-19 05:12] LABS: HGB 12.9 g/dL (11.2-15.7); MCH 29.7 pg (27.0-33.0); MCHC 31.5 % (32.0-36.0); MCV 94 fL (80-95); MPV 9.5 fL (8.0-11.0); Platelet Count 293 10^3/uL (130-400); RBC 4.35 10^6/uL (3.93-5.22); RDW 13.1 % (11.7-14.6); RDW-SD 45.1 fL
[2023-09-19 05:22] LABS: BUN 11 mg/dL (7-18); CREATININE 0.9 mg/dL (0.55-1.02); Calcium 8.1 mg/dL (8.5-10.1); Chloride 102 mmol/L (98-107); Estimated GFR 71.39 (mL/min/1.73m2); Glucose 98 mg/dL (74-106); Sodium 139 mmol/L (136-145)
[2023-09-19 05:35] LABS: PTT Activated 64.4 sec (23.6-32.8)
[2023-09-19] MEDS: Albuterol/Ipratropium 3 ML UPD VIAL UPD ×4 (05:59→23:53)
[2023-09-19] MEDS: Heparin in 0.45% NaCl 25,000 UNIT/250 ML BAG 10 UNIT IV (08:36)
[2023-09-19] MEDS: Psyllium PKT 1 EACH PO (08:41)
[2023-09-19] MEDS: levoFLOXacin 500 MG, levoFLOXacin 250 MG 750 MG PO (08:43)
[2023-09-19] MEDS: Normal Saline Flush 10 ML SYR IVP ×2 (08:43→19:24)
[2023-09-19] MEDS: predniSONE 20 MG TAB 40 MG PO (08:43)
[2023-09-19] MEDS: oxyCODONE 10 MG TAB PO ×2 (08:47→15:21)
[2023-09-19] MEDS: Benzonatate 100 MG CAP PO ×2 (08:48→15:21)
--- NOTE | 2023-09-19 15:58 | W.PM.PROGNOT ---
Date of Service Date of service: 09/19/23 Time of Service: 15:58 Assessment and Plan Assessment and plan (1) Acute respiratory failure with hypoxia: Status: Acute Assessment and plan: - Patient presented with hypoxia and given diminished breath sounds and wheezing determined to be secondary to COPD exacerbation as well as PE that was noted on CTA -was started on heparin drip for 48hrs and has since been transitioned to eliquis 5mg BID -She was given 125 of methylprednisolone and breathing treatments in the emergency department significant improvement, and continues require 2 L nasal cannula to maintain oxygen saturation greater than 88% -Will continue prednisone 40 mg daily -Every 6 hours scheduled nebulizer treatments with every 2 hours as needed albuterol for ongoing shortness of breath -Also given that patient was complaining of increase sputum production she was started on Levaquin which will be continued (2) Acute exacerbation of chronic obstructive pulmonary disease (COPD): Status: Acute Assessment and plan: - As noted above (3) Pulmonary embolism: Status: Chronic Assessment and plan: - As noted above (4) Chronic narcotic dependence: Status: Acute Assessment and plan: - Restarted home Oxy 10 mg 4 times daily as patient is no longer somnolent and is an pain at this time (5) Anxiety: Status: Chronic (6) Degenerative arthritis of cervical spine: Status: Acute Qualifiers: Spinal osteoarthritis complication: with radiculopathy Qualified Code(s): M47.22 - Other spondylosis with radiculopathy, cervical region Subjective Subjective Interval history since last seen: Patient states that she feels better today and is happy that she is off supplemental oxygen. However, she continues to have coughing fits for which she feels that she would be ready for discharge tomorrow. Exam Narrative Exam Narrative: Fatigued appearing female sitting up in the edge of the bed in no acute distress, awake, alert, oriented x 4, heart regular rate rhythm, lungs with expiratory wheezing throughout and diminished in bilateral bases, abdomen soft, nontender, with no protruding hernia noted Objective Last Vital Signs Temp 97.3 F L 09/19/23 15:17 Pulse 97 H 09/19/23 15:17 Resp 19 09/19/23 15:17 BP 130/73 09/19/23 15:17 Pulse Ox 91 L 09/19/23 15:17 Laboratory Results - last 24 hr 09/18/23 09/18/2324 16:17 23:00 05:05 WBC 9.70 RBC 4.35 Hgb 12.9 Hct 41.0 MCV 94 MCH 29.7 MCHC 31.5 L RDW 13.1 Plt Count 293 MPV 9.5 APTT 93.0 H* 69.9 H 64.4 H Sodium 139 Potassium 4.0 Chloride 102 Carbon Dioxide 31.0 Anion Gap 6.0 BUN 11 Creatinine 0.9 Est GFR (CKD-EPI 2020) 71.39 Glucose 98 Calcium 8.1 L Time Spent with Patient Time Spent with Patient: >50 minutes Time was spent: preparing to see the patient(eg.review tests), obtaining and/or reviewing separately otained hiistory, ordering medications,tests, procedures, referring, communicating with other health auto care center manager, indepentently interpreting results, counseling the patient and care coordination
[2023-09-19] MEDS: Apixaban 5 MG TAB PO (19:10)
[2023-09-20] VITALS (14 sets, daily range): BP systolic 123–139; BP diastolic 59–90; PULSE 72–107; RESP 2–21; TEMP 35.6–36.6; O2SAT 88–98
--- NOTE | 2023-09-20 | DI.US_ITS ---
Exam(s) US EXTREMITY VENOUS BI EXAM: US EXTREMITY VENOUS BI CLINICAL HISTORY: recent P.E.. TECHNIQUE: Bilateral lower extremity venous ultrasound performed using grayscale, color-flow, and sp ectral Doppler analysis. COMPARISON: No exams were available for comparison FINDINGS: The bilateral common femoral, femoral and popliteal veins demonstrate normal compressibility, augment ation, and color Doppler. The posterior tibial veins are patent. IMPRESSION: Right: Negative for DVT Left: Negative for DVT DATA REPOSITORY:
[2023-09-20] MEDS: MORPHine 2 MG/ML SYR IVP (00:28)
[2023-09-20] MEDS: Normal Saline Flush 10 ML SYR IVP ×3 (00:29→20:50)
[2023-09-20] MEDS: Ibuprofen 600 MG TAB PO (04:55)
[2023-09-20] MEDS: Albuterol/Ipratropium 3 ML UPD VIAL UPD ×4 (05:35→20:08)
[2023-09-20 06:45] LABS: HCT 41.4 % (36.0-46.0); HGB 13.1 g/dL (11.2-15.7); MCH 29.6 pg (27.0-33.0); MCHC 31.6 % (32.0-36.0); MCV 94 fL (80-95); Platelet Count 296 10^3/uL (130-400); RBC 4.42 10^6/uL (3.93-5.22); RDW 13.2 % (11.7-14.6); RDW-SD 45.2 fL; WBC 7.82 10^3/uL (4.4-10.8)
[2023-09-20 06:53] LABS: PTT Activated 29.9 sec (23.6-32.8)
[2023-09-20] MEDS: levoFLOXacin 500 MG, levoFLOXacin 250 MG 750 MG PO (08:12)
[2023-09-20] MEDS: predniSONE 20 MG TAB 40 MG PO (08:12)
[2023-09-20] MEDS: Pantoprazole 40 MG TABCR PO (08:17)
[2023-09-20] MEDS: Apixaban 5 MG TAB 10 MG PO ×2 (08:18→20:47)
--- NOTE | 2023-09-20 09:13 | PDOC.CMPRO ---
Date of service: 09/20/23 Time of Service: 09:13 Care Management Progress Note Progress Note Text Progress Note Text: S/O: Afsaneh was sitting positionally awkward in her chair when CM met with her. Per pt, she just came back from getting an US and is in pain everywhere and coughing makes her feel like her hernia is going to pop right out. Afsaneh reports that the last 2 nights she's had episodes where she can't catch her breath. CM discussed with MD and RN. A: 62 year old female admitted to [facility] on 09/17/23 with respiratory failure with hypoxia P: Anticipate Afsaneh will be discharged home with no new services when medically stable. She will follow her plan of care as prescribed and follow up with her community providers. Afsaneh will transport via private vehicle with family. CM will follow and continue to evaluate discharge needs. SDOH(Care Management) Screening Will the Patient Participate in the Screening?: Unable to obtain Do you worry about having a steady place to live?: no Problems where you live: mold, lack of heat, water leaks, unsafe ashli/stairs and other In the past 12 months, have you had to go without electric, gas, oil or water in your home?: no Have you or anyone in your house had to go without enough food to eat?: no Has lack of transportation kept you from medical appointments or from doing things needed for daily living?: yes Has anyone in your support network made you feel unsafe for any reason?: no Social Determinants of Health Comments(SDOH Details): previously completed Health Related Social Needs Health related social needs: inadequate housing(Z59.1) and transportation insecurity(Z59.82)
[2023-09-20] MEDS: oxyCODONE 10 MG TAB PO ×2 (11:29→20:48)
--- NOTE | 2023-09-20 15:17 | NUR.NOTE ---
Have not heard from Hospitalist of today. Pt appears comfortable in her recliner, getting up to go look out the window intermittently with her eclipse glasses. She c/o pain all over that never gets better than a 5/10, reactive arthritis is what she calls it. She is not SOB talking to nursing. Will monitor. Nursing Note:
--- NOTE | 2023-09-20 15:39 | PHA.REVIEW2 ---
Pharmacy Admission Review Admission Clinical Review Admission Pharmacy Review: Abdominal hernia (Acute) Hypoxia (Acute) Acute exacerbation of chronic obstructive pulmonary disease (COPD) (Acute) Acute respiratory failure with hypoxia (Acute) Chronic narcotic dependence (Acute) Degenerative arthritis of cervical spine (Acute) Abdominal pain (Acute) acetaminophen [From Mapap (acetaminophen)] Allergy (Severe, Verified 09/17/23 11:42) Hives bupropion Allergy (Intermediate, Verified 09/17/23 11:42) Other (See Comment) cephalexin [Cephalexin] Allergy (Intermediate, Verified 09/17/23 11:42) Skin Rash Penicillins Allergy (Intermediate, Verified 09/17/23 11:42) rash with all cillins ampicillin Allergy (Mild, Verified 09/17/23 11:42) Skin Rash atorvastatin Allergy (Mild, Verified 09/17/23 11:42) Other (See Comment) cefprozil [From Cefzil] Allergy (Mild, Verified 09/17/23 11:42) Skin Rash Cephalosporins Allergy (Mild, Verified 09/17/23 11:42) Hives clindamycin Allergy (Mild, Verified 09/17/23 11:42) Skin Rash doxycycline Allergy (Mild, Verified 09/17/23 11:42) Skin Rash varenicline [From Chantix] Allergy (Mild, Verified 09/17/23 11:42) Other (See Comment) cefuroxime [From Ceftin] Allergy (Verified 09/17/23 11:42) Hives clarithromycin [From Biaxin] Allergy (Verified 09/17/23 11:42) rash/hives duloxetine [From Cymbalta] Adverse Reaction (Intermediate, Verified 09/17/23 11:42) made me feel very weird linaclotide [From Linzess] Adverse Reaction (Mild, Verified 09/17/23 11:42) Diarrhea nicotine [From Nicorette] Adverse Reaction (Mild, Verified 09/17/23 11:42) Nauseaous adhesive tape Adverse Reaction (Unknown, Verified 09/17/23 11:42) Skin Rash banana Adverse Reaction (Verified 09/17/23 11:42) abd bloating codeine Adverse Reaction (Verified 09/17/23 11:42) sick hydrocodone [From Vicodin] Adverse Reaction (Verified 09/17/23 11:42) cold sweats, vomiting medipore tape Allergy (Severe, Uncoded 09/17/23 11:42) skin blisters black hair dye Allergy (Intermediate, Uncoded 09/17/23 11:42) Hives eggs Allergy (Uncoded 09/17/23 11:42) bloating stoma adhesive Adverse Reaction (Severe, Uncoded 09/17/23 11:42) bleeding rash Resuscitation Status Full Code Height 5 ft 1 in Weight 88.2 kg Pharmacy Admission Review Renal Dosing Renal Dosing: BUN 11 mg/dL (7-18) 09/19/23 05:05 Creatinine 0.9 mg/dL (0.55-1.02) 09/19/23 05:05 Medications needing adjustments: Reviewed (CrCl 57.38 mL/min) Anticoagulation Anticoagulation: Hgb 13.1 g/dL (11.2-15.7) 09/20/23 06:10 Hct 41.4 % (36.0-46.0) 09/20/23 06:10 Plt Count 296 10^3/uL (130-400) 09/20/23 06:10 Creatinine 0.9 mg/dL (0.55-1.02) 09/19/23 05:05 Therapeutic Anticoagulation: Reviewed Medications: Apixaban (10mg BID (received 2 days of heparin infusion)) Opiate Usage Evaluate Pain Scale/Pains Meds: Reviewed (PRN oxycodone) Scheduled Bowel Reg ordered if on Opiates?: No (PRN Miralax/docusate) Relevant Labs Relevant Labs: Sodium 139 mmol/L (136-145) 09/19/23 05:05 Potassium 4.0 mmol/L (3.5-5.1) 09/19/23 05:05 Chloride 102 mmol/L (98-107) 09/19/23 05:05 Magnesium 2.5 mg/dL (1.8-2.4) H 09/18/23 06:22 Electrolytes, C-Reactive P, ESR: Reviewed Cardiac Review Cardiac Review: Troponin I < 50 ng/L (< or =60) 09/17/23 15:29 BP, HR, EF%: Reviewed (BP 133/59 and HR 91, Ox 90) QTc Review QTc: Reviewed (423 from 09/17/23) IV to PO Switch IV Medications: Reviewed Home Meds Home Med List reviewed: Intervened Relevent Home Meds Not ordered & why?: Advair, gabapentin (has not filled since 04/2023), methocarbamol, methylphenidate and pramipexole. Reached out to provider to make sure they are aware. Current Meds Current Medication Order Review: Reviewed Pharmacy Antibiotic Review Pharmacy Antibiotic Activity: C/S review and Reviewed, no change Comments: Patient is on levofloxacin PO, day 3. Urine and blood cultures showing no growth at 72 hours.
--- NOTE | 2023-09-20 17:28 | PGE_ITS ---
Date of Service Date of service: 09/20/23 Time of Service: 17:28 Assessment and Plan Assessment and plan (1) Acute exacerbation of chronic obstructive pulmonary disease (COPD): Status: Acute Assessment and plan: continue prednisone, change DuoNeb to qid rather than q6h (this way we are not waking her up at night to give her aerosols); She needs to get on a LAMA and LABA and ICS. She was on Advair at home; I am not sure why this was not renewed on admisssion. I also added Spiriva today. will get exercise oximetry in the morning to see if she qualifies for home oxygen. I will also ask for pulmonary consult in the morning. (2) Acute respiratory failure with hypoxia: Status: Acute Assessment and plan: improving w/ treatment of her COPD. Now on RA w/ SPO2 of 88 to 90%. will check exercise oximetry tomorrow; possible dc home tomorrow. (3) Pulmonary embolism: Status: Chronic Assessment and plan: cont. apixaban 10 mg bid x 7 days then 5 mg bid x 3 months Qualifiers: Pulmonary embolism type: multiple subsegmental (without acute cor pulmonale) Qualified Code(s): I26.94 - Multiple subsegmental pulmonary emboli without acute cor pulmonale (4) Anxiety: Status: Chronic Assessment and plan: add sertraline to her meds. Subjective Subjective Interval history since last seen: Afsaneh states that she continues to have episodes like she can not catch her breath. She is being treated for COPD exacerbation w/ bronchodilators and st eroids. She has an increased component of anxiety and uses oxycodone and ativan at home for her chronic pain and anxiety but is not on any SSRI. She was also found on CTA of her chest to have a questionable PE in RLL vessels. she was treated w/ systemic unfractionated heparin x 48h and put on apixaban last night, although she was only put on 5 mg bid ( I have since changed to 10 mg bid). I told Afsaneh that I do not believe her intermittent spells are d/t her PE givne the small size. I do think she has moderate to severe COPD and she has an overlay of anxiet which exacerbates her dyspnea. Exam Narrative Exam Narrative: Middle aged white female sitting up talking at her bedside to her female friend she seems to be able to carry on lengthy conversation w/out stopping to catch her breath No accessory respiratory muscle use LUngs: diffuse fine end expiratory wheezing; no rhonchi or rales RRR Abdomen: benign Extremities: no edema Objective Last Vital Signs Temp 36.0 C L 09/20/23 16:12 Pulse 80 09/20/23 16:12 Resp 18 09/20/23 16:12 BP 139/80 09/20/23 16:12 Pulse Ox 90 L 09/20/23 16:12 Laboratory Results - last 24 hr 09/20/23 06:10 WBC 7.82 RBC 4.42 Hgb 13.1 Hct 41.4 MCV 94 MCH 29.6 MCHC 31.6 L RDW 13.2 Plt Count 296 MPV 10.0 APTT 29.9 Time Spent with Patient Time Spent with Patient: 25-34 minutes Time was spent: preparing to see the patient(eg.review tests), ordering medications,tests, procedures, referring, communicating with other health clinical manager home care, indepentently interpreting results, counseling the patient and care coordination
[2023-09-20] MEDS: Methylphenidate 10 MG TAB PO (20:47)
[2023-09-20] MEDS: Docusate Sodium 100 MG CAP PO (20:50)
[2023-09-20] MEDS: Tiotropium Bromide-Respimat 10 PUFF INH 2 PUFF IH (21:19)
[2023-09-20] MEDS: Budesonide/Formoterol 160/4.5 6 GM 60 PUFF INH IH (21:20)
[2023-09-21] VITALS (10 sets, daily range): BP systolic 130–157; BP diastolic 79–97; PULSE 86–107; RESP 5–24; TEMP 36.3–36.6; O2SAT 86–92
--- NOTE | 2023-09-21 07:19 | PUCON_ITS ---
General Date Of Service Date of service: 09/21/23 Time of Service: 07:20 Assessment and Plan Assessment and plan (1) Pulmonary embolism: Status: Chronic Qualifiers: Pulmonary embolism type: multiple subsegmental (without acute cor pulmonale) Qualified Code(s): I26.94 - Multiple subsegmental pulmonary emboli without acute cor pulmonale (2) Acute exacerbation of chronic obstructive pulmonary disease (COPD): Status: Acute (3) Acute respiratory failure with hypoxia: Status: Acute Assessment and plan: This is a 62 yo admitted for both a COPD exacerbation and subsegmental PE. I recommend a prednisone taper as outlined below on discharge for the COPD exacerbation. I agree she should be on ICS/LABA/LAMA therapy given her hospitalization, so recommend discharge on Trelegy to aid in compliance. There is no evidence of a pneumonia so recommend stopping Levaquin. The PE's are small and unlikely to cause any hemodynamic compromise. She had negative troponins. This likely represents a low risk PE. Recommend 3-6 months of treatment. COPD Exacerbation - prednisone 40mg to end today, 30mg for 3 days, 20mg for 3 days, 10mg for 3 days, 5mg for 3 days - stop Levaquin - no need for other antibiotics - recommend she be discharged on Trelegy 100 - will set up another outpatient appointment for her to see pulm PE - continue Eliquis for 3-6 months therapy Hypoxia - ambulatory pulse ox prior to discharge to assess exertional O2 need History of Present Illness Narrative: This is a 62 yo admitted for COPD exacerbation and a subsegmental PE in the RLL. She is on Eliquis and has been treated with prednisone, Levaquin, nebs and inhalers. On my assessment of the chest imaging there is no pneumonia present. There are small subsegmental clots in the RLL pulmonary arteries. She is saturating well on room air, although did require oxygen on admission. She has had PFT's completed in the past as below: Spirometry Date FEV1/FVC LLN FEV1 % LLN FVC % LLN Comments 06/15/22 64 67 1.21 56 1.61 1.87 67 2.16 + BD Date TLC % LLN RV % DLCO LLN sGaw % Pressures 06/15/22 5.36 119 3.42 2.87 154 17.60 13.49 0.09 43 She has been referred to my clinic in the past however never attended a visit. She continued to feel very dyspneic but does feel as though she has been improving since she has been admitted. Review of Systems All systems reviewed & are unremarkable except as noted in HPI and below PFSH All Active Problems (Updated 09/20/23 @ 23:12 by Carmelo Salvador MD) Pulmonary embolism (Chronic) Abdominal hernia (Acute) Hypoxia (Acute) Acute exacerbation of chronic obstructive pulmonary disease (COPD) (Acute) Acute respiratory failure with hypoxia (Acute) Constipation due to opioid therapy (Acute) Bright red rectal bleeding (Acute) Chronic constipation without overflow incontinence (Acute) S/P colostomy takedown (Acute) Chronic narcotic dependence (Acute) COPD (chronic obstructive pulmonary disease) (Chronic) Anxiety (Chronic) Cervicalgia (Acute) Tendonitis of long head of biceps brachii of right shoulder (Acute) Degenerative arthritis of cervical spine (Acute) Arthritis of left glenohumeral joint (Acute) HPV (human papilloma virus) infection (Acute) IBS (irritable bowel syndrome) (Chronic) Skin lesion (Acute) Low back pain (Acute) Lumbar radiculopathy (Acute) Abdominal pain (Acute) Abdominal bloating (Acute) Hx of allergic reaction (Acute) Closed fracture of right distal fibula (Acute) Shoulder pain (Acute) Trigger finger of all digits of both hands (Acute) Arthritis of right glenohumeral joint (Acute) Spondylosis, cervical (Acute) Carpal tunnel syndrome, bilateral (Acute) Shoulder pain, bilateral (Acute) Effusion of left knee (Acute) Situational depression (Chronic) Myalgia (Acute) Generalized osteoarthritis of multiple sites (Acute) Patellar tendinitis (Acute) Sinusitis (Acute) Mild memory disturbance (Acute) Visit for screening mammogram (Acute) Frequency of urination (Acute) Dysuria (Acute) Ankle joint disorder (Acute) Hypoglycemia (Acute) Sinusitis, acute (Acute) Medical History (Updated 09/20/23 @ 23:12 by Carmelo Salvador MD) Former smoker Abscess of sigmoid colon due to diverticulitis Personal history of nicotine dependence Diverticulosis HPV (human papilloma virus) anogenital infection Pneumonia History of paresthesia Supraclavicular lymphadenopathy Tendonitis Sleep apnea Diaphoresis Dyspnea Nocturnal hypoxia COVID Hematemesis ADHD Duodenitis Gastritis GERD (gastroesophageal reflux disease) Exposure to COVID-19 virus Liver lesion Grief reaction Hemangioma of liver Seasonal allergic reaction Constipation, chronic Cervical spinal stenosis Hyperlipidemia Tobacco use Minimally displaced zone I fracture of sacrum, sequela Edentulous Reactive inflammatory arthritis Blood in stool AGATHA III (cervical intraepithelial neoplasia III) Surgical History History of colostomy reversal (~12/2022) S/P exploratory laparotomy S/P tonsillectomy S/P colonoscopy History of esophagogastroduodenoscopy (EGD) (~09/2020) History of colonoscopy (~11/2022) 11/2022, 07/05/2018 Trigger Finger release several Arthroscopy, Shoulder Family History Mother Personal history of malignant neoplasm uterine, mets to colon Social History Smoking/Tobacco Use Status: Former Tobacco Use Quit Date: 05/14/22 Smoking risk assessment performed?: Yes Alcohol Intake: current Alcohol Intake frequency: a few times a month Alcohol type: wine Drug use: Never Substance use type: does not use Housing: house Current gender identity: female Do you feel safe at home: Yes Do you feel safe in your relationship?: Yes Additional Social history: Live with daughter Visit Medication and Allergies Active Medications Generic Name Dose Route Start Last Admin Trade Name Freq PRN Reason Stop Dose Admin Albuterol Sulfate 2.5 mg 09/17/23 15:35 09/18/23 01:57 Albuterol 2.5 Mg/3 Ml Inh Soln Vial UPD 2.5 mg Q2H PRN PRN Administration Albuterol/Ipratropium 3 ml 09/20/23 20:00 09/20/23 20:08 Albuterol/Ipratropium 3 Ml Upd Vial UPD 3 ml QID KHANH Administration Apixaban 10 mg 09/20/23 08:30 09/20/23 20:47 Apixaban 5 Mg Tab PO 09/27/23 08:29 10 mg BID KHANH Administration Benzonatate 100 mg 09/18/23 14:59 09/19/23 15:21 Benzonatate 100 Mg Cap PO 100 mg TID PRN PRN Administration coug Budesonide/Formoterol Fumarate 2 puff 09/20/23 20:00 09/20/23 21:20 Budesonide/Formoterol 160/4.5 6 Gm 60 Puff Inh IH 2 puffs BID [facility] Administration Docusate Sodium 100 mg 09/17/23 15:35 09/18/23 16:05 Docusate Sodium 100 Mg Cap PO 100 mg TID PRN PRN Administration Docusate Sodium 100 mg 09/20/23 20:00 09/20/23 20:50 Docusate Sodium 100 Mg Cap PO 100 mg TID [facility] Administration Fluticasone Propionate 0 gm 09/20/23 18:05 Fluticasone Nasal [place] 16 Gm Btl NS DAILY PRN PRN Gabapentin 300 mg 09/21/23 08:30 Gabapentin 300 Mg Cap PO BID@0830,1200 [facility] IV Miscellaneous Supplies 1 each 09/17/23 15:35 Iv Access IV DIRECTED [facility] Levofloxacin 500 mg/ 750 mg 09/18/23 08:30 09/20/23 08:12 Levofloxacin 250 mg PO 750 mg QAM [facility] Administration Methocarbamol 750 mg 09/20/23 18:05 Methocarbamol 750 Mg Tab PO QID PRN PRN pain (scale score 4-6) Methylphenidate HCl 10 mg 09/20/23 20:00 09/20/23 20:47 Methylphenidate 10 Mg Tab PO 10 mg BID [facility] Administration Naloxone HCl 4 mg 09/20/23 18:05 Naloxone Nasal 4 Mg/[place] Inhn-Vdh NS Q2M PRN Oxycodone HCl 10 mg 09/18/23 07:57 09/20/23 20:48 Oxycodone 10 Mg Tab PO 10 mg QID PRN PRN Administration Pantoprazole Sodium 40 mg 09/21/23 07:30 Pantoprazole 40 Mg Tabcr PO DAILY@0730 [facility] Polyethylene Glycol 17 gm 09/17/23 15:35 09/18/23 16:05 Polyethylene Glycol 3350 17 Gm Packet PO 17 gm DAILY PRN PRN Administration Constipation Pramipexole Dihydrochloride 0.125 mg 09/21/23 08:30 Pramipexole 0.25 Mg Tab PO DAILY [facility] Prednisone 40 mg 09/18/23 08:30 09/20/23 08:12 Prednisone 20 Mg Tab PO 40 mg DAILY [facility] Administration Psyllium Hydrophilic Mucilloid 1 each 09/18/23 20:00 09/20/23 20:51 Psyllium Pkt PO Not Given BID KHANH Psyllium Hydrophilic Mucilloid 1 each 09/21/23 08:30 Psyllium Pkt PO DAILY KHANH Sertraline HCl 50 mg 09/21/23 08:30 Sertraline 50 Mg Tab PO DAILY KHANH Sodium Chloride 0 ml 09/17/23 15:35 09/20/23 00:29 Normal Saline Flush 10 Ml Syr IVP 20 ml PRN PRN Administration Sodium Chloride 0 ml 09/17/23 20:00 09/20/23 20:50 Normal Saline Flush 10 Ml Syr IVP 10 ml BID KHANH Administration Sodium Chloride 0 ml 09/17/23 15:35 Normal Saline 10 Ml Vial IJ DIRECTED PRN Tiotropium [place] 2 puff 09/20/23 18:10 09/20/23 21:19 Tiotropium [place]-Respimat 10 Puff Inh IH 2 puffs DAILY KHANH Administration Allergies acetaminophen [From Mapap (acetaminophen)] Allergy (Severe, Verified 09/17/23 11:42) Hives bupropion Allergy (Intermediate, Verified 09/17/23 11:42) Other (See Comment) cephalexin [Cephalexin] Allergy (Intermediate, Verified 09/17/23 11:42) Skin Rash Penicillins Allergy (Intermediate, Verified 09/17/23 11:42) rash with all cillins ampicillin Allergy (Mild, Verified 09/17/23 11:42) Skin Rash atorvastatin Allergy (Mild, Verified 09/17/23 11:42) Other (See Comment) cefprozil [From Cefzil] Allergy (Mild, Verified 09/17/23 11:42) Skin Rash Cephalosporins Allergy (Mild, Verified 09/17/23 11:42) Hives clindamycin Allergy (Mild, Verified 09/17/23 11:42) Skin Rash doxycycline Allergy (Mild, Verified 09/17/23 11:42) Skin Rash varenicline [From Chantix] Allergy (Mild, Verified 09/17/23 11:42) Other (See Comment) cefuroxime [From Ceftin] Allergy (Verified 09/17/23 11:42) Hives clarithromycin [From Biaxin] Allergy (Verified 09/17/23 11:42) rash/hives duloxetine [From Cymbalta] Adverse Reaction (Intermediate, Verified 09/17/23 11:42) made me feel very weird linaclotide [From Linzess] Adverse Reaction (Mild, Verified 09/17/23 11:42) Diarrhea nicotine [From Nicorette] Adverse Reaction (Mild, Verified 09/17/23 11:42) Nauseaous adhesive tape Adverse Reaction (Unknown, Verified 09/17/23 11:42) Skin Rash banana Adverse Reaction (Verified 09/17/23 11:42) abd bloating codeine Adverse Reaction (Verified 09/17/23 11:42) sick hydrocodone [From Vicodin] Adverse Reaction (Verified 09/17/23 11:42) cold sweats, vomiting medipore tape Allergy (Severe, Uncoded 09/17/23 11:42) skin blisters black hair dye Allergy (Intermediate, Uncoded 09/17/23 11:42) Hives eggs Allergy (Uncoded 09/17/23 11:42) bloating stoma adhesive Adverse Reaction (Severe, Uncoded 09/17/23 11:42) bleeding rash Exam Narrative Exam Narrative: Gen: NAD, normal respiratory effort, well-nourished HENT: PERRL, nasal turbinates normal without erythema or inflammation, moist oral mucosa, Mallampati 2, No LAD or JVD Chest: No respiratory distress, normal appearance of chest, clear to auscultation bilaterally, bibasilar crackles, no wheezing Heart: regular rate and rhythym, no murmurs, rubs or gallops Abdomen: Non-distended, soft, non tender Extremities: No clubbing, edema, cyanosis, rashes Neuro: AAOx3 , non focal Psych: cooperative, appropriate mental affect Results Last Vital Signs Temp 36.3 C L 09/21/23 03:07 Pulse 86 09/21/23 03:07 Resp 19 09/21/23 03:07 BP 130/89 09/21/23 03:07 Pulse Ox 90 L 09/21/23 03:07 Labs 09/20/23 06:10 09/19/23 05:05
[2023-09-21] MEDS: Albuterol/Ipratropium 3 ML UPD VIAL UPD ×3 (07:43→15:20)
[2023-09-21] MEDS: Budesonide/Formoterol 160/4.5 6 GM 60 PUFF INH IH (07:45)
[2023-09-21] MEDS: Tiotropium Bromide-Respimat 10 PUFF INH 2 PUFF IH (07:45)
[2023-09-21] MEDS: Apixaban 5 MG TAB 10 MG PO (08:59)
[2023-09-21] MEDS: Sertraline 50 MG TAB PO (09:00)
[2023-09-21] MEDS: Methylphenidate 10 MG TAB PO (09:00)
[2023-09-21] MEDS: levoFLOXacin 500 MG, levoFLOXacin 250 MG 750 MG PO (09:00)
[2023-09-21] MEDS: Gabapentin 300 MG CAP PO ×2 (09:00→12:12)
[2023-09-21] MEDS: Pantoprazole 40 MG TABCR PO (09:01)
[2023-09-21] MEDS: predniSONE 20 MG TAB 40 MG PO (09:01)
[2023-09-21] MEDS: Docusate Sodium 100 MG CAP PO ×2 (09:01→14:40)
[2023-09-21] MEDS: Pramipexole 0.25 MG TAB 0.125 MG PO (09:01)
[2023-09-21] MEDS: Psyllium PKT 1 EACH PO (09:04)
[2023-09-21] MEDS: oxyCODONE 10 MG TAB PO (09:09)
[2023-09-21] MEDS: Normal Saline Flush 10 ML SYR IVP (09:11)
--- NOTE | 2023-09-21 09:28 | PDOC.CMPRO ---
Date of service: 09/21/23 Care Management Progress Note Progress Note Text Progress Note Text: S/O: Afsaneh was sitting up in bed when meeting with CM. MD present in room reviewing discharge planning of new home O2, and new inhaler regimen. Afsaneh shared she is not agreeable to recommended HH PT at this time in home setting. Afsaneh shared she plans to walk her driveway more with her son who is home with her during the day. Afsaneh shares she is eager to discharge home. CM following. A: 62 year old female admitted to [facility] on 09/17/23 with respiratory failure with hypoxia P: Anticipate Afsaneh will be discharged home with no new services when medically stable. She will follow her plan of care as prescribed and follow up with her community providers. Afsaneh will transport via private vehicle with family. CM will follow and continue to evaluate and support discharge needs. SDOH(Care Management) Screening Will the Patient Participate in the Screening?: Unable to obtain Do you worry about having a steady place to live?: no Problems where you live: mold, lack of heat, water leaks, unsafe ashli/stairs and other In the past 12 months, have you had to go without electric, gas, oil or water in your home?: no Have you or anyone in your house had to go without enough food to eat?: no Has lack of transportation kept you from medical appointments or from doing things needed for daily living?: yes Has anyone in your support network made you feel unsafe for any reason?: no Social Determinants of Health Comments(SDOH Details): previously completed Health Related Social Needs Health related social needs: inadequate housing(Z59.1) and transportation insecurity(Z59.82)
--- NOTE | 2023-09-21 13:10 | RESPIRATORY ---
Walk Test Room air at rest: SaO2 89%, HR 86, RR 18 Room air w/ ambulation: SaO2 86% 2L NC w/ ambulation: SaO2 91% Pt will require 2L NC with ambulation and does not require O2 at rest.
--- NOTE | 2023-09-21 14:37 | DSE_ITS ---
Date of service: 09/21/23 Time of Service: 14:37 DS: Diagnosis Discharge Diagnosis (1) Acute exacerbation of chronic obstructive pulmonary disease (COPD): Status: Acute Asessment and Plan: See notes as below (2) Acute respiratory failure with hypoxia: Status: Acute Asessment and Plan: Secondary to acute exacerbation of COPD with acute bronchitis. Treated with IV corticosteroids then switch to oral prednisone, treated with aerosolized bronchodilators including DuoNeb, patient was placed on inhaled corticosteroid and inhaled long-acting beta agonist as well as an inhaled long-acting antimuscarinic agent. While in the hospital she was placed on Symbicort and Spiriva but will be discharged on Trelegy. Patient will complete a tapering dose of prednisone at 30 mg daily x 3 days, followed by 20 mg daily x 3 days, followed by 10 mg daily x 3 days, followed by 5 mg daily x 3 days. Patient was placed on Nexium for GI protection while she is on prednisone particularly since she requires an anticoagulant with apixaban. (3) Pulmonary embolism: Status: Chronic Asessment and Plan: Small distal right lower lobe pulmonary emboli seen on CTA of the chest on admission on 09/17/2023. Patient treated with unfractionated systemic heparin for 48 hours and then switched to Eliquis 10 mg twice daily. Patient should complete 7-day course of 10 mg twice daily and then decrease her dose to 5 mg twice daily for the next 3 to 6 months. Of note venous duplex scan of the legs was negative for DVT. (4) Anxiety: Status: Chronic Asessment and Plan: Patient was started on sertraline 50 mg daily. Further titration should be performed as an outpatient to treat her anxiety. Discharge Plan Disposition Patient Disposition: Home Condition: Improving Discharge Details Reason For Visit: Acute exacerbation of COPD,acute hypoxic respirato Admit Date/Time: 09/17/23 14:16 Admit Provider: Shon Adhikari Attending Provider: Shon Adhikari Primary Care Provider: Soraida Sims V Hospital Course Hospital Course: See admission H&P and ED notes for details. 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 She had a leukocytosis of 15,000 on admission and chest x- ray showed no acute pulmonary findings. She was tachypneic on arrival with respiratory rate in the 30s and after multiple nebulizer treatments her respiratory rate calm down and with supplemental oxygen her saturation came up to 91% 2 L. She did report increased sputum production and although her chest x-ray did not show any pneumonia she was started on Levaquin for acute bronchitis. She also has a known abdominal hernia and ED provider ordered CT scan of the chest abdomen pelvis. CT of the chest was ordered as a PE protocol because of her tachypnea and tachycardia and hypoxemia. CT of the chest abdomen pelvis showed suboptimal pulmonary embolus study due to motion suboptimal opacification of the distal pulmonary arteries however there was some subtle suggestion of intraluminal filling defects in the right lower lobe pulmonary arteries suspicious for pulmonary emboli. No pulmonary infarction or pleural effusions were seen. CT abdomen pelvis showed no ascites she does have evidence of previous colon surgery but no evidence for bowel obstruction or abscess. She has a left-sided tear abdominal wall hernia at her previous colostomy site but the hernia sac did not contain any dilated loops of bowel or fluid. Patient was admitted to the hospital placed on IV Solu-Medrol scheduled aerosolized bronchodilators with DuoNeb and kept on Levaquin. She was treated with unfractionated systemic heparin for 48 hours and then switched to apixaban 10 mg twice daily. She was started on Spiriva and Symbicort (previously she had been on Advair at home but not on Spiriva). She improved over the next few days but still required supplemental oxygen with ambulation. On the day of discharge she underwent an exercise oximetry test that showed a resting oxygen saturation 89% at rest with a heart rate of 86 respiratory rate of 18 with ambulation her oxygen saturation dropped to 86% but with 2 L/min per nasal cannula her ambulatory oxygen level was 91%. Pulmonary consultation was obtained with Dr. Eugenia Frye saw the patient on the day of her discharge and made recommendations that the patient be discharged on Trelegy in addition to her rescue aerosol treatments DuoNeb. She also recommend that Levaquin be discontinued as the patient had no evidence for pneumonia however it should be noted the patient did have symptoms of acute bronchitis and exacerbated her COPD and therefore I think the Levaquin was appropriate. Patient did complete 5-day course of Levaquin which should be more than adequate for an acute bronchitis. She will not be discharged on any home prescriptions for antibiotics. A prednisone taper was recommended beginning tomorrow at 30 mg daily for 3 days then tapering every 3 days decreasing daily dose by 10 mg until she is down to 5 mg daily for 3 days and then off. Recommend the patient continue Eliquis for 3 to 6 months of therapy. Patient will continue Eliquis at 10 mg twice a day for the next 6 days and then 5 mg twice daily thereafter. Follow-up should be with her PCP in the next week and with Dr. Eugenia Frye in 2 to 4 weeks. Patient is advised to refrain from smoking or vaping and the patient should follow-up with her PCP regarding routine vaccinations for prevention of respiratory infections including updating her influenza and pneumonia vaccine and make sure she is up-to-date on COVID-19 vaccination as well as RSV. Home Meds and New Rx's Prescriptions: New sertraline 50 mg Tablet 50 mg PO DAILY 30 Days Qty: 30 0RF Eliquis 5 mg Tablet See Rx Instructions .ROUTE .COMPLEX Qty: 66 0RF Rx Instructions: 10 mg orally bid x 6 more days then 5 mg bid x 6 months prednisone 10 mg tablet See Taper PO DIRECTED Qty: 20 0RF Taper: Prednisone 10mg taper 30 mg Daily for 3 Days and 0 Hour 20 mg Daily for 3 Days and 0 Hour 10 mg Daily for 3 Days and 0 Hour 5 mg Daily for 3 Days and 0 Hour Rx Instructions: TAPER: 30 mg daily for 3 Days; 20 mg daily for 3 Days; 10 mg daily for 3 Days; 5 mg daily for 3 Days ipratropium-albuterol 0.5 mg-3 mg(2.5 mg base)/3 mL solution for nebulization 3 ml inhalation Q4H MDD 18 mL PRN (Reason: shortness of breath or wheezing) Qty: 180 0RF esomeprazole magnesium [Nexium] 40 mg capsule,delayed release(DR/EC) 40 mg PO DAILY Qty: 30 0RF Trelegy Ellipta 200-62.5-25 mcg blister with device 1 inh inhalation DAILY Qty: 60 0RF Continued methocarbamol 750 mg tablet 750 mg PO QID PRN (Reason: pain (scale score 4-6)) Qty: 60 6RF Metamucil 3.4 gram/5.4 gram powder 1 tbsp PO DAILY Qty: 1 0RF Rx Instructions: mix into at least 8 oz of water or juice before administering albuterol sulfate [ProAir HFA] 90 mcg/actuation HFA aerosol inhaler 2 puff IH Q4-5H PRN albuterol sulfate 2.5 mg /3 mL (0.083 %) solution for nebulization 2.5 mg IH Q4H PRN pramipexole [Mirapex] 0.125 mg tablet 0.125 mg PO DAILY Rx Instructions: Current med list: 1 Tab q afternoon, 2 tabs q HS fluticasone propionate [Flonase Allergy Relief] 50 mcg/actuation spray,suspen александр 1 spray CURTIS DAILY PRN Rx Instructions: 1 spray each side 2 times per day oxycodone 10 mg tablet 10 mg PO QID PRN docusate sodium [Colace] 100 mg capsule 100 mg PO PRN PRN aspirin 81 mg tablet,delayed release (DR/EC) 81 mg PO DAILY naloxone [Narcan] 4 mg/actuation spray,non-aerosol 4 mg intranasal Q2M PRN Rx Instructions: spray 1 dose into ONE nostril; alternate nostrils w each dose until help arrives methylphenidate HCl 10 mg tablet 10 mg PO BID Inhaler, Assist Devices [Pocket Chamber] 1 ea miscellaneous DIRECTED Qty: 0 0RF simethicone 80 mg Tablet,Chewable 80 mg PO DIRECTED gabapentin 300 mg Capsule 300 mg PO BID@0830,1200 Qty: 60 0RF Discontinued fluticasone propion-salmeterol [Advair Diskus] 250-50 mcg/dose blister with device 1 inh inhalation BID ibuprofen [Ibuprofen IB] 200 MG tablet 200 mg PO QID PRN PRN Rx Instructions: 600 mg orally prednisone 10 mg tablet 10 mg PO DIRECTED Patient Comments: TAKE 4 TABLETS BY MOUTH ONCE DAILY X 3 DAYS, 3 TABLETS DAILY X 3 DAYS, 2 TABLETS ONCE DAILY X 3 DAYS, THEN 1 TABLET ONCE DAILY X 3 DAYS Discharge Instructions Instructions: Apixaban (By mouth), Pulmonary Embolism (DC), Chronic Lung Disease and Infection Prevention (DC), Energy Conservation Techniques (DC), Dyspnea Scale and Exercise (DC), Nutrition Guidelines for People with COPD (DC) Additional Instructions: You were admitted to the hospital for treatment of acute hypoxic respiratory failure d/t COPD exacerbation and were treated w/ aerosolized bronchodilators, and iv coriticosteroids (subsequently switched to oral prednisone). You are being sent home on a tapering dose of prednisone. You were treated w/ an antibiotic (Levaquin) for 5 days and do not need further antibiotics. You were not found to have any pneumonia on your CT scan of your chest but were found to have small distal pulmonary emboli (blood clots) in the right lower lung. You were put on intravenous blood thinners (heparin) for 48 hour and then switched to oral blood thinner (Eliquis or Apixaban). You should take 10 mg twice a day (two 5 mg tablets twice a day) for the next 6 days then decrease to 5 mg (one tablet) twice a day. You should remain on blood thinners for at least 3 months and up to 6 months. You have been prescribed Trelegy, this will replace your Advair. This is a maintenance combination respiratory medication that combines two different bronchodilators (an anticholinergic agent and a beta agonist: both which act on smooth muscle of the bronchiole tube to improve airflow; and a long acting inhaled corticosteroid which reduces inflammation of the bronchiole which will reduce mucous production and swelling both which lead to reduced air flow). You still should have a rescue inhaler or aerosolized bronchodilator, this can be either albuterol alone or combo of albuterol w/ ipatroprium (DuoNeb). This should be used on an as needed basis for acute wheezing and dyspnea and may be used every 4 to 6 hours but in emergency can be used every 20 minutes in severe respiratory distress. Please keep a follow up appointment w/ your primary care provider who will review your hospital care and update your medications in your chart in the office. She will make recommendations regarding updating any vaccines needed to prevent respiratory viral illnesses such as COVID-19, influenza and also pneumonia vaccination. Also keep a follow up w/ Dr. Frye, chair mechanic, she will re-evaluate your COPD, adjust your respiratory medications to optimize your breathing. You have been prescribed home oxygen as your exercise test indicated a need for supplemental oxygen. At rest your oxygen level was ok at 90% but w/ activity you dropped to 86% and therefore need supplemental oxygen to keep your levels above 88%. You may or may not need senior care oxygen use, depending on your recovery from your current COPD exacerbation and treatment of your pulmonary embolus. However, please use the oxygen for now until you are told otherwise by your providers. Please refrain from smoking or vaping. Both are damaging to your lungs and worsen COPD. Your PCP can recommend programs to help you sustain a smoke free li fe. If you feel that your shortness of breath is getting worse and not responding to use of your rescue breathing meds (albuterol or albuterol w/ ipatropium) then call 911 to have EMS bring you to the hospital. You also have been prescribed medication for your anxiety, sertraline. This is an SSRI antidepressant. This is used to help control anxiety as well as depression. It generally takes 2 to 4 weeks to have maximal effect and the dose may need to be titrated upwards. This is a non habit forming medication that will not over sedate you like lorazepam (ativan) can. Your PCP can adjust the d ose to maximize the effects of reducing your anxiety. High anxiety levels can precipitate worsening breathing but also exacerbations of COPD can elicit worsening anxiety, so it makes sense to try to control both. Referrals: Soraida Sims MD [Primary Care Provider] - Eugenia Frye MD [ [facility] STAFF PHYSICIAN] - Activity:: Activity as Tolerated Equipment/Supplies:: 2 lpm Diet:: Normal Diet Discharge Orders Discharge Orders: Discharge Order (Routine); Ordered 09/21/23 Ordered By: Carmelo Salvador DS: Summary Time Spent with Patient providing and/or coordinating discharge services: Greater than 30 minutes Specific discharge activities: Interview/exam of patient; review of discharge instructions, completion of prescriptions/discharge instructions; discussion w/ nursing and CM; documentation of hospital visit Status at Discharge Functional status at discharge: independent ambulation Overall status at discharge: patient is progressing back to baseline Mental Status: mental status grossly normal Speech and Movement: speech and movement normal Mood: congruent mood Affect: normal affect Quality:SDOH Health Related Social Needs: Health related social needs inadequate housing, transp o insecurity Referrals and interventions: would like help fixing house Exam Narrative Exam Narrative: Can sit up at the bedside talking with care management. She is not wearing supplemental oxygen at this time she does not appear to be in any acute distress. No accessory respiratory muscle use. Lungs are fairly clear even with forceful exhalation. Just some faint end expiratory wheeze no rhonchi or rales Heart is regular rate and rhythm Extremities without peripheral cyanosis or edema. Psych Mental Status: mental status grossly normal Speech and Movement: speech and movement normal Mood: congruent mood Affect: normal affect DS: Data Vitals/I&O Vitals and I&O: Vital Signs Temperature 36.6 C 09/21/23 11:27 Temperature Source Tympanic 09/21/23 11:27 Pulse 87 09/21/23 12:37 Pulse Rhythm Regular 09/21/23 09:10 Pulse 120 H 09/17/23 14:30 Respiratory Rate 18 09/21/23 12:37 Respiratory Effort Normal, Non-Labored 09/21/23 09:10 Respiratory Depth Normal 09/21/23 09:10 Respiratory Pattern Normal 09/21/23 09:10 Blood Pressure 157/79 H 09/21/23 11:27 Blood Pressure Mean 89 09/17/23 14:16 Blood Pressure Position Sitting 09/17/23 11:21 Pulse Oximetry 92 09/21/23 12:37 Respiratory End-tidal CO2 31 09/17/23 14:20 Oxygen Delivery Method Room Air 09/21/23 12:23 Oxygen Flow Rate 0 09/21/23 12:23 Fraction of Inspired Oxygen (FIO2) 28 09/18/23 08:44 Pain Level 6 09/21/23 11:27 Comment Nurse notified. 09/20/23 03:10 Intake & Output 09/20/23 09/21/23 09/21/23 23:59 11:59 23:59 Intake Total 510 / 1135 Output Total 100 / 400 Balance 410 / 735 Intake: IV Oral 500 / 1125 Output: Urine 100 / 400 Other: Urine Color Yellow Yellow Urine Appearance Clear Clear Comment pT stated that the commode has been emptied out through out the day. I just emptied it out myself. Voiding Methods Bedside Commode Bedside Commode Data Completed and Pending Labs on day of discharge: Preliminary micro results at discharge 09/17/23 12:11 Blood Culture - Preliminary Blood NO GROWTH 96 HOURS 09/17/23 11:40 Blood Culture - Preliminary Blood NO GROWTH 96 HOURS PFSH All Active Problems Pulmonary embolism (Chronic) Abdominal hernia (Acute) Hypoxia (Acute) Acute exacerbation of chronic obstructive pulmonary disease (COPD) (Acute) Acute respiratory failure with hypoxia (Acute) Constipation due to opioid therapy (Acute) Bright red rectal bleeding (Acute) Chronic constipation without overflow incontinence (Acute) S/P colostomy takedown (Acute) Chronic narcotic dependence (Acute) COPD (chronic obstructive pulmonary disease) (Chronic) Anxiety (Chronic) Cervicalgia (Acute) Tendonitis of long head of biceps brachii of right shoulder (Acute) Degenerative arthritis of cervical spine (Acute) Arthritis of left glenohumeral joint (Acute) HPV (human papilloma virus) infection (Acute) IBS (irritable bowel syndrome) (Chronic) Skin lesion (Acute) Low back pain (Acute) Lumbar radiculopathy (Acute) Abdominal pain (Acute) Abdominal bloating (Acute) Hx of allergic reaction (Acute) Closed fracture of right distal fibula (Acute) Shoulder pain (Acute) Trigger finger of all digits of both hands (Acute) Arthritis of right glenohumeral joint (Acute) Spondylosis, cervical (Acute) Carpal tunnel syndrome, bilateral (Acute) Shoulder pain, bilateral (Acute) Effusion of left knee (Acute) Situational depression (Chronic) Myalgia (Acute) Generalized osteoarthritis of multiple sites (Acute) Patellar tendinitis (Acute) Sinusitis (Acute) Mild memory disturbance (Acute) Visit for screening mammogram (Acute) Frequency of urination (Acute) Dysuria (Acute) Ankle joint disorder (Acute) Hypoglycemia (Acute) Sinusitis, acute (Acute) Medical History Former smoker Abscess of sigmoid colon due to diverticulitis Personal history of nicotine dependence Diverticulosis HPV (human papilloma virus) anogenital infection Pneumonia History of paresthesia Supraclavicular lymphadenopathy Tendonitis Sleep apnea Diaphoresis Dyspnea Nocturnal hypoxia COVID Hematemesis ADHD Duodenitis Gastritis GERD (gastroesophageal reflux disease) Exposure to COVID-19 virus Liver lesion Grief reaction Hemangioma of liver Seasonal allergic reaction Constipation, chronic Cervical spinal stenosis Hyperlipidemia Tobacco use Minimally displaced zone I fracture of sacrum, sequela Edentulous Reactive inflammatory arthritis Blood in stool AGATHA III (cervical intraepithelial neoplasia III) Surgical History History of colostomy reversal (~12/2022) S/P exploratory laparotomy S/P tonsillectomy S/P colonoscopy History of esophagogastroduodenoscopy (EGD) (~09/2020) History of colonoscopy (~11/2022) 11/2022, 07/05/2018 Trigger Finger release several Arthroscopy, Shoulder Family History Mother Personal history of malignant neoplasm uterine, mets to colon Social History Smoking/Tobacco Use Status: Former Tobacco Use Quit Date: 05/14/22 Smoking risk assessment performed?: Yes Alcohol Intake: current Alcohol Intake frequency: a few times a month Alcohol type: wine Drug use: Never Substance use type: does not use Housing: house Current gender identity: female Do you feel safe at home: Yes Do you feel safe in your relationship?: Yes Additional Social history: Live with daughter Time Spent with Patient Time Spent with Patient: 45-69 minutes Time was spent: preparing to see the patient(eg.review tests), ordering medica tions,tests, procedures, referring, communicating with other health home health aide caregiver, indepentently interpreting results, counseling the patient and care coordination
== END 2023-09-21 16:40 | disposition home or self-care (01) | DRG 175 ==
LOC: ER 14:48 → MS 15:14
PROVIDERS: Family Medicine; Student in an Organized Health Care Education/Training Program; Admitting Provider Family Medicine; Emergency Provider Emergency Medicine Emergency Medical Services; PCP Family Medicine; Visit Provider Family Medicine
DX: I26.94 Multiple subsegmental thrombotic pulmonary emboli without acute cor pulmonale (principal); J96.01 Acute respiratory failure with hypoxia; J44.0 Chronic obstructive pulmonary disease with (acute) lower respiratory infection; J44.1 Chronic obstructive pulmonary disease with (acute) exacerbation; J20.9 Acute bronchitis, unspecified; F41.9 Anxiety disorder, unspecified; K43.9 Ventral hernia without obstruction or gangrene; K59.03 Drug induced constipation; M54.16 Radiculopathy, lumbar region; M15.9 Polyosteoarthritis, unspecified; Z87.891 Personal history of nicotine dependence; R35.0 Frequency of micturition; T40.605A Adverse effect of unspecified narcotics, initial encounter; Z79.891 Long term (current) use of opiate analgesic
CPT/HCPCS: 00123; 36415; 71275; 74177; 80048; 80053; 80307; 82805; 85027; 87040; 87635; 93005; 94640; 96361; 96365; 96368; 96375; 99291; 71045; 81003; 81015; 83605; 83735; 84484; 85025; 85730; 93010; 93970; 94664; 94667; 94668; 94760; 99223; 99231; 99233; 99239; J1644; J1885; J1956; J2060; J2270; J2919; J3475; J7512; J7613; J7620; Q9967

== ENCOUNTER 2024-02-25 19:28 | Outpatient (REF) | payer MEDICARE, MEDICAID, SELFPAY ==
[2024-02-25 15:56] LABS: Hemoglobin A1C 6.2 % (<5.7)
[2024-02-25 16:03] LABS: TSH (W/Ref FT4) 1.69 uIU/mL (0.36-3.74)
[2024-02-25 16:04] LABS: C-Reactive Protein < 0.50 mg/dL (<or=0.5)
[2024-02-25 16:11] LABS: ESR 28 mm/hr (0-30)
[2024-02-25 17:06] LABS: Vitamin B12 316 pg/mL (193-986)
--- OUTSIDE RECORDS SUMMARY | 2024-02-25 19:32 | XMS_ITS | Encounter Summary ---
Author Organization [facility] Address [facility] [place] [address] Care Team Providers Care Care Transition Mgr Name Role Phone Radha Mo ENGINEERING DRAFTER Primary Care Provider + Encounter Details Date Type Department Care Team (Late st Contact Info) Description 07/22/2020 Ancillary Procedure Radiology [facility] at [facility] [place] [id number] Radha Mo APRN [address] [place] [address] Social History Tobacco Use Types Packs/Day Years Used Date Smoking Tobacco: Never Assessed Sex and Gender Information Value Date Recorded Sex Assigned at Not on file Gender Identity Not on file Sexual Orientation Not on file documented as of this encounter Plan of Treatment Not on file documented as of this encounter Procedures Procedure Name Priority Date/Time Associated Diagnosis Comments FILM LIBRARY STORAGE ONLY MR SHOULDER Routine 07/22/2020 12:00 AM EST documented in this encounter Results * Film Library- Storage Only MR Shoulder (07/22/2020 12:00 AM EST) Narrative [facility] - 07/23/2020 7:54 PM EST This exam is auto-finalizing. It's purpose is for storage only. Radha Mo APRN IMG FILM LIBRARY ORDERABLES [place], [place] documented in this encounter Visit Diagnoses Not on filedocumented in this encounter Care Teams Care Transition Mgr Relationship Specialty Start Date End Date Radha Mo APRN PCP - General 05/06/10 07/29/20 documented as of this encounter
--- OUTSIDE RECORDS SUMMARY | 2024-02-25 19:32 | XMS_ITS | Encounter Summary ---
Author Organization [facility] Address [address] [place] [address] Care Team Providers Care University Registrar Name Role Phone Unknown, Provider Primary Care Provider Encounter Details Date Type Department Care Team (Late st Contact Info) Description 01/05/2023 Lab Requisition [facility] Pathology & Laboratory Medicine - [facility] [address] [place] [address] Sheryl Tanner, DO [address] [place] [address] Encounter for other general examination Social History Tobacco Use Types Packs/Day Years Used Date Smoking Tobacco: Never Assessed Interpersonal Safety Answer Date Record ed Physically Hurt Never 01/14/2020 Verbally Threaten Not on file 01/14/2020 Sex and Gender Information Value Date Recorded Sex Assigned at Not on file Gender Identity Not on file Sexual Orientation Not on file documented as of this encounter Plan of Treatment Not on file documented as of this encounter Procedures Procedure Name Priority Date/Time Associated Diagnosis Comments SURGICAL PATHOLOGY Today 01/05/2023 10 :17 EDT Encounter for other general examination documented in this encounter Results * SURGICAL PATHOLOGY (01/05/2023 10:17 EDT) Note to Patient The following pathology results have been interpreted by your pathologist and may be available to you before your health provider has had the opportunity to review them. Please allow time for your provider to receive these results and explore management options, if applicable. 01/11/2023 14:28 T [facility] Final Diagnosis A. APPENDIX, APPENDECTOMY: - Entirely submitted appendix with no specific diagnostic abnormalities. 01/11/2023 14:28 [facility] Attestation There was significant resident/fellow involvement in the diagnostic evaluation of this case. By the signature below, the attending physician certifies that they have personally conducted a gross and/or microscopic examination of the described specimens and rendered or confirmed the above diagnosis. 01/11/2023 14:28 [facility] at 1428 Clinical History Perforated diverticulitis 01/11/2023 14:28 [facility] Gross Description A. Received in formalin labelled with proper patient identification (initials P, K) and appendix is an appendix (6.0 cm in length x 0.7 cm in diameter), with abundant attached mesoappendix. The proximal margin is stapled. The serosa is pedroza-brown and smooth. The cut surface is pedroza. The average wall thickness is 0.2 cm. A perforation site not identified. The lumen ranges from 0.1 cm to 0.2 cm in diameter. A fecalith is not identified. The proximal margin is inked. The section adjacent to the stapled proximal margin, 2 technical sales representative cross section and one half of the longitudinally bisected distal tip are submitted in A1. The remainder of the appendix is submitted in A2-A5 SONY BARNES MD 01/06/2023 14:34 01/11/2023 14:28 [facility] Resident/Matt w: Sony Barnes MD 01/11/2023 14:28 EDT [facility] Performing Lab [facility] 01/11/2023 14:28 [facility] Scanned Images 01/11/2023 14:28 [facility] Tissue ENTIRE APPENDIX / Unknown 01/05/2023 10:17 EDT 01/05/2023 18:08 EDT Sheryl Tanner DO PATHOLOGY ORDERABLES [facility] [address] [place] [address] documented in this encounter Visit Diagnoses Diagnosis Encounter for other general examination documented in this encounter Care Teams University Registrar Relationship Specialty Start Date End Date Unknown, Provider, PCP - General 04/27/15 documented as of this encounter
--- OUTSIDE RECORDS SUMMARY | 2024-02-25 19:32 | XMS_ITS | Clinical Summary ---
Author Organization [facility] Address [address] [facility] [place] [address] Care Team Providers Care Development Chemist Name Role Phone Soraida Sims MD Primary Care Provider [phone] Allergies Active Allergy Reactions Criticality Noted Date Comments Amoxicillin Trihydrate Medium CIS - Hives Ampicillin Medium CIS - Hives Banana Medium CIS - Nausea/Vomiting Cephalexin Monohydrate Medium CIS - Hives Chicken Derived Medium CIS - Nausea/Vomiting Clarithromycin Medium CIS - Hives Codeine Phosphate Medium CIS - Nausea/Vomiting Egg Medium CIS - Nausea/Vomiting Hydrocodone-Acetaminophen Medium CIS - Nausea/Vomiting Penicillins Medium CIS - Hives Medications Medication Sig Dispensed Refills Start Date End Date Status ProAir HFA 90 mcg/actuation HFA Aerosol Inhaler INHALE 2 PUFFS EVERY 4 TO 6 HOURS NEEDED FOR SHORTNESS OF BREATH WHEEZING COUGH DIRECTED 03/28/2021 Active albuteroL (Proventil) 2.5 mg /3 mL (0.083 %) Solution for Nebulization INHALE CONTENTS OF 1 VIAL 3ML VIA NEBULIZER EVERY FOUR TO SIX HOURS NEEDED 03/17/2021 Active budesonide-formoteroL (Sybmicort) 80-4.5 mcg/actuation HFA Aerosol Inhaler Inhale into the lungs. 06/26/2019 Active celecoxib (CeleBREX) 100 mg Capsule TAKE ONE CAPSULE BY MOUTH TWICE A DAY 01/02/2021 Active cetirizine (ZyrTEC) 10 mg Tablet TAKE ONE TABLET BY MOUTH EVERY DAY 11/07/2020 Active cyclobenzaprine (Flexeril) 10 mg Tablet TAKE ONE HALF TO ONE TABLET BY MOUTH THREE TIMES DAILY NEEDED USE ONE HOUR BEFORE MRI AND NEEDED 02/27/2021 Active fluticasone propionate (Flonase) 50 mcg/actuation [place], Suspension by Nasal route. 06/26/2020 Active gabapentin (Neurontin) 100 mg Capsule Take by mouth. 06/26/2019 Active ibuprofen (Advil) 200 mg Tablet Take by mouth. 09/18/2015 Active omeprazole (PriLOSEC) 20 mg Capsule, Delayed Release(E.C.) TAKE ONE CAPSULE BY MOUTH EVERY DAY 03/13/2021 Active oxyCODONE (ROXICODONE) 10 mg Tablet TAKE ONE TABLET BY MOUTH FOUR TIMES A DAY NEEDED 03/30/2021 Active pramipexole (MIRAPEX) 0.125 mg Tablet Take by mouth. 06/26/2019 Activ e Spiriva Respimat 2.5 mcg/actuation Mist INHALE 2 PUFFS BY MOUTH ONCE A DAY 01/02/2021 Active Trelegy Ellipta 200-62.5-25 mcg inhaler (DPI) Inhale 1 puff into the lungs daily. 01/18/2024 Active LORazepam (Ativan) 0.5 mg tablet TAKE ONE TABLET BY MOUTH TWICE A DAY NEEDED FOR MORE SEVERE ANXIETY. DO NOT USE DAILY. Active methocarbamoL (Robaxin) 750 mg tablet TAKE ONE TABLET BY MOUTH FOUR TIMES A DAY NEEDED FOR MUSCLE SPASMS Active methylphenidate ER (Metadate ER) 20 mg ER tablet 02/05/2024 Active docusate sodium (Colace) 100 mg capsule Take 100 mg by mouth 2 times daily. Active Active Problems No known active problems Encounters Date Type Department Care Team Description 02/08/2024 11:20 AM EDT [place] [address] Richy Paige MD Bilateral shoulder pain, unspecified chronicity 02/08/2024 10:45 AM EDT - 02/08/2024 11:59 PM EDT Hospital Encounter XRay at [address] [place] [address] Bilateral shoulder pain, unspecified chronicity Discharge Disposition: Home 02/08/2024 Travel 02/07/2024 Orders Only Orthopaedics at [facility] [place] [address] Richy Paige MD Bilateral shoulder pain, unspecified chronicity 01/17/2024 Transcribe Orders eDH Incoming Referrals [phone] Soraida Sims MD Shoulder pain, unspecified chronicity, unspecified laterality from Last 3 Months Social History Tobacco Use Types Packs/Day Years Used Date Smoking Tobacco: Former Cigarettes Smokeless Tobacco: Never Tobacco Cessation:Counseling Given: Not Answered Alcohol Use Standard Drinks/Week Comments Yes 0 (1 standard drink = 0.6 oz pur e alcohol) occational Sex and Gender Information Value Date Recorded Sex Assigned at Not on file Gender Identity Not on file Sexual Orientation Not on file Last Filed Vital Signs Vital Sign Reading Time Taken Comments Blood Pressure 128/76 04/04/2021 12:57 PM EDT Pulse 71 04/04/2021 12:57 PM EDT Temperature - - Respiratory Rate - - Oxygen Saturation - - Inhaled Oxygen Concentration - - Weight 77.1 kg (170 lb) 02/08/2024 11:39 AM EDT Height 154.9 cm (5' 1) 02/08/2024 11:39 AM EDT Body Mass Index 32.12 02/08/2024 11:39 AM EDT Plan of Treatment Health Maintenance Due Date Last Done Comments CT Colonography 1958 Colonoscopy 1958 Colorectal Cancer Screening 1958 FIT DNA 1958 FIT 1958 Sigmoidoscopy (10 year) with FIT yearly 1958 Sigmoidoscopy 1958 HIV screen 1976 Hepatitis C Screening 1976 Lipid Screening 1976 Tdap adult 1977 Tetanus vaccine 1977 HPV test 1988 PAP Smear 1988 Breast Cancer Share Decision Needed 1998 Breast Cancer screening 1998 Diabetes Screening (HgbA1C or Glucose) 1998 Zoster vaccine (1 of 2) 2008 Advance Directive 2013 Bone Density Scan 11/21/2023 Pneumoccocal Vaccine: 65+ (1 of 1 - PCV) 11/21/2023 Covid-19 Vaccine (1 - 2022- season) 2024 Influenza (Flu) vaccine (1 o f 1 - Influenza standard series) 02/13/2024 Procedures Procedure Name Priority Date/Time Associated Diagnosis Comments XR SHOULDER BILAT Routine 02/08/2024 11: 21 AM EDT Bilateral shoulder pain, unspecified chronicity from Last 3 Months Results * XR Shoulder Bilat (Generic) (02/08/2024 11:21 AM EDT) WORKSTATION ID [id number] RAD Anatomical Region Laterality Modality Shoulder Bilateral Digital Radiogra phy Impressions 02/08/2024 2:49 PM EDT 1. ??No acute fracture or dislocation 2. ??Osteoarthropathy of bilateral glenohumeral joints with narrowed joint spaces and large osteophytes. 3. ??Prior RIGHT AC decompression. Thank you for letting us participate in the care of this patient. ??If you are a health care provider and have any questions regarding this report, please contact the number below. ??For patients who have questions please contact the health critical care technician that requested your imaging first. ? Electronically signed by: Kaitlin Ellis MD, [facility] ([phone]), at 02/08/2024 2:49 PM Narrative 02/08/2024 2:49 PM EDT EXAMINATION: XR SHOULDER BILAT (GENERIC) CLINICAL HISTORY: Entered by ordering service: bilateral shoulder pain M25.511, Pain in right shoulder - M25.512, Pain in left shoulder TECHNIQUE: Bilateral shoulder, 4 views each side COMPARISON: None FINDINGS: BONES: No acute fracture is present. RIGHT clavicle-distal clavicle resection for decompression with widened AC interval. AC JOINT: Normal AC joint alignment LEFT Bony osteophytes and subchondral sclerosis. GLENOHUMERAL JOINT: ?? Normal glenohumeral alignment. Bilateral narrowed joint spaces with large osteophytes and subchondral sclerosis and irregular bone ends.. Intraarticular bodies in LEFT axillary recess. Normal acromiohumeral interval SOFT TISSUE: periarticular calcifications- none SURVEY: No opacity seen following brief survey of the soft tissues including lung parenchyma. Procedure Note Kaitlin Ellis MD - 02/08/2024 EXAMINATION: XR SHOULDER BILAT (GENERIC) CLINICAL HISTORY: Entered by ordering service: bilateral shoulder pain M25.511, Pain in right shoulder - M25.512, Pain in left shoulder TECHNIQUE: Bilateral shoulder, 4 views each side COMPARISON: None FINDINGS: BONES: No acute fracture is present. RIGHT clavicle-distal clavicle resection for decompression with widenedAC interval. AC JOINT: Normal AC joint alignment LEFT Bony osteophytes and subchondral sclerosis. GLENOHUMERAL JOINT: Normal glenohumeral alignment. Bilateral narrowed joint spaces withlarge osteophytes and subchondral sclerosis and irregular bone ends..Intraarticular bodies in LEFT axillary recess. Normal acromiohumeral interval SOFT TISSUE: periarticular calcifications- none SURVEY: No opacity seen following brief survey of the soft tissues includinglung parenchyma. IMPRESSION 1. No acute fracture or dislocation 2. Osteoarthropathy of bilateral glenohumeral joints with narrowed jointspaces and large osteophytes. 3. Prior RIGHT AC decompression. Thank you for letting us participate in the care of this patient. If youare a health care provider and have any questions regarding this report,please contact the number below. For patients who have questions please contactthe health critical care technician that requested your imaging first. Electronically signed by: Kaitlin Ellis MD, [facility]([phone]), at 02/08/2024 2:49 PM Richy Paige MD IMG DX ORDERABLES from Last 3 Months Care Teams Development Chemist Relationship Specialty Start Date End Date Soraida Sims MD [address] [place] [address] PCP - General Family Medicine 07/30/20
--- OUTSIDE RECORDS SUMMARY | 2024-02-25 19:32 | XMS_ITS | Encounter Summary ---
Author Organization [facility] Address [address] [place] [address] Care Team Providers Care Filenet Admin Name Role Phone Unknown, Provider Primary Care Provider Encounter Details Date Type Department Care Team (Latest Contact Info) Description 07/05/2018 10:21 EST - 07/05/2018 23:59 EST Hospital Encounter [address] [address] Unknown, Provider, Discharge Disposition: Home or Self Care Social History Tobacco Use Types Packs/Day Years Used Date Smoking Tobacco: Never Assessed Sex and Gender Information Value Date Recorded Sex Assigned at Not on file Gender Identity Not on file Sexual Orientation Not on file documented as of this encounter Discharge Disposition Disposition Code Departure Means Destination Home or Self Residential documented in this encounter Plan of Treatment Not on file documented as of this encounter Visit Diagnoses Not on filedocumented in this encounter Care Teams Filenet Admin Relationship Specialty Start Date End Date Unknown, Provider, PCP - General 04/27/15 documented as of this encounter
--- OUTSIDE RECORDS SUMMARY | 2024-02-25 19:32 | XMS_ITS | Encounter Summary ---
Author Organization [facility] [place] [address] Care Team Providers Care Manager Skilled Name Role Phone Soraida Sims MD Primary Care Provider [phone] Reason for Visit * Reason Comments Establish Care ARTHRITIS OF LT FLORIN OHUMERAL JOINT - NGUYỄN * Consultation (Routine) - Closed Specialty Diagnoses / Procedures Referred By Contdavian t Referred To Contact Orthopaedics Diagnoses ARTHRITIS OF LT GLENOHUMERAL JOINT - NGUYỄN Tarik De La Torre MD [address] [place] [address] [facility] [address] [place] [address] Referral ID Status Reason Start Date Expiration Date V isits Requested Visits Authorized [id number] Closed Consult, Test & Treat [facility] PCP Updated and/or Approved 01/09/2021 01/09/2022 6 6 Encounter Details Date Type Department Care Team (Latest Contact Info) Description 04/04/2021 1:00 PM EDT Office Visit [place] [id number] Richy Paige MD [facility] [place] [address] Primary osteoarthritis of left shoulder; Primary osteoarthritis of right shoulder Social History Tobacco Use Types Packs/Day Years Used Date Smoking Tobacco: Every Day Smokeless Tobacco: Never Sex and Gender Information Value Date Recorded Sex Assigned at Not on file Gender Identity Not on file Sexual Orientation Not on file documented as of this encounter Last Filed Vital Signs Vital Sign Reading Time Taken Comments Blood Pressure 128/76 04/04/2021 12:57 PM EDT Pulse 71 04/04/2021 12:57 PM EDT Temperature - - Respiratory Rate - - Oxygen Saturation - - Inhaled Oxygen Concentration - - Weight 73.5 kg (162 lb) 04/04/2021 12:57 PM EDT Height 154.9 cm (5' 1) 04/04/2021 12:57 PM EDT Body Mass Index 30.61 04/04/2021 12:57 PM EDT documented in this encounter Progress Notes * Michael Euceda MD - 04/04/2021 1:00 PM EDT Orthopaedic Surgery Clinic Note Referral: Afsaneh Lowe presents to see us in consultation today at the request of: Tarik De La Torre MD [address] [place] [address] Chief Complaint: Bilateral shoulder pain L>R History of Present Illness: Afsaneh Lowe is a 60 y.o. right hand dominant female who presents with bilateral chronic shoulder pain worse on the left than the right. She was referred by Dr. De La Torre and Dr. Kelly after being evaluated at [facility]. She reports a chronic history of shoulder pain that is worse with heavy activity but is constant in nature. She reports difficulty abducting her shoulder. She also has a history of trigger finger and carpal tunnel syndrome and is status post left long finger trigger finger release and bilateral carpal tunnel releases. She has chronic tingling in her fingertips and locking of her hands when she reaches behind her back. The pain is localized mainly atthe anterior aspect of her shoulder joint and does make it difficult for her to sleep. She has had injections into the right shoulder and declined injection previously for the left shoulder. She takes oxycodone and Celebrex daily for pain. 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 Her referral and previous imaging is from earlier this year and she said she was not able to schedule this appointment until later because she was caring for her sister who has since . Previous clinical documentation raises concern about possible cervical spine origin for her current complaints. She had previous XR imaging of her cervical spine that is not available for review. She states it did show somearthritic changes but has not had further evaluation or MRI of her cervical spine. Pertinent Medical History: Reactive arthritis, Trigger Fingers, Carpal Tunnel, Back Pain, COPD Pertinent Surgical History: Remote h/o right shoulder surgery Dr. 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 Warm and well perfused hand. Gait: Normal nonantalgic Normal fine motor skills with hand writing testing and rapid alternating hand movements, normal biceps and brachioradialis reflexes, negative Whitaker's sign Bilateral positive Durkan's compression test at the wrist and Tinel's at the elbow SKIN: No significant abrasions or lesions about the shoulder. MUSCULOSKELETAL: Bilateral Shoulder Examination Scapulothoracic Rhythm: Normal Rotator Cuff Atrophy: No Tenderness to palpation: Yes, anterior shoulder, bicipital groove Palpable crepitus: No Range of motion (Right/Left) Forward Elevation: 120/120, 160 passive bilaterally External Rotation: 10/10, 20 passive Internal Rotation: full/full Strength Testing: Abduction: 5/5 With Pain External Rotation: 5/5 With Pain Resisted Internal Rotation: 5/5 No Pain Rotator Cuff Testing Empty Can/Selene's: Negative Bear Hug: Negative Biceps/Labrum Groove TTP: Positive L>R Speeds: Positive K[place]aun[place]'s: Positive AC Joint TTP: Positive / Cross-body: Positive Impingement Neer's: Positive Hawkin's: Positive Cervical Range of motion: Normal Spurling's: Negative Imaging: We independently reviewed the patient's imaging in the office today. This includes the bilateral shoulder XR and right shoulder MRI. XR/MRI shows bilateral glenohumeral DJD with inferior humeral head osteophytes. There is significant joint space narrowing and subchondral sclerosis. No fullthickness rotator cuff tears on MRI but evidence of tendinopathy of the supraspinatus and infraspinatus in addition to glenohumeral chondral thinning. Assessment/Plan: 60 y.o. female who presents with bilateral glenohumeral joint arthritis. I had a long discussion with the patient about operative versus nonoperative management of this issue. In terms of nonoperative management we discussed many interventions which she is already tried including NSAIDs, injections, and activity modification. I do think that activity modification will be the mosthelpful thing for her. She works very hard as a concrete pointer, which is very physically demanding on both of her shoulders. Sounds like dog grooming is the most troubling activity that causes her significant pain. Unfortunately, she is unable to modify or change her job at this point. In terms of operative management, she had had a previous discussion about an arthroscopic debridement versus shoulder arthroplasty. In terms of debridement, she has a very large inferior osteophyte which would be difficult to resect completely and would be high risk in terms of the nearby axillary nerve. She does not have as much irregularity around the remainder of the humeral head, and her glenoid appears concentric at this point. I do not see significant chondral flaps or targets that could be greatly improved with a debridement. Additionally, she has remained relatively flexible and has nearly preserved passive range of motion, which could not be improved with the debridement. Overall, I think that a de bridement would be very unpredictable in terms of how much it would help her. She has received transient but notable improvement with previous injections. This does suggest that her glenohumeral joint is the source of her pain. Once her pain becomes debilitating enough, she would be a candidate fortotal shoulder arthroplasty. I would continue to be concerned about her work as a concrete pointer if she had these in place, but I do think that it would provide her the most reliable pain relief. She was very uninterested in a shoulder arthroplasty, and it is clear that it is not an appropriate intervention for her at this time. I totally respect this decision, and I am happy to help the patient with other nonoperative modalities. All questions were answered. I will see patient back on an as-needed basis. Michael Euceda MD, PGY3 And Richy Paige MD, MS Shoulder and Elbow Surgeon Department of Orthopaedic Surgery [facility] This note was created with the assistance of voice dictation software. Please excuse any related errors. I have seen the patient in person and reviewed the resident's above history and I agree with the details as written. The assessment and plan were formulated in discussion with me and I agree with them as documented. documented in this encounter Plan of Treatment Not on file documented as of this encounter Visit Diagnoses Diagnosis Primary osteoarthritis of left shoulder Primary localized osteoarthrosis, shoulder region Primary osteoarthritis of right shoulder Primary localized osteoarthrosis, shoulder region documented in this encounter Care Teams Manager Skilled Relationship Specialty Start Date End Date Soraida Sims MD [address] [place] [address] PCP - General Family Medicine 07/30/20 documented as of this encounter
--- OUTSIDE RECORDS SUMMARY | 2024-02-25 19:32 | XMS_ITS | Referral Summary ---
Author Organization [facility] Address [address] [place] [address] Care Team Providers Care Lead Investigator Name Role Phone Unknown, Provider Primary Care Provider Encounters Date Type Department Care Team Description 02/25/2024 Lab Requisition [facility] Pathology & Laboratory Medicine - [facility] [address] [place] [address] Outr Resulting Lab, Provider from Last 3 Months Social History Tobacco Use Types Packs/Day Years Used Date Smoking Tobacco: Never Assessed Interpersonal Safety Answer Date Record ed Physically Hurt Never 01/14/2020 Verbally Threaten Not on file 01/14/2020 Sex and Gender Information Value Date Recorded Sex Assigned at Not on file Gender Identity Not on file Sexual Orientation Not on file Plan of Treatment Not on file Care Teams Lead Investigator Relationship Specialty Start Date End Date Unknown, Provider, PCP - General 04/27/15
--- OUTSIDE RECORDS SUMMARY | 2024-02-25 19:32 | XMS_ITS | Encounter Summary ---
Author Organization [facility] [place] [address] Care Team Providers Care Applied Psychology Professor Name Role Phone Soraida Sims MD Primary Care Provider [phone] Encounter Details Date Type Department Care Team (Latest Contact Info) Description 02/08/2024 Travel Social History Tobacco Use Types Packs/Day Years Used Date Smoking Tobacco: Former Cigarettes Smokeless Tobacco: Never Alcohol Use Standard Drinks/Week Comments Yes 0 [...] on filedocumented in this encounter Care Teams Applied Psychology Professor Relationship Specialty Start Date End Date Soraida Sims MD [address] [place] [address] PCP - General Family Medicine 07/30/20 documented as of this encounter
--- OUTSIDE RECORDS SUMMARY | 2024-02-25 19:32 | XMS_ITS | Encounter Summary ---
Author Organization [facility] Address [facility] [place] [address] Care Team Providers Care Stratigraphy Teacher Name Role Phone Soraida Sims MD Primary Care Provider [phone] Encounter Details Date Type Department Care Team (Late st Contact Info) Description 02/07/2024 Orders [place] [address] Richy Paige MD [facility] [place] [address] Bilateral shoulder pain, unspecified chronicity Social History Tobacco Use Types Packs/Day Years Used Date Smoking Tobacco: Every Day Smokeless Tobacco: Never Sex and Gender Information Value Date Recorded Sex Assigned at Not on file Gender Identity Not on file Sexual Orientation Not on file documented as of this encounter Progress Notes * Jenny Quintero PA - 02/07/2024 11:34 AM EDT Based on my personal review of the patient's chart, medical history, and available imaging it is myassessment that new images will need to be obtained for appropriate clinical decision making. documented in this encounter Plan of Treatment Not on file documented as of this encounter Results * XR Shoulder Bilat (Generic) (02/08/2024 11:21 AM EDT) Compact Imaging WORKSTATION ID [id number] RAD Anatomical Region Laterality Modality Shoulder Bilateral [...] who have questions please contact the health direct care specialist that requested your imaging first. ? Electronically signed by: Kaitlin Ellis MD, [facility] ([phone]), at 02/08/2024 2:49 PM Narrative 02/08/2024 2:49 [...] patients who have questions please contactthe health direct care specialist that requested your imaging first. Electronically signed by: Kaitlin Ellis MD, [facility]([phone]), at 02/08/2024 2:49 PM Richy Paige MD IMG DX ORDERABLES documented in this encounter Visit Diagnoses Diagnosis Bilateral shoulder pain, unspecified chronicity Bilateral shoulder pain, unspecified chronicity documented in this encounter Care Teams Stratigraphy Teacher Relationship Specialty Start Date End Date Soraida Sims MD [address] [place] [address] PCP - General Family Medicine 07/30/20 documented as of this encounter
--- OUTSIDE RECORDS SUMMARY | 2024-02-25 19:32 | XMS_ITS | Encounter Summary ---
Author Organization [facility] Address [address] [place] [address] Care Team Providers Care Home Health Speech Therapist Name Role Phone Soraida Sims MD Primary Care Provider [phone] Encounter Details Date Type Department Care Team (Latest Contact Info) Description 02/08/2024 10:45 AM EDT - 02/08/2024 11:59 PM EDT [place] [facility] [address] [facility] [place] [address] Bilateral shoulder pain, unspecified chronicity Discharge Disposition: Home Social History Tobacco Use Types Packs/Day Years Used Date Smoking Tobacco: Former Cigarettes Smokeless Tobacco: Never Alcohol Use Standard Drinks/Week Comments Yes 0 (1 standard drink = 0.6 oz pur e alcohol) occational Sex and Gender Information Value Date Recorded Sex Assigned at Not on file Gender Identity Not on file Sexual Orientation Not on file documented as of this encounter Medications at Time of Discharge Medication Sig Dispensed Refills Start Date End Date Trelegy Ellipta 200-62.5-25 mcg inhaler (DPI) Inhale 1 puff into the lungs daily. 01/18/2024 LORazepam (Ativan) 0.5 mg tablet TAKE ONE TABLET BY MOUTH TWICE A DAY NEEDED FOR MORE SEVERE ANXIETY. DO NOT USE DAILY. methocarbamoL (Robaxin) 750 mg tablet TAKE ONE TABLET BY MOUTH FOUR TIMES A DAY NEEDED FOR MUSCLE SPASMS methylphenidate ER (Metadate ER) 20 mg ER tablet 02/05/2024 docusate sodium (Colace) 100 mg capsule Take 100 mg by mouth 2 times daily. ProAir HFA 90 mcg/actuation HFA Aerosol Inhaler INHALE 2 PUFFS EVERY 4 TO 6 HOURS NEEDED FOR SHORTNESS OF BREATH WHEEZING COUGH DIRECTED 03/28/2021 albuteroL (Proventil) 2.5 mg /3 mL (0.083 %) Solution for Nebulization INHALE CONTENTS OF 1 VIAL 3ML VIA NEBULIZER EVERY FOUR TO SIX HOURS NEEDED 03/17/2021 budesonide-formoteroL (Sybmicort) 80-4.5 mcg/actuation HFA Aerosol Inhaler Inhale into the lungs. 06/26/2019 celecoxib (CeleBREX) 100 mg Capsule TAKE ONE CAPSULE BY MOUTH TWICE A DAY 01/02/2021 cetirizine (ZyrTEC) 10 mg Tablet TAKE ONE TABLET BY MOUTH EVERY DAY 11/07/2020 cyclobenzaprine (Flexeril) 10 mg Tablet TAKE ONE HALF TO ONE TABLET BY MOUTH THREE TIMES DAILY NEEDED USE ONE HOUR BEFORE MRI AND NEEDED 02/27/2021 fluticasone propionate (Flonase) 50 mcg/actuation [place], Suspension by Nasal route. 06/26/2020 gabapentin (Neurontin) 100 mg Capsule Take by mouth. 06/26/2019 ibuprofen (Advil) 200 mg Tablet Take by mouth. 09/18/2015 omeprazole (PriLOSEC) 20 mg Capsule, Delayed Release(E.C.) TAKE ONE CAPSULE BY MOUTH EVERY DAY 03/13/2021 oxyCODONE (ROXICODONE) 10 mg Tablet TAKE ONE TABLET BY MOUTH FOUR TIMES A DAY NEEDED 03/30/2021 pramipexole (MIRAPEX) 0.125 mg Tablet Take by mouth. 06/26/2019 Spiriva Respimat 2.5 mcg/actuation Mist INHALE 2 PUFFS BY MOUTH ONCE A DAY 01/02/2021 documented as of this encounter Plan of Treatment Not on file documented as of this encounter Procedures Procedure Name Priority Date/Time Associated Diagnosis Comments XR SHOULDER BILAT Routine 02/08/2024 11: 21 AM EDT Bilateral shoulder pain, unspecified chronicity documented in this encounter Results * XR Shoulder Bilat (Generic) (02/08/2024 11:21 AM EDT) WORKSTATION ID [id number] RAD Anatomical Region Laterality Modality Shoulder Bilateral [...] who have questions please contact the health care program director that requested your imaging first. ? Electronically signed by: Kaitlin Ellis MD, [facility] ([phone]), at 02/08/2024 2:49 PM Narrative 02/08/2024 2:49 [...] patients who have questions please contactthe health care program director that requested your imaging first. Electronically signed by: Kailtin Ellis MD, [facility]([phone]), at 02/08/2024 2:49 PM Richy Paige MD IMG DX ORDERABLES documented in this encounter Visit Diagnoses Diagnosis Bilateral shoulder pain, unspecified chronicity documented in this encounter Care Teams Home Health Speech Therapist Relationship Specialty Start Date End Date Soraida Sims MD [address] [place] [address] PCP - General Family Medicine 07/30/20 documented as of this encounter
--- OUTSIDE RECORDS SUMMARY | 2024-02-25 19:32 | XMS_ITS | Encounter Summary ---
[place] [address] Care Team Providers Care Patrol Driver Name Role Phone Soraida Sims MD Primary Care Provider [phone] Reason for Referral * Consultation (Routine) - Closed Specialty Diagnoses / Procedures Referred By Luís fairbanks Referred To Contact Orthopaedics Diagnoses Bilateral shoulder pain, unspecified chronicity Soraida Sims MD [address] [place] [address] [facility] [address] [place] [id number] Referral ID Status Reason Start Date Expiration Date V isits Requested Visits Authorized [id number] Closed Consult, Test & Treat PCP Updated and/or Approved 09/01/2022 09/01/2023 6 6 Encounter Details Date Type Department Care Team (Latest Contact Info) Description 09/01/2022 Transcribe Orders eDH Incoming Referrals [phone] Soraida Sims MD [address] [place], [place] [address] Bilateral shoulder pain, unspecified chronicity Social History Tobacco Use Types Packs/Day Years Used Date Smoking Tobacco: Every Day Smokeless Tobacco: Never Sex and Gender Information Value Date Recorded Sex Assigned at Not on file Gender Identity Not on file Sexual Orientation Not on file documented as of this encounter Plan of Treatment Scheduled Referrals Name Type Priority Associated Diagnoses Orde r Schedule Referral to Orthopaedics Outpatient Referral Routine Bilateral shoulder pain, unspecified chronicity Ordered: 09/01/2022 documented as of this encounter Visit Diagnoses Diagnosis Bilateral shoulder pain, unspecified chronicity documented in this encounter Care Teams Patrol Driver Relationship Specialty Start Date End Date Soraida Sims MD [address] [place] [address] PCP - General Family Medicine 07/30/20 documented as of this encounter
--- OUTSIDE RECORDS SUMMARY | 2024-02-25 19:32 | XMS_ITS | Encounter Summary ---
Author Organization [facility] Address [address] [place] [address] Care Team Providers Care Mail Room Name Role Phone Unknown, Provider Primary Care Provider Encounter Details Date Type Department Care Team (Late st Contact Info) Description 09/27/2020 Lab Requisition [facility] Pathology & Laboratory Medicine - [facility] [address] [place] [address] Sheryl Tanner, DO [address] [place] [address] Encounter for other general examination Social History [...] Date/Time Associated Diagnosis Comments SURGICAL PATHOLOGY Today 09/27/2020 9: 07 EDT Encounter for other general examination documented in this encounter Results * SURGICAL PATHOLOGY (09/27/2020 9:07 EDT) Final Diagnosis A. DUODENUM, BULB, BIOPSY: - Duodenal bulb mucosa with mild peptic duodenitis. B. STOMACH, ANTRUM, BIOPSY: - Gastric antral mucosa with mild reactive (chemical) gastropathy. C. SUBMITTED STOMACH, GREATER CURVE, BIOPSY: - Small bowel mucosa with no specific pathologic features. D. GASTROESOPHAGEAL JUNCTION, BIOPSY: - Squamocolumnar junctional mucosa with reflux esophagitis. - Negative for intestinal metaplasia; Negative for dysplasia. E. ESOPHAGUS, DISTAL, BIOPSY: - Squamous mucosa with mild reactive changes. 10/01/2020 12:12 [facility] Attestation By the signature below, the attending physician certifies that they have 1) personally conducted a gross and/or microscopic examination of the described specimen(s), and/or personally interpreted the results of laboratory testing of the described specimen(s), and 2) personally rendered or confirmed the above diagnosis. 10/01/2020 12:12 [facility] at 1212 Clinical History Epigastric pain 10/01/2020 12:12 [facility] Gross Description A. Received in formalin labelled with proper patient identification (initials P, K) and duodenal bulb Bx is a pale-pedroza focally brown speckled tissue (0.3 x 0.3 x 0.2 cm). Submitted intact in A1. B. Received in formalin labelled with proper patient identification (initials P, K) and antrum Bx is a pale-pedroza to brown tissue (0.3 x 0.3 x 0.2 cm). Submitted intact in B1. C. Received in formalin labelled with proper patient identification (initials P, K) and greater curve Bx is a pale pedroza to brown tissue (0.5 x 0.3 x 0.2 cm). Submitted intact in C1. D. Received in formalin labelled with proper patient identification (initials P, K) and GE junction Bx is a white tissue (0.5 x 0.3 x 0.2 cm). Submitted intact in D1. E. Received in formalin labelled with proper patient identification (initials P, K) and distal esophagus Bx is a white focally brown speckled tissue (0.3 x 0.2 x 0.2 cm). Submitted intact in E1. Jeff Malone 09/28/2020 10:39 10/01/2020 12:12 [facility] Performing Lab [facility] 12:12 [facility] Scanned Images 10/01/2020 12:12 EDT [facility] Tissue ENTIRE ESOPHAGUS / Unknown 09/27/2020 9:07 EDT 09/27/2020 16:26 EDT Tissue specimen (specimen) STOMACH STRUCTURE / Unknown 09/27/2020 9:07 EDT 09/27/2020 16:26 EDT Tissue specimen (specimen) STOMACH STRUCTURE / Unknown 09/27/2020 9:07 EDT 09/27/2020 16:26 EDT Tissue specimen (specimen) ESOPHAGEAL STRUCTURE / Unknown 09/27/2020 9:07 EDT 09/27/2020 16:26 EDT Tissue specimen (specimen) ESOPHAGEAL STRUCTURE / Unknown 09/27/2020 9:07 EDT 09/27/2020 16:26 EDT Sheryl Tanner DO PATHOLOGY ORDERABLES Performing Organization Address City/State/[facility] Co de Phone Number [facility] [address] [place] [address] documented in this encounter Visit Diagnoses Diagnosis Encounter for other general examination documented in this encounter Care Teams Mail Room Relationship Specialty Start Date End Date Unknown, Provider, PCP - General 04/27/15 documented as of this encounter
--- OUTSIDE RECORDS SUMMARY | 2024-02-25 19:32 | XMS_ITS | Encounter Summary ---
Author Organization [facility] Address [address] [place] [address] Care Team Providers Care Motor Vehicle Or Caravan Salesperson Name Role Phone Unknown, Provider Primary Care Provider Encounter Details Date Type Department Care Team (Late st Contact Info) Description 09/03/2019 Lab Requisition [facility] Pathology & Laboratory Medicine - [facility] [address] [place] [address] Abhishek Campbell MD [address] [place] [phone] Encounter for other general examination Social History [...] Procedure Name Priority Date/Time Associated Diagnosis Comments COVID-19 TESTING Today 09/01/2019 14:1 5 EDT Encounter for other general examination documented in this encounter Results * COVID-19 TEST STATE [facility] (09/01/2019 14:15 EDT) COVID-19 Result Not Detected Not Detected 09/13/2019 9:30 EDT [facility] Comment:Testing performed at [facility], [place], [place] Swab ENTIRE NASOPHARYNX / Unknown 09/01/2019 14:15 EDT 09/03/2019 9:04 EDT Abhishek Campbell MD MICROBIOLOGY - [facility] ORDERABLES [facility] [address] [place] [address] documented in this encounter Visit Diagnoses Diagnosis Encounter for other general examination documented in this encounter Care Teams Motor Vehicle Or Caravan Salesperson Relationship Specialty Start Date End Date Unknown, Provider, PCP - General 04/27/15 documented as of this encounter
--- OUTSIDE RECORDS SUMMARY | 2024-02-25 19:32 | XMS_ITS | Encounter Summary ---
Author Organization [facility] Address [facility] [place] [address] Care Team Providers Care Apple Thinner Name Role Phone Soraida Sims MD Primary Care Provider [phone] Encounter Details Date Type Department Care Team (Late st Contact Info) Description 04/10/2021 Orders Only Radiology at [facility] [place] [address] Olman Gonzalez MD [facility] [place] [address] Social History Tobacco Use Types Packs/Day Years [...] on filedocumented in this encounter Care Teams Apple Thinner Relationship Specialty Start Date End Date Soraida Sims MD [address] [place] [address] PCP - General Family Medicine 07/30/20 documented as of this encounter
--- OUTSIDE RECORDS SUMMARY | 2024-02-25 19:32 | XMS_ITS | Encounter Summary ---
Author Organization [facility] Address [facility] [place] [address] Care Team Providers Care Plant Mechanic Name Role Phone Soraida Sims MD Primary Care Provider [phone] Reason for Referral * Diagnostic Test (Routine) - Closed Specialty Diagnoses / Procedures Referred By Contac t Referred To Contact Radiology Diagnoses Primary osteoarthritis of right shoulder Procedures XR Fluoro Guided Joint Injection Large Right Richy Paige MD [facility] [place] [address] [facility] Rad Xray [address] [place] [address] [place] [address] Referral ID Status Reason Start Date Expiration Date V isits Requested Visits Authorized [id number] Closed Specialty Service Requested 04/10/2021 10/09/2022 1 1 * Diagnostic Test (Routine) - Closed Specialty Diagnoses / Procedures Referred By Contac t Referred To Contact Radiology Diagnoses Primary osteoarthritis of left shoulder Procedures XR Fluoro Guided Joint Injection Large Left Richy Paige MD [facility] [place] [address] [facility] Rad Xray [address] [place] [address] [place] [address] Referral ID Status Reason Start Date Expiration Date V isits Requested Visits Authorized [id number] Closed Specialty Service Requested 04/10/2021 10/09/2022 1 1 Reason for Visit * Diagnostic Test (Routine) - Closed Specialty Diagnoses / Procedures Referred By Contac t Referred To Contact Radiology Diagnoses Primary osteoarthritis of left shoulder Procedures XR Fluoro Guided Joint Injection Large Left Richy Paige MD [facility] [place] [address] [facility] Rad Xray [address] [place] [address] Dr Louis [place] [phone] Referral ID Status Reason Start Date Expiration Date V isits Requested Visits Authorized [id number] Closed Specialty Service Requested 04/10/2021 10/09/2022 1 1 Encounter Details Date Type Department Care Team (Latest Contact Info) Description 05/13/2021 10:45 AM EST - 05/13/2021 11:59 PM EST Hospital Encounter XRay at [address] [place] [address] Richy Paige MD [facility] [address] [place] [address] Primary osteoarthritis of left shoulder; Primary osteoarthritis of right shoulder Discharge Disposition: Home Social History Tobacco Use Types Packs/Day Years Used Date Smoking Tobacco: Every Day Smokeless Tobacco: Never Sex and Gender Information Value Date Recorded Sex Assigned at Not on file Gender Identity Not on file Sexual Orientation Not on file documented as of this encounter Discharge Instructions * Patient Instructions* Venkata Lennie G - 05/13/2021 11:48 AM EST Post Injection Patient Instructions You received an injection by JOSELO SILVEIRA in the diagnostic section of radiology. Procedure: BILATERAL SHOULDER STEROID INJECTIONSIn the days following the injection: ??? Low intensity movement and exercise of the affected joint. ??? Avoid movements that worsen pain. During the first 48 hours following the injection you may experience mild discomfort at the injection site. If you experience pain or discomfort in the affected area, do the following: ??? Apply cold compress to the affected area. ??? If allowed by your physician, take an anti-inflammatory medication such as ibuprofen (example: Advil), Acetaminophen 9example: Tylenol) or Aspirin. IMPORTANT The risk of infection exists whenever the skin is punctured. The risk can be minimized by keeping the injection site clean. However, be aware of the following signs of an infection: ??? Redness and swelling at the injection site. ??? Increased pain. ??? Fever and/or chills. ??? Decreased range of motion in the joint near the injection site. If you experience any of the signs of infection listed above, telephone the diagnostic section of radiology at [phone]. documented in this encounter Medications at Time of Discharge Medication Sig Dispensed Refills Start Date End Date ProAir HFA 90 mcg/actuation HFA Aerosol Inhaler [...] NEEDED 02/27/2021 fluticasone propionate (Flonase) 50 mcg/actuation [place], Suspension by Nasal route. 06/26/2020 gabapentin (Neurontin) [...] Name Priority Date/Time Associated Diagnosis Comments XR FLUORO INJECTION DRAINAGE JOINT LG RIGHT Routine 05/13/2021 11:57 AM EST Primary osteoarthritis of right shoulder XR FLUORO INJECTION DRAINAGE JOINT LG LEFT Routine 05/13/2021 11:57 AM EST Primary osteoarthritis of left shoulder documented in this encounter Results * XR Fluoro Guided Joint Injection Large Right (05/13/2021 11:57 AM EST) Anatomical Region Laterality Modality Right Radio Fluoroscop y Impressions 05/13/2021 1:36 PM EST Uneventful right shoulder GH joint injection under fluoroscopy. Resident/Fellow: None Attending: None Procedure performed by Joselo Silveira APRN Thank you for letting us participate in the care of this patient. ??If you are a health care provider and have any questions regarding this report, please contact the number below. ??For patients who have questions please contact the health lawn care professional that requested your imaging first. ? Narrative 05/13/2021 1:36 PM EST HISTORY: Right shoulder arthritis RIGHT SHOULDER GH JOINT INJECTION UNDER FLUOROSCOPY TECHNIQUE: After an extensive conversation with the patient regarding risks and benefits, oral and written consent were obtained.?A pre- procedural time-out was performed, including review of the patient's relevant electronic medical record and allergies, as per [facility] protocol. The patient was placed supine on the fluoroscopic table. ??The skin overlying the right anterior shoulder was prepped and draped in the usual aseptic manner. 1% Lidocaine was used to achieve local anesthesia. Under fluoroscopic guidance, 22 gauge needle was advanced into the joint space. ??Small amount of air was injected to document needle placement. ??A mixture of Ropivacaine and Methylprednisolone was injected. All needles removed at end of procedure. FINDINGS: 1. ??Small amount of injected air in the right shoulder joint space. 2. ??PAIN SCORE: ??Before: 5/10 ??After: 06/23 3. Fluoroscopy time: 0.07 minutes 4. Medications: ??Lidocaine 1% - <5 ml, for subcutaneous anesthesia ??Ropivacaine HCL ??0.5% - 4 ml ??Methylprednisolone ??- 40 mg COMPLICATIONS: ??None immediate. POST-PROCEDURE CARE: Information regarding monitor of infection, post- procedural pain and management of steroid flare were reviewed with patient. Procedure Note Joselo Silveira APRN - 05/13/2021 HISTORY: Right shoulder arthritis RIGHT SHOULDER GH JOINT INJECTION UNDER FLUOROSCOPY TECHNIQUE: After an extensive conversation with the patient regarding risks andbenefits, oral and written consent were obtained.?A pre- procedural time-out was performed, including review of the patient's relevant electronic medicalrecord and allergies, as per [facility] protocol. The patient was placed supine on the fluoroscopic table. The skinoverlying the right anterior shoulder was prepped and draped in the usual asepticmanner. 1% Lidocaine was used to achieve local anesthesia. Under fluoroscopicguidance, 22 gauge needle was advanced into the joint space. Small amount of air was injected to document needle placement. A mixture of Ropivacaine and Methylprednisolone was injected. All needles removed at end ofprocedure. FINDINGS: 1. Small amount of injected air in the right shoulder joint space. 2. PAIN SCORE: Before: 5/10 After: 06/23 3. Fluoroscopy time: 0.07 minutes 4. Medications: Lidocaine 1% - <5 ml, for subcutaneous anesthesia Ropivacaine HCL 0.5% - 4 ml Methylprednisolone - 40 mg COMPLICATIONS: None immediate. POST-PROCEDURE CARE: Information regarding monitor of infection, post- procedural pain and management of steroid flare were reviewed withpatient. IMPRESSION Uneventful right shoulder GH joint injection under fluoroscopy. Resident/Fellow: None Attending: None Procedure performed by Joselo Silveira APRN Thank you for letting us participate in the care of this patient. If youare a health care provider and have any questions regarding this report,please contact the number below. For patients who have questions please contactthe health lawn care professional that requested your imaging first. Richy Paige MD IMG FLUORO ORDERABLE S * XR Fluoro Guided Joint Injection Large Left (05/13/2021 11:57 AM EST) Anatomical Region Laterality Modality Left Radio Fluoroscop y Impressions 05/13/2021 1:32 PM EST Uneventful left shoulder GH joint injection under fluoroscopy. Resident/Fellow: None Attending: None Procedure performed by oJselo Silveira APRN Thank you for letting us participate in the care of this patient. ??If you are a health care provider and have any questions regarding this report, please contact the number below. ??For patients who have questions please contact the health lawn care professional that requested your imaging first. ? Narrative 05/13/2021 1:32 PM EST HISTORY: Left shoulder arthritis. LEFT SHOULDER GH JOINT INJECTION UNDER FLUOROSCOPY TECHNIQUE: After an extensive conversation with the patient regarding risks and benefits, oral and written consent were obtained.?A pre- procedural time-out was performed, including review of the patient's relevant electronic medical record and allergies, as per [facility] protocol. The patient was placed supine on the fluoroscopic table. ??The skin overlying the left anterior shoulder was prepped and draped in the usual aseptic manner. 1% Lidocaine was used to achieve local anesthesia. Under fluoroscopic guidance, 22 gauge 3.5 inch spinal needle was advanced into the joint space. ??Small amount of Omnipaque 300 was injected to document needle placement. ??A mixture of Ropivacaine and Methylprednisolone was injected. All needles removed at end of procedure. FINDINGS: 1. ??Small amount of injected contrast in the left shoulder joint space. 2. ??PAIN SCORE: ??Before: 5/10 ??After: 06/23 3. Fluoroscopy time: 0.45 minutes 4. Medications: ??Lidocaine 1% - <5 ml, for subcutaneous anesthesia ??Ropivacaine HCL ??0.5% - 4 ml ??Methylprednisolone ??- 40 mg COMPLICATIONS: ??None immediate. POST-PROCEDURE CARE: Information regarding monitor of infection, post- procedural pain and management of steroid flare were reviewed with patient. Procedure Note Joselo Silveira APRN - 05/13/2021 HISTORY: Left shoulder arthritis. LEFT SHOULDER GH JOINT INJECTION UNDER FLUOROSCOPY TECHNIQUE: After an extensive conversation with the patient regarding risks andbenefits, oral and written consent were obtained.?A pre- procedural time-out was performed, including review of the patient's relevant electronic medicalrecord and allergies, as per [facility] protocol. The patient was placed supine on the fluoroscopic table. The skinoverlying the left anterior shoulder was prepped and draped in the usual aseptic manner.1% Lidocaine was used to achieve local anesthesia. Under fluoroscopicguidance, 22 gauge 3.5 inch spinal needle was advanced into the joint space. Smallamount of Omnipaque 300 was injected to document needle placement. A mixture of Ropivacaine and Methylprednisolone was injected. All needles removed atend of procedure. FINDINGS: 1. Small amount of injected contrast in the left shoulder joint space. 2. PAIN SCORE: Before: 5/10 After: 06/23 3. Fluoroscopy time: 0.45 minutes 4. Medications: Lidocaine 1% - <5 ml, for subcutaneous anesthesia Ropivacaine HCL 0.5% - 4 ml Methylprednisolone - 40 mg COMPLICATIONS: None immediate. POST-PROCEDURE CARE: Information regarding monitor of infection, post- procedural pain and management of steroid flare were reviewed withpatient. IMPRESSION Uneventful left shoulder GH joint injection under fluoroscopy. Resident/Fellow: None Attending: None Procedure performed by Joselo Silveira APRN Thank you for letting us participate in the care of this patient. If youare a health care provider and have any questions regarding this report,please contact the number below. For patients who have questions please contactthe health lawn care professional that requested your imaging first. Richy Paige MD IMG FLUORO ORDERABLE S documented in this encounter Visit Diagnoses Diagnosis Primary osteoarthritis of left shoulder Primary localized osteoarthrosis, shoulder region Primary osteoarthritis of right shoulder Primary localized osteoarthrosis, shoulder region documented in this encounter Administered Medications Inactive Administered Medications - up to 3 most recent administrations Medication Order MAR Action Action Date Dose Rate Site iohexoL (Omnipaque) (300 mg/mL) solution 3 mL 3 mL, Intra-articular, ONCE PRN, 1 dose, Starting on Wed05/13/21 at 1124, Until Wed05/13/21 at 1219, Per Protocol, Warning Vesicant/Irritant Medication , Routine Given 05/13/2021 12:19 PM EST 3 mLs methylPREDNISolone acetate (DEPO-Medrol) (40 mg/mL) injection 0-160 mg 0-160 mg, Intra-articular, ONCE, 1 dose, On Wed05/13/21 at 1230, Radiology Protocol Medication, Routine Given 05/13/2021 12:30 PM EST 40 mg methylPREDNISolone acetate (DEPO-Medrol) (40 mg/mL) injection 0-160 mg 0-160 mg, Intra-articular, ONCE, 1 dose, On Wed05/13/21 at 1230, Radiology Protocol Medication, Routine Given 05/13/2021 12:30 PM EST 40 mg ROpivacaine (PF) (Naropin) 0.5% (5 mg/mL) injection 0-50 mg 0-50 mg (0-10 mL), Epidural, ONCE, 1 dose, On e 05/13/21 at 1230, Radiology Protocol Medication, Routine Given 05/13/2021 12:30 PM EST 10 mg ROpivacaine (PF) (Naropin) 0.5% (5 mg/mL) injection 0-50 mg 0-50 mg (0-10 mL), Epidural, ONCE, 1 dose, On 11/30/21 at 1230, Radiology Protocol Medication, Routine Given 05/13/2021 12:30 PM EST 10 mg documented in this encounter Care Teams Plant Mechanic Relationship Specialty Start Date End Date Soraida Sims MD [address] [place] [address] PCP - General Family Medicine 07/30/20 documented as of this encounter
--- OUTSIDE RECORDS SUMMARY | 2024-02-25 19:32 | XMS_ITS | Encounter Summary ---
Author Organization [facility] Address [facility] [place] [address] Care Team Providers Care Ep Specialist Name Role Phone Radha Mo PROFILE STITCHING MACHINE OPERATOR Primary Care Provider + Encounter Details Date Type Department Care Team (Late st Contact Info) Description 06/26/2020 Ancillary Procedure Radiology Library at [facility] [place] [phone] Radha Mo APRN [address] [place] [address] Social History Tobacco Use Types Packs/Day Years [...] Associated Diagnosis Comments FILM LIBRARY STORAGE ONLY DX SHOULDER Routine 06/26/2020 12:00 AM EST documented in this encounter Results * Film Library- Storage Only DX Shoulder (06/26/2020 12:00 AM EST) Narrative [facility] - 07/23/2020 7:52 PM EST This exam is auto-finalizing. It's purpose is for storage only. Radha Mo APRN IMG FILM LIBRARY ORDERABLES [place], [place] documented in this encounter Visit Diagnoses Not on filedocumented in this encounter Care Teams Ep Specialist Relationship Specialty Start Date End Date Radha Mo APRN PCP - General 05/06/10 07/29/20 documented as of this encounter
--- OUTSIDE RECORDS SUMMARY | 2024-02-25 19:32 | XMS_ITS | Encounter Summary ---
Author Organization [facility] Address [address] [place] [address] Care Team Providers Care Grain Picker Name Role Phone Unknown, Provider Primary Care Provider Encounter Details Date Type Department Care Team (Late st Contact Info) Description 01/02/2021 Lab Requisition [facility] Pathology & Laboratory Medicine - [address] [address] Outr Resulting Lab, Provider Social History Tobacco Use Types Packs/Day Years [...] Procedure Name Priority Date/Time Associated Diagnosis Comments ZZCOVID-19 TEST [facility] PCR Today 01/02/2021 14:00 EDT COVID-19 TESTING Routine 01/02/2021 14:0 0 EDT documented in this encounter Results * COVID-19 TEST [facility] PCR (01/02/2021 14:00 EDT) Swab ENTIRE NASOPHARYNX / Unknown 01/02/2021 14:00 EDT 01/03/2021 16:04 EDT Provider Outr Resulting Lab MICROBIOLOGY - GENERAL ORDERABLES [facility] [address] [place] [address] * COVID-19 TESTING (01/02/2021 14:00 EDT) COVID-19 rt-PCR Result Negative Negative 01/04/2021 12:56 EDT [facility] Comment: This test has not been FDA cleared or approved. This test has been authorized by FDA under an EUA for use by authorized laboratories. This test has been authorized only for detection of nucleic acid from 2019-nCoV, not for any other viruses or pathogens. This test is only authorized for the duration of the declaration that circumstances exist justifying the authorization of emergency use of in vitro diagnostic tests for detection and/or diagnosis of 2019-nCoV under section 564(b)(1) of Act, 21 U.S.C ?? 360bbb-3(b) (1), unless the authorization is terminated or revoked sooner. Negative results do not preclude 2019-nCoV infection and should not be used as the sole basis for treatment or other patient management decisions. Negative results must be combined with clinical observations, patient history, and epidemiological information. Testing was performed using the shabbir SARS-CoV-2 assay ([employer] on the Shabbir 6800 System Performing Lab Shabbir [address] [facility] Lab 01/04/2021 12:56 EDT [facility] Swab 01/02/2021 14:0 0 EDT 01/03/2021 16:04 EDT Provider Outr Resulting Lab MICROBIOLOGY - GENERAL ORDERABLES [facility] [address] [place] [address] documented in this encounter Visit Diagnoses Not on filedocumented in this encounter Care Teams Grain Picker Relationship Specialty Start Date End Date Unknown, Provider, PCP - General 04/27/15 documented as of this encounter
--- OUTSIDE RECORDS SUMMARY | 2024-02-25 19:32 | XMS_ITS | Encounter Summary ---
[place] [address] Care Team Providers Care Head Of Marketing Adometry Name Role Phone Soraida Sims MD Primary Care Provider [phone] Reason for Referral * Consultation (Routine) - Pending Review Specialty Diagnoses / Procedures Referred By Luís fairbanks Referred To Contact Orthopaedics Diagnoses Shoulder pain, unspecified chronicity, unspecified laterality READY FOR EMMANUEL TOTAL SHOULDER REPLACEMENTS Soraida Sims MD [address] [place] [address] [facility] [address] [place] [phone] Referral ID Status Reason Start Date Expiration Date Visits Requested Visits Authorized [id number] Pending Review Consult, Test & Treat PCP Updated and/or Approved 01/17/2024 01/16/2025 6 6 Encounter Details Date Type Department Care Team (Latest Contact Info) Description 01/17/2024 Transcribe Orders eDH Incoming Referrals [phone] Soraida Sims MD [address] [place], [place] [id number] Shoulder pain, unspecified chronicity, unspecified laterality Social History Tobacco Use Types Packs/Day Years Used Date Smoking Tobacco: Every Day Smokeless Tobacco: Never Sex and Gender Information Value Date Recorded Sex Assigned at Not on file Gender Identity Not on file Sexual Orientation Not on file documented as of this encounter Plan of Treatment Scheduled Referrals Name Type Priority Associated Diagnoses Orde r Schedule Referral to Orthopaedics Outpatient Referral Routine Shoulder pain, unspecified chronicity, unspecified laterality Ordered: 01/17/2024 documented as of this encounter Visit Diagnoses Diagnosis Shoulder pain, unspecified chronicity, unspecified laterality documented in this encounter Care Teams Head Of Marketing Adometry Relationship Specialty Start Date End Date Soraida Sims MD [address] [place] [address] PCP - General Family Medicine 07/30/20 documented as of this encounter
--- OUTSIDE RECORDS SUMMARY | 2024-02-25 19:32 | XMS_ITS | Encounter Summary ---
Author Organization [facility] Address [facility] [place] [address] Care Team Providers Care Battery Checker Name Role Phone Soraida Sims MD Primary Care Provider [phone] Reason for Referral * Diagnostic Test (Routine) - Closed Specialty Diagnoses / Procedures Referred By Contac t Referred To Contact Radiology Diagnoses Primary osteoarthritis of right shoulder Procedures XR Fluoro Guided Joint Injection Large Right Ricyh Paige MD [facility] [place] [address] [facility] Rad Xray [address] [place] [address] [place] [address] Referral ID Status Reason Start Date Expiration Date V isits Requested Visits Authorized [id number] Closed Specialty Service Requested 04/10/2021 10/09/2022 1 1 * Diagnostic Test (Routine) - Closed Specialty Diagnoses / Procedures Referred By Contac t Referred To Contact Radiology Diagnoses Primary osteoarthritis of left shoulder Procedures XR Fluoro Guided Joint Injection Large Left Richy Paige MD [facility] [place] [address] [facility] Rad Xray [address] [place] [address] [place] [address] Referral ID Status Reason Start Date Expiration Date V isits Requested Visits Authorized [id number] Closed Specialty Service Requested 04/10/2021 10/09/2022 1 1 Encounter Details Date Type Department Care Team (Late st Contact Info) Description 04/10/2021 Telephone Orthopaedics at [facility] [place] [place] [address] Richy Paige MD [facility] [place] [address] Social History Tobacco Use Types Packs/Day Years Used Date Smoking Tobacco: Every Day Smokeless Tobacco: Never Sex and Gender Information Value Date Recorded Sex Assigned at Not on file Gender Identity Not on file Sexual Orientation Not on file documented as of this encounter Miscellaneous Notes * Telephone Encounter - Richy Paige MD - 04/10/2021 3:44 PM EDT I called the patient to discuss her shoulder pain. She contacted the surgical schedulers this week and mentioned that she wanted to move forward with shoulder replacement. This was surprising to me as she had shown no interest in this at her recent appointment. 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 She is tired of her pain and feels like a shoulder replacement may be her only option. We did discuss that the changing of her job may be enough to help provide her with significant relief. Additionally, I think that she be a good candidate for an intra-articular steroid injection. I was under the impression initially that she had tried this previously, but it turns out that these were most likely subacromial injections. I will order bilateral shoulder injectionstoday. I will see her back in approximately 3 to 6 months if her symptoms have not improved to her liking. documented in this encounter Plan of Treatment Not on file documented as of this encounter Results * XR Fluoro Guided Joint Injection Large Right (05/13/2021 11:57 AM EST) Anatomical Region Laterality Modality Right Radio Fluoroscop y Impressions 05/13/2021 1:36 PM EST Uneventful right shoulder GH joint injection under fluoroscopy. Resident/Fellow: None Attending: None Procedure performed by Carole Marcelo APRN Thank you for letting us participate in the care of this patient. ??If you are a health care provider and have any questions regarding this report, please contact the number below. ??For patients who have questions please contact the health care technician that requested your imaging first. ? Narrative 05/13/2021 1:36 PM EST HISTORY: Right shoulder arthritis RIGHT SHOULDER GH JOINT INJECTION UNDER FLUOROSCOPY TECHNIQUE: After an extensive conversation with the patient regarding risks and benefits, oral and written consent were obtained.?A pre- procedural time-out was performed, including review of the patient's relevant electronic medical record and allergies, as per [facility] protocol. The patient was placed supine on [...] space. 2. ??PAIN SCORE: ??Before: 5/10 ??After: 1/10 3. Fluoroscopy time: 0.07 minutes 4. Medications: ??Lidocaine 1% - <5 ml, for subcutaneous anesthesia ??Ropivacaine HCL ??0.5% - 4 ml ??Methylprednisolone ??- 40 mg COMPLICATIONS: ??None immediate. POST-PROCEDURE CARE: Information regarding monitor of infection, post- procedural pain and management of steroid flare were reviewed with patient. Procedure Note Carole Marcelo APRN - 05/13/2021 HISTORY: Right shoulder arthritis RIGHT SHOULDER GH JOINT INJECTION UNDER FLUOROSCOPY TECHNIQUE: After an extensive conversation with the patient regarding risks andbenefits, oral and written consent were obtained.?A pre- procedural time-out was performed, including review of the patient's relevant electronic medicalrecord and allergies, as per [facility] protocol. The patient was placed supine on [...] Resident/Fellow: None Attending: None Procedure performed by Carole Marcelo APRN Thank you for letting us participate in the care of this patient. If youare a health care provider and have any questions regarding this report,please contact the number below. For patients who have questions please contactthe health care technician that requested your imaging first. Richy Paige MD IMG FLUORO ORDERABLE S * XR Fluoro Guided Joint Injection Large Left (05/13/2021 11:57 AM EST) Anatomical Region Laterality Modality Left Radio Fluoroscop y Impressions 05/13/2021 1:32 PM EST Uneventful left shoulder GH joint injection under fluoroscopy. Resident/Fellow: None Attending: None Procedure performed by Carole Marcelo APRN Thank you for letting us participate in the care of this patient. ??If you are a health care provider and have any questions regarding this report, please contact the number below. ??For patients who have questions please contact the health care technician that requested your imaging first. ? Narrative 05/13/2021 1:32 PM EST HISTORY: Left shoulder arthritis. LEFT SHOULDER GH JOINT INJECTION UNDER FLUOROSCOPY TECHNIQUE: After an extensive conversation with the patient regarding risks and benefits, oral and written consent were obtained.?A pre- procedural time-out was performed, including review of the patient's relevant electronic medical record and allergies, as per [facility] protocol. The patient was placed supine on [...] space. 2. ??PAIN SCORE: ??Before: 5/10 ??After: 1/10 3. Fluoroscopy time: 0.45 minutes 4. Medications: ??Lidocaine 1% - <5 ml, for subcutaneous anesthesia ??Ropivacaine HCL ??0.5% - 4 ml ??Methylprednisolone ??- 40 mg COMPLICATIONS: ??None immediate. POST-PROCEDURE CARE: Information regarding monitor of infection, post- procedural pain and management of steroid flare were reviewed with patient. Procedure Note Carole Marcelo APRN - 05/13/2021 HISTORY: Left shoulder arthritis. LEFT SHOULDER GH JOINT INJECTION UNDER FLUOROSCOPY TECHNIQUE: After an extensive conversation with the patient regarding risks andbenefits, oral and written consent were obtained.?A pre- procedural time-out was performed, including review of the patient's relevant electronic medicalrecord and allergies, as per [facility] protocol. The patient was placed supine on [...] Resident/Fellow: None Attending: None Procedure performed by Craole Marcelo APRN Thank you for letting us participate in the care of this patient. If youare a health care provider and have any questions regarding this report,please contact the number below. For patients who have questions please contactthe health care technician that requested your imaging first. Richy Paige MD IMG FLUORO ORDERABLE S documented in this encounter Visit Diagnoses Diagnosis Primary osteoarthritis of left shoulder Primary localized osteoarthrosis, shoulder region Primary osteoarthritis of right shoulder Primary localized osteoarthrosis, shoulder region Primary osteoarthritis of left shoulder Primary localized osteoarthrosis, shoulder region Primary osteoarthritis of right shoulder Primary localized osteoarthrosis, shoulder region documented in this encounter Care Teams Battery Checker Relationship Specialty Start Date End Date Soraida Sims MD [address] [place] [id number] PCP - General Family Medicine 07/30/20 documented as of this encounter
--- OUTSIDE RECORDS SUMMARY | 2024-02-25 19:32 | XMS_ITS | Encounter Summary ---
Author Organization [facility] Address [address] [place] [address] Care Team Providers Care Shipyard Painter Apprentice Name Role Phone Unknown, Provider Primary Care Provider Encounter Details Date Type Department Care Team (Late st Contact Info) Description 09/14/2022 Lab Requisition [facility] Pathology & Laboratory Medicine - [facility] [address] [place] [address] Tana Santoro MD [address] [place] [address] [place] [address] Diverticulitis of intestine, part unspecified, with perforation and abscess without bleeding Social History Tobacco Use Types Packs/Day Years [...] Date/Time Associated Diagnosis Comments SURGICAL PATHOLOGY Today 09/12/2022 18 :31 EDT Diverticulitis of intestine, part unspecified, with perforation and abscess without bleeding documented in this encounter Results * SURGICAL PATHOLOGY (09/12/2022 18:31 EDT) Note to Patient The following pathology results have been interpreted by your pathologist and may be available to you before your health provider has had the opportunity to review them. Please allow time for your provider to receive these results and explore management options, if applicable. 09/16/2022 15:27 [facility] Final Diagnosis A. COLON, SIGMOID, RESECTION: - Diverticular disease and acute diverticulitis, with associated fibrosis of pericolonic soft tissue and acute serositis. 09/16/2022 15:27 [facility] Attestation By the signature below, the attending physician certifies that they have 1) personally conducted a gross and/or microscopic examination of the described specimen(s), and/or personally interpreted the results of laboratory testing of the described specimen(s), and 2) personally rendered or confirmed the above diagnosis. 09/16/2022 15:27 [facility] at 1527 Clinical History Intra-abdominal abscess +free air in abdomen 09/16/2022 15:27 [facility] Gross Description A. Received in formalin labelled with proper patient identification (initials P, K) and sigmoid colon, suture at distal sigmoid are 2 segments of bowel (3.0 cm in length by 4.5 cm in diameter and 12.5 cm in length by 4.0 cm in diameter) each with 2 stapled margins. The serosa of the shorter bowel segment is smooth and dark purple. Sectioning reveals pink-pedroza mucosa with the usual folds. The wall thickness averages 0.3 cm. No masses or lesions are identified. The serosa of the longer bowel segment is mostly smooth and purple-whitman with pedroza green exudate scattered throughout. A suture is present at the distal margin. Two full-thickness defects are present (2.0 cm and 3.5 cm). The smaller defect is located at the distal end and the larger at the proximal end. Sectioning reveals pink-pedroza mucosa with the usual folds. Multiple diverticula are present throughout the entire specimen (ranging up to 1.5 cm in greatest dimension). The diverticula do not extend to the defect previously identified. Sheet Manufacturing Supervisor sections are submitted as follows: BLOCK GROVER A1-A4- stapled margins from shorter bowel segment, en face (A1-A2 is 1 bisected section, A3-A4 is 1 bisected section) A5-A6- proximal margin, bisected and submitted en face A7-A8- distal margin, bisected and submitted en face A9-A11- sections of diverticula FERMIN AKERS(ASCP) 09/15/2022 8:19 09/16/2022 15:27 EDT [facility] Performing Lab [facility] 09/16/2022 15:27 EDT [facility] Scanned Images 09/16/2022 15:27 EDT [facility] Tissue ENTIRE SIGMOID COLON / Unknown 09/12/2022 18:31 EDT 09/14/2022 23:39 EDT Tana Santoro MD PATHOLOGY ORDERA NILS [facility] [address] [place] [address] documented in this encounter Visit Diagnoses Diagnosis Diverticulitis of intestine, part unspecified, with perforation and abscess without bleeding documented in this encounter Care Teams Shipyard Painter Apprentice Relationship Specialty Start Date End Date Unknown, Provider, PCP - General 04/27/15 documented as of this encounter
--- OUTSIDE RECORDS SUMMARY | 2024-02-25 19:32 | XMS_ITS | Encounter Summary ---
Author Organization [facility] Address [facility] [place] [address] Care Team Providers Care Criminal Investigator Customs Name Role Phone Soraida Sims MD Primary Care Provider [phone] Reason for Visit * Reason Onset Date Comments Injections 04/15/2021 Encounter Details Date Type Department Care Team (Late st Contact Info) Description 04/15/2021 Telephone [place] [id number] Richy Paige MD [facility] [place] [address] Injections Social History Tobacco Use Types Packs/Day Years Used Date Smoking Tobacco: Every Day Smokeless Tobacco: Never Sex and Gender Information Value Date Recorded Sex Assigned at Not on file Gender Identity Not on file Sexual Orientation Not on file documented as of this encounter Miscellaneous Notes * Telephone Encounter - Bijal Perez - 04/15/2021 4:03 PM EDT Left detailed message, ok per batch scheduling instructions, for patient to arrive at location for their Injections scheduled on 05/13/21 with an arrival time of 10:30AM. Left [phone] as a call back if date and time does not work. Also a company driver is required and if you start an antibiotic prior to this scheduled appointment it will need to be re-scheduled documented in this encounter Plan of Treatment Not on file documented as of this encounter Visit Diagnoses Not on filedocumented in this encounter Care Teams Criminal Investigator Customs Relationship Specialty Start Date End Date Soraida Sims MD [address] [place] [address] PCP - General Family Medicine 07/30/20 documented as of this encounter
--- OUTSIDE RECORDS SUMMARY | 2024-02-25 19:32 | XMS_ITS | Encounter Summary ---
Author Organization [facility] Address [address] [place] [address] Care Team Providers Care Design Tech Name Role Phone Unknown, Provider Primary Care Provider [phone] Encounter Details Date Type Department Care Team (Late st Contact Info) Description 07/21/2019 Lab Requisition [facility] Pathology & Laboratory Medicine - [facility] [address] [place] [address] Unknown, Provider, Social History Tobacco Use Types Packs/Day Years Used Date Smoking Tobacco: Never Assessed Sex and Gender Information Value Date Recorded Sex Assigned at Not on file Gender Identity Not on file Sexual Orientation Not on file documented as of this encounter Plan of Treatment Not on file documented as of this encounter Procedures Procedure Name Priority Date/Time Associated Diagnosis Comments CELIAC DISEASE PANEL Routine 07/20/2019 15:10 EST documented in this encounter Results * CELIAC DISEASE PANEL (07/20/2019 15:10 EST) Tissue Transglutaminase Antibody IGA 1.6 <4.0 U/mL 07/24/2019 15:31 EST [facility] Comment: A negative result may be due to IgA deficiency and does not rule out celiac disease. ? Negative: ??<4.0 U/mL ? Weak Positive: ??4.0 - 10.0 U/mL ? Positive: ??>10.0 U/mL Results were obtained with the [employer] QUANTA Lite R h-tTG IgA DIANA assay on the [employer] DSX. IgA 198 85 - 499 mg/dL 07/24/2019 15:31 EST [facility] Celiac Disease Interpretation Negative Serology. Celiac disease unlikely. Approximately 10% of patients with celiac disease are seronegative. Patients who are already adhering to a gluten-free diet may also be seronegative. If celiac disease is highly clinically suspected, referral to gastroenterology for additional evaluation is recommended. 07/24/2019 15:31 EST [facility] Blood VENOUS BLOOD / Unknown 07/20/2019 15:10 EST 07/21/2019 21:23 EST Provider Unknown IMMUNOLOGY AND SEROL LEANDER ORDERABLES Performing Organization Address City/State/[facility] Co de Phone Number [facility] [address] [place] [address] documented in this encounter Visit Diagnoses Not on filedocumented in this encounter Care Teams Design Tech Relationship Specialty Start Date End Date Unknown, Provider, PCP - General 04/27/15 documented as of this encounter
--- OUTSIDE RECORDS SUMMARY | 2024-02-25 19:32 | XMS_ITS | Encounter Summary ---
Author Organization [facility] [place] [address] Care Team Providers Care Press Clippings Cutter And Paster Name Role Phone Soraida Sims MD Primary Care Provider [phone] Reason for Visit * Reason Comments Establish Care BILAT SHOULDER PAIN DISCUSS SURGERY * Consultation (Routine) - Pending Review Specialty Diagnoses / Procedures Referred By Luís fairbanks Referred To Contact Orthopaedics Diagnoses Shoulder pain, unspecified chronicity, unspecified laterality READY FOR EMMANUEL TOTAL SHOULDER REPLACEMENTS Soraida Sims MD [address] [place] [id number] [facility] [address] [place] [phone] Referral ID Status Reason Start Date Expiration Date Visits Requested Visits Authorized [id number] Pending Review Consult, Test & Treat PCP Updated and/or Approved 01/17/2024 01/16/2025 6 6 Encounter Details Date Type Department Care Team (Late st Contact Info) Description 02/08/2024 11:20 AM EDT [place] [address] Richy Paige MD [facility] [place] [address] Bilateral shoulder pain, unspecified chronicity Social History [...] Sign Reading Time Taken Comments Blood Pressure - - Pulse - - Temperature - - Respiratory Rate - - Oxygen Saturation - - Inhaled Oxygen Concentration - - Weight 77.1 kg (170 lb) 02/08/2024 11:39 AM EDT Height 154.9 cm (5' 1) 02/08/2024 11:39 AM EDT Body Mass Index 32.12 02/08/2024 11:39 AM EDT documented in this encounter Progress Notes * Haile Raymond MD - 02/08/2024 11:20 AM EDT Orthopaedic Surgery Clinic Note Referral: Afsaneh Lowe presents to see us in consultation today at the request of: Soraida Sims MD [address] [place] [id number] Chief Complaint: Bilateral severe shoulder pain History of Present Illness: Afsaneh Lowe is a 63 y.o. right hand dominant female who presents with bilateral chronic shoulder pain worse on the left than the right. She was referred by Dr. De La Torre and Dr. Kelly after being evaluated at [facility]. She reports a chronic history of [...] daily for pain. 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 Interval history as of today 02/08/24: For bilateral shoulder pain has worsened significantly over the past couple of years. The steroid injection that she had in her bilateral shoulders intra- articularly did not help at all and in fact made the pain worse. She has just been dealing with this since then. She did PT remotely but this also did not help. She has aching and pain in her shoulders all the time, day and night. It interferes with her sleep sleep significantly. She takes oxycodone daily for the pain and also ibuprofen intermittently, though she limits this as she has had GI bleeding in the past when taking ibuprofen. States that she is reached the point where she feels she has to do something about this and she is interested in moving forward with surgery. 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 Current Smoker: yes 1 ppd Objective: GENERAL: [...] No Range of motion (Right/Left) Forward Elevation: 100/100, 160 passive bilaterally External Rotation: 10/10, 20 passive Internal Rotation: side pockets Strength Testing: Abduction: 4+/5 with pain External Rotation: 4+/5 with pain Resisted Internal Rotation: 5/5 No Pain Rotator Cuff Testing Empty Can/Selene's: Positive Bear Hug: Negative Biceps/Labrum Groove TTP: Positive L>R Speeds: Positive Garden's: Positive AC Joint TTP: Positive / Cross-body: Positive Impingement Neer's: Positive Hawkin's: Positive Cervical Range of motion: Normal Spurling's: Negative Imaging: We independently reviewed the patient's imaging in the office today. X- rays of bilateral shoulders today 02/08/2024 with interval progression of severe bilateral glenohumeral joint arthritis from prior x-rays, large inferior humeral head osteophytes again characterized, acromiohumeral distance appears to be maintained Assessment/Plan: 63 y.o. female who presents with bilateral glenohumeral joint arthritis. We saw her for this in 2020 and she is failed nonoperative management and her pain has worsened significantlyin the interim, with imaging showing progression of her bilateral GH joint arthritis. She is interested in surgery at this point. We discussed that we would start with addressing one of the shoulders, which ever is bothering her worse, however she is not sure which is worse as they have are both very severe. Discussed that based on her exam and history it would be reasonable to pursue anatomic total shoulder arthroplasty. We discussed what the post op course would look like. She would like to think things over and give us a call with her final decision. We provided her with Dr. Paige's card and she will call us at her convenience. Haile Raymond MD 02/08/24 [facility] This note was created with the assistance of voice dictation software. Please excuse any related errors. * Richy Paige MD - 02/08/2024 11:20 AM EDT Orthopaedic Surgery Attending Note: I have seen and examined the patient in conjunction with the orthopaedic resident physician. I agree with the note as documented. The patient is a 63-year-old female with chronic bilateral shoulder pain. At this point she has failed conservative management including multiple injections. The injections did provide significant but temporary relief initially. X-ray ridging demonstrates severe bilateral gluteal arthritis with progression since her last visit 2 years ago. We do long discussion about nonoperative versus operativetreatment. The patient could continue to live with it as it is or she could move forward with anatomic total shoulder arthroplasty. We discussed that he would likely make her shoulder better but theymay not be perfect. She does have a history of chronic pain and is on opioids for this issue, making it less likely that she would have complete relief. We discussed the recovery afterwards and relevant activity limitations. At this point she will return home and consider her options. Should be in contact with us at the office if she like to move forward with surgery. documented in this encounter Plan of Treatment Not on file documented as of this encounter Visit Diagnoses Diagnosis Bilateral shoulder pain, unspecified chronicity documented in this encounter Care Teams Press Clippings Cutter And Paster Relationship Specialty Start Date End Date Soraida Sims MD [address] [place] [address] PCP - General Family Medicine 07/30/20 documented as of this encounter
--- OUTSIDE RECORDS SUMMARY | 2024-02-25 19:32 | XMS_ITS | Encounter Summary ---
Author Organization [facility] Address [address] [place] [address] Care Team Providers Care Nurse Ortho Name Role Phone Unknown, Provider Primary Care Provider [phone] Encounter Details Date Type Department Care Team (Late st Contact Info) Description 02/25/2024 Lab Requisition [facility] & [facility] - [facility] [address] [place] [address] Outr Resulting Lab, Provider Social History Tobacco [...] of this encounter Plan of Treatment Scheduled Orders Name Type Priority Associated Diagnoses Orde r Schedule SPEP, INCLUDES QUANTITATION OF MONOCLONAL SPIKE Lab Routine Ordered: 2023 PROTEIN, TOTAL Lab Today Ordered: 0 02/25/2024 SPEP, INCLUDES QUANTITATION OF MONOCLONAL SPIKE PERFORMABLE Lab Today Ord ered: 02/25/2024 documented as of this encounter Visit Diagnoses Not on filedocumented in this encounter Care Teams Nurse Ortho Relationship Specialty Start Date End Date Unknown, Provider, PCP - General 04/27/15 documented as of this encounter
--- OUTSIDE RECORDS SUMMARY | 2024-02-25 19:32 | XMS_ITS | Encounter Summary ---
Author Organization [facility] Address [facility] [place] [address] Care Team Providers Care Director Of Learning Name Role Phone Soraida Sims MD Primary Care Provider [phone] Encounter Details Date Type Department Care Team (Late st Contact Info) Description 03/14/2008 Orders [place] [address] Tono Dozier MD [facility] [address] [place] [address] Social History Tobacco Use Types Packs/Day Years Used Date Smoking Tobacco: Never Assessed Sex and Gender Information Value Date Recorded Sex Assigned at Not on file Gender Identity Not on file Sexual Orientation Not on file documented as of this encounter Plan of Treatment Not on file documented as of this encounter Procedures Procedure Name Priority Date/Time Associated Diagnosis Comments SURGICAL PATHOLOGY REPORT Routine 03/14/2008 9:56 AM EDT documented in this encounter Results * Surgical Pathology Report (03/14/2008 9:56 AM EDT) Surgical Pathology Report [id number] ? Location: [facility] The signing pathologist has (i) examined the relevant preparation(s) for the specimen(s) and (ii) rendered or confirmed the diagnosis(es). . ?Pathology Surgical Pathology Final Report Clinical Information Specimen Submitted: A - Foreign body-wood splinter, left right finger. Clinical History: Not provided Clinical Diagnosis: Deep foreign body removal, left ring finger Gross Description Labeled/Fixativ e: ? Left ring finger foreign body - wood splinter; fresh. Qty/Size/Weight : ?Single, 0.4 x 0.1 cm. Tissue Description: ?? Brown wood splinter. Sections/Proces sing: ??No sections are submitted. ??aje/SNS Diagnosis Foreign body, left ring finger, consistent with wood splinter. ?? Gross surgical pathology examination. CR-0 03/15/08 AJE 03/15/08 Verified by: ? Aure GUIDRY, Sarwat ?Pathologist ?(Electronic Signature) The attending pathologist whose signature appears on this report has reviewed all diagnostic slides and has edited the gross and/or microscopic portion of the report in rendering the final pathologic diagnosis. [facility] 03/14/2008 9:56 AM EDT Tono Dozier MD PATHOLOGY/CYTOLOGY O RDERABLES [facility] documented in this encounter Visit Diagnoses Not on filedocumented in this encounter Care Teams Director Of Learning Relationship Specialty Start Date End Date Soraida Sims MD [address] [place] [address] PCP - General Family Medicine 07/30/20 documented as of this encounter
--- OUTSIDE RECORDS SUMMARY | 2024-02-25 19:32 | XMS_ITS | Encounter Summary ---
Author Organization [facility] Address [address] [place] [address] Care Team Providers Care Steel Unloader Name Role Phone Unknown, Provider Primary Care Provider [phone] Encounter Details Date Type Department Care Team (Late st Contact Info) Description 05/16/2022 Lab Requisition [facility] Pathology & Laboratory Medicine - [facility] [address] [place] [address] Outr Resulting Lab, Provider Social History Tobacco [...] Procedure Name Priority Date/Time Associated Diagnosis Comments LYME AB Routine 05/15/2022 18:40 EST documented in this encounter Results * LYME AB (05/15/2022 18:40 EST) Lyme Ab Negative Negative 05/18/2022 10:04 EST [facility] Blood VENOUS BLOOD / Unknown 05/15/2022 18:40 EST 05/17/2022 17:01 EST Provider Outr Resulting Lab IMMUNOLOGY A ND SEROLOGY ORDERABLES [facility] [address] [place] [address] documented in this encounter Visit Diagnoses Not on filedocumented in this encounter Care Teams Steel Unloader Relationship Specialty Start Date End Date Unknown, Provider, PCP - General 04/27/15 documented as of this encounter
--- OUTSIDE RECORDS SUMMARY | 2024-02-25 19:32 | XMS_ITS | Clinical Summary ---
Author Organization [facility] Address [address] [place] [address] Care Team Providers Care Parts Room Associate Name Role Phone Unknown, Provider Primary Care Provider Encounters Date Type Department Care Team Description 02/25/2024 Lab Requisition [facility] Pathology & Laboratory Medicine - [facility] [address] [place] [address] Outr Resulting Lab, Provider from Last 3 Months Social History Tobacco Use Types Packs/Day Years Used Date Smoking Tobacco: Never Assessed Interpersonal Safety Answer Date Record ed Physically Hurt Never 01/14/2020 Verbally Threaten Not on file 01/14/2020 Sex and Gender Information Value Date Recorded Sex Assigned at Not on file Gender Identity Not on file Sexual Orientation Not on file Plan of Treatment Health Maintenance Due Date Last Done Comments Hepatitis C Screen 1960 RSV Immunization ( o r 60+ Years) (1 - 1-dose 60+ series) 2018 COVID-19 Vaccine ( - 2022-24 season) 2023 Fall Risk Screening 11/21/2023 Care Teams Parts Room Associate Relationship Specialty Start Date End Date Unknown, Provider, PCP - General 04/27/15
--- OUTSIDE RECORDS SUMMARY | 2024-02-25 19:33 | XMS_ITS | Encounter Summary ---
Author Organization [facility] Address [address] [place] [address] Care Team Providers Care Dynamite Reclaimer Name Role Phone Unavailable Primary Care Provider Unavailabl e Encounter Details Date Type Department Care Team (Late st Contact Info) Description 08/10/2000 Results Only [facility] - Maple conversion [address] [place] [address] Meenu Albert MD [address] [address] Social History Tobacco Use Types Packs/Day Years Used Date Smoking Tobacco: Never Assessed Sex and Gender Information Value Date Recorded Sex Assigned at Not on file Gender Identity Not on file Sexual Orientation Not on file documented as of this encounter Plan of Treatment Not on file documented as of this encounter Procedures Procedure Name Priority Date/Time Associated Diagnosis Comments CYTOPATHOLOGY Routine 08/10/2000 0:00 EST documented in this encounter Results * CYTOPATHOLOGY (08/10/2000 0:00 EST) Pathology Report: CYTOPATHOLOGY REPORT Reports generated via electronic interface contain original data; however they are lacking the format of the original report. Caution should be taken when reading/interpreti ng unformatted reports. Name: ? DORI LOWE ? Accession #: ? [id number] : ? 1960 (Age: 39) ??F ?Collect Date: ? 08/10/2000 Location: ? [facility] ? Receive Date: ? 08/12/2000 Provider: ?MEENU ALBERT MD Copy to: ? Specimen/Source: ?ThinPrep Pap Test, Cervix/Endocervix Last Menstrual Period: ? 07/24/00 Previous Gynecologic Pathology: ? Yes ? SPECIMEN ADEQUACY ? Satisfactory for evaluation. GENERAL CATEGORIZATION ? Within Normal Limits ? Document reviewed and electronically signed by: ? Karly Hernandez, MILLIE(ASCP) ? Report Date: ??08/12/2000 11:34 End of Report LETICIA GARCIA 08/10/2000 08/12/2000 Meenu Albert MD PATHOLOGY ORDERABLES Performing Organization Address City/State/[facility] Co de Phone Number [facility] [address] [place] [address] documented in this encounter Visit Diagnoses Not on filedocumented in this encounter
--- OUTSIDE RECORDS SUMMARY | 2024-02-25 19:33 | XMS_ITS | Encounter Summary ---
Author Organization [facility] Address [address] [place] [address] Care Team Providers Care Sanitation Officer Name Role Phone Unknown, Provider Primary Care Provider Encounter Details Date Type Department Care Team ([facility] st Contact Info) Description 05/12/2018 Results Only [facility] [phone] Soraida Sims MD [address] [place] [phone] Social History Tobacco Use Types Packs/Day Years Used Date Smoking Tobacco: Never Assessed Sex and Gender Information Value Date Recorded Sex Assigned at Not on file Gender Identity Not on file Sexual Orientation Not on file documented as of this encounter Plan of Treatment Not on file documented as of this encounter Procedures Procedure Name Priority Date/Time Associated Diagnosis Comments PAP TEST- RESULT ONLY Routine 05/12/2018 0:00 EST documented in this encounter Results * PAP TEST- RESULT ONLY (05/12/2018 0:00 EST) Pathology Report: CYTOPATHOLOGY REPORT Reports generated via electronic interface contain original data; however they are lacking the format of the original report. Caution should be taken when reading/interpreti ng unformatted reports. Name: ? DORI LOWE ? Accession #: ? [id number] : ? 1960 (Age: 57) ??F ?Collect Date: ? 05/12/2018 Location: ? [facility] ? Receive Date: ? 05/17/2018 Provider: ?SORAIDA SIMS MD Copy to: ? Specimen/Source: ?Pap Test, Cervix/Endocervix, ThinPrep Imaging System with manual evaluation Last Menstrual Period: ? Infection History: ? Pos for HPV: 2014 Other: ? Additional clinical information: Z01.419 ? SPECIMEN ADEQUACY ? Satisfactory for Evaluation - transformation zone component present GENERAL CATEGORIZATION ? Negative for Intraepithelial Lesion or Malignancy ? Document reviewed and electronically signed by: ? JAY Hoyos(ASCP) ? Report Date: ??05/20/2018 13:27 End of Report [facility] 05/12/2018 05/17/2018 Soraida Sims MD PATHOLOGY ORDERABLES [facility] [address] [place] [address] documented in this encounter Visit Diagnoses Not on filedocumented in this encounter Care Teams Sanitation Officer Relationship Specialty Start Date End Date Unknown, Provider, PCP - General 04/27/15 documented as of this encounter
--- OUTSIDE RECORDS SUMMARY | 2024-02-25 19:33 | XMS_ITS | Encounter Summary ---
Author Organization [facility] Address [address] [place] [address] Care Team Providers Care Reclamation Furnace Operator Name Role Phone Unavailable Primary Care Provider Unavailabl e Encounter Details Date Type Department Care Team (Late st Contact Info) Description 01/26/2003 Results Only [facility] - Maple conversion [address] [place] [address] Zane Thomason, DENISE [address] [place] [address] Social History Tobacco Use Types Packs/Day Years Used Date Smoking Tobacco: Never Assessed Sex and Gender Information Value Date Recorded Sex Assigned at Not on file Gender Identity Not on file Sexual Orientation Not on file documented as of this encounter Plan of Treatment Not on file documented as of this encounter Procedures Procedure Name Priority Date/Time Associated Diagnosis Comments SURGICAL PATHOLOGY Routine 01/26/2003 0:00 EDT documented in this encounter Results * SURGICAL PATHOLOGY (01/26/2003 0:00 EDT) Pathology Report: SURGICAL PATHOLOGY REPORT Reports generated via electronic interface contain original data; however they are lacking the format of the original report. Caution should be taken when reading/interpreti ng unformatted reports. Name: ? DORI LOWE ? Accession #: ? [id number] ? : ? 1960 (Age: 42) ??F ? Collect Date: ? 01/26/2003 ? Location: ? [facility] ? Receive Date: ? 01/29/2003 ? Provider: ZANE THOMASON CARPENTER ASSISTANT Copy to: GAGE PEREZ MD ? Final Pathologic Diagnosis: ? Skin of axilla, left, shave biopsy: - ??Melanocytic nevus, intradermal type. Microscopic Description: ? Sections are of a papule with mild epidermal hyperplasia and hyperkeratosis. ??There is a proliferation of melanocytes within the dermis. ??The proliferation consists of nests, cords, and strands that diminish in size with descent into the dermis. ??The melanocytes are slightly enlarged but generally have round-oval nuclei and a moderate amount of cytoplasm. ??The melanocytes show hot stone setter maturation. ??(Dr. Anderson)/[facility] Document reviewed and electronically signed by: Brittany Anderson MD Report ??Date: 01/30/2003 14:56 By the signature above, the attending physician certifies that he/she has personally conducted a gross and/or microscopic examination of the described specimens and rendered or confirmed the above diagnosis. Specimen(s) Received: ? Skin tag with color change last 3 months ??L axilla Clinical History: ? Not listed Gross Description: ? Received in formalin labelled Mynor and skin tag L axilla is a 0.3 x 0.2 x 0.1 cm shave biopsy of skin with a pedroza-brown polypoid papule which measures 0.2 x 0.2 cm and has a height of 0.3 cm. ??Submitted intact in one cassette. ??(Main Vargas)/[facility] End of Report LETICIA GARCIA 01/26/2003 01/29/2003 15: 30 EDT Zane Thomason CARPENTER ASSISTANT PATHOLOGY ORDERABLES Performing Organization Address City/State/[facility] Co n[place] Phone Number [facility] [address] [place] [address] documented in this encounter Visit Diagnoses Not on filedocumented in this encounter
--- OUTSIDE RECORDS SUMMARY | 2024-02-25 19:33 | XMS_ITS | Encounter Summary ---
Author Organization [facility] Address [address] [place] [address] Care Team Providers Care Bottling Line Attendant Name Role Phone Unknown, Provider Primary Care Provider Encounter Details Date Type Department Care Team ([facility] st Contact Info) Description 08/06/2016 Results Only [facility] [phone] Soraida Sims MD [address] [place] [id number] Social History Tobacco Use Types Packs/Day Years Used Date Smoking Tobacco: Never Assessed Sex and Gender Information Value Date Recorded Sex Assigned at Not on file Gender Identity Not on file Sexual Orientation Not on file documented as of this encounter Plan of Treatment Not on file documented as of this encounter Procedures Procedure Name Priority Date/Time Associated Diagnosis Comments SURGICAL PATHOLOGY Routine 08/06/2016 6:21 EST documented in this encounter Results * SURGICAL PATHOLOGY (08/06/2016 6:21 EST) Pathology Report: SURGICAL PATHOLOGY REPORT Reports generated via electronic interface contain original data; however they are lacking the format of the original report. Caution should be taken when reading/interpreting unformatted reports. Name: ? DORI LOWE ? Accession #: ? [id number] ? : ? 1960 (Age: 55) ??F ? Collect Date: ? 08/06/2016 ? Location: ? [facility] ? Receive Date: ? 08/08/2016 ? Provider: SORAIDA SIMS MD Copy to: ? Final Pathologic Diagnosis: SKIN OF CHEEK, LEFT, PUNCH BIOPSY: - Actinic keratosis, hypertrophic type. ?? Microscopic Description: The stratum corneum is markedly thickened by orthohyperkeratosis and confluent parakeratosis. ??The epidermis is hyperplastic with expansion of the stratum spinosum by enlarged keratinocytes with abundant glassy eosinophilic cytoplasm. The basal keratinocytes show a variable degree of nuclear atypia including enlargement, dispolarity, and overlap. ??The dermis is marked by solar elastosis, vascular ectasia, and a lymphohistiocytic infiltrate. ??(Dr. Anderson)/ljn Document reviewed and electronically signed by: CELI ANDERSON MD Report ??Date: 08/11/2016 16:29 By the signature above, the attending physician certifies that he/she has personally conducted a gross and/or microscopic examination of the described specimens and rendered or confirmed the above diagnosis. Specimen(s) Received: 8.0 mm punch bx on left cheek Clinical History: Flat lesion that more recently has grown a central, pedunculated, warty component on L cheek, base of flat area approximately 1.0 cm, base of pedunculated area 4.0-5.0 mm Gross Description: ? Received in formalin labelled with proper patient identification (initials P, K) and lesion cheek is a 0.8 cm circular piece of skin, excised to a depth of 0.5 cm. The central skin surface shows a protruding firm whitman-pedroza lesion. The margin is inked. Trisected and entirely submitted in 1. FERMIN Thompson (ASCP) 08/10/2016 9:18 AM End of Report [facility] 08/06/2016 6:21 EST 08/08/2016 6:21 EST Soraida Sims MD PATHOLOGY ORDERABLES [facility] [address] [place] [address] documented in this encounter Visit Diagnoses Not on filedocumented in this encounter Care Teams Bottling Line Attendant Relationship Specialty Start Date End Date Unknown, Provider, PCP - General 04/27/15 documented as of this encounter
--- OUTSIDE RECORDS SUMMARY | 2024-02-25 19:33 | XMS_ITS | Encounter Summary ---
Author Organization [facility] Address [address] [place] [address] Care Team Providers Care Terminal Gauger Supervisor Name Role Phone Unknown, Provider Primary Care Provider Encounter Details Date Type Department Care Team (Latest Contact Info) Description 08/06/2016 14:23 EST - 08/06/2016 23:59 EST Hospital Encounter [address] [address] Unknown, Provider, Discharge Disposition: Home or Self Care Social History Tobacco Use Types Packs/Day Years Used Date Smoking Tobacco: Never Assessed Sex and Gender Information Value Date Recorded Sex Assigned at Not on file Gender Identity Not on file Sexual Orientation Not on file documented as of this encounter Discharge Disposition Disposition Code Departure Means Destination Home or Self Detention documented in this encounter Plan of Treatment Not on file documented as of this encounter Visit Diagnoses Not on filedocumented in this encounter Care Teams Terminal Gauger Supervisor Relationship Specialty Start Date End Date Unknown, Provider, PCP - General 04/27/15 documented as of this encounter
--- OUTSIDE RECORDS SUMMARY | 2024-02-25 19:33 | XMS_ITS | Encounter Summary ---
Author Organization [facility] Address [address] [place] [address] Care Team Providers Care Call Center Trainer Name Role Phone Unavailable Primary Care Provider Unavailabl e Encounter Details Date Type Department Care Team (Late st Contact Info) Description 01/08/2003 Results Only [facility] - [facility] [address] [place] [address] Zane Thomason, DENISE [address] [place] [address] Social History Tobacco Use Types [...] Priority Date/Time Associated Diagnosis Comments CYTOPATHOLOGY Routine 01/08/2003 0:00 EDT documented in this encounter Results * CYTOPATHOLOGY (01/08/2003 0:00 EDT) Pathology Report: CYTOPATHOLOGY REPORT Reports generated via electronic interface contain original data; however they are lacking the format of the original report. Caution should be taken when reading/interpreti ng unformatted reports. Name: ? DORI LOWE ? Accession #: ? [id number] : ? 1960 (Age: 42) ??F ?Collect Date: ? 01/08/2003 Location: ? [facility] ? Receive Date: ? 01/10/2003 Provider: ?ZANE THOMASON HVAC FIELD SERVICE TECHNICIAN Copy to: ? Specimen/Source: ?ThinPrep Pap Test, Cervix/Endocervix Last Menstrual Period: ? Treatment History: ? Miscellaneous treatment: Conization 1992 Other: ? Additional clinical information: normal pap 07/15 HPVA - HPV testing requested if ASC-US on the current ThinPrep Pap test. ? SPECIMEN ADEQUACY ? Satisfactory for Evaluation - transformation zone component present GENERAL CATEGORIZATION ? Negative for Intraepithelial Lesion or Malignancy ? Document reviewed and electronically signed by: ? Radha Pickens, SCT(ASCP) ? Report Date: ??01/15/2003 14:07 End of Report [facility] 01/08/2003 01/10/2003 Zane Thomason NP PATHOLOGY ORDERABLES [facility] [address] [place] [address] documented in this encounter Visit Diagnoses Not on filedocumented in this encounter
--- OUTSIDE RECORDS SUMMARY | 2024-02-25 19:33 | XMS_ITS | Encounter Summary ---
Author Organization [facility] Address [address] [place] [address] Care Team Providers Care Network Relations Consultant Name Role Phone Unavailable Primary Care Provider Unavailabl e Encounter Details Date Type Department Care Team (Late st Contact Info) Description 05/01/2014 Results Only [facility] - [facility] ([facility]) [address] [place], [place] [phone] Suzette Gregory MD [address] [place] [address] [place] [address] Social History Tobacco Use Types Packs/Day Years [...] Diagnosis Comments PAP TEST- RESULT ONLY Routine 05/01/2014 0:00 EST documented in this encounter Results * PAP TEST- RESULT ONLY (05/01/2014 0:00 EST) Pathology Report: CYTOPATHOLOGY REPORT Reports generated via electronic interface contain original data; however they are lacking the format of the original report. Caution should be taken when reading/interpreti ng unformatted reports. Name: ? DORI LOWE ? Accession #: ? [id number] ? : ? 1960 (Age: 53) ??F ?Collect Date: ? 05/01/2014 ? Location: ? [facility] ? Receive Date: ? 05/02/2014 ? Provider: SUZETTE GREGORY MD Copy to: ? Final Report SPECIMEN ADEQUACY ? Satisfactory for Evaluation - transformation zone component present GENERAL CATEGORIZATION ? Negative for Intraepithelial Lesion or Malignancy INTERPRETATION ? Reactive cellular changes associated with inflammation present (includes repair). Shift in girish present suggestive of bacterial vaginosis. Previous Gynecologic Pathology: AGATHA III: Old h/o Specimen/Source: ??Pap Test, Source Not Provided, [employer] Imaging System with manual evaluation Document reviewed and electronically signed by: ? YEMI SILVEIRA MD ? Report ??Date: 05/09/2014 13:16 HPV with Pap Test ? Date Ordered: ? 05/09/2014 ? Status: ?? Signed Out ?Date Complete: ? 05/14/2014 ? By: ??System Interface ? Date Reported: ? 05/14/2014 ? Interpretation RESULT: Positive for high or intermediate risk HPV. E6 OR E7 mRNA from one or more types of HPV types 16,18,31, 33,35,39,45,51,52, 56,58,59,66, and 68 is detected by reference services head mediated amplification. High and intermediate risk HPV types are associated with most squamous intraepithelial lesions and cervical cancers. Test not validated for this type of specimen or collection method. The sensitivity and specificity of the test in this situation are unknown. The results should be interpreted with caution. Comments Document reviewed and electronically signed by: ? System Interface ? Report date: 05/14/2014 By the signature above, the attending physician certifies that he/she has personally conducted a gross and/or microscopic examination of the described specimens and rendered or confirmed the above diagnosis. End of Report [facility] 05/01/2014 05/02/2014 Suzette Gregory MD PATHOLOGY ORDERABLES Performing Organization Address City/State/[facility] [[email or web address]] Co de Phone Number [facility] [address] [place] [address] documented in this encounter Visit Diagnoses Not on filedocumented in this encounter
--- OUTSIDE RECORDS SUMMARY | 2024-02-25 19:33 | XMS_ITS | Encounter Summary ---
Author Organization [facility] Address [address] [place] [address] Care Team Providers Care Manager Of Regulatory Affairs Name Role Phone Unknown, Provider Primary Care Provider [phone] Encounter Details Date Type Department Care Team ([facility] st Contact Info) Description 07/05/2018 Results Only [facility] [phone] Melinda Michael MD [address] [place] [phone] Social History Tobacco Use Types Packs/Day Years Used Date Smoking Tobacco: Never Assessed Sex and Gender Information Value Date Recorded Sex Assigned at Not on file Gender Identity Not on file Sexual Orientation Not on file documented as of this encounter Plan of Treatment Not on file documented as of this encounter Procedures Procedure Name Priority Date/Time Associated Diagnosis Comments SURGICAL PATHOLOGY Routine 07/05/2018 22 :50 EST documented in this encounter Results * SURGICAL PATHOLOGY (07/05/2018 22:50 EST) Pathology Report: SURGICAL PATHOLOGY REPORT Reports generated via electronic interface contain original data; however they are lacking the format of the original report. Caution should be taken when reading/interpret ing unformatted reports. Name: ? DORI LOWE ? Accession #: ? [id number] ? : ? 1960 (Age: 57) ??F ? Collect Date: ? 07/05/2018 ? Location: ? [facility] ? Receive Date: ? 07/05/2018 ? Provider: MELINDA MICHAEL MD Copy to: ? Final Pathologic Diagnosis: RECTUM, POLYP, BIOPSY: - Hyperplastic polyp. Document reviewed and electronically signed by: PEREZ FARIAS MD Report ??Date: 07/06/2018 17:44 By the signature above, the attending physician certifies that he/she has personally conducted a gross and/or microscopic examination of the described specimens and rendered or confirmed the above diagnosis. Specimen(s) Received: Rectal polyp Clinical History: Epigastric abdominal pain, bright red blood per rectum; clinical diagnosis code: R10.3, K62.5, Z12.11 Gross Description: ? Received in formalin labelled with proper patient identification (initials P, K) and rectal polyp is a pedroza-pink tissue (0.2 x 0.2 x 0.1 cm). Submitted in toto in 1. FERMIN Hollis (ASCP) 07/06/2018 8:08 AM End of Report [facility] 07/05/2018 22:5 0 EST 07/05/2018 22:50 EST Melinda Michael MD PATHOLOGY ORDERABL ES [facility] [address] [place] [address] documented in this encounter Visit Diagnoses Not on filedocumented in this encounter Care Teams Manager Of Regulatory Affairs Relationship Specialty Start Date End Date Unknown, Provider, PCP - General 04/27/15 documented as of this encounter
--- OUTSIDE RECORDS SUMMARY | 2024-02-25 19:33 | XMS_ITS | Encounter Summary ---
Author Organization [facility] Address [address] [place] [address] Care Team Providers Care Community Pharmacist Name Role Phone Unavailable Primary Care Provider Unavailabl e Encounter Details Date Type Department Care Team (Late st Contact Info) Description 03/24/[address] [facility] - Maple conversion [address] [place] [address] Radha Mo, DOUBLE BACK OPERATOR [address] [place] [address] Social History Tobacco Use Types Packs/Day Years Used Date Smoking Tobacco: Never Assessed Sex and Gender Information Value Date Recorded Sex Assigned at Not on file Gender Identity Not on file Sexual Orientation Not on file documented as of this encounter Plan of Treatment Not on file documented as of this encounter Procedures Procedure Name Priority Date/Time Associated Diagnosis Comments HPV DETECTION, HIGH RISK TYPES Routine 03/24/2005 9:03 EDT CYTOPATHOLOGY Routine 03/24/2005 0:00 EDT documented in this encounter Results * HUMAN PAPILLOMA VIRUS DNA TEST (03/24/2005 9:03 EDT) Specimen Description Cervix, ThinPrep vial [facility] Result Negative for HPV types 16, 18, 31, 33, 35, 39, 45, 51, 52, 56, 58, 59, and 68. [facility] Report Status Final [id number] [facility] 03/24/2005 9:03 EDT 04/02/2005 9:03 EDT Radha Mo NP MICROBIOLOGY - GENER AL ORDERABLES [facility] [address] [place] [address] * CYTOPATHOLOGY (03/24/2005 0:00 EDT) Pathology Report: CYTOPATHOLOGY REPORT Reports generated via electronic interface contain original data; however they are lacking the format of the original report. Caution should be taken when reading/interpreti ng unformatted reports. Name: ? MYNOR DORI M ? Accession #: ? [id number] : ? 1960 (Age: 44) ??F ?Collect Date: ? 03/24/2005 Location: ? [facility] ? Receive Date: ? 03/26/2005 Provider: ?RADHA MO NP Copy to: ? Specimen/Source: ?ThinPrep Pap Test, Cervix/Endocervix, processed on [email or web address] ThinPrep Imaging System, with manual evaluation Last Menstrual Period: ? 03/23/05 Other: ? HPVDX - HPV testing requested regardless of diagnosis on current ThinPrep Pap test. ? SPECIMEN ADEQUACY ? Satisfactory for Evaluation - transformation zone component present GENERAL CATEGORIZATION ? Negative for Intraepithelial Lesion or Malignancy INTERPRETATION ? Shift in girish present suggestive of bacterial vaginosis. ? Document reviewed and electronically signed by: ? Lynan Slim, CT(ASCP) ? Report Date: ??04/01/2005 16:21 End of Report [facility] 03/24/2005 03/26/2005 Radha Mo NP PATHOLOGY ORDERABLES Performing Organization Address City/State/[facility] Co de Phone Number [facility] [address] [place] [address] documented in this encounter Visit Diagnoses Not on filedocumented in this encounter
[2024-02-28 14:32] LABS: Albumin 57.4 % (55.8-66.1); Albumin g/dL 4.3 g/dL (3.6-5.2); Total Protein 7.5 g/dL (6.3-8.2)
== END 2024-02-25 19:29 | disposition home or self-care (01) ==
LOC: NCHCN 19:28
PROVIDERS: PCP Family Medicine; Visit Provider Family Medicine
DX: R73.03 Prediabetes (principal); Z00.00 Encounter for general adult medical examination without abnormal findings; G89.29 Other chronic pain
CPT/HCPCS: 85652; 82607; 83036; 84165; 84443; 86140

== ENCOUNTER 2024-03-28 01:41 | Outpatient (CLI) | payer MEDICARE, SELFPAY ==
--- NOTE | 2024-03-28 15:53 | DI.RAD_ITS ---
Exam(s) XR FOOT RT COMPLETE EXAM: XR FOOT RT COMPLETE CLINICAL HISTORY: EMMANUEL FOOT PAIN, M79.673. TECHNIQUE: 2D digital imaging was performed. COMPARISON: CR XR FOOT LT COMPLETE from 03/28/2024 FINDINGS: 3 views No evidence of fracture or diastasis of the Lisfranc joint. Bone density normal. No osseous lesions nor erosions. The great toe metatarsophalangeal joint appears unremarkable. There is no pes planus . However, are 2 adjacent thin radiopaque foreign bodies in the soft tissues of the 3rd toe immediately adjacent to the lateral cortex of the proximal diaphysis of the proximal phalanx. No evidence of os teomyelitis. No gas in the tissues at this level. IMPRESSION: Two thin radiopaque foreign bodies are noted in the soft tissues of the 3rd toe immediately adjacent to the lateral cortex of the proximal phalanx. No evidence of gas in the soft tissues nor osteomyeli tis. DATA REPOSITORY: RADIATION DOSE DELIVERED:
--- NOTE | 2024-03-28 15:53 | DI.RAD_ITS ---
Exam(s) XR FOOT LT COMPLETE EXAM: XR FOOT LT COMPLETE CLINICAL HISTORY: EMMANUEL FOOT PAIN, M79.673. TECHNIQUE: 2D digital imaging was performed. COMPARISON: CR XR FOOT RT COMPLETE from 03/28/2024 FINDINGS: 3 views No evidence of fracture or diastasis of the Lisfranc joint. Bone density normal. No osseous lesions nor erosions. Great toe metatarsophalangeal joint appears unremarkable. There is mild soft tissue swelling lateral to the head of the 5th metatarsal. No soft tissue calcifications nor foreign bodies at this level and no evidence of osteomyelitis. There is, however, an element of medial subluxation of the proximal phalanx of the 5th toe evident. Bone density normal. No osseous lesions. IMPRESSION: There is mild medial subluxation at the 5th metatarsophalangeal joint. Adjacent soft tissue swelling . No radiopaque foreign bodies. No bony erosions nor radiographic evidence of osteomyelitis seen. DATA REPOSITORY: RADIATION DOSE DELIVERED:
--- NOTE | 2024-03-28 15:53 | DI.RAD_ITS ---
Exam(s) XR HAND RT COMPLETE EXAM: XR HAND RT COMPLETE CLINICAL HISTORY: EMMANUEL HAND PAIN, M79.643. TECHNIQUE: 2D digital imaging was performed. COMPARISON: CR XR HAND LT COMPLETE from 03/28/2024 FINDINGS: 3 views No evidence of fracture or subluxations. No osseous lesions nor erosions. There is a small corticat ed soft tissue para-articular calcification adjacent to the medial aspect of the DIP joint of the 3rd -middle finger. No other soft tissue calcification seen. No osteophytes. Bone density is normal. First carpometacarpal joint appears unremarkable. IMPRESSION: Small 1-2 mm corticated soft tissue calcification off the medial aspect of the DIP joint of the 3rd-m iddle finger. No other significant osseous findings. Significantly less degenerative change in the 1st carpometacarpal joint when compared to the similar articulation of the opposite-left hand. DATA REPOSITORY: RADIATION DOSE DELIVERED:
--- NOTE | 2024-03-28 15:54 | DI.RAD_ITS ---
Exam(s) XR HAND LT COMPLETE EXAM: XR HAND LT COMPLETE CLINICAL HISTORY: EMMANUEL HAND PAIN, M79.643. TECHNIQUE: 2D digital imaging was performed. COMPARISON: No exams were available for comparison FINDINGS: 3 views No evidence of fracture nor subluxations. No osseous lesions nor erosions evident. No soft tissue p maura-articular calcifications evident. There are moderate degenerative changes at the 1st carpometaca rpal joint. No osseous lesions. IMPRESSION: Degenerative changes at the 1st carpometacarpal joint. No other significant focal findings. DATA REPOSITORY: RADIATION DOSE DELIVERED:
== END 2024-03-28 02:01 ==
LOC: DI 01:41
PROVIDERS: PCP Family Medicine; Visit Provider Family Medicine
DX: M79.671 Pain in right foot (principal); M79.672 Pain in left foot; M79.641 Pain in right hand; M79.642 Pain in left hand
CPT/HCPCS: 73130; 73630

== ENCOUNTER 2024-03-28 02:26 | Outpatient (CLI) | payer MEDICARE, SELFPAY ==
[2024-03-29 17:34] LABS: Rheumatoid Factor <8.6 IU/mL (<12.0)
[2024-03-30 16:02] LABS: ANA Interpretation Negative (Negative)
[2024-03-31 15:37] LABS: HLA-B27 Result Positive
== END 2024-03-28 02:27 | disposition home or self-care (01) ==
LOC: LBO 02:27
PROVIDERS: PCP Family Medicine; Visit Provider Family Medicine
DX: M25.50 Pain in unspecified joint (principal)
CPT/HCPCS: 36415; 86812; 86038; 86431

== ENCOUNTER → 2024-04-24 11:06 | Outpatient (BNVA) | payer MEDICARE, SELFPAY | PROVIDERS: PCP Family Medicine; Referring Provider Family Medicine; Visit Provider Surgery | DX: K43.2 Incisional hernia without obstruction or gangrene (principal); K46.9 Unspecified abdominal hernia without obstruction or gangrene; J44.9 Chronic obstructive pulmonary disease, unspecified; E78.00 Pure hypercholesterolemia, unspecified | CPT/HCPCS: 99214 ==

== ENCOUNTER 2024-05-08 01:23 | Outpatient (CLI) | payer MEDICARE, SELFPAY ==
[2024-05-08 13:25] LABS: Estimated GFR 62.52 (mL/min/1.73m2)
--- NOTE | 2024-05-08 14:50 | DI.CT_ITS ---
Exam(s) CT ABDOMEN PELVIS W EXAM: CT ABDOMEN PELVIS W CLINICAL HISTORY: hernia at stoma site,incisional hernia,k43.2. TECHNIQUE: Imaging Protocol: Axial computed tomography images with coronal and sagittal reformatted images were created and reviewed CONTRAST MATERIAL: Intravenous: Omnipaque-350 100cc Oral: Yes. Oral contrast was also administered for bowel opacification. COMPARISON: CT CT CHEST PE ABD PELVIS W from 09/17/2023 FINDINGS: VISUALIZED LUNG BASES: There is platelike atelectasis in both lung bases, more so than previous. ABDOMEN: There is no ascites. LIVER: Liver is hypodense implying steatosis. There are no ominous focal hepatic lesions evident. N o dilated intrahepatic ducts. GALLBLADDER/BILIARY: No obvious gallbladder pathology. CBD is not dilated. PANCREAS: No evidence of pancreatic mass nor dilatation of the pancreatic duct. There is a [address] parenchymal calcification in the pancreatic tail noted and another 2 mm calcification the pancrea tic head. No associated masses. SPLEEN: Spleen is not enlarged. No obvious intrasplenic lesions. Splenic and portal veins are paten t. ADRENALS: There are no significant adrenal masses. KIDNEYS:Small benign cyst in the left kidney measuring 8 mm. Does not require further imaging workup . No solid renal masses. No calculi nor hydronephrosis.. ABDOMINAL AORTA: Abdominal aorta is not enlarged. Iliac arteries not enlarged. LYMPH NODES:There is no retroperitoneal nor paraaortic adenopathy. ABDOMINAL WALL: There is a left-sided anterior abdominal wall hernia again noted at prior ostomy site . This is in the left rectus abdominus muscle. The neck of the hernia is 1.5 cm wide. This hernia sac does not contain bowel loops. GI: There is no evidence of bowel obstruction, free air, nor abscess. The administered oral contrast has reached the mid descending-left colon. No evidence of small bowel nor large bowel obstruction. PELVIS: GI: Appendix not seen and may be surgically absent.No evidence of sigmoid diverticulitis.No colitis p attern evident. Diameter of opacified small bowel loops is normal. LYMPH NODES: There is no intrapelvic nor inguinal adenopathy. REPRODUCTIVE: Uterus and adnexal regions appear unremarkable. URINARY BLADDER: No calculi nor obvious masses evident OSSEOUS: No fractures and no significant osseous lesions. Multilevel facet arthropathy in the lower lumbar spine noted. There is mild degenerative anterolisth esis of L4 upon L5 without disc space narrowing. IMPRESSION: 1. Anterior left abdominal wall fat only containing hernia at prior ostomy site in the left rectus ab dominus muscle again noted, exhibiting minimal if any significant change compared to the prior study and again not containing bowel loops. 2. No evidence of bowel obstruction, free air, nor abscess. 3. Hepatic steatosis. No significant focal hepatic lesions. RADIATION DOSE DELIVERED: 488.49mGy.cm Total DLP DATA REPOSITORY: All CT scans at this facility are submitted to the National Radiology Data Registry (NRDR) Dose Index Registry (DIR) with the [employer] (ACR). RADIATION OPTIMIZATION: All CT scans at this facility use at least one of these dose optimization te chniques: automated exposure control; mA and/or kV adjustment per patient size (includes targeted exa ms where dose is matched to clinical indication); or iterative reconstruction.
[2024-05-08] MEDS: Omnipaque 350 MG/ML 100 ML BTL 75 ML IJ (14:54)
[2024-05-08] MEDS: Omnipaque 350 MG/ML 50 ML BTL PO (14:58)
== END 2024-05-08 01:43 ==
LOC: DI 01:24
PROVIDERS: PCP Family Medicine; Visit Provider Surgery
DX: K43.2 Incisional hernia without obstruction or gangrene (principal)
CPT/HCPCS: 74177; 82565; J3490; Q9967

== ENCOUNTER 2024-05-23 12:17 | Outpatient (REF) | payer MEDICARE, SELFPAY ==
[2024-05-23 15:39] LABS: AST 18 U/L (15-37); Calculated LDL 152 mg/dL (<100); Cholesterol 235 mg/dL (<200); HDL Cholesterol 57 mg/dL (40-60); Triglyceride 132 mg/dL (<150)
== END 2024-05-23 12:18 | disposition home or self-care (01) ==
LOC: NCHCN 12:17
PROVIDERS: PCP Family Medicine; Visit Provider Family Medicine
DX: E78.5 Hyperlipidemia, unspecified (principal)
CPT/HCPCS: 80061; 83036; 84450

== ENCOUNTER 2024-05-26 00:41 | Outpatient (CLI) | payer MEDICARE, SELFPAY ==
--- OUTSIDE RECORDS SUMMARY | 2024-05-26 00:57 | XMS_ITS | Encounter Summary ---
Author Organization [facility] Address [facility] [address] Care Team Providers Care Director Of Dance Name Role Phone Soraida Sims MD Primary Care Provider [phone] Encounter Details Date Type Department Care Team (Late st Contact Info) Description 03/14/2008 Orders [place] [address] Tono Dozier MD [facility] [place] [address] Social History Tobacco Use Types Packs/Day Years [...] 9:56 AM EDT) Surgical Pathology Report [id number] ? Location: [facility] The signing pathologist has (i) examined the [...] in rendering the final pathologic diagnosis. [facility] 03/14/2008 9:56 AM EDT Tono Dozier MD PATHOLOGY/CYTOLOGY O RDERABLES [facility] documented in this encounter Visit Diagnoses Not on filedocumented in this encounter Care Teams Director Of Dance Relationship Specialty Start Date End Date Soraida Sims MD [address] [place] [address] PCP - General Family Medicine 07/30/20 documented as of this encounter
--- OUTSIDE RECORDS SUMMARY | 2024-05-26 00:57 | XMS_ITS | Encounter Summary ---
Author Organization [facility] Address [address] [place] [address] Care Team Providers Care Hospice Admitting Clerk Name Role Phone Unknown, Provider Primary Care Provider Unava ilable Encounter Details Date Type Department Care Team (Late st Contact Info) Description 09/03/2019 Lab Requisition [facility] Pathology & Laboratory Medicine - [facility] [address] [place] [address] Abhishek Campbell MD [address] [place] [phone] Encounter for other general examination Social History Tobacco Use Types Packs/Day Years Used Date Smoking Tobacco: Never Assessed Comments Unknown Sex and Gender Information Value Date Recorded Sex Assigned at Not on file Legal Sex Female 18:26 EST Gender Identity Not on file Sexual Orientation [...] Not Detected Not Detected 09/13/2019 9:30 EDT [facility] Comment:Testing performed at [facility], [place], [place] Swab ENTIRE NASOPHARYNX / Unknown 09/01/2019 14:15 EDT 09/03/2019 9:04 EDT us Abhishek Campbell MD MICROBIOLOGY - GENERAL MAGALYS YOUNGBLOOD Final Result [facility] [address] [place] [address] documented in this encounter Visit Diagnoses Diagnosis Encounter for other general examination documented in this encounter Care Teams Hospice Admitting Clerk Relationship Specialty Start Date End Date Unknown, Provider, PCP - General 04/27/15 documented as of this encounter
--- OUTSIDE RECORDS SUMMARY | 2024-05-26 00:57 | XMS_ITS | Encounter Summary ---
Author Organization [facility] Address [address] [place] [address] Care Team Providers Care Call Center Trainer Name Role Phone Unknown, Provider Primary Care Provider Unava ilable Encounter Details Date Type Department Care Team ([facility] st Contact Info) Description 08/06/2016 Results Only [facility] [phone] Soraida Sims MD [address] [place] [phone] Social History Tobacco Use Types Packs/Day Years [...] ? DORI LOWE ? Accession #: ? [id number] ? : ? 1960 (Age: 55) ??F [...] vascular ectasia, and a lymphohistiocytic infiltrate. ??(Dr. Anderson)/n Document reviewed and electronically signed by: CELI [...] (ASCP) 08/10/2016 9:18 AM End of Report [facility] 08/06/2016 6:21 EST 08/08/2016 6:21 EST us Soraida Sims MD PATHOLOGY ORDERABLES Final Resu lt Performing Organization Address City/State/[facility] Co de Phone Number [facility] [address] [place] [address] documented in this encounter Visit Diagnoses Not on filedocumented in this encounter Care Teams Call Center Trainer Relationship Specialty Start Date End Date Unknown, Provider, PCP - General 04/27/15 documented as of this encounter
--- OUTSIDE RECORDS SUMMARY | 2024-05-26 00:57 | XMS_ITS | Encounter Summary ---
Author Organization [facility] Address [address] [place] [address] Care Team Providers Care Cadd Operator Name Role Phone Unknown, Provider Primary Care Provider Unava ilable Encounter Details Date Type Department Care Team ([facility] st Contact Info) Description 05/12/2018 Results Only [facility] [phone] Soraida Smis MD [address] [place] [address] [phone] Social History Tobacco Use Types Packs/Day Years [...] ? DORI LOWE ? Accession #: ? [id number] : ? 1960 (Age: 57) ??F ?Collect [...] Report Date: ??05/20/2018 13:[address] [facility] 05/12/2018 05/17/2018 us Soraida Sims MD PATHOLOGY ORDERABLES Final Resu lt [facility] [address] [place] [address] documented in this encounter Visit Diagnoses Not on filedocumented in this encounter Care Teams Cadd Operator Relationship Specialty Start Date End Date Unknown, Provider, PCP - General 04/27/15 documented as of this encounter
--- OUTSIDE RECORDS SUMMARY | 2024-05-26 00:57 | XMS_ITS | Encounter Summary ---
Author Organization [facility] Address [address] [place] [address] Care Team Providers Care Manager Nursing Name Role Phone Unavailable Primary Care Provider Unavailabl e Encounter Details Date Type Department Care Team (Late st Contact Info) Description 05/01/2014 Results Only [facility] - [facility] ([facility] [address] [place] [address] Suzette Gregory MD [address] [place] [address] [place] [address] Social History Tobacco Use Types Packs/Day Years [...] ? DORI LOWE ? Accession #: ? [id number] ? : ? 1960 (Age: 53) ??F [...] h/o Specimen/Source: ??Pap Test, Source Not Provided, Taggable Imaging System with manual evaluation Document reviewed [...] 33,35,39,45,51,52, 56,58,59,66, and 68 is detected by delivery crew member mediated amplification. High and intermediate risk HPV [...] confirmed the above diagnosis. End of Report [facility] 05/01/2014 05/02/2014 us Suzette Gregory MD PATHOLOGY ORDERABLES Final Resu lt [facility] [address] [place] [address] documented in this encounter Visit Diagnoses Not on filedocumented in this encounter
--- OUTSIDE RECORDS SUMMARY | 2024-05-26 00:57 | XMS_ITS | Encounter Summary ---
Author Organization [facility] Address [address] [place] [address] Care Team Providers Care Chair Post Machine Operator Name Role Phone Unknown, Provider Primary Care Provider Yolanda naidu Encounter Details Date Type Department Care Team (Late st Contact Info) Description 07/21/2019 Lab Requisition [facility] Pathology & Laboratory Medicine - [address] [address] Unknown, Provider, Social History Tobacco Use Types [...] IGA 1.6 <4.0 U/mL 07/24/2019 15:31 EST [facility] Comment: A negative result may be due to IgA deficiency and does not rule out celiac disease. ? Negative: ??<4.0 U/mL ? Weak Positive: ??4.0 - 10.0 U/mL ? Positive: ??>10.0 U/mL Results were obtained with the INOVA QUANTA Lite R h-tTG IgA DIANA assay on the Qubrit DSX. IgA 198 85 - 499 mg/dL 07/24/2019 15:31 EST [facility] Celiac Disease Interpretation Negative Serology. Celiac disease unlikely. Approximately 10% of patients with celiac disease are seronegative. Patients who are already adhering to a gluten-free diet may also be seronegative. If celiac disease is highly clinically suspected, referral to gastroenterology for additional evaluation is recommended. 07/24/2019 15:31 EST [facility] Blood VENOUS BLOOD / Unknown 07/20/2019 15:10 EST 07/21/2019 21:23 EST us Provider Unknown IMMUNOLOGY AND SEROLOGY MAGALYS YOUNGBLOOD Final Result [facility] [address] [place] [address] documented in this encounter Visit Diagnoses Not on filedocumented in this encounter Care Teams Chair Post Machine Operator Relationship Specialty Start Date End Date Unknown, Provider, PCP - General 04/27/15 documented as of this encounter
--- OUTSIDE RECORDS SUMMARY | 2024-05-26 00:57 | XMS_ITS | Encounter Summary ---
Author Organization [facility] Address [facility] [place] [address] Care Team Providers Care Cable Testers Helper Name Role Phone Radha Mo DIRECTOR OF REHABILITATION AND WELLNESS Primary Care Provider + Encounter Details Date Type Department Care Team (Late st Contact Info) Description 07/22/2020 Ancillary Procedure Radiology [facility] at [facility] [place] [phone] Radha Mo APRN [address] [place] [address] Social History Tobacco Use Types Packs/Day Years [...] MR Shoulder (07/22/2020 12:00 AM EST) Narrative [facility] - 07/23/2020 7:54 PM EST This exam is auto-finalizing. It's purpose is for storage only. Radha Mo APRN IMG FILM LIBRARY ORDERABLES [place], [place] documented in this encounter Visit Diagnoses Not on filedocumented in this encounter Care Teams Cable Testers Helper Relationship Specialty Start Date End Date Radha Mo APRN PCP - General 05/06/10 07/29/20 documented as of this encounter
--- OUTSIDE RECORDS SUMMARY | 2024-05-26 00:57 | XMS_ITS | Encounter Summary ---
Author Organization [facility] Address [address] [place] [address] Care Team Providers Care Construction Coordinator Name Role Phone Unknown, Provider Primary Care Provider Unava ilable Encounter Details Date Type Department Care Team (Late st Contact Info) Description 07/05/2018 Results Only [facility] [phone] Melinda Michael MD [address] [place] [phone] Social History Tobacco Use Types Packs/Day [...] ? DORI LOWE ? Accession #: ? [id number] ? : ? 1960 (Age: 57) ??F [...] Submitted in toto in 1. FERMIN Hollis (ASC) 07/06/2018 8:08 AM End of Report [facility] 07/05/2018 22:5 0 EST 07/05/2018 22:50 EST us Melinda Michael MD PATHOLOGY ORDERABLES Final Result [facility] [address] [place] [address] documented in this encounter Visit Diagnoses Not on filedocumented in this encounter Care Teams Construction Coordinator Relationship Specialty Start Date End Date Unknown, Provider, PCP - General 04/27/15 documented as of this encounter
--- OUTSIDE RECORDS SUMMARY | 2024-05-26 00:57 | XMS_ITS | Clinical Summary ---
Author Organization [facility] Address [facility] [place] [address] Care Team Providers Care Line Rider Name Role Phone Soraida Sims MD Primary Care Provider [phone] Allergies Active Allergy Reactions Criticality Noted Date [...] 02/27/2021 Active fluticasone propionate (Flonase) 50 mcg/actuation [place], Suspension by Nasal route. 06/26/2020 Active gabapentin [...] Active Active Problems No known active problems Social History Tobacco Use Types Packs/Day Years [...] Hepatitis C Screening 1976 Lipid Screening 1976 Tetanus/Diphtheria/Pertussis Vaccines (1 - Tdap) 11/20 HPV test 1988 PAP Smear 1988 Breast Cancer Share Decision Needed 1998 Breast Cancer screening 1998 Diabetes Screening (HgbA1C or Glucose) 1998 Zoster vaccine (1 of 2) 2008 Advance Directive 2013 Bone Density Scan 11/21/2023 Pneumoccocal Vaccine: 65+ (1 of 1 - PCV) 11/21/2023 Covid-19 Vaccine (1 - 2023- season) 2024 Influenza (Flu) vaccine (1 o f 1 - Influenza standard series) 02/13/2024 Care Teams Line Rider Relationship Specialty Start Date End Date Soraida Sims MD [address] [place] [id number] PCP - General Family Medicine 07/30/20
--- OUTSIDE RECORDS SUMMARY | 2024-05-26 00:57 | XMS_ITS | Encounter Summary ---
Author Organization [facility] Address [facility] [place] [address] Care Team Providers Care Voting Machine Repairer Name Role Phone Soraida Sims MD Primary Care Provider [phone] Encounter Details Date Type Department Care Team (Late st Contact Info) Description 04/10/2021 Orders Only Radiology at [facility] [place] [address] Olman Gonzalez MD [facility] [place] [address] Social History Tobacco Use Types Packs/Day Years [...] on filedocumented in this encounter Care Teams Voting Machine Repairer Relationship Specialty Start Date End Date Soraida Sims MD [address] [place] [address] PCP - General Family Medicine 07/30/20 documented as of this encounter
--- OUTSIDE RECORDS SUMMARY | 2024-05-26 00:57 | XMS_ITS | Encounter Summary ---
Author Organization [facility] Address [address] [place] [address] Care Team Providers Care Is Analyst Name Role Phone Unknown, Provider Primary Care Provider Unava ilable Encounter Details Date Type Department Care Team (Late st Contact Info) Description 09/14/2022 Lab Requisition [facility] Pathology & Laboratory Medicine - [facility] [address] [place] [address] Tana Santoro MD [address] [place] [address] [place] [id number] Diverticulitis of intestine, part unspecified, with perforation and abscess without bleeding Social History Tobacco Use Types Packs/Day Years Used Date Smoking Tobacco: Never Assessed Interpersonal Safety Answer Date Record ed Physically Hurt Never 01/14/2020 Verbally Threaten Not on file 01/14/2020 Comments Unknown Sex and Gender Information Value [...] explore management options, if applicable. 09/16/2022 15:27 [facility] Final Diagnosis A. COLON, SIGMOID, RESECTION: - Diverticular disease and acute diverticulitis, with associated fibrosis of pericolonic soft tissue and acute serositis. 09/16/2022 15:27 [facility] Attestation By the signature below, the attending physician certifies that they have 1) personally conducted a gross and/or microscopic examination of the described specimen(s), and/or personally interpreted the results of laboratory testing of the described specimen(s), and 2) personally rendered or confirmed the above diagnosis. 09/16/2022 15:27 [facility] at 1527 Clinical History Intra-abdominal abscess +free air in abdomen 09/16/2022 15:27 [facility] Gross Description A. [...] not extend to the defect previously identified. Automotive Center Manager sections are submitted as follows: BLOCK GROVER A1-A4- stapled margins from shorter bowel segment, en face (A1-A2 is 1 bisected section, A3-A4 is 1 bisected section) A5-A6- proximal margin, bisected and submitted en face A7-A8- distal margin, bisected and submitted en face A9-A11- sections of diverticula FERMIN AKERS(ASCP) 09/15/2022 8:19 09/16/2022 15:27 EDT [facility] Performing Lab [facility] 09/16/2022 15:27 EDT [facility] Scanned Images 09/16/2022 15:27 EDT [facility] Tissue ENTIRE SIGMOID COLON / Unknown 09/12/2022 18:31 EDT 09/14/2022 23:39 EDT us Tana Santoro MD PATHOLOGY ORDERABLES Fin al Result [facility] [address] [place] [address] documented in this encounter Visit Diagnoses Diagnosis Diverticulitis of intestine, part unspecified, with perforation and abscess without bleeding documented in this encounter Care Teams Is Analyst Relationship Specialty Start Date End Date Unknown, Provider, PCP - General 04/27/15 documented as of this encounter
--- OUTSIDE RECORDS SUMMARY | 2024-05-26 00:57 | XMS_ITS | Encounter Summary ---
Author Organization [facility] Address [address] [place] [address] Care Team Providers Care Operator Supply Name Role Phone Unknown, Provider Primary Care Provider Unava ilable Encounter Details Date Type Department Care Team (Late st Contact Info) Description 01/05/2023 Lab Requisition [facility] Pathology & Laboratory Medicine - [address] [address] Sheryl Tanner, DO [address] [address] [place] [address] Encounter for other general examination Social History [...] explore management options, if applicable. 01/11/2023 14:28 [facility] Final Diagnosis A. APPENDIX, APPENDECTOMY: - Entirely submitted appendix with no specific diagnostic abnormalities. 01/11/2023 14:28 [facility] Attestation There was significant resident/fellow involvement in the diagnostic evaluation of this case. By the signature below, the attending physician certifies that they have personally conducted a gross and/or microscopic examination of the described specimens and rendered or confirmed the above diagnosis. 01/11/2023 14:28 [facility] at 1428 Clinical History Perforated diverticulitis 01/11/2023 14:28 [facility] Gross Description A. Received in [...] adjacent to the stapled proximal margin, 2 outbound telemarketing representative cross section and one half of the longitudinally bisected distal tip are submitted in A1. The remainder of the appendix is submitted in A2-A5 SONY BARNES MD 01/06/2023 14:34 01/11/2023 14:28 [facility] Resident/Matt w: Sony Barnes MD 01/11/2023 14:28 [facility] Performing Lab [facility] 01/11/2023 14:28 [facility] Scanned Images 01/11/2023 14:28 [facility] Tissue ENTIRE APPENDIX / Unknown 01/05/2023 10:17 EDT 01/05/2023 18:08 EDT us Sheryl Tanner DO PATHOLOGY ORDERABLES Final Re sult [facility] [address] [place] [address] documented in this encounter Visit Diagnoses Diagnosis Encounter for other general examination documented in this encounter Care Teams Operator Supply Relationship Specialty Start Date End Date Unknown, Provider, PCP - General 04/27/15 documented as of this encounter
--- OUTSIDE RECORDS SUMMARY | 2024-05-26 00:57 | XMS_ITS | Encounter Summary ---
Author Organization [facility] Address [address] [place] [address] Care Team Providers Care Junk Removal Specialist Name Role Phone Unknown, Provider Primary Care Provider Unava ilable Encounter Details Date Type Department Care Team (Late st Contact Info) Description 09/27/2020 Lab Requisition [facility] Pathology & Laboratory Medicine - [address] [address] Sheryl Tanner, DO [address] [facility] [address] [address] [place] [address] Encounter for other general examination Social History [...] mucosa with mild reactive changes. 10/01/2020 12:12 [facility] Attestation By the signature below, the attending physician certifies that they have 1) personally conducted a gross and/or microscopic examination of the described specimen(s), and/or personally interpreted the results of laboratory testing of the described specimen(s), and 2) personally rendered or confirmed the above diagnosis. 10/01/2020 12:12 [facility] at 1212 Clinical History Epigastric pain 10/01/2020 12:12 [facility] Gross Description A. Received [...] E1. Jeff Malone 09/28/2020 10:39 10/01/2020 12:12 [facility] Performing Lab [facility] 12:[address] [facility] Scanned Images 10/01/2020 12:[address] [facility] Tissue ENTIRE ESOPHAGUS / [...] Unknown 09/27/2020 9:07 EDT 09/27/2020 16:26 EDT us Sheryl Tanner DO PATHOLOGY ORDERABLES Final Re sult [facility] [address] [place] [address] documented in this encounter Visit Diagnoses Diagnosis Encounter for other general examination documented in this encounter Care Teams Junk Removal Specialist Relationship Specialty Start Date End Date Unknown, Provider, PCP - General 04/27/15 documented as of this encounter
--- OUTSIDE RECORDS SUMMARY | 2024-05-26 00:57 | XMS_ITS | Encounter Summary ---
Author Organization [facility] Address [address] [place] [address] Care Team Providers Care Yeast Stacker Name Role Phone Unknown, Provider Primary Care Provider Unava ilable Encounter Details Date Type Department Care Team (Late st Contact Info) Description 05/16/2022 Lab Requisition [facility] Pathology & Laboratory Medicine - [facility] [address] [place] [address] Outr Resulting Lab, Provider Social History Tobacco [...] Lyme Ab Negative Negative 05/18/2022 10:04 EST [facility] Blood VENOUS BLOOD / Unknown 05/15/2022 18:40 EST 05/17/2022 17:01 EST us Provider Outr Resulting Lab IMMUNOLOGY AND SEROL OGY ORDERABLES Final Result [facility] [address] [place] [address] documented in this encounter Visit Diagnoses Not on filedocumented in this encounter Care Teams Yeast Stacker Relationship Specialty Start Date End Date Unknown, Provider, PCP - General 04/27/15 documented as of this encounter
--- OUTSIDE RECORDS SUMMARY | 2024-05-26 00:57 | XMS_ITS | Encounter Summary ---
Author Organization [facility] Address [facility] [place] [address] Care Team Providers Care Back Sizer Name Role Phone Soraida Sims MD Primary Care Provider [phone] Encounter Details Date Type Department Care Team (Late st Contact Info) Description 02/07/2024 Orders [place] [address] Richy Paige MD [facility] [place] [address] Bilateral shoulder pain, unspecified chronicity Social History [...] Shoulder Bilat (Generic) (02/08/2024 11:21 AM EDT) [facility] WORKSTATION ID [id number] RAD Anatomical Region Laterality Modality Shoulder Bilateral [...] who have questions please contact the health respiratory care practitioner that requested your imaging first. ? Electronically signed by: Kaitlin Ellis MD, [facility] ([phone]), at 02/08/2024 2:49 PM Narrative 02/08/2024 2:49 [...] patients who have questions please contactthe health respiratory care practitioner that requested your imaging first. Electronically signed by: Kaitlin Ellis MD, [facility]([phone]), at 02/08/2024 2:49 PM Richy Paige MD IMG DX ORDERABLES documented in this encounter Visit Diagnoses Diagnosis Bilateral shoulder pain, unspecified chronicity Bilateral shoulder pain, unspecified chronicity documented in this encounter Care Teams Back Sizer Relationship Specialty Start Date End Date Soraida Sims MD [address] [place] [address] PCP - General Family Medicine 07/30/20 documented as of this encounter
--- OUTSIDE RECORDS SUMMARY | 2024-05-26 00:57 | XMS_ITS | Encounter Summary ---
Author Organization [facility] Address [facility] [place] [address] Care Team Providers Care Mica Machine Operator Name Role Phone Soraida Sims MD Primary Care Provider [phone] Reason for Referral * Diagnostic Test (Routine) - Closed Specialty Diagnoses / Procedures Referred By Contac t Referred To Contact Radiology Diagnoses Primary osteoarthritis of right shoulder Procedures XR Fluoro Guided Joint Injection Large Right Richy Paige MD [facility] [place] [address] [facility] [address] [place] [address] [place] [address] Referral ID Status Reason Start Date Expiration Date V isits Requested Visits Authorized [id number] Closed Specialty Service Requested 04/10/2021 10/09/2022 1 1 * Diagnostic Test (Routine) - Closed Specialty Diagnoses / Procedures Referred By Contac t Referred To Contact Radiology Diagnoses Primary osteoarthritis of left shoulder Procedures XR Fluoro Guided Joint Injection Large Left Richy Paige MD [facility] [place] [address] [facility] [address] [place] [address] [place] [address] Referral ID Status Reason Start Date Expiration Date V isits Requested Visits Authorized [id number] Closed Specialty Service Requested 04/10/2021 10/09/2022 1 1 Reason for Visit * Diagnostic Test (Routine) - Closed Specialty Diagnoses / Procedures Referred By Contac t Referred To Contact Radiology Diagnoses Primary osteoarthritis of left shoulder Procedures XR Fluoro Guided Joint Injection Large Left Richy Paige MD [facility] [place] [address] [facility] [address] [place] [address] Dr [place] PETRA [id number] Referral ID Status Reason Start Date Expiration Date V isits Requested Visits Authorized [id number] Closed Specialty Service Requested 04/10/2021 10/09/2022 1 1 Encounter Details Date Type Department Care Team (Latest Contact Info) Description 05/13/2021 10:45 AM EST - 05/13/2021 11:59 PM EST Hospital Encounter XRay at [address] [place] [address] Richy Paige MD [facility] [place] [address] Primary osteoarthritis of left shoulder; [...] telephone the diagnostic section of radiology at [phone]. documented in this encounter Medications at Time [...] NEEDED 02/27/2021 fluticasone propionate (Flonase) 50 mcg/actuation [place], Suspension by Nasal route. 06/26/2020 gabapentin (Neurontin) [...] who have questions please contact the health overnight caregiver that requested your imaging first. ? Narrative 05/13/2021 1:36 PM EST HISTORY: Right shoulder arthritis RIGHT SHOULDER GH JOINT INJECTION UNDER FLUOROSCOPY TECHNIQUE: After an extensive conversation with the patient regarding risks and benefits, oral and written consent were obtained.?A pre- procedural time-out was performed, including review of the patient's relevant electronic medical record and allergies, as per [facility] protocol. The patient was placed supine on [...] relevant electronic medicalrecord and allergies, as per [facility] protocol. The patient was placed supine on [...] patients who have questions please contactthe health overnight caregiver that requested your imaging first. Richy Paige [...] who have questions please contact the health overnight caregiver that requested your imaging first. ? Narrative 05/13/2021 1:32 PM EST HISTORY: Left shoulder arthritis. LEFT SHOULDER GH JOINT INJECTION UNDER FLUOROSCOPY TECHNIQUE: After an extensive conversation with the patient regarding risks and benefits, oral and written consent were obtained.?A pre- procedural time-out was performed, including review of the patient's relevant electronic medical record and allergies, as per [facility] protocol. The patient was placed supine on [...] relevant electronic medicalrecord and allergies, as per [facility] protocol. The patient was placed supine on [...] patients who have questions please contactthe health overnight caregiver that requested your imaging first. Richy Paige [...] mg documented in this encounter Care Teams Mica Machine Operator Relationship Specialty Start Date End Date Soraida Sims MD [address] [place] [address] PCP - General Family Medicine 07/30/20 documented as of this encounter
--- OUTSIDE RECORDS SUMMARY | 2024-05-26 00:57 | XMS_ITS | Encounter Summary ---
Author Organization [facility] Address [address] [place] [address] Care Team Providers Care Dietetics Professor Name Role Phone Unknown, Provider Primary Care Provider Unava ilable Encounter Details Date Type Department Care Team (Late st Contact Info) Description 03/29/2024 Lab Requisition [facility] Pathology & Laboratory Medicine - [facility] [address] [place] [address] Outr Resulting Lab, Provider Social History Tobacco [...] Procedure Name Priority Date/Time Associated Diagnosis Comments RHEUMATOID FACTOR Routine 03/28/2024 15: 53 EDT ANTI NUCLEAR AB (ALEJANDRA), IFA Routine 03/28/2024 15:53 EDT documented in this encounter Results * RHEUMATOID FACTOR (03/28/2024 15:53 EDT) Rheumatoid Factor <8.6 <12.0 IU/mL 03/29/2024 17:30 EDT [facility] Blood VENOUS BLOOD / Unknown 03/28/2024 15:53 EDT 03/29/2024 17:12 EDT us Provider Outr Resulting Lab CHEMISTRY & BLOOD GA S ORDERABLES Final Result Performing Organization Address [facility] Co de Phone Number [facility] [address] [place] [address] * ANTI NUCLEAR AB (ALEJANDRA), IFA (03/28/2024 15:53 EDT) ALEJANDRA Interpretation Negative Negative 2023 15:57 EDT [facility] Comment:No titer performed, ALEJANDRA Screen is negative. Blood VENOUS BLOOD / Unknown 03/28/2024 15:53 EDT 03/29/2024 17:12 EDT Narrative [facility] - 03/30/2024 15:57 EDT Results were obtained with the Pradama NOVA Lite HEp-2 ALEJANDRA Kit by indirect immunofluorescence. us Provider Outr Resulting Lab IMMUNOLOGY AND SEROL OGY ORDERABLES Final Result Performing Organization Address [facility] Co de Phone Number [facility] [address] [place] [address] documented in this encounter Visit Diagnoses Not on filedocumented in this encounter Care Teams Dietetics Professor Relationship Specialty Start Date End Date Unknown, Provider, PCP - General 04/27/15 documented as of this encounter
--- OUTSIDE RECORDS SUMMARY | 2024-05-26 00:57 | XMS_ITS | Encounter Summary ---
Author Organization [facility] Address [address] [place] [address] Care Team Providers Care Education Teacher Name Role Phone Unavailable Primary Care Provider Unavailabl e Encounter Details Date Type Department Care Team (Late st Contact Info) Description 01/26/2003 Results Only [facility] - [facility] [address] [place] [address] Zane Thomason, BINDING MACHINE OPERATOR [address] [place] [address] Social History Tobacco Use Types [...] ? DORI LOWE ? Accession #: ? [id number] ? : ? 1960 (Age: 42) ??F ? Collect Date: ? 01/26/2003 ? Location: ? [facility] ? Receive Date: ? 01/29/2003 ? Provider: ZANE THOMASON NP Copy to: GAGE PEREZ MD ? Final [...] moderate amount of cytoplasm. ??The melanocytes show car clerk pullman maturation. ??(Dr. Anderson)/[facility] Document reviewed and electronically signed [...] cm. ??Submitted intact in one cassette. ??(Main Vargas)/[facility] End of Report [facility] 01/26/2003 01/29/2003 15: 30 EDT us Zane Thomason NP PATHOLOGY ORDERABLES Final R esult Performing Organization Address City/State/[place] Co de Phone Number [facility] [address] [place] [address] documented in this encounter Visit Diagnoses Not on filedocumented in this encounter
--- OUTSIDE RECORDS SUMMARY | 2024-05-26 00:57 | XMS_ITS | Referral Summary ---
Author Organization [facility] Address [address] [place] [address] Care Team Providers Care Transit Police Officer Name Role Phone Unknown, Provider Primary Care Provider Unava ilable Encounters Date Type Department Care Team Description 03/29/[address] [facility] Pathology & Laboratory [facility] [address] [place] [address] Outr Resulting Lab, Provider 02/25/[address] [facility] Pathology & Laboratory [facility] [address] [place] [address] Outr Resulting Lab, Provider from Last 3 [...] file Plan of Treatment Not on file Procedures Procedure Name Priority Date/Time Associated Diagnosis Comments RHEUMATOID FACTOR Routine 03/28/2024 15: 53 EDT ANTI NUCLEAR AB (ALEJANDRA), IFA Routine 03/28/2024 15:53 EDT SPEP, INCLUDES QUANTITATION OF MONOCLONAL SPIKE PERFORMABLE Today 02/25/2024 12:50 EDT PROTEIN, TOTAL Today 02/25/2024 12:50 EDT SPEP, INCLUDES QUANTITATION OF MONOCLONAL SPIKE Routine 02/25/2024 12:50 EDT from Last 3 Months Results * RHEUMATOID FACTOR (03/28/2024 15:53 EDT) [facility] Rheumatoid Factor <8.6 <12.0 IU/mL 03/29/2024 17:30 EDT [facility] Blood VENOUS BLOOD / Unknown 03/28/2024 15:53 EDT 03/29/2024 17:12 EDT us Provider Outr Resulting Lab CHEMISTRY & BLOOD GA S ORDERABLES Final Result Performing Organization Address [facility] Co de Phone Number [facility] [address] [place] [address] * ANTI NUCLEAR AB (ALEJANDRA), IFA (03/28/2024 15:53 EDT) [facility] ALEJANDRA Interpretation Negative Negative 2023 15:57 EDT [facility] Comment:No titer performed, ALEJANDRA Screen is negative. Blood VENOUS BLOOD / Unknown 03/28/2024 15:53 EDT 03/29/2024 17:12 EDT Narrative [facility] - 03/30/2024 15:57 EDT Results were obtained with the Aveillantfen NOVA Lite HEp-2 ALEJANDRA Kit by indirect immunofluorescence. us Provider Outr Resulting Lab IMMUNOLOGY AND SEROL OGY ORDERABLES Final Result Performing Organization Address City/[facility]/ZIP Co de Phone Number [facility] [address] [place] [address] * (ABNORMAL) SPEP, INCLUDES QUANTITATION OF MONOCLONAL SPIKE PERFORMABLE (02/25/2024 12:50 EDT) [facility] Albumin % 57.4 55.8 - 66.1 % 02/28/2024 14:27 EDT [facility] Albumin g/dL 4.3 3.6 - 5.2 g/dL 02/28/2024 14:27 EDT [facility] Alpha-1 % 4.4 2.9 - 4.9 % 02/28/2024 14:27 [facility] Alpha-1 g/dL 0.30 0.15 - 0.40 g/dL 02/28/2024 14:27 [facility] Alpha-2 % 9.9 7.1 - 11.8 % 02/28/2024 14:27 [facility] Alpha-2 g/dL 0.70 0.50 - 1.00 g/dL 02/28/2024 14:27 [facility] Beta % 14.0(H) 8.4 - 13.1 % 02/28/2024 14:27 [facility] Beta g/dL 1.10 0.60 - 1.20 g/dL 02/28/2024 14:27 [facility] Gamma % 14.3 11.1 - 18.8 % 02/28/2024 14:27 [facility] Gamma g/dL 1.10 0.60 - 1.60 g/dL 02/28/2024 14:27 [facility] SPEP Comment No apparent monoclonal protein seen on serum electrophoresis 02/28/2024 14:27 [facility] Comment:See scanned/suppleme ntary report. Total Protein 7.5 6.3 - 8.2 g/dL 02/28/2024 14:27 [facility] Blood VENOUS BLOOD / Unknown 02/25/2024 12:50 EDT 02/25/2024 21:57 EDT us Provider Outr Resulting Lab CHEMISTRY & BLOOD GA S ORDERABLES Final Result [facility] [address] [place], [place] [id number] * PROTEIN, TOTAL (02/25/2024 12:50 EDT) Blood VENOUS BLOOD / Unknown 02/25/2024 12:50 EDT 02/25/2024 21:57 EDT us Provider Outr Resulting Lab CHEMISTRY & BLOOD GA S ORDERABLES Final Result [facility] [address] [place] [address] from Last 3 Months Insurance MEDICAID [place] Care Teams Transit Police Officer Relationship Specialty Start Date End Date Unknown, Provider, PCP - General 04/27/15
--- OUTSIDE RECORDS SUMMARY | 2024-05-26 00:57 | XMS_ITS | Encounter Summary ---
Author Organization [facility] Address [facility] [place] [address] Care Team Providers Care Tag Writer Name Role Phone Soraida Sims MD Primary Care Provider Encounter Details Date Type Department Care Team (Latest Contact Info) Description 02/08/2024 10:45 AM EDT - 02/08/2024 11:59 PM EDT Hospital Encounter [place]Ray at [facility] [place] [address] Bilateral shoulder pain, unspecified chronicity Discharge Disposition: [...] NEEDED 02/27/2021 fluticasone propionate (Flonase) 50 mcg/actuation [place], Suspension by Nasal route. 06/26/2020 gabapentin (Neurontin) [...] (Generic) (02/08/2024 11:21 AM EDT) WORKSTATION ID [id number] RAD Anatomical Region Laterality Modality Shoulder Bilateral [...] questions please contact the health lawn care worker that requested your imaging first. ? Narrative 02/08/2024 2:49 PM EDT EXAMINATION: XR [...] have questions please contactthe health lawn care worker that requested your imaging first. Richy Paige MD IMG DX ORDERABLES documented in this encounter Visit Diagnoses Diagnosis Bilateral shoulder pain, unspecified chronicity documented in this encounter Care Teams Tag Writer Relationship Specialty Start Date End Date Soraida Sims MD [address] [place] [address] PCP - General Family Medicine 07/30/20 documented as of this encounter
--- OUTSIDE RECORDS SUMMARY | 2024-05-26 00:57 | XMS_ITS | Encounter Summary ---
Author Organization [facility] [place] [address] Care Team Providers Care Printing Grey Cloth Tender Name Role Phone Soraida Sims MD Primary Care Provider [phone] Encounter Details Date Type Department Care Team [...] on filedocumented in this encounter Care Teams Printing Grey Cloth Tender Relationship Specialty Start Date End Date Soraida Sims MD [address] [place] [address] PCP - General Family Medicine 07/30/20 documented as of this encounter
--- OUTSIDE RECORDS SUMMARY | 2024-05-26 00:57 | XMS_ITS | Encounter Summary ---
Author Organization [facility] Address [address] [place] [address] Care Team Providers Care Health Club Manager Name Role Phone Unknown, Provider Primary Care Provider Unava ilable Encounter Details Date Type Department Care Team (Latest Contact Info) Description 08/06/2016 14:23 EST - 08/06/2016 23:59 EST Hospital Encounter [address] [address] Unknown, ProviderMD Discharge Disposition: Home or Self Care Social [...] Code Departure Means Destination Home or Self [facility] documented in this encounter Plan of Treatment Not on file documented as of this encounter Visit Diagnoses Not on filedocumented in this encounter Care Teams Health Club Manager Relationship Specialty Start Date End Date Unknown, ProviderMD PCP - General 04/27/15 documented as of this encounter
--- OUTSIDE RECORDS SUMMARY | 2024-05-26 00:57 | XMS_ITS | Encounter Summary ---
[place] [address] Care Team Providers Care Gravel Inspector Name Role Phone Soraida Sims MD Primary Care Provider [phone] Reason for Referral * Consultation (Routine) - Authorized Specialty Diagnoses / Procedures Referred By Luís fairbanks Referred To Contact Orthopaedics Diagnoses Shoulder pain, unspecified chronicity, unspecified laterality READY FOR EMMANUEL TOTAL SHOULDER REPLACEMENTS Soraida Sims MD [address] [place] [address] [facility] [address] [place] [phone] Referral ID Status Reason Start Date Expiration Date Visits Requested Visits Authorized [id number] Authorized Consult, Test & Treat PCP Updated and/or Approved 01/17/2024 01/16/2025 6 6 Encounter Details Date Type Department Care Team (Latest Contact Info) Description 01/17/2024 Transcribe Orders eDH Incoming Referrals [phone] Soraida Sims MD [address] [place], [place] [address] Shoulder pain, unspecified chronicity, unspecified laterality Social [...] laterality documented in this encounter Care Teams Gravel Inspector Relationship Specialty Start Date End Date Soraida Sims MD [address] [place] [address] PCP - General Family Medicine 07/30/20 documented as of this encounter
--- OUTSIDE RECORDS SUMMARY | 2024-05-26 00:57 | XMS_ITS | Encounter Summary ---
Author Organization [facility] Address [address] [place] [address] Care Team Providers Care Type Photography Supervisor Name Role Phone Unknown, Provider Primary Care Provider Unava ilable Encounter Details Date Type Department Care Team (Late st Contact Info) Description 01/02/2021 Lab Requisition [facility] Pathology & Laboratory Medicine - [facility] [address] [place] [address] Outr Resulting Lab, Provider Social History Tobacco [...] Unknown 01/02/2021 14:00 EDT 01/03/2021 16:04 EDT us Provider Outr Resulting Lab MICROBIOLOGY - GENER AL ORDERABLES Final Result Performing Organization Address City/[facility]/ZIP Co de Phone Number [facility] [address] [place] [address] * COVID-19 TESTING (01/02/2021 14:00 EDT) COVID-19 rt-PCR Result Negative Negative 01/04/2021 12:56 EDT [facility] Comment: This test has [...] performed using the shabbir SARS-CoV-2 assay ([employer] on the Shabbir 6800 System Performing Lab Shabbir [address] [facility] Lab 01/04/2021 12:56 EDT [facility] Swab 01/02/2021 14:0 0 EDT 01/03/2021 16:04 EDT us Provider Outr Resulting Lab MICROBIOLOGY - GENER AL ORDERABLES Final Result Performing Organization Address City/[facility]/ZIP Co de Phone Number [facility] [address] [place] [address] documented in this encounter Visit Diagnoses Not on filedocumented in this encounter Care Teams Type Photography Supervisor Relationship Specialty Start Date End Date Unknown, Provider, PCP - General 04/27/15 documented as of this encounter
--- OUTSIDE RECORDS SUMMARY | 2024-05-26 00:57 | XMS_ITS | Clinical Summary ---
Author Organization [facility] Address [address] [place] [address] Care Team Providers Care Burn Nurse Name Role Phone Unknown, Provider Primary Care Provider Unava ilable Encounters Date Type Department Care Team Description 03/29/2024 Lab Requisition [facility] Pathology & Laboratory [facility] [address] [place] [address] Outr Resulting Lab, Provider 02/25/2024 Lab Requisition [facility] Pathology & Laboratory [facility] [address] [place] [address] Outr Resulting Lab, Provider from Last 3 [...] Last Done Comments Hepatitis C Screen 1960 Fall Risk Screening 11/21/2023 COVID-19 Vaccine ( season) 2024 RSV Immunization ( o r 60+ Years) (1 - 1-dose 75+ series) 2033 Procedures Procedure Name Priority Date/Time Associated Diagnosis Comments RHEUMATOID FACTOR Routine 03/28/2024 15: 53 EDT ANTI NUCLEAR AB (ALEJANDRA), IFA Routine 03/28/2024 15:53 EDT SPEP, INCLUDES QUANTITATION OF MONOCLONAL SPIKE PERFORMABLE Today 02/25/2024 12:50 EDT PROTEIN, TOTAL Today 02/25/2024 12:50 EDT SPEP, INCLUDES QUANTITATION OF MONOCLONAL SPIKE Routine 02/25/2024 12:50 EDT from Last 3 Months Results * RHEUMATOID FACTOR (03/28/2024 15:53 EDT) [facility] Rheumatoid Factor <8.6 <12.0 IU/mL 03/29/2024 17:30 EDT [facility] Blood VENOUS BLOOD / Unknown 03/28/2024 15:53 EDT 03/29/2024 17:12 EDT us Provider Outr Resulting Lab CHEMISTRY & BLOOD GA S ORDERABLES Final Result Performing Organization Address [facility] Co de Phone Number [facility] [address] [place] [address] * ANTI NUCLEAR AB (ALEJANDRA), IFA (03/28/2024 15:53 EDT) [facility] ALEJANDRA Interpretation Negative Negative 2023 15:57 EDT [facility] Comment:No titer performed, ALEJANDRA Screen is negative. Blood VENOUS BLOOD / Unknown 03/28/2024 15:53 EDT 03/29/2024 17:12 EDT Narrative [facility] - 03/30/2024 15:57 EDT Results were obtained with the [employer] NOVA Lite HEp-2 ALEJANDRA Kit by indirect immunofluorescence. us Provider Outr Resulting Lab IMMUNOLOGY AND SEROL OGY ORDERABLES Final Result Performing Organization Address City/[facility]/ZIP Co de Phone Number [facility] [address] [place] [address] * (ABNORMAL) SPEP, INCLUDES QUANTITATION OF MONOCLONAL SPIKE PERFORMABLE (02/25/2024 12:50 EDT) Albumin % 57.4 55.8 - 66.1 % 02/28/2024 14:27 [facility] Albumin g/dL 4.3 3.6 - 5.2 g/dL 02/28/2024 14:27 [facility] Alpha-1 % 4.4 2.9 - 4.9 % 02/28/2024 14:27 [facility] Alpha-1 g/dL 0.30 0.15 - 0.40 g/dL 02/28/2024 14:27 [facility] Alpha-2 % 9.9 7.1 - 11.8 % 02/28/2024 14:27 [facility] Alpha-2 g/dL 0.70 0.50 - 1.00 g/dL 02/28/2024 14:27 [facility] Beta % 14.0(H) 8.4 - 13.1 % 02/28/2024 14:27 [facility] Beta g/dL 1.10 0.60 - 1.20 g/dL 02/28/2024 14:27 [facility] Gamma % 14.3 11.1 - 18.8 % 02/28/2024 14:27 [facility] Gamma g/dL 1.10 0.60 - 1.60 g/dL 02/28/2024 14:27 [facility] SPEP Comment No apparent monoclonal protein seen on serum electrophoresis 02/28/2024 14:27 [facility] Comment:See scanned/suppleme ntary report. Total Protein 7.5 6.3 - 8.2 g/dL 02/28/2024 14:27 [facility] Blood VENOUS BLOOD / Unknown 02/25/2024 12:50 EDT 02/25/2024 21:57 EDT us Provider Outr Resulting Lab CHEMISTRY & BLOOD GA S ORDERABLES Final Result [facility] [address] [place] [address] * PROTEIN, TOTAL (02/25/2024 12:50 EDT) Blood VENOUS BLOOD / Unknown 02/25/2024 12:50 EDT 02/25/2024 21:57 EDT us Provider Outr Resulting Lab CHEMISTRY & BLOOD GA S ORDERABLES Final Result [facility] [address] [place] [address] from Last 3 Months Insurance MEDICAID [place] Care Teams Burn Nurse Relationship Specialty Start Date End Date Unknown, Provider, PCP - General 04/27/15
--- OUTSIDE RECORDS SUMMARY | 2024-05-26 00:57 | XMS_ITS | Encounter Summary ---
Author Organization [facility] Address [facility] [place] [address] Care Team Providers Care Electrical Prospecting Supervisor Name Role Phone Soraida Sims MD Primary Care Provider [phone] Reason for Referral * Diagnostic Test (Routine) - Closed Specialty Diagnoses / Procedures Referred By Contac t Referred To Contact Radiology Diagnoses Primary osteoarthritis of right shoulder Procedures XR Fluoro Guided Joint Injection Large Right Richy Paige MD [facility] [place] [address] [facility] Rad Xray [address] [place] [address] [place] [address] Referral ID Status Reason Start Date Expiration Date V isits Requested Visits Authorized [id number] Closed Specialty Service Requested 04/10/2021 10/09/2022 1 1 * Diagnostic Test (Routine) - Closed Specialty Diagnoses / Procedures Referred By Contac t Referred To Contact Radiology Diagnoses Primary osteoarthritis of left shoulder Procedures XR Fluoro Guided Joint Injection Large Left Richy Paige MD [facility] [place] [address] [facility] Rad Xray [address] [place] [address] [place] [address] Referral ID Status Reason Start Date Expiration Date V isits Requested Visits Authorized [id number] Closed Specialty Service Requested 04/10/2021 10/09/2022 1 1 Encounter Details Date Type Department Care Team (Late st Contact Info) Description 04/10/2021 Telephone Orthopaedics at [facility] [place] [address] Richy Paige MD [facility] [address] [place] [address] Social History Tobacco Use Types Packs/Day Years [...] 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 She is tired of her pain and [...] who have questions please contact the health hearing healthcare practitioner that requested your imaging first. ? Narrative 05/13/2021 1:36 PM EST HISTORY: Right shoulder arthritis RIGHT SHOULDER GH JOINT INJECTION UNDER FLUOROSCOPY TECHNIQUE: After an extensive conversation with the patient regarding risks and benefits, oral and written consent were obtained.?A pre- procedural time-out was performed, including review of the patient's relevant electronic medical record and allergies, as per [facility] protocol. The patient was placed supine on [...] relevant electronic medicalrecord and allergies, as per [facility] protocol. The patient was placed supine on [...] patients who have questions please contactthe health hearing healthcare practitioner that requested your imaging first. Richy Paige [...] who have questions please contact the health hearing healthcare practitioner that requested your imaging first. ? Narrative 05/13/2021 1:32 PM EST HISTORY: Left shoulder arthritis. LEFT SHOULDER GH JOINT INJECTION UNDER FLUOROSCOPY TECHNIQUE: After an extensive conversation with the patient regarding risks and benefits, oral and written consent were obtained.?A pre- procedural time-out was performed, including review of the patient's relevant electronic medical record and allergies, as per [facility] protocol. The patient was placed supine on [...] relevant electronic medicalrecord and allergies, as per [facility] protocol. The patient was placed supine on [...] patients who have questions please contactthe health hearing healthcare practitioner that requested your imaging first. Richy Paige [...] region documented in this encounter Care Teams Electrical Prospecting Supervisor Relationship Specialty Start Date End Date Soraida Sims MD [address] [place] [id number] PCP - General Family Medicine 07/30/20 documented as of this encounter
--- OUTSIDE RECORDS SUMMARY | 2024-05-26 00:57 | XMS_ITS | Encounter Summary ---
Author Organization [facility] Address [address] [place] [address] Care Team Providers Care Storage Consultant Name Role Phone Unknown, Provider Primary Care Provider Unava ilable Encounter Details Date Type Department Care Team (Latest Contact Info) Description 07/05/2018 10:21 EST - 07/05/2018 23:59 EST Hospital Encounter [address] [address] Unknown, ProviderMD Discharge Disposition: Home or Self [...] Code Departure Means Destination Home or Self Nursing Home documented in this encounter Plan of Treatment Not on file documented as of this encounter Visit Diagnoses Not on filedocumented in this encounter Care Teams Storage Consultant Relationship Specialty Start Date End Date Unknown, ProviderMD PCP - General 04/27/15 documented as of this encounter
--- OUTSIDE RECORDS SUMMARY | 2024-05-26 00:57 | XMS_ITS | Encounter Summary ---
[place] [address] Care Team Providers Care Ends Down Checker Name Role Phone Soraida Sims MD Primary Care Provider Reason for Referral * Consultation (Routine) - Closed Specialty Diagnoses / Procedures Referred By Luís fairbanks Referred To Contact Orthopaedics Diagnoses Bilateral shoulder pain, unspecified chronicity Soraida Sims MD [address] [place] [address] [facility] [address] [place] [phone] Referral ID Status Reason Start Date Expiration Date V isits Requested Visits Authorized [id number] Closed Consult, Test & Treat PCP Updated and/or Approved 09/01/2022 09/01/2023 6 6 Encounter Details Date Type Department Care Team (Latest Contact Info) Description 09/01/2022 Transcribe Orders eDH Incoming Referrals [phone] Soraida Sims MD [address] [place], [place] [address] Bilateral shoulder pain, unspecified chronicity Social History [...] chronicity documented in this encounter Care Teams Ends Down Checker Relationship Specialty Start Date End Date Soraida Sims MD [address] [place] [address] PCP - General Family Medicine 07/30/20 documented as of this encounter
--- OUTSIDE RECORDS SUMMARY | 2024-05-26 00:57 | XMS_ITS | Encounter Summary ---
Author Organization [facility] Address [address] [place] [address] Care Team Providers Care Structural Test Engineer Name Role Phone Unknown, Provider Primary Care Provider Unava ilable Encounter Details Date Type Department Care Team (Late st Contact Info) Description 02/25/2024 Lab Requisition [facility] Pathology & Laboratory Medicine - [facility] [address] [place] [address] Outr Resulting Lab, Provider Social History Tobacco [...] Procedure Name Priority Date/Time Associated Diagnosis Comments SPEP, INCLUDES QUANTITATION OF MONOCLONAL SPIKE PERFORMABLE Today 02/25/2024 12:50 EDT SPEP, INCLUDES QUANTITATION OF MONOCLONAL SPIKE Routine 02/25/2024 12:50 EDT PROTEIN, TOTAL Today 02/25/2024 12:50 EDT documented in this encounter Results * (ABNORMAL) SPEP, INCLUDES QUANTITATION OF MONOCLONAL SPIKE PERFORMABLE (02/25/2024 12:50 EDT) Albumin % 57.4 55.8 - 66.1 % 02/28/2024 14:27 [facility] Albumin g/dL 4.3 3.6 - 5.2 g/dL 02/28/2024 14:27 [facility] Alpha-1 % 4.4 2.9 - 4.9 % 02/28/2024 14:27 [facility] Alpha-1 g/dL 0.30 0.15 - 0.40 g/dL 02/28/2024 14:27 [facility] Alpha-2 % 9.9 7.1 - 11.8 % 02/28/2024 14:27 [facility] Alpha-2 g/dL 0.70 0.50 - 1.00 g/dL 02/28/2024 14:27 [facility] Beta % 14.0(H) 8.4 - 13.1 % 02/28/2024 14:27 [facility] Beta g/dL 1.10 0.60 - 1.20 g/dL 02/28/2024 14:27 [facility] Gamma % 14.3 11.1 - 18.8 % 02/28/2024 14:27 [facility] Gamma g/dL 1.10 0.60 - 1.60 g/dL 02/28/2024 14:27 [facility] SPEP Comment No apparent monoclonal protein seen on serum electrophoresis 02/28/2024 14:27 [facility] Comment:See scanned/suppleme ntary report. Total Protein 7.5 6.3 - 8.2 g/dL 02/28/2024 14:27 [facility] Blood VENOUS BLOOD / Unknown 02/25/2024 12:50 EDT 02/25/2024 21:57 EDT us Provider Outr Resulting Lab CHEMISTRY & BLOOD GA S ORDERABLES Final Result [facility] [address] [place] [address] * PROTEIN, TOTAL (02/25/2024 12:50 EDT) Blood VENOUS BLOOD / Unknown 02/25/2024 12:50 EDT 02/25/2024 21:57 EDT us Provider Outr Resulting Lab CHEMISTRY & BLOOD GA S ORDERABLES Final Result [facility] [address] [place] [address] documented in this encounter Visit Diagnoses Not on filedocumented in this encounter Care Teams Structural Test Engineer Relationship Specialty Start Date End Date Unknown, Provider, PCP - General 04/27/15 documented as of this encounter
--- OUTSIDE RECORDS SUMMARY | 2024-05-26 00:57 | XMS_ITS | Encounter Summary ---
Author Organization [facility] Address [address] [place] [address] Care Team Providers Care Raftsman Name Role Phone Unavailable Primary Care Provider Unavailabl e Encounter Details Date Type Department Care Team (Late st Contact Info) Description 03/24/2005 Results Only [facility] [address] [place] [address] Zane Thomason, BRUSH FABRICATION SUPERVISOR [address] [place] [address] Social History Tobacco Use Types [...] 68. [facility] Report Status Final [id number] [facility] 03/24/2005 9:03 EDT 04/02/2005 9:03 EDT us Zane Thomason NP MICROBIOLOGY - GENERAL ORDER TAIWO Final Result [facility] [address] [place] [address] * CYTOPATHOLOGY (03/24/2005 0:00 EDT) Pathology Report: CYTOPATHOLOGY REPORT Reports generated via electronic interface contain original data; however they are lacking the format of the original report. Caution should be taken when reading/interpreti ng unformatted reports. Name: ? DORI FISHMAN ? Accession #: ? [id number] : ? 1960 (Age: 44) ??F ?Collect Date: ? 03/24/2005 Location: ? [facility] ? Receive Date: ? 03/26/2005 Provider: ?ZANE THOMASON BRUSH FABRICATION SUPERVISOR Copy to: ? Specimen/Source: ?ThinPrep Pap Test, Cervix/Endocervix, processed on Reality Mobile ThinPrep Imaging System, with manual evaluation Last [...] Document reviewed and electronically signed by: ? Tricia Smalls, MILLIE(ASCP) ? Report Date: ??04/01/2005 16:21 End of Report [facility] 03/24/2005 03/26/2005 us Zane Thomason NP PATHOLOGY ORDERABLES Final R esult [facility] [address] [place] [address] documented in this encounter Visit Diagnoses Not on filedocumented in this encounter
--- OUTSIDE RECORDS SUMMARY | 2024-05-26 00:57 | XMS_ITS | Encounter Summary ---
Author Organization [facility] Address [facility] [place] [address] Care Team Providers Care Rn Med Surg Name Role Phone Radha Mo TILE MASON Primary Care Provider + Encounter Details Date Type Department Care Team (Late st Contact Info) Description 06/26/2020 Ancillary Procedure Radiology Library at [facility] [place] [address] Radha Mo APRN [address] [place] [address] Social History Tobacco Use Types Packs/Day Years [...] DX Shoulder (06/26/2020 12:00 AM EST) Narrative [facility] - 07/23/2020 7:52 PM EST This exam is auto-finalizing. It's purpose is for storage only. Radha Mo APRN IMG FILM LIBRARY ORDERABLES [place], [place] documented in this encounter Visit Diagnoses Not on filedocumented in this encounter Care Teams Rn Med Surg Relationship Specialty Start Date End Date Radha Mo APRN PCP - General 05/06/10 07/29/20 documented as of this encounter
--- OUTSIDE RECORDS SUMMARY | 2024-05-26 00:57 | XMS_ITS | Encounter Summary ---
Author Organization [facility] [place] [address] Care Team Providers Care Information Assurance Engineer Name Role Phone Soraida Sims MD Primary Care Provider [phone] Reason for Visit * Reason Comments Establish Care BILAT SHOULDER PAIN DISCUSS SURGERY * Consultation (Routine) - Authorized Specialty Diagnoses / Procedures Referred By Contdavian t Referred To Contact Orthopaedics Diagnoses Shoulder pain, unspecified chronicity, unspecified laterality READY FOR EMMANUEL TOTAL SHOULDER REPLACEMENTS Soraida Sims MD [address] [place] [address] [facility] [address] [place] [phone] Referral ID Status Reason Start Date Expiration Date Visits Requested Visits Authorized [id number] Authorized Consult, Test & Treat PCP Updated and/or Approved 01/17/2024 01/16/2025 6 6 Encounter Details Date Type Department Care Team (Late st Contact Info) Description 02/08/2024 11:20 AM EDT Office [place] [phone] Richy Paige MD [facility] DR ORTHOPAEDIC SURGERY [place], [place] [id number] Bilateral shoulder pain, unspecified chronicity Social History [...] the request of: Soraida Sims MD [address] [place] [address] Chief Complaint: Bilateral severe shoulder pain History of Present Illness: Afsaneh Lowe is a 63 y.o. right hand dominant female who presents with bilateral chronic shoulder pain worse on the left than the right. She was referred by Dr. De La Torre and Dr. Kelly after being evaluated at [facility]. She reports a chronic history of shoulder [...] daily for pain. 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 Brownlee at 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 Haile Raymond MD 02/08/[address] [facility] This note was created with the assistance [...] chronicity documented in this encounter Care Teams Information Assurance Engineer Relationship Specialty Start Date End Date Soraida Sims MD [address] [place] [address] PCP - General Family Medicine 07/30/20 documented as of this encounter
--- OUTSIDE RECORDS SUMMARY | 2024-05-26 00:57 | XMS_ITS | Encounter Summary ---
Author Organization [place] [address] Care Team Providers Care Electromechanic Name Role Phone Soraida Sims MD Primary Care Provider Reason for Visit * Reason Comments Establish Care ARTHRITIS OF LT FLORIN OHUMERAL JOINT - NGUYỄN * Consultation (Routine) - Closed Specialty Diagnoses / Procedures Referred By Contdavian t Referred To Contact Orthopaedics Diagnoses ARTHRITIS OF LT GLENOHUMERAL JOINT - NGUYỄN Tarik De La Torre MD [address] [place] [address] [facility] [address] [place] [address] Referral ID Status Reason Start Date Expiration Date V isits Requested Visits Authorized [id number] Closed Consult, Test & Treat Connection Center PCP Updated and/or Approved 01/09/2021 01/09/2022 6 6 Encounter Details Date Type Department Care Team (Latest Contact Info) Description 04/04/2021 1:00 PM EDT [place] [phone] Richy Paige MD [facility] [place] [address] Primary osteoarthritis of left shoulder; [...] Tarik De La Torre MD [address] [place] [address] Chief Complaint: Bilateral shoulder pain L>R History of Present Illness: Afsaneh Lowe is a 60 y.o. right hand dominant female who presents with bilateral chronic shoulder pain worse on the left than the right. She was referred by Dr. De La Torre and Dr. Kelly after being evaluated at [facility]. She reports a chronic history of [...] daily for pain. 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 Brownlee at 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 She works very hard as a dog breeder, which is very physically demanding on both [...] be concerned about her work as a dog breeder if she had these in place, but [...] and Elbow Surgeon Department of Orthopaedic Surgery [facility] This note was created with the [...] region documented in this encounter Care Teams Electromechanic Relationship Specialty Start Date End Date Soraida Sims MD [address] [place] [address] PCP - General Family Medicine 07/30/20 documented as of this encounter
--- OUTSIDE RECORDS SUMMARY | 2024-05-26 00:57 | XMS_ITS | Encounter Summary ---
Author Organization [facility] Address [facility] [place] [address] Care Team Providers Care Display Department Manager Name Role Phone Soraida Sims MD Primary Care Provider [phone] Reason for Visit * Reason Onset Date Comments Injections 04/15/2021 Encounter Details Date Type Department Care Team (Late st Contact Info) Description 04/15/2021 [place] [phone] Richy Paige MD [facility] [place] [address] Injections Social History Tobacco Use Types Packs/Day [...] with an arrival time of 10:30AM. Left [phone] as a call back if date and time does not work. Also a racing car driver is required and if you start an antibiotic prior to this scheduled appointment it will need to be re-scheduled documented in this encounter Plan of Treatment Not on file documented as of this encounter Visit Diagnoses Not on filedocumented in this encounter Care Teams Display Department Manager Relationship Specialty Start Date End Date Soraida Sims MD [address] [place] [address] PCP - General Family Medicine 07/30/20 documented as of this encounter
--- OUTSIDE RECORDS SUMMARY | 2024-05-26 00:58 | XMS_ITS | Encounter Summary ---
Author Organization [facility] Address [address] [place] [address] Care Team Providers Care Middle School Band Teacher Name Role Phone Unavailable Primary Care Provider Unavailabl e Encounter Details Date Type Department Care Team (Late st Contact Info) Description 01/08/2003 Results Only [facility] - [facility] [address] [place] [address] Zane Thomason, LATHE SPOTTER [address] [place] [address] Social History Tobacco Use Types [...] ? DORI LOWE ? Accession #: ? [id number] : ? 1960 (Age: 42) ??F ?Collect Date: ? 01/08/2003 Location: ? [facility] ? Receive Date: ? 01/10/2003 Provider: ?ZANE THOMASON LATHE SPOTTER Copy to: ? Specimen/Source: ?ThinPrep Pap Test, [...] End of Report [facility] 01/08/2003 01/10/2003 us Zane Thomason NP PATHOLOGY ORDERABLES Final R esult [facility] [address] [place] [address] documented in this encounter Visit Diagnoses Not on filedocumented in this encounter
--- OUTSIDE RECORDS SUMMARY | 2024-05-26 00:58 | XMS_ITS | Encounter Summary ---
Author Organization [facility] Address [address] [place] [address] Care Team Providers Care Special Makeup Fx Artist Instructor Name Role Phone Unavailable Primary Care Provider Unavailabl e Encounter Details Date Type Department Care Team (Late st Contact Info) Description 08/10/2000 Results Only [facility] - [facility] conversion [address] [place] [address] Meenu Albert MD [address] [address] Social History Tobacco Use Types [...] ? DORI LOWE ? Accession #: ? [id number] : ? 1960 (Age: 39) ??F ?Collect Date: ? 08/10/2000 Location: ? [facility] ? Receive Date: ? 08/12/2000 Provider: ?MEENU ALBERT MD Copy to: ? Specimen/Source: ?ThinPrep Pap Test, Cervix/Endocervix Last Menstrual Period: ? 07/24/00 Previous Gynecologic Pathology: ? Yes ? SPECIMEN ADEQUACY ? Satisfactory for evaluation. GENERAL CATEGORIZATION ? Within Normal Limits ? Document reviewed and electronically signed by: ? Karly Hernandez, [place](ASCP) ? Report Date: ??08/12/2000 11:34 End of Report [facility] 08/10/2000 08/12/2000 us Meenu Albert MD PATHOLOGY ORDERABLES Final Resul t [facility] [address] [place] [address] documented in this encounter Visit Diagnoses Not on filedocumented in this encounter
--- NOTE | 2024-05-26 14:30 | DI.US_ITS ---
APPROVED REPORT EXAM: Comprehensive 2D, Doppler, and color-flow Echocardiogram Other Information Technically limited study due to body habitus, inability to position patient, smoking history. Conclusion Mild concentric left ventricular hypertrophy. Ejection fraction is 60 to 65%. Wall motion is normal Normal right ventricular size and function Both atria are normal in size There is no structural or hemodynamically significant valvular disease Wall motion Left Ventricle The left ventricle is normal size. The left ventricular systolic function is normal. The left ventric ular ejection fraction is within the normal range. Mild concentric left ventricular hypertrophy. Ther e is normal LV segmental wall motion. There is no ventricular septal defect visualized. LVEF is 56-60 %. Right Ventricle The right ventricle is normal size. The right ventricular systolic function is normal. Atria The left atrium size is normal. The right atrium size is normal. The interatrial septum is intact wit h no evidence for an atrial septal defect. Aortic Valve The aortic valve is normal in structure. Aortic valve is trileaflet. There is no aortic valvular sten osis. No aortic regurgitation is present. Mitral Valve The mitral valve is normal in structure. No evidence of mitral valve stenosis. There is no mitral irene ve regurgitation noted. Tricuspid Valve The tricuspid valve is normal in structure. There is no tricuspid valve stenosis. Trace tricuspid reg urgitation. The RVSP is 25.7 mmHg. Pulmonic Valve The pulmonary valve is normal in structure. There is no pulmonic valvular stenosis. There is no pulmo astrid valvular regurgitation. Great Vessels The aortic root is normal in size. Ascending aorta is not well visualized. Aortic arch is normal in c aliber. IVC is normal in size and collapses >50% with inspiration. Pericardium There is no pericardial effusion. 2D Dimensions IVSD d PLAX 1.03 cm F: 0.6-1.0 Ao Root d 2.58 cm F: 2.7 - 3.3 LVPW d PLAX 1.03 cm F: 0.6 - 1.0 LVID d PLAX 4.19 cm F: 3.8 - 5.2 LVDs 2.87 cm F: 2.2 - 3.5 LV EF Teichholz 59.8 % FS 31.47 % LV EDV (Teich) 78.2 mL LV ESV (Teich) 31.5 mL Stroke Vol Index (Teich) 26.57 M-Mode TAPSE 1.64 cm (M/F) >1.7 Auto EF LV EDV A4C 66.1 mL LV EDV A2C 76.6 mL LV EDV BP 71.2 mL LV ESV A4C 29.1 mL LV ESV A2C 31.4 mL LV ESV BP 29.9 mL LVEF(%) A4C 56.0 % LVEF(%) A2C 59.0 % LVEF(%) BP 58.0 % LV SV A4C 37.0 ml LV SV A2C 45.2 ml LV SV BP 41.3 ml LV CO A4C 3.7 L/min LV CO A2C 4.0 L/min LV CO BP 3.9 L/min HR A4C 101.13 BPM HR A2C 88.89 BPM LV EDV Index (BP) LA Volume LA Length A4C 4.5 cm LA Length A2C 4.5 cm LA Area A4C s 9.08 cm2 LA Area A2C s 8.57 cm2 LA Vol A4C A-L 15.57 mL LA Vol A2C A-L 13.76 mL LA Vol Biplane A-L 14.7 mL LA Vol/BSA A4C A-L LA Vol/BSA A2C A-L LA Vol/BSA BP A-L 8.4 mL/m2 LA Vol A4C MOD 13.7 mL LA Vol A2C MOD 12.9 mL LA Vol BP MOD 13.1 mL LV Diastology MV E' medial 0.133 (>0.07 m/s) MV E Vmax 0.84 (0.4-1.3 m/s) MV E' lateral 0.123 (>0.1 m/s) Aortic Valve AoV Vmax 1.27 m/s LVOT Vmax 0.85 m/s AoV Peak Grad 6.5 mmHg LVOT Peak Grad 2.9 mmHg AoV Area (Vmax) 2.08 cm2 LVOT VTI 0.155 m AoV VTI 0.208 m LVOT Mean Grad 1.5 mmHg AoV Mean Manoj. 0.91 m/s LVOT SV 48.28 mL AoV Mean Grad 3.7 mmHg LVOT Diam s 1.95 cm AoV Area (VTI) 2.32 cm2 AV Regurg Peak Gr. 6.49 mmHg Velocity Ratio 0.67 Pulmonary Valve PV Vmax 0.74 (0.5-1.5 m/s) RVOT Vmax 0.43 m/s PV Peak Grad 2.2 mmHg RVOT Peak Gr. 0.7 mmHg PV Mean Amnoj 0.56 m/s RVOT VTI 0.092 m PV Mean Grad 1.4 mmHg RVOT Mean Gr. 0.5 mmHg Tricuspid Valve RA Pressure 3.00 mmHg TR Vmax 2.38 m/s TR Peak Grad 22.7 mmHg RVSP (TR) 25.7 mmHg
== END 2024-05-26 01:01 ==
LOC: DI 00:41
PROVIDERS: PCP Family Medicine; Visit Provider Surgery
DX: I51.7 Cardiomegaly (principal)
CPT/HCPCS: 93306

== ENCOUNTER → 2025-01-08 11:19 | Outpatient (BNVA) | payer MEDICARE, SELFPAY | PROVIDERS: PCP Family Medicine; Referring Provider Family Medicine; Visit Provider Physician Assistant Surgical | DX: I26.94 Multiple subsegmental thrombotic pulmonary emboli without acute cor pulmonale (principal); J44.9 Chronic obstructive pulmonary disease, unspecified; F17.210 Nicotine dependence, cigarettes, uncomplicated | CPT/HCPCS: 99214; G0296 ==

== ENCOUNTER 2025-01-29 10:20 | Outpatient (CLI) | payer MEDICARE, SELFPAY ==
--- NOTE | 2025-01-29 07:30 | DI.CTLCSR_ITS ---
Exam(s) CT CHEST LUNG CANCER SCREEN EXAM: CT CHEST LUNG CANCER SCREEN CLINICAL HISTORY: Screening for lung cancer F17.210 [employer] TECHNIQUE: Imaging Protocol: Axial computed tomography images with coronal and sagittal reformatted images were created and reviewed. Low dose screening protocol. COMPARISON: CT CT CHEST LUNG CANCER SCREEN from 06/22/[address] CHEST PE ABD PELVIS W from 09/17/2023 FINDINGS: Tracheobronchial tree: No bronchiectasis or mucus plugging. Mediastinum and Milagros: No dominant adenopathy or fluid collection. Pulmonary parenchyma: No consolidation or dominant measurable mass. Mild emphysematous changes. No significant interstitial changes. Lung Nodules: New circumscribed 5 x 5 x 4 millimeter nodule noted in the posterior left upper lobe. No change in tiny left the mid upper lobe perifissural nodule. Additional stable calcified perifissural nodule also seen adjacent to the right minor fissure. Pleura: No effusion. No pneumothorax. Heart: The heart is not dilated. Moderate coronary artery calcifications are seen. No pericardial effusion. Aorta: Thoracic aorta non-dilated. Mild atherosclerotic changes. Upper abdomen: Unremarkable. Bones: Unremarkable for age. Soft Tissues: Unremarkable. IMPRESSION: New 5 millimeter left upper lobe nodule. Lung RADS Cat 3 - Probably Benign: Probably benign finding(s) - short term follow-up suggested; include nodules with a low likelihood of becoming a clinically active cancer. Lung-RADS 1.0 CATEGORIES: Category 0 - Prior chest CT exam(s) being located for comparison. Category 1 - Annual screening in 12 months. No nodules or definitely benign nodules. Category 2 - Annual screening in 12 months. Benign appearance. Nodules with low likelihood of becoming active cancer. Category 3 - 6-month follow-up. Probably benign. Short-term follow-up suggested. Nodules with low likelihood of becoming active cancer. Category 4A - 3-month follow-up and CT/PET if >8 mm in size. Suspicious finding. Findings which require additional testing. Category 4B - Findings which require additional testing and tissue sampling. Category 4X - Category 3 or 4 nodules with additional features or imaging findings that increases the suspicion of malignancy. Modifier S- Potentially clinically significant findings (non lung cancer) RADIATION DOSE DELIVERED: Total DLP DATA REPOSITORY: All CT scans at this facility are submitted to the National Radiology Data Registry (NRDR) Dose Index Registry (DIR) with the [employer] (A[employer]). RADIATION OPTIMIZATION: All CT scans at this facility use at least one of these dose optimization techniques: automated exposure control; mA and/or kV adjustment per patient size (includes targeted exams where dose is matched to clinical indication); or iterative reconstruction.
== END 2025-01-29 10:40 ==
PROVIDERS: PCP Family Medicine; Visit Provider Physician Assistant Surgical
DX: Z12.2 Encounter for screening for malignant neoplasm of respiratory organs (principal); F17.210 Nicotine dependence, cigarettes, uncomplicated; R91.1 Solitary pulmonary nodule
CPT/HCPCS: 71271

== ENCOUNTER 2025-01-29 15:18 | Outpatient (CLI) | payer MEDICARE, SELFPAY ==
[2025-01-29 14:13] LABS: Glucose Negative (Negative)
[2025-01-29 14:16] LABS: Abs Immature Grans 0.04 10^3/uL (0.0-0.06); HCT 42.8 % (36.0-46.0); HGB 14.1 g/dL (11.2-15.7); Immature Grans % 0.4 %; MCH 29.9 pg (27.0-33.0); MCHC 32.9 % (32.0-36.0); MCV 91 fL (80-95); MPV 11.2 fL (8.0-11.0); Platelet Count 295 10^3/uL (130-400); RBC 4.71 10^6/uL (3.93-5.22); RDW 12.9 % (11.7-14.6); RDW-SD 42.4 fL; WBC 9.68 10^3/uL (4.4-10.8)
[2025-01-29 14:31] LABS: C & S Indicated? No
[2025-01-29 15:00] LABS: ALT 19 U/L (14-59); AST 18 U/L (15-37); Albumin 3.8 g/dL (3.4-5.0); Alkaline Phosphatase 59 U/L (46-116); Anion Gap 6.8 mmol/L (3-11); BUN 8 mg/dL (7-18); Bilirubin, Total 0.6 mg/dL (0.2-1.0); CO2 32.2 mmol/L (21.0-32.0); Calcium 9.2 mg/dL (8.5-10.1); Chloride 103 mmol/L (98-107); Estimated GFR 81.21 (mL/min/1.73m2); Glucose 100 mg/dL (74-106); Potassium 4.4 mmol/L (3.5-5.1); Sodium 142 mmol/L (136-145); TSH (W/Ref FT4) 1.64 uIU/mL (0.36-3.74); Total Protein 7.4 g/dL (6.4-8.2)
== END 2025-01-29 15:19 | disposition home or self-care (01) ==
LOC: LBO 15:19
PROVIDERS: PCP Family Medicine; Visit Provider Family Medicine
DX: R35.0 Frequency of micturition (principal); R53.83 Other fatigue; R63.4 Abnormal weight loss
CPT/HCPCS: 36415; 71271; 80053; 81003; 81015; 84443; 85025